=== PATIENT | female | born 1940 | race Caucasian/White ===

== ENCOUNTER 2022-07-28 17:32 | Emergency (ER) | payer MEDICARE, SELFPAY ==
--- NOTE | 2022-07-28 18:23 | PC.NURSE ---
PT ALERT AND SITTING UP IN WHEELCHAIR TALKING WITH FAMILY
[2022-07-28 19:34] LABS: POC Glucose,Bedside 273 (70-110)
[2022-07-28 19:34] LABS: POC Glucose,Bedside 209 (70-110)
--- NOTE | 2022-07-28 19:37 | XR_ITS ---
PROCEDURE INFORMATION: Exam: XR Chest Exam date and time: 07/28/2022 8:03 PM Age: 82 years old Clinical indication: Dyspnea TECHNIQUE: Imaging protocol: Radiologic exam of the chest. Views: 1 view. COMPARISON: No relevant prior studies available. FINDINGS: Lungs: Relative lucency within the upper lung zones without lobar consolidation. Pleural spaces: No pneumothorax. Heart/Mediastinum: Borderline cardiomegaly which may be projectional. Bones/joints: Degenerative changes of the shoulders. IMPRESSION: Chronic changes without definite acute process.
[2022-07-28 19:44] LABS: Coronavirus 19, PCR Not Detected (NotDetected); Influenza B, PCR Not Detected (NotDetected)
[2022-07-28 19:49] VITALS: BP 122/66; PULSE 85; RESP 16; TEMP 37.8; O2SAT 97; BMI 39.3
[2022-07-28 20:18] LABS: Basophils # 0.1 K/mm3 (0-0.2); Basophils % 0.4 % (0.1-2.0); Eosinophils % 0.1 % (0.1-12.0); Hematocrit 32.6 % (37.0-47.0); Hemoglobin 10.4 g/dL (12.2-16.2); Lymphocytes # 0.8 K/mm3 (0.7-4.5); Mean Corpuscular HGB Conc 31.9 g/dL (31.8-35.4); Mean Corpuscular Hemoglobin 30.7 pg (27.0-31.2); Mean Corpuscular Volume 96.4 fl (81-99); Mean Platelet Volume 9.5 fl (7.4-10.4); Monocytes # 1.3 K/mm3 (0.1-1.0); Monocytes % 11.2 % (1.7-9.3); Neutrophils # 9.2 K/mm3 (1.8-7.8); Neutrophils % 81.1 % (37.0-80.0); Platelet Count 267 K/mm3 (142-424); Red Blood Count 3.38 M/mm3 (4.20-5.40); White Blood Count 11.4 K/mm3 (4.8-10.8)
[2022-07-28 20:22] LABS: Influenza A, PCR Detected (NotDetected)
--- NOTE | 2022-07-28 20:23 | PC.NURSE ---
RT notified of vbg
[2022-07-28 20:24] LABS: Chloride 100 mmol/L (98-107); Sodium 131 mmol/L (136-145)
[2022-07-28 20:25] LABS: Potassium 4.4 mmoL/L (3.5-5.1)
[2022-07-28 20:27] LABS: Alanine Aminotransferase 29 U/L (12-78); Alkaline Phosphatase 101 U/L (38-126); Aspartate Amino Transferase 32 U/L (14-36); Bilirubin,Total 0.2 mg/dl (0.2-1.3); Blood Urea Nitrogen 44 mg/dl (7-17); Estimated Glomerular Filt Rate 15 ml/min (>60); GFR (African American) 18 ML/MIN (>60)
[2022-07-28 20:28] LABS: Albumin Level 3.7 g/dl (3.5-5.0); Albumin/Globulin Ratio 1.4 (1.1-1.8); Anion Gap 7.4 mEq/L (5-15); Calcium 9.2 mg/dl (8.4-10.2); Carbon Dioxide 28 mmol/L (22.0-30.0); Globulin 2.6 g/dL (1.3-3.2); Glucose 311 mg/dl (74-100); Total Protein,Serum 6.3 g/dl (6.3-8.2)
[2022-07-28 20:31] LABS: Acetone, Serum (Rapid) None Detected (None Detect)
[2022-07-28 20:38] LABS: Microscopic, Urine URINE MICROSCOPIC (MICROSCOPIC)
[2022-07-28 20:39] LABS: Appearance,Urine CLEAR (Clear); Bilirubin,Urine Negative (Negative); Blood, Urine TRACE-I (Negative); Color,Urine YELLOW (Yellow); Glucose,Urine (UA) Negative (Negative); Ketones,Urine Negative (Negative); Leukocyte Esterase,Urine Negative (Negative); Nitrate,Urine Negative (Negative); Protein,Urine 2+ (Negative); Urobilinogen,Urine 0.2 EU/dl (0.2)
[2022-07-28 20:41] LABS: VBG PH 7.36 mmol/L (7.31-7.41)
[2022-07-28 21:02] LABS: Bacteria,Urine Trace /lpf; RBC,Urine Occasional #/hpf (0-3); Squamous Epithelial Cell,Urine Occasional #/hpf (0-5); WBC,Urine Occasional #/hpf (0-3)
--- NOTE | 2022-07-28 21:12 | HMH.EDWEAK ---
Discharge Plan Disposition Patient Disposition: Home, Self-Care Prescriptions Prescriptions: New oseltamivir [Tamiflu] 30 mg capsule 30 mg PO DAILY 5 Days Qty: 5 0RF No Action fluticasone propion-salmeterol [Wixela Inhub] 250-50 mcg/dose blister with device 1 inh INHALATION BID Label Comments: INHALE 1 PUFF BY MOUTH TWICE A DAY carvedilol 12.5 mg tablet 12.5 mg PO BID Label Comments: TAKE 1 TABLET BY MOUTH TWICE A DAY WITH MORNING AND EVENING MEAL trazodone 50 mg tablet 25 mg PO HS Label Comments: TAKE 1/2 TABLET BY MOUTH EVERY DAY AT BEDTIME levothyroxine 75 mcg tablet 75 mcg PO DAILY furosemide 80 mg tablet 80 mg PO DAILY sodium bicarbonate 650 mg tablet 650 mg PO DAILY pantoprazole 40 mg tablet,delayed release (DR/EC) 40 mg PO DAILY Label Comments: TAKE 1 TABLET BY MOUTH EVERY DAY ergocalciferol (vitamin D2) 1,250 mcg (50,000 unit) capsule 1,250 mcg PO WEEKLY hydroxyzine HCl 10 mg tablet 10 mg PO DAILY duloxetine 30 mg capsule,delayed release(DR/EC) 30 mg PO DAILY ferrous gluconate 324 mg (38 mg iron) tablet 324 mg PO DAILY Label Comments: TAKE 1 TABLET BY MOUTH EVERY DAY Referrals Follow up/Referrals: Provider,Referral, MD [Primary Care Provider] - See instructions Clinical Impressions Clinical Impression: Influenza A, CRF (chronic renal failure), Complete left bundle branch block (LBBB) Instructions Patient Instructions: DI for Influenza -- Adult Discharge ED Provider: James Mitchell Weakness HPI General Chief complaint: Weakness Stated complaint: elevated blood sugar Time Seen by Provider: 07/28/22 21:12 Mode of Arrival: Wheelchair Source of Information: Patient and Medical Record Limitations: No Limitations Description of Symptoms (Recalled from ER Triage Doc. by RN): pt c/o high blood sugar and weakness, cough congestion, sneezing for 2 days History of Present Illness HPI Narrative: uri sx anbd cough and congestion over the last 2 days - has known diabetes and renal dis Complaint: generalized weakness Onset (ago): day(s) Duration: intermittent Severity: moderate Associated symptoms: denies other symptoms Related Data Home Medications Medication Instructions Recorded Confirmed carvedilol 12.5 mg tablet 12.5 mg PO BID High blood pressure 07/28/22 07/28/22 duloxetine 30 mg capsule,delayed 30 mg PO DAILY Depression 07/28/22 07/28/22 release ergocalciferol (vitamin D2) 1,250 1,250 mcg PO WEEKLY Supplement 07/28/22 07/28/22 mcg (50,000 unit) capsule ferrous gluconate 324 mg (38 mg 324 mg PO DAILY Supplement 07/28/22 07/28/22 iron) tablet fluticasone 250 mcg-salmeterol 50 1 inh inhalation BID COPD 07/28/22 07/28/22 mcg/dose blistr powdr for inhalation (Wixela Inhub) furosemide 80 mg tablet 80 mg PO DAILY fluid overload 07/28/22 07/28/22 hydroxyzine HCl 10 mg tablet 10 mg PO DAILY Anxiety 07/28/22 07/28/22 levothyroxine 75 mcg tablet 75 mcg PO DAILY thyroid 07/28/22 07/28/22 pantoprazole 40 mg tablet,delayed 40 mg PO DAILY GERD 07/28/22 07/28/22 release sodium bicarbonate 650 mg tablet 650 mg PO DAILY Kidney failure 07/28/22 07/28/22 trazodone 50 mg tablet 25 mg PO HS sleep 07/28/22 07/28/22 Previous Rx's Medication Instructions Recorded oseltamivir 30 mg capsule (Tamiflu) 30 mg PO DAILY 5 days #5 caps 07/28/22 Allergies Allergy/AdvReac Type Severity Reaction Status Date / Time Penicillins Allergy Verified 07/28/22 20:51 Sulfa (Sulfonamide Allergy Verified 07/28/22 20:51 Antibiotics) [facility] Disclaimer: The information contained in this section may have been updated after the patient was seen, as this information can be updated by other users. Social History Smoking Status: Never smoker alcohol intake: never current occupational status: retired Travel in the last 8 weeks: None ROS Obtained: Yes All systems reviewed
--- NOTE | 2022-07-28 21:24 | ECG_ITS ---
APPROVED REPORT Exam: Resting ECG HR:79 bpm ECG Measurements Heart Rate 79 AXES MI 191 P 67 QRSd 136 QRS 29 QT 399 T 78 QTc 434 Conclusion SINUS RHYTHM LEFT BUNDLE BRANCH BLOCK [120+ ms QRS DURATION, 80+ ms Q/S IN V1/V2, 85+ ms R IN I/aVL/V5/V6] ABNORMAL ECG UNCONFIRMED REPORT Electronically signed by : Boom Kebede MD 07/29/2022 20:54:26
[2022-07-28 21:48] LABS: Free T4 (Free Thyroxine) 1.33 ng/dl (0.78-2.19)
[2022-07-28 21:56] LABS: Troponin I 0.04 ng/ml (0.00-0.034)
--- NOTE | 2022-07-28 22:08 | PC.NURSE ---
pt's family Ready to leave . Dr. Mitchell would like to check with pharmacy for tamiflu dosing. Nabila @ [facility] states 30mg po daily for 5 days.
[2022-07-28 22:13] VITALS: BP 105/42; PULSE 87; RESP 20; TEMP 37.2; O2SAT 98
[2022-07-28 22:14] LABS: Thyroid Stimulating Hormone 0.69 uIU/mL (0.465-4.68)
--- NOTE | 2022-07-28 22:18 | HMH.EDGENADL ---
Discharge Plan Disposition Patient Disposition: Home, Self-Care Prescriptions Prescriptions: New oseltamivir [Tamiflu] 30 mg capsule 30 mg PO DAILY 5 Days Qty: 5 0RF No Action fluticasone propion-salmeterol [Wixela Inhub] 250-50 mcg/dose blister with device 1 inh INHALATION BID Label Comments: INHALE 1 PUFF BY MOUTH TWICE A DAY carvedilol 12.5 mg tablet 12.5 mg PO BID Label Comments: TAKE 1 TABLET BY MOUTH TWICE A DAY WITH MORNING AND EVENING MEAL trazodone 50 mg tablet 25 mg PO HS Label Comments: TAKE 1/2 TABLET BY MOUTH EVERY DAY AT BEDTIME levothyroxine 75 mcg tablet 75 mcg PO DAILY furosemide 80 mg tablet 80 mg PO DAILY sodium bicarbonate 650 mg tablet 650 mg PO DAILY pantoprazole 40 mg tablet,delayed release (DR/EC) 40 mg PO DAILY Label Comments: TAKE 1 TABLET BY MOUTH EVERY DAY ergocalciferol (vitamin D2) 1,250 mcg (50,000 unit) capsule 1,250 mcg PO WEEKLY hydroxyzine HCl 10 mg tablet 10 mg PO DAILY duloxetine 30 mg capsule,delayed release(DR/EC) 30 mg PO DAILY ferrous gluconate 324 mg (38 mg iron) tablet 324 mg PO DAILY Label Comments: TAKE 1 TABLET BY MOUTH EVERY DAY Referrals Follow up/Referrals: Provider,Referral, MD [Primary Care Provider] - See instructions Clinical Impressions Clinical Impression: Influenza A, CRF (chronic renal failure), Complete left bundle branch block (LBBB) Instructions Patient Instructions: DI for Influenza -- Adult Discharge ED Provider: James Mitchell General Adult HPI General Chief complaint: Weakness Stated complaint: elevated blood sugar Time Seen by Provider: 07/28/22 21:12 Mode of Arrival: Wheelchair Source of Information: Patient and Medical Record Limitations: No Limitations Description of Symptoms (Recalled from ER Triage Doc. by RN): pt c/o high blood sugar and weakness, cough congestion, sneezing for 2 days History of Present Illness HPI narrative: Miss Higgins is a 82 yo female w/ PMH for CKD, T2DM insulin dependent presenting to the emergency department for generalized weakness, lethargy and hyperglycemia. History provided by patients niece at bedside. Today patient became confused, sugar at that time read high on the monitor. The patients niece gave her insulin (Novalog 10) and her mentation improved. The patient also reports non productive cough, sneezing for 2d. The patient reports she was exposed to multiple individuals who were diagnosed w/ flu. She denies any chest pain, fevers, abdominal pain, bowel changes or urinary sx. MD complaint: hyperglycemia, generalized weakness and cough Onset (ago): day(s) Related Data Home Medications Medication Instructions Recorded Confirmed carvedilol 12.5 mg tablet 12.5 mg PO BID High blood pressure 07/28/22 07/28/22 duloxetine 30 mg capsule,delayed 30 mg PO DAILY Depression 07/28/22 07/28/22 release ergocalciferol (vitamin D2) 1,250 1,250 mcg PO WEEKLY Supplement 07/28/22 07/28/22 mcg (50,000 unit) capsule ferrous gluconate 324 mg (38 mg 324 mg PO DAILY Supplement 07/28/22 07/28/22 iron) tablet fluticasone 250 mcg-salmeterol 50 1 inh inhalation BID COPD 07/28/22 07/28/22 mcg/dose blistr powdr for inhalation (Wixela Inhub) furosemide 80 mg tablet 80 mg PO DAILY fluid overload 07/28/22 07/28/22 hydroxyzine HCl 10 mg tablet 10 mg PO DAILY Anxiety 07/28/22 07/28/22 levothyroxine 75 mcg tablet 75 mcg PO DAILY thyroid 07/28/22 07/28/22 pantoprazole 40 mg tablet,delayed 40 mg PO DAILY GERD 07/28/22 07/28/22 release sodium bicarbonate 650 mg tablet 650 mg PO DAILY Kidney failure 07/28/22 07/28/22 trazodone 50 mg tablet 25 mg PO HS sleep 07/28/22 07/28/22 Previous Rx's Medication Instructions Recorded oseltamivir 30 mg capsule (Tamiflu) 30 mg PO DAILY 5 days #5 caps 07/28/22 Allergies Allergy/AdvReac Type Severity Reaction Status Date / Time Penicillins Allergy Verified 07/28/22 2
== END 2022-07-28 22:25 | disposition home or self-care (01) ==
LOC: UTC 17:35 → ER 18:24
PROVIDERS: Student in an Organized Health Care Education/Training Program; Emergency Provider Emergency Medicine
DX: J10.1 Influenza due to other identified influenza virus with other respiratory manifestations (principal); N18.9 Chronic kidney disease, unspecified; I44.7 Left bundle-branch block, unspecified; Z79.899 Other long term (current) drug therapy; Z88.0 Allergy status to penicillin; Z88.2 Allergy status to sulfonamides
CPT/HCPCS: 71045; 80053; 81001; 82009; 82962; 84439; 84443; 84484; 85025; 93005; 96365; 99285; C9803; U0003; U0005

== ENCOUNTER 2023-12-22 15:30 | Emergency (ER) | payer MEDICARE, SELFPAY ==
[2023-12-22] VITALS (11 sets, daily range): BP systolic 119–161; BP diastolic 47–97; PULSE 59–75; RESP 13–18; TEMP 36.3–36.9; O2SAT 97–100; BMI 25.4
--- NOTE | 2023-12-22 15:29 | ED_ITS ---
<Statement entered by Donald Gilmore MD - 12/22/23 23:11> I was consulted by the LORRI, and we discussed the complexity of the problems being addressed. I approved the treatment and management plan for this patient's care in the emergency department, thus performing a substantive portion of the medical decision making. Donald Gilmore MD, JOHN, FACEP Discharge Plan Disposition Patient Disposition: Xfer Short-Term Hosp Condition: Serious Prescriptions Prescriptions: No Action fluticasone propion-salmeterol [Wixela Inhub] 250-50 mcg/dose blister with device 1 inh INHALATION BID Patient Comments: INHALE 1 PUFF BY MOUTH TWICE A DAY carvedilol 12.5 mg tablet 12.5 mg PO BID Patient Comments: TAKE 1 TABLET BY MOUTH TWICE A DAY WITH MORNING AND EVENING MEAL trazodone 50 mg tablet 25 mg PO HS Patient Comments: TAKE 1/2 TABLET BY MOUTH EVERY DAY AT BEDTIME levothyroxine 75 mcg tablet 75 mcg PO DAILY furosemide 80 mg tablet 80 mg PO DAILY sodium bicarbonate 650 mg tablet 650 mg PO DAILY pantoprazole 40 mg tablet,delayed release (DR/EC) 40 mg PO DAILY Patient Comments: TAKE 1 TABLET BY MOUTH EVERY DAY ergocalciferol (vitamin D2) 1,250 mcg (50,000 unit) capsule 1,250 mcg PO WEEKLY hydroxyzine HCl 10 mg tablet 10 mg PO DAILY duloxetine 30 mg capsule,delayed release(DR/EC) 30 mg PO DAILY ferrous gluconate 324 mg (38 mg iron) tablet 324 mg PO DAILY Patient Comments: TAKE 1 TABLET BY MOUTH EVERY DAY oseltamivir [Tamiflu] 30 mg capsule 30 mg PO DAILY 5 Days Qty: 5 0RF Referrals Follow up/Referrals: Provider,Referral, [Primary Care Provider] - See instructions Activity Restrictions/Add. Instructions Additional Instructions/Restrictions: Patient accepted by Dr. Vazquez at [facility] Clinical Impressions Clinical Impression: Hyperkalemia, CRF (chronic renal failure) Discharge ED Provider: Donald Gilmore General Adult HPI General Chief complaint: Recheck/Abnormal Lab/Rx Stated complaint: Abnormal Labs Time Seen by Provider: 12/22/23 15:38 History of Present Illness HPI narrative: Patient presents for evaluation of abnormal labs. To the best of my ability to determine without records, patient was admitted to [facility] several months ago and subsequently intubated and required emergent dialysis via tunneled catheter. She was subsequently transferred to the [facility] but did not require dialysis on discharge and her tunnel catheter was removed. She was then ultimately discharged to a local rehab facility 2 months ago. Patient had a potassium level drawn today that showed it to be elevated above 6. Patient herself denies chest pain fever chills hemoptysis hematochezia melena nausea vomiting diarrhea palpitations headache or any other active symptoms. Patient actually was playing [employer] today when she was notified about the abnormal lab level. Related Data Home Medications Medication Instructions Recorded Confirmed carvedilol 12.5 mg tablet 12.5 mg PO BID High blood pressure 07/28/22 07/28/22 duloxetine 30 mg capsule,delayed 30 mg PO DAILY Depression 07/28/22 07/28/22 release ergocalciferol (vitamin D2) 1,250 1,250 mcg PO WEEKLY Supplement 07/28/22 07/28/22 mcg (50,000 unit) capsule ferrous gluconate 324 mg (38 mg 324 mg PO DAILY Supplement 07/28/22 07/28/22 iron) tablet fluticasone 250 mcg-salmeterol 50 1 inh inhalation BID COPD 07/28/22 07/28/22 mcg/dose blistr powdr for inhalation (Wixela Inhub) furosemide 80 mg tablet 80 mg PO DAILY fluid overload 07/28/22 07/28/22 hydroxyzine HCl 10 mg tablet 10 mg PO DAILY Anxiety 07/28/22 07/28/22 levothyroxine 75 mcg tablet 75 mcg PO DAILY thyroid 07/28/22 07/28/22 pantoprazole 40 mg tablet,delayed 40 mg PO DAILY GERD 07/28/22 07/28/22 release sodium bicarbonate 650 mg tablet 650 mg PO DAILY Kidney failure 07/28/22 07/28/22 trazodone 50 mg tablet 25 mg PO HS sleep 07/28/22 07/28/22 Previous Rx's Medication Instructions Recorded oseltamivir 30 mg capsule (Tamiflu) 30 mg PO DAILY 5 days #5 caps 07/28/22 Allergies Allergy/AdvReac Type Severity Reaction Status Date / Time Penicillins Allergy Verified 07/28/22 20:51 Sulfa (Sulfonamide Allergy Verified 07/28/22 20:51 Antibiotics) [facility] Disclaimer: The information contained in this section may have been updated after the patient was seen, as this information can be updated by other users. Social History (Updated 07/28/22 @ 22:17 by James Mitchell MD) Smoking Status: Never smoker alcohol intake: never current occupational status: retired Travel in the last 8 weeks: None ROS Obtained: Yes Systems reviewed as appropriate & no additional complaints except as documented Physical Exam General General appearance: alert and in no apparent distress Head Head exam: atraumatic and normal inspection Eye Eye exam: Present normal appearance, PERRL and EOMI ENT ENT exam: Present normal exam, normal oropharynx and mucous membranes moist Neck Neck exam: Present normal inspection, full ROM and trachea midline; Absent lymphadenopathy Chest Chest inspection: Present normal inspection and symmetric chest wall rise Respiratory Respiratory exam: Present normal lung sounds bilaterally; Absent accessory muscle use Cardiovascular Cardiovascular exam: Present regular rate, normal rhythm, normal heart sounds, +S1 and +S2 Abdominal Exam Abdominal exam: Present soft and normal bowel sounds; Absent tenderness, guarding or rebound Extremities Exam Extremities exam: Present normal inspection and full ROM Neurological Exam Neurological exam: Present alert, oriented X3 and CN II-XII intact Psychiatric Psychiatric exam: Present normal affect and normal mood Skin Skin exam: Present warm, dry and normal color; Absent intact (Patient does have what appears to be a healing sacral decubitus ulcer that actually looks like skin shear that does not show any evidence of ulceration drainage erythema edema.) Medical Decision Making Medical Records Medical records reviewed: Yes I reviewed the patient's medical records. John Inquiry Pt receiving controlled substance: No Vital Signs: 12/22/23 15:30 Temperature 98.4 F Temperature Source Oral Pulse Rate [Right Radial] 71 Respiratory Rate 18 Blood Pressure [Right Arm] 119/75 Blood Pressure Mean [Right Arm] 89 02 Sat by Pulse Oximetry 97 Oxygen Delivery Method Room Air Lab Data Lab results reviewed: Yes I reviewed the patient's lab results. Lab Results 12/22/23 15:40: WBC 7.7, RBC 4.14 L, Hgb 12.3, Hct 38.9, MCV 93.8, MCH 29.7, M CHC 31.7 L, RDW 18.7 H, Plt Count 317, MPV 8.7, Neut % (Auto) 67.6, Lymph % (Auto) 21.5, Maries % (Auto) 7.8, Eos % (Auto) 2.4, Baso % (Auto) 0.7, Neut # (Auto) 5.2, Lymph # (Auto) 1.7, Maries # (Auto) 0.6, Eos # (Auto) 0.2, Baso # (Auto) 0.1, Sodium 138, Potassium 7.0 H*, Chloride 108 H, Carbon Dioxide 23, Anion Gap 14.0, BUN 37 H, Creatinine 3.00 H, Estimated Creat Clear 16, Estimated GFR 15 L*, Est GFR ( Amer) 18 L*, Glucose 191 H, Calcium 10.3 H, P hosphorus 5.1 H, Magnesium 1.6, Total Bilirubin 0.6, AST 54 H, ALT 47, Alkaline Phosphatase 93, Total Protein 7.7, Albumin 4.4, Globulin 3.3 H, Albumin/Globulin Ratio 1.3 12/22/23 15:40 12/22/23 15:40 Orders (Tests/Meds): ED MEDICATIONS Generic Name Dose Route Start Last Admin Trade Name Freq PRN Reason Stop Dose Admin Sodium Chloride 1,000 mls @ 999 mls/hr 12/22/23 15:58 12/22/23 16:36 Sod Chlor 0.9% 1000ml Bag IV 12/22/23 16:58 999 mls/hr .Q1H1M ONE Administration Calcium Gluconate/Sodium Chloride 1 gm in 50 mls @ 50 mls/hr 12/22/23 16:03 12/22/23 16:47 Calcium Gluconate 1,000mg/50ml Nacl Premix IV 12/22/23 17:02 50 mls/hr ONCE ONE Administration Sodium Zirconium Cyclosilicate 10 gm 12/22/23 16:00 12/22/23 16:37 Lokelma 5gm Packet PO 12/23/23 15:59 10 gm DAILY MODESTO Administration Discontinued Medications Generic Name Dose Route Start Last Admin Trade Name Freq PRN Reason Stop Dose Admin Albuterol Sulfate 20 mg 12/22/23 16:02 12/22/23 16:30 Albuterol 0.083% 2.5 Mg/3 Ml Neb IH 12/22/23 16:03 20 mg ONCE ONE Administration Dextrose 25 ml 12/22/23 16:02 12/22/23 16:46 Dextrose 50% 50ml Syringe (Crash Cart) IVP 12/22/23 16:03 25 ml ONCE ONE Administration Insulin Human Regular 10 unit 12/22/23 16:02 12/22/23 16:47 Insulin Human Regular 100 Units/Ml 10ml Vial IVP 12/22/23 16:03 10 unit ONCE ONE Administration Sodium Bicarbonate 50 meq 12/22/23 16:05 12/22/23 16:46 Sodium Bicarb 8.4% 50ml Syringe (Crash Cart) IV 12/22/23 16:06 50 meq ONCE ONE Administration ORDERS Category Date Time Status CBC w/Auto Diff [Complete Blood Count Auto Diff] Stat Lab 12/22/23 15:40 Completed CMP [Comprehensive Metabolic Panel] Stat Lab 12/22/23 15:40 Completed Magnesium Stat Lab 12/22/23 15:40 Completed PHOS [Phosphorous] Stat Lab 12/22/23 15:40 Completed Medical Decision Narrative: In summary patient is a 83-year-old female who presents to the emergency department for evaluation of hyperkalemia. Patient is dynamically stable upon arrival, afebrile. Physical exam is only remarkable for pain in her sacrum from her known sacral decubitus ulcer. EKG shows what appears to be normal sinus rhythm on the bedside monitor. Differential diagnosis includes lab error, acute on chronic renal failure, therapeutic misadventure, acute bacterial viral illness etc. Initial workup will be conducted with hematologic labs twelve-lead EKG. Initial interventions include normal saline bolus, Lokelma, albuterol treatment, D50, gram of calcium gluconate, and an amp of bicarb. Initial workup reviewed by me confirms the hyperkalemia of 7 with a creatinine of 3 and a GFR 15 which is equivalent to what it was in July 2023. Upon repeat evaluation I had an interactive discussion with hospital medicine here who declined admission due to lack of inpatient nephrology services. I then had an interactive discussion with the hospitalist service at [facility] Dr. Vazquez who has graciously accepted the patient for further evaluation and care. Critical Care Critical Care Time Critical Care Time: No
[2023-12-22 15:52] LABS: Basophils # 0.1 K/mm3 (0-0.2); Basophils % 0.7 % (0.1-2.0); Eosinophils # 0.2 K/mm3 (0.0-0.4); Eosinophils % 2.4 % (0.1-12.0); Hematocrit 38.9 % (37.0-47.0); Hemoglobin 12.3 g/dL (12.2-16.2); Lymphocytes # 1.7 K/mm3 (0.7-4.5); Lymphocytes % 21.5 % (10-50); Mean Corpuscular HGB Conc 31.7 g/dL (31.8-35.4); Mean Corpuscular Hemoglobin 29.7 pg (27.0-31.2); Mean Corpuscular Volume 93.8 fl (81-99); Mean Platelet Volume 8.7 fl (7.4-10.4); Monocytes # 0.6 K/mm3 (0.1-1.0); Monocytes % 7.8 % (1.7-9.3); Neutrophils # 5.2 K/mm3 (1.8-7.8); Neutrophils % 67.6 % (37.0-80.0); Platelet Count 317 K/mm3 (142-424); Red Blood Count 4.14 M/mm3 (4.20-5.40); Red Cell Distribution Width 18.7 % (11.5-17.5); White Blood Count 7.7 K/mm3 (4.8-10.8)
--- NOTE | 2023-12-22 15:52 | ECG_ITS ---
APPROVED REPORT Exam: Resting ECG HR:69 bpm ECG Measurements Heart Rate 69 AXES UT 204 P 74 QRSd 138 QRS 82 QT 405 T -11 QTc 425 Conclusion SINUS RHYTHM INTRAVENTRICULAR CONDUCTION DELAY [130+ ms QRS DURATION] ABNORMAL ECG UNCONFIRMED REPORT Electronically signed by : Ivan Gilmore, 12/22/2023 23:13:36
[2023-12-22 15:56] LABS: Chloride 108 mmol/L (98-107); Sodium 138 mmol/L (136-145)
[2023-12-22 15:59] LABS: Alanine Aminotransferase 47 U/L (12-78); Albumin Level 4.4 g/dl (3.5-5.0); Albumin/Globulin Ratio 1.3 (1.1-1.8); Alkaline Phosphatase 93 U/L (38-126); Aspartate Amino Transferase 54 U/L (14-36); Bilirubin,Total 0.6 mg/dl (0.2-1.3); Blood Urea Nitrogen 37 mg/dl (7-17); Carbon Dioxide 23 mmol/L (22.0-30.0); Creatinine Clearance Estimated 16 mL/min (50-200); Estimated Glomerular Filt Rate 15 ml/min (>60); GFR (African American) 18 ML/MIN (>60); Globulin 3.3 g/dL (1.3-3.2); Phosphorous 5.1 mg/dl (2.5-4.5); Total Protein,Serum 7.7 g/dl (6.3-8.2)
--- NOTE | 2023-12-22 15:59 | PC.NURSE ---
Critical potassium of 7 called from [place] in the LAB. Repeated and verified. Pako MONTES notified of critical value.
[2023-12-22 16:00] LABS: Calcium 10.3 mg/dl (8.4-10.2); Glucose 191 mg/dl (74-100); Magnesium 1.6 mg/dl (1.6-2.3)
--- NOTE | 2023-12-22 16:10 | PC.NURSE ---
[place] speaking with Dr. Hammer
--- NOTE | 2023-12-22 16:11 | PC.NURSE ---
Called RT for 1 hour continuous neb
--- NOTE | 2023-12-22 16:21 | PC.NURSE ---
called [facility] transport [place]
[2023-12-22] MEDS: ALBUTEROL 0.083% 2.5 MG/3 ML NEB 20 MG IH (16:30)
[2023-12-22] MEDS: 0.9 % SODIUM CHLORIDE 1000ML 1,000 ML 999 ML IV (16:36)
[2023-12-22] MEDS: LOKELMA 5GM PACKET 10 GM PO ×2 (16:37→21:34)
--- NOTE | 2023-12-22 16:39 | PC.NURSE ---
FARA MONTES SPEAKING WITH [place] FOR ADMISSION
[2023-12-22] MEDS: DEXTROSE 50% 50ML SYRINGE (CRASH CART) 25 ML IVP (16:46)
[2023-12-22] MEDS: SODIUM BICARB 8.4% 50ML SYRINGE (CRASH CART) 50 MEQ IV (16:46)
[2023-12-22] MEDS: INSULIN HUMAN REGULAR 100 UNITS/ML 10ML VIAL 10 UNIT IVP (16:47)
[2023-12-22] MEDS: CALCIUM GLUC IN NACL, ISO-OSM 1 GM/50 ML BAG IV (16:47)
--- NOTE | 2023-12-22 16:51 | PC.NURSE ---
Pt accepted to [facility] Dr. Vazquez
--- NOTE | 2023-12-22 17:04 | PC.NURSE ---
Faxed pt face-sheet to [facility] [phone]. Transfer center states Dr. Vazquez accepted pt, Med/Surg unit room 126. Nurse report [phone]
--- NOTE | 2023-12-22 17:32 | PC.NURSE ---
awaiting a call back from [place] to give report
--- NOTE | 2023-12-22 18:06 | PC.NURSE ---
report called to Jessica @ [place] ,
--- NOTE | 2023-12-22 19:04 | PC.NURSE ---
Pt's family is getting pt dinner from [employer], and she left her phone number [phone]
--- NOTE | 2023-12-22 20:18 | PC.NURSE ---
attempted to draw repeat potassium level from patient IV. IV will not draw so [employer] has been called
[2023-12-22 20:42] LABS: Potassium 5.8 mmoL/L (3.5-5.1)
--- NOTE | 2023-12-22 21:22 | PC.NURSE ---
EMS notified of need for transport
[2023-12-22] MEDS: ONDANSETRON 4MG/2ML VIAL 4 MG IV (21:33)
--- NOTE | 2023-12-22 22:00 | PC.NURSE ---
ems on scene in ER gave report, but then they got toned out and delayed patient transport again, pt and family made aware
== END 2023-12-22 23:46 | disposition short-term general hospital (02) ==
PROVIDERS: Physician Assistant; Emergency Provider Emergency Medicine
DX: E87.5 Hyperkalemia (principal); N18.9 Chronic kidney disease, unspecified; L89.159 Pressure ulcer of sacral region, unspecified stage
CPT/HCPCS: 36415; 80053; 83735; 84100; 84132; 85025; 93005; 96365; 96375; 99285; J2405

== ENCOUNTER 2024-05-28 08:24 | Outpatient (CLI) | payer MEDICARE, SELFPAY ==
[2024-05-28] VITALS (12 sets, daily range): BP systolic 106–133; BP diastolic 39–54; PULSE 60–64; RESP 14–18; TEMP 36.3–36.8; O2SAT 98–100; BMI 27.4
[2024-05-28] MEDS: 0.9 % SODIUM CHLORIDE 250 ML 25 ML IV (12:35)
== END 2024-05-28 16:17 | disposition home or self-care (01) ==
PROVIDERS: Visit Provider Family Medicine
DX: D64.9 Anemia, unspecified (principal)
CPT/HCPCS: 36430; 86850; P9016

== ENCOUNTER 2024-05-29 14:05 | Outpatient (CLI) | payer MEDICARE, SELFPAY ==
[2024-05-29 15:05] LABS: Basophils % 0.4 % (0.1-2.0); Eosinophils # 0.2 K/mm3 (0.0-0.4); Eosinophils % 2.8 % (0.1-12.0); Hematocrit 24.3 % (37.0-47.0); Hemoglobin 7.7 g/dL (12.2-16.2); Lymphocytes # 1.2 K/mm3 (0.7-4.5); Lymphocytes % 19.6 % (10-50); Mean Corpuscular HGB Conc 31.7 g/dL (31.8-35.4); Mean Corpuscular Hemoglobin 30.9 pg (27.0-31.2); Mean Corpuscular Volume 97.4 fl (81-99); Mean Platelet Volume 8.9 fl (7.4-10.4); Monocytes # 0.6 K/mm3 (0.1-1.0); Monocytes % 10.2 % (1.7-9.3); Neutrophils % 67.1 % (37.0-80.0); Platelet Count 319 K/mm3 (142-424); Red Blood Count 2.49 M/mm3 (4.20-5.40); Red Cell Distribution Width 15.8 % (11.5-17.5)
[2024-05-29 17:05] LABS: Chloride 105 mmol/L (98-107)
[2024-05-29 17:06] LABS: Sodium 136 mmol/L (136-145)
[2024-05-29 17:08] LABS: Blood Urea Nitrogen 53 mg/dl (7-17); Estimated Glomerular Filt Rate 16 ml/min (>60); GFR (African American) 20 ML/MIN (>60); Iron 57 ug/dL (37-170); Potassium 5.9 mmoL/L (3.5-5.1)
[2024-05-29 17:09] LABS: Calcium 8.8 mg/dl (8.4-10.2); Glucose 137 mg/dl (74-100)
[2024-05-29 18:01] LABS: Anion Gap 10.9 mEq/L (5-15); Carbon Dioxide 26 mmol/L (22.0-30.0)
[2024-05-29 19:08] LABS: Vitamin B12 270 pg/mL (239-931)
[2024-05-29 19:26] LABS: Folate 5.32 ng/mL
== END 2024-05-29 23:59 | disposition home or self-care (01) ==
LOC: LAB.DROPOF 14:09
PROVIDERS: PCP Family Medicine; Visit Provider Family Medicine
DX: N18.32 Chronic kidney disease, stage 3b (principal); N17.9 Acute kidney failure, unspecified; I13.0 Hypertensive heart and chronic kidney disease with heart failure and stage 1 through stage 4 chronic kidney disease, or unspecified chronic kidney disease; I50.33 Acute on chronic diastolic (congestive) heart failure; J44.9 Chronic obstructive pulmonary disease, unspecified; J96.01 Acute respiratory failure with hypoxia; I25.10 Atherosclerotic heart disease of native coronary artery without angina pectoris; D63.8 Anemia in other chronic diseases classified elsewhere; E44.0 Moderate protein-calorie malnutrition; E87.5 Hyperkalemia; E78.5 Hyperlipidemia, unspecified; F41.8 Other specified anxiety disorders; R53.81 Other malaise; E11.9 Type 2 diabetes mellitus without complications
CPT/HCPCS: 80048; 82607; 82746; 83540; 85025

== ENCOUNTER 2024-06-01 10:17 | Outpatient (CLI) | payer MEDICARE, SELFPAY ==
[2024-06-01 10:30] LABS: Basophils % 0.5 % (0.1-2.0); Eosinophils # 0.2 K/mm3 (0.0-0.4); Lymphocytes # 1.1 K/mm3 (0.7-4.5); Lymphocytes % 24.2 % (10-50); Mean Corpuscular Hemoglobin 31.1 pg (27.0-31.2); Mean Corpuscular Volume 97.4 fl (81-99); Mean Platelet Volume 8.8 fl (7.4-10.4); Monocytes # 0.6 K/mm3 (0.1-1.0); Monocytes % 13.8 % (1.7-9.3); Neutrophils # 2.5 K/mm3 (1.8-7.8); Neutrophils % 56.4 % (37.0-80.0); Platelet Count 295 K/mm3 (142-424); Red Blood Count 2.56 M/mm3 (4.20-5.40); Red Cell Distribution Width 15.2 % (11.5-17.5); White Blood Count 4.5 K/mm3 (4.8-10.8)
[2024-06-01 11:18] LABS: Chloride 106 mmol/L (98-107); Potassium 5.7 mmoL/L (3.5-5.1); Sodium 138 mmol/L (136-145)
[2024-06-01 11:21] LABS: Anion Gap 9.7 mEq/L (5-15); Blood Urea Nitrogen 49 mg/dl (7-17); Calcium 9.4 mg/dl (8.4-10.2); Carbon Dioxide 28 mmol/L (22.0-30.0); Estimated Glomerular Filt Rate 18 ml/min (>60); GFR (African American) 22 ML/MIN (>60); Glucose 64 mg/dl (74-100)
== END 2024-06-01 23:59 | disposition home or self-care (01) ==
LOC: LAB.DROPOF 09-26 08:07
PROVIDERS: Visit Provider Family Medicine
DX: N17.9 Acute kidney failure, unspecified (principal); I13.0 Hypertensive heart and chronic kidney disease with heart failure and stage 1 through stage 4 chronic kidney disease, or unspecified chronic kidney disease; I50.33 Acute on chronic diastolic (congestive) heart failure; N18.32 Chronic kidney disease, stage 3b; J44.9 Chronic obstructive pulmonary disease, unspecified; J96.01 Acute respiratory failure with hypoxia; I25.10 Atherosclerotic heart disease of native coronary artery without angina pectoris; D63.8 Anemia in other chronic diseases classified elsewhere; E44.0 Moderate protein-calorie malnutrition; E87.5 Hyperkalemia; E78.5 Hyperlipidemia, unspecified; F41.8 Other specified anxiety disorders; R53.81 Other malaise; E11.9 Type 2 diabetes mellitus without complications
CPT/HCPCS: 80048; 85025

== ENCOUNTER 2024-06-03 19:00 | Outpatient (CLI) | payer MEDICARE, SELFPAY ==
[2024-06-03 20:15] LABS: Chloride 108 mmol/L (98-107); Sodium 138 mmol/L (136-145)
[2024-06-03 20:18] LABS: Blood Urea Nitrogen 52 mg/dl (7-17); Estimated Glomerular Filt Rate 18 ml/min (>60); GFR (African American) 22 ML/MIN (>60)
[2024-06-03 20:19] LABS: Anion Gap 9.2 mEq/L (5-15); Carbon Dioxide 27 mmol/L (22.0-30.0); Glucose 138 mg/dl (74-100)
[2024-06-03 20:28] LABS: Potassium 6.2 mmoL/L (3.5-5.1)
== END 2024-06-03 23:59 | disposition home or self-care (01) ==
LOC: LAB.DROPOF 09-26 08:08
PROVIDERS: Visit Provider Family Medicine
DX: N18.9 Chronic kidney disease, unspecified (principal); Z79.899 Other long term (current) drug therapy
CPT/HCPCS: 80048

== ENCOUNTER 2024-06-10 06:54 | Outpatient (CLI) | payer MEDICARE, SELFPAY ==
[2024-06-10 07:27] LABS: Chloride 108 mmol/L (98-107); Sodium 141 mmol/L (136-145)
[2024-06-10 07:28] LABS: Potassium 4.1 mmoL/L (3.5-5.1)
[2024-06-10 07:30] LABS: Blood Urea Nitrogen 41 mg/dl (7-17); Estimated Glomerular Filt Rate 18 ml/min (>60); GFR (African American) 22 ML/MIN (>60)
[2024-06-10 07:31] LABS: Anion Gap 10.1 mEq/L (5-15); Calcium 8.8 mg/dl (8.4-10.2); Carbon Dioxide 27 mmol/L (22.0-30.0); Glucose 63 mg/dl (74-100)
== END 2024-06-10 23:59 | disposition home or self-care (01) ==
LOC: LAB.DROPOF 06:58
PROVIDERS: PCP Family Medicine; Visit Provider Family Medicine
DX: N18.9 Chronic kidney disease, unspecified (principal); Z79.899 Other long term (current) drug therapy
CPT/HCPCS: 80048

== ENCOUNTER 2024-06-19 06:57 | Outpatient (CLI) | payer MEDICARE, SELFPAY ==
[2024-06-19 08:10] LABS: Basophils % 0.6 % (0.1-2.0); Eosinophils # 0.1 K/mm3 (0.0-0.4); Eosinophils % 2.6 % (0.1-12.0); Lymphocytes # 1.4 K/mm3 (0.7-4.5); Mean Corpuscular HGB Conc 31.7 g/dL (31.8-35.4); Mean Corpuscular Hemoglobin 29.5 pg (27.0-31.2); Mean Corpuscular Volume 92.9 fl (81-99); Mean Platelet Volume 7.8 fl (7.4-10.4); Monocytes # 0.6 K/mm3 (0.1-1.0); Monocytes % 10.2 % (1.7-9.3); Neutrophils # 3.4 K/mm3 (1.8-7.8); Neutrophils % 61.6 % (37.0-80.0); Platelet Count 482 K/mm3 (142-424); Red Blood Count 2.23 M/mm3 (4.20-5.40); Red Cell Distribution Width 15.7 % (11.5-17.5); White Blood Count 5.5 K/mm3 (4.8-10.8)
[2024-06-19 08:24] LABS: Chloride 107 mmol/L (98-107); Sodium 137 mmol/L (136-145)
[2024-06-19 08:27] LABS: Blood Urea Nitrogen 39 mg/dl (7-17); Calcium 8.6 mg/dl (8.4-10.2); Carbon Dioxide 27 mmol/L (22.0-30.0); Estimated Glomerular Filt Rate 19 ml/min (>60); GFR (African American) 23 ML/MIN (>60); Glucose 71 mg/dl (74-100)
[2024-06-19 08:33] LABS: Hematocrit 20.7 % (37.0-47.0); Hemoglobin 6.6 g/dL (12.2-16.2)
== END 2024-06-19 23:59 | disposition home or self-care (01) ==
LOC: LAB.DROPOF 06:59
PROVIDERS: PCP Family Medicine; Visit Provider Family Medicine
DX: I13.0 Hypertensive heart and chronic kidney disease with heart failure and stage 1 through stage 4 chronic kidney disease, or unspecified chronic kidney disease (principal); I50.33 Acute on chronic diastolic (congestive) heart failure; E11.22 Type 2 diabetes mellitus with diabetic chronic kidney disease; N18.32 Chronic kidney disease, stage 3b; E87.70 Fluid overload, unspecified; J44.9 Chronic obstructive pulmonary disease, unspecified; J96.01 Acute respiratory failure with hypoxia; I25.10 Atherosclerotic heart disease of native coronary artery without angina pectoris; D63.8 Anemia in other chronic diseases classified elsewhere; E78.5 Hyperlipidemia, unspecified; E44.0 Moderate protein-calorie malnutrition; E87.5 Hyperkalemia; F41.8 Other specified anxiety disorders; E03.9 Hypothyroidism, unspecified; I44.7 Left bundle-branch block, unspecified; J18.9 Pneumonia, unspecified organism; J90 Pleural effusion, not elsewhere classified; K21.9 Gastro-esophageal reflux disease without esophagitis; G47.00 Insomnia, unspecified; L29.9 Pruritus, unspecified; R52 Pain, unspecified; R53.81 Other malaise; N17.9 Acute kidney failure, unspecified
CPT/HCPCS: 80048; 85025

== ENCOUNTER 2024-06-20 08:56 | Outpatient (CLI) | payer MEDICARE, SELFPAY ==
[2024-06-20] VITALS (11 sets, daily range): BP systolic 138–164; BP diastolic 52–88; PULSE 68–79; RESP 14–18; TEMP 36.4–36.7; O2SAT 98–100; BMI 26.7
[2024-06-20] MEDS: 0.9 % SODIUM CHLORIDE 250 ML 25 ML IV (10:22)
--- NOTE | 2024-06-20 12:43 | PC.NURSE ---
1225 Transfusion of PRBC complete at this time. VSS. Patient tolerated transfusion well with no s/s of reaction or problems noted. Patient denies complaints. Resting and watching TV.
== END 2024-06-20 13:25 | disposition home or self-care (01) ==
LOC: INF 09:02
PROVIDERS: Visit Provider Family Medicine
DX: D64.9 Anemia, unspecified (principal)
CPT/HCPCS: 36430; 86850; P9016

== ENCOUNTER 2024-06-24 16:26 | Outpatient (CLI) | payer MEDICARE, SELFPAY ==
[2024-06-24 17:07] LABS: Anion Gap 10.5 mEq/L (5-15); Blood Urea Nitrogen 33 mg/dl (7-17); Carbon Dioxide 28 mmol/L (22.0-30.0); Chloride 106 mmol/L (98-107); Estimated Glomerular Filt Rate 18 ml/min (>60); GFR (African American) 21 ML/MIN (>60); Glucose 99 mg/dl (74-100); Potassium 5.5 mmoL/L (3.5-5.1); Sodium 139 mmol/L (136-145)
== END 2024-06-24 23:59 | disposition home or self-care (01) ==
LOC: LAB.DROPOF 16:27
PROVIDERS: PCP Family Medicine; Visit Provider Family Medicine
DX: N18.9 Chronic kidney disease, unspecified (principal); Z79.899 Other long term (current) drug therapy
CPT/HCPCS: 80048

== ENCOUNTER 2024-06-25 06:50 | Outpatient (CLI) | payer MEDICARE, SELFPAY ==
[2024-06-25 07:17] LABS: Chloride 107 mmol/L (98-107); Potassium 5.1 mmoL/L (3.5-5.1); Sodium 138 mmol/L (136-145)
[2024-06-25 07:20] LABS: Anion Gap 8.1 mEq/L (5-15); Blood Urea Nitrogen 34 mg/dl (7-17); Calcium 8.8 mg/dl (8.4-10.2); Carbon Dioxide 28 mmol/L (22.0-30.0); Estimated Glomerular Filt Rate 19 ml/min (>60); GFR (African American) 23 ML/MIN (>60); Glucose 77 mg/dl (74-100)
== END 2024-06-25 23:59 | disposition home or self-care (01) ==
LOC: LAB.DROPOF 06:50
PROVIDERS: PCP Family Medicine; Visit Provider Family Medicine
DX: I13.0 Hypertensive heart and chronic kidney disease with heart failure and stage 1 through stage 4 chronic kidney disease, or unspecified chronic kidney disease (principal); I50.33 Acute on chronic diastolic (congestive) heart failure; E11.22 Type 2 diabetes mellitus with diabetic chronic kidney disease; N18.32 Chronic kidney disease, stage 3b; E87.70 Fluid overload, unspecified; J44.9 Chronic obstructive pulmonary disease, unspecified; J96.01 Acute respiratory failure with hypoxia; D63.8 Anemia in other chronic diseases classified elsewhere; E78.5 Hyperlipidemia, unspecified; E44.0 Moderate protein-calorie malnutrition; E87.5 Hyperkalemia; F41.8 Other specified anxiety disorders; E03.9 Hypothyroidism, unspecified; I44.7 Left bundle-branch block, unspecified; J18.9 Pneumonia, unspecified organism; J90 Pleural effusion, not elsewhere classified; K21.9 Gastro-esophageal reflux disease without esophagitis; G47.00 Insomnia, unspecified; L29.9 Pruritus, unspecified; R52 Pain, unspecified; R53.81 Other malaise; N17.9 Acute kidney failure, unspecified
CPT/HCPCS: 80048

== ENCOUNTER 2024-08-19 09:13 | Observation (INO) | payer MEDICARE, SELFPAY ==
[2024-08-19] VITALS (33 sets, daily range): BP systolic 132–210; BP diastolic 55–105; PULSE 68–89; RESP 13–19; TEMP 36.4–37; O2SAT 90–100; BMI 27.4; BMI 28.7
--- NOTE | 2024-08-19 09:14 | ECG_ITS ---
APPROVED REPORT Exam: Resting ECG HR:72 bpm ECG Measurements Heart Rate 72 AXES CA 182 P 28 QRSd 137 QRS 3 QT 414 T 128 QTc 439 Conclusion Sinus rhythm Left bundle branch block Left atrial enlargement Sgarbossa negative Electronically signed by : GHADA DAVIS, 08/20/2024 15:16:36
--- NOTE | 2024-08-19 09:22 | XR_ITS ---
FINAL REPORT CLINICAL HISTORY: Shortness of breath with exertion COMPARISON: 07/28/2022 FINDINGS: The heart is mildly enlarged. The mediastinum is normal. There is dense lower lobe consolidation, which is new since the previous exam. There is a moderate left pleural effusion, which is also new since the previous exam. There is diffuse coarse interstitial opacity. There is no pneumothorax. There is no osseous abnormality. IMPRESSION: New dense left lower lobe consolidation and moderate left pleural effusion. Reviewed, Interpreted and Dictated by Cl Renteria MD Transcribed by Rosa Phan Authenticated and [facility]
--- NOTE | 2024-08-19 09:28 | PC.NURSE ---
DR DAVIS AT BEDSIDE
--- NOTE | 2024-08-19 09:31 | [facility].EDCP ---
Discharge Plan Disposition Patient Disposition: Admitted Chief Complaint: Shortness of Breath/Dyspnea Prescriptions Prescriptions: No Action carvedilol 12.5 mg tablet 12.5 mg PO BID Patient Comments: TAKE 1 TABLET BY MOUTH TWICE A DAY WITH MORNING AND EVENING MEAL trazodone 50 mg tablet 25 mg PO HS PRN (Reason: sleep) Patient Comments: TAKE 1/2 TABLET BY MOUTH EVERY DAY AT BEDTIME levothyroxine 75 mcg tablet 75 mcg PO DAILY furosemide 80 mg tablet 80 mg PO DAILY sodium bicarbonate 650 mg tablet 650 mg PO DAILY pantoprazole 40 mg tablet,delayed release (DR/EC) 40 mg PO DAILY Patient Comments: TAKE 1 TABLET BY MOUTH EVERY DAY ergocalciferol (vitamin D2) 1,250 mcg (50,000 unit) capsule 1,250 mcg PO WEEKLY hydroxyzine HCl 10 mg tablet 10 mg PO DAILY duloxetine 30 mg capsule,delayed release(DR/EC) 30 mg PO DAILY atorvastatin 80 mg Tablet 80 mg PO HS ipratropium-albuterol 0.5 mg-3 mg(2.5 mg base)/3 mL Solution For Nebulization 3 ml INHALATION Q4H PRN (Reason: soa/wheezing) hydralazine 25 mg Tablet 25 mg PO TID acetaminophen 650 mg Tablet 650 mg PO Q4H PRN (Reason: pain/fever) isosorbide mononitrate 60 mg Tablet Extended Release 24 Hr 60 mg PO DAILY amlodipine 10 mg Tablet 10 mg PO DAILY diphenhydramine HCl 25 mg Tablet 25 mg PO TID PRN (Reason: Itching) diphenhydramine HCl 25 mg Tablet 25 mg PO HS nitroglycerin 0.4 mg Tablet, Sublingual 0.4 mg SUBLINGUAL Q5M PRN (Reason: cp) Rx Instructions: do not exceed 3 doses per episode bumetanide 1 mg Tablet 1 mg PO BID aspirin 81 mg Tablet 81 mg PO DAILY nystatin 100,000 unit/gram Powder 1 applic TOPICAL BID ferrous sulfate 325 mg (65 mg iron) Tablet,Delayed Release (Dr/Ec) 325 mg PO BID fluticasone propionate 50 mcg/actuation [place],Suspension 1 spray INTRANASAL DAILY Rx Instructions: administer into each nostril insulin lispro [Humalog KwikPen Insulin] 100 unit/mL Insulin Pen 5 unit SQ TID budesonide-formoterol 160-4.5 mcg/actuation Hfa Aerosol Inhaler 2 puff INHALATION BID melatonin 10 mg Tablet 10 mg PO HS PRN (Reason: Sleep) insulin glargine U-300 conc [Toujeo SoloStar U-300 Insulin] 300 unit/mL (1.5 mL) Insulin Pen 10 unit SQ HS Lokelma 5 gram Powder In Packet 5 g PO DAILY sennosides-docusate sodium 8.6-50 mg Capsule 2 tab-cap PO BID PRN (Reason: Constipation) Referrals Follow up/Referrals: Provider,Referral, MD [Primary Care Provider] - See instructions Clinical Impressions Clinical Impression: CHF exacerbation, Acute blood loss anemia, Symptomatic anemia Print Language Print Language: Irish Discharge ED Provider: Humza Christy HPI General Chief Complaint: Shortness of Breath/Dyspnea Stated Complaint: SOA Time Seen by Provider: 08/19/24 09:22 Mode of Arrival: EMS Source of Information: Patient and EMS Limitations: No Limitations Description of Symptoms (Recalled from ER Triage Doc. by RN): pt presents to ED via ems for shortness of air. pt lives at [facility]. ems report pt had long tubing reaching from pt to oxygen tank. ems shortened tubing and pt reports to feeling better. pt wears 3L NC baseline. History of Present Illness HPI narrative: Please note that above description of symptoms, in this electronic medical record under categorization of recalled from ER triage doctor by RN are reflective of an initial nursing assessment, however, is not reflective of my full history and physical exam that was personally taken and clarified. Consequentially, this preceding description of symptoms, which may include the patient's categorized chief complaint in the EMR, do not reflect my personal clinical impression, and the ultimate description of history of present illness and patient stated complaints should be deferred to this section of the note. Unless stated otherwise or congruent with this section of the note, additional signs, symptoms, or incongruence should be interpreted as inaccurate with my clinical impression. Related Data Home Medications ?Medication ?Instructions ?Recorded ?Confirmed carvedilol 12.5 mg tablet 12.5 mg PO BID High blood pressure 07/28/22 06/20/24 duloxetine 30 mg capsule,delayed 30 mg PO DAILY Depression 07/28/22 06/20/24 release ergocalciferol (vitamin D2) 1,250 1,250 mcg PO WEEKLY Supplement 07/28/22 06/20/24 mcg (50,000 unit) capsule furosemide 80 mg tablet 80 mg PO DAILY fluid overload 07/28/22 06/20/24 hydroxyzine HCl 10 mg tablet 10 mg PO DAILY Anxiety 07/28/22 06/20/24 levothyroxine 75 mcg tablet 75 mcg PO DAILY thyroid 07/28/22 06/20/24 pantoprazole 40 mg tablet,delayed 40 mg PO DAILY GERD 07/28/22 06/20/24 release sodium bicarbonate 650 mg tablet 650 mg PO DAILY Kidney failure 07/28/22 06/20/24 trazodone 50 mg tablet 25 mg PO HS PRN sleep 07/28/22 06/20/24 acetaminophen 650 mg tablet 650 mg PO Q4H PRN pain/fever 05/28/24 06/20/24 amlodipine 10 mg tablet 10 mg PO DAILY 05/28/24 06/20/24 aspirin 81 mg tablet 81 mg PO DAILY 05/28/24 06/20/24 atorvastatin 80 mg tablet 80 mg PO HS 05/28/24 06/20/24 budesonide-formoterol HFA 160 2 puff inhalation BID 05/28/24 06/20/24 mcg-4.5 mcg/actuation aerosol inhaler bumetanide 1 mg tablet 1 mg PO BID 05/28/24 06/20/24 diphenhydramine HCl 25 mg tablet 25 mg PO HS 05/28/24 06/20/24 diphenhydramine HCl 25 mg tablet 25 mg PO TID PRN Itching 05/28/24 06/20/24 ferrous sulfate 325 mg (65 mg 325 mg PO BID 05/28/24 06/20/24 iron) tablet,delayed release fluticasone propionate 50 1 spray intranasal DAILY 05/28/24 06/20/24 mcg/actuation nasal spray,suspension hydralazine 25 mg tablet 25 mg PO TID 05/28/24 06/20/24 insulin glargine U-300 conc 300 10 unit SQ HS 05/28/24 06/20/24 unit/mL (1.5 mL) subcutaneous pen (Toujeo SoloStar U-300 Insulin) insulin lispro 100 unit/mL 5 unit SQ TID 05/28/24 06/20/24 subcutaneous pen (Humalog KwikPen (U-100) Insulin) ipratropium 0.5 mg-albuterol 3 mg 3 ml inhalation Q4H PRN 05/28/24 06/20/24 (2.5 mg base)/3 mL nebulization soa/wheezing soln isosorbide mononitrate 60 mg 60 mg PO DAILY 05/28/24 06/20/24 tablet,extended release 24 hr melatonin 10 mg tablet 10 mg PO HS PRN Sleep 05/28/24 06/20/24 nitroglycerin 0.4 mg sublingual 0.4 mg sublingual Q5M PRN cp 05/28/24 06/20/24 tablet nystatin 100,000 unit/gram topical 1 applic topical BID 05/28/24 06/20/24 powder sennosides 8.6 mg-docusate sodium 2 tab-cap PO BID PRN Constipation 05/28/24 06/20/24 50 mg capsule sodium zirconium cyclosilicate 5 5 g PO DAILY 05/28/24 06/20/24 gram oral powder packet (Lokelma) Allergies Allergy/AdvReac Type Severity Reaction Status Date / Time adhesive tape Allergy Unknown Verified 06/20/24 11:26 allergy reaction ciprofloxacin Allergy Unknown Verified 06/20/24 11:26 allergy reaction codeine Allergy Unknown Verified 06/20/24 11:26 allergy reaction doxycycline Allergy Unknown Verified 06/20/24 11:26 allergy reaction erythromycin base Allergy Unknown Verified 06/20/24 11:26 allergy reaction latex Allergy Unknown Verified 06/20/24 11:26 allergy reaction Penicillins Allergy Unknown Verified 06/20/24 11:26 allergy reaction Sulfa (Sulfonamide Allergy Unknown Verified 06/20/24 11:26 Antibiotics) allergy reaction PFSH PFSH Disclaimer: The information contained in this section may have been updated after the patient was seen, as this information can be updated by other users. Medical History (Updated 08/19/24 @ 12:20 by Humza Christy MD) Diabetes mellitus Anemia COPD (chronic obstructive pulmonary disease) Anxiety HLD (hyperlipidemia) CKD (chronic kidney disease) Heart failure Surgical History H/O tubal ligation H/O cataract removal with insertion of prosthetic lens H/O hand surgery History of appendectomy Social History (Updated 06/20/24 @ 09:36 by Francoise Savage RN) Smoking Status: Former smoker alcohol intake: never current occupational status: retired Travel in the last 8 weeks: None Have you lived/traveled outside [place] in past 30 days?: No Contact w/someone who lives/traveled outside US past 30 days?: No Exposure to someone with infectious disease in past 14 days?: No Do you have a fever (greater than 100.4 F or 38 C)?: No Have you tested positive for COVID-19: No Exposed to someone with COVID-19 in past 14 days?: No Do you have a sore throat?: No Do you have a cough?: No Do you have any weakness?: No Do you have any diarrhea?: No Are you experiencing any unusual bleeding?: No Do you have any muscle aches/pain?: No Do you have any abdominal pain?: No Are you experiencing loss of taste or smell?: No ROS Obtained: Yes All systems reviewed & no additional complaints except as documented Physical Exam General General appearance: alert and in no apparent distress Neck Neck exam: Present trachea midline Chest Chest inspection: Present normal inspection and symmetric chest wall rise Respiratory Respiratory exam: Present normal lung sounds bilaterally and other (3 L nasal cannula in place with oxygen saturation in upper 90s); Absent respiratory distress, wheezes, stridor, accessory muscle use or prolonged expiratory phase Cardiovascular Cardiovascular exam: Present regular rate, normal rhythm and other (Pulses equal and symmetric in upper and lower extremities) Abdominal Exam Abdominal exam: Present soft; Absent distention, tenderness, guarding, rebound or rigidity Extremities Exam Extremities exam: Absent edema Neurological Exam Neurological exam: Present alert, oriented X3 and CN II-XII intact; Absent motor sensory deficit Skin Skin exam: Present warm, dry and pallor; Absent cyanosis or diaphoresis HEART Score HEART Score HEART Score assessment performed?: Yes HEART Score: 5 Critical Care Critical Care Time Critical Care Time: Yes (GI, hematologic) Attestation: On 08/19/24, the high probability of a clinically significant, sudden or life threatening deterioration of the following system(s) required my full and direct attention, intervention and personal management. The time I documented below is in addition to time spent performing reported procedures but includes the following listed in this critical care notation. Total Time Total Critical Care Time: 60 Medical Decision Making Medical Records Medical records reviewed: Yes I reviewed the patient's medical records. John Inquiry Pt receiving controlled substance: No John was queried for this patient: No Vital Signs Vital Signs: 08/19/24 09:13 08/19/24 09:31 08/19/24 10:01 Temperature 98.0 F Temperature Source Oral Pulse Rate 69 68 Pulse Rate [Left Radial] 74 Respiratory Rate 13 16 14 Blood Pressure 166/62 H 147/58 H Blood Pressure [Right Arm] 158/55 H Blood Pressure Mean 96 87 Blood Pressure Mean [Right Arm] 89 02 Sat by Pulse Oximetry 96 98 99 Oxygen Delivery Method Nasal Cannula Oxygen Flow Rate (LPM) 3 08/19/24 10:31 08/19/24 11:00 08/19/24 11:30 Temperature Temperature Source Pulse Rate 75 73 73 Pulse Rate [Left Radial] Respiratory Rate 16 19 18 Blood Pressure 160/63 H 144/59 H 144/58 H Blood Pressure [Right Arm] Blood Pressure Mean 95 87 86 Blood Pressure Mean [Right Arm] 02 Sat by Pulse Oximetry 100 99 100 Oxygen Delivery Method Oxygen Flow Rate (LPM) 08/19/24 12:00 Temperature Temperature Source Pulse Rate 73 Pulse Rate [Left Radial] Respiratory Rate 16 Blood Pressure 158/60 H Blood Pressure [Right Arm] Blood Pressure Mean 92 Blood Pressure Mean [Right Arm] 02 Sat by Pulse Oximetry 100 Oxygen Delivery Method Oxygen Flow Rate (LPM) Lab Data Labs: Lab Results 08/19/24 09:20: WBC 10.0, RBC 1.88 L*, Hgb 5.8 L*, Hct 18.7 L*, MCV 99.5 H, MCH 30.3, MCHC 30.5 L, RDW 18.4 H, Plt Count 290, MPV 10.8 H, Neut % (Auto) 77.3, Lymph % (Auto) 11.7, [place] % (Auto) 9.1, Eos % (Auto) 1.0, Baso % (Auto) 0.3, Neut # (Auto) 7.7, Lymph # (Auto) 1.2, [place] # (Auto) 0.9, Eos # (Auto) 0.1, Baso # (Auto) 0.0, PT 11.1, INR 0.99, APTT 22.9, Sodium 137, Potassium 5.7 H, Chloride 104, Carbon Dioxide 30, Anion Gap 8.7, BUN 70 H, Creatinine 2.60 H, Estimated Creat Clear 19, Estimated GFR 18 L*, Est GFR ( Amer) 21 L, Glucose 174 H, Calcium 9.4, Magnesium 2.0, Total Bilirubin 0.5, AST 55 H, ALT 42, Alkaline Phosphatase 83, Troponin I 0.02, NT-Pro-B Natriuret Pep 6650 H, Total Protein 6.0 L, Albumin 3.3 L, Globulin 2.7, Albumin/Globulin Ratio 1.2 08/19/24 09:30: VBG pH 7.36, VBG pCO2 51.3 H, VBG pO2 50.6 H, VBG HCO3 28.3, VBG Total CO2 29.9 H, VBG O2 Saturation 83.3 H, VBG Base Excess 2.9 H, VBG Lactic Acid 1.3 08/19/24 09:33: Blood Type O Positive, Crossmatch (AHG) See Detail 08/19/24 09:20 08/19/24 09:20 Response Orders (Tests/Meds): ED MEDICATIONS Generic Name Dose Route Start Last Admin Trade Name Freq PRN Reason Stop Dose Admin Sodium Chloride 250 mls @ 25 mls/hr 08/19/24 10:15 Sod Chlor 0.9% 250ml Bag IV 08/20/24 10:14 .Q10H [place] Discontinued Medications Generic Name Dose Route Start Last Admin Trade Name Freq PRN Reason Stop Dose Admin Furosemide 60 mg 08/19/24 12:08 08/19/24 12:13 Furosemide 40mg/4ml Vial IV 08/19/24 12:09 60 mg ONCE ONE Administration ORDERS Category Date Time Status Transfuse RBC's [Red Blood Cells] Stat [facility] 08/19/24 09:33 Results Type and Screen Stat [facility] 08/19/24 09:33 Results XR chest portable Stat Exams 08/19/24 09:22 Taken Complete Blood Count Auto Diff Stat Lab 08/19/24 09:20 Completed Comprehensive Metabolic Panel Stat Lab 08/19/24 09:20 Completed HIV Combo Stat Lab 08/19/24 09:20 Received Hep C Ab with Reflex to RNA Stat Lab 08/19/24 09:20 Received Magnesium Stat Lab 08/19/24 09:20 Completed NT Pro Brain Natriuretic Pep. Stat Lab 08/19/24 09:20 Completed PT INR [Prothrombin Time INR] Stat Lab 08/19/24 09:20 Completed PTT [Activated Partial Thrombo Time] Stat Lab 08/19/24 09:20 Completed Troponin I Q3H Lab 08/19/24 12:30 Ordered Troponin I Q3H Lab 08/19/24 15:30 Ordered Troponin I Stat Lab 08/19/24 09:20 Completed vWF Activity Stat Lab 08/19/24 09:22 Ordered Venous Blood Gas Stat RT 08/19/24 09:30 Completed MDM Narrative Medical Decision Narrative: This is an 84-year-old female with history of hypertension, hyperlipidemia, CKD, CAD, PR, diabetes, COPD on 3 L nasal cannula presenting with shortness of breath. Patient states that she has been losing blood slowly in her GI tract, but has not been able to figure out how. She received a blood transfusion a couple of weeks ago for hemoglobin less than 7. Patient states that she has been feeling short of breath with minimal exertion over the past few days. No vomiting, but stools are black. States that she is also on 50 to 60 feet of tubing at her nursing facility. No fevers, chills, chest pain, diaphoresis, syncope, or any other concerns. History was obtained via conversation with patient and EMS. On arrival, patient hemodynamically stable, alert, oriented x4, appropriate, GCS 15, moving all extremities spontaneously, pupils equal and reactive to light. Full physical exam performed and significant for 84-year-old female who is in no acute distress, but she is pale. Speaking in full sentences, lungs are clear. She does have loud right upper sternal border murmur that radiates throughout the precordium. No lower extremity edema. Normal S1-S2. Differential includes chronic GI bleed, AVM, malignancy, ACS, PR, acute versus chronic blood loss anemia, UTI, pneumonia, bronchitis, CHF, among others. Patient was given supplemental oxygen initially for symptomatic management and correction of underlying abnormalities. Patient placed on continuous cardiac monitoring and continuous pulse ox with initial blood pressure 158/55, heart rate for, saturation 96% on 3 L nasal cannula. Independent interpretation of EKG shows sinus rhythm with left bundle branch block and leftward leaning axis. OH 182, QRS 137, QTc 439. No acute ischemic change. Sgarbossa negative. Workup independently interpreted and significant for anemic with hemoglobin 5.8 hematocrit 18.7. Normal platelets and white count. Chemistry with FIDEL on CKD with BUN 70 and creatinine 2.6. Troponin negative, BNP elevated at 6600. Chest x-ray with pulmonary effusions and edema as well as cardiomegaly. See radiology read for full review of final results.On reevaluation, patient still resting comfortably. Given 60 mg IV Lasix prior to blood given CHF and chest x-ray findings consistent with fluid overload. 2 units blood ordered. Numerous hospitals were called, ultimately, patient was graciously excepted to [facility] under Dr. Sorenson. Given they have numerous discharges to do and unsure if she will even be transferred today, hospitalist here at [facility] consulted and case was discussed and interactive discussion had. Patient to be admitted here prior to transfer to [facility] given no bed availability in the emergency department and unknown wait time. Fabrication Lead disclaimer Much of this encounter note is an electronic range management specialist spoken language to printed text. Electronic range management specialist of the spoken language may permit errors. Although I have reviewed the note, some errors may still exist.
[2024-08-19 09:37] LABS: Lactate Venous 1.3 mmol/L (0.4-2.0); VBG Base Excess 2.9 mmol/L (-2.4-2.3); VBG HCO3 28.3 mmol/L (23-30); VBG Oxygen Saturation 83.3 % (50-70); VBG PH 7.36 mmol/L (7.31-7.41); VBG PO2 50.6 mmol/L (28-40); VBG Total CO2 29.9 mmol/L (23-27)
[2024-08-19 09:40] LABS: VBG PCO2 51.3 mmol/L (35-51)
[2024-08-19 09:44] LABS: Basophils % 0.3 % (0.1-2.0); Eosinophils # 0.1 K/mm3 (0.0-0.4); Lymphocytes # 1.2 K/mm3 (0.7-4.5); Lymphocytes % 11.7 % (10-50); Mean Corpuscular HGB Conc 30.5 g/dL (31.8-35.4); Mean Corpuscular Hemoglobin 30.3 pg (27.0-31.2); Mean Corpuscular Volume 99.5 fl (81-99); Mean Platelet Volume 10.8 fl (7.4-10.4); Monocytes # 0.9 K/mm3 (0.1-1.0); Monocytes % 9.1 % (1.7-9.3); Neutrophils # 7.7 K/mm3 (1.8-7.8); Neutrophils % 77.3 % (37.0-80.0); Platelet Count 290 K/mm3 (142-424); Red Blood Count 1.88 M/mm3 (4.20-5.40); Red Cell Distribution Width 18.4 % (11.5-17.5)
[2024-08-19 09:51] LABS: INR 0.99 (0.9-1.1); Prothrombin Time 11.1 seconds (10.1-12.5)
[2024-08-19 09:52] LABS: Hematocrit 18.7 % (37.0-47.0)
[2024-08-19 09:53] LABS: Albumin Level 3.3 g/dl (3.5-5.0); Chloride 104 mmol/L (98-107); Potassium 5.7 mmoL/L (3.5-5.1); Sodium 137 mmol/L (136-145)
[2024-08-19 09:54] LABS: Hemoglobin 5.8 g/dL (12.2-16.2)
[2024-08-19 09:55] LABS: Blood Urea Nitrogen 70 mg/dl (7-17); Creatinine Clearance Estimated 19 mL/min (50-200); Estimated Glomerular Filt Rate 18 ml/min (>60); GFR (African American) 21 ML/MIN (>60)
[2024-08-19 09:56] LABS: Alanine Aminotransferase 42 U/L (12-78); Albumin/Globulin Ratio 1.2 (1.1-1.8); Alkaline Phosphatase 83 U/L (38-126); Anion Gap 8.7 mEq/L (5-15); Aspartate Amino Transferase 55 U/L (14-36); Bilirubin,Total 0.5 mg/dl (0.2-1.3); Calcium 9.4 mg/dl (8.4-10.2); Carbon Dioxide 30 mmol/L (22.0-30.0); Globulin 2.7 g/dL (1.3-3.2); Glucose 174 mg/dl (74-100)
[2024-08-19 10:05] LABS: NT Pro Brain Natriuretic Pep. 6650 pg/mL (0-450)
[2024-08-19 10:08] LABS: Troponin I 0.02 ng/ml (0.00-0.034)
[2024-08-19 10:12] LABS: Activated Partial Thrombo Time 22.9 seconds (22.8-30.6)
--- NOTE | 2024-08-19 10:29 | PC.NURSE ---
dr griffith is speaking to dr alejandra at this time
--- NOTE | 2024-08-19 11:14 | PC.NURSE ---
dr griffith is speaking to at [facility] at this time
--- NOTE | 2024-08-19 12:09 | PC.NURSE ---
dr griffith is speaking to dr michele
[2024-08-19] MEDS: FUROSEMIDE 40MG/4ML VIAL 60 MG IV (12:13)
--- NOTE | 2024-08-19 12:17 | PC.NURSE ---
house aware of admission
--- NOTE | 2024-08-19 12:32 | PC.NURSE ---
REPORT CALLED TO CHARISSE SHEPPARD
[2024-08-19 12:49] LABS: HIV Combo NEGATIVE (Negative)
--- NOTE | 2024-08-19 13:36 | PC.NURSE ---
arrived by stretcher from ED
[2024-08-19 13:48] LABS: Troponin I 0.01 ng/ml (0.00-0.034)
--- NOTE | 2024-08-19 14:28 | P.HP_ITS ---
History of Present Illness *Admission Date: 08/19/24 *Reason for visit:: Short breath *History of present illness: Ms. Higgins is an 84-year-old female with significant history of hypertension, combined heart failure, CAD, CKD 4, PA, diabetes, COPD on 3 L nasal cannula, recurrent anemia. She has been residing at [facility] [place]. She been worked up extensively over the past year with stays at both [facility] and [facility] for her anemia and blood loss. Presented to the ER today due to worsening shortness of breath noted at [facility] by her nurse. Concerned that she may have worsening effusions. On arrival to the ER, patient is alert and oriented x 4. Hemodynamically stable (slight hypertension actually). Chest imaging concerning for effusions. Labs positive for significant anemia with hemoglobin of 5.8. Kidney function essentially at baseline with BUN of 70, cre atinine 2.6. Takes aspirin daily, not on any other blood thinners. Has previously had scopes and workup for anemia. ER initially plan to transfer patient to higher level of care given concern for her valvular stenoses (aortic and mitral) as a cause for her anemia along with her complex comorbidities and chronic renal failure. Was accepted to [facility]. Due to no bed, medicine consulted for admission and further management. Upon arrival to the floor, patient's son is at bedside and they both state that she does not want to transfer to [facility] under any circumstances. They request [facility] if she has to be transferred. [facility] was contacted and they do not have beds plus they have a very long wait list. Discussed patient's current condition, we will plan to transfuse and continue to monitor and reevaluate for need for transfer. Patient states she has been coming as an outpatient from [facility] for transfusions over the past few months. Most recently received 1 unit the beginning of May, and 2 units 3 weeks later the end of May. Son is unsure why the acute concern for needing to transfer. After digging through her chart and getting records from [facility], I agree with transfusing, diuresing, close monitoring and reevaluation. Of note, BNP 6600. Concerning for CHF component and volume overload. Received Lasix in the ER. Will give additional dose of Bumex between units of blood. Patient reports dark stools but takes iron supplement daily. No hematemesis. Denies any syncope. Just complains of weakness. [facility] Sats in the low to mid 90s on 3 L currently [facility] Disclaimer: The information contained in this section may have been updated after the patient was seen, as this information can be updated by other users. Medical History (Updated 08/19/24 @ 19:27 by Ivan Hammer MD) Hypothyroid Diabetes mellitus Anemia COPD (chronic obstructive pulmonary disease) Anxiety HLD (hyperlipidemia) CKD (chronic kidney disease) Heart failure Surgical History H/O tubal ligation H/O cataract removal with insertion of prosthetic lens H/O hand surgery History of appendectomy Social History Smoking Status: Former smoker alcohol intake: never current occupational status: retired Travel in the last 8 weeks: None Have you lived/traveled outside US in past 30 days?: No Contact w/someone who lives/traveled outside US past 30 days?: No Exposure to someone with infectious disease in past 14 days?: No Do you have a fever (greater than 100.4 F or 38 C)?: No Have you tested positive for COVID-19: No Exposed to someone with COVID-19 in past 14 days?: No Do you have a sore throat?: No Do you have a cough?: No Do you have any weakness?: No Are you experiencing any nausea/vomitting?: No Do you have any diarrhea?: No Are you experiencing any unusual bleeding?: No Do you have any muscle aches/pain?: No Do you have any abdominal pain?: No Are you experiencing loss of taste or smell?: No Other Medical History Have you received the Flu Vaccine for this season: Yes Have you received the Pneumonia Vaccine: Yes Review of Systems Review of Systems Review of systems (narrative): 14 point review of systems performed, pertinent positives and negatives as per HPI Meds Home Medications and Allergies Home Medications ?Medication ?Instructions ?Recorded ?Confirmed ?Type carvedilol 12.5 mg tablet 12.5 mg PO BID 07/28/22 08/19/24 History duloxetine 30 mg capsule,delayed 30 mg PO DAILY 07/28/22 08/19/24 History release levothyroxine 75 mcg tablet 75 mcg PO DAILY 07/28/22 08/19/24 History pantoprazole 40 mg tablet,delayed 40 mg PO DAILY 07/28/22 08/19/24 History release sodium bicarbonate 650 mg tablet 650 mg PO BID 07/28/22 08/19/24 History acetaminophen 650 mg tablet 650 mg PO Q4HP PRN Mild Pain 05/28/24 08/19/24 History (Scale Score 1-4) aspirin 81 mg tablet 81 mg PO DAILY 05/28/24 08/19/24 History atorvastatin 80 mg tablet 80 mg PO HS 05/28/24 08/19/24 History budesonide-formoterol HFA 160 2 puff inhalation BID 05/28/24 08/19/24 History mcg-4.5 mcg/actuation aerosol inhaler ferrous sulfate 325 mg (65 mg 325 mg PO DAILY 05/28/24 08/19/24 History iron) tablet,delayed release fluticasone propionate 50 1 spray intranasal DAILY 05/28/24 08/19/24 History mcg/actuation nasal spray,suspension hydralazine 25 mg tablet 25 mg PO TID 05/28/24 08/19/24 History insulin glargine U-300 conc 300 10 unit SQ HS 05/28/24 08/19/24 History unit/mL (1.5 mL) subcutaneous pen (Toujeo SoloStar U-300 Insulin) insulin lispro 100 unit/mL 5 unit SQ AC 05/28/24 08/19/24 History subcutaneous pen (Humalog KwikPen (U-100) Insulin) ipratropium 0.5 mg-albuterol 3 mg 3 ml inhalation Q4HP PRN Shortness 05/28/24 08/19/24 History (2.5 mg base)/3 mL nebulization Of Breath soln isosorbide mononitrate 60 mg 60 mg PO DAILY 05/28/24 08/19/24 History tablet,extended release 24 hr nitroglycerin 0.4 mg sublingual 0.4 mg sublingual Q5MINP PRN Chest 05/28/24 08/19/24 History tablet Pain sennosides 8.6 mg-docusate sodium 2 tab-cap PO BIDP PRN Constipation 05/28/24 08/19/24 History 50 mg capsule bumetanide 2 mg tablet 2 mg PO DAILY 08/19/24 08/19/24 History bumetanide 2 mg tablet 2 mg PO DAILYP PRN Edema 08/19/24 08/19/24 History loratadine 10 mg tablet 10 mg PO DAILY 08/19/24 08/19/24 History melatonin 5 mg tablet 5 mg PO HS 08/19/24 08/19/24 History New Prescriptions to Start Prescriptions: Allergies Allergy/AdvReac Type Severity Reaction Status Date / Time adhesive tape Allergy Unknown Verified 06/20/24 11:26 allergy reaction ciprofloxacin Allergy Unknown Verified 06/20/24 11:26 allergy reaction codeine Allergy Unknown Verified 06/20/24 11:26 allergy reaction doxycycline Allergy Unknown Verified 06/20/24 11:26 allergy reaction erythromycin base Allergy Unknown Verified 06/20/24 11:26 allergy reaction latex Allergy Unknown Verified 06/20/24 11:26 allergy reaction Penicillins Allergy Unknown Verified 06/20/24 11:26 allergy reaction Sulfa (Sulfonamide Allergy Unknown Verified 06/20/24 11:26 Antibiotics) allergy reaction Exam Data for Last 24 hours Vital signs and Labs for Last 24 Hours: Temp Pulse Resp BP Pulse Ox O2 Del Method O2 Flow Rate 98.0 F 78 14 174/105 H 97 Nasal Cannula 3 08/19/24 13:37 08/19/24 13:37 08/19/24 13:37 08/19/24 13:37 08/19/24 13:20 08/19/24 09:13 08/19/24 09:13 Laboratory Results - last 24 hr 08/19/24 09:20: WBC 10.0, RBC 1.88 L*, Hgb 5.8 L*, Hct 18.7 L*, MCV 99.5 H, MCH 30.3, MCHC 30.5 L, RDW 18.4 H, Plt Count 290, MPV 10.8 H, Neut % (Auto) 77.3, Lymph % (Auto) 11.7, [place] % (Auto) 9.1, Eos % (Auto) 1.0, Baso % (Auto) 0.3, Neut # (Auto) 7.7, Lymph # (Auto) 1.2, [place] # (Auto) 0.9, Eos # (Auto) 0.1, Baso # (Auto) 0.0, PT 11.1, INR 0.99, APTT 22.9, Sodium 137, Potassium 5.7 H, Chloride 104, Carbon Dioxide 30, Anion Gap 8.7, BUN 70 H, Creatinine 2.60 H, Estimated Creat Clear 19, Estimated GFR 18 L*, Est GFR ( Amer) 21 L, Glucose 174 H, Calcium 9.4, Magnesium 2.0, Total Bilirubin 0.5, AST 55 H, ALT 42, Alkaline Phosphatase 83, Troponin I 0.02, NT-Pro-B Natriuret Pep 6650 H, Total Protein 6.0 L, Albumin 3.3 L, Globulin 2.7, Albumin/Globulin Ratio 1.2, HIV Ag/Ab Combo Qual Negative 08/19/24 09:30: VBG pH 7.36, VBG pCO2 51.3 H, VBG pO2 50.6 H, VBG HCO3 28.3, VBG Total CO2 29.9 H, VBG O2 Saturation 83.3 H, VBG Base Excess 2.9 H, VBG Lactic Acid 1.3 08/19/24 09:33: Blood Type O Positive, Antibody Screen Negative, Crossmatch (AHG) See Detail 08/19/24 13:05: Troponin I 0.01 I & O for Last 24 hours: Intake & Output 08/16/24 08/17/24 08/18/24 08/19/24 23:59 23:59 23:59 23:59 Intake Total 0 / 0 Balance 0 / 0 Weight 75.892 kg Constitutional Constitutional: mild distress, average body habitus, chronically ill appearing and cooperative *Routine HEENT Exam Head: Present normocephalic Eye: Present EOMI and PERRL ENT: Present mucous membranes moist *Routine Neck Exam Neck: Present supple; Absent lymphadenopathy *Routine Respiratory Exam Respiratory: Present prolonged expiratory phase, crackles and diminished air movement; Absent rhonchi or wheezes *Routine Cardiovascular Exam Cardiovascular: Present RRR *Routine Abdominal Exam Abdominal: Present soft and normoactive bowel sounds; Absent tenderness *Routine Rectal Exam Rectal:: deferred *Routine Genitalia Exam Genitalia:: deferred *Routine Extremities Exam Extremities: Present edema (2+ to knees); Absent cyanosis or clubbing *Routine Skin Exam Skin: Present intact, pallor and warm; Absent rash *Routine Neurological Exam Neurological: Present alert, oriented X3 and moving all extremities; Absent altered mental status Assessment and Plan *Assessment and plan (1) Acute on chronic combined systolic and diastolic heart failure: Status: Acute Category: Medical Code(s): I50.43 - Acute on chronic combined systolic (congestive) and diastolic (congestive) heart failure (2) Symptomatic anemia: Status: Acute Category: Medical Code(s): D64.9 - Anemia, unspecified (3) Hyperkalemia: Status: Acute Category: Medical Code(s): E87.5 - Hyperkalemia (4) Chronic kidney disease, stage IV (severe): Status: Acute Category: Medical Code(s): N18.4 - Chronic kidney disease, stage 4 (severe) (5) Uremia: Status: Acute Category: Medical Code(s): N19 - Unspecified kidney failure (6) COPD (chronic obstructive pulmonary disease): Status: Acute Category: Medical Code(s): J44.9 - Chronic obstructive pulmonary disease, unspecified (7) Anxiety: Status: Acute Category: Medical Code(s): F41.9 - Anxiety disorder, unspecified (8) Diabetes mellitus: Status: Acute Category: Medical Code(s): E11.9 - Type 2 diabetes mellitus without complications (9) Hypothyroid: Status: Acute Category: Medical Code(s): E03.9 - Hypothyroidism, unspecified Plan 84-year-old female with complex comorbidities who presents with dyspnea. Found to be anemic and in CHF exacerbation. Discussed case with ER physician, request admission for monitoring while awaiting transfer. I agreed to admit. However after arriving to the floor, patient does not want to be transferred to selected institution. Will manage here for the time being and reevaluate need for transfer. Stable on 3 L. Prognosis guarded. Transfusion initiated. Problems addressed as follows: Acute on chronic combined heart failure Hypertension -Records obtained from [facility], per my review, patient has combined heart failure with reduced EF and diastolic dysfunction. Has valvular disorder with mild to moderate aortic stenosis and mitral valve stenosis. -BNP elevated at 6600. Will initiate Bumex 2 mg between units of blood this evening. Will give additional 2 mg IV dose tonight at midnight. Continue Bumex 2 mg IV twice daily -Monitor for negative fluid status -Continue home carvedilol 12.5 mg twice daily for hypertension and heart failure - Continue hydralazine 25 mg 3 times a day and isosorbide 60 mg daily for hypertension -We have no echo in our system, echo ordered to evaluate heart failure, EF, RVSP. Symptomatic anemia -Hemoglobin 5.8 on arrival, hematocrit 18.7. Repeat H&H ordered for after transfusion of 2 units. Repeat CBC, CMP, magnesium ordered for the morning. -Short of breath on presentation but appears compensated with hemoglobin 5.8. Goal hemoglobin greater than 7. Will transfuse 2 units and monitor for improvement. Conservative transfusion threshold due to patient's compensated state with severe anemia -No active signs of bleeding. Extensive workup in the past. Will hold on further workup at this time. Platelets normal at 290. Diabetes: Continue sliding scale insulin with basal insulin 10 units glargine tonight. Fingersticks ACHS Stable chronic conditions: Continue pantoprazole 40 mg daily for GERD Continue sodium bicarbonate 650 mg twice daily for metabolic acidosis/renal failure Continue docusate senna 2 caps twice daily as needed for constipation Continue levothyroxine 75 mcg daily for hypothyroid Continue Cymbalta 30 mg daily for mood Continue Lipitor 80 mg nightly for hyperlipidemia Holding aspirin in the setting of anemia Full code Regular diet Holding anticoagulation in the anemia
--- NOTE | 2024-08-19 14:34 | CA_ITS ---
APPROVED REPORT EXAM: Comprehensive 2D, Doppler, and color-flow Echocardiogram [employer] Operator: Linsey Watts CRT Ht: 5 ft 4 in Wt: 167lbs BSA: 1.81 BP: 147/58 mmHg Indications: anemia, murmur, pt getting 2 units of blood, COPD, SOB, HTN, DM, HLD 2D Dimensions LA Volume 72.90 mL LA Volume Index 39.20 mL/m2 (M/F) 16-34 M-Mode Dimensions RVDd 2.21 cm (0.9-2.6) LA Diam 3.99 cm (1.9-4.0) LVDd 4.24 cm (3.5-5.7) LVDs 3.55 cm (3.5-5.7) IVSd 1.38 cm (0.6-1.1) PWd 0.97 cm (0.6-1.1) EF (Teich) 34.60% FS 16.30% EDV (Teich) 80.40 mL TAPSE 2.50 (<1.7) ESV (Teich) 52.60 mL LV Diastology E Decel Time 183 (160-240 msec) E/A Ratio 0.91 MED A' 5.70 cm/s LAT A' 12.90 cm/s Aortic Valve ЮЛИЯ Index 1.26 cm2/m2 AoV Peak Armando. 209.0 (50-130 cm/s) AO Peak GR. 17.50 mmHg AO Mean GR. 11.00 (<5 mmHg) AO VTI 55.5 (18-25 cm) ЮЛИЯ (VTI) 2.34 (2.5-4.5 cm2) Mitral Valve MV E Max Armando. 165.0 (40-130 cm/s) MV A Velocity 182.0 (40-130 cm/s) E/A Ratio 0.91 MV Mean Gr. 9.70 (<2mmHg) MV PHT 54.0 ms Pulmonary Valve PV Peak Velocity 174.0 (50-150 cm/s) Tricuspid Valve TR P. Velocity 240.00 cm/s RAP Estimate 10.00 mmHg RVSP 33.10 mmHg Left Ventricle The left ventricle is normal size. The left ventricular systolic function is low normal. There is increased LV wall thickness. There is normal LV segmental wall motion. Diastolic function is indeterminate. LVEF is 50%. Right Ventricle The right ventricle is normal size. The right ventricular systolic function is normal. Atria Left atrium is moderately dilated. The right atrium is mildly dilated. There is no Doppler evidence of interatrial shunt. Aortic Valve The aortic valve is mildly thickened. Mild aortic stenosis is present. Peak velocity 2.1 m/s. Mean AV gradient 13 mmHg. Max AV gradient 25 mmHg. Trace aortic regurgitation. Mitral Valve Severe mitral annular calcification. The mitral valve leaflets are thickened. Moderate mitral stenosis. Mean MV gradient 9 mmHg (HR 68 bpm). Moderate mitral regurgitation. Tricuspid Valve Tricuspid valve is grossly normal in structure and function. Trace tricuspid regurgitation. There is insufficient TR jet to estimate RVSP. Pulmonic Valve The pulmonary valve is normal in structure. Mild pulmonic regurgitation. Great Vessels The aortic root is normal in size. IVC is normal in size and collapses >50% with inspiration. Pericardium Moderate-sized, circumferential pericardial effusion is present. The largest pocket measures 1.2 cm in diastole and is located posteriorly. There is slight invagination of the right ventricle in diastole, but no clear evidence of complete chamber collapse. No clear echo indications of tamponade. Other Information Study Quality: Fair Conclusion Low normal LV systolic function (LVEF 50%). Biatrial dilation. 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 Mild Moderate MR. Mild PI. Moderate-sized, circumferential pericardial effusion is present. The largest pocket measures 1.2 cm in diastole and is located posteriorly. There is slight invagination of the right ventricle in diastole, but no clear evidence of complete chamber collapse. No clear echo indications of tamponade. In the setting of pericardial effusion, further evaluation with serial limited TTE is recommended. Also, clinical correlation is recommended as tamponade is considered a clinical diagnosis. The above findings were relayed to the cardiology consult team at the time of image acquisition. Electronically signed by : Eladia Mar MD 08/19/2024 19:34:01
--- NOTE | 2024-08-19 15:11 | P.CONPHA_ITS ---
Pharmacy Intervention Comments: MEDICATION RECONCILIATION COMPLETED ON PATIENT USING MAR FROM ALF. -HARPAL LAZO, JOHND
--- NOTE | 2024-08-19 15:11 | HMH.PHAINT1 ---
Pharmacy Intervention Comments: MEDICATION RECONCILIATION COMPLETED ON PATIENT USING MAR FROM ASSISTED. -HARPAL LAZO, JOHND
--- NOTE | 2024-08-19 16:14 | PC.NURSE ---
tammy vieira and update on pt, bed still not available at this time
[2024-08-19 16:16] LABS: Troponin I < 0.01 ng/ml (0.00-0.034)
--- NOTE | 2024-08-19 16:26 | CARE MANAGER ---
Patient resides at [facility]. Able to return there once medically stable. Updates sent to [facility]. CHARISSE Miller
[2024-08-19] MEDS: BUMETANIDE 1MG/4ML VIAL 2 MG IV ×2 (16:36→22:57)
[2024-08-19] MEDS: 0.9 % SODIUM CHLORIDE 250 ML 25 ML IV (16:36)
[2024-08-19] MEDS: HYDRALAZINE 20MG/ML VIAL 5 MG IV (17:42)
[2024-08-19] MEDS: LORazepam 2MG/ML VIAL 1 MG IV (18:28)
--- NOTE | 2024-08-19 18:38 | PC.NURSE ---
pts b/p continues to be elevated, per son, this happens every time pt gets a blood transfusion. ryne has been called numerous times since pt has came to the floor for increased soa. pt resting since receiving iv ativan. v/s remain the same, o2 on 4l nc. some still at bs, cb within reach and when son leaves hes made aware to let staff know, bed alarm will be placed on pt since getting ativan.
[2024-08-19] MEDS: HYDRALAZINE 20MG/ML VIAL 10 MG IV (18:53)
[2024-08-19] MEDS: HYDRALAZINE HCL 25MG TABLET 25 MG PO (21:06)
[2024-08-19] MEDS: ATORVASTATIN 40MG TABLET 80 MG PO (21:06)
[2024-08-19] MEDS: MELATONIN 5MG TABLET 5 MG PO (21:07)
[2024-08-19] MEDS: CARVEDILOL 12.5MG TABLET 25 MG PO (21:07)
[2024-08-19 21:19] LABS: POC Glucose,Bedside 165 (70-110)
--- NOTE | 2024-08-19 22:46 | EXP.EVENT.NO ---
Per nursing nurse was not able to get a hold of the sodium bicarbonate, this is given for her chronic acidosis probably related to her kidney function, Also noted by nursing that the patient is not hungry not wanting to eat this was concerning a family member. Nursing reported no other problems patient is resting well with no acute pain or difficulty talking or breathing Exam: Patient is resting comfortably in bed her second unit of packed red cells are in awaiting for 2-hour follow-up. Plan added Tums tonight to help with any heartburn that might be related and since the sodium bicarb and not oral is not present., Have ordered a venous blood gas with her blood draw for 2 hours post last transfusion to recheck acidosis. Since patient is resting comfortably will address dietary needs in the daytime shift.
[2024-08-19 22:52] LABS: Hematocrit 25.5 % (37.0-47.0)
[2024-08-19 22:54] LABS: Lactate Venous 1.4 mmol/L (0.4-2.0); VBG Base Excess 2.2 mmol/L (-2.4-2.3); VBG Oxygen Saturation 99.1 % (50-70); VBG PH 7.41 mmol/L (7.31-7.41); VBG PO2 159.5 mmol/L (28-40); VBG Total CO2 28.3 mmol/L (23-27)
[2024-08-19] MEDS: CALCIUM CARBONATE 500MG CHEWTAB 500 MG PO (22:56)
[2024-08-19 23:00] LABS: Chloride 103 mmol/L (98-107); Potassium 5.1 mmoL/L (3.5-5.1); Sodium 136 mmol/L (136-145)
[2024-08-19 23:03] LABS: Anion Gap 8.1 mEq/L (5-15); Blood Urea Nitrogen 63 mg/dl (7-17); Carbon Dioxide 30 mmol/L (22.0-30.0); Creatinine Clearance Estimated 21 mL/min (50-200); Estimated Glomerular Filt Rate 18 ml/min (>60); GFR (African American) 22 ML/MIN (>60)
[2024-08-19 23:04] LABS: Calcium 9.2 mg/dl (8.4-10.2); Glucose 163 mg/dl (74-100)
[2024-08-19 23:50] LABS: Hemoglobin 8.1 g/dL (12.2-16.2)
[2024-08-20] VITALS (8 sets, daily range): BP systolic 143–210; BP diastolic 58–88; PULSE 70–80; RESP 16–18; TEMP 36.7–37.2; O2SAT 91–96; BMI 28.5
--- NOTE | 2024-08-20 04:54 | EXP.EVENT.NO ---
Problem: Nurse called to inform me that the patient's blood pressure systolic was 210. Patient was asleep calm as she had been sleeping most the night this was not an issue until she is after she has received her blood. exam: No signs of distress plan: Will give 1 dose of Tylenol and another p.o. extra dose of hydralazine which she receives 3 times daily.. She did get that at 9:00 last night we will try another dose. I note that the she has at times received small doses of IV but will try p.o. presently.. Unsure of cause of elevated blood pressure but might just be related to have to to be receiving 2 units of blood. H&H is greater than 8 and 21. Will check back with the nurse in approximately 1 hour after medication is given to see if her blood pressure has improved to a more acceptable level
[2024-08-20] MEDS: HYDRALAZINE HCL 25MG TABLET 25 MG PO (05:02)
[2024-08-20] MEDS: ACETAMINOPHEN 325MG TAB 650 MG PO (05:02)
--- NOTE | 2024-08-20 05:54 | PC.NURSE ---
Pt BP elevated 210/88, contacted [facility]. New orders for hydralazine 25 mg, tylenol 650 mg
[2024-08-20 06:06] LABS: POC Glucose,Bedside 131 (70-110)
[2024-08-20 07:08] LABS: HCV Ab Non Reactive (Non Reactive)
[2024-08-20 09:10] LABS: Albumin Level 2.9 g/dl (3.5-5.0); Basophils % 0.2 % (0.1-2.0); Chloride 104 mmol/L (98-107); Eosinophils # 0.1 K/mm3 (0.0-0.4); Eosinophils % 0.9 % (0.1-12.0); Hematocrit 25.8 % (37.0-47.0); Hemoglobin 8.1 g/dL (12.2-16.2); Lymphocytes # 0.9 K/mm3 (0.7-4.5); Lymphocytes % 9.4 % (10-50); Mean Corpuscular HGB Conc 31.4 g/dL (31.8-35.4); Mean Corpuscular Hemoglobin 29.3 pg (27.0-31.2); Mean Corpuscular Volume 93.5 fl (81-99); Mean Platelet Volume 10.8 fl (7.4-10.4); Monocytes # 1.2 K/mm3 (0.1-1.0); Neutrophils % 76.1 % (37.0-80.0); Platelet Count 262 K/mm3 (142-424); Red Blood Count 2.76 M/mm3 (4.20-5.40); Red Cell Distribution Width 19.1 % (11.5-17.5); Sodium 137 mmol/L (136-145); White Blood Count 9.2 K/mm3 (4.8-10.8)
[2024-08-20 09:11] LABS: Potassium 4.9 mmoL/L (3.5-5.1)
[2024-08-20 09:13] LABS: Alanine Aminotransferase 28 U/L (12-78); Albumin/Globulin Ratio 1.2 (1.1-1.8); Alkaline Phosphatase 81 U/L (38-126); Anion Gap 7.9 mEq/L (5-15); Aspartate Amino Transferase 25 U/L (14-36); Bilirubin,Total 0.6 mg/dl (0.2-1.3); Blood Urea Nitrogen 63 mg/dl (7-17); Carbon Dioxide 30 mmol/L (22.0-30.0); Creatinine Clearance Estimated 20 mL/min (50-200); Estimated Glomerular Filt Rate 18 ml/min (>60); GFR (African American) 21 ML/MIN (>60); Globulin 2.4 g/dL (1.3-3.2); Total Protein,Serum 5.3 g/dl (6.3-8.2)
[2024-08-20 09:14] LABS: Calcium 9.5 mg/dl (8.4-10.2); Glucose 113 mg/dl (74-100); Magnesium 1.9 mg/dl (1.6-2.3)
[2024-08-20] MEDS: DULOXETINE 30MG CAPSULE.DR 30 MG PO (09:32)
[2024-08-20] MEDS: SODIUM BICARBONATE 650MG TABLET 650 MG PO ×2 (09:32→20:47)
[2024-08-20] MEDS: ISOSORBIDE MONO 60MG TAB.ER.24H 60 MG PO (09:32)
[2024-08-20] MEDS: PANTOPRAZOLE 40MG TABLET 40 MG PO (09:32)
[2024-08-20] MEDS: NIFEdipine XL 30MG TABLET 60 MG PO (09:32)
[2024-08-20] MEDS: LEVOTHYROXINE 75MCG (0.075MG) TAB 75 MCG PO (09:33)
[2024-08-20] MEDS: CARVEDILOL 25MG TABLET 25 MG PO ×2 (09:33→20:47)
[2024-08-20] MEDS: BUMETANIDE 1MG/4ML VIAL 2 MG IV ×2 (09:33→16:00)
[2024-08-20] MEDS: humaLOG 100 UNITS/ML 10ML VIAL (SSI) SUBCUT ×2 (16:03→20:53)
[2024-08-20 17:07] LABS: POC Glucose,Bedside 193 (70-110)
[2024-08-20] MEDS: FLUTICASONE/SALMETEROL 250/50MCG DISKUS 1 PUFF IH (19:42)
--- NOTE | 2024-08-20 20:18 | P.PN_ITS ---
Subjective *Date: 08/20/24 *Time: 20:18 Interval history: Patient responded well to transfusion. Hemoglobin stable at 8.1. Stable on 3 L oxygen. Diuresing well, -1.2 L since admission. Still feels quite fatigued. Shortness of breath after eating. Blood pressure showing improved control. Denies chest pain, nausea, vomiting, diarrhea. Medical Exam Vital signs and Labs for Last 24 Hours: Vital Signs Temp Pulse Pulse Resp BP BP Pulse Ox 08/20/24 16:51 08/20/24 16:00 80 08/20/24 16:00 98.4 F 73 18 143/62 H 96 08/20/24 15:00 08/20/24 13:00 08/20/24 12:00 70 08/20/24 12:00 98.5 F 72 17 144/63 H 95 08/20/24 11:00 08/20/24 09:00 08/20/24 08:00 08/20/24 08:00 98.3 F 76 16 172/58 H 91 L 08/20/24 06:55 08/20/24 06:55 167/88 H 08/20/24 05:00 08/20/24 04:00 70 08/20/24 04:00 98.9 F 78 16 210/88 H 93 L 08/20/24 03:00 08/20/24 00:58 08/20/24 00:00 70 08/20/24 00:00 98.1 F 71 18 144/59 H 96 08/19/24 23:55 08/19/24 23:00 08/19/24 21:57 98.2 F 74 16 142/68 H 95 08/19/24 21:40 98.2 F 74 16 142/68 H 95 08/19/24 21:00 08/19/24 20:40 97.8 F 81 16 180/80 H 94 L O2 Del Method O2 Flow Rate 08/20/24 16:51 Nasal Cannula 4 08/20/24 16:00 08/20/24 16:00 Nasal Cannula 4 08/20/24 15:00 Nasal Cannula 4 08/20/24 13:00 Nasal Cannula 4 08/20/24 12:00 08/20/24 12:00 Nasal Cannula 4 08/20/24 11:00 Nasal Cannula 4 08/20/24 09:00 Nasal Cannula 4 08/20/24 08:00 Nasal Cannula 4 08/20/24 08:00 Nasal Cannula 3 08/20/24 06:55 Nasal Cannula 3 08/20/24 06:55 08/20/24 05:00 Nasal Cannula 3 08/20/24 04:00 08/20/24 04:00 Nasal Cannula 3 08/20/24 03:00 Nasal Cannula 3 08/20/24 00:58 Nasal Cannula 4 08/20/24 00:00 08/20/24 00:00 Nasal Cannula 4 08/19/24 23:55 Nasal Cannula 4 08/19/24 23:00 Nasal Cannula 4 08/19/24 21:57 Nasal Cannula 4 08/19/24 21:40 08/19/24 21:00 Nasal Cannula 4 08/19/24 20:40 Intake and Output 08/20/24 08/20/24 08/20/24 07:59 15:59 23:59 Intake Total 240 / 480 240 / 480 Output Total 1100 / 2400 1300 / 2400 Balance -1100 / -1920 -1060 / -1920 240 / -1920 Intake: Intake, Oral Amount 240 / 480 240 / 480 Output: Output, Urine Amount 1100 / 2400 1300 / 2400 Other: Number of Unmeasured Voids 0 0 Weight 75.892 kg Patient Weight 08/20/24 23:59 Weight 75.892 kg Laboratory Results - last 24 hr 08/19/24 09:20: Hepatitis C Antibody Non reactive 08/19/24 09:33: Crossmatch (AHG) See Detail 08/19/24 21:04: POC Glucose 165 H 08/19/24 22:40: VBG pH 7.41, VBG pCO2 44.0, VBG pO2 159.5 H, VBG HCO3 27.0, VBG Total CO2 28.3 H, VBG O2 Saturation 99.1 H, VBG Base Excess 2.2, VBG Lactic Acid 1.4 08/19/24 22:44: Hgb 8.1 L D, Hct 25.5 L, Sodium 136, Potassium 5.1, Chloride 103, Carbon Dioxide 30, Anion Gap 8.1, BUN 63 H, Creatinine 2.50 H, Estimated Creat Clear 21, Estimated GFR 18 L*, Est GFR ( Amer) 22 L, Glucose 163 H, Calcium 9.2 08/20/24 05:08: POC Glucose 131 H 08/20/24 07:14: WBC 9.2, RBC 2.76 L D, Hgb 8.1 L, Hct 25.8 L, MCV 93.5, MCH 29.3, MCHC 31.4 L, RDW 19.1 H, Plt Count 262, MPV 10.8 H, Neut % (Auto) 76.1, Lymph % (Auto) 9.4 L, [place] % (Auto) 13.0 H, Eos % (Auto) 0.9, Baso % (Auto) 0.2, Neut # (Auto) 7.0, Lymph # (Auto) 0.9, [place] # (Auto) 1.2 H, Eos # (Auto) 0.1, Baso # (Auto) 0.0, Sodium 137, Potassium 4.9, Chloride 104, Carbon Dioxide 30, Anion Gap 7.9, BUN 63 H, Creatinine 2.60 H, Estimated Creat Clear 20, Estimated GFR 18 L*, Est GFR ( Amer) 21 L, Glucose 113 H D, Calcium 9.5, Magnesium 1.9, Total Bilirubin 0.6, AST 25 D, ALT 28 D, Alkaline Phosphatase 81, Total Protein 5.3 L, Albumin 2.9 L D, Globulin 2.4, Albumin/Globulin Ratio 1.2, Anti- ds DNA Titer ([facility]) TNP 08/20/24 15:59: POC Glucose 193 H I & O for Labs for Last 24 Hours: Intake & Output 08/17/24 08/18/24 08/19/24 08/20/24 23:59 23:59 23:59 23:59 Intake Total 370 / 370 480 / 480 Output Total 550 / 550 2400 / 2400 Balance -180 / -180 -1920 / -1920 Weight 75.892 kg 75.892 kg Constitutional: Present no acute distress, average body habitus, chronically ill appearing and cooperative Head: Present atraumatic and normocephalic ENT: Present normal exam Respiratory: Present crackles (Dependent portions of lung) and normal respiratory effort; Absent rhonchi or wheezes Cardiac: Present Reg Rate and Rhythm and Systolic Murmur GI: Present soft and normal bowel sounds; Absent distention or tenderness Extremities: Present normal inspection and full ROM; Absent edema Skin: Present intact; Absent erythema Neuro: Present Grossly Intact, alert, awake, oriented x 3 and moves all extremities Assessment and Plan *Assessment and plan (1) Acute on chronic combined systolic and diastolic heart failure: Status: Acute Category: Medical Code(s): I50.43 - Acute on chronic combined systolic (congestive) and diastolic (congestive) heart failure (2) Symptomatic anemia: Status: Acute Category: Medical Code(s): D64.9 - Anemia, unspecified (3) Hyperkalemia: Status: Acute Category: Medical Code(s): E87.5 - Hyperkalemia (4) Chronic kidney disease, stage IV (severe): Status: Acute Category: Medical Code(s): N18.4 - Chronic kidney disease, stage 4 (severe) (5) Uremia: Status: Acute Category: Medical Code(s): N19 - Unspecified kidney failure (6) COPD (chronic obstructive pulmonary disease): Status: Acute Category: Medical Code(s): J44.9 - Chronic obstructive pulmonary disease, unspecified (7) Anxiety: Status: Acute Category: Medical Code(s): F41.9 - Anxiety disorder, unspecified (8) Diabetes mellitus: Status: Acute Category: Medical Code(s): E11.9 - Type 2 diabetes mellitus without complications (9) Hypothyroid: Status: Acute Category: Medical Code(s): E03.9 - Hypothyroidism, unspecified (10) Chronic pericardial effusion: Status: Acute Category: Medical Code(s): I31.39 - Other pericardial effusion (noninflammatory) Plan 84-year-old female with complex comorbidities who presents with dyspnea. Found to be anemic and in CHF exacerbation. Discussed case with ER physician, request admission for monitoring while awaiting transfer. I agreed to admit. However after arriving to the floor, patient does not want to be transferred to selected institution. Will manage here for the time being and reevaluate need for transfer. Stable on 3 L. Prognosis guarded. Responded well to transfusion. No active signs of bleeding. Hemoglobin stable. Will continue to diurese and address blood pressure. Continues to necessitate inpatient management. Problems addressed as follows: Acute on chronic combined heart failure Hypertension -Records obtained from [facility], per my review, patient has combined heart failure with reduced EF and diastolic dysfunction. Has valvular disorder with mild to moderate aortic stenosis and mitral valve stenosis. -BNP elevated at 6600. Continue Bumex 2 mg IV twice daily. -1.5 L so far. - Continue home carvedilol 12.5 mg twice daily for hypertension and heart failure -Discontinue hydralazine, initiate nifedipine 60 mg extended release daily. Continue isosorbide 60 mg daily for hypertension -Echocardiogram showing mild AAS and MR, pericardial effusion, preserved EF of 50%, diastolic dysfunction. Chronic pericardial effusion -Echocardiogram obtained showing circumferential effusion. 1.2 cm at largest pocket on posterior portion of heart in diastole. No clear signs of tamponade. Hemodynamically stable. Patient states she has had it drained previously while at [facility] several months ago. This is a known condition that is chronic for her. Will hold on intervention at this time given her hemodynamic stability. Concerned it may be related to her heart failure or medication induced from hydralazine. Discontinue hydralazine. Lupus panel ordered to evaluate for drug induced lupus Symptomatic anemia -Hemoglobin 5.8 on arrival, hematocrit 18.7. Responded well to transfusion. Hemoglobin 8.1 last night and this morning. Hematocrit improved to 25. Appears stable with no active bleeding. Platelets 262. Repeat CBC, CMP, magnesium ordered for the morning. -Stable shortness of breath if not slightly improved. Still on 3 L which is her baseline. - Goal hemoglobin greater than 7. Conservative transfusion threshold due to patient's compensated state with severe anemia - Extensive workup in the past. Will hold on further workup at this time. Diabetes: Continue sliding scale insulin with basal insulin 10 units glargine tonight. Fingersticks ACHS Stable chronic conditions: Continue pantoprazole 40 mg daily for GERD Continue sodium bicarbonate 650 mg twice daily for metabolic acidosis/renal failure Continue docusate senna 2 caps twice daily as needed for constipation Continue levothyroxine 75 mcg daily for hypothyroid Continue Cymbalta 30 mg daily for mood Continue Lipitor 80 mg nightly for hyperlipidemia Holding aspirin in the setting of anemia Full code Regular diet Holding anticoagulation in the anemia
[2024-08-20] MEDS: TRAZODONE 50MG TABLET 25 MG PO (20:46)
[2024-08-20] MEDS: ATORVASTATIN 40MG TABLET 80 MG PO (20:47)
[2024-08-20] MEDS: INSULIN GLARGINE 100 UNITS/ML 10ML VIAL 10 UNIT SUBCUT (20:59)
[2024-08-20] MEDS: IPRATROPIUM/ALBUTEROL 3 ML NEB IH (21:12)
[2024-08-20] MEDS: LORazepam 0.5MG TABLET 0.25 MG PO (22:35)
[2024-08-20 23:08] LABS: POC Glucose,Bedside 153 (70-110)
[2024-08-21] VITALS: BP 128/52; PULSE 66; RESP 14; TEMP 36.9; O2SAT 97
[2024-08-21 04:00] VITALS: BP 140/49; PULSE 70; RESP 16; TEMP 36.7; O2SAT 95; BMI 28.5
[2024-08-21] MEDS: FLUTICASONE/SALMETEROL 250/50MCG DISKUS 1 PUFF IH (05:54)
[2024-08-21 05:55] VITALS: O2SAT 94
[2024-08-21 06:34] LABS: POC Glucose,Bedside 89 (70-110)
--- NOTE | 2024-08-21 07:48 | EXP.DC.SUM ---
General Admission date:: 08/19/24 Discharge date: 08/21/24 HPI HPI HPI: Ms. Higgins is an 84-year-old female with significant history of hypertension, combined heart failure, CAD, CKD 4, GA, diabetes, COPD on 3 L nasal cannula, recurrent anemia. She has [place] residing [place] [facility] [place] She been worked up extensively over the past year with stays at both [facility] and [facility] for her anemia and blood loss. Presented to the ER today due to worsening shortness of breath noted at [facility] by her nurse. Concerned that she may have worsening effusions. On arrival to the ER, patient is alert and oriented x 4. Hemodynamically stable (slight hypertension actually). Chest imaging concerning for effusions. Labs positive for significant anemia with hemoglobin of 5.8. Kidney function essentially at baseline with BUN of 70, creatinine 2.6. Takes aspirin daily, not on any other blood thinners. Has previously had scopes and workup for anemia. ER initially plan to transfer patient to higher level of care given concern for her valvular stenoses (aortic and mitral) as a cause for her anemia along with her complex comorbidities and chronic renal failure. Was accepted to [facility]. Due to no bed, medicine consulted for admission and further management. Upon arrival to the floor, patient's son is at bedside and they both state that she does not want to transfer to [facility] under any circumstances. They request [facility] if she has to be transferred. [facility] was contacted and they do not have beds plus they have a very long wait list. Discussed patient's current condition, we will plan to transfuse and continue to monitor and reevaluate for need for transfer. Patient states she has been coming as an outpatient from [facility] for transfusions over the past few months. Most recently received 1 unit the beginning of May, and 2 units 3 weeks later the end of May. Son is unsure why the acute concern for needing to transfer. After digging through her chart and getting records from [facility], I agree with transfusing, diuresing, close monitoring and reevaluation. Of note, BNP 6600. Concerning for CHF component and volume overload. Received Lasix in the ER. Will give additional dose of Bumex between units of blood. Patient reports dark stools but takes iron supplement daily. No hematemesis. Denies any syncope. Just complains of weakness. Normally on 3 L oxygen at the shelter. Sats in the low to mid 90s on 3 L currently Hospital Course Hospital Course Hospital Course: 84-year-old female with complex comorbidities who presents with dyspnea. Found to be anemic and in CHF exacerbation. Discussed case with ER physician, request admission for monitoring while awaiting transfer. I agreed to admit. However after arriving to the floor, patient does not want to be transferred to selected institution. Will manage here for the time being and reevaluate need for transfer. Has been stable on baseline oxygen. Patient was transfused and responded well. No active signs of bleeding. Hemoglobin has remained stable. Adjustments were made to her heart failure regimen and diuretic regimen to improve volume status and blood pressure control. Has responded well. Stable to discharge back to [facility]. Needs repeat CMP, magnesium, CBC in 4 days to monitor kidney function, electrolytes, hemoglobin. Recommend monthly hemoglobin and hematocrit given her chronic anemia and need for transfusions to make decisions monthly for outpatient transfusion if necessary. Stable to discharge. Problems addressed as follows: Acute on chronic combined heart failure Hypertension -Records obtained from [facility], per my review, patient has combined heart failure with reduced EF and diastolic dysfunction. Has valvular disorder with mild to moderate aortic stenosis and mitral valve stenosis. BNP elevated at 6600. Initiated on Bumex 2 mg IV twice daily. -2-1/2 L during admission. Breathing somewhat better. Will continue 2 mg p.o. twice daily. Reevaluate dosing pending kidney function. Repeat labs in 4 days as above. In regard to her hypertension, continue carvedilol increased at 25 mg twice daily. Hydralazine was discontinued due to patient's pericardial effusion and concern for drug-induced side effects. Initiated nifedipine extended release 60 mg daily with good response. Continue isosorbide 60 mg nightly for hypertension. Echocardiogram obtained at our facility showing mild and MR, pericardial effusion (suspected chronic from patient's description), preserved EF of 50%, diastolic dysfunction. Patient would benefit from serial echo to monitor pericardial effusion. No tamponade at this time. Will have patient follow-up in 1 to 2 weeks with cardiology as outpatient and consider echo at that time to monitor effusion. Chronic pericardial effusion -Echocardiogram obtained showing circumferential effusion. 1.2 cm at largest pocket on posterior portion of heart in diastole. No clear signs of tamponade. Hemodynamically stable. Patient states she has had it drained previously while at [facility] several months ago. This is a known condition that is chronic for her. Will hold on intervention at this time given her hemodynamic stability. Concerned it may be related to her heart failure or medication induced from hydralazine. Discontinue hydralazine. Lupus panel ordered to evaluate for drug induced lupus Symptomatic anemia Iron deficiency -Hemoglobin 5.8 on arrival, hematocrit 18.7. Responded appropriately to transfusion. Hemoglobin stable at 8.1 today 0.3 after transfusion. No active signs of bleeding. Platelets have remained normal in the mid 260-270 range. Goal hemoglobin greater than 7. Monitor monthly for need for possible transfusions. Patient also noted to have low iron studies. Administered 200 mg IV Venofer on day of discharge. Continue oral iron at discharge. Peripheral smear pending - Iron level of 33, TIBC of 260, iron saturation of 12%. Ferritin 55. Diabetes: Stable during admission. Continue home regimen. Stable chronic conditions: Continue pantoprazole 40 mg daily for GERD Continue sodium bicarbonate 650 mg twice daily for metabolic acidosis/renal failure Continue docusate senna 2 caps twice daily as needed for constipation Continue levothyroxine 75 mcg daily for hypothyroid Continue Cymbalta 30 mg daily for mood Continue Lipitor 80 mg nightly for hyperlipidemia Holding aspirin in the setting of anemia Total time spent on discharge 36 minutes in counseling, documentation, chart review, and direct care with patient. Exam Data for Last 24 hours Vital signs and Labs for Last 24 Hours: Temp Pulse Resp BP Pulse Ox O2 Del Method O2 Flow Rate 98.1 F 70 16 140/49 L 94 L Nasal Cannula 4 08/21/24 04:00 08/21/24 04:00 08/21/24 04:00 08/21/24 04:00 08/21/24 05:55 08/21/24 06:57 08/21/24 06:57 Laboratory Results - last 24 hr 08/20/24 07:14: WBC 9.2, RBC 2.76 L D, Hgb 8.1 L, Hct 25.8 L, MCV 93.5, MCH 29.3, MCHC 31.4 L, RDW 19.1 H, Plt Count 262, MPV 10.8 H, Neut % (Auto) 76.1, Lymph % (Auto) 9.4 L, [place] % (Auto) 13.0 H, Eos % (Auto) 0.9, Baso % (Auto) 0.2, Neut # (Auto) 7.0, Lymph # (Auto) 0.9, [place] # (Auto) 1.2 H, Eos # (Auto) 0.1, Baso # (Auto) 0.0, Sodium 137, Potassium 4.9, Chloride 104, Carbon Dioxide 30, Anion Gap 7.9, BUN 63 H, Creatinine 2.60 H, Estimated Creat Clear 20, Estimated GFR 18 L*, Est GFR ( Amer) 21 L, Glucose 113 H D, Calcium 9.5, Magnesium 1.9, Total Bilirubin 0.6, AST 25 D, ALT 28 D, Alkaline Phosphatase 81, Total Protein 5.3 L, Albumin 2.9 L D, Globulin 2.4, Albumin/Globulin Ratio 1.2, Anti-ds DNA Titer (Crith) TNP 08/20/24 15:59: POC Glucose 193 H 08/20/24 20:50: POC Glucose 153 H 08/21/24 06:26: POC Glucose 89 I & O for Last 24 hours: Intake & Output 08/18/24 08/19/24 08/20/24 08/21/24 23:59 23:59 23:59 23:59 Intake Total 370 / 370 480 / 600 120 / 120 Output Total 550 / 550 3000 / 3000 Balance -180 / -180 -2520 / -2400 120 / 120 Weight 75.892 kg 75.892 kg 75.892 kg Constitutional Constitutional: no acute distress, chronically ill appearing and cooperative *Routine HEENT Exam Head: Present normocephalic Eye: Present EOMI and PERRL ENT: Present mucous membranes moist *Routine Neck Exam Neck: Present supple; Absent lymphadenopathy *Routine Respiratory Exam Respiratory: Present crackles (in posterior lung muller); Absent accessory muscle use, respiratory distress, rhonchi or wheezes *Routine Cardiovascular Exam Cardiovascular: Present RRR and murmur *Routine Abdominal Exam Abdominal: Present soft and normoactive bowel sounds; Absent tenderness *Routine Extremities Exam Extremities: Absent cyanosis, clubbing or edema *Routine Skin Exam Skin: Present warm; Absent rash *Routine Neurological Exam Neurological: Present alert, oriented X3 and moving all extremities; Absent altered mental status Results Data Completed and Pending Labs on day of discharge: Labs from last 24 hours 08/21/24 08/20/24 08/20/24 06:26 20:50 15:59 WBC RBC Hgb Hct MCV MCH MCHC RDW Plt Count MPV Neut % (Auto) Lymph % (Auto) [place] % (Auto) Eos % (Auto) Baso % (Auto) Neut # (Auto) Lymph # (Auto) [place] # (Auto) Eos # (Auto) Baso # (Auto) Sodium Potassium Chloride Carbon Dioxide Anion Gap BUN Creatinine Estimated Creat Clear Estimated GFR Est GFR ( Amer) Glucose POC Glucose 89 153 H 193 H Calcium Magnesium Total Bilirubin AST ALT Alkaline Phosphatase Total Protein Albumin Globulin Albumin/Globulin Ratio Anti-ds DNA Titer (Crith) 08/20/24 07:14 WBC 9.2 RBC 2.76 L D Hgb 8.1 L Hct 25.8 L MCV 93.5 MCH 29.3 MCHC 31.4 L RDW 19.1 H Plt Count 262 MPV 10.8 H Neut % (Auto) 76.1 Lymph % (Auto) 9.4 L Socorro % (Auto) 13.0 H Eos % (Auto) 0.9 Baso % (Auto) 0.2 Neut # (Auto) 7.0 Lymph # (Auto) 0.9 [place] # (Auto) 1.2 H Eos # (Auto) 0.1 Baso # (Auto) 0.0 Sodium 137 Potassium 4.9 Chloride 104 Carbon Dioxide 30 Anion Gap 7.9 BUN 63 H Creatinine 2.60 H Estimated Creat Clear 20 Estimated GFR 18 L* Est GFR ( Amer) 21 L Glucose 113 H D POC Glucose Calcium 9.5 Magnesium 1.9 Total Bilirubin 0.6 AST 25 D ALT 28 D Alkaline Phosphatase 81 Total Protein 5.3 L Albumin 2.9 L D Globulin 2.4 Albumin/Globulin Ratio 1.2 Anti-ds DNA Titer (Crith) TNP DS: Diagnosis Discharge Diagnosis (1) Acute on chronic combined systolic and diastolic heart failure: Status: Acute Code(s): I50.43 - Acute on chronic combined systolic (congestive) and diastolic (congestive) heart failure (2) Symptomatic anemia: Status: Acute Code(s): D64.9 - Anemia, unspecified (3) Hyperkalemia: Status: Acute Code(s): E87.5 - Hyperkalemia (4) Chronic kidney disease, stage IV (severe): Status: Acute Code(s): N18.4 - Chronic kidney disease, stage 4 (severe) (5) Uremia: Status: Acute Code(s): N19 - Unspecified kidney failure (6) COPD (chronic obstructive pulmonary disease): Status: Acute Code(s): J44.9 - Chronic obstructive pulmonary disease, unspecified (7) Anxiety: Status: Acute Code(s): F41.9 - Anxiety disorder, unspecified (8) Diabetes mellitus: Status: Acute Code(s): E11.9 - Type 2 diabetes mellitus without complications (9) Hypothyroid: Status: Acute Code(s): E03.9 - Hypothyroidism, unspecified (10) Chronic pericardial effusion: Status: Acute Code(s): I31.39 - Other pericardial effusion (noninflammatory) Meds Home Medications and Allergies Home Medications ?Medication ?Instructions ?Recorded ?Confirmed ?Type duloxetine 30 mg capsule,delayed 30 mg PO DAILY 07/28/22 08/19/24 History release levothyroxine 75 mcg tablet 75 mcg PO DAILY 07/28/22 08/19/24 History pantoprazole 40 mg tablet,delayed 40 mg PO DAILY 07/28/22 08/19/24 History release sodium bicarbonate 650 mg tablet 650 mg PO BID 07/28/22 08/19/24 History acetaminophen 650 mg tablet 650 mg PO Q4HP PRN Mild Pain 05/28/24 08/19/24 History (Scale Score 1-4) atorvastatin 80 mg tablet 80 mg PO HS 05/28/24 08/19/24 History budesonide-formoterol HFA 160 2 puff inhalation BID 05/28/24 08/19/24 History mcg-4.5 mcg/actuation aerosol inhaler ferrous sulfate 325 mg (65 mg 325 mg PO DAILY 05/28/24 08/19/24 History iron) tablet,delayed release fluticasone propionate 50 1 spray intranasal DAILY 05/28/24 08/19/24 History mcg/actuation nasal spray,suspension insulin glargine U-300 conc 300 10 unit SQ HS 05/28/24 08/19/24 History unit/mL (1.5 mL) subcutaneous pen (Toujeo SoloStar U-300 Insulin) insulin lispro 100 unit/mL 5 unit SQ AC 05/28/24 08/19/24 History subcutaneous pen (Humalog KwikPen (U-100) Insulin) ipratropium 0.5 mg-albuterol 3 mg 3 ml inhalation Q4HP PRN Shortness 05/28/24 08/19/24 History (2.5 mg base)/3 mL nebulization Of Breath soln nitroglycerin 0.4 mg sublingual 0.4 mg sublingual Q5MINP PRN Chest 05/28/24 08/19/24 History tablet Pain sennosides 8.6 mg-docusate sodium 2 tab-cap PO BIDP PRN Constipation 05/28/24 08/19/24 History 50 mg capsule loratadine 10 mg tablet 10 mg PO DAILY 08/19/24 08/19/24 History melatonin 5 mg tablet 5 mg PO HS 08/19/24 08/19/24 History bumetanide 2 mg tablet 2 mg PO BIDL 30 days #60 tabs 08/21/24 Rx carvedilol 25 mg tablet 25 mg PO BID 30 days #60 tabs 08/21/24 Rx isosorbide mononitrate 60 mg 60 mg PO HS 30 days #0 tabs 08/21/24 08/19/24 Rx tablet,extended release 24 hr nifedipine 30 mg tablet,extended 60 mg (2 x 30 mg) PO DAILY 30 days 08/21/24 Rx release 24 hr #60 tabs New Prescriptions to Start Prescriptions: jezmetanide Ivan Hammer carvedilol Harman,Ivan nifedipine Harman,Ivan Allergies Allergy/AdvReac Type Severity Reaction Status Date / Time adhesive tape Allergy Unknown Verified 06/20/24 11:26 allergy reaction ciprofloxacin Allergy Unknown Verified 06/20/24 11:26 allergy reaction codeine Allergy Unknown Verified 06/20/24 11:26 allergy reaction doxycycline Allergy Unknown Verified 06/20/24 11:26 allergy reaction erythromycin base Allergy Unknown Verified 06/20/24 11:26 allergy reaction latex Allergy Unknown Verified 06/20/24 11:26 allergy reaction Penicillins Allergy Unknown Verified 06/20/24 11:26 allergy reaction Sulfa (Sulfonamide Allergy Unknown Verified 06/20/24 11:26 Antibiotics) allergy reaction Discharge Plan Disposition Patient Disposition: er [facility] Care Fac Condition: Fair Discharge Order Discharge Orders: Discharge Order (Routine); Ordered 08/21/24 Ordered By: Ivan Hammer Follow up Plan Follow up with: Provider,Referral, MD [Primary Care Provider] - Enter time for follow up Jonas Mar MD [Staff Physician] - Enter time for follow up (pericardial effusion, monitoring) Prescriptions/Medication Reconciliation: New nifedipine 30 mg Tablet Extended Release 24hr 60 mg PO DAILY 30 Days Qty: 60 0RF carvedilol 25 mg Tablet 25 mg PO BID 30 Days Qty: 60 0RF Continued levothyroxine 75 mcg tablet 75 mcg PO DAILY sodium bicarbonate 650 mg tablet 650 mg PO BID pantoprazole 40 mg tablet,delayed release (DR/EC) 40 mg PO DAILY Patient Comments: TAKE 1 TABLET BY MOUTH EVERY DAY duloxetine 30 mg capsule,delayed release(DR/EC) 30 mg PO DAILY atorvastatin 80 mg Tablet 80 mg PO HS ipratropium-albuterol 0.5 mg-3 mg(2.5 mg base)/3 mL Solution For Nebulization 3 ml INHALATION Q4HP PRN (Reason: Shortness Of Breath) acetaminophen 650 mg Tablet 650 mg PO Q4HP PRN (Reason: Mild Pain (Scale Score 1-4)) nitroglycerin 0.4 mg Tablet, Sublingual 0.4 mg SUBLINGUAL Q5MINP PRN (Reason: Chest Pain) Rx Instructions: do not exceed 3 doses per episode ferrous sulfate 325 mg (65 mg iron) Tablet,Delayed Release (Dr/Ec) 325 mg PO DAILY fluticasone propionate 50 mcg/actuation [place],Suspension 1 spray INTRANASAL DAILY Rx Instructions: administer into each nostril insulin lispro [Humalog KwikPen Insulin] 100 unit/mL Insulin Pen 5 unit SQ AC budesonide-formoterol 160-4.5 mcg/actuation Hfa Aerosol Inhaler 2 puff INHALATION BID insulin glargine U-300 conc [Toujeo SoloStar U-300 Insulin] 300 unit/mL (1.5 mL) Insulin Pen 10 unit SQ HS sennosides-docusate sodium 8.6-50 mg Capsule 2 tab-cap PO BIDP PRN (Reason: Constipation) loratadine 10 mg Tablet 10 mg PO DAILY melatonin 5 mg Tablet 5 mg PO HS Changed bumetanide 2 mg tablet 2 mg PO BIDL 30 Days Qty: 60 0RF isosorbide mononitrate 60 mg Tablet Extended Release 24 Hr 60 mg PO HS 30 Days Qty: 0 0RF Discontinued carvedilol 12.5 mg tablet 12.5 mg PO BID Patient Comments: TAKE 1 TABLET BY MOUTH TWICE A DAY WITH MORNING AND EVENING MEAL hydralazine 25 mg Tablet 25 mg PO TID aspirin 81 mg Tablet 81 mg PO DAILY bumetanide 2 mg tablet 2 mg PO DAILYP PRN (Reason: Edema) Rx Instructions: IF 5 POUND WEIGHT GAIN OVER DRY WEIGHT Problem Reconciliation Problems Reviewed?: Yes Patient Discharge Instructions ACTIVITY: Continue current activity DIET: continue same diet Patient Instructions: Anemia, DI for Heart Failure Print Language: Lao Providers Primary Care Provider: Provider,Referral Admit Provider: Ivan Hammer Attending Provider: Ivan Hammer
[2024-08-21 07:49] LABS: Basophils % 0.3 % (0.1-2.0); Eosinophils # 0.1 K/mm3 (0.0-0.4); Eosinophils % 1.3 % (0.1-12.0); Hematocrit 26.3 % (37.0-47.0); Hemoglobin 8.3 g/dL (12.2-16.2); Lymphocytes # 1.4 K/mm3 (0.7-4.5); Lymphocytes % 17.1 % (10-50); Mean Corpuscular HGB Conc 31.6 g/dL (31.8-35.4); Mean Corpuscular Hemoglobin 30.1 pg (27.0-31.2); Mean Corpuscular Volume 95.3 fl (81-99); Mean Platelet Volume 10.2 fl (7.4-10.4); Monocytes % 12.8 % (1.7-9.3); Neutrophils # 5.4 K/mm3 (1.8-7.8); Neutrophils % 68.1 % (37.0-80.0); Platelet Count 271 K/mm3 (142-424); Red Blood Count 2.76 M/mm3 (4.20-5.40); Red Cell Distribution Width 18.6 % (11.5-17.5); White Blood Count 7.9 K/mm3 (4.8-10.8)
[2024-08-21 07:58] LABS: Albumin Level 2.9 g/dl (3.5-5.0); Chloride 105 mmol/L (98-107)
[2024-08-21 07:59] LABS: Potassium 4.7 mmoL/L (3.5-5.1); Sodium 138 mmol/L (136-145)
[2024-08-21 08:00] VITALS: BP 152/57; PULSE 74; RESP 20; TEMP 36.8; O2SAT 94
[2024-08-21 08:01] LABS: Alanine Aminotransferase 22 U/L (12-78); Anion Gap 6.7 mEq/L (5-15); Aspartate Amino Transferase 21 U/L (14-36); Blood Urea Nitrogen 62 mg/dl (7-17); Carbon Dioxide 31 mmol/L (22.0-30.0); Creatinine Clearance Estimated 21 mL/min (50-200); Estimated Glomerular Filt Rate 18 ml/min (>60); GFR (African American) 22 ML/MIN (>60)
[2024-08-21 08:02] LABS: Albumin/Globulin Ratio 1.2 (1.1-1.8); Alkaline Phosphatase 79 U/L (38-126); Bilirubin,Total 0.5 mg/dl (0.2-1.3); Calcium 9.1 mg/dl (8.4-10.2); Globulin 2.4 g/dL (1.3-3.2); Glucose 78 mg/dl (74-100); Magnesium 1.9 mg/dl (1.6-2.3); Total Protein,Serum 5.3 g/dl (6.3-8.2)
[2024-08-21] MEDS: SODIUM BICARBONATE 650MG TABLET 650 MG PO (08:07)
[2024-08-21] MEDS: NIFEdipine XL 30MG TABLET 60 MG PO (08:07)
[2024-08-21] MEDS: LEVOTHYROXINE 75MCG (0.075MG) TAB 75 MCG PO (08:08)
[2024-08-21] MEDS: DULOXETINE 30MG CAPSULE.DR 30 MG PO (08:08)
[2024-08-21] MEDS: BUMETANIDE 1MG/4ML VIAL 2 MG IV (08:09)
[2024-08-21] MEDS: CARVEDILOL 25MG TABLET 25 MG PO (08:09)
[2024-08-21] MEDS: PANTOPRAZOLE 40MG TABLET 40 MG PO (08:10)
[2024-08-21 09:56] LABS: Iron 33 ug/dL (37-170)
[2024-08-21 10:05] LABS: Total Iron Binding Capacity 260 ug/dL (265-497)
[2024-08-21 10:32] LABS: Ferritin 55.4 ng/ml (11.1-264)
[2024-08-21] MEDS: IRON SUCROSE COMPLEX 200 MG in 0.9 % SODIUM CHLORIDE 100 ML 220 MG IV (11:13)
[2024-08-21] MEDS: IPRATROPIUM/ALBUTEROL 3 ML NEB IH (12:29)
[2024-08-21 17:16] LABS: POC Glucose,Bedside 145 (70-110)
[2024-08-22 12:09] LABS: Anti-DNA (DS) Ab Qn 13 IU/mL (0-9); Antichromatin Antibodies <0.2 AI (0.0-0.9); RA Latex Turbid. <10.0 IU/mL (<14.0); RNP Antibodies <0.2 AI (0.0-0.9); Sjogren's Anti-SS-A <0.2 AI (0.0-0.9); Sjogren's Anti-SS-B <0.2 AI (0.0-0.9)
[2024-08-23 08:12] LABS: dsDNA AB Crithidia Negative (Negative)
[2024-08-23 10:55] LABS: Peripheral Smear Review Scanned Result
[2024-08-23 11:09] LABS: vWF Activity 94 % (50-200)
== END 2024-08-21 15:05 ==
LOC: ER 12:20 → 2ND 13:04
PROVIDERS: Nurse Practitioner Family; Admitting Provider Internal Medicine Adolescent Medicine; Emergency Provider Emergency Medicine; Visit Provider Internal Medicine Adolescent Medicine
DX: I50.43 Acute on chronic combined systolic (congestive) and diastolic (congestive) heart failure (principal); K21.9 Gastro-esophageal reflux disease without esophagitis; J44.9 Chronic obstructive pulmonary disease, unspecified; N18.4 Chronic kidney disease, stage 4 (severe); D50.9 Iron deficiency anemia, unspecified; I31.39 Other pericardial effusion (noninflammatory); E03.9 Hypothyroidism, unspecified; E78.5 Hyperlipidemia, unspecified; Z99.81 Dependence on supplemental oxygen; Z87.891 Personal history of nicotine dependence; Z79.51 Long term (current) use of inhaled steroids; Z79.01 Long term (current) use of anticoagulants; Z79.890 Hormone replacement therapy; Z79.4 Long term (current) use of insulin; Z79.899 Other long term (current) drug therapy
CPT/HCPCS: 36415; 71045; 80048; 80053; 82728; 82803; 82962; 83540; 83550; 83735; 83880; 84484; 85014; 85018; 85025; 85245; 85610; 85730; 86225; 86235; 86431; 86803; 86850; 87389; 93005; 93306; 94640; 94761; 99291; G0378; J0360; J1756; J1939; J1940; J2060; J7620; P9016

== ENCOUNTER 2024-11-30 07:12 | Emergency (ER) | payer MEDICARE, SELFPAY ==
[2024-11-30] VITALS (16 sets, daily range): BP systolic 130–196; BP diastolic 38–66; PULSE 61–67; RESP 12–20; TEMP 36.8; O2SAT 94–98; BMI 24.6
--- NOTE | 2024-11-30 07:15 | ECG_ITS ---
APPROVED REPORT Exam: Resting ECG HR:64 bpm ECG Measurements Heart Rate 64 AXES WY 223 P 47 QRSd 146 QRS 71 QT 439 T -40 QTc 449 Conclusion SINUS RHYTHM WITH FIRST DEGREE AV BLOCK LEFT BUNDLE BRANCH BLOCK [120+ ms QRS DURATION, 80+ ms Q/S IN V1/V2, 85+ ms R IN I/aVL/V5/V6] Electronically signed by : BETH COLE, 11/30/2024 12:53:48
--- NOTE | 2024-11-30 07:20 | XR_ITS ---
FINAL REPORT CLINICAL HISTORY: chest pain COMPARISON: 08/19/2024 FINDINGS: Small left pleural effusion has improved. There is minimal left basilar atelectasis. Pulmonary vascular congestion is noted. Mediastinum is unremarkable. Heart size is enlarged but stable. IMPRESSION: Mild CHF. Significantly improved left pleural effusion. Reviewed, Interpreted and Dictated by Sherron Harvey MD Transcribed by Mckenna Francis Authenticated and . [facility]
--- NOTE | 2024-11-30 07:27 | ED_ITS ---
Discharge Plan Disposition Patient Disposition: Home, Self-Care Condition: Good Prescriptions Prescriptions: New polyethylene glycol 3350 [Miralax] 17 gram/dose powder 17 g PO DAILY Qty: 510 0RF sennosides [Senna Lax] 8.6 mg tablet 8.6 mg PO DAILY Qty: 30 0RF No Action levothyroxine 75 mcg tablet 75 mcg PO DAILY pantoprazole 40 mg tablet,delayed release (DR/EC) 40 mg PO DAILY Patient Comments: TAKE 1 TABLET BY MOUTH EVERY DAY duloxetine 30 mg capsule,delayed release(DR/EC) 30 mg PO DAILY atorvastatin 80 mg Tablet 80 mg PO HS ipratropium-albuterol 0.5 mg-3 mg(2.5 mg base)/3 mL Solution For Nebulization 3 ml INHALATION Q4HP PRN (Reason: Shortness Of Breath) acetaminophen 650 mg Tablet 650 mg PO Q4HP PRN (Reason: Mild Pain (Scale Score 1-4)) nitroglycerin 0.4 mg Tablet, Sublingual 0.4 mg SUBLINGUAL Q5MINP PRN (Reason: Chest Pain) Rx Instructions: do not exceed 3 doses per episode ferrous sulfate 325 mg (65 mg iron) Tablet,Delayed Release (Dr/Ec) 325 mg PO DAILY fluticasone propionate 50 mcg/actuation [place],Suspension 1 spray INTRANASAL DAILY Rx Instructions: administer into each nostril insulin lispro [Humalog KwikPen Insulin] 100 unit/mL Insulin Pen 3 unit SQ AC budesonide-formoterol 160-4.5 mcg/actuation Hfa Aerosol Inhaler 2 puff INHALATION BID insulin glargine U-300 conc [Toujeo SoloStar U-300 Insulin] 300 unit/mL (1.5 mL) Insulin Pen 5 unit SQ HS sennosides-docusate sodium 8.6-50 mg Capsule 2 tab-cap PO BIDP PRN (Reason: Constipation) loratadine 10 mg Tablet 10 mg PO DAILY melatonin 5 mg Tablet 5 mg PO HS isosorbide mononitrate 60 mg Tablet Extended Release 24 Hr 60 mg PO HS 30 Days Qty: 0 0RF carvedilol 12.5 mg tablet 12.5 mg PO BID aspirin 81 mg tablet,delayed release (DR/EC) 81 mg PO DAILY bumetanide 1 mg tablet 1 mg PO DAILY trazodone 50 mg tablet 25 mg PO HS hydralazine 50 mg tablet 50 mg PO Q8HP PRN (Reason: htn) insulin lispro 100 unit/mL solution See Protocol SQ ACHS Protocol: Insulin Corrective Low-Dose Regimen Condition: Fingerstick Blood Glucose Dose/Route: Insulin Units Condition: 151-200 mg/dl Dose/Route: 2 unit/SQ Condition: 201-250 mg/dl Dose/Route: 3 units/SQ Condition: 251-300 mg/dl Dose/Route: 4 units/SQ Condition: 301-350 mg/dl Dose/Route: 5 units/SQ Condition: 351-400 mg/dl Dose/Route: 6 units/SQ Condition: 401-450 mg/dl Dose/Route: 7 units/SQ Condition: > 450 mg/dl Dose/Route: CALL MD Protocol Text: Low Intensity Sliding Scale Insulin ondansetron 4 mg tablet,disintegrating 4 mg translingual Q8HP PRN (Reason: Nausea And Vomiting) Referrals Follow up/Referrals: Provider,Referral, MD [Referring] - See instructions Activity Restrictions/Add. Instructions Additional Instructions/Restrictions: You were evaluated in the emergency department today. I recommend very close follow-up on an outpatient basis with both cardiology and nephrology. Your care in the ED was discussed with Dr. Hollingsworth with [facility]. Please recheck labs, including potassium, over the next 48 hours. Monitor blood pressure at the SNF at least twice daily. Use the prescriptions provided to you for chronic constipation. Follow-up closely with primary care as well. Return to the emergency department for new or worsening symptoms. Clinical Impressions Clinical Impression: Chest pain, HBP (high blood pressure), CKD (chronic kidney disease), Chronic hyperkalemia, Constipation, Chronic anemia Print Language Print Language: Kazakh Discharge ED Provider: Ankita Garcia General Adult HPI General Chief complaint: Chest Pain Stated complaint: Chest Pain Time Seen by Provider: 11/30/24 07:15 History of Present Illness HPI narrative: This patient is an 84-year-old female with a history of COPD, type 2 diabetes, CKD, CHF, CAD, left bundle branch block, CKD, hypertension, hyperlipidemia, and hypothyroidism presenting to the emergency department for evaluation with concern for chest pain. Patient states that midsternal chest pain radiating down her left arm woke her up from sleep. She describes it as an ache. It is constant, not nitro seem to help make it better. Nothing seems to make it worse. No fevers, but she does note chronic cough and shortness of breath related to COPD. She denies any abdominal pain, nausea, vomiting, or other concerns. Related Data Home Medications ?Medication ?Instructions ?Recorded ?Confirmed duloxetine 30 mg capsule,delayed 30 mg PO DAILY 07/28/22 11/30/24 release levothyroxine 75 mcg tablet 75 mcg PO DAILY 07/28/22 11/30/24 pantoprazole 40 mg tablet,delayed 40 mg PO DAILY 07/28/22 11/30/24 release acetaminophen 650 mg tablet 650 mg PO Q4HP PRN Mild Pain 05/28/24 11/30/24 (Scale Score 1-4) atorvastatin 80 mg tablet 80 mg PO HS 05/28/24 11/30/24 budesonide-formoterol HFA 160 2 puff inhalation BID 05/28/24 11/30/24 mcg-4.5 mcg/actuation aerosol inhaler ferrous sulfate 325 mg (65 mg 325 mg PO DAILY 05/28/24 11/30/24 iron) tablet,delayed release fluticasone propionate 50 1 spray intranasal DAILY 05/28/24 11/30/24 mcg/actuation nasal spray,suspension insulin glargine U-300 conc 300 5 unit SQ HS 05/28/24 11/30/24 unit/mL (1.5 mL) subcutaneous pen (Toujeo SoloStar U-300 Insulin) insulin lispro 100 unit/mL 3 unit SQ AC 05/28/24 11/30/24 subcutaneous pen (Humalog KwikPen (U-100) Insulin) ipratropium 0.5 mg-albuterol 3 mg 3 ml inhalation Q4HP PRN Shortness 05/28/24 11/30/24 (2.5 mg base)/3 mL nebulization Of Breath soln nitroglycerin 0.4 mg sublingual 0.4 mg sublingual Q5MINP PRN Chest 05/28/24 11/30/24 tablet Pain sennosides 8.6 mg-docusate sodium 2 tab-cap PO BIDP PRN Constipation 05/28/24 11/30/24 50 mg capsule loratadine 10 mg tablet 10 mg PO DAILY 08/19/24 11/30/24 melatonin 5 mg tablet 5 mg PO HS 08/19/24 11/30/24 aspirin 81 mg tablet,delayed 81 mg PO DAILY 11/30/24 11/30/24 release bumetanide 1 mg tablet 1 mg PO DAILY 11/30/24 11/30/24 carvedilol 12.5 mg tablet 12.5 mg PO BID 11/30/24 11/30/24 hydralazine 50 mg tablet 50 mg PO Q8HP PRN htn 11/30/24 11/30/24 insulin lispro 100 unit/mL See Protocol SQ ACHS 11/30/24 11/30/24 subcutaneous solution ondansetron 4 mg disintegrating 4 mg translingual Q8HP PRN Nausea 11/30/24 11/30/24 tablet And Vomiting trazodone 50 mg tablet 25 mg PO HS 11/30/24 11/30/24 Previous Rx's ?Medication ?Instructions ?Recorded isosorbide mononitrate 60 mg 60 mg PO HS 30 days #0 tabs 08/21/24 tablet,extended release 24 hr polyethylene glycol 3350 17 17 g PO DAILY #510 grams 11/30/24 gram/dose oral powder (Miralax) sennosides 8.6 mg tablet (Senna 8.6 mg PO DAILY #30 tabs 11/30/24 Lax) Allergies Allergy/AdvReac Type Severity Reaction Status Date / Time adhesive tape Allergy Unknown Verified 06/20/24 11:26 allergy reaction ciprofloxacin Allergy Unknown Verified 06/20/24 11:26 allergy reaction codeine Allergy Unknown Verified 06/20/24 11:26 allergy reaction doxycycline Allergy Unknown Verified 06/20/24 11:26 allergy reaction erythromycin base Allergy Unknown Verified 06/20/24 11:26 allergy reaction latex Allergy Unknown Verified 06/20/24 11:26 allergy reaction Penicillins Allergy Unknown Verified 06/20/24 11:26 allergy reaction Sulfa (Sulfonamide Allergy Unknown Verified 06/20/24 11:26 Antibiotics) allergy reaction PFSH PFSH Disclaimer: The information contained in this section may have been updated after the patient was seen, as this information can be updated by other users. Medical History Hypothyroid Diabetes mellitus Anemia COPD (chronic obstructive pulmonary disease) Anxiety HLD (hyperlipidemia) CKD (chronic kidney disease) Heart failure Surgical History H/O tubal ligation H/O cataract removal with insertion of prosthetic lens H/O hand surgery History of appendectomy Social History Smoking Status: Never smoker alcohol intake: never current occupational status: retired Travel in the last 8 weeks: None Have you lived/traveled outside [place] in past 30 days?: No Contact w/someone who lives/traveled outside US past 30 days?: No Exposure to someone with infectious disease in past 14 days?: No Do you have a fever (greater than 100.4 F or 38 C)?: No Have you tested positive for COVID-19: No Exposed to someone with COVID-19 in past 14 days?: No Do you have a sore throat?: No Do you have a cough?: No Do you have any weakness?: No Do you have any diarrhea?: No Are you experiencing any unusual bleeding?: No Do you have any muscle aches/pain?: No Do you have any abdominal pain?: No Are you experiencing loss of taste or smell?: No Other Medical History Have you received the Flu Vaccine for this season: No Have you received the Pneumonia Vaccine: No ROS Obtained: Yes All systems reviewed & no additional complaints except as documented Physical Exam General General appearance: alert and in no apparent distress Head Head exam: atraumatic and normocephalic Eye Eye exam: Present normal appearance, PERRL and EOMI ENT ENT exam: Present normal exam, normal oropharynx, mucous membranes moist and normal external ear exam Neck Neck exam: Present normal inspection, full ROM and trachea midline; Absent tenderness Chest Chest inspection: Present normal inspection and symmetric chest wall rise; Absent tenderness Respiratory Respiratory exam: Present normal lung sounds bilaterally; Absent respiratory distress, wheezes, stridor or accessory muscle use Cardiovascular Cardiovascular exam: Present regular rate and normal rhythm Abdominal Exam Abdominal exam: Present soft; Absent distention, tenderness or guarding Extremities Exam Extremities exam: Present normal inspection, full ROM and normal capillary refill; Absent tenderness or edema Back Exam Back exam: Present normal inspection and full ROM; Absent tenderness Neurological Exam Neurological exam: Present alert, oriented X3 and CN II-XII intact; Absent motor sensory deficit Psychiatric Psychiatric exam: Present normal affect and normal mood Skin Skin exam: Present warm and dry Medical Decision Making Medical Records Medical records reviewed: Yes I reviewed the patient's medical records. Screening: Per USPSTF and CDC recommendations, given the prevalence of disease in our region, it is our hospital?s policy to screen for HIV and viral Hepatitis for all patients aged 18 and over and those with ongoing risk factors. John Inquiry Pt receiving controlled substance: No Vital Signs: 11/30/24 07:18 11/30/24 07:31 11/30/24 07:32 Temperature 98.2 F Temperature Source Oral Pulse Rate 65 66 Pulse Rate [Left] 64 Respiratory Rate 13 12 12 Blood Pressure 167/60 H 130/43 L Blood Pressure [Left Arm] 130/43 L Blood Pressure Mean 111 Blood Pressure Mean [Left Arm] 72 Blood Pressure Source [Left Arm] Automatic Cuff Blood Pressure Position [Left Arm] Supine 02 Sat by Pulse Oximetry 97 98 94 L Oxygen Delivery Method Room Air 11/30/24 07:51 11/30/24 08:01 11/30/24 08:30 Temperature Temperature Source Pulse Rate 64 66 61 Pulse Rate [Left] Respiratory Rate 12 12 Blood Pressure 180/64 H 193/66 H Blood Pressure [Left Arm] Blood Pressure Mean Blood Pressure Mean [Left Arm] Blood Pressure Source [Left Arm] Blood Pressure Position [Left Arm] 02 Sat by Pulse Oximetry 95 96 Oxygen Delivery Method 11/30/24 09:00 11/30/24 09:15 11/30/24 09:31 Temperature Temperature Source Pulse Rate 62 65 66 Pulse Rate [Left] Respiratory Rate 15 12 12 Blood Pressure 168/61 H 196/61 H Blood Pressure [Left Arm] Blood Pressure Mean Blood Pressure Mean [Left Arm] Blood Pressure Source [Left Arm] Blood Pressure Position [Left Arm] 02 Sat by Pulse Oximetry 95 95 97 Oxygen Delivery Method Room Air Room Air 11/30/24 09:45 11/30/24 10:00 11/30/24 10:30 Temperature Temperature Source Pulse Rate 63 64 64 Pulse Rate [Left] Respiratory Rate 13 12 13 Blood Pressure 156/53 H 147/46 H 147/38 H Blood Pressure [Left Arm] Blood Pressure Mean Blood Pressure Mean [Left Arm] Blood Pressure Source [Left Arm] Blood Pressure Position [Left Arm] 02 Sat by Pulse Oximetry 95 96 95 Oxygen Delivery Method Room Air Room Air 11/30/24 10:45 11/30/24 11:00 11/30/24 11:15 Temperature Temperature Source Pulse Rate 67 65 67 Pulse Rate [Left] Respiratory Rate 13 13 14 Blood Pressure 150/39 H 159/57 H Blood Pressure [Left Arm] Blood Pressure Mean Blood Pressure Mean [Left Arm] Blood Pressure Source [Left Arm] Blood Pressure Position [Left Arm] 02 Sat by Pulse Oximetry 95 97 95 Oxygen Delivery Method Room Air Room Air Room Air 11/30/24 12:09 Temperature 98.2 F Temperature Source Pulse Rate 65 Pulse Rate [Left] Respiratory Rate 20 Blood Pressure 168/62 H Blood Pressure [Left Arm] Blood Pressure Mean Blood Pressure Mean [Left Arm] Blood Pressure Source [Left Arm] Blood Pressure Position [Left Arm] 02 Sat by Pulse Oximetry Oxygen Delivery Method Room Air Lab Data Lab results reviewed: Yes I reviewed the patient's lab results. Lab Results 11/30/24 07:18: WBC 6.4, RBC 2.29 L, Hgb 7.1 L, Hct 22.6 L, MCV 98.7, MCH 31.0, MCHC 31.4 L, RDW 15.1, Plt Count 271, MPV 10.0, Neut % (Auto) 64.5, Lymph % (Auto) 15.7, [place] % (Auto) 16.6 H, Eos % (Auto) 2.6, Baso % (Auto) 0.3, Neut # (Auto) 4.1, Lymph # (Auto) 1.0, [place] # (Auto) 1.1 H, Eos # (Auto) 0.2, Baso # (Auto) 0.0, D-Dimer 0.83 H, Sodium 138, Potassium 5.3 H, Chloride 113 H, Carbon Dioxide 18 L, Anion Gap 12.3, BUN 70 H, Creatinine 2.60 H, Estimated Creat Clear 18, Estimated GFR 18 L*, Est GFR ( Amer) 21 L, Glucose 79, Calcium 9.3, Total Bilirubin 0.4, AST 21, ALT 21, Alkaline Phosphatase 80, Troponin I < 0.01, NT-Pro-B Natriuret Pep 4120 H, Total Protein 5.4 L, Albumin 2.7 L, Globulin 2.7, Albumin/Globulin Ratio 1.0 L, Lipase 131, TSH 1.30, Thyroxine (T4) 8.8 11/30/24 10:38: Troponin I < 0.01 11/30/24 07:18 11/30/24 07:18 Orders (Tests/Meds): ED MEDICATIONS Discontinued Medications Generic Name Dose Route Start Last Admin Trade Name Joeq PRN Reason Stop Dose Admin Acetaminophen 1,000 mg 11/30/24 07:21 11/30/24 09:17 Acetaminophen 1,000mg/100ml Vial IV 11/30/24 07:22 1,000 mg ONCE ONE Administration Aspirin 324 mg 11/30/24 07:20 11/30/24 08:21 Aspirin 81mg Chewable Tablet PO 11/30/24 07:21 324 mg ONCE ONE Administration Bumetanide 1 mg 11/30/24 09:03 11/30/24 09:17 Bumetanide 1mg/4ml Vial IV 11/30/24 09:04 1 mg ONCE ONE Administration Hydralazine HCl 50 mg 11/30/24 09:00 11/30/24 09:17 Hydralazine Hcl 25mg Tablet PO 11/30/24 09:01 50 mg ONCE ONE Administration Isosorbide Mononitrate 60 mg 11/30/24 09:01 11/30/24 09:18 Isosorbide [place] 60mg Tab.Er.24h PO 11/30/24 09:02 60 mg ONCE ONE Administration ORDERS Category Date Time Status CXR --portable [XR chest portable] Stat Exams 11/30/24 07:20 Completed POCUS Point of Care (ER Only) Stat Exams 11/30/24 07:29 Completed BNP [NT Pro Brain Natriuretic Pep.] Stat Lab 11/30/24 07:18 Completed Complete Blood Count Auto Diff Stat Lab 11/30/24 07:18 Completed Comprehensive Metabolic Panel Stat Lab 11/30/24 07:18 Completed D-Dimer Stat Lab 11/30/24 07:18 Completed Lipase Stat Lab 11/30/24 07:18 Completed T4 (Thyroxine) Stat Lab 11/30/24 07:18 Completed TSH [Thyroid Stimulating Hormone] Stat Lab 11/30/24 07:18 Completed Trop I [Troponin I] Stat Lab 11/30/24 07:18 Completed Troponin I Q3H Lab 11/30/24 10:38 Completed Troponin I Q3H Lab 11/30/24 13:30 Ordered ECG Data Tracing #1: I reviewed this ECG and interpreted as documented below: Sinus rhythm with a Persky AV block with [place] interval of 223 ms. Left bundle branch block. No STEMI. ECG initial impression date: 11/30/24 ECG initial impression time: 07:21 HEART Score History (anamnesis): Moderately suspicious ECG: Non-specific disturbance Age: >65 years Risk factors: Atherosclerosis history Troponin: </= normal limit HEART Score: 6 Medical Decision Narrative: In summary, this patient is a 84-year-old female presenting to the Emergency Department for evaluation of chest pain. Differential diagnoses considered include but are not limited to ACS, dysrhythmia, GERD, worsening pericardial effusion, pericarditis, myocarditis, PE, costochondritis. Ruling out the most morbid conditions drove assessment. It should be noted patient's history includes hypertension, hyperlipidemia, hypothyroidism, CAD, COPD, type 2 diabetes which may or may not be at goal therapy. This complicates all aspects of care by increasing patient's risk for morbidity. I reviewed patient's past medical records and noted prior echocardiogram for July showing moderate pericardial effusion without evidence of tamponade. History obtained from patient, SNF staff, and EMS. Patient had nitroglycerine at SNF plus additional nitroglycerine from EMS with improvement in her pain from 9 to 7. On exam, the patient is lying in bed in no acute distress. Cardiopulmonary exam is reassuring with no adventitious lung or heart sounds noted. No increased work of breathing. Vitals are normal cardiac telemetry. EKG obtained demonstrates left bundle branch block, which is chronic, but no acute STEMI. Cannot use PERC arteria to exclude PE given age. Workup included CBC, CMP, D- dimer, troponin, lipase, chest x-ray, EKG. Patient was given oral aspirin and IV acetaminophen.. I performed bedside cardiac ultrasound which demonstrated moderate pericardial effusion that does not appear significantly changed from prior, no evidence of tamponade. I independently interpreted x-ray prior to the radiologist read and noted stable chronic disease with improved pleural effusions. Please see their read for final interpretation. Labs were obtained that demonstrated CBC that shows chronic anemia with a hemoglobin of 7.1. She has required transfusion in the past. D-dimer is negative per years criteria 0.83. Potassium is slightly elevated at 5.3, improved from her prior outpatient labs obtained a reviewed. Then it was 5.6. Creatinine and BUN are elevated in the setting of CKD 4, but again improved from prior labs obtained by outpatient nephrology. BNP is elevated, but improved from prior. Previously she was in the 6000 range, today she is in the 4000's.. On reassessment, patient had gradual increase of her blood pressure to now systolics 190s over 60s as of 9 AM. I reviewed her nursing facility records and noted that it was like they have just decreased her Bumex from 2 mg to 1 mg daily. It also looks like she did not get her hydralazine that supposed to be given every 8 hours. She did get her isosorbide mononitrate yesterday, but does not look like she has gotten it today either. I ordered her home doses to treat her HTN. She did have a good improvement in her symptoms after blood pressure control with her home medications. Blood pressure was improved on cardiac telemetry on multiple subsequent reassessments with a blood pressure of 147/40. Patient follows with nephrology and cardiology at [facility]. I did obtain prior nephrology records with the evaluation 11/21/2024 for her CKD. Potassium at that time was 5.6, creatinine 2.8. Labs are slightly improved from this evaluation. I had an interactive discussion with cardiology at [facility] as well where the patient follows, Dr. Hollingsworth. I explained to him the patient's results, including negative initial troponin, negative D-dimer per years criteria, echo that shows stable chronic effusion, x-ray that shows improved pleural effusions, EKG that shows chronic left bundle. He advised that he feels the patient is appropriate for discharge home with close follow-up on an outpatient basis if her second troponin is negative. Second troponin resulted and was negative, so it was felt the patient was appropriate for discharge home with close follow-up on an outpatient basis. Instructions were given for monitoring of labs outpatient as well as monitoring of blood pressure. I gave instructions for close follow-up with cardiology and nephrology as well. I prescribed MiraLAX and senna at patient's request for issues with chronic constipation, though she notes good bowel movements as of late. Patient was discharged with strict return precautions Procedures Limited Ultrasound Findings:: Limited cardiac ultrasound Indication: chest pain, history of pericardial effusion Identified cardiac views: [-Cardiac parasternal long axis] [-Cardiac parasternal short axis] [-Cardiac apical four-chamber] [-Cardiac subxiphoid] Findings: [-Cardiac activity present -Gross wall motion normal -Pericardial effusion present - no evidence of tamponade -Right heart strain absent] Impression: -[From above] - Moderate pericardial effusion without evidence of tamponade Images [were saved] to permanent archive The study was technically adequate CPT: 09517 This study was performed by me, and I personally interpreted all images/videos. Based on my clinical judgement, these images were adequate and did not necessitate further imaging. Critical Care Critical Care Time Critical Care Time: Yes Attestation: On 11/30/24, the high probability of a clinically significant, sudden or life threatening deterioration of the following system(s) required my full and direct attention, intervention and personal management. The time I documented below is in addition to time spent performing reported procedures but includes the following listed in this critical care notation. Total Time Total Critical Care Time: 35
[2024-11-30 07:30] LABS: Basophils % 0.3 % (0.1-2.0); Eosinophils # 0.2 K/mm3 (0.0-0.4); Eosinophils % 2.6 % (0.1-12.0); Hematocrit 22.6 % (37.0-47.0); Hemoglobin 7.1 g/dL (12.2-16.2); Lymphocytes % 15.7 % (10-50); Mean Corpuscular HGB Conc 31.4 g/dL (31.8-35.4); Mean Corpuscular Volume 98.7 fl (81-99); Monocytes # 1.1 K/mm3 (0.1-1.0); Monocytes % 16.6 % (1.7-9.3); Neutrophils # 4.1 K/mm3 (1.8-7.8); Neutrophils % 64.5 % (37.0-80.0); Platelet Count 271 K/mm3 (142-424); Red Blood Count 2.29 M/mm3 (4.20-5.40); Red Cell Distribution Width 15.1 % (11.5-17.5); White Blood Count 6.4 K/mm3 (4.8-10.8)
--- NOTE | 2024-11-30 07:30 | PC.NURSE ---
Dr Garcia at bedside
--- NOTE | 2024-11-30 07:55 | PC.NURSE ---
Rad in room at bedside at this time.
[2024-11-30] MEDS: ASPIRIN 81MG CHEWABLE TABLET 324 MG PO (08:21)
--- NOTE | 2024-11-30 08:50 | PC.NURSE ---
called and spoke to lab about chemistry results. reports 20mins left on results due to QC of analyzer. updated
[2024-11-30 08:55] LABS: Albumin Level 2.7 g/dl (3.5-5.0); Chloride 113 mmol/L (98-107); Sodium 138 mmol/L (136-145)
[2024-11-30 08:57] LABS: Blood Urea Nitrogen 70 mg/dl (7-17); Creatinine Clearance Estimated 18 mL/min (50-200); Estimated Glomerular Filt Rate 18 ml/min (>60); GFR (African American) 21 ML/MIN (>60)
[2024-11-30 08:58] LABS: Alanine Aminotransferase 21 U/L (12-78); Alkaline Phosphatase 80 U/L (38-126); Anion Gap 12.3 mEq/L (5-15); Aspartate Amino Transferase 21 U/L (14-36); Bilirubin,Total 0.4 mg/dl (0.2-1.3); Calcium 9.3 mg/dl (8.4-10.2); Carbon Dioxide 18 mmol/L (22.0-30.0); Globulin 2.7 g/dL (1.3-3.2); Glucose 79 mg/dl (74-100); Potassium 5.3 mmoL/L (3.5-5.1); Total Protein,Serum 5.4 g/dl (6.3-8.2)
[2024-11-30 09:01] LABS: Lipase 131 U/L (23-300)
[2024-11-30 09:05] LABS: D-Dimer 0.83 ug/mL (0.0-0.5)
[2024-11-30 09:07] LABS: NT Pro Brain Natriuretic Pep. 4120 pg/mL (0-450)
[2024-11-30 09:10] LABS: Troponin I < 0.01 ng/ml (0.00-0.034)
[2024-11-30] MEDS: HYDRALAZINE HCL 25MG TABLET 50 MG PO (09:17)
[2024-11-30] MEDS: ACETAMINOPHEN 1,000MG/100ML VIAL 1000 MG IV (09:17)
[2024-11-30] MEDS: BUMETANIDE 1MG/4ML VIAL 1 MG IV (09:17)
[2024-11-30] MEDS: ISOSORBIDE MONO 60MG TAB.ER.24H 60 MG PO (09:18)
[2024-11-30 09:24] LABS: T4 (Thyroxine) 8.8 ug/dl (5.53-11.0)
--- NOTE | 2024-11-30 09:57 | PC.NURSE ---
Called Nephrology at [facility] per Dr Garcia to speak with them about this pt. There office said they would fax over the last office note that they had from the other day when she was there.
--- NOTE | 2024-11-30 10:03 | PC.NURSE ---
Called [facility] to speak with Dr George per Dr Garcia about this pt. [facility] said they would call who is manager online for Dr George and they would call us back.
--- NOTE | 2024-11-30 10:21 | PC.NURSE ---
Paperwork received from [facility] office and delivered to Dr Garcia.
--- NOTE | 2024-11-30 10:24 | PC.NURSE ---
Dr Hollingsworth from [facility] called and is speaking with Dr Garcia at this time
--- NOTE | 2024-11-30 10:40 | PC.NURSE ---
2nd troponin collected and sent to Lab
--- NOTE | 2024-11-30 10:48 | PC.NURSE ---
Pt's family voiced concern for pt's DBP being too low. I educated her on the medications pt received in the ER and shared her concerns with Dr Garcia.
[2024-11-30 11:05] LABS: Troponin I < 0.01 ng/ml (0.00-0.034)
== END 2024-11-30 12:19 | disposition home or self-care (01) ==
PROVIDERS: Emergency Provider Emergency Medicine; PCP Family Medicine Hospice and Palliative Medicine
DX: D64.9 Anemia, unspecified (principal); E87.5 Hyperkalemia; N18.9 Chronic kidney disease, unspecified; K59.00 Constipation, unspecified; I10 Essential (primary) hypertension; R07.9 Chest pain, unspecified; M79.602 Pain in left arm; R05.9 Cough, unspecified; R06.02 Shortness of breath
CPT/HCPCS: 71045; 80053; 83690; 83880; 84436; 84443; 84484; 85025; 85378; 93005; 96374; 96375; 99291; J0131; J1939

== ENCOUNTER 2025-03-21 08:29 | Inpatient (IN) | payer MEDICARE, SELFPAY ==
[2025-03-21] VITALS (26 sets, daily range): BP systolic 103–181; BP diastolic 47–70; PULSE 60–86; RESP 12–20; TEMP 36.5–37.3; O2SAT 93–100; BMI 23.9; BMI 23.1
--- NOTE | 2025-03-21 08:36 | ECG_ITS ---
APPROVED REPORT Exam: Resting ECG HR:65 bpm ECG Measurements Heart Rate 65 AXES KS 217 P 67 QRSd 149 QRS 108 QT 425 T -35 QTc 437 Conclusion SINUS RHYTHM WITH FIRST DEGREE AV BLOCK RIGHT AXIS DEVIATION [QRS AXIS > 100] INTRAVENTRICULAR CONDUCTION DELAY [130+ ms QRS DURATION] ABNORMAL ECG UNCONFIRMED REPORT Electronically signed by : MEDARDO SNEA, 03/22/2025 05:57:40
--- NOTE | 2025-03-21 08:36 | HMH.EDGENADL ---
Discharge Plan Disposition Patient Disposition: Admitted Clinical Impressions Clinical Impression: GI bleed, Anemia, Syncope, FIDEL (acute kidney injury) Discharge ED Provider: Jesus Ivory Adult HPI General Chief complaint: Syncope Stated complaint: syncope Time Seen by Provider: 03/21/25 08:34 Mode of Arrival: EMS Source of Information: Patient and EMS Limitations: No Limitations History of Present Illness HPI narrative: Lyssa Higgins is an 84-year-old female with a history of COPD on 2 L nasal cannula at baseline, chronic constipation on laxatives, CKD, hypertension, hypothyroidism, diabetes mellitus who presents to the emergency department via EMS from [facility] for diarrhea and passing out on the toilet. Patient states that she gets lightheaded when she stands up and her stools are chronically loose/diarrhea because she is on a laxative. She states that today, she does not remember what happened and last remembered getting up to go to the toilet. Reportedly while on the toilet, she had 2 episodes of passing out. EMS states that she had low blood pressure readings by the facility but has been normotensive and alert and oriented with them during the entire encounter. Patient denies any abdominal pain, chest pain, shortness of breath, dysuria or hematuria. She reports chronic right-sided shoulder pain secondary to a stroke that affected the right side of her body. Related Data Home Medications ?Medication ?Instructions ?Recorded ?Confirmed duloxetine 30 mg capsule,delayed 30 mg PO DAILY 07/28/22 03/21/25 release levothyroxine 75 mcg tablet 75 mcg PO DAILY 07/28/22 03/21/25 pantoprazole 40 mg tablet,delayed 40 mg PO DAILY 07/28/22 03/21/25 release atorvastatin 80 mg tablet 80 mg PO HS 05/28/24 03/21/25 budesonide-formoterol HFA 160 2 puff inhalation BID 05/28/24 03/21/25 mcg-4.5 mcg/actuation aerosol inhaler ferrous sulfate 325 mg (65 mg 325 mg PO DAILY 05/28/24 03/21/25 iron) tablet,delayed release fluticasone propionate 50 1 spray intranasal DAILY 05/28/24 03/21/25 mcg/actuation nasal spray,suspension insulin glargine U-300 conc 300 5 unit SQ HS 05/28/24 03/21/25 unit/mL (1.5 mL) subcutaneous pen (Toujeo SoloStar U-300 Insulin) insulin lispro 100 unit/mL See Protocol SQ ACHS 05/28/24 03/21/25 subcutaneous pen (Humalog KwikPen (U-100) Insulin) ipratropium 0.5 mg-albuterol 3 mg 3 ml inhalation Q4HP PRN Shortness 05/28/24 03/21/25 (2.5 mg base)/3 mL nebulization Of Breath soln sennosides 8.6 mg-docusate sodium 2 tab PO BIDP PRN Constipation 05/28/24 03/21/25 50 mg capsule loratadine 10 mg tablet 10 mg PO DAILY 08/19/24 03/21/25 melatonin 5 mg tablet 5 mg PO HS 08/19/24 03/21/25 aspirin 81 mg tablet,delayed 81 mg PO DAILY 11/30/24 03/21/25 release carvedilol 12.5 mg tablet 12.5 mg PO BID 11/30/24 03/21/25 hydralazine 50 mg tablet 50 mg PO TID 11/30/24 03/21/25 insulin lispro 100 unit/mL 3 unit SQ TID 11/30/24 03/21/25 subcutaneous solution ondansetron 4 mg disintegrating 4 mg PO Q6HP PRN Nausea And 11/30/24 03/21/25 tablet Vomiting trazodone 50 mg tablet 25 mg PO HS 11/30/24 03/21/25 acetaminophen 325 mg tablet 650 mg PO DAILY 03/21/25 03/21/25 albuterol sulfate 90 mcg/actuation 2 puff inhalation Q4HP PRN 03/21/25 03/21/25 aerosol inhaler Shortness Of Breath bumetanide 2 mg tablet 2 mg PO DAILY 03/21/25 03/21/25 doxazosin 2 mg tablet 2 mg PO HS 03/21/25 03/21/25 empagliflozin 10 mg tablet 10 mg PO DAILY 03/21/25 03/21/25 (Jardiance) isosorbide mononitrate 60 mg 60 mg PO DAILY 03/21/25 03/21/25 tablet,extended release 24 hr oxycodone 5 mg tablet 5 mg PO Q8HP PRN Moderate Pain 03/21/25 03/21/25 (Scale Score 5-6) polyethylene glycol 3350 17 17 g PO SUTUTHSA 03/21/25 03/21/25 gram/dose oral powder (Miralax) propylene glycol 0.6 % eye drops 1 drp Eye-Both QID 03/21/25 03/21/25 (Systane Balance) sodium zirconium cyclosilicate 5 5 g PO DAILY 03/21/25 03/21/25 gram oral powder packet (Lokelma) Allergies Allergy/AdvReac Type Severity Reaction Status Date / Time adhesive tape Allergy Unknown Verified 06/20/24 11:26 allergy reaction ciprofloxacin Allergy Unknown Verified 06/20/24 11:26 allergy reaction codeine Allergy Unknown Verified 06/20/24 11:26 allergy reaction doxycycline Allergy Unknown Verified 06/20/24 11:26 allergy reaction erythromycin base Allergy Unknown Verified 06/20/24 11:26 allergy reaction latex Allergy Unknown Verified 06/20/24 11:26 allergy reaction Penicillins Allergy Unknown Verified 06/20/24 11:26 allergy reaction Sulfa (Sulfonamide Allergy Unknown Verified 06/20/24 11:26 Antibiotics) allergy reaction PFSH PFSH Disclaimer: The information contained in this section may have been updated after the patient was seen, as this information can be updated by other users. Medical History Hypothyroid Diabetes mellitus Anemia COPD (chronic obstructive pulmonary disease) Anxiety HLD (hyperlipidemia) CKD (chronic kidney disease) Heart failure Surgical History H/O tubal ligation H/O cataract removal with insertion of prosthetic lens H/O hand surgery History of appendectomy Social History Smoking Status: Former smoker alcohol intake: never current occupational status: retired Travel in the last 8 weeks?: None Have you lived/traveled outside US in past 30 days?: No Contact w/someone who lives/traveled outside US past 30 days?: No Exposure to someone with infectious disease in past 14 days?: No Do you have a fever (greater than 100.4 F or 38 C)?: No Have you tested positive for COVID-19?: No Exposed to someone with COVID-19 in past 14 days?: No Do you have a sore throat?: No Do you have a cough?: No Do you have any weakness?: No Do you have any diarrhea?: No Are you experiencing any unusual bleeding?: No Do you have any muscle aches/pain?: No Do you have any abdominal pain?: No Are you experiencing loss of taste or smell?: No Other Medical History Have you received the Flu Vaccine for this season: No Have you received the Pneumonia Vaccine: No ROS Obtained: Yes Systems reviewed as appropriate & no additional complaints except as documented Physical Exam General General appearance: alert and in no apparent distress Comment: On 2L NC, in no distress Head Head exam: atraumatic Eye Eye exam: Present normal appearance ENT ENT exam: Present normal external ear exam Neck Neck exam: Present full ROM Chest Chest inspection: Present symmetric chest wall rise Respiratory Respiratory exam: Present normal lung sounds bilaterally; Absent respiratory distress, wheezes or stridor Cardiovascular Cardiovascular exam: Present regular rate and normal rhythm Abdominal Exam Abdominal exam: Present soft; Absent distention, tenderness or guarding Extremities Exam Extremities exam: Present normal inspection Back Exam Back exam: Present normal inspection Neurological Exam Neurological exam: Present alert and oriented X3 Psychiatric Psychiatric exam: Present normal affect Skin Skin exam: Present warm, dry and other (pale) Medical Decision Making Medical Records Screening: Per USPSTF and CDC recommendations, given the prevalence of disease in our region, it is our hospital?s policy to screen for HIV and viral Hepatitis for all patients aged 18 and over and those with ongoing risk factors. John Inquiry Pt receiving controlled substance: No Vital Signs: 03/21/25 08:21 03/21/25 08:34 03/21/25 08:36 Temperature 99.2 F Temperature Source Oral Pulse Rate 67 66 Pulse Rate [Right Radial] 66 Respiratory Rate 18 19 19 Blood Pressure 165/51 H 159/55 H Blood Pressure [Orthostatic Lying Right Arm] Blood Pressure [Orthostatic Sitting Right Arm] Blood Pressure [Right Arm] 165/51 H Blood Pressure Mean [Right Arm] 89 Blood Pressure Source Blood Pressure Source [Right Arm] Automatic Cuff Blood Pressure Position Blood Pressure Position [Right Arm] Sitting 02 Sat by Pulse Oximetry 96 100 100 Oxygen Delivery Method Nasal Cannula Nasal Cannula Nasal Cannula Oxygen Flow Rate (LPM) 2 2 2 03/21/25 08:37 03/21/25 08:43 03/21/25 08:44 Temperature Temperature Source Pulse Rate 65 67 Pulse Rate [Right Radial] Respiratory Rate 19 18 Blood Pressure 173/65 H 173/65 H Blood Pressure [Orthostatic Lying Right Arm] 159/55 H Blood Pressure [Orthostatic Sitting Right Arm] 173/65 H Blood Pressure [Right Arm] Blood Pressure Mean [Right Arm] Blood Pressure Source Automatic Cuff Blood Pressure Source [Right Arm] Blood Pressure Position Sitting Blood Pressure Position [Right Arm] 02 Sat by Pulse Oximetry 100 99 Oxygen Delivery Method Nasal Cannula Nasal Cannula Oxygen Flow Rate (LPM) 2 2 03/21/25 09:00 03/21/25 09:30 03/21/25 10:01 Temperature Temperature Source Pulse Rate 66 67 67 Pulse Rate [Right Radial] Respiratory Rate 12 12 16 Blood Pressure 171/55 H 181/57 H 166/58 H Blood Pressure [Orthostatic Lying Right Arm] Blood Pressure [Orthostatic Sitting Right Arm] Blood Pressure [Right Arm] Blood Pressure Mean [Right Arm] Blood Pressure Source Blood Pressure Source [Right Arm] Blood Pressure Position Blood Pressure Position [Right Arm] 02 Sat by Pulse Oximetry 100 100 100 Oxygen Delivery Method Nasal Cannula Oxygen Flow Rate (LPM) 2 2 03/21/25 10:31 03/21/25 10:50 Temperature 99.0 F Temperature Source Oral Pulse Rate 72 67 Pulse Rate [Right Radial] Respiratory Rate 13 20 Blood Pressure 151/63 H 151/63 H Blood Pressure [Orthostatic Lying Right Arm] Blood Pressure [Orthostatic Sitting Right Arm] Blood Pressure [Right Arm] Blood Pressure Mean [Right Arm] Blood Pressure Source Automatic Cuff Blood Pressure Source [Right Arm] Blood Pressure Position Sitting Blood Pressure Position [Right Arm] 02 Sat by Pulse Oximetry 100 Oxygen Delivery Method Nasal Cannula Nasal Cannula Oxygen Flow Rate (LPM) 2 2 Lab Data Lab Results 03/21/25 08:34: VBG pH 7.37, VBG pCO2 51.6 H, VBG pO2 67.5 H, VBG HCO3 29.0, VBG Total CO2 30.6 H, VBG O2 Saturation 92.0 H, VBG Base Excess 3.7 H, VBG Lactic Acid 1.3 03/21/25 08:35: WBC 5.9, RBC 2.29 L, Hgb 6.6 L*, Hct 21.7 L, MCV 94.8, MCH 28.8, MCHC 30.4 L, RDW 17.3, Plt Count 302, MPV 10.9 H, Neut % (Auto) 65.1, Lymph % (Auto) 17.7, [place] % (Auto) 14.6 H, Eos % (Auto) 2.0, Baso % (Auto) 0.3, Neut # (Auto) 3.8, Lymph # (Auto) 1.0, [place] # (Auto) 0.9, Eos # (Auto) 0.1, Baso # (Auto) 0.0, PT 11.3, INR 1.02, APTT 24.0, Sodium 136, Potassium 5.1, Chloride 97 L, Carbon Dioxide 33 H, Anion Gap 11.1, BUN 81 H, Creatinine 3.50 H, Estimated Creat Clear 12, Estimated GFR 13 L*, Est GFR ( Amer) 15 L*, Glucose 123 H, Calcium 9.6, Phosphorus 5.7 H, Magnesium 1.7, Total Bilirubin 0.3, AST 30, ALT 21, Alkaline Phosphatase 73, Troponin I 0.02, NT-Pro-B Natriuret Pep 5980 H, Total Protein 6.8 D, Albumin 3.7, Globulin 3.1, Albumin/Globulin Ratio 1.2 03/21/25 09:10: Urine Color Yellow, Urine Appearance Clear, Urine pH 7.0, Ur Specific [place] 1.015, Urine Protein 2+ A, Urine Glucose (UA) 2+, Urine Ketones Negative, Urine Blood Negative, Urine Nitrate Negative, Urine Bilirubin Negative, Urine Urobilinogen 1.0, Ur Leukocyte Esterase Negative, Urine RBC None, Urine WBC Occasional, Ur Squamous Epith Cells 5-10, Urine Bacteria None 03/21/25 09:19: Stool Occult Blood Positive A 03/21/25 09:36: Blood Type O Positive, Antibody Screen Negative, Crossmatch (AHG) See Detail 03/21/25 08:35 03/21/25 08:35 Orders (Tests/Meds): ED MEDICATIONS Generic Name Dose Route Start Last Admin Trade Name Freq PRN Reason Stop Dose Admin Acetaminophen 650 mg 03/21/25 10:50 Acetaminophen 325mg Tab PO 04/20/25 10:49 Q4HP PRN Fever or Mild Pain (1-3) Sodium Chloride 250 mls @ 25 mls/hr 03/21/25 10:15 Sod Chlor 0.9% 250ml Bag IV 03/22/25 10:14 .Q10H MODESTO Pantoprazole Sodium 80 mg/ 100 mls @ 100 mls/hr 03/21/25 12:20 Sodium Chloride IV 03/21/25 13:19 ONCE ONE Insulin Human Lispro 0 unit 03/21/25 11:00 Humalog 100 Units/Ml 10ml Vial ([facility]) SUBCUT 04/20/25 10:59 ACHS [place]DE[place]O Protocol Ondansetron HCl 4 mg 03/21/25 10:50 Ondansetron 4mg/2ml Vial IV 04/20/25 10:49 Q8HP PRN Nausea Pantoprazole Sodium 40 mg 03/21/25 21:00 Pantoprazole 40mg Tablet PO 04/20/25 20:59 BID MODESTO Sodium Chloride 10 ml 03/21/25 10:50 Sodium Chloride 0.9% 10ml Flush Syringe IV 04/20/25 10:49 NEEDED PRN Maintain IV Site Discontinued Medications Generic Name Dose Route Start Last Admin Trade Name Freq PRN Reason Stop Dose Admin Lactated Ringer's 500 mls @ 999 mls/hr 03/21/25 08:35 03/21/25 08:43 Lactated Ringer's 500ml IV 03/21/25 09:05 999 mls/hr .Q31M ONE Administration ORDERS Category Date Time Status Transfuse RBC's [Red Blood Cells] Stat [facility] 03/21/25 09:36 Results Type and Screen Stat [facility] 03/21/25 09:36 Results BNP [NT Pro Brain Natriuretic Pep.] Stat Lab 03/21/25 08:35 Completed CBC w/Auto Diff [Complete Blood Count Auto Diff] Stat Lab 03/21/25 08:35 Completed CMP [Comprehensive Metabolic Panel] Stat Lab 03/21/25 08:35 Completed Magnesium Stat Lab 03/21/25 08:35 Completed Occult Blood,Stool Stat Lab 03/21/25 09:19 Completed PHOS [Phosphorous] Stat Lab 03/21/25 08:35 Completed PT INR [Prothrombin Time INR] Stat Lab 03/21/25 08:35 Completed PTT [Activated Partial Thrombo Time] Stat Lab 03/21/25 08:35 Completed Troponin I Q3H Lab 03/21/25 11:25 Completed Troponin I Q3H Lab 03/21/25 14:45 Ordered Troponin I Stat Lab 03/21/25 08:35 Completed UA [Urinalysis and Microscopic] Stat Lab 03/21/25 09:10 Completed VBG [Venous Blood Gas] Stat RT 03/21/25 08:34 Completed ECG Data Tracing #1: I reviewed this ECG and interpreted as documented below: Normal sinus rhythm. First-degree AV block with NH interval of 217. Left bundle branch block similar to previous without STEMI based on Sgarbossa criteria Medical Decision Narrative: Lyssa Higgins is an 84-year-old female with a history of COPD on 2 L nasal cannula at baseline, chronic constipation on laxatives, CKD, hypertension, hypothyroidism, diabetes mellitus who presents to the emergency department via EMS from [place] for diarrhea and passing out on the toilet. Patient states that she gets lightheaded when she stands up and her stools are chronically loose/diarrhea because she is on a laxative. She states that today, she does not remember what happened and last remembered getting up to go to the toilet. Reportedly while on the toilet, she had 2 episodes of passing out. EMS states that she had low blood pressure readings by the facility but has been normotensive and alert and oriented with them during the entire encounter. Patient denies any abdominal pain, chest pain, shortness of breath, dysuria or hematuria. She reports chronic right-sided shoulder pain secondary to a stroke that affected the right side of her body. On arrival, patient is maintaining appropriate oxygen saturation on 2 L nasal cannula (her baseline), heart rate within normal limits, afebrile, hypertensive. Physical exam, stated above, revealed an overall well-appearing female in no respiratory distress. She is speaking in full sentences. Cardiopulmonary exams unremarkable. Abdomen is soft, nontender nondistended. She does appear pale but is GCS 15 and answering questions appropriately. Differential diagnosis includes, but is not limited to: Cardiac syncope, cardiac arrhythmia, vasovagal syncope, electrolyte derangement, metabolic derangement, anemia, urinary tract infection, low concern for stroke as patient is alert and oriented with no focal neurological deficits. The most morbid conditions were considered and workup was based on these. Workup in the emergency department included: CBC, troponin, PT/INR, PTT, Hemoccult testing, urinalysis, magnesium level, BNP, phosphorus level, type and screen CMP, CBC with differential, EKG, VBG with lactic acid. Patient was given 500 mL of lactated ringer. Workup significant for no leukocytosis, significant anemia with hemoglobin of 6.6 (baseline appears to be between 7 and 8 and was 7.1 in November of this year) with chronically elevated BUN. BUN today is 81, which is higher than her previous of 70 back in November. Platelets normal at 302. VBG with chronically elevated pCO2 of 51.6 but well compensated with bicarb 29 and pH of 7.37. Lactate normal at 1.3. Electrolytes within normal limits. Creatinine is elevated above baseline at 3.5 (baseline is around 2.5-2.6). Phosphorus mildly elevated 5.7. Liver enzymes within normal limits. Initial troponin 0.02 with repeat troponin pending. EKG is nonischemic. BNP is elevated at 5980 (is chronically elevated and at baseline). Urinalysis with 2+ protein but no evidence of blood or infection. Hemoccult testing is positive. Coagulation studies unremarkable. Given patient's symptomatic anemia, is felt that she would benefit from transfusions. Family is at the bedside. I discussed with him that she is having GI bleeding from unknown source at this time. They note that previously she had a staple put in her stomach and was evaluated at [facility] for previous GI bleeding and had scopes that were negative. They are not sure exactly when this took place. They do note that she was recently seen at [facility] 3 months ago but do not believe she had scopes at that time. Patient was admitted to [facility] back in July 2024 for significant anemia with hemoglobin of 5.8. Patient will be transfused 1 unit of PRBCs given her symptomatic anemia. Will also place consult for GI evaluation. Discussed patient's case with Dr. Hammer for admission given her symptomatic anemia and further workup of her GI bleeding and FIDEL. He graciously accepted the patient for admission. I discussed admission with patient and family and they were agreeable for admission at this time. Patient abby stable throughout her ED visit and was appropriate for admission at this time Critical Care Critical Care Time Critical Care Time: Yes Attestation: On 03/21/25, the high probability of a clinically significant, sudden or life threatening deterioration of the following system(s) required my full and direct attention, intervention and personal management. The time I documented below is in addition to time spent performing reported procedures but includes the following listed in this critical care notation. Total Time Total Critical Care Time: 35
[2025-03-21] MEDS: RINGERS SOLUTION,LACTATED 500 ML 999 ML IV (08:43)
--- OUTSIDE RECORDS SUMMARY | 2025-03-21 08:43 | XMS_ITS | Encounter Summary ---
Author Organization [facility] Address [address] [place] [address] Care Team Providers Care Program Director/Traffic Director Name Role Phone Anand Noble MD Primary Care Provider Sabiha Garnett LPN Unavailable Unavailab Sabiha Carlos LPN Unavailable Unavailab Marlyn Staples [employer] Unavailable Unavailable Marlyn Saenz [employer]ER Unavailable Unavailable Encounter Details Date Type Department Care Team (Late st Contact Info) Description 05/16/2022 Outside Procedure External Location [address] [place] [id number] Provider, Izaiah Hewitt Social History Tobacco Use Types Packs/Day Years Used Date Smoking Tobacco: Former Cigarettes 0.5 39 1 198 - 1997 Smokeless Tobacco: Never Alcohol Use Standard Drinks/Week Comments Yes 0 (1 standard drink = 0.6 oz pur e alcohol) PHQ-2 Answer Date Recorded Patient Health Questionnaire-2 Score 0 05/09/2022 Comments Unknown Sex and Gender Information Value Date Recorded Sex Assigned at Not on file Legal Sex Female 8:39 PM EDT Gender Identity Not on file Sexual Orientation Not on file COVID-19 Exposure Response Date Recorded In the last 10 days, have yo u been in contact with someone who was confirmed or suspected to have Coronavirus/COVID-19? No / Unsure 05/16/2022 11:05 AM EDT documented as of this encounter Plan of Treatment Not on file documented as of this encounter Procedures Procedure Name Priority Date/Time Associated Diagnosis Comments XR CHEST 1 VIEW 05/16/2022 12:20 PM EDT documented in this encounter Results * XR Chest 1 View (05/16/2022 12:20 PM EDT) Anatomical Region Laterality Modality Chest Radiographic Leslie ging 05/16/2022 12:2 0 PM EDT Narrative 05/16/2022 12:48 [place] [address] Name: LYSSA HIGGINS Exam Date: 05/16/2022 : 1940 Age 81 Gender: F Physician: MARCO ANTONIO HORTA Facility: [facility] Facility HSV: Outpatient Exam: CHEST PORTABLE CHEST, 1 view HISTORY: Chest pain COMPARISON: None. FINDINGS: The lungs are clear. There is no evidence of effusion or other pleural disease. The mediastinum has a normal appearance. The cardiac silhouette is unremarkable. IMPRESSION: No acute cardiopulmonary process. Dictated By: Timoteo Marquez Transcribed By: Timoteo Ramos Transcribed On: 05/16/2022 12:36 PM Electronically signed by: Timoteo Marquez 05/16/2022 Thank you for referring LYSSA HIGGINS to [facility]. Legally authenticated by ABIDA RODRIGUEZ 2022-05-16 12:36:50 Procedure Note Provider, [facility] - 05/16/2022 [place] [address] Name: LYSSA HIGGINS Exam Date: 05/16/2022 : 1940 Age 81 Gender: F Physician: MARCO ANTONIO HORTA Facility: [facility] Facility HSV: Outpatient Exam: CHEST PORTABLE CHEST, 1 view HISTORY: Chest pain COMPARISON: None. FINDINGS: The lungs are clear. There is no evidence of effusion or other pleural disease. The mediastinumhas a normal appearance. The cardiac silhouette is unremarkable. IMPRESSION: No acute cardiopulmonary process. Dictated By: Timoteo Marquez Transcribed By: Timoteo Ramos Transcribed On: 05/16/2022 12:36 PM Electronically signed by: Timoteo Marquez 05/16/2022 Thank you for referring LYSSA HIGGINS to [facility]. Legally authenticated by ABIDA RODRIGUEZ 2022-05-16 12:36:50 [facility] Provider IMG XR PROCEDURES Fi nal Result documented in this encounter Visit Diagnoses Not on filedocumented in this encounter Additional Health Concerns Infection Onset Date Last Indicated Resolved Time COVID-19 Rule-Out 10/18/2023 10/18/2023 10/18/2023 5:55 AM EST COVID-19 Rule-Out 05/06/2024 05/06/2024 05/06/2024 10:52 AM EDT Assessment Noted Time A fall risk assessment has been complete d for the patient 05/16/2022 11:21 AM EDT documented as of this encounter Care Teams Program Director/Traffic Director Relationship Specialty Start Date End Date Anand Noble MD [address] [facility] [address] [place] [address] PCP - General Family Medicine 02/10/22 Sabiha Garnett LPN [employer] Registered Nurse 08/08/22 09/05/22 Sabiha Garnett LPN [employer] Licensed Practical Nurse 07/31/23 08/04/23 Marlyn Saenz LPN [place] [address] TCM Nurse 09/28/23 10/21/23 Marlyn Saenz LPN [place] [address] TCM Nurse 01/12/24 02/11/24 documented as of this encounter
--- OUTSIDE RECORDS SUMMARY | 2025-03-21 08:43 | XMS_ITS | Encounter Summary ---
Author Organization [facility] Address [address] [place] [address] Care Team Providers Care Long Distance Billing Operator Name Role Phone Anand Noble MD Primary Care Provider Marlyn Saenz LPN Unavailable Unavailable Encounter Details Date Type Department Care Team (Late st Contact Info) Description 11/03/2023 Outside Procedure External Location [address] [place] [address] Provider, [facility] Social History Tobacco Use Types Packs/Day Years Used Date Smoking Tobacco: Former Cigarettes 0.5 39 1 958 - 1997 Passive Smoke Exposure: Never Smokeless Tobacco: Never Alcohol Use Standard Drinks/Week Comments Yes 0 (1 standard drink = 0.6 oz pur e alcohol) Humiliation, Afraid, Rape, and Kick questionnair e Answer Date Recorded Within the last year, have y ou been afraid of your partner or ex-partner? No 10/22/2023 Within the last year, have y ou been humiliated or emotionally abused in other ways by your partner or ex-partner? No Within the last year, have y ou been kicked, hit, slapped, or otherwise physically hurt by your partner or ex-partner? No 10/22/2023 Within the last year, have y ou been raped or forced to have any kind of sexual activity by your partner or ex-partner? No 10/22/2023 PHQ-2 Answer Date Recorded Patient Health Questionnaire-2 Score 0 11/02/2023 Hunger Vital Sign Answer Date Recorded Within the past 12 months, y ou worried that your food would run out before you got the money to buy more. Never true 10/22/19 24 Within the past 12 months, t he food you bought just didn't last and you didn't have money to get more. Never true 10/22/2023 PRAPARE - Transportation Answer Date Re corded In the past 12 months, has l ack of transportation kept you from medical appointments or from getting medications? No 09/25 In the past 12 months, has l ack of transportation kept you from meetings, work, or from getting things needed for daily living? No 10/22/2023 Housing Stability Vital Sign Answer Taj e Recorded In the last 12 months, was t here a time when you were not able to pay the mortgage or rent on time? No 10/22/2023 In the last 12 months, how many places have you lived? 1 10/22/2023 In the last 12 months, was t here a time when you did not have a steady place to sleep or slept in a mcc (including now)? No 10/22/2023 CAGE ASSESSMENT Answer Date Recorded Cage unable to access Not on file 10/21/2023 Maximum number of drinks you had on a given occasion in the last month? 1 drink 10/21/2023 How many alcoholic Beverages do you typically drink in a week? 0 - 7 per week 10/21/2023 Have you ever felt you should CUT down on your d rinking? 0 10/21/2023 Have you been ANNOYED by peo ple criticizing your drinking? 0 10/21/2023 Have you felt GUILTY about your drinking? 0 10/21/2023 Have you had a drink first t beatrice in the morning (EYE-REHABILITATION PSYCHOLOGIST) to steady your nerves or to get rid of a hangover? 0 10/21/2023 CAGE Questionnaire Score 0 024 Utilities Answer Date Recorded In the past 12 months has th e [employer], gas, oil, or water company threatened to shut off services in your home? No 10/22/2023 PHQ-2A Answer Date Recorded Patient Health Questionnaire-2 Score 0 12/04/2022 Comments Unknown Sex and Gender Information Value Date Recorded Sex Assigned at Not on file Legal Sex Female 8:39 PM EDT Gender Identity Not on file Sexual Orientation Not on file documented as of this encounter Plan of Treatment Not on file documented as of this encounter Procedures Procedure Name Priority Date/Time Associated Diagnosis Comments XR CHEST 1 VIEW 11/03/2023 1:40 AM EDT documented in this encounter Results * XR Chest 1 View (11/03/2023 1:40 AM EDT) Anatomical Region Laterality Modality Chest Digital Radiogra phy 11/03/2023 1:40 AM EDT Narrative 11/03/2023 9:31 [place] [address] Name: LYSSA HIGGINS Exam Date: 11/03/2023 : 1940 Age 83 years Gender: F Physician: SAM MONZON Facility: [facility] Facility HSV: Outpatient Exam: CHEST PORTABLE CHEST, 1 views HISTORY: Chest pain protocol COMPARISON: None. FINDINGS: Bilateral bronchial thickening. No consolidation. No pleural effusion. No pneumothorax The cardiac silhouette is unremarkable. IMPRESSION: Bronchitis. No focal pneumonia. Dictated By: Timoteo Marquez Transcribed By: Timoteo Ramos Transcribed On: 11/03/2023 9:00 AM Electronically signed by: Timoteo Marquez 11/03/2023 Thank you for referring LYSSA HIGGINS to [facility]. Legally authenticated by ABIDA RODRIGUEZ 2023-11-03 09:00:49 Procedure Note Provider, [facility] - 11/03/2023 [place] [address] Name: LYSSA HIGGINS Exam Date: 11/03/2023 : 1940 Age 83 years Gender: F Physician: SAM MONZON Facility: [facility] Facility HSV: Outpatient Exam: CHEST PORTABLE CHEST, 1 views HISTORY: Chest pain protocol COMPARISON: None. FINDINGS: Bilateral bronchial thickening. No consolidation. No pleural effusion.No pneumothorax The cardiac silhouette is unremarkable. IMPRESSION: Bronchitis. No focal pneumonia. Dictated By: Timoteo Marquez Transcribed By: Timoteo Ramos Transcribed On: 11/03/2023 9:00 AM Electronically signed by: Timoteo Marquez 11/03/2023 Thank you for referring [facility] L[facility]SS[facility] to [facility]. Legally authenticated by ABIDA RODRIGUEZ 2023-11-03 09:00:[address] [facility] Provider IMG XR PROCEDURES Fi nal Result documented in this encounter Visit Diagnoses Not on filedocumented in this encounter Additional Health Concerns Infection Onset Date Last Indicated Resolved Time COVID-19 Rule-Out 05/06/2024 05/06/2024 05/06/2024 10:52 AM EDT Assessment Noted Time A fall risk assessment has been complete d for the patient 11/02/2023 11:27 AM EDT A Body Mass Index follow-up plan has been documented for the patient 11/02/2023 1:57 PM EDT documented as of this encounter Care Teams Long Distance Billing Operator Relationship Specialty Start Date End Date Anand Noble MD [address] [facility] [address] [place] [address] PCP - General Family Medicine 02/10/22 Marlyn Saenz LPN [employer] [place] [address] TCM Nurse 01/12/24 02/11/24 documented as of this encounter
--- OUTSIDE RECORDS SUMMARY | 2025-03-21 08:43 | XMS_ITS | Encounter Summary ---
Author Organization [facility] Address [address] [id number] Care Team Providers Care Lab Animal Technologist Name Role Phone Jey Read MD Primary Care Provider [phone] Anand Noble MD Primary Care Provider Sabiha Garnett LPN Unavailable Unavailab Sabiha Carlos NIGHT SHIFT SUPERVISOR Unavailable Unavailab Marlyn Staples NIGHT SHIFT SUPERVISOR Unavailable Unavailable Marlyn Saenz NIGHT SHIFT SUPERVISOR Unavailable Unavailable Reason for Visit * Reason Comments Med Refill Encounter Details Date Type Department Care Team (Late st Contact Info) Description 10/29/2021 Refill [facility] [address] [place] [address] Jey Read MD [address] [place] [address] Insomnia, unspecified Social History Tobacco Use Types Packs/Day Years Used Date Smoking Tobacco: Former Cigarettes 0.5 39 1 958 - 1997 Smokeless Tobacco: Never Alcohol Use Standard Drinks/Week Comments Yes 0 (1 standard drink = 0.6 oz pur e alcohol) PHQ-2 Answer Date Recorded Patient Health Questionnaire-2 Score 0 04/19/2021 Comments Unknown Sex and Gender Information Value Date Recorded Sex Assigned at Not on file Legal Sex Female 8:39 PM EDT Gender Identity Not on file Sexual Orientation Not on file COVID-19 Exposure Response Date Recorded In the last month, have you been in contact with someone who was confirmed or suspected to have Coronavirus / COVID-19? No / Unsure 11/01/2021 1:20 PM EST documented as of this encounter Plan of Treatment Not on file documented as of this encounter Visit Diagnoses Diagnosis Insomnia, unspecified documented in this encounter Additional Health Concerns Infection Onset Date Last Indicated Resolved Time COVID-19 Rule-Out 10/18/2023 10/18/2023 10/18/2023 5:55 AM EST COVID-19 Rule-Out 05/06/2024 05/06/2024 05/06/2024 10:52 AM EDT Assessment Noted Time A fall risk assessment has been complete d for the patient 09/17/2021 11:48 AM EST documented as of this encounter Care Teams Lab Animal Technologist Relationship Specialty Start Date End Date Jey Read MD [address] [place] [address] PCP - General 01/04/21 02/09/22 Anand Noble MD [address] [facility] [address] [place] [address] PCP - General Family Medicine 02/10/22 Sabiha Garnett LPN VALUE-BASED TRANSFORMATION PROGRAM Registered Nurse 08/08/22 09/05/22 Sabiha Garnett LPN VALUE-BASED TRANSFORMATION PROGRAM Licensed Practical Nurse 07/31/23 08/04/23 Marlyn Saenz LPN [employer] [place] [address] TCM Nurse 09/28/23 10/21/23 Marlyn Saenz NIGHT SHIFT SUPERVISOR VALUE-BASED [place] [address] TCM Nurse 01/12/24 02/11/24 documented as of this encounter
--- OUTSIDE RECORDS SUMMARY | 2025-03-21 08:43 | XMS_ITS | Clinical Summary ---
Author Organization [facility] Address [address] [place] [address] Care Team Providers Care Chemical Equipment Controller Name Role Phone Anand Noble MD Primary Care Provider Allergies Active Allergy Reactions Criticality Noted Date Comments Ciprofloxacin Rash,Unknown - Patie nt states they do not know rxn details Low 02/13/2019 Codeine Nausea,Other - pleas e document in the comment field Low 04/29/2013 Doxycycline Rash,Unknown - Patie nt states they do not know rxn details Low 04/29/2013 Erythromycin Rash,Unknown - Patie nt states they do not know rxn details Low 04/29/2013 Latex Unknown - Patient st ates they do not know rxn details Low 02/13/2019 Sulfacetamide Hives,Unknown - Bev ent states they do not know rxn details Medium 04/29/2013 Medications Continuous Blood Gluc Sensor misc 1 sensor 1 (one) time each day. 2 sensor 3 12/05/19 23 Active atorvastatin (Lipitor) 80 MG tabletIndications :Hyperlipidemia, unspecified,Ather osclerotic heart disease of [place] coronary artery without angina pectoris Take 1 tablet (80 mg) by mouth 1 (one) time each day. 30 tablet 10/22/19 24 Active fluticasone-salme terol (Wixela Inhub) 250-50 MCG/ACT diskus inhaler Inhale 1 puff 2 (two) times a day. Rinse mouth with water after use to reduce aftertaste and incidence of candidiasis. Do not swallow. 14 each 10/22/19 24 Active Melatonin 10 MG tablet Take by mouth. Activ e nitroglycerin (Nitrostat) 0.[address] 1 tablet (0.4 mg) under the tongue every 5 (five) minutes if needed for chest pain. May repeat every 5 minutes for up to 3 doses. 10 tablet 1 11/02/19 24 Active carvedilol (Coreg) 3.125 MG tabletIndications :Coronary artery disease with other form of angina pectoris, unspecified vessel or lesion type, unspecified whether [place] or transplanted heart (CMS/HCC) Take 1 tablet (3.125 mg) by mouth 2 (two) times a day with meals. 180 tablet 3 11/02/19 24 Active traZODone (Desyrel) 50 MG tablet Take 1 tablet (50 mg) by mouth at night if needed for sleep. 30 tablet 5 11/02/19 24 Active ipratropium (Atrovent) 0.03 % nasal spray Administer 2 sprays into each nostril 2 (two) times a day. 30 mL 11/02/19 24 Active hydrOXYzine HCl (Atarax) 10 MG tablet Take 1 tablet (10 mg) by mouth 1 (one) time. 02/07/20 24 Active ergocalciferol 1.25 MG (91546 UT) capsule Take 1 capsule (50,000 Units) by mouth 1 (one) time per week. 02/07/20 24 Active pantoprazole (Protonix) 40 MG EC tablet Take 1 tablet (40 mg) by mouth 1 (one) time each day. 02/07/20 24 Active aspirin 81 MG EC tablet Take 1 tablet (81 mg) by mouth 1 (one) time each day. Active DULoxetine (Cymbalta) [address] capsule Take 1 capsule (30 mg) by mouth 1 (one) time each day. 02/07/20 24 Active amLODIPine (Norvasc) 5 MG tablet Take 1 tablet (5 mg) by mouth 1 (one) time each day. 02/02/20 24 Active Nystatin powder Apply 60 Applications topically 2 (two) times a day. Active docusate sodium (Colace) 100 MG capsule Take 1 capsule (100 mg) by mouth 2 (two) times a day. Active levothyroxine (Synthroid, Levoxyl) 75 MCG tabletIndications :Hypothyroidism, unspecified Take 1 tablet (75 mcg) by mouth 1 (one) time each day. 90 tablet 3 03/07/20 24 Active sodium zirconium cyclosilicate (Lokelma) 10 g packetIndications :Chronic hypokalemia,Stage 3b chronic kidney disease (CMS/HCC) Take 10 g by mouth 1 (one) time each day. 300 g 2 03/08/20 24 Active bumetanide (Bumex) 1 MG tablet TAKE 1 TABLET BY MOUTH 1 TIME EACH DAY. 90 tablet 04/08/20 24 Active clotrimazole (Lotrimin) 1 % cream APPLY TO AFFECTED AREA TWICE A DAY 30 g 2 04/08/20 24 Active Insulin Glargine, 2 Unit Dial, (Toujeo Max SoloStar) 300 UNIT/ML injection pen Inject 10-20 Units under the skin every night. 6 mL 2 04/14/20 24 Active acetaminophen (Tylenol) 500 MG tablet Take 2 tablets (1,000 mg) by mouth every 6 (six) hours if needed. Active furosemide (Lasix) 40 MG tabletIndications :Localized edema TAKE 1 TABLET (40 MG) BY MOUTH 1 (ONE) TIME EACH DAY. 30 tablet 05/25/20 24 Active Active Problems Problem Noted Date Diagnosed Date Acute on chronic respiratory failure with hypoxe ese 01/21/2024 Debility 12/05/2023 Abnormal stress test 12/04/2023 Acute on chronic diastolic CHF (congestive heart failure) 12/04/2023 Overview (01/21/2024): Echo (12/05/2023): LVEF 50%. Moderate mitral stenosis due to MAC. Moderate pericardial effusion with no tamponade. Pleural effusions present. 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 She Would do better if she had a santosh so we will try to get one for her through dme I checked her feet today Allergic rhinitis 04/12/2019 CAD (coronary artery disease) 04/12/2019 Insomnia 04/12/2019 Hyperlipidemia 04/12/2019 Chronic obstructive pulmonary disease, unspecifi ed 02/28/2019 Stenosis of aorta 02/28/2019 Obstructive sleep apnea, adult 02/28/2019 Hypothyroidism 02/28/2019 GERD (gastroesophageal reflux disease) 9 Anemia, unspecified 04/29/2013 CKD (chronic kidney disease) stage 3, GFR 30-59 ml/min 04/29/2013 Depression 04/29/2013 Diabetes mellitus type 2, uncomplicated 04/29/20 13 Polymyalgia rheumatica 04/29/2013 Osteoporosis 04/29/2013 Morbid obesity 04/29/2013 Essential (primary) hypertension 04/29/2013 Vitamin D deficiency 04/29/2013 Resolved Problems Problem Noted Date Diagnosed Date Resolved Date Hyperkalemia 10/21/2023 10/22/2023 Acute upper respiratory infe ction, unspecified 09/17/2021 11/01/2021 Deformity of right wrist 10/31/2020 Immunizations Immunization Administration Dates Next Due Influenza, high-dose, quadrivalent 05/09/2022,,06/05/2020 Influenza, seasonal, injectable 07/21/2023,07/16 Moderna Covid-19 Vaccine 12y +, Uriel Protein, Preservative free 07/21/2023 FoxyTasks COVID-19 Vac cine (Purple Cap) 12+ 07/16/2021,10/20/2020,09/29/2020 Tdap 12/04/2022 Family History Medical History Relation Name Comments COPD Brother Diabetes Daughter COPD Father Conversions - Other Father Carcinom a Of The Lung COPD Mother Coronary artery disease Mother COPD Sister Relation Name Status Comments Brother Daughter Father Mother Sister Social History Tobacco Use Types Packs/Day Years Used Date Smoking Tobacco: Former Cigarettes 0.5 39 1 958 - 1997 Passive Smoke Exposure: Never Smokeless Tobacco: Never Tobacco Cessation:Counseling Given: Not Answered Alcohol Use Standard Drinks/Week Comments Yes 0 (1 standard drink = 0.6 oz pur e alcohol) Humiliation, Afraid, Rape, and Kick questionnair e Answer Date Recorded Within the last year, have y ou been afraid of your partner or ex-partner? No 05/03/2024 Within the last year, have y ou been humiliated or emotionally abused in other ways by your partner or ex-partner? No Within the last year, have y ou been kicked, hit, slapped, or otherwise physically hurt by your partner or ex-partner? No 05/03/2024 Within the last year, have y ou been raped or forced to have any kind of sexual activity by your partner or ex-partner? No 05/03/2024 PHQ-2 Answer Date Recorded Patient Health Questionnaire-2 Score 0 05/03/2024 Hunger Vital Sign Answer Date Recorded Within the past 12 months, y ou worried that your food would run out before you got the money to buy more. Never true 05/03/20 24 Within the past 12 months, t he food you bought just didn't last and you didn't have money to get more. Never true 05/03/2024 PRAPARE - Transportation Answer Date Re corded In the past 12 months, has l ack of transportation kept you from medical appointments or from getting medications? No 04/24 In the past 12 months, has l ack of transportation kept you from meetings, work, or from getting things needed for daily living? No 05/03/2024 Housing Stability Vital Sign Answer Taj e Recorded In the last 12 months, was t here a time when you were not able to pay the mortgage or rent on time? No 05/03/2024 In the last 12 months, how many places have you lived? 1 05/03/2024 In the last 12 months, was t here a time when you did not have a steady place to sleep or slept in a long-term (including now)? No 05/03/2024 CAGE ASSESSMENT Answer Date Recorded Cage unable [...] drink first t beatrice in the morning (EYE-SET DECORATOR) to steady your nerves or to get rid of a hangover? 0 10/21/2023 CAGE Questionnaire Score 0 024 Utilities Answer Date Recorded In the past 12 months has th [employer], gas, oil, or water company threatened to shut off services in your home? No 05/03/2024 PHQ-2A Answer Date Recorded Patient Health Questionnaire-2 Score 0 12/04/2022 Comments Unknown Sex and Gender Information Value Date Recorded Sex Assigned at Not on file Legal Sex Female 8:39 PM EDT Gender Identity Not on file Sexual Orientation Not on file Last Filed Vital Signs Vital Sign Reading Time Taken Comments Blood Pressure 178/72 05/06/2024 2:25 PM EDT Pulse 78 05/06/2024 2:25 PM EDT Temperature 36.8 C (98.2 F) 05/06/2024 2:25 PM EDT Respiratory Rate 15 05/06/2024 2:25 PM EDT Oxygen Saturation 94% 05/06/2024 2:25 PM EDT Inhaled Oxygen Concentration - - Weight 81 kg (178 lb 9.2 oz) 05/06/2024 8:29 AM EDT Height 162.6 cm (5' 4 ) 05/03/2024 8:46 AM EDT Body Mass Index 30.65 05/03/2024 8:46 AM EDT Plan of Treatment Health Maintenance Due Date Last Done Comments [facility]-Bone Density Scan 1940 [facility]-Medicare Annual Wellness (AWV) 1940 [facility]-Infant/Child/Adol SDOH Screenings 1940 Diabetes: Dental Exam 1952 [facility]-Pneumococcal Vaccine: 50+ Years (1 of 2 - PCV) 1961 [facility]-Zoster Vaccines (1 of 2) 1961 [facility]-RSV Vaccine: 60+ Years or (1 - 1-dose 75+ series) 2017 [id number] Vaccine ( - season) 2024 07/21/2023, 07/16/2021, 10/20/2020, Additional history exists [facility]-Diabetes: Hemoglobin A1C 06/06/2024 03/07/2024, 12/05/2023, 10/01/2023, Additional history exists [facility]- SDOH Screenings 10/31/2024 [facility]-Adult SDOH Screenings 10/31/2024 05/03/2024 [facility]-Influenza Vaccine (#1) 04/24/202507/21, 05/09/2022, 06/04/2021, Additional history exists [facility]-Depression Screening 05/03/2025 05/03/2024 [facility]-DTaP,Tdap,and Td Vaccines (2 - Td or Tdap) 12/04/2032 12/04/2022 [facility]-Obesity Intervention Completed 024, 03/07/2024, 01/21/2024, Additional history exists HPV Vaccines Aged Out No longer eligi ble based on patient's age to complete this topic [facility]-HIB Vaccines Aged Out No longer e ligible based on patient's age to complete this topic [facility]-Hepatitis A Vaccines Aged Out No longer eligible based on patient's age to complete this topic [facility]-IPV Vaccines Aged Out No longer e ligible based on patient's age to complete this topic [facility]-Rotavirus Vaccines Aged Out No lo nger eligible based on patient's age to complete this topic Procedures Procedure Name Priority Date/Time Associated Diagnosis Comments HEMOGLOBIN A1C Routine 03/07/2024 4:46 PM EDT Type 2 diabetes mellitus without complication, without long-term current use of insulin ([facility]) from Last 3 Months or Most Recently Relevant to Health Maintenance Results * (ABNORMAL) Hemoglobin A1c (03/07/2024 4:46 PM EDT) Hemoglobin A1c 7.1(H) <5.7 % 03/07/2024 7:05 PM EDT [facility] Blood Venous blood specimen / Unknown Venipuncture / Unknown 03/07/2024 4:46 PM EDT 03/07/2024 4:46 PM EDT Narrative [facility] - 03/07/2024 7:05 PM EDT HA1C Interpretive Data: Diagnosis of Diabetes: Diabetic > or = 6.5% Pre-diabetic 5.7 to 6.4% Non-diabetic < or = 5.6% Glycemic Targets for Type I and Type II Diabetics: Non- Adults <7.0% Adults <6.0% Children and Adolescents <7.5% Source: [place] [employer]. Standards of medical care in diabetes,2017. Diabetes Care.2017:40 (suppl 1):S1-S135. HbA1c assay performed by an ion-exchange chromatography method that is certified traceable to the DCCT. us [facility] PUBLIC HEALTH NUTRITIONIST LAB BLOOD ORDERABLES Final Re sult [facility] [address] [place] [address] from Last 3 Months or Most Recently Relevant to Health Maintenance Insurance [facility] MEDICARE Advance Directives * Full Code (Latest Code Status on File) Date Activated Date Inactivated Comments 10/21/2023 5:56 AM 10/22/2023 5:54 PM Significant conversation was had in regards to code status and patient came to this as final conclusion Question Answer Comments Patient has decision-making capacity? Yes Care Teams Chemical Equipment Controller Relationship Specialty Start Date End Date Anand Noble MD [address] [address] PCP - General Family Medicine 02/10/22
--- OUTSIDE RECORDS SUMMARY | 2025-03-21 08:43 | XMS_ITS | Encounter Summary ---
Author Organization [facility] Address [address] [id number] Care Team Providers Care Put In Beat Adjuster Name Role Phone Anand Noble MD Primary Care Provider Marlyn Saenz LPN Unavailable Unavailable Encounter Details Date Type Department Care Team (Late st Contact Info) Description 12/01/2023 Outside Procedure External Location [address] [place] [address] Americo Trent MD [address] [place] [address] Social History Tobacco Use Types Packs/Day Years Used Date Smoking Tobacco: Former Cigarettes 0.5 39 1 108 - 9937 Passive Smoke Exposure: Never Smokeless Tobacco: Never [...] Date Recorded Patient Health Questionnaire-2 Score 0 11/18/2023 Hunger Vital Sign Answer Date Recorded Within [...] place to sleep or slept in a care home (including now)? No 10/22/2023 CAGE ASSESSMENT Answer [...] drink first t beatrice in the morning (EYE-LIFE COACH) to steady your nerves or to get rid of a hangover? 0 10/21/2023 CAGE Questionnaire Score 0 024 Utilities Answer Date Recorded In the past 12 months has th e electric, gas, oil, or water company threatened to [...] Associated Diagnosis Comments XR CHEST 1 VIEW 12/01/2023 5:00 AM EDT documented in this encounter Results * XR Chest 1 View (12/01/2023 5:00 AM EDT) Anatomical Region Laterality Modality Chest Digital Radiogra phy 12/01/2023 5:00 AM EDT Narrative 12/01/2023 5:42 [place] [address] Name: LYSSA HIGGINS Exam Date: 12/01/2023 : 1940 Age 83 years Gender: F Physician: AMERICO TRENT Facility: [facility] Facility HSV: Inpatient Exam: CHEST PORTABLE FINAL REPORT TECHNIQUE: null CLINICAL HISTORY: pneumonia COMPARISON: null FINDINGS: Exam: 1V chest Comparison: DX/DOC - CHEST PORTABLE - 11/30/2023 12:04 PM EDT Findings: Right PICC line stable. Mediastinum: Stable hqwo-gw-kpjgbpom cardiac silhouette enlargement. Lungs: Fkdqi-sqxvbdr-foyq-left airspace disease without significant change. Pleura: No pneumothorax. Stable suspected small effusions. Bones: No acute pathology. IMPRESSION: Impression: Stable infiltrates versus edema. Authenticated and EASTERN Dictated By: Tatum Garner Transcribed By: Transcribed On: 12/01/2023 5:17 AM Electronically signed by: Tatum Garner 12/01/2023 Thank you for referring LYSSA HIGGINS to [facility]. Legally authenticated by RAHUL HUMPHREYS 2023-12-01 05:17:28 Procedure Note Provider, Generic [place] - 12/01/[address] [address] Name: LYSSA HIGGINS Exam Date: 12/01/2023 : 1940 Age 83 years Gender: F Physician: AMERICO TRENT Facility: [facility] Facility HSV: Inpatient Exam: CHEST PORTABLE FINAL REPORT TECHNIQUE: null CLINICAL HISTORY: pneumonia COMPARISON: null FINDINGS: Exam: 1V chest Comparison: DX/DOC - CHEST PORTABLE - 11/30/2023 12:04 PM EDT Findings: Right PICC line stable. Mediastinum: Stable shyd-oy-emltzhrb cardiac silhouette enlargement. Lungs: Pgnyn-opqfdfz-ubnx-left airspace disease without significant change. Pleura: No pneumothorax. Stable suspected small effusions. Bones: No acute pathology. IMPRESSION: Impression: Stable infiltrates versus edema. Authenticated and EASTERN Dictated By: Tatum Garner Transcribed By: Transcribed On: 12/01/2023 5:17 AM Electronically signed by: Tatum Garner 12/01/2023 Thank you for referring LYSSA HIGGINS to [facility]. Legally authenticated by RAHUL HUMPHREYS 2023-12-01 05:17:28 us Americo Trent MD IMG XR PROCEDURES Final Resul t documented in this encounter Visit Diagnoses Not on filedocumented in this encounter Additional Health Concerns Infection Onset Date Last Indicated Resolved Time COVID-19 Rule-Out 05/06/2024 05/06/2024 05/06/2024 10:52 AM EDT Assessment Noted Time A fall risk assessment has been complete d for the patient 11/18/2023 8:58 AM EDT A Body Mass Index follow-up plan has been documented for the patient 11/20/2023 8:28 AM EDT documented as of this encounter Care Teams Put In Beat Adjuster Relationship Specialty Start Date End Date Anand Noble MD [address] [facility] [address] [place] [address] PCP - General Family Medicine 02/10/22 Marlyn Saenz LPN VALUE[employer] [address] TCM Nurse 01/12/24 02/11/24 documented as of this encounter
--- OUTSIDE RECORDS SUMMARY | 2025-03-21 08:43 | XMS_ITS | Encounter Summary ---
Author Organization [facility] Address [address] [place] [address] Care Team Providers Care Plugging Machine Operator Name Role Phone Anand Noble MD Primary Care Provider Sabiha Garnett LPN Unavailable Unavailab Sabiha Carlos LPN Unavailable Unavailab Marlyn Staples SENIOR HYDROGEOLOGIST Unavailable Unavailable Marlyn Saenz SENIOR HYDROGEOLOGIST Unavailable Unavailable Encounter Details Date Type Department Care Team (Late st Contact Info) Description 08/12/2022 Outside Procedure External Location [address] [place] [id number] Provider, Izaiah Godwinwn Social History Tobacco Use Types Packs/Day Years Used Date Smoking Tobacco: Former Cigarettes 0.5 39 1 598 - 1997 Passive Smoke Exposure: Never Smokeless Tobacco: Never Alcohol Use Standard Drinks/Week Comments Yes 0 (1 standard drink = 0.6 oz pur e alcohol) PHQ-2 Answer Date Recorded Patient Health Questionnaire-2 Score 0 07/09/2022 Comments Unknown Sex and Gender Information Value Date Recorded Sex Assigned at Not on file Legal Sex Female 8:39 PM EDT Gender Identity Not on file Sexual Orientation Not on file documented as of this encounter Plan of Treatment Not on file documented as of this encounter Procedures Procedure Name Priority Date/Time Associated Diagnosis Comments ECHO, ADULT TRANSTHORACIC COMPLETE W/ COLOR AND DOPPLER 08/12/2022 3:01 PM EST documented in this encounter Results * Echo, Adult Transthoracic Complete w/ Color and Doppler (08/12/2022 3:01 PM EST) Anatomical Region Laterality Modality Ultrasound 08/12/2022 3:01 PM EST Narrative 08/12/2022 6:25 PM EST [address] [address] Name: JOSUE HIGGINS Exam Date: 08/12/2022 : 1940 Age 82 Gender: F Physician: JACI TORRES Facility: [facility] Facility HSV: Outpatient Exam: ECHO W SPEC COLOR FLOW Reason for Study: respiratory distress SUMMARY Normal LV size with borderline normal function. The ejection fraction is 50-55%. Stage 1 diastolic dysfunction. Mildly dilated left atrium. No pericardial effusion INTERPRETATION DETAIL Fair quality study. Left ventricle: The left ventricle is normal in size with borderline normal systolic function. The ejection fraction is 50-55%. There is mild concentric hypertrophy. The left ventricular wall motion is normal. Mitral filling indicates stage 1 diastolic dysfunction: impaired relaxation. Left atrium: The left atrium is mildly dilated. LA volume: 56.7mL, LA volume index: 29.1mL/mA . Right ventricle: The right ventricle is normal in size with normal function. Right atrium: The right atrium is normal. Mitral valve: The mitral valve is mildly thickened. There is moderate mitral annular calcification. There is no mitral stenosis. There is trace mitral regurgitation. Aortic valve: The aortic valve is mildly thickened, valve area of 1.44 marketing and development coordinator (Peak grad=15mmHg, Mean grad=8mmHg, LVOT sujit=1.90c m, LVOT TVI=22.7cm, Ao TVI=44.8cm). The dimensionless index is 0.51. AV peak solivmhm=114to/sec. There is trace aortic regurgitation. Tricuspid valve: There is no tricuspid regurgitation, so PA pressure cannot be estimated. Pulmonic valve: The pulmonic valve is normal. Pericardium: The pericardium is normal. Interatrial septum: The interatrial septum is normal. Aorta: The aortic root is normal. Aortic dimensions - Ao M-mode= 2.90cm, Ascending=2.90cm. Vena Cava: The inferior vena cava is normal. MEASUREMENTS Left Ventricle IVSd: 1.28cm (0.6-1.1cm) PWd: 1.28cm (0.6-1.1cm) Mass Marina: 159g LVMI: 82g/mA (>50-95g/m) LVIDd: 3.65cm (3.7-5.6 cm) LVIDdI: 1.87cm/m2 LVIDs: 2.90cm (1.8-4.2 cm) LVIDsI: 1.49cm/m2 RWT: 0.70 ( E to A: 0.60 (0.6-2) E-e prime med: 21.50 E-e prime lat: 21.50 Decel: 452.00ms (168-232ms) Right Ventricle Mid RV Sujit: 2.7cm (2.7-3.3cm) Legally authenticated by OWEN Chowdhury 2022-08-12 18:14:04 Max Valve Velocities AV peak paul: 193cm/sec LVOT: 100.00cm/sec Atria LA AP: 3.5cm LA vol: 56.7mL NANETTE: 29.1mL/mA (16-28ml/m2) Adalberto Tran MD Dictated By: ADALBERTO TRAN Transcribed By: Transcribed On: 08/12/2022 6:14 PM Electronically signed by: ADALBERTO TRAN 08/12/2022 Thank you for referring JOSUE HIGGINS to [facility]. Legally authenticated by OWEN Chowdhury 2022-08-12 18:14:04 Procedure Note Provider, Generic [place] - 08/12/[address] [address] Name: JOSUE HIGGINS Exam Date: 08/12/2022 : 1940 Age 82 Gender: F Physician: JACI TORRES Facility: [facility] Facility HSV: Outpatient Exam: ECHO W SPEC COLOR FLOW Reason for Study: respiratory distress SUMMARY Normal LV size with borderline normal function. The ejection fraction is 50-55%. Stage 1 diastolic dysfunction. Mildly dilated left atrium. No pericardial effusion INTERPRETATION DETAIL Fair quality study. Left ventricle: The left ventricle is normal in size with borderline normal systolic function. The ejection fraction is 50-55%. There is mild concentric hypertrophy. The left ventricular wall motion is normal. Mitral filling indicates stage 1 diastolic dysfunction: impaired relaxation. Left atrium: The left atrium is mildly dilated. LA volume: 56.7mL, LA volume index: 29.1mL/mA . Right ventricle: The right ventricle is normal in size with normal function. Right atrium: The right atrium is normal. Mitral valve: The mitral valve is mildly thickened. There is moderate mitral annular calcification. There is no mitral stenosis. There is trace mitral regurgitation. Aortic valve: The aortic valve is mildly thickened, valve area of 1.44 marketing and development coordinator (Peak grad=15mmHg, Mean grad=8mmHg, LVOT sujit=1.90c m, LVOT TVI=22.7cm, Ao TVI=44.8cm). The dimensionless index is 0.51. AV peak snglqvcg=609gr/sec. There is trace aortic regurgitation. Tricuspid valve: There is no tricuspid regurgitation, so PA pressure cannot be estimated. Pulmonic valve: The pulmonic valve is normal. Pericardium: The pericardium is normal. Interatrial septum: The interatrial septum is normal. Aorta: The aortic root is normal. Aortic dimensions - Ao M-mode= 2.90cm, Ascending=2.90cm. Vena Cava: The inferior vena cava is normal. MEASUREMENTS Left Ventricle IVSd: 1.28cm (0.6-1.1cm) PWd: 1.28cm (0.6-1.1cm) Mass Marina: 159g LVMI: 82g/mA (>50-95g/m) LVIDd: 3.65cm (3.7-5.6 cm) LVIDdI: 1.87cm/m2 LVIDs: 2.90cm (1.8-4.2 cm) LVIDsI: 1.49cm/m2 RWT: 0.70 ( E to A: 0.60 (0.6-2) E-e prime med: 21.50 E-e prime lat: 21.50 Decel: 452.00ms (168-232ms) Right Ventricle Mid RV Sujit: 2.7cm (2.7-3.3cm) Legally authenticated by OWEN Chowdhury 2022-08-12 18:14:04 Max Valve Velocities AV peak paul: 193cm/sec LVOT: 100.00cm/sec Atria LA AP: 3.5cm LA vol: 56.7mL NANETTE: 29.1mL/mA (16-28ml/m2) Adalberto Tran MD Dictated By: ADALBERTO TRAN Transcribed By: Transcribed On: 08/12/2022 6:14 PM Electronically signed by: ADALBERTO TRAN 08/12/2022 Thank you for referring JOSUE HIGGINS to [facility]. Legally authenticated by OWEN Chowdhury 2022-08-12 18:14:04 us Generic [place] Provider CV ECHO PROCEDURES F inal Result documented in this encounter Visit Diagnoses Not on filedocumented in this encounter Additional Health Concerns Infection Onset Date Last Indicated Resolved Time COVID-19 Rule-Out 10/18/2023 10/18/2023 10/18/2023 5:55 AM EST COVID-19 Rule-Out 05/06/2024 05/06/2024 05/06/2024 10:52 AM EDT Assessment Noted Time A fall risk assessment has been complete d for the patient 07/09/2022 12:38 PM EST documented as of this encounter Care Teams Plugging Machine Operator Relationship Specialty Start Date End Date Anand Noble MD [address] [facility] [address] [place] [id number] PCP - General Family Medicine 02/10/22 Sabiha Garnett LPN VALUE-BASED TRANSFORMATION PROGRAM Registered Nurse 08/08/22 09/05/22 Sabiha Garnett LPN VALUE-BASED TRANSFORMATION PROGRAM Licensed Practical Nurse 07/31/23 08/04/23 Marlyn Saenz LPN VALUE[employer] [address] TCM Nurse 09/28/23 10/21/23 Marlyn Saenz LPN VALUE-BASED [place] [address] TCM Nurse 01/12/24 02/11/24 documented as of this encounter
--- OUTSIDE RECORDS SUMMARY | 2025-03-21 08:43 | XMS_ITS | Patient Health Record ---
Author Organization [id number] [facility] Address [address] [place], [place] [id number] Support Name Relationship Address Phone Lyssa Higgins Guarantor Unknown Reason For Referral No Information Plan Of Treatment No Information Insurance Providers Payer Name Payer Address Payer Phone Subscriber Number Group Number Insured Name Patient Relationship to Insured Coverage Start Date Coverage End Date [employer] PPO MEDICARE [address] [address] [place], [place] [id number] [phone] [id number] Lyssa Higgins Self - patient is the insured 3
--- OUTSIDE RECORDS SUMMARY | 2025-03-21 08:43 | XMS_ITS | Encounter Summary ---
Author Organization [facility] Address [address] [place] [address] Care Team Providers Care Shale Miner Blasting Name Role Phone Anand Noble MD Primary Care Provider Marlyn Saenz LPN Unavailable Unavailable Encounter Details Date Type Department Care Team (Late st Contact Info) Description 11/30/2023 Outside Procedure External Location [address] [place] [address] Provider, Izaiah Mechoopda Social History Tobacco Use Types Packs/Day Years Used Date Smoking Tobacco: Former Cigarettes 0.5 39 1 448 - 1997 Passive Smoke Exposure: Never Smokeless [...] place to sleep or slept in a senior care (including now)? No 10/22/2023 CAGE ASSESSMENT Answer [...] drink first t beatrice in the morning (EYE-BAGGAGE SECURITY CHECKER) to steady your nerves or to get rid of a hangover? 0 10/21/2023 CAGE Questionnaire Score 0 024 Utilities Answer Date Recorded In the past 12 months has th e [employer], gas, oil, or water company threatened to [...] Associated Diagnosis Comments XR CHEST 1 VIEW 11/30/2023 7:42 AM EDT documented in this encounter Results * XR Chest 1 View (11/30/2023 7:42 AM EDT) Anatomical Region Laterality Modality Chest Digital Radiogra phy 11/30/2023 7:42 AM EDT Narrative 11/30/2023 9:07 [place] [address] Name: LYSSA HIGGINS Exam Date: 11/30/2023 : 1940 Age 83 years Gender: F Physician: JODEE SWANSON Facility: [facility] Facility HSV: Inpatient Exam: CHEST SPECIAL VIEW CHEST, 3 views HISTORY: Pneumonia COMPARISON: November 27, 2023. FINDINGS: Stable right arm PICC. Interval extubation and removal of enteric tube. Extensive bilateral perihilar consolidative opacities. Small right and moderate left pleural effusions. No pneumothorax. The mediastinum has a normal appearance. The cardiac silhouette is mildly enlarged. IMPRESSION: Persistent extensive bilateral or hilar consolidative opacities. Moderate left and small right pleural effusions. No pneumothorax. Dictated By: Timoteo Marquez Transcribed By: Timoteo Ramos Transcribed On: 11/30/2023 8:43 AM Electronically signed by: Timoteo Marquez 11/30/2023 Thank you for referring LYSSA HIGGINS to [facility]. Legally authenticated by ABIDA RODRIGUEZ 2023-11-30 08:43:48 Procedure Note Provider, Generic Mechoopda - 11/30/2023 [place] [address] Name: LYSSA HIGGINS Exam Date: 11/30/2023 : 1940 Age 83 years Gender: F Physician: JODEE SWANSON Facility: [facility] Facility HSV: Inpatient Exam: CHEST SPECIAL VIEW CHEST, 3 views HISTORY: Pneumonia COMPARISON: November 27, 2023. FINDINGS: Stable right arm PICC. Interval extubation and removal ofenteric tube. Extensive bilateral perihilar consolidative opacities. Small rightand moderate left pleural effusions. No pneumothorax. The mediastinum has a normal appearance. The cardiac silhouette is mildly enlarged. IMPRESSION: Persistent extensive bilateral or hilar consolidativeopacities. Moderate left and small right pleural effusions. No pneumothorax. Dictated By: Timoteo Marquez Transcribed By: Timoteo Ramos Transcribed On: 11/30/2023 8:43 AM Electronically signed by: Timoteo Marquez 11/30/2023 Thank you for referring LYSSA HIGGINS to [facility]. Legally authenticated by ABIDA RODRIGUEZ 2023-11-30 08:43:48 us Generic Mechoopda Provider IMG XR PROCEDURES Fi nal Result [...] documented as of this encounter Care Teams Shale Miner Blasting Relationship Specialty Start Date End Date Anand Noble MD [address] [place] [address] PCP - General Family Medicine 02/10/22 Marlyn Saenz LPN VALUE-BASED [place] [address] TCM Nurse 01/12/24 02/11/24 documented as of this encounter
--- OUTSIDE RECORDS SUMMARY | 2025-03-21 08:43 | XMS_ITS | Encounter Summary ---
Author Organization [facility] Address [address] [id number] Care Team Providers Care Private Branch Exchange Service Advisor Name Role Phone Jey Read MD Primary Care Provider [phone] Anand Noble MD Primary Care Provider Sabiha Garnett LPN Unavailable Unavailab Sabiha Carlos CAR REPAIRER Unavailable Unavailab Marlyn Staples CAR REPAIRER Unavailable Unavailable Marlyn Saenz CAR REPAIRER Unavailable Unavailable Reason for Visit * Reason Comments Med Refill Encounter Details Date Type Department Care Team (Late st Contact Info) Description 08/04/2021 Refill Family and Community [facility] [address] [place] [address] Jey Read MD [address] [place] [address] Hypothyroidism, unspecified; Stage 3 chronic kidney disease (CMS/HCC) Social History Tobacco Use Types Packs/Day Years [...] on file documented as of this encounter Miscellaneous Notes * Telephone Encounter - Carleen Mcdaniel - 08/07/2021 11:27 AM EST Per protocol, levothyroxine, have been approved for 90 day supply with 1 refill(s). The medication refill request(s) have been sent to [facility]. documented in this encounter Plan of Treatment Not on file documented as of this encounter Visit Diagnoses Diagnosis Hypothyroidism, unspecified Stage 3 chronic kidney disease (CMS/HCC) documented in this encounter Additional Health Concerns Infection Onset Date Last Indicated Resolved Time COVID-19 Rule-Out 09/17/2021 09/17/2021 09/17/2021 10:01 PM EST COVID 19 (Confirmed) 09/17/2021 09/17/2021 022 5:23 AM EST COVID-19 Rule-Out 10/18/2023 10/18/2023 10/18/2023 5:55 AM EST COVID-19 Rule-Out 05/06/2024 05/06/2024 05/06/2024 10:52 AM EDT Assessment Noted Time A fall risk assessment has been complete d for the patient 06/04/2021 10:59 AM EDT documented as of this encounter Care Teams Private Branch Exchange Service Advisor Relationship Specialty Start Date End Date Jey Read MD [address] [place] [phone] PCP - General 01/04/21 02/09/22 Anand Noble MD [address] [place] [address] PCP - General Family Medicine 02/10/22 Sabiha Garnett LPN VALUE-BASED TRANSFORMATION PROGRAM Registered Nurse 08/08/22 09/05/22 Sabiha Garnett LPN VALUE-BASED TRANSFORMATION PROGRAM Licensed Practical Nurse 07/31/23 08/04/23 Dany, Marlyn F, CAR REPAIRER VALUE-[place] [address] TCM Nurse 09/28/23 10/21/23 Marlyn Saenz LPN VALUE-BASED [place] [address] TCM Nurse 01/12/24 02/11/24 documented as of this encounter
--- OUTSIDE RECORDS SUMMARY | 2025-03-21 08:43 | XMS_ITS | Encounter Summary ---
Author Organization [facility] Address [address] [place] [address] Care Team Providers Care Hogshead Packer Name Role Phone Anand Noble MD Primary Care Provider Marlyn Saenz LPN Unavailable Unavailable Encounter Details Date Type Department Care Team (Late st Contact Info) Description 12/03/2023 Outside Procedure External Location [address] [place] [address] Provider, Izaiah Elim Ira Social History Tobacco Use Types Packs/Day Years Used Date Smoking Tobacco: Former Cigarettes 0.5 39 1 118 - 1997 Passive Smoke Exposure: Never Smokeless [...] drink first t beatrice in the morning (EYE-SENIOR DIRECTOR INSIGHT) to steady your nerves or to get rid of a hangover? 0 10/21/2023 CAGE Questionnaire Score 0 024 Utilities Answer Date Recorded In the past 12 months has th e [employer], gas, oil, or water company threatened to [...] Associated Diagnosis Comments XR CHEST 1 VIEW 12/03/2023 7:55 PM EDT documented in this encounter Results * XR Chest 1 View (12/03/2023 7:55 PM EDT) Anatomical Region Laterality Modality Chest Digital Radiogra phy 12/03/2023 7:55 PM EDT Narrative 12/04/2023 8:52 AM EDT [address] [address] Name: LYSSA HIGGINS Exam Date: 12/03/2023 : 1940 Age 83 years Gender: F Physician: SMA MONZON [facility] Facility HSV: Outpatient Exam: CHEST PORTABLE SINGLE VIEW CHEST HISTORY: Dyspnea COMPARISON: 12/01/2023 FINDINGS: The cardiomedistinal silhouette is normal. There is emphysema. There are bibasilar opacities with probable pleural effusion. Overall there is improved aeration. No pneumothorax. The osseous structures are unremarkable. IMPRESSION: Improved aeration with bibasilar opacities and probable pleural effusions. Images reviewed, interpreted, and dictated by Susana Farrar D.O. Transcribed by Chris Tipton PA-C Dictated By: SUSANA FARRAR Transcribed By: Susana Farrar Transcribed On: 12/04/2023 8:24 AM Electronically signed by: SUSANA FARRAR 12/04/2023 Thank you for referring LYSSA HIGGINS to [facility]. Legally authenticated by POPE SUSANA Gonzalez 2023-12-04 08:24:30 Procedure Note Provider, Izaiah Elim Ira - 12/04/[address] [address] Name: LYSSA HIGGINS Exam Date: 12/03/2023 : 1940 Age 83 years Gender: F Physician: SAM MONZON Facility: [facility] Facility HSV: Outpatient Exam: CHEST PORTABLE SINGLE VIEW CHEST HISTORY: Dyspnea COMPARISON: 12/01/2023 FINDINGS: The cardiomedistinal silhouette is normal. There is emphysema.There are bibasilar opacities with probable pleural effusion. Overall there is improved aeration. No pneumothorax. The osseous structures areunremarkable. IMPRESSION: Improved aeration with bibasilar opacities and probablepleural effusions. Images reviewed, interpreted, and dictated by Susana Farrar D.O.Transcribed by Chris Tipton PA-C Dictated By: SUSANA FARRAR Transcribed By: Susana Farrar Transcribed On: 12/04/2023 8:24 AM Electronically signed by: SUSANA FARRAR 12/04/2023 Thank you for referring LYSSA HIGGINS to [facility]. Legally authenticated by POPE SUSANA Gonzalez 2023-12-04 08:24:30 us Generic Elim Ira Provider IMG XR PROCEDURES Fi nal [...] documented as of this encounter Care Teams Hogshead Packer Relationship Specialty Start Date End Date Anand Noble MD [address] [place] [address] PCP - General Family Medicine 02/10/22 Marlyn Saenz LPN VALUE-[place] [address] TCM Nurse 01/12/24 02/11/24 documented as of this encounter
--- OUTSIDE RECORDS SUMMARY | 2025-03-21 08:43 | XMS_ITS | Encounter Summary ---
Author Organization [facility] Address [address] [place] [address] Care Team Providers Care Cloth Booker Name Role Phone Anand Noble MD Primary Care Provider Marlyn Saenz LPN Unavailable Unavailable Encounter Details Date Type Department Care Team (Late st Contact Info) Description 12/04/2023 Outside Procedure External Location [address] [place] [address] Provider, Izaiah [place] Social History Tobacco Use Types Packs/Day Years [...] to sleep or slept in a senior living (including now)? No 10/22/2023 CAGE ASSESSMENT Answer [...] drink first t beatrice in the morning (EYE-NAME PLATE STAMPER) to steady your nerves or to get rid of a hangover? 0 10/21/2023 CAGE Questionnaire Score 0 024 Utilities Answer Date Recorded In the past 12 months has th e [employer], gas, oil, or water company threatened to [...] Procedure Name Priority Date/Time Associated Diagnosis Comments VAS US VENOUS DUPLEX LOWER EXTREMITY BILATERAL 12/04/2023 3:17 PM EDT documented in this encounter Results * VAS US Venous Duplex Lower Extremity Bilateral (12/04/2023 3:17 PM EDT) Anatomical Region Laterality Modality Lower Extremities Bilateral Ultrasound 12/04/2023 3:17 PM EDT Narrative 12/04/2023 6:24 PM EDT [address] [address] Name: LYSSA HIGGINS Exam Date: 12/04/2023 : 1940 Age 83 years Gender: F Physician: SHELBY SERRANO Facility: [facility] Facility HSV: Outpatient Exam: VENOUS DUPLEX US LWR EXT BILAT FINAL REPORT TECHNIQUE: Multiple transverse and longitudinal images were performed of the femoral-popliteal deep venous system with augmentation and compression maneuvers. CLINICAL HISTORY: r/o PE FINDINGS: Bilateral lower extremity duplex ultrasound demonstrates normal flow in the deep venous system. There is no abnormal echogenicity to suggest thrombus. There is normal compression and augmentation. IMPRESSION: No evidence of DVT. Authenticated and [facility]ASTERN Dictated By: Hi Barajas Transcribed By: Transcribed On: 12/04/2023 5:54 PM Electronically signed by: Hi Barajas 12/04/2023 Thank you for referring LYSSA HIGGINS to [facility]. Legally authenticated by JACKIE BAKER 2023-12-04 17:54:02 Procedure Note Provider, Izaiah [place] - 12/04/[address] [address] Name: LYSSA HIGGINS Exam Date: 12/04/2023 : 1940 Age 83 years Gender: F Physician: SHELBY SERRANO Facility: [facility] Facility HSV: Outpatient Exam: VENOUS DUPLEX US LWR EXT BILAT FINAL REPORT TECHNIQUE: Multiple transverse and longitudinal images were performed of the femoral-popliteal deep venous system with augmentation and compression maneuvers. CLINICAL HISTORY: r/o PE FINDINGS: Bilateral lower extremity duplex ultrasound demonstrates normal flow in the deep venous system. There is no abnormal echogenicity to suggest thrombus. There is normal compression and augmentation. IMPRESSION: No evidence of DVT. Authenticated and EASTERN Dictated By: Hi Barajas Transcribed By: Transcribed On: 12/04/2023 5:54 PM Electronically signed by: Hi Barajas 12/04/2023 Thank you for referring LYSSA HIGGINS to [facility]. Legally authenticated by JACKIE BAKER 2023-12-04 17:54:02 us Generic [place] Provider CV VASCULAR PROCEDUR ES Final Result documented in this encounter Visit Diagnoses [...] documented as of this encounter Care Teams Cloth Booker Relationship Specialty Start Date End Date Anand Noble MD [address] [facility] [address] [place] [address] PCP - General Family Medicine 02/10/22 Marlyn Saenz LPN VALUE-[place]ED [place] [address] TCM Nurse 01/12/24 02/11/24 documented as of this encounter
--- OUTSIDE RECORDS SUMMARY | 2025-03-21 08:43 | XMS_ITS | Encounter Summary ---
Author Organization [facility] Address [address] [place] [address] Care Team Providers Care Tailing Machine Operator Name Role Phone Jey Read MD Primary Care Provider [phone] Anand Noble MD Primary Care Provider Sabiha Garnett LPN Unavailable Unavailab Sabiha Carlos POWERTRAIN CONTROL SYSTEMS ENGINEER Unavailable Unavailab Marlyn Staples POWERTRAIN CONTROL SYSTEMS ENGINEER Unavailable Unavailable Marlyn Saenz POWERTRAIN CONTROL SYSTEMS ENGINEER Unavailable Unavailable Reason for Visit * Reason Comments Med Refill Encounter Details Date Type Department Care Team (Late st Contact Info) Description 06/04/2021 Refill [facility] [place] 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, unspecified vessel or lesion type, unspecified whether [place] or transplanted heart (CMS/HCC)- Primary documented in this encounter Additional Health Concerns [...] documented as of this encounter Care Teams Tailing Machine Operator Relationship Specialty Start Date End Date Jey Read MD [address] [place] [phone] PCP - General 01/04/21 02/09/22 [place] [address] [place] [address] [address] [place] [address] PCP - General Family Medicine 02/10/22 Sabiha Garnett LPN VALUE-BASED TRANSFORMATION PROGRAM Registered Nurse 08/08/22 09/05/22 Sabiha Garnett LPN VALUE-BASED TRANSFORMATION PROGRAM Licensed Practical Nurse 07/31/23 08/04/23 Marlyn Saenz LPN [employer] [address] TCM Nurse 09/28/23 10/21/23 Marlyn Saenz, DANDRE VALUE-BASED [place] [address] TCM Nurse 01/12/24 02/11/24 documented as of this encounter
--- OUTSIDE RECORDS SUMMARY | 2025-03-21 08:43 | XMS_ITS | Encounter Summary ---
Author Organization [facility] Address [address] [id number] Care Team Providers Care Capability Lead Name Role Phone Jey Read MD Primary Care Provider [phone] Anand Noble MD Primary Care Provider Sabiha Garnett LPN Unavailable Unavailab Sabiha Carlos DEFENSE ATTORNEY Unavailable Unavailab Marlyn Staples DEFENSE ATTORNEY Unavailable Unavailable Marlyn Saenz DEFENSE ATTORNEY Unavailable Unavailable Reason for Visit * Reason Comments Med Refill Encounter Details Date Type Department Care Team (Late st Contact Info) Description 07/14/2021 Refill [facility] [address] [place] [address] Jey Read MD [address] [place] [address] Social History Tobacco Use Types Packs/Day Years Used Date Smoking Tobacco: Former Cigarettes 0.5 39 1 908 - 1997 Smokeless Tobacco: Never Alcohol Use [...] * Telephone Encounter - Carleen Mcdaniel - 07/16/2021 3:24 PM EST Per protocol, wixela, have been approved for 90 day supply with 1 refill(s). The medication refill request(s) have been sent to [facility] pharmacy. documented in this encounter Plan of Treatment Not on file documented as of this encounter Visit Diagnoses Not on filedocumented [...] documented as of this encounter Care Teams Capability Lead Relationship Specialty Start Date End Date Jey Read MD [address] [place] [phone] PCP - General 01/04/21 02/09/22 [place] [address] [place] [address] [address] [place] [address] PCP - General Family Medicine 02/10/22 Sabiha Garnett LPN VALUE-BASED TRANSFORMATION PROGRAM Registered Nurse 08/08/22 09/05/22 Sabiha Garnett LPN VALUE-BASED TRANSFORMATION PROGRAM Licensed Practical Nurse 07/31/23 08/04/23 Marlyn Saenz LPN VALUE-BASED [place] [address] TCM Nurse 09/28/23 10/21/23 Marlyn Saenz LPN VALUE-[place] [address] TCM Nurse 01/12/24 02/11/24 documented as of this encounter
--- OUTSIDE RECORDS SUMMARY | 2025-03-21 08:43 | XMS_ITS | Encounter Summary ---
Author Organization [facility] Address [address] [id number] Care Team Providers Care Bullet Swaging Machine Operator Name Role Phone Jey Read MD Primary Care Provider [phone] Anand Noble MD Primary Care Provider Sabiha Garnett LPN Unavailable Unavailab Sabiha Carlos SUPERVISOR WET POUR Unavailable Unavailab Marlyn Staples SUPERVISOR WET POUR Unavailable Unavailable Marlyn Saenz SUPERVISOR WET POUR Unavailable Unavailable Reason for Visit * Reason Comments Med Refill Encounter Details Date Type Department Care Team (Late st Contact Info) Description 07/04/2021 Refill [facility] [address] [place] [address] Jey Read MD [address] [place] [address] Stage 3 chronic kidney disease (CMS/HCC) Social [...] ED T documented as of this encounter Miscellaneous Notes * Telephone Encounter - Eladia Gilbert MA - 07/09/2021 10:51 AM EST Unable to reach patient to advise * Telephone Encounter - Pastora Dickens MA - 07/08/2021 9:28 AM EST Left message for patient to call office * Telephone Encounter - Kathia White - 07/04/2021 2:46 PM EST Attempted to call, no vm available documented in this encounter Plan of Treatment Not on file documented as of this encounter Visit Diagnoses Diagnosis Stage 3 chronic kidney disease (CMS/HCC) documented [...] documented as of this encounter Care Teams Bullet Swaging Machine Operator Relationship Specialty Start Date End Date Jey Read MD [address] [place] [phone] PCP - General 01/04/21 02/09/22 Anand Noble MD [address] [place] [address] [address] [place] [address] PCP - General Family Medicine 02/10/22 Sabiha Garnett LPN VALUE-BASED TRANSFORMATION PROGRAM Registered Nurse 08/08/22 09/05/22 Sabiha Garnett LPN VALUE-BASED TRANSFORMATION PROGRAM Licensed Practical Nurse 07/31/23 08/04/23 Marlyn Saenz, SUPERVISOR WET POUR VALUE-BASED [place] [address] TCM Nurse 09/28/23 10/21/23 Marlyn Saenz SUPERVISOR WET POUR VALUE-BASED [place] [address] TCM Nurse 01/12/24 02/11/24 documented as of this encounter
--- OUTSIDE RECORDS SUMMARY | 2025-03-21 08:43 | XMS_ITS | Encounter Summary ---
Author Organization [facility] Address [address] [place] [address] Care Team Providers Care Delivery Professional Name Role Phone Anand Noble MD Primary Care Provider Sabiha Garnett LPN Unavailable Unavailab Sabiha Carlos LPN Unavailable Unavailab Marlyn Staples ACID FILLER Unavailable Unavailable Marlyn Saenz ACID FILLER Unavailable Unavailable Encounter Details Date Type Department Care Team (Late st Contact Info) Description 08/12/2022 Outside Procedure External Location [address] [place] [address] Provider, Izaiah [place] Social History Tobacco Use Types Packs/Day Years Used Date Smoking Tobacco: Former Cigarettes 0.5 39 1 338 - 9230 Passive Smoke Exposure: Never Smokeless Tobacco: Never [...] Associated Diagnosis Comments XR CHEST 1 VIEW 08/12/2022 3:00 PM EST documented in this encounter Results * XR Chest 1 View (08/12/2022 3:00 PM EST) Anatomical Region Laterality Modality Chest Digital Radiogra phy 08/12/2022 3:00 PM EST Narrative 08/12/2022 3:31 [place] [address] Name: LYSSA HIGGINS Exam Date: 08/12/2022 : 1940 Age 82 Gender: F Physician: JACI TORRES Facility: [facility] Facility HSV: Outpatient Exam: CHEST PORTABLE Portable chest History: Shortness of breath Findings: Comparison date 08/02/22. There is stable borderline cardiomegaly. There are new infiltrates in the lower lobes, greatest on the left. There are no definite effusions. Impression: Findings suggest bibasilar pneumonia, greatest on the left. Dictated By: IHSAN MADRIGAL Transcribed By: IHSAN MADRIGAL Transcribed On: 08/12/2022 3:19 PM Electronically signed by: IHSAN MADRIGAL 08/12/2022 Thank you for referring LYSSA HIGGINS to [facility]. Legally authenticated by KAITLIN CHAMPAGNE 2022-08-12 15:19:55 Procedure Note Provider, [facility] - 08/12/2022 [place] [address] Name: LYSSA HIGGINS Exam Date: 08/12/2022 : 1940 Age 82 Gender: F Physician: JACI TORRES Facility: [facility] Facility HSV: Outpatient Exam: CHEST PORTABLE Portable chest History: Shortness of breath Findings: Comparison date 08/02/22. There is stable borderlinecardiomegaly. There are new infiltrates in the lower lobes, greatest on the left. Thereare no definite effusions. Impression: Findings suggest bibasilar pneumonia, greatest on the left. Dictated By: IHSAN MADRIGAL Transcribed By: IHSAN MADRIGAL Transcribed On: 08/12/2022 3:19 PM Electronically signed by: IHSAN MADRIGAL 08/12/2022 Thank you for referring LYSSA HIGGINS to [facility]. Legally authenticated by KAITLIN CHAMPAGNE 2022-08-12 15:19:55 Generic [place] Provider IMG XR PROCEDURES Fi nal Result [...] documented as of this encounter Care Teams Delivery Professional Relationship Specialty Start Date End Date Anand Noble MD [address] [facility] [address] [place] [address] PCP - General Family Medicine 02/10/22 Sabiha Garnett LPN VALUE-BASED TRANSFORMATION PROGRAM Registered Nurse 08/08/22 09/05/22 Sabiha Garnett LPN VALUE-BASED TRANSFORMATION PROGRAM Licensed Practical Nurse 07/31/23 08/04/23 Marlyn Saenz LPN VALUE-BASED [place] [address] TCM Nurse 09/28/23 10/21/23 Marlyn Saenz LPN VALUE-BASED [place] [address] TCM Nurse 01/12/24 02/11/24 documented as of this encounter
--- OUTSIDE RECORDS SUMMARY | 2025-03-21 08:43 | XMS_ITS | Encounter Summary ---
Author Organization [facility] Address [address] [place] [address] Care Team Providers Care Carpenter'S Helper Name Role Phone Anand Noble MD Primary Care Provider Marlyn Saenz LPN Unavailable Unavailable Encounter Details Date Type Department Care Team (Late st Contact Info) Description 11/30/2023 Outside Procedure External Location [address] [place] [address] Provider, Izaiah [place] Social History Tobacco Use Types Packs/Day Years Used Date Smoking Tobacco: Former Cigarettes 0.5 39 1 218 - 1997 Passive Smoke Exposure: Never Smokeless [...] place to sleep or slept in a halfway (including now)? No 10/22/2023 CAGE ASSESSMENT Answer [...] drink first t beatrice in the morning (EYE-COLOR PASTE MIXER) to steady your nerves or to get rid of a hangover? 0 10/21/2023 CAGE Questionnaire Score 0 024 Utilities Answer Date Recorded In the past 12 months has th e [employer], gas, oil, or water company threatened to [...] Procedure Name Priority Date/Time Associated Diagnosis Comments CT GUIDED THORACENTESIS LEFT 11/30/2023 10:13 AM EDT documented in this encounter Results * CT Guided Thoracentesis Left (11/30/2023 10:13 AM EDT) Anatomical Region Laterality Modality Chest Left Computed Tomogra phy 11/30/2023 10:1 3 AM EDT Narrative 11/30/2023 12:14 [place] [address] Name: LYSSA HIGGINS Exam Date: 11/30/2023 : 1940 Age 83 years Gender: F Physician: JODEE SWANSON Facility: [facility] Facility HSV: Inpatient Exam: CT THORACENTESIS CT-GUIDED THORACENTESIS HISTORY: Pleural effusion. ATTENDING PHYSICIAN: Dr. Timoteo Ramos. PHYSICIAN FORMULATOR: Clif Tucker PA-C TECHNIQUE: Informed consent was obtained from the patient. The indications and complications were discussed with the patient prior to beginning the procedure. This included, but was not limited to pain, bleeding, infection, and pneumothorax requiring chest tube placement. The left back was then prepped and draped in sterile fashion. 1% Lidocaine was used for local anesthesia. Utilizing CT guidance, a standard thoracentesis needle and sheath were inserted into the pleural space and approximately one liter of pleural fluid was successfully removed without complication. The patient tolerated the procedure well. IMPRESSION:Technically successful CT guided left-sided thoracentesis as above. Films reviewed , interpreted and dictated by Dr. Timoteo Ramos. Transcribed by Clif Tucker PA-C. Dictated By: Timoteo Marquez Transcribed By: Timoteo Ramos Transcribed On: 11/30/2023 11:44 AM Electronically signed by: Timoteo Marquez 11/30/2023 Thank you for referring LYSSA HIGGINS to [facility]. Legally authenticated by ABIDA RODRIGUEZ 2023-11-30 11:44:46 Procedure Note Provider, Izaiah [place] - 11/30/[address] [place] [address] Name: LYSSA HIGGINS Exam Date: 11/30/2023 : 1940 Age 83 years Gender: F Physician: JODEE SWANSON Facility: [facility] Facility HSV: Inpatient Exam: CT THORACENTESIS CT-GUIDED THORACENTESIS HISTORY: Pleural effusion. ATTENDING PHYSICIAN: Dr. Timoteo Ramos. PHYSICIAN FORMULATOR: Clif Tucker PA-C TECHNIQUE: Informed consent was obtained from the patient. The indicationsand complications were discussed with the patient prior to beginning the procedure. This included, but was not limited to pain, bleeding,infection, and pneumothorax requiring chest tube placement. The left back was then prepped and draped in sterile fashion. 1% Lidocaine was used for local anesthesia. Utilizing CT guidance, a standard thoracentesis needle andsheath were inserted into the pleural space and approximately one liter ofpleural fluid was successfully removed without complication. The patient toleratedthe procedure well. IMPRESSION:Technically successful CT guided left-sided thoracentesis asabove. Films reviewed , interpreted and dictated by Dr. Timoteo Ramos. Transcribed by Clif Tucker PA-C. Dictated By: Timoteo Marquez Transcribed By: Timoteo Ramos Transcribed On: 11/30/2023 11:44 AM Electronically signed by: Timoteo Marquez 11/30/2023 Thank you for referring LYSSA HIGGINS to [facility]. Legally authenticated by ABIDA RODRIGUEZ 2023-11-30 11:44:46 Generic [place] Provider IMG CT PROCEDURES Fi nal Result documented in this [...] documented as of this encounter Care Teams Carpenter'S Helper Relationship Specialty Start Date End Date Anand Noble MD [address] [place] [phone] PCP - General Family Medicine 02/10/22 Marlyn Saenz LPN VALUE-BASED [place] [address] TCM Nurse 01/12/24 02/11/24 documented as of this encounter
--- OUTSIDE RECORDS SUMMARY | 2025-03-21 08:43 | XMS_ITS | Encounter Summary ---
Author Organization [facility] Address [address] [id number] Care Team Providers Care Guest Experience Manager Name Role Phone Jey Read MD Primary Care Provider [phone] Anand Noble MD Primary Care Provider Sabiha Garnett LPN Unavailable Unavailab Sabiha Carlos IT INFRASTRUCTURE SPECIALIST Unavailable Unavailab Marlyn Staples IT INFRASTRUCTURE SPECIALIST Unavailable Unavailable Marlyn Saenz IT INFRASTRUCTURE SPECIALIST Unavailable Unavailable Reason for Visit * Reason Comments Med Refill Encounter Details Date Type Department Care Team (Late st Contact Info) Description 06/02/2021 Refill [facility] Community [facility] [address] [place] [address] Jey Read MD [address] [place] [address] Anemia in other chronic diseases classified elsewhere Social History Tobacco Use Types Packs/Day Years [...] as of this encounter Visit Diagnoses Diagnosis Anemia in other chronic diseases classified elsewhere documented in this encounter Additional Health Concerns Infection Onset Date Last Indicated Resolved Time COVID-19 Rule-Out 09/17/2021 09/17/2021 09/17/2021 10:01 PM EST COVID 19 (Confirmed) 09/17/2021 09/17/2021 022 5:23 AM EST COVID-19 Rule-Out 10/18/2023 10/18/2023 10/18/2023 5:55 AM EST COVID-19 Rule-Out 05/06/2024 05/06/2024 05/06/2024 10:52 AM EDT Assessment Noted Time A fall risk assessment has been complete d for the patient 05/02/2021 9:21 AM EDT documented as of this encounter Care Teams Guest Experience Manager Relationship Specialty Start Date End Date Jey Read MD [address] [place] [address] PCP - General 01/04/21 02/09/22 Anand Noble MD [address] [facility] [address] [place] [address] PCP - General Family Medicine 02/10/22 Sabiha Garnett LPN VALUE-BASED TRANSFORMATION PROGRAM Registered Nurse 08/08/22 09/05/22 Sabiha Garnett LPN VALUE-BASED TRANSFORMATION PROGRAM Licensed Practical Nurse 07/31/23 08/04/23 Marlyn Saenz LPN VALUE-BASED [place] [address] TCM Nurse 09/28/23 10/21/23 Marlyn Saenz IT INFRASTRUCTURE SPECIALIST VALUE-BASED [place] [address] TCM Nurse 01/12/24 02/11/24 documented as of this encounter
--- OUTSIDE RECORDS SUMMARY | 2025-03-21 08:43 | XMS_ITS | Encounter Summary ---
Author Organization [facility] Address [address] [id number] Care Team Providers Care Elastic Attacher Coverstitch Name Role Phone Jey Read MD Primary Care Provider [phone] Anand Noble MD Primary Care Provider Sabiha Garnett LPN Unavailable Unavailab Sabiha Carlos COMPENSATION CONSULTANT Unavailable Unavailab Marlyn Staples COMPENSATION CONSULTANT Unavailable Unavailable Marlyn Saenz COMPENSATION CONSULTANT Unavailable Unavailable Reason for Visit * Reason Comments Med Refill Encounter Details Date Type Department Care Team (Late st Contact Info) Description 01/14/2022 Refill Family and Community Medicine [address] [place] [address] Jey Read MD [address] [place] [address] Stage 3 chronic kidney disease (CMS/HCC) Social History Tobacco Use Types Packs/Day Years Used Date Smoking Tobacco: Former Cigarettes 0.5 39 1 598 - 1997 Smokeless Tobacco: Never Alcohol Use [...] encounter Miscellaneous Notes * Telephone Encounter - Eulalia Moscoso PharmD - 01/17/2022 8:15 AM EDT Refill request does not meet protocol. Sending to clinic for review. Additional info: Please review and refill if appropriate. Thanks * Telephone Encounter - Eulalia Moscoso PharmD - 01/17/2022 8:15 AM EDT Per protocol, 1 medication(s), Wixela, has been approved for 90 day supply with 1 refill(s). The medication refill request(s) has been sent to [facility] pharmacy. documented in this encounter Plan of [...] has been complete d for the patient 11/01/2021 1:37 PM EST documented as of this encounter Care Teams Elastic Attacher Coverstitch Relationship Specialty Start Date End Date Jey Read MD [address] [place] [phone] PCP - General 01/04/21 02/09/22 [place] [address] [place] [phone] PCP - General Family Medicine 02/10/22 Sabiha Garnett LPN VALUE-BASED TRANSFORMATION PROGRAM Registered Nurse 08/08/22 09/05/22 Sabiha Garnett, DANDRE VALUE-BASED TRANSFORMATION PROGRAM Licensed Practical Nurse 07/31/23 08/04/23 Marlyn Saenz, DANDRE VALUE-[place] [address] TCM Nurse 09/28/23 10/21/23 Marlyn Saenz LPN VALUE-[place] [address] TCM Nurse 01/12/24 02/11/24 documented as of this encounter
--- OUTSIDE RECORDS SUMMARY | 2025-03-21 08:43 | XMS_ITS | Encounter Summary ---
Author Organization [facility] Address [address] [place] [address] Care Team Providers Care Ship Yard Electrical Person Name Role Phone Anand Noble MD Primary Care Provider Marlyn Saenz LPN Unavailable Unavailable Encounter Details Date Type Department Care Team (Late st Contact Info) Description 11/30/2023 Outside Procedure External Location [address] [place] [address] Provider, Izaiah [place] Social History Tobacco Use Types Packs/Day Years [...] place to sleep or slept in a usp (including now)? No 10/22/2023 CAGE ASSESSMENT Answer [...] drink first t beatrice in the morning (EYE-COAL CHEMIST) to steady your nerves or to get rid of a hangover? 0 10/21/2023 CAGE Questionnaire Score 0 024 Utilities Answer Date Recorded In the past 12 months has th e [employer], gas, oil, or water company threatened to [...] Diagnosis Comments XR CHEST 1 VIEW 11/30/2023 8:42 AM EDT documented in this encounter Results * XR Chest 1 View (11/30/2023 8:42 AM EDT) Anatomical Region Laterality Modality Chest Digital Radiogra phy 11/30/2023 8:42 AM EDT Narrative 11/30/2023 12:45 [place] [address] Name: LYSSA HIGGINS Exam Date: 11/30/2023 : 1940 Age 83 years Gender: F Physician: JODEE SWANSON Facility: [facility] Facility HSV: Inpatient Exam: CHEST PORTABLE CHEST, 1 view HISTORY: Postthoracentesis COMPARISON: November 27, 2023. FINDINGS: Interval decrease left pleural effusion with residual small left pleural effusion. Interval increased right pleural effusion now moderate, previously small. Interval worsening right basilar opacities and improved left basilar opacities. Diffuse interstitial opacities, likely edema. Stable cardiomegaly. Pulmonary vascular congestion. No pneumothorax. Right arm PICC. IMPRESSION: 1. Interval decrease left pleural effusion, residual small left pleural effusion with left basilar opacity. 2. Increased right pleural effusion with worsening right basilar opacity. 3. Cardiomegaly, pulmonary vascular congestion and diffuse interstitial edema. Dictated By: Timoteo Marquez Transcribed By: Timoteo Ramos Transcribed On: 11/30/2023 12:19 PM Electronically signed by: Timoteo Marquez 11/30/2023 Thank you for referring LYSSA HIGGINS to [facility]. Legally authenticated by ABIDA RODRIGUEZ 2023-11-30 12:19:31 Procedure Note Provider, [facility] - 11/30/2023 [facility] [address] [place] [address] Name: LYSSA HIGGINS Exam Date: 11/30/2023 : 1940 Age 83 years Gender: F Physician: JODEE SWANSON Facility: [facility] Facility HSV: Inpatient Exam: CHEST PORTABLE CHEST, 1 view HISTORY: Postthoracentesis COMPARISON: November 27, 2023. FINDINGS: Interval decrease left pleural effusion with residual smallleft pleural effusion. Interval increased right pleural effusion nowmoderate, previously small. Interval worsening right basilar opacities and improvedleft basilar opacities. Diffuse interstitial opacities, likely edema. Stable cardiomegaly. Pulmonary vascular congestion. No pneumothorax. Right arm PICC. IMPRESSION: 1. Interval decrease left pleural effusion, residual small left pleural effusion with left basilar opacity. 2. Increased right pleural effusion with worsening right basilaropacity. 3. Cardiomegaly, pulmonary vascular congestion and diffuse interstitialedema. Dictated By: Timoteo Marquez Transcribed By: Timoteo Ramos Transcribed On: 11/30/2023 12:19 PM Electronically signed by: Timoteo Marqeuz 11/30/2023 Thank you for referring LYSSA HIGGINS to [facility]. Legally authenticated by ABIDA RODRIGUEZ 2023-11-30 12:19:31 Generic [place] Provider IMG XR PROCEDURES Fi nal Result [...] documented as of this encounter Care Teams Ship Yard Electrical Person Relationship Specialty Start Date End Date Anand Noble MD [address] [facility] [address] [place] [phone] PCP - General Family Medicine 02/10/22 Marlyn Saenz LPN VALUE-[employer]ED [place] [address] TCM Nurse 01/12/24 02/11/24 documented as of this encounter
--- OUTSIDE RECORDS SUMMARY | 2025-03-21 08:43 | XMS_ITS | Encounter Summary ---
Author Organization [facility] Address [address] [place] [address] Care Team Providers Care Paint Mixer Machine Name Role Phone Anand Martin MD Primary Care Provider Marlyn Saenz LPN Unavailable Unavailable Encounter Details Date Type Department Care Team (Late st Contact Info) Description 11/04/2023 Outside Procedure External Location [address] [place] [address] Anand Martin MD [address] [facility] [address] [place] [address] Social History Tobacco Use Types Packs/Day Years [...] place to sleep or slept in a jail (including now)? No 10/22/2023 CAGE ASSESSMENT Answer [...] drink first t beatrice in the morning (EYE-WIRE HARNESS DESIGN ENGINEER) to steady your nerves or to get [...] ADULT TRANSTHORACIC COMPLETE W/ COLOR AND DOPPLER 11/04/2023 8:04 AM EDT documented in this encounter Results * Echo, Adult Transthoracic Complete w/ Color and Doppler (11/04/2023 8:04 AM EDT) Anatomical Region Laterality Modality Ultrasound 11/04/2023 8:04 AM EDT Narrative 11/05/2023 10:29 [place] [address] Name: LYSSA HIGGINS Exam Date: 11/04/2023 : 1940 Age 83 years Gender: F Physician: ANAND MARTIN [facility] Facility HSV: Outpatient Exam: ECHO W SPEC COLOR FLOW Reason for Study: dyspnea SUMMARY Normal LV size with normal function. The ejection fraction is 55-60%. Stage 1 diastolic dysfunction. Elevated LV filling pressures. There is mild concentric LVH. Moderately dilated left atrium. There is mild mitral regurgitation. INTERPRETATION DETAIL Good quality study. Left ventricle: The left ventricle is normal in size with normal systolic function. The ejection fraction is 55-60%. There is mild concentric hypertrophy. LV geometry demonstrates concentric hypertrophy. The left ventricular wall motion is normal. The left ventricular filling pattern is consistent with elevated LV filling pressures. Mitral filling indicates stage 1 diastolic dysfunction: impaired relaxation. Left atrium: The left atrium is moderately dilated. LA volume: 85.1mL, LA volume index: 42.1mL/mA. Right ventricle: The right ventricle is normal in size with normal function. Right atrium: The right atrium is normal. Mitral valve: The leaflets are mildly calcified. There is moderate mitral annular calcification. There is no mitral stenosis. There is mild mitral regurgitation. Aortic valve: The aortic valve is mildly thickened. There is mild to moderate aortic stenosis with a valve area of 1.48 taper operator (Peak grad=16mmHg, Mean grad=9mmHg, LVOT ashley=2.00cm, LVOT TVI=22.2cm, Ao TVI=47.1cm). The dimensionless index is 0.47. AV peak xoscxzsr=056gy/sec. Tricuspid valve: The tricuspid valve is normal. There is trace to mild tricuspid regurgitation. PASP= 29 mmHg, RAP=7mmHg. Pulmonic valve: The pulmonic valve is normal. Pericardium: The pericardium is normal. Pulmonary artery: The pulmonary artery is normal. Interatrial septum: The interatrial septum is normal. Aorta: The aorta is normal. The aortic root is normal. Aortic dimensions - Ao M-mode= 2.90cm, Ascending=2.70cm. Vena Cava: The inferior vena cava is normal. MEASUREMENTS Left Ventricle IVSd: 1.20cm (0.6-1.1cm) PWd: 1.20cm (0.6-1.1cm) Mass Marina: 179g LVMI: 89g/mA (>50-95g/m) LVIDd: 4.21cm (3.7-5.6 cm) LVIDdI: 2.08cm/m2 LVIDs: 3.26cm (1.8-4.2 cm) LVIDsI: 1.61cm/m2 RWT: 0.57 (<0.42) E to A: 0.78 (0.6-2) E-e prime med: 34.50 E-e prime lat: 23.00 Decel: 230.00ms (168-232ms) Legally authenticated by OWEN Chowdhury 2023-11-05 10:08:03 Right Ventricle Mid RV Ashley: 2.6cm (2.7-3.3cm) Max Valve Velocities AV peak paul: 199cm/sec LVOT: 98.40cm/sec Pulmonary RAP: 7mmHg PASP: 29mmHg Atria LA AP: 4.0cm LA vol: 85.1mL NANETTE: 42.1mL/mA (16-28ml/m2) Adalberto Tran MD Dictated By: ADALBERTO TRAN Transcribed By: Transcribed On: 11/05/2023 10:08 AM Electronically signed by: ADALBERTO TRAN 11/05/2023 Thank you for referring LYSSA HIGGINS to [facility]. Legally authenticated by OWEN Chowdhury 2023-11-05 10:08:03 Procedure Note Provider, [facility] - 11/05/2023 [place] [address] Name: LYSSA HIGGINS Exam Date: 11/04/2023 : 1940 Age 83 years Gender: F Physician: ANAND MARTIN Facility: [facility] Facility HSV: Outpatient Exam: ECHO W SPEC COLOR FLOW Reason for Study: dyspnea SUMMARY Normal LV size with normal function. The ejection fraction is 55-60%. Stage 1 diastolic dysfunction. Elevated LV filling pressures. There is mild concentric LVH. Moderately dilated left atrium. There is mild mitral regurgitation. INTERPRETATION DETAIL Good quality study. Left ventricle: The left ventricle is normal in size with normal systolic function. The ejection fraction is 55-60%. There is mild concentric hypertrophy. LV geometry demonstrates concentric hypertrophy. The left ventricular wall motion is normal. The left ventricular filling pattern is consistent with elevated LV filling pressures. Mitral filling indicates stage 1 diastolic dysfunction: impaired relaxation. Left atrium: The left atrium is moderately dilated. LA volume: 85.1mL, LA volume index: 42.1mL/mA. Right ventricle: The right ventricle is normal in size with normal function. Right atrium: The right atrium is normal. Mitral valve: The leaflets are mildly calcified. There is moderate mitral annular calcification. There is no mitral stenosis. There is mild mitral regurgitation. Aortic valve: The aortic valve is mildly thickened. There is mild to moderate aortic stenosis with a valve area of 1.48 taper operator (Peak grad=16mmHg, Mean grad=9mmHg, LVOT ashley=2.00cm, LVOT TVI=22.2cm, Ao TVI=47.1cm). The dimensionless index is 0.47. AV peak eepbkwbc=145bw/sec. Tricuspid valve: The tricuspid valve is normal. There is trace to mild tricuspid regurgitation. PASP= 29 mmHg, RAP=7mmHg. Pulmonic valve: The pulmonic valve is normal. Pericardium: The pericardium is normal. Pulmonary artery: The pulmonary artery is normal. Interatrial septum: The interatrial septum is normal. Aorta: The aorta is normal. The aortic root is normal. Aortic dimensions - Ao M-mode= 2.90cm, Ascending=2.70cm. Vena Cava: The inferior vena cava is normal. MEASUREMENTS Left Ventricle IVSd: 1.20cm (0.6-1.1cm) PWd: 1.20cm (0.6-1.1cm) Mass Marina: 179g LVMI: 89g/mA (>50-95g/m) LVIDd: 4.21cm (3.7-5.6 cm) LVIDdI: 2.08cm/m2 LVIDs: 3.26cm (1.8-4.2 cm) LVIDsI: 1.61cm/m2 RWT: 0.57 (<0.42) E to A: 0.78 (0.6-2) E-e prime med: 34.50 E-e prime lat: 23.00 Decel: 230.00ms (168-232ms) Legally authenticated by OWEN Chowdhury 2023-11-05 10:08:03 Right Ventricle Mid RV Ashley: 2.6cm (2.7-3.3cm) Max Valve Velocities AV peak paul: 199cm/sec LVOT: 98.40cm/sec Pulmonary RAP: 7mmHg PASP: 29mmHg Atria LA AP: 4.0cm LA vol: 85.1mL NANETTE: 42.1mL/mA (16-28ml/m2) Adalberto Tran MD Dictated By: ADALBERTO TRAN Transcribed By: Transcribed On: 11/05/2023 10:08 AM Electronically signed by: ADALBERTO TRAN 11/05/2023 Thank you for referring LYSSA HIGGINS to [facility]. Legally authenticated by OWEN Chowdhury 2023-11-05 10:08:03 Anand Martin MD CV ECHO PROCEDURES Shu l Result documented in this encounter Visit Diagnoses [...] documented as of this encounter Care Teams Paint Mixer Machine Relationship Specialty Start Date End Date Anand Martin MD [address] [place] [address] PCP - General Family Medicine 02/10/22 Marlyn Saenz LPN VALUE-BASED [place] [address] TCM Nurse 01/12/24 02/11/24 documented as of this encounter
--- OUTSIDE RECORDS SUMMARY | 2025-03-21 08:43 | XMS_ITS | Encounter Summary ---
Author Organization [facility] Address [address] [place] [address] Care Team Providers Care Social Media Marketing Analyst Name Role Phone Anand Noble MD Primary Care Provider Marlyn Saenz LPN Unavailable Unavailable Encounter Details Date Type Department Care Team (Late st Contact Info) Description 12/04/2023 Outside Procedure External Location [address] [place] [address] Provider, Izaiah [place] Social History Tobacco Use Types Packs/Day Years [...] drink first t beatrice in the morning (EYE-CARBON ACCOUNTANT) to steady your nerves or to get rid of a hangover? 0 10/21/2023 CAGE Questionnaire Score 0 024 Utilities Answer Date Recorded In the past 12 months has th e [employer], gas, oil, or water company threatened to [...] Procedure Name Priority Date/Time Associated Diagnosis Comments NM LUNG VENTILATION AND PERFUSION SCAN 12/04/2023 8:56 AM EDT documented in this encounter Results * NM Lung Ventilation and Perfusion Scan (12/04/2023 8:56 AM EDT) Anatomical Region Laterality Modality Chest Nuclear Medicine 12/04/2023 8:56 AM EDT Narrative 12/04/2023 4:18 [place] [address] Name: LYSSA HIGGINS Exam Date: 12/04/2023 : 1940 Age 83 years Gender: F Physician: SHELBY SERRANO Facility: [facility] Facility HSV: Outpatient Exam: PULM VENT/PERF IMAG Ventilation/perfusion scan. HISTORY: Shortness of breath. PROCEDURE: The patient was injected with 4.8 mCi of Tc 99m MAA. Aerosolized DTPA at 30.8 mCi was utilized for ventilation. Images over the lungs were obtained in multiple projections. FINDINGS: Overall, perfusion is superior to ventilation. There are no mismatched defects to suggest PE. Chest x-ray shows bilateral pulmonary opacities and effusions. IMPRESSION: Low probability for PE. Films reviewed , interpreted and dictated by Transcribed by Clif Tucker PA-C. Dictated By: SUSANA FARRAR Transcribed By: Susana Farrar Transcribed On: 12/04/2023 3:51 PM Electronically signed by: SUSANA FARRAR 12/04/2023 Thank you for referring LYSSA HIGGINS to [facility]. Legally authenticated by POPE SUSANA Gonzalez 2023-12-04 15:51:03 Procedure Note Provider, [facility] - 12/04/2023 [place] [address] Name: LYSSA HIGGINS Exam Date: 12/04/2023 : 1940 Age 83 years Gender: F Physician: SHELBY SERRANO Facility: [facility] Facility HSV: Outpatient Exam: PULM VENT/PERF IMAG Ventilation/perfusion scan. HISTORY: Shortness of breath. PROCEDURE: The patient was injected with 4.8 mCi of Tc 99m MAA.Aerosolized DTPA at 30.8 mCi was utilized for ventilation. Images over the lungswere obtained in multiple projections. FINDINGS: Overall, perfusion is superior to ventilation. There are no mismatched defects to suggest PE. Chest x-ray shows bilateral pulmonary opacities and effusions. IMPRESSION: Low probability for PE. Films reviewed , interpreted and dictated by Transcribed by Clif Tucker PA-C. Dictated By: SUSANA FARRAR Transcribed By: Susana Farrar Transcribed On: 12/04/2023 3:51 PM Electronically signed by: SUSANA FARRAR 12/04/2023 Thank you for referring LYSSA HIGGINS to [facility]. Legally authenticated by POPE SUSANA Gonzalez 2023-12-04 15:51:03 Generic [facility] [facility] Provider IMG NM PROCEDURES Fi nal Result documented in this [...] documented as of this encounter Care Teams Social Media Marketing Analyst Relationship Specialty Start Date End Date Anand Noble MD [address] [facility] [address] [place] [address] PCP - General Family Medicine 02/10/22 Marlyn Saenz LPN VALUE-BASED TRANSFORMATION PROGRAM [place] [id number] TCM Nurse 01/12/24 02/11/24 documented as of this encounter
--- OUTSIDE RECORDS SUMMARY | 2025-03-21 08:44 | XMS_ITS | Encounter Summary ---
Author Organization [facility] Address [address] [place] [address] Care Team Providers Care Fermenter Wine Name Role Phone Anand Noble MD Primary Care Provider Marlyn Saenz LPN Unavailable Unavailable Encounter Details Date Type Department Care Team (Late st Contact Info) Description 11/25/2023 Outside Procedure External Location [address] [place] [address] Provider, Izaiah [place] Social History Tobacco Use Types Packs/Day Years Used Date Smoking Tobacco: Former Cigarettes 0.5 39 1 878 - 1997 Passive Smoke Exposure: Never Smokeless [...] place to sleep or slept in a snf (including now)? No 10/22/2023 CAGE ASSESSMENT Answer [...] drink first t beatrice in the morning (EYE-OFFSHORE WIND OPERATIONS MANAGER) to steady your nerves or to get rid of a hangover? 0 10/21/2023 CAGE Questionnaire Score 0 024 Utilities Answer Date Recorded In the past 12 months has th e [employer], gas, oil, or water company threatened to [...] Name Priority Date/Time Associated Diagnosis Comments CT CHEST LIMITED HISTORICAL 11/25/2023 7:30 AM EDT documented in this encounter Results * CT Chest Limited Historical (11/25/2023 7:30 AM EDT) Anatomical Region Laterality Modality Chest Computed Tomogra phy 11/25/2023 7:30 AM EDT Narrative 11/25/2023 9:38 [place] [address] Name: LYSSA HIGGINS Exam Date: 11/25/2023 : 1940 Age 83 years Gender: F Physician: SAM MONZON Facility: [facility] Facility HSV: Outpatient Exam: CT CHEST W/O CT CHEST without contrast HISTORY: Shortness of breath COMPARISON: 08/03/2022. TECHNIQUE: Axial CT without IV contrast administration. FINDINGS: There is cardiomegaly. There is a small pericardial effusion. There is extensive multivessel coronary artery calcifications noted. The thoracic aorta is normal caliber. There is moderate emphysematous change. There are diffuse interstitial opacities. There are small to moderate bilateral pleural effusions with small bibasilar consolidative opacities. There is no pneumothorax. There are degenerative changes of the spine noted. No adenopathy or mass lesion is present . IMPRESSION: Diffuse interstitial opacities may reflect pulmonary edema or atypical pneumonia in the appropriate clinical setting. Small to moderate bilateral pleural effusions with bibasilar small consolidative opacities may reflect pneumonia. This study was performed using automated techniques to achieve radiation exposure as low as reasonably achievable Images reviewed, interpreted, and dictated by Dr. Timoteo Ramos. Transcribed by Rahul Hairston PA-C Dictated By: Timoteo Marquez Transcribed By: Timoteo Ramos Transcribed On: 11/25/2023 9:11 AM Electronically signed by: Timoteo Marquez 11/25/2023 Thank you for referring LYSSA HIGGINS to [facility]. Legally authenticated by ABIDA RODRIGUEZ 2023-11-25 09:11:02 Procedure Note Provider, Izaiah [place] - 11/25/2023 [facility] [address] [place] [address] Name: LYSSA HIGGINS Exam Date: 11/25/2023 : 1940 Age 83 years Gender: F Physician: SAM MONZON Facility: [facility] Facility HSV: Outpatient Exam: CT CHEST W/O CT CHEST without contrast HISTORY: Shortness of breath COMPARISON: 08/03/2022. TECHNIQUE: Axial CT without IV contrast administration. FINDINGS: There is cardiomegaly. There is a small pericardial effusion.There is extensive multivessel coronary artery calcifications noted. Thethoracic aorta is normal caliber. There is moderate emphysematous change. Thereare diffuse interstitial opacities. There are small to moderate bilateralpleural effusions with small bibasilar consolidative opacities. There is no pneumothorax. There are degenerative changes of the spine noted. Noadenopathy or mass lesion is present . IMPRESSION: Diffuse interstitial opacities may reflect pulmonary edema or atypical pneumonia in the appropriate clinical setting. Small to moderate bilateral pleural effusions with bibasilar small consolidative opacities may reflect pneumonia. This study was performed using automated techniques to achieve radiation exposure as low as reasonably achievable Images reviewed, interpreted, and dictated by Dr. Timoteo Ramos. Transcribed by Rahul Hairston PA-C Dictated By: Timoteo Marquez Transcribed By: Timoteo Ramos Transcribed On: 11/25/2023 9:11 AM Electronically signed by: Timoteo Marquez 11/25/2023 Thank you for referring LYSSA HIGGINS to [facility]. Legally authenticated by ABIDA RODRIGUEZ 2023-11-25 09:11:02 Generic [place] Provider IMG CT PROCEDURES Fi nal Result [...] documented as of this encounter Care Teams Fermenter Wine Relationship Specialty Start Date End Date Anand Noble MD [address] [facility] [address] [place] [address] PCP - General Family Medicine 02/10/22 Marlyn Saenz LPN VALUE-BASED [place] [address] TCM Nurse 01/12/24 02/11/24 documented as of this encounter
--- OUTSIDE RECORDS SUMMARY | 2025-03-21 08:44 | XMS_ITS | Encounter Summary ---
Author Organization [facility] Address [address] [place] [address] Care Team Providers Care Manager Packaging Name Role Phone Anand Noble MD Primary Care Provider Marlyn Saenz LPN Unavailable Unavailable Encounter Details Date Type Department Care Team (Late st Contact Info) Description 11/25/2023 Outside Procedure External Location [address] [place] [address] Provider, Izaiah [place] Social History Tobacco Use Types Packs/Day Years Used Date Smoking Tobacco: Former Cigarettes 0.5 39 1 088 - 1997 Passive Smoke Exposure: Never Smokeless [...] place to sleep or slept in a prison (including now)? No 10/22/2023 CAGE ASSESSMENT Answer [...] drink first t beatrice in the morning (EYE-CEMENT LOADER) to steady your nerves or to get rid of a hangover? 0 10/21/2023 CAGE Questionnaire Score 0 024 Utilities Answer Date Recorded In the past 12 months has th e [employer], gas, oil, or water company threatened to [...] Associated Diagnosis Comments XR CHEST 1 VIEW 11/25/2023 6:51 AM EDT documented in this encounter Results * XR Chest 1 View (11/25/2023 6:51 AM EDT) Anatomical Region Laterality Modality Chest Digital Radiogra phy 11/25/2023 6:51 AM EDT Narrative 11/25/2023 9:17 AM EDT [address] [address] Name: LYSSA HIGGINS Exam Date: 11/25/2023 : 1940 Age 83 years Gender: F Physician: JACI TORRES Facility: [facility] Facility HSV: Outpatient Exam: CHEST PORTABLE CHEST, 1 view HISTORY: Chest pain protocol COMPARISON: November 03, 2023. FINDINGS: Emphysema. Diffuse bilateral bronchial wall thickening/interstitial opacities with left greater than right basilar infiltrates. There is no evidence of pneumothorax. Small to moderate left and trace to small right pleural effusions. The mediastinum has a normal appearance. The cardiac silhouette is normal in size. IMPRESSION: 1. Bilateral pleural effusions with bibasilar opacities may reflect atelectasis or pneumonia in the appropriate clinical setting. 2. Diffuse interstitial opacities may reflect pulmonary edema versus atypical infectious process in the appropriate clinical setting. Dictated By: Timoteo Marquez Transcribed By: Timoteo Ramos Transcribed On: 11/25/2023 8:45 AM Electronically signed by: Timoteo Marquez 11/25/2023 Thank you for referring [facility] Legally authenticated by ABIDA RODRIGUEZ 2023-11-25 08:45:16 Procedure Note Provider, [facility] - 11/25/2023 [address] [place] [address] Name: LYSSA HIGGINS Exam Date: 11/25/2023 : 1940 Age 83 years Gender: F Physician: JACI TORRES Facility: [facility] Facility HSV: Outpatient Exam: CHEST PORTABLE CHEST, 1 view HISTORY: Chest pain protocol COMPARISON: November 03, 2023. FINDINGS: Emphysema. Diffuse bilateral bronchial wallthickening/interstitial opacities with left greater than right basilar infiltrates. There is no evidence of pneumothorax. Small to moderate left and traceto small right pleural effusions. The mediastinum has a normal appearance. The cardiac silhouette is normal in size. IMPRESSION: 1. Bilateral pleural effusions with bibasilar opacities may reflect atelectasis or pneumonia in the appropriate clinical setting. 2. Diffuse interstitial opacities may reflect pulmonary edema versusatypical infectious process in the appropriate clinical setting. Dictated By: Timoteo Marquez Transcribed By: Timoteo Ramos Transcribed On: 11/25/2023 8:45 AM Electronically signed by: Timoteo Marquez 11/25/2023 Thank you for referring LYSSA HIGGINS to [facility]. Legally authenticated by ABIDA RODRIGUEZ 2023-11-25 08:45:16 Generic [place] Provider IMG XR PROCEDURES Fi nal Result [...] documented as of this encounter Care Teams Manager Packaging Relationship Specialty [place] [address] [place] [address] [address] [place] [address] PCP - General Family Medicine 02/10/22 Marlyn Saenz LPN VALUE[employer] [place] [address] TCM Nurse 01/12/24 02/11/24 documented as of this encounter
--- OUTSIDE RECORDS SUMMARY | 2025-03-21 08:44 | XMS_ITS | Encounter Summary ---
Author Organization [facility] Address [address] [place] [address] Care Team Providers Care Infantry Operations Specialist Name Role Phone Anand Noble MD Primary Care Provider Marlyn Saenz LPN Unavailable Unavailable Encounter Details Date Type Department Care Team (Late st Contact Info) Description 11/27/2023 Outside Procedure External Location [address] [place] [address] Provider, Izaiah [place] Social History Tobacco Use Types Packs/Day Years Used Date Smoking Tobacco: Former Cigarettes 0.5 39 1 538 - 1997 Passive Smoke Exposure: Never Smokeless [...] place to sleep or slept in a intermediate (including now)? No 10/22/2023 CAGE ASSESSMENT Answer [...] drink first t beatrice in the morning (EYE-PRINT OPERATOR) to steady your nerves or to get rid of a hangover? 0 10/21/2023 CAGE Questionnaire Score 0 024 Utilities Answer Date Recorded In the past 12 months has th e [employer], gas, oil, or water company threatened to [...] Associated Diagnosis Comments XR CHEST 1 VIEW 11/27/2023 7:27 AM EDT documented in this encounter Results * XR Chest 1 View (11/27/2023 7:27 AM EDT) Anatomical Region Laterality Modality Chest Digital Radiogra phy 11/27/2023 7:27 AM EDT Narrative 11/27/2023 9:13 [place] [address] Name: LYSSA HIGGINS Exam Date: 11/27/2023 : 1940 Age 83 years Gender: F Physician: JODEE SWANSON Facility: [facility] Facility HSV: Inpatient Exam: CHEST PORTABLE CHEST, 1 view HISTORY: Chest pain COMPARISON: Yesterday. FINDINGS: Interval intubation with ET tube terminating approximately 6 mm from the marah. Interval increased diffuse interstitial and extensive perihilar and bibasilar alveolar airspace opacities. There is possibly increased moderate bilateral pleural effusions. No pneumothorax. The mediastinum has a normal appearance. The cardiac silhouette is partially obscured. Pulmonary vascular congestion. IMPRESSION: 1. Interval intubation with ET tube terminating less than a centimeter from the marah. Consider retracting by approximately 2 cm. 2. Worsening diffuse bilateral interstitial and alveolar airspace disease. Likely increased bilateral pleural effusions. Dictated By: Timoteo Marquez Transcribed By: Timoteo Ramos Transcribed On: 11/27/2023 8:45 AM Electronically signed by: Timoteo Marquez 11/27/2023 Thank you for referring LYSSA HIGGINS to [facility]. Legally authenticated by ABIDA RODRIGUEZ 2023-11-27 08:45:01 Procedure Note Provider, [facility] - 11/27/2023 [facility] [address] [place] [address] Name: LYSSA HIGGINS Exam Date: 11/27/2023 : 1940 Age 83 years Gender: F Physician: JODEE SWANSON Facility: [facility] Facility HSV: Inpatient Exam: CHEST PORTABLE CHEST, 1 view HISTORY: Chest pain COMPARISON: Yesterday. FINDINGS: Interval intubation with ET tube terminating approximately 6 mmfrom the marah. Interval increased diffuse interstitial and extensiveperihilar and bibasilar alveolar airspace opacities. There is possibly increased moderate bilateral pleural effusions. No pneumothorax. The mediastinum has a normal appearance. The cardiac silhouette is partially obscured. Pulmonary vascularcongestion. IMPRESSION: 1. Interval intubation with ET tube terminating less than a centimeterfrom the marah. Consider retracting by approximately 2 cm. 2. Worsening diffuse bilateral interstitial and alveolar airspacedisease. Likely increased bilateral pleural effusions. Dictated By: Timoteo Marquez Transcribed By: Timoteo Ramos Transcribed On: 11/27/2023 8:45 AM Electronically signed by: Timoteo Marquez 11/27/2023 Thank you for referring LYSSA HIGGINS to [facility]. Legally authenticated by ABIDA RODRIGUEZ 2023-11-27 08:45:01 Generic [place] Provider IMG XR PROCEDURES Fi nal Result [...] documented as of this encounter Care Teams Infantry Operations Specialist Relationship Specialty Start Date End Date Anand Noble MD [address] [place] [address] PCP - General Family Medicine 02/10/22 Marlyn Saenz LPN VALUE-BASED [place] [address] TCM Nurse 01/12/24 02/11/24 documented as of this encounter
--- OUTSIDE RECORDS SUMMARY | 2025-03-21 08:44 | XMS_ITS | Encounter Summary ---
Author Organization [facility] Address [address] [place] [address] Care Team Providers Care Skip Locator Name Role Phone Anand Noble MD Primary Care Provider Sabiha Garnett LPN Unavailable Unavailab Sabiha [place] LPN Unavailable Unavailab Marlyn Staples SUPERINTENDENT CAR CONSTRUCTION Unavailable Unavailable Marlyn Saenz SUPERINTENDENT CAR CONSTRUCTION Unavailable Unavailable Encounter Details Date Type Department Care Team (Late st Contact Info) Description 07/11/2022 Outside Procedure External Location [address] [place] [id number] Provider, Izaiah [place] Social History Tobacco Use Types Packs/Day Years Used Date Smoking Tobacco: Former Cigarettes 0.5 39 1 558 - 1997 Passive Smoke Exposure: Never Smokeless [...] suspected to have Coronavirus/COVID-19? No / Unsure 07/09/2022 12:31 PM EST documented as of this encounter Plan of Treatment Not on file documented as of this encounter Procedures Procedure Name Priority Date/Time Associated Diagnosis Comments VAS US VENOUS DUPLEX LOWER EXTREMITY UNILATERAL 07/11/2022 12:12 PM EST documented in this encounter Results * VAS US Venous Duplex Lower Extremity Unilateral (07/11/2022 12:12 PM EST) Anatomical Region Laterality Modality Lower Extremities Ultrasound 07/11/2022 12:1 2 PM EST Narrative 07/11/2022 5:39 [place] [address] Name: LYSSA HGIGINS Exam Date: 07/11/2022 : 1940 Age 81 Gender: F Physician: AARON SIMMONS Facility: [facility] Facility HSV: Outpatient Exam: VENOUS DUPLEX US LWR LT EXT DUPLEX VENOUS SONOGRAPHY OF THE LEFT LOWER EXTREMITY HISTORY: Left leg pain and swelling FINDINGS: Multiple transverse and longitudinal scans were performed of the femoropopliteal deep venous system, with augmentation and compression maneuvers. Normal phasic flow was noted in the visualized deep venous system. No intraluminal increased echogenicity is noted to suggest thrombus. There is normal compression and augmentation of the venous structures. No abnormal venous collaterals are seen. Note is made the anterior tibial vein was not definitively identified. Edema is noted in the lower extremity. IMPRESSION: No evidence of deep venous thrombosis of the left lower extremity. Dictated By: SUSANA FARRAR Transcribed By: Susana Farrar Transcribed On: 07/11/2022 5:29 PM Electronically signed by: SUSANA FARRAR 07/11/2022 Thank you for referring LYSSA HIGGINS to [facility]. Legally authenticated by POPE SUSANA Gonzalez 2022-07-11 17:29:24 Procedure Note Provider, [facility] [place] - 07/11/2022 [place] [address] Name: LYSSA HIGGINS Exam Date: 07/11/2022 : 1940 Age 81 Gender: F Physician: AARON SIMMONS Facility: [facility] Facility HSV: Outpatient Exam: VENOUS DUPLEX US LWR LT EXT DUPLEX VENOUS SONOGRAPHY OF THE LEFT LOWER EXTREMITY HISTORY: Left leg pain and swelling FINDINGS: Multiple transverse and longitudinal scans were performed ofthe femoropopliteal deep venous system, with augmentation and compression maneuvers. Normal phasic flow was noted in the visualized deep venous system. No intraluminal increased echogenicity is noted to suggest thrombus. Thereis normal compression and augmentation of the venous structures. Noabnormal venous collaterals are seen. Note is made the anterior tibial vein was not definitively identified.Edema is noted in the lower extremity. IMPRESSION: No evidence of deep venous thrombosis of the left lowerextremity. Dictated By: SUSANA FARRAR Transcribed By: Susana Farrar Transcribed On: 07/11/2022 5:29 PM Electronically signed by: SUSANA FARRAR 07/11/2022 Thank you for referring LYSSA HIGGINS to [facility]. Legally authenticated by POPE SUSANA Gonzalez 2022-07-11 17:29:24 us Generic [place] Provider CV VASCULAR PROCEDUR ES Final Result [...] documented as of this encounter Care Teams Skip Locator Relationship Specialty Start Date End Date Anand Noble MD [address] [address] PCP - General Family Medicine 02/10/22 Sabiha Garnett LPN VALUE-BASED TRANSFORMATION PROGRAM Registered Nurse 08/08/22 09/05/22 Sabiha Garnett LPN VALUE-BASED TRANSFORMATION PROGRAM Licensed Practical Nurse 07/31/23 08/04/23 Marlyn Saenz LPN VALUE-BASED [place] [address] TCM Nurse 09/28/23 10/21/23 Marlyn Saenz LPN VALUE-BASED [place] [address] TCM Nurse 01/12/24 02/11/24 documented as of this encounter
--- OUTSIDE RECORDS SUMMARY | 2025-03-21 08:44 | XMS_ITS | Encounter Summary ---
Author Organization [facility] Address [address] [id number] Care Team Providers Care Production Service Manager Name Role Phone Jey Read MD Primary Care Provider [phone] Anand Noble MD Primary Care Provider Sabiha Garnett LPN Unavailable Unavailab Sabiha Carlos AIR INTELLIGENCE SPECIALIST Unavailable Unavailab Marlyn Staples AIR INTELLIGENCE SPECIALIST Unavailable Unavailable Marlyn Saenz AIR INTELLIGENCE SPECIALIST Unavailable Unavailable Reason for Visit * Reason Onset Date Comments Med Refill Med Refill 05/06/2021 [facility] - Patient Message 04/24/2021 Med Refill 05/07/2021 Med Refill 05/08/2021 Encounter Details Date Type Department Care Team (Late st Contact Info) Description 04/24/2021 Refill Family and Community Medicine [address] [place] [address] Jey Read MD [address] [place] [address] Stage 3 chronic kidney disease (CMS/HCC) Social History Tobacco Use Types Packs/Day Years Used Date Smoking Tobacco: Former Cigarettes 0.5 39 1 958 - 1996 Smokeless Tobacco: Never Alcohol Use Standard Drinks/Week [...] have Coronavirus / COVID-19? Unable to assess 04/19/2021 10:56 AM EDT documented as of this encounter Miscellaneous Notes * Telephone Encounter - Vanessa Cote APRN - 05/08/2021 3:47 PM EDT If not better needs appt to check on lungs * Telephone Encounter - Jey Read MD - 05/08/2021 3:24 PM EDT Would recommend sending message to provider that saw patient for recent illness. * Telephone Encounter - Dot Thomson - 05/07/2021 2:35 PM EDT Patient Phone Message Reason for Call: pt is still coughing and wheezing and wants t know f something stronger can be called in Best contact number and optimal time of day to reach caller: Note: Please do not reply to this message. Follow-up communication and further actions as a result of this message need to be communicated with the patient directly, if the patient is not active onMyChart. If the patient is active on MyChart, they will receive notification of the communication/outcome via FullStoryt. * Telephone Encounter - Dot Thomson - 05/06/2021 4:03 PM EDT Patient Phone Message Reason for Call: pt is asking for a call back from a nurse. She was told that if no better by todayto call back. She says needs more meds. Please call Best contact number and optimal time of day to reach caller:[phone] Note: Please do not reply to this message. Follow-up communication and further actions as a result of this message need to be communicated with the patient directly, if the patient is not active onMyChart. If the patient is active on MyChart, they will receive notification of the communication/outcome via MyChart. * Telephone Encounter - Nhung Lackey PharmD - 04/24/2021 7:54 AM EDT Refill request does not meet protocol. Sending to clinic triage for further review. Additional info: Medication not on approved protocol documented in this encounter Plan of Treatment Not on file documented as of this encounter Visit Diagnoses Diagnosis Stage 3 chronic kidney disease (CMS/HCC) documented in this encounter Additional Health Concerns Infection Onset Date Last Indicated Resolved Time COVID-19 Rule-Out 05/02/2021 05/02/2021 05/02/2021 6:12 PM EDT COVID-19 Rule-Out 09/17/2021 09/17/2021 09/17/2021 10:01 PM EST COVID 19 (Confirmed) 09/17/2021 09/17/2021 022 5:23 AM EST COVID-19 Rule-Out 10/18/2023 10/18/2023 10/18/2023 5:55 AM EST COVID-19 Rule-Out 05/06/2024 05/06/2024 05/06/2024 10:52 AM EDT documented as of this encounter Care Teams Production Service Manager Relationship Specialty Start Date End Date Jey Read MD [address] [place] [address] PCP - General 01/04/21 02/09/22 Aannd Noble MD [address] [place] [address] PCP - General Family Medicine 02/10/22 Sabiha Garnett LPN VALUE-BASED TRANSFORMATION PROGRAM Registered Nurse 08/08/22 09/05/22 Sabiha Garnett LPN VALUE-BASED TRANSFORMATION PROGRAM Licensed Practical Nurse 07/31/23 08/04/23 Marlyn Saenz, DANDRE VALUE-[place]ED [place] [address] TCM Nurse 09/28/23 10/21/23 Marlyn Saenz AIR INTELLIGENCE SPECIALIST VALUE-[place]ED [place] [address] TCM Nurse 01/12/24 02/11/24 documented as of this encounter
--- OUTSIDE RECORDS SUMMARY | 2025-03-21 08:44 | XMS_ITS | Encounter Summary ---
Author Organization [facility] Address [address] [place] [address] Care Team Providers Care Faro Dealer Name Role Phone Anand Noble MD Primary Care Provider Sabiha Garnett MATH AND SCIENCES DEPARTMENT CHAIR Unavailable Unavailab Marlyn Staples LPN Unavailable Unavailable Marlyn Saenz LPN Unavailable Unavailable Encounter Details Date Type Department Care Team (Late st Contact Info) Description 12/20/2022 Outside Procedure External Location [address] [place] [address] Provider, Izaiah [place] Social History Tobacco Use Types Packs/Day Years Used Date Smoking Tobacco: Former Cigarettes 0.5 39 1 958 - 1997 Passive Smoke Exposure: Never Smokeless Tobacco: Never Alcohol Use Standard Drinks/Week Comments Yes 0 (1 standard drink = 0.6 oz pur e alcohol) PHQ-2 Answer Date Recorded Patient Health Questionnaire-2 Score 0 12/04/2022 PHQ-2A Answer Date Recorded Patient Health Questionnaire-2 [...] suspected to have Coronavirus/COVID-19? No / Unsure 12/04/2022 2:16 PM EDT documented as of this encounter Plan of Treatment Not on file documented as of this encounter Procedures Procedure Name Priority Date/Time Associated Diagnosis Comments XR SHOULDER RIGHT 2+ VIEWS 12/20/2022 8:14 PM EDT documented in this encounter Results * XR Shoulder Right 2+ Views (12/20/2022 8:14 PM EDT) Anatomical Region Laterality Modality Upper Extremities, Shoulder Right Digi lori Radiography 12/20/2022 8:14 PM EDT Narrative 12/21/2022 7:44 [place] [address] Name: LYSSA HIGGINS Exam Date: 12/20/2022 : 1940 Age 82 Gender: F Physician: SOLEDAD RODRIGUEZ Facility: [facility] Facility HSV: Outpatient Exam: SHOULDER COMP MIN 2 VWS RT Right shoulder series History: Acute right shoulder pain Findings: Three views demonstrate no acute fracture or dislocation. The joint spaces demonstrate mild to moderate osteophytosis of the AC and glenohumeral joints. IMPRESSION: No acute process. Images reviewed, interpreted and dictated by Dr. Krishna Ritchie Transcribed by Paul Fuentes (R) Dictated By: BRITTANEY DAMON Transcribed By: Brittaney Damon Transcribed On: 12/21/2022 7:34 AM Electronically signed by: BRITTANEY DAMON 12/21/2022 Thank you for referring LYSSA HIGGINS to [facility]. Legally authenticated by HAILEE Gonzalez 2022-12-21 07:34:03 Procedure Note Provider, [facility] [place] - 12/21/2022 [place] [address] Name: LYSSA HIGGINS Exam Date: 12/20/2022 : 1940 Age 82 Gender: F Physician: SOLEDAD RODRIGUEZ Facility: [facility] Facility HSV: Outpatient Exam: SHOULDER COMP MIN 2 VWS RT Right shoulder series History: Acute right shoulder pain Findings: Three views demonstrate no acute fracture or dislocation. Thejoint spaces demonstrate mild to moderate osteophytosis of the AC andglenohumeral joints. IMPRESSION: No acute process. Images reviewed, interpreted and dictated by Dr. Krishna Ritchie Transcribed by Paul Fuentes (R) Dictated By: BRITTANEY DAMON Transcribed By: Brittaney Damon Transcribed On: 12/21/2022 7:34 AM Electronically signed by: BRITTANEY DAMON 12/21/2022 Thank you for referring LYSSA HIGGINS to [facility]. Legally authenticated by HAILEE Gonzalez 2022-12-21 07:34:03 Generic [place] Provider IMG XR PROCEDURES Fi nal Result documented in this encounter Visit Diagnoses Not on filedocumented in this encounter Additional Health Concerns Infection Onset Date Last Indicated Resolved Time COVID-19 Rule-Out 10/18/2023 10/18/2023 10/18/2023 5:55 AM EST COVID-19 Rule-Out 05/06/2024 05/06/2024 05/06/2024 10:52 AM EDT Assessment Noted Time A fall risk assessment has been complete d for the patient 12/04/2022 2:28 PM EDT A Body Mass Index follow-up plan has been documented for the patient 12/04/2022 3:15 PM EDT documented as of this encounter Care Teams Faro Dealer Relationship Specialty Start Date End Date Anand Noble MD [address] [facility] [address] [place] [address] PCP - General Family Medicine 02/10/22 Sabiha Garnett LPN VALUE-BASED TRANSFORMATION PROGRAM Licensed Practical Nurse 07/31/23 08/04/23 Marlyn Saenz LPN VALUE-[place] [place] [address] TCM Nurse 09/28/23 10/21/23 Marlyn Saenz LPN VALUE-[employer]ED [place] [address] TCM Nurse 01/12/24 02/11/24 documented as of this encounter
--- OUTSIDE RECORDS SUMMARY | 2025-03-21 08:44 | XMS_ITS | Encounter Summary ---
Author Organization [facility] Address [address] [place] [address] Care Team Providers Care Sound Effects Manager Name Role Phone Anand Noble MD Primary Care Provider Marlyn Saenz LPN Unavailable Unavailable Encounter Details Date Type Department Care Team (Late st Contact Info) Description 11/26/2023 Outside Procedure External Location [address] [place] [address] Provider, Izaiah [place] Social History Tobacco Use Types Packs/Day Years Used Date Smoking Tobacco: Former Cigarettes 0.5 39 1 918 - 1997 Passive Smoke Exposure: Never Smokeless [...] place to sleep or slept in a detention (including now)? No 10/22/2023 CAGE ASSESSMENT Answer [...] drink first t beatrice in the morning (EYE-TAR DISTRIBUTOR OPERATOR) to steady your nerves or to get rid of a hangover? 0 10/21/2023 CAGE Questionnaire Score 0 024 Utilities Answer Date Recorded In the past 12 months has th e [employer], gas, oil, or water company threatened [...] Associated Diagnosis Comments XR CHEST 1 VIEW 11/26/2023 6:44 PM EDT documented in this encounter Results * XR Chest 1 View (11/26/2023 6:44 PM EDT) Anatomical Region Laterality Modality Chest Digital Radiogra phy 11/26/2023 6:44 PM EDT Narrative 11/26/2023 8:42 [place] [address] Name: LYSSA HIGGINS Exam Date: 11/26/2023 : 1940 Age 83 years Gender: F Physician: DEX NUGENT Facility: [facility] Facility HSV: Inpatient Exam: CHEST PORTABLE FINAL REPORT TECHNIQUE: An AP portable view of the chest was obtained. CLINICAL HISTORY: SOB, increased O2 demand COMPARISON: 2022 FINDINGS: There are new small pleural effusions.There are bilateral somewhat perihilar airspace opacities that may represent pulmonary edema.Pneumonia is not excluded. There is no pneumothorax, adenopathy, or significant osseous abnormality. IMPRESSION: Small pleural effusions.Bilateral lung opacities that may represent pulmonary edema or pneumonia. Reviewed, Interpreted and Dictated by Hi Barajas M.D. Transcribed by María Gilmore Authenticated and EASTERN Dictated By: Hi Barajas Transcribed By: Transcribed On: 11/26/2023 8:19 PM Electronically signed by: Hi Barajas 11/26/2023 Thank you for referring LYSSA HIGGINS to [facility]. Legally authenticated by JACKIE BAKER 2023-11-26 20:19:28 Procedure Note Provider, Generic [place] - 11/26/2023 [id number] [place] [address] Name: LYSSA HIGGINS Exam Date: 11/26/2023 : 1940 Age 83 years Gender: F Physician: DEX NUGENT Facility: [facility] Facility HSV: Inpatient Exam: CHEST PORTABLE FINAL REPORT TECHNIQUE: An AP portable view of the chest was obtained. CLINICAL HISTORY: SOB, increased O2 demand COMPARISON: 2022 FINDINGS: There are new small pleural effusions.There are bilateral somewhat perihilar airspace opacities that may represent pulmonary edema.Pneumonia is not excluded. There is no pneumothorax, adenopathy, or significant osseous abnormality. IMPRESSION: Small pleural effusions.Bilateral lung opacities that may represent pulmonary edema or pneumonia. Reviewed, Interpreted and Dictated by Hi Barajas M.D. Transcribed by María Gilmore Authenticated and EASTERN Dictated By: Hi Barajas Transcribed By: Transcribed On: 11/26/2023 8:19 PM Electronically signed by: Hi Barajas 11/26/2023 Thank you for referring LYSSA HIGGINS to [facility]. Legally authenticated by JACKIE BAKER 2023-11-26 20:19:28 Generic [place] Provider IMG XR PROCEDURES Fi nal Result [...] documented as of this encounter Care Teams Sound Effects Manager Relationship Specialty Start Date End Date Anand Noble MD [address] [facility] [address] [place] [address] PCP - General Family Medicine 02/10/22 Marlyn Saenz LPN VALUE-[place]ED [place] [address] TCM Nurse 01/12/24 02/11/24 documented as of this encounter
--- OUTSIDE RECORDS SUMMARY | 2025-03-21 08:44 | XMS_ITS | Encounter Summary ---
Author Organization Healthcare Address [id number] Care Team Providers Care Senior Education Specialist Name Role Phone Jey Read MD Primary Care Provider [phone] Anand Noble MD Primary Care Provider Sabiha Garnett LPN Unavailable Unavailab Sabiha Carlos MACHINE SORTER Unavailable Unavailab Marlyn Staples MACHINE SORTER Unavailable Unavailable Marlyn Saenz MACHINE SORTER Unavailable Unavailable Reason for Visit * Reason Comments Med Refill Encounter Details Date Type Department Care Team (Late st Contact Info) Description 03/08/2021 Refill [facility] [address] [place] [address] Jey Read MD [address] [place] [address] Stage 3 chronic kidney disease (CMS/HCC) Social History Tobacco Use Types Packs/Day Years Used Date Smoking Tobacco: Former Alcohol Use Standard Drinks/Week Comments Yes 0 (1 standard drink = 0.6 oz pur e alcohol) Comments Unknown Sex and Gender Information Value [...] documented as of this encounter Care Teams Senior Education Specialist Relationship Specialty Start Date End Date Jey Read MD [address] [place] [address] PCP - General 01/04/21 02/09/22 [place] [address] [place] [address] [address] [place] [address] PCP - General Family Medicine 02/10/22 Sabiha Garnett LPN VALUE-BASED TRANSFORMATION PROGRAM Registered Nurse 08/08/22 09/05/22 Sabiha Garnett MACHINE SORTER VALUE-BASED TRANSFORMATION PROGRAM Licensed Practical Nurse 07/31/23 08/04/23 Marlyn Saenz LPN VALUE-BASED [place] [address] TCM Nurse 09/28/23 10/21/23 Marlyn Saenz MACHINE SORTER VALUE-BASED [place] [address] TCM Nurse 01/12/24 02/11/24 documented as of this encounter
--- OUTSIDE RECORDS SUMMARY | 2025-03-21 08:44 | XMS_ITS | Encounter Summary ---
Author Organization [facility] Address [address] [place] [address] Care Team Providers Care Hoop Coiling Machine Operator Name Role Phone Anand Noble MD Primary Care Provider Marlyn Saenz LPN Unavailable Unavailable Encounter Details Date Type Department Care Team (Late st Contact Info) Description 11/27/2023 Outside Procedure External Location [address] [place] [address] Provider, Izaiah [place] Social History Tobacco Use Types Packs/Day Years Used Date Smoking Tobacco: Former Cigarettes 0.5 39 1 398 - 1997 Passive Smoke Exposure: Never Smokeless [...] drink first t beatrice in the morning (EYE-POTTERY MACHINE OPERATOR) to steady your nerves or to get rid of a hangover? 0 10/21/2023 CAGE Questionnaire Score 0 024 Utilities Answer Date Recorded In the past 12 months has th e [employer], gas, oil, or water company threatened [...] Associated Diagnosis Comments CT GUIDED THORACENTESIS LEFT 11/27/2023 11:49 AM EDT documented in this encounter Results * CT Guided Thoracentesis Left (11/27/2023 11:49 AM EDT) Anatomical Region Laterality Modality Chest Left Computed Tomogra phy 11/27/2023 11:4 9 AM EDT Narrative 11/27/2023 1:35 [place] [address] Name: LYSSA HIGGINS Exam Date: 11/27/2023 : 1940 Age 83 years Gender: F Physician: JODEE SWANSON Facility: [facility] Facility HSV: Inpatient Exam: CT THORACENTESIS CT-GUIDED THORACENTESIS HISTORY: Right effusion. ATTENDING PHYSICIAN: Dr. Naa Ramos PHYSICIAN CHAMFERING MACHINE OPERATOR: Rahul Hairston PA-C TECHNIQUE: Informed consent was obtained from the patient. The indications and complications were discussed with the patient prior to beginning the procedure. This included, but was not limited to pain, bleeding, infection, and pneumothorax requiring chest tube placement. The right back was then prepped and draped in sterile fashion. 1% Lidocaine was used for local anesthesia. Utilizing CT guidance, a standard thoracentesis needle and sheath were inserted into the pleural space and approximately 1.1 L of pleural fluid was successfully removed without complication. Sample was sent to the lab for appropriate ordered studies. The patient tolerated the procedure well. IMPRESSION:Technically successful CT guided right-sidedthoracentesis as above. Films reviewed , interpreted and dictated by Dr. Naa Ramos. Transcribed by Pedro López PA-C. Dictated By: Timoteo Marquez Transcribed By: Timoteo Ramos Transcribed On: 11/27/2023 1:03 PM Electronically signed by: Timoteo Marquez 11/27/2023 Thank you for referring LYSSA HIGGINS to [facility]. Legally authenticated by ABIDA RODRIGUEZ 2023-11-27 13:03:43 Procedure Note Provider, Izaiah [place] - 11/27/2023 [facility] [address] [place] [address] Name: LYSSA HIGGINS Exam Date: 11/27/2023 : 1940 Age 83 years Gender: F Physician: JODEE SWANSON Facility: [facility] Facility HSV: Inpatient Exam: CT THORACENTESIS CT-GUIDED THORACENTESIS HISTORY: Right effusion. ATTENDING PHYSICIAN: Dr. Naa Ramos PHYSICIAN CHAMFERING MACHINE OPERATOR: Rahul Hairston PA-C TECHNIQUE: Informed consent was obtained from the patient. The indicationsand complications were discussed with the patient prior to beginning the procedure. This included, but was not limited to pain, bleeding,infection, and pneumothorax requiring chest tube placement. The right back was then prepped and draped in sterile fashion. 1% Lidocaine was used for local anesthesia. Utilizing CT guidance, a standard thoracentesis needle andsheath were inserted into the pleural space and approximately 1.1 L of pleuralfluid was successfully removed without complication. Sample was sent to the labfor appropriate ordered studies. The patient tolerated the procedure well. IMPRESSION:Technically successful CT guided right-sidedthoracentesis asabove. Films reviewed , interpreted and dictated by Dr. Naa Ramos. Transcribed by ePdro López PA-C. Dictated By: Timoteo Marquez Transcribed By: Timoteo Ramos Transcribed On: 11/27/2023 1:03 PM Electronically signed by: Timoteo Marquez 11/27/2023 Thank you for referring LYSSA HIGGINS to [facility]. Legally authenticated by ABIDA RODRIGUEZ 2023-11-27 13:03:43 Generic [place] Provider IMG CT PROCEDURES Fi nal Result [...] documented as of this encounter Care Teams Hoop Coiling Machine Operator Relationship Specialty Start Date End Date Anand Noble MD [address] [facility] [address] [place] [address] PCP - General Family Medicine 02/10/22 Marlyn Saenz LPN VALUE-BASED [place] [address] TCM Nurse 01/12/24 02/11/24 documented as of this encounter
--- OUTSIDE RECORDS SUMMARY | 2025-03-21 08:44 | XMS_ITS | Encounter Summary ---
Author Organization [facility] Address [address] [place] [address] Care Team Providers Care Company Dancer Name Role Phone Anand Noble MD Primary Care Provider Reason for Visit * Reason Comments Med Refill Encounter Details Date Type Department Care Team (Late st Contact Info) Description 02/12/2024 Refill [facility] [address] [place] [address] Anand Noble MD [address] [place] [address] [address] [place] [address] Social History Tobacco Use Types Packs/Day Years Used Date Smoking Tobacco: Former Cigarettes 0.5 39 1 189 - 4881 Passive Smoke Exposure: Never Smokeless Tobacco: Never [...] place to sleep or slept in a [place] (including now)? No 10/22/2023 CAGE ASSESSMENT Answer [...] drink first t beatrice in the morning (EYE-OUTCOMES SPECIALIST) to steady your nerves or to get rid of a hangover? 0 10/21/2023 CAGE Questionnaire Score 0 024 Utilities Answer Date Recorded In the past 12 months has th e [employer], gas, oil, or water company threatened to [...] encounter Miscellaneous Notes * Telephone Encounter - Mckenna Lainez - 02/17/2024 1:27 PM EDT I advised Anuja to check on the furosemide dosage and return call to clinic * Telephone Encounter - Eladia Gilbert - 02/17/2024 12:39 PM EDT Left message * Telephone Encounter - Margaret Nicholas MD - 02/17/2024 12:02 PM EDT I can send in a few furosemide, it is not on med list so I do not know dosage or sig * Telephone Encounter - Roopa Mueller - 02/16/2024 1:03 PM EDT Pts daughter Anuja stated she is not taking the Bumex but is taking the Furosemide. They would like the refill of that sent to [facility]. Ok to do? * Telephone Encounter - Eladia Gilbert - 02/15/2024 10:06 AM EDT Daughter will call back to let us know documented in this encounter Plan of Treatment [...] plan has been documented for the patient 01/21/2024 12:13 PM EDT documented as of this encounter Care Teams Company Dancer Relationship Specialty Start Date End Date Anand Noble MD [address] [address] PCP - General Family Medicine 02/10/22 documented as of this encounter
--- OUTSIDE RECORDS SUMMARY | 2025-03-21 08:44 | XMS_ITS | Encounter Summary ---
Author Organization Healthcare Address [address] [place] [address] Care Team Providers Care Parking Patroller Name Role Phone Jey Read MD Primary Care Provider [phone] Anand Noble MD Primary Care Provider Sabiha Garnett LPN Unavailable Unavailab Sabiha Carlos PACKAGING MACHINE SUPPLIES DISTRIBUTOR Unavailable Unavailab Marlyn Staples PACKAGING MACHINE SUPPLIES DISTRIBUTOR Unavailable Unavailable Marlyn Saenz PACKAGING MACHINE SUPPLIES DISTRIBUTOR Unavailable Unavailable Reason for Visit * Reason Comments Med Refill Encounter Details Date Type Department Care Team (Late st Contact Info) Description 02/01/2021 Refill Family and Community Medicine [address] [place] [address] Jey Read MD [address] [place] [address] Insomnia, unspecified Social History Tobacco [...] encounter Miscellaneous Notes * Telephone Encounter - Rosario Gonsalez, PharmD - 02/04/2021 6:17 PM EDT Rx sent to [facility] for trazodone 50mg take 1/2 tablet at bedtime #45 + 2 refills. documented in this encounter Plan of Treatment [...] documented as of this encounter Care Teams Parking Patroller Relationship Specialty Start Date End Date Jey Read MD [address] [place] [address] PCP - General 01/04/21 02/09/22 [place] [address] [place] [address] [address] [place] [address] PCP - General Family Medicine 02/10/22 Sabiha Garnett LPN VALUE-BASED TRANSFORMATION PROGRAM Registered Nurse 08/08/22 09/05/22 Sabiha Garnett LPN VALUE-BASED TRANSFORMATION PROGRAM Licensed Practical Nurse 07/31/23 08/04/23 Marlyn Saenz LPN VALUE[employer] [address] TCM Nurse 09/28/23 10/21/23 Marlyn Saenz PACKAGING MACHINE SUPPLIES DISTRIBUTOR VALUE-[place] [address] TCM Nurse 01/12/24 02/11/24 documented as of this encounter
--- OUTSIDE RECORDS SUMMARY | 2025-03-21 08:44 | XMS_ITS | Encounter Summary ---
Author Organization [facility] Address [address] [place] [address] Care Team Providers Care Game Preserve Manager Name Role Phone Anand Noble MD Primary Care Provider Marlyn Saenz LPN Unavailable Unavailable Encounter Details Date Type Department Care Team (Late st Contact Info) Description 11/27/2023 Outside Procedure External Location [address] [place] [address] Provider, Izaiah [place] Social History Tobacco Use Types Packs/Day Years Used Date Smoking Tobacco: Former Cigarettes 0.5 39 1 928 - 1997 Passive Smoke Exposure: Never Smokeless [...] place to sleep or slept in a longterm (including now)? No 10/22/2023 CAGE ASSESSMENT Answer [...] drink first t beatrice in the morning (EYE-PLUMBER MAINTENANCE) to steady your nerves or to get rid of a hangover? 0 10/21/2023 CAGE Questionnaire Score 0 024 Utilities Answer Date Recorded In the past 12 months has th e [employer], gas, oil, or water company threatened to [...] Diagnosis Comments XR CHEST 1 VIEW 11/27/2023 9:48 PM EDT documented in this encounter Results * XR Chest 1 View (11/27/2023 9:48 PM EDT) Anatomical Region Laterality Modality Chest Digital Radiogra phy 11/27/2023 9:48 PM EDT Narrative 11/27/2023 11:30 PM EDT [address] [place] [address] Name: LYSSA HIGGINS Exam Date: 11/27/2023 : 1940 Age 83 years Gender: F Physician: SOLITAROI CROWDER Facility: [facility] Facility HSV: Inpatient Exam: CHEST PORTABLE FINAL REPORT TECHNIQUE: An AP portable view of the chest was obtained. CLINICAL HISTORY: check picc placement COMPARISON: One-day prior. FINDINGS: A right PICC ends in the SVC.An endotracheal tube ends at the level of the aortic arch.An NG tube passes into the stomach. There are persistent bilateral central airspace opacities that may represent pulmonary edema, pneumonia cannot be excluded. There are persistent small pleural effusions.There is no pneumothorax. IMPRESSION: Support tubes appropriately positioned, otherwise no significant change Reviewed, Interpreted and Dictated by Hi Barajas M.D. Transcribed by Gregg [place] Authenticated and EASTERN Dictated By: Hi Barajas Transcribed By: Transcribed On: 11/27/2023 11:00 PM Electronically signed by: Hi Barajas 11/27/2023 Thank you for referring LYSSA HIGGINS to [facility]. Legally authenticated by JACKIE BAKER 2023-11-27 23:00:07 Procedure Note Provider, [facility] - 11/27/[address] [address] Name: LYSSA HIGGINS Exam Date: 11/27/2023 : 1940 Age 83 years Gender: F Physician: SOLITARIO CROWDER Facility: [facility] Facility HSV: Inpatient Exam: CHEST PORTABLE FINAL REPORT TECHNIQUE: An AP portable view of the chest was obtained. CLINICAL HISTORY: check picc placement COMPARISON: One-day prior. FINDINGS: A right PICC ends in the SVC.An endotracheal tube ends at the level of the aortic arch.An NG tube passes into the stomach. There are persistent bilateral central airspace opacities that may represent pulmonary edema, pneumonia cannot be excluded. There are persistent small pleural effusions.There is no pneumothorax. IMPRESSION: Support tubes appropriately positioned, otherwise no significant change Reviewed, Interpreted and Dictated by Hi Barajas M.D. Transcribed by Gregg [place] Authenticated and EASTERN Dictated By: Hi Barajas Transcribed By: Transcribed On: 11/27/2023 11:00 PM Electronically signed by: Hi Barajas 11/27/2023 Thank you for referring LYSSA HIGGINS to [facility]. Legally authenticated by JACKIE BAKER 2023-11-27 23:00:07 Generic [place] Provider IMG XR PROCEDURES Fi nal Result [...] documented as of this encounter Care Teams Game Preserve Manager Relationship Specialty Start Date End Date Anand Noble MD [address] [facility] [address] [place] [address] PCP - General Family Medicine 02/10/22 Marlyn Saenz LPN VALUE-BASED [place] [address] TCM Nurse 01/12/24 02/11/24 documented as of this encounter
--- OUTSIDE RECORDS SUMMARY | 2025-03-21 08:44 | XMS_ITS | Encounter Summary ---
Author Organization [facility] Address [address] [place] [address] Care Team Providers Care Laundry Superintendent Name Role Phone Anand Noble MD Primary Care Provider Marlyn Saenz BROWNFIELD REDEVELOPMENT SPECIALIST Unavailable Unavailable Reason for Visit * Reason Comments Med Refill Encounter Details Date Type Department Care Team (Late st Contact Info) Description 02/02/2024 Refill [facility] [address] [place] [address] Anand Noble MD [address] [place] [address] Generalized anxiety disorder Social History Tobacco Use Types Packs/Day Years Used Date Smoking Tobacco: Former Cigarettes 0.5 39 1 398 - 1996 Passive Smoke Exposure: Never Smokeless Tobacco: Never [...] drink first t beatrice in the morning (EYE-SHRIMP PACKER) to steady your nerves or to get rid of a hangover? 0 10/21/2023 CAGE Questionnaire Score 0 024 Utilities Answer Date Recorded In the past 12 months has th e [email or web address], gas, oil, or water company threatened to [...] as of this encounter Visit Diagnoses Diagnosis Generalized anxiety disorder documented in this encounter Additional Health Concerns Infection Onset Date Last Indicated Resolved Time COVID-19 Rule-Out 05/06/2024 05/06/2024 05/06/2024 10:52 AM EDT Assessment Noted Time A fall risk assessment has been complete d for the patient 11/18/2023 8:58 AM EDT A Body Mass Index follow-up plan has been documented for the patient 01/21/2024 12:13 PM EDT documented as of this encounter Care Teams Laundry Superintendent Relationship Specialty Start Date End Date Anand Noble MD [address] [facility] [address] [place] [address] PCP - General Family Medicine 02/10/22 Marlyn Saenz LPN VALUE-BASED [place] [address] TCM Nurse 01/12/24 02/11/24 documented as of this encounter
--- OUTSIDE RECORDS SUMMARY | 2025-03-21 08:44 | XMS_ITS | Encounter Summary ---
Author Organization [facility] Address [address] [place] [address] Care Team Providers Care Terrazzo Supervisor Name Role Phone Anand Noble MD Primary Care Provider Sabiha Garnett LPN Unavailable Unavailab Sabiha Carlos LPN Unavailable Unavailab Marlyn Staples PROSPECT MANAGER Unavailable Unavailable Marlyn Saenz PROSPECT MANAGER Unavailable Unavailable Encounter Details Date Type Department Care Team (Late st Contact Info) Description 08/02/2022 Outside Procedure External Location [address] [place] [id number] Provider, Izaiah [place] Social History Tobacco Use [...] Associated Diagnosis Comments XR CHEST 1 VIEW 08/02/2022 11:29 PM EST documented in this encounter Results * XR Chest 1 View (08/02/2022 11:29 PM EST) Anatomical Region Laterality Modality Chest Radiographic Leslie ging 08/02/2022 11:2 9 PM EST Narrative 08/03/2022 7:19 [place] [address] Name: LYSSA HIGGINS Exam Date: 08/02/2022 : 1940 Age 82 Gender: F Physician: MARLENI PETERSON Facility: [facility] Facility HSV: Outpatient Exam: CHEST PORTABLE SINGLE VIEW CHEST. History: Cough, difficulty breathing Comparison: April 2022 The heart is normal in size. The mediastinum is unremarkable. The lungs are clear. There is no pneumothorax. IMPRESSION: No acute process. Images were reviewed, interpreted and dictated by Anuja Purvis MD Transcribed by Rajan POPE Dictated By: ANUJA PURVIS Transcribed By: ANUJA PURVIS Transcribed On: 08/03/2022 7:08 AM Electronically signed by: ANUJA PURVIS 08/03/2022 Thank you for referring LYSSA HIGGINS to [facility]. Legally authenticated by HYUN GIRON 2022-08-03 07:08:35 Procedure Note Provider, Generic [place] - 08/03/2022 [place] [address] Name: LYSSA HIGGINS Exam Date: 08/02/2022 : 1940 Age 82 Gender: F Physician: MARLENI PETERSON Facility: [facility] Facility HSV: Outpatient Exam: CHEST PORTABLE SINGLE VIEW CHEST. History: Cough, difficulty breathing Comparison: April 2022 The heart is normal in size. The mediastinum is unremarkable. The lungsare clear. There is no pneumothorax. IMPRESSION: No acute process. Images were reviewed, interpreted and dictated by Anuja Purvis MD Transcribed by Rajan Aburto RT Dictated By: ANUJA PURVIS Transcribed By: ANUJA PURVIS Transcribed On: 08/03/2022 7:08 AM Electronically signed by: ANUJA PURVIS 08/03/2022 Thank you for referring LYSSA HIGGINS to [facility]. Legally authenticated by HYUN GIRON 2022-08-03 07:08:35 us Generic [place] Provider IMG XR PROCEDURES Fi nal Result [...] documented as of this encounter Care Teams Terrazzo Supervisor Relationship Specialty Start Date End Date Anand Noble MD [address] [facility] [address] [place] [address] PCP - General Family Medicine 02/10/22 Sabiha Garnett LPN VALUE-BASED TRANSFORMATION PROGRAM Registered Nurse 08/08/22 09/05/22 Sabiha Garnett LPN VALUE-BASED TRANSFORMATION PROGRAM Licensed Practical Nurse 07/31/23 08/04/23 Marlyn Saenz LPN VALUE-BASED [place] [address] TCM Nurse 09/28/23 10/21/23 Marlyn Saenz LPN VALUE-BASED [place] [address] TCM Nurse 01/12/24 02/11/24 documented as of this encounter
--- OUTSIDE RECORDS SUMMARY | 2025-03-21 08:44 | XMS_ITS | Encounter Summary ---
Author Organization [facility] Address [address] [place] [address] Care Team Providers Care Mountain Or Glacier Guide Name Role Phone Anand Noble MD Primary Care Provider Marlyn Saenz LPN Unavailable Unavailable Encounter Details Date Type Department Care Team (Late st Contact Info) Description 11/27/2023 Outside Procedure External Location [address] [place] [address] Provider, Izaiah [place] Social History Tobacco Use Types Packs/Day Years Used Date Smoking Tobacco: Former Cigarettes 0.5 39 1 978 - 1997 Passive Smoke Exposure: Never Smokeless [...] drink first t beatrice in the morning ([employer] COACH) to steady your nerves or to get rid of a hangover? 0 10/21/2023 CAGE Questionnaire Score 0 024 Utilities Answer Date Recorded In the past 12 months has th e [employer], gas, oil, or water company threatened to [...] Associated Diagnosis Comments CT CHEST LIMITED HISTORICAL 11/27/2023 10:14 AM EDT documented in this encounter Results * CT Chest Limited Historical (11/27/2023 10:14 AM EDT) Anatomical Region Laterality Modality Chest Computed Tomogra phy 11/27/2023 10:1 4 AM EDT Narrative 11/27/2023 1:14 [place] [address] Name: LYSSA HIGGINS Exam Date: 11/27/2023 : 1940 Age 83 years Gender: F Physician: MELE JEAN Facility: [facility] Facility HSV: Inpatient Exam: CT CHEST W/O EXAM: CT CHEST WITHOUT IV CONTRAST INDICATION: SOB TECHNIQUE: Helical CT chest without IV contrast was performed. Axial images were obtained from the lung apex to the mid abdomen by computed tomography. This study was performed with techniques to keep radiation doses as low as reasonably achievable, (ALARA). Individualized dose reduction techniques using automated exposure control or adjustment of mA and/or kV according to the patient size were employed. Coronal and sagittal reformats was performed. COMPARISON: None FINDINGS: CHEST: Thyroid: Unremarkable. Heart: Mild cardiomegaly. No pericardial effusion. Vascular: Thoracic aorta is normal caliber. Pulmonary arteries are normal caliber. Extensive multivessel coronary artery calcifications. Lymph Nodes: No mediastinal or hilar lymphadenopathy. No axillary or supraclavicular lymphadenopathy. Lungs/Airways: Mild emphysema. Diffuse bilateral interstitial and perihilar nodular consolidative groundglass opacities. Large bilateral pleural effusions with bibasilar compressive atelectasis. No pneumothorax. Airways are patent. ET tube terminates at the marah, consider retracting by 2-3 cm Esophagus: Unremarkable. Upper Abdomen: No acute upper abdomen findings.. Bones: No suspicious lesion. Degenerative changes of the spine. IMPRESSION: Large bilateral pleural effusions with diffuse bilateral interstitial and perihilar nodular consolidations may reflect pneumonia in the appropriate clinical setting. Probable pulmonary interstitial edema. ET tube terminates at the marah. Consider retracting 2-3 cm. Dictated By: Timoteo Marquez Transcribed By: Timoteo Ramos Transcribed On: 11/27/2023 12:50 PM Legally authenticated by ABIDA RODRIGUEZ 2023-11-27 12:50:20 Electronically signed by: Timoteo Marquez 11/27/2023 Thank you for referring LYSSA HIGGINS to [facility]. Legally authenticated by ABIDA RODRIGUEZ 2023-11-27 12:50:20 Procedure Note Provider, Generic [place] - 11/27/2023 [place] [address] Name: LYSSA HIGGINS Exam Date: 11/27/2023 : 1940 Age 83 years Gender: F Physician: MELE JEAN Facility: [facility] Facility HSV: Inpatient Exam: CT CHEST W/O EXAM: CT CHEST WITHOUT IV CONTRAST INDICATION: SOB TECHNIQUE: Helical CT chest without IV contrast was performed. Axialimages were obtained from the lung apex to the mid abdomen by computedtomography. This study was performed with techniques to keep radiation doses as lowas reasonably achievable, (ALARA). Individualized dose reduction techniquesusing automated exposure control or adjustment of mA and/or kV according tothe patient size were employed. Coronal and sagittal reformats wasperformed. COMPARISON: None FINDINGS: CHEST: Thyroid: Unremarkable. Heart: Mild cardiomegaly. No pericardial effusion. Vascular: Thoracic aorta is normal caliber. Pulmonary arteries arenormal caliber. Extensive multivessel coronary artery calcifications. Lymph Nodes: No mediastinal or hilar lymphadenopathy. No axillary or supraclavicular lymphadenopathy. Lungs/Airways: Mild emphysema. Diffuse bilateral interstitial andperihilar nodular consolidative groundglass opacities. Large bilateral pleuraleffusions with bibasilar compressive atelectasis. No pneumothorax. Airways arepatent. ET tube terminates at the marah, consider retracting by 2-3 cm Esophagus: Unremarkable. Upper Abdomen: No acute upper abdomen findings.. Bones: No suspicious lesion. Degenerative changes of the spine. IMPRESSION: Large bilateral pleural effusions with diffuse bilateral interstitialand perihilar nodular consolidations may reflect pneumonia in theappropriate clinical setting. Probable pulmonary interstitial edema. ET tube terminates at the marah. Consider retracting 2-3 cm. Dictated By: Timoteo Marquez Transcribed By: Timoteo Ramos Transcribed On: 11/27/2023 12:50 PM Legally authenticated by ABIDA RODRIGUEZ 2023-11-27 12:50:20 Electronically signed by: Timoteo Marquez 11/27/2023 Thank you for referring LYSSA HIGGINS to [facility]. Legally authenticated by ABIDA RODRIGUEZ 2023-11-27 12:50:20 Generic [place] Provider IMG CT PROCEDURES Fi nal Result [...] documented as of this encounter Care Teams Mountain Or Glacier Guide Relationship Specialty Start Date End Date Anand Noble MD [address] [facility] [address] [place] [address] PCP - General Family Medicine 02/10/22 Marlyn Saenz LPN [employer]UE[employer] [place] [address] TCM Nurse 01/12/24 02/11/24 documented as of this encounter
--- OUTSIDE RECORDS SUMMARY | 2025-03-21 08:44 | XMS_ITS | Encounter Summary ---
Author Organization Healthcare Address [address] [id number] Care Team Providers Care Policy Advisor Name Role Phone Jey Read MD Primary Care Provider [phone] Anand Noble MD Primary Care Provider Sabiha Garnett SPANISH INTERPRETER Unavailable Unavailab Sabiha Carlos SPANISH INTERPRETER Unavailable Unavailab Marlyn Staples SPANISH INTERPRETER Unavailable Unavailable Marlyn Saenz SPANISH INTERPRETER Unavailable Unavailable Reason for Visit * Reason Comments Med Refill Encounter Details Date Type Department Care Team (Late st Contact Info) Description 04/09/2021 Refill [facility] [address] [place] [address] Jey Read MD [address] [place] [address] Social History Tobacco Use Types [...] Last Indicated Resolved Time COVID-19 Rule-Out 05/02/2021 05/02/202105/0205/02/2021 6:12 PM EDT COVID-19 Rule-Out 09/17/2021 09/17/2021 09/17/2021 10:01 PM EST COVID 19 (Confirmed) 09/17/2021 09/17/2021 022 5:23 AM EST COVID-19 Rule-Out 10/18/2023 10/18/2023 10/18/2023 5:55 AM EST COVID-19 Rule-Out 05/06/2024 05/06/2024 05/06/2024 10:52 AM EDT documented as of this encounter Care Teams Policy Advisor Relationship Specialty Start Date End Date Jey Read MD [address] [place] [address] PCP - General 01/04/21 02/09/22 Anand Noble MD [address] [place] [address] PCP - General Family Medicine 02/10/22 Sabiha Garnett LPN VALUE-BASED TRANSFORMATION PROGRAM Registered Nurse 08/08/22 09/05/22 Sabiha Garnett LPN VALUE-BASED TRANSFORMATION PROGRAM Licensed Practical Nurse 07/31/23 08/04/23 Marlyn Saenz LPN [employer] [address] TCM Nurse 09/28/23 10/21/23 Marlyn Saenz SPANISH INTERPRETER [employer] [address] TCM Nurse 01/12/24 02/11/24 documented as of this encounter
--- OUTSIDE RECORDS SUMMARY | 2025-03-21 08:44 | XMS_ITS | Encounter Summary ---
Author Organization [facility] Address [address] [place] [address] Care Team Providers Care Band Head Saw Operator Name Role Phone Anand Noble MD Primary Care Provider Sabiha Garnett AIRPLANE CABIN ATTENDANT Unavailable Unavailab Marlyn Staples AIRPLANE CABIN ATTENDANT Unavailable Unavailable Marlyn Saenz AIRPLANE CABIN ATTENDANT Unavailable Unavailable Reason for Visit * Reason Comments Med Refill Encounter Details Date Type Department Care Team (Late st Contact Info) Description 06/12/2023 Refill Family and Community Medicine [address] [place] [address] Anand Noble MD [facility] [address] [place] [address] Stage 3 chronic kidney disease (CMS/HCC) Social [...] encounter Miscellaneous Notes * Telephone Encounter - Anand Noble MD - 06/15/2023 11:29 AM EDT No need for further refills, thank you. documented in this encounter Plan of Treatment [...] documented as of this encounter Care Teams Band Head Saw Operator Relationship Specialty Start Date End Date Anand Noble MD [address] [facility] [address] [place] [address] PCP - General Family Medicine 02/10/22 Sabiha Garnett LPN VALUE-BASED TRANSFORMATION PROGRAM Licensed Practical Nurse 07/31/23 08/04/23 Marlyn Saenz LPN [employer] [place] [address] TCM Nurse 09/28/23 10/21/23 Marlyn Saenz LPN [employer] [place] [address] TCM Nurse 01/12/24 02/11/24 documented as of this encounter
--- OUTSIDE RECORDS SUMMARY | 2025-03-21 08:44 | XMS_ITS | Encounter Summary ---
Author Organization [facility] Address [address] [place] [address] Care Team Providers Care Recreation Therapy Aides Teacher Name Role Phone Anand Noble MD Primary Care Provider Sabiha Garnett WASHING MACHINE STRIPER Unavailable Unavailab Marlyn Staples WASHING MACHINE STRIPER Unavailable Unavailable Marlyn Saenz WASHING MACHINE STRIPER Unavailable Unavailable Reason for Visit * Reason Comments Med Refill Encounter Details Date Type Department Care Team (Late st Contact Info) Description 06/29/2023 Refill Family and Community Medicine [address] [place] [address] Anand Noble MD [facility] [address] [place] [address] Stage 3 chronic kidney disease [...] documented as of this encounter Care Teams Recreation Therapy Aides Teacher Relationship Specialty Start Date End Date Anand Noble MD [address] [facility] [address] [place] [address] PCP - General Family Medicine 02/10/22 Sabiha Garnett LPN VALUE-BASED TRANSFORMATION PROGRAM Licensed Practical Nurse 07/31/23 08/04/23 Marlyn Saenz LPN [employer] [place] [address] TCM Nurse 09/28/23 10/21/23 Marlyn Saenz LPN [employer] [place] [address] TCM Nurse 01/12/24 02/11/24 documented as of this encounter
--- OUTSIDE RECORDS SUMMARY | 2025-03-21 08:44 | XMS_ITS | Encounter Summary ---
Author Organization [facility] Address [address] [place] [address] Care Team Providers Care Cable Mechanic Name Role Phone Anand Noble MD Primary Care Provider Marlyn Saenz SANITOR Unavailable Unavailable Reason for Visit * Reason Comments Med Refill Encounter Details Date Type Department Care Team (Late st Contact Info) Description 11/14/2023 Refill [facility] [address] [place] [address] Anand Noble MD [address] [place] [address] [address] [place] [address] Stage 3 chronic kidney disease (CMS/HCC) Social History Tobacco Use Types Packs/Day Years Used Date Smoking Tobacco: Former Cigarettes 0.5 39 1 938 - 0682 Passive Smoke Exposure: Never Smokeless Tobacco: Never [...] drink first t beatrice in the morning (E[employer] COOK) to steady your nerves or to get rid of a hangover? 0 10/21/2023 CAGE Questionnaire Score 0 024 Utilities Answer Date Recorded In the past 12 months has th e electric, gas, oil, or water [employer] threatened to shut off services in your home? No 10/22/2023 PHQ-2A Answer Date Recorded Patient Health Questionnaire-2 Score 0 12/04/2022 Comments Unknown Sex and Gender Information Value Date Recorded Sex Assigned at Not on file Legal Sex Female 8:39 PM EDT Gender Identity Not on file Sexual Orientation Not on file documented as of this encounter Miscellaneous Notes * Telephone Encounter - Keenan Read, PharmD - 11/16/2023 10:30 AM EDT Per protocol, 2 medication(s), flonase and atrovent nasal, has been refused due to: Refill requested too soon Sent 11-02-23 documented in this encounter Plan of Treatment [...] documented as of this encounter Care Teams Cable Mechanic Relationship Specialty Start Date End Date Anand Noble MD [address] [place] [address] PCP - General Family Medicine 02/10/22 Marlyn Saenz LPN [employer] [place] [address] TCM Nurse 01/12/24 02/11/24 documented as of this encounter
--- OUTSIDE RECORDS SUMMARY | 2025-03-21 08:44 | XMS_ITS | Encounter Summary ---
Author Organization [facility] Address [address] [place] [address] Care Team Providers Care Parts Department Manager Name Role Phone Anand Noble MD Primary Care Provider Sabiha Garnett LPN Unavailable Unavailab Sabiha Carlos LPN Unavailable Unavailab Marlyn Staples RN HEMO DIALYSIS Unavailable Unavailable Marlyn Saenz RN HEMO DIALYSIS Unavailable Unavailable Encounter Details Date Type Department Care Team (Late st Contact Info) Description 08/03/2022 Outside Procedure External Location [address] [place] [phone] Provider, Izaiah Hewitt Social History Tobacco Use Types Packs/Day Years Used Date Smoking Tobacco: Former Cigarettes 0.5 39 1 628 - 1997 Passive Smoke Exposure: Never Smokeless [...] Associated Diagnosis Comments CT CHEST LIMITED HISTORICAL 08/03/2022 2:06 AM EST documented in this encounter Results * CT Chest Limited Historical (08/03/2022 2:06 AM EST) Anatomical Region Laterality Modality Chest Computed Tomogra phy 08/03/2022 2:06 AM EST Narrative 08/03/2022 3:35 [place] [address] Name: LYSSA HIGGINS Exam Date: 08/03/2022 : 1940 Age 82 Gender: F Physician: MARLENI PETERSON Facility: [facility] Facility HSV: Outpatient Exam: CT CHEST W/O FINAL REPORT TECHNIQUE: null CLINICAL HISTORY: Cough without fever COMPARISON: null FINDINGS: CT chest without contrast Comparison: None provided. Findings: Pericardial effusion particularly inferior anterior greatest thickness 9 mm. Normal heart size. Coronary artery atherosclerosis. Thoracic aortic atherosclerosis with no aneurysm. Old calcific granulomatous disease. Left lobe of thyroid gland is larger than right. Nonemergent thyroid ultrasound recommended if not yet performed. Mild bilateral patchy groundglass densities, reticulonodular densities, and subpleural lines with mild bibasilar bronchial wall thickening probably related to atypical pneumonia superimposed upon scarring. Other underlying pathologic process including malignant cannot be excluded. Clinical correlation and follow-up to resolution recommended. No dominant pulmonary mass or airspace consolidation. No pleural effusion or pneumothorax. Dropout in density bilateral upper lungs compatible with mild centrilobular emphysema. Contracted gallbladder. Slight adrenal thickening. Bandlike hyperdensity in stomach nonspecific may be ingested such as medication. Clinical correlation. Osteoporosis. Diffuse idiopathic skeletal hyperostosis. IMPRESSION: Impression: 1. Patchy bilateral findings described above suggesting mild atypical pneumonia superimposed upon scarring. Follow-up to resolution recommended. Authenticated and EASTERN Dictated By: Cassandra Holm Transcribed By: Transcribed On: 08/03/2022 3:24 AM Electronically signed by: Cassandra Holm 08/03/2022 Thank you for referring LYSSA HIGGINS to [facility]. Legally authenticated by PAUL ATKINS 2022-08-03 03:24:17 Procedure Note Provider, Generic [place] - 08/03/2022 [facility] [address] [place] [address] Name: LYSSA HIGGINS Exam Date: 08/03/2022 : 1940 Age 82 Gender: F Physician: MARLENI PETERSON Facility: [facility] Facility HSV: Outpatient Exam: CT CHEST W/O FINAL REPORT TECHNIQUE: null CLINICAL HISTORY: Cough without fever COMPARISON: null FINDINGS: CT chest without contrast Comparison: None provided. Findings: Pericardial effusion particularly inferior anterior greatest thickness 9 mm. Normal heart size. Coronary artery atherosclerosis. Thoracic aortic atherosclerosis with no aneurysm. Old calcific granulomatous disease. Left lobe of thyroid gland is larger than right. Nonemergent thyroid ultrasound recommended if not yet performed. Mild bilateral patchy groundglass densities, reticulonodular densities, and subpleural lines with mild bibasilar bronchial wall thickening probably related to atypical pneumonia superimposed upon scarring. Other underlying pathologic process including malignant cannot be excluded. Clinical correlation and follow-up to resolution recommended. No dominant pulmonary mass or airspace consolidation. No pleural effusion or pneumothorax. Dropout in density bilateral upper lungs compatible with mild centrilobular emphysema. Contracted gallbladder. Slight adrenal thickening. Bandlike hyperdensity in stomach nonspecific may be ingested such as medication. Clinical correlation. Osteoporosis. Diffuse idiopathic skeletal hyperostosis. IMPRESSION: Impression: 1. Patchy bilateral findings described above suggesting mild atypical pneumonia superimposed upon scarring. Follow-up to resolution recommended. Authenticated and EASTERN Dictated By: Cassandra Holm Transcribed By: Transcribed On: 08/03/2022 3:24 AM Electronically signed by: Cassandra Holm 08/03/2022 Thank you for referring LYSSA HIGGINS to [facility]. Legally authenticated by PAUL ATKINS 2022-08-03 03:24:17 Generic [place] Provider IMG CT PROCEDURES Fi nal Result [...] documented as of this encounter Care Teams Parts Department Manager Relationship Specialty Start Date End Date Anand Noble MD [address] [facility] [address] [place] [address] PCP - General Family Medicine 02/10/22 Sabiha Garnett LPN VALUE-BASED TRANSFORMATION PROGRAM Registered Nurse 08/08/22 09/05/22 Sabiha Garnett LPN VALUE-BASED TRANSFORMATION PROGRAM Licensed Practical Nurse 07/31/23 08/04/23 Marlyn Saenz LPN VALUE[employer]ED [place] [address] TCM Nurse 09/28/23 10/21/23 Marlyn Saenz LPN VALUE-[employer]ED [place] [address] TCM Nurse 01/12/24 02/11/24 documented as of this encounter
--- OUTSIDE RECORDS SUMMARY | 2025-03-21 08:44 | XMS_ITS | Encounter Summary ---
Author Organization [facility] Address [address] [place] [address] Care Team Providers Care Quarry Supervisor Open Pit Name Role Phone Anand Noble MD Primary Care Provider Encounter Details Date Type Department Care Team (Late st Contact Info) Description 05/03/2024 Outside Procedure External Location [address] [place] [address] Margaret Nicholas MD [address] [place] [address] Social History Tobacco Use Types Packs/Day Years Used Date Smoking Tobacco: Former Cigarettes 0.5 39 1 598 - 6397 Passive Smoke Exposure: Never Smokeless Tobacco: Never [...] place to sleep or slept in a alf (including now)? No 05/03/2024 CAGE ASSESSMENT Answer [...] drink first t beatrice in the morning (EYE-PRECINCT POLICE CAPTAIN) to steady your nerves or to get [...] on file documented as of this encounter Functional Status * Over the past 2 weeks, how often have you been bothered by any of the following problems? Question Answer Date of Assessment Author Little interest or pleasure in doing things Not at all 05/03/2024 8:48 AM EDT Eladia Gilbert Feeling down, depressed, or hopeless Not at all 04/24 8:48 AM EDT Eladia Gilbert Patient Health Questionnaire-2 Score 0 04/24 8:48 AM EDT Eladia Gilbert * Calculated C-SSRS Risk Score (Lifetime/Recent) Answer Date of Assessment Author No Risk Indicated 05/06/2024 8:32 AM EDT Arina Ortiz RN * Question Answer Date of Assessment Author 1. Wish to be (Past 1 Month) No 024 8:32 AM EDT Arina Quiñones RN 2. Non-Specific Active Suici manoj Thoughts (Past 1 Month) No 05/06/2024 8:32 AM EDT Wes Quiñones RN 6. Suicidal Behavior (Lifetime) No 8:32 AM EDT Arina Quiñones RN documented as of this encounter Plan of Treatment Not on file documented as of this encounter Procedures Procedure Name Priority Date/Time Associated Diagnosis Comments XR CHEST 2 VIEWS 05/03/2024 9:38 AM EDT documented in this encounter Results * XR Chest 2 Views (05/03/2024 9:38 AM EDT) Anatomical Region Laterality Modality Chest Digital Radiogra phy 05/03/2024 9:38 AM EDT Narrative 05/03/2024 2:27 [place] [address] Name: LYSSA HIGGINS Exam Date: 05/03/2024 : 1940 Age 83 years Gender: F Physician: Margaret Nicholas Facility: [facility] Facility HSV: Outpatient Exam: CHEST 2 VIEWS Chest PA and lateral HISTORY: Edema COMPARISON: 12/03/2023 FINDINGS: Moderate left pleural effusion. Vascular congestion and interstitial edema. Cardiomegaly noted. Atherosclerotic aorta. IMPRESSION: Mild congestive failure. Moderate left effusion. Electronically signed by:Nba Barajas MD05/03/2024 02:24 PM EDT RP Dictated By: Nba Barajas Transcribed By: Transcribed On: 05/03/2024 10:05 AM Electronically signed by: Nba Barajas 05/03/2024 Thank you for referring LYSSA HIGGINS to [facility]. Legally authenticated by JACKIE MEZA 2024-05-03 10:05:00 Procedure Note Provider, [facility] - 05/03/2024 [place] [address] Name: LYSSA HIGGINS Exam Date: 05/03/2024 : 1940 Age 83 years Gender: F Physician: Margaret Nicholas Facility: [facility] Facility HSV: Outpatient Exam: CHEST 2 VIEWS Chest PA and lateral HISTORY: Edema COMPARISON: 12/03/2023 FINDINGS: Moderate left pleural effusion. Vascular congestion and interstitialedema. Cardiomegaly noted. Atherosclerotic aorta. IMPRESSION: Mild congestive failure. Moderate left effusion. Electronically signed by:Nba Barajas MD05/03/2024 02:24 PM EDT RP Dictated By: Nba Barajas Transcribed By: Transcribed On: 05/03/2024 10:05 AM Electronically signed by: Nba Barajas 05/03/2024 Thank you for referring LYSSA HIGGINS to [facility]. Legally authenticated by JACKIE MEZA 2024-05-03 10:05:00 us Margaret Nicholas MD IMG XR PROCEDURES Final Resul t documented in this encounter Visit Diagnoses Not on filedocumented in this encounter Additional Health Concerns Infection Onset Date Last Indicated Resolved Time COVID-19 Rule-Out 05/06/2024 05/06/2024 05/06/2024 10:52 AM EDT Assessment Noted Time A fall risk assessment has been complete d for the patient 05/03/2024 8:48 AM EDT A Body Mass Index follow-up plan has been documented for the patient 05/03/2024 9:35 AM EDT documented as of this encounter Care Teams Quarry Supervisor Open Pit Relationship Specialty Start Date End Date Anand Noble MD [address] [address] PCP - General Family Medicine 02/10/22 documented as of this encounter
[2025-03-21 08:46] LABS: VBG PH 7.37 mmol/L (7.31-7.41)
[2025-03-21 08:47] LABS: VBG HCO3 29.0 mmol/L (23-30); VBG PCO2 51.6 mmol/L (35-51); VBG PO2 67.5 mmol/L (28-40)
[2025-03-21 08:48] LABS: Lactate Venous 1.3 mmol/L (0.4-2.0)
[2025-03-21 09:01] LABS: Alanine Aminotransferase 21 U/L (12-78); Albumin Level 3.7 g/dl (3.5-5.0); Albumin/Globulin Ratio 1.2 (1.1-1.8); Alkaline Phosphatase 73 U/L (38-126); Anion Gap 11.1 mEq/L (5-15); Aspartate Amino Transferase 30 U/L (14-36); Bilirubin,Total 0.3 mg/dl (0.2-1.3); Calcium 9.6 mg/dl (8.4-10.2); Carbon Dioxide 33 mmol/L (22.0-30.0); Chloride 97 mmol/L (98-107); Creatinine Clearance Estimated 12 mL/min (50-200); Creatinine,Serum 3.50 mg/dl (0.52-1.04); Estimated Glomerular Filt Rate 13 ml/min (>60); GFR (African American) 15 ML/MIN (>60); Globulin 3.1 g/dL (1.3-3.2); Glucose 123 mg/dl (74-100); Magnesium 1.7 mg/dl (1.6-2.3); Phosphorous 5.7 mg/dl (2.5-4.5); Potassium 5.1 mmoL/L (3.5-5.1); Sodium 136 mmol/L (136-145); Total Protein,Serum 6.8 g/dl (6.3-8.2)
[2025-03-21 09:11] LABS: NT Pro Brain Natriuretic Pep. 5980 pg/mL (0-450); Troponin I 0.02 ng/ml (0.00-0.034)
[2025-03-21 09:13] LABS: Blood Urea Nitrogen 81 mg/dl (7-17); Hematocrit 21.7 % (37.0-47.0); Immature Granulocytes % 0.3 %; Mean Corpuscular HGB Conc 30.4 g/dL (31.8-35.4); Mean Corpuscular Hemoglobin 28.8 pg (27.0-31.2); Mean Corpuscular Volume 94.8 fl (81-99); Nucleated Red Blood Cells % 0 %; Platelet Count 302 K/mm3 (142-424); Red Blood Count 2.29 M/mm3 (4.20-5.40); Red Cell Distribution Width-SD 61.3 fL; White Blood Count 5.9 K/mm3 (4.8-10.8)
--- NOTE | 2025-03-21 09:13 | PC.NURSE ---
PT ATTENDS CHANGED AND JEREMY-CARE PROVIDED. CALL LIGHT WITHIN REACH, FAMILY AT BEDSIDE
[2025-03-21 09:15] LABS: Microscopic, Urine URINE MICROSCOPIC (MICROSCOPIC)
[2025-03-21 09:17] LABS: Hemoglobin 6.6 g/dL (12.2-16.2)
[2025-03-21 09:32] LABS: Occult Blood,Stool Positive (Negative)
--- NOTE | 2025-03-21 10:05 | PC.NURSE ---
Dr. Ivory at beside speaking with patient and family regarding POC, admission.
[2025-03-21 10:08] LABS: Color,Urine Yellow (Yellow)
[2025-03-21 10:09] LABS: Bilirubin,Urine Negative (Negative); Glucose,Urine (UA) 2+ (Negative); Ketones,Urine Negative (Negative); Leukocyte Esterase,Urine Negative (Negative); PH,Urine 7.0 (5.0-8.5); Protein,Urine 2+ (Negative); Specific Gravity, Urine 1.015 (1.005-1.030); Urobilinogen,Urine 1.0 EU/dl (0.2); WBC,Urine Occasional #/hpf (0-3)
--- NOTE | 2025-03-21 10:15 | PC.NURSE ---
Dr. Hammer called for admission.
--- NOTE | 2025-03-21 10:22 | PC.NURSE ---
House called for admission.
--- NOTE | 2025-03-21 10:25 | PC.NURSE ---
GI consult ordered, office called to inform patient would be admitted and needs consult.
--- NOTE | 2025-03-21 10:33 | PC.NURSE ---
Patient stated that she needed to use the bathroom. Myself and Leonor Morrell put her on a purewick. we also provided the patient with a warm blanket.
[2025-03-21 10:50] LABS: Activated Partial Thrombo Time 24.0 seconds (22.8-30.6); INR 1.02 (0.9-1.1); Prothrombin Time 11.3 seconds (10.1-12.5)
--- NOTE | 2025-03-21 10:50 | XR_ITS ---
FINAL REPORT CLINICAL HISTORY: Shortness of breath COMPARISON: 11/30/2024 FINDINGS: A single PA view of the chest was obtained. The heart is mildly enlarged but stable. The mediastinum is within normal limits. The interstitial opacities have slightly improved; however, there has been interval worsening of left basilar airspace disease and left pleural effusion. This could represent pneumonia. There is no pneumothorax. IMPRESSION: Worsening left basilar airspace disease and left pleural effusion could represent pneumonia. Recommend follow-up radiographs. Reviewed, Interpreted and Dictated by Babita Whitten MD Transcribed by Rosa Phan Authenticated and [facility]
--- NOTE | 2025-03-21 11:05 | PC.NURSE ---
arrived by stretcher from ED
--- NOTE | 2025-03-21 11:56 | P.CONPHA_ITS ---
Pharmacy Intervention Comments: MEDICATION RECONCILIATION COMPLETED ON PATIENT USING MAR FROM [facility]. -HARPAL LAZO, JOHND
--- NOTE | 2025-03-21 11:56 | HMH.PHAINT1 ---
Pharmacy Intervention Comments: MEDICATION RECONCILIATION COMPLETED ON PATIENT USING MAR FROM LONG TERM. -HARPAL LAZO, JOHND
[2025-03-21 12:11] LABS: Troponin I 0.02 ng/ml (0.00-0.034)
[2025-03-21 12:20] LABS: Iron 63 ug/dL (37-170)
--- NOTE | 2025-03-21 12:23 | P.HP_ITS ---
<Statement entered by Ivan Hammer MD - 03/21/25 16:52> Rounded on patient after nurse practitioner. Personally examined and interviewed patient. Agree with exam findings and care plan as documented. History of Present Illness *Admission Date: 03/21/25 *Reason for visit:: Anemia, HFpEF exacerbation *History of present illness: Ms. Higgins is an 84-year-old female who presented to the emergency department today after an episode of dizziness, and diarrhea. She is a resident at [facility]. She has a extensive medical history of chronic kidney disease stage V, acute on chronic HFpEF, anemia, COPD, hypertension, hypothyroidism, insulin-dependent diabetes mellitus, GERD, chronic pain, and anxiety. Extensive workup in the emergency department revealed significant anemia, hemoglobin 6.6. Baseline hemoglobin from previous visits appears to be between 7 and 8. She also complained of shortness of breath, chest CT shows pulmonary edema with small left effusion, incidentally shows moderate pericardial effusion, lingular and left lower lobe atelectasis, underlying pneumonia not excluded. Lab work was remarkable for kidney dysfunction BUN 81, creatinine 3.5. Estimated GFR 13. BNP 5980. Serial troponins negative at 0.02. No leukocytosis noted, WBC 5.9. She does take aspirin 81 mg daily, not on any other blood thinners. She has previously been worked up at [facility] and [facility] in [place] for her chronic anemia; takes daily iron supplement. Occult stool was positive?this could be from iron supplementation versus GI bleed versus hemorrhoidal bleeding. She also has a history of valvular stenosis (mitral and aortic), echo from [facility] 02/15 showed EF of 55%, 1 to 2 cm pericardial effusion. Upon arrival to the floor, patient's daughter is at bedside. Discussed with patient and daughter current condition and goals of care. Patient and daughter state that she would like everything done for her. 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 Her daughter also informed me that she was recently at [facility] from January 31 to February 13 due to a CHF exacerbation, pleural effusions, anemia. Will obtain records from [facility] for further evaluation of her stay. Her daughter does state that she had multiple thoracentesis during that time to drain the fluid off of her lungs. Patient's vital signs have been stable, O2 saturation is 100% on room air. Will consult cardiology for further evaluation of pleural effusion, LBBB, and HFpEF exacerbation. [facility] Disclaimer: The information contained in this section may have been updated after the patient was seen, as this information can be updated by other users. Medical History Hypothyroid Diabetes mellitus Anemia COPD (chronic obstructive pulmonary disease) Anxiety HLD (hyperlipidemia) CKD (chronic kidney disease) Heart failure Surgical History H/O tubal ligation H/O cataract removal with insertion of prosthetic lens H/O hand surgery History of appendectomy Social History Smoking Status: Former smoker alcohol intake: never current occupational status: retired Travel in the last 8 weeks?: None Have you lived/traveled outside US in past 30 days?: No Contact w/someone who lives/traveled outside US past 30 days?: No Exposure to someone with infectious disease in past 14 days?: No Do you have a fever (greater than 100.4 F or 38 C)?: No Have you tested positive for COVID-19?: No Exposed to someone with COVID-19 in past 14 days?: No Do you have a sore throat?: No Do you have a cough?: No Do you have any weakness?: No Do you have any diarrhea?: No Are you experiencing any unusual bleeding?: No Do you have any muscle aches/pain?: No Do you have any abdominal pain?: No Are you experiencing loss of taste or smell?: No Other Medical History Have you received the Flu Vaccine for this season: No Have you received the Pneumonia Vaccine: No Review of Systems Review of Systems Review of systems:: pertinent systems reviewed and negative unless documented below Constitutional Constitutional: Reports fatigue and Reports lethargy Eyes Eyes: Denies blurry vision ENT Ears, Nose, Mouth, and Throat: Reports dizziness *Cardiovascular Cardiovascular: Denies chest pain, Reports dyspnea and Reports lightheadedness *Respiratory Respiratory: Reports dyspnea and Denies hemoptysis *Gastrointestinal Gastrointestinal: Reports diarrhea, Denies hematochezia, Reports melena and Reports nausea *Genitourinary Genitourinary: Denies urinary incontinence *Neurologic Neurologic: Reports dizziness Endocrine Endocrine: Reports fatigue Meds Home Medications and Allergies Home Medications ?Medication ?Instructions ?Recorded ?Confirmed ?Type duloxetine 30 mg capsule,delayed 30 mg PO DAILY 03/21/25 History release levothyroxine 75 mcg tablet 75 mcg PO DAILY 07/28/22 0 03/21/25 History pantoprazole 40 mg tablet,delayed 40 mg PO DAILY 07/2803/21/25 History release atorvastatin 80 mg tablet 80 mg PO HS 05/28/24 5 History budesonide-formoterol HFA 160 2 puff inhalation BID 03/21/25 History mcg-4.5 mcg/actuation aerosol inhaler ferrous sulfate 325 mg (65 mg 325 mg PO DAILY 05/28/24 03/21/25 History iron) tablet,delayed release fluticasone propionate 50 1 spray intranasal DAILY 01/1403/21/25 History mcg/actuation nasal spray,suspension insulin glargine U-300 conc 300 5 unit SQ HS 05/28/24 03/21/25 History unit/mL (1.5 mL) subcutaneous pen (Toujeo SoloStar U-300 Insulin) insulin lispro 100 unit/mL See Protocol SQ ACHS 03/21/25 History subcutaneous pen (Humalog KwikPen (U-100) Insulin) ipratropium 0.5 mg-albuterol 3 mg 3 ml inhalation Q4HP PRN Shortness 05/28/24 03/21/25 History (2.5 mg base)/3 mL nebulization Of Breath soln sennosides 8.6 mg-docusate sodium 2 tab PO BIDP PRN Co nstipation 05/28/24 03/21/25 History 50 mg capsule loratadine 10 mg tablet 10 mg PO DAILY 08/19/2402/22 History melatonin 5 mg tablet 5 mg PO HS 08/19/24 03/21/25 History aspirin 81 mg tablet,delayed 81 mg PO DAILY 11/30/24 0 03/21/25 History release carvedilol 12.5 mg tablet 12.5 mg PO BID 11/30/2402/22 History hydralazine 50 mg tablet 50 mg PO TID 11/30/24 History insulin lispro 100 unit/mL 3 unit SQ TID 11/30/24/05/18 History subcutaneous solution ondansetron 4 mg disintegrating 4 mg PO Q6HP PRN Nause a And 11/30/24 03/21/25 History tablet Vomiting trazodone 50 mg tablet 25 mg PO HS 11/30/24 5 History acetaminophen 325 mg tablet 650 mg PO DAILY 03/21/25 0 03/21/25 History albuterol sulfate 90 mcg/actuation 2 puff inhalation Q 4HP PRN 03/21/25 03/21/25 History aerosol inhaler Shortness Of Breath bumetanide 2 mg tablet 2 mg PO DAILY 03/21/2503/21 History doxazosin 2 mg tablet 2 mg PO HS 03/21/25 03/21/25 History empagliflozin 10 mg tablet 10 mg PO DAILY 03/21/25 History (Jardiance) isosorbide mononitrate 60 mg 60 mg PO DAILY 03/21/25 0 03/21/25 History tablet,extended release 24 hr oxycodone 5 mg tablet 5 mg PO Q8HP PRN Moderate Pa in 03/21/25 03/21/25 History (Scale Score 5-6) polyethylene glycol 3350 17 17 g PO SUTUTHSA 03/21/25 03/21/25 History gram/dose oral powder (Miralax) propylene glycol 0.6 % eye drops 1 drp Eye-Both QID 03/21/25 History (Systane Balance) sodium zirconium cyclosilicate 5 5 g PO DAILY 03/21/25 03/21/25 History gram oral powder packet (Lokelma) New Prescriptions to Start Prescriptions: Allergies Allergy/AdvReac Type Severity Reaction Status Date / Time adhesive tape Allergy Unknown Verified 06/20/24 11:26 allergy reaction ciprofloxacin Allergy Unknown Verified 06/20/24 11:26 allergy reaction codeine Allergy Unknown Verified 06/20/24 11:26 allergy reaction doxycycline Allergy Unknown Verified 06/20/24 11:26 allergy reaction erythromycin base Allergy Unknown Verified 06/20/24 11:26 allergy reaction latex Allergy Unknown Verified 06/20/24 11:26 allergy reaction Penicillins Allergy Unknown Verified 06/20/24 11:26 allergy reaction Sulfa (Sulfonamide Allergy Unknown Verified 06/20/24 11:26 Antibiotics) allergy reaction Exam Data for Last 24 hours Vital signs and Labs for Last 24 Hours: Temp Pulse Resp BP Pulse Ox O2 Del Method O2 Flow Rate 97.9 F 70 16 158/55 H 100 Nasal Cannula 2 03/21/25 12:15 03/21/25 12:15 03/21/25 12:15 03/21/25 12:15 03/21/25 12:15 03/21/25 11:05 03/21/25 11:05 Laboratory Results - last 24 hr 03/21/25 08:34: VBG pH 7.37, VBG pCO2 51.6 H, VBG pO2 67.5 H, VBG HCO3 29.0, VBG Total CO2 30.6 H, VBG O2 Saturation 92.0 H, VBG Base Excess 3.7 H, VBG Lactic Acid 1.3 03/21/25 08:35: WBC 5.9, RBC 2.29 L, Hgb 6.6 L*, Hct 21.7 L, MCV 94.8, MCH 28.8, MCHC 30.4 L, RDW 17.3, Plt Count 302, MPV 10.9 H, Neut % (Auto) 65.1, Lymph % (Auto) 17.7, Peach % (Auto) 14.6 H, Eos % (Auto) 2.0, Baso % (Auto) 0.3, Neut # (Auto) 3.8, Lymph # (Auto) 1.0, Peach # (Auto) 0.9, Eos # (Auto) 0.1, Baso # (Auto) 0.0, PT 11.3, INR 1.02, APTT 24.0, Sodium 136, Potassium 5.1, Chloride 97 L, Carbon Dioxide 33 H, Anion Gap 11.1, BUN 81 H, Creatinine 3.50 H, Estimated Creat Clear 12, Estimated GFR 13 L*, Est GFR ( Amer) 15 L*, Glucose 123 H , Calcium 9.6, Phosphorus 5.7 H, Magnesium 1.7, Total Bilirubin 0.3, AST 30, ALT 21, Alkaline Phosphatase 73, Troponin I 0.02, NT-Pro-B Natriuret Pep 5980 H, Total Protein 6.8 D, Albumin 3.7, Globulin 3.1, Albumin/Globulin Ratio 1.2 03/21/25 09:10: Urine Color Yellow, Urine Appearance Clear, Urine pH 7.0, Ur Specific [place] 1.015, Urine Protein 2+ A, Urine Glucose (UA) 2+, Urine Ketones Negative, Urine Blood Negative, Urine Nitrate Negative, Urine Bilirubin Negative, Urine Urobilinogen 1.0, Ur Leukocyte Esterase Negative, Urine RBC None, Urine WBC Occasional, Ur Squamous Epith Cells 5-10, Urine Bacteria None 03/21/25 09:19: Stool Occult Blood Positive A 03/21/25 09:36: Blood Type O Positive, Antibody Screen Negative, Crossmatch (AHG) See Detail 03/21/25 11:25: Troponin I 0.02 I & O for Last 24 hours: Intake & Output 03/18/25 03/19/25 03/20/25 03/21/25 23:59 23:59 23:59 23:59 Intake Total 0 / 0 Balance 0 / 0 Weight 61.054 kg Constitutional Constitutional: mild distress, average body habitus, chronically ill appearing and cooperative *Routine HEENT Exam Head: Present normocephalic Eye: Present EOMI and PERRL ENT: Present mucous membranes moist *Routine Neck Exam Neck: Present supple; Absent lymphadenopathy *Routine Respiratory Exam Respiratory: Present prolonged expiratory phase, crackles and diminished air movement; Absent rhonchi or wheezes *Routine Cardiovascular Exam Cardiovascular: Present RRR *Routine Abdominal Exam Abdominal: Present soft and normoactive bowel sounds; Absent tenderness *Routine Rectal Exam Rectal:: deferred *Routine Genitalia Exam Genitalia:: deferred *Routine Extremities Exam Extremities: Present edema (2+ to knees); Absent cyanosis or clubbing *Routine Skin Exam Skin: Present intact, pallor and warm; Absent rash *Routine Neurological Exam Neurological: Present alert, oriented X3 and moving all extremities; Absent altered mental status Assessment and Plan *Assessment and plan (1) Chronic kidney disease, stage IV (severe): Status: Acute Category: Medical Code(s): N18.4 - Chronic kidney disease, stage 4 (severe) (2) Acute on chronic combined systolic and diastolic heart failure: Status: Acute Category: Medical Code(s): I50.43 - Acute on chronic combined systolic (congestive) and diastolic (congestive) heart failure (3) Anemia: Status: Acute Category: Medical Code(s): D64.9 - Anemia, unspecified (4) Chronic pericardial effusion: Status: Acute Category: Medical Code(s): I31.39 - Other pericardial effusion (noninflammatory) (5) COPD (chronic obstructive pulmonary disease): Status: Acute Category: Medical Code(s): J44.9 - Chronic obstructive pulmonary disease, unspecified (6) Anxiety: Status: Acute Category: Medical Code(s): F41.9 - Anxiety disorder, unspecified (7) Diabetes mellitus: Status: Acute Category: Medical Code(s): E11.9 - Type 2 diabetes mellitus without complications (8) Hypothyroid: Status: Acute Category: Medical Code(s): E03.9 - Hypothyroidism, unspecified (9) Complete left bundle branch block (LBBB): Status: Acute Category: Medical Code(s): I44.7 - Left bundle-branch block, unspecified Plan Ms. Higgins is an 84-year-old female that presented to the emergency department today after an episode of dizziness and diarrhea. She has a history of chronic anemia and HFpEF. Patient became increasingly short of breath after being admitted to the floor, chest x-ray was obtained and I independently interpreted it showed left pleural effusion possible pneumonia. Chest CT was then ordered. Due to patient's shortness of breath, symptomatic anemia, HFpEF the ER physician requested admission, I agreed to admit the patient for further management. Problems addressed as follows: #Chronic kidney disease stage IV-V #Hypertension #Acute on chronic systolic and diastolic heart function ?After discussing with the family patient is meeting with the physician for a fistula placement in the coming weeks. 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 ?Records obtained from [facility] per my review, patient has combined heart failure with preserved EF and diastolic dysfunction. Moderate to severe aortic stenosis and mitral valve stenosis. She has a chronic history of congestive heart failure, BNP elevated to 5980. Initiated Bumex 2 mg IV. Will continue Bumex 2 mg IV daily. ?Plans to monitor strict I's and O's. ?Will hold isosorbide 60 mg, doxazosin 2 mg daily at this time, patient's blood pressure is normotensive. Will continue carvedilol 12.5 mg twice daily, continue Jardiance 10 mg daily. ?Recheck CMP in the AM. ?Cardiology consulted, ordered repeat echo?pending. ?Continue sodium bicarb 650 mg twice daily for metabolic acidosis. Patient does have a history of hyperkalemia, potassium stable at 4.9. #Symptomatic anemia ? Patient hemoglobin on admission 6.6. Initiated 1 unit PRBCs, after approximately 30 minutes of infusion patient began to have 10/10 chest pain, stating that it felt like there was an elephant on her chest. She also complained of dizziness, headache, nausea. Blood products were immediately stopped at 12:55 PM, Benadryl 50 mg IV given. EKG obtained which showed sinus rhythm with a left bundle branch block, reviewing previous records this seems to be baseline for her. Stat troponin obtained, 0.02. Chest x-ray obtained which showed patient to have pulmonary edema, Bumex 2 mg IV given at that time. Patient remained normo/hypertensive and O2 saturation remained 100%. Patient seem to be very anxious at this time, hydroxyzine 25 mg given p.o. This is a home medication for her. Zofran given for nausea at this time as well. ?Will repeat CBC, CMP this afternoon and possible transfusion later today. ?Pathology appears that the patient did not have a transfusion reaction, suspect patient was having increased anxiety due to feelings of shortness of breath. ?Plans to transfuse for hemoglobin greater than 8. Will continue iron supplement. ?Plans to stop aspirin 81 mg daily at this time, start Protonix one-time dose 80 mg IV, scheduled Protonix 40 mg twice daily. Patient does take Protonix p.o. currently at home. Patient does deny coffee-ground emesis, bright red bleeding per rectum, does endorse dark stools (patient takes iron supplement, this is likely her baseline). No active signs of bleeding. #Diabetes mellitus ?Continue insulin glargine 5 units SQ at bedtime ?ACHS fingersticks, sliding scale insulin per protocol ?A1c pending #Anxiety: Continue Cymbalta 30 mg daily, continue hydroxyzine 25 mg 3 times daily as needed for anxiety. #Hyperlipidemia: Continue Lipitor 80 mg at bedtime. #Chronic pain: Continue oxycodone 5 mg every 8 hours as needed for moderate pain. #Constipation: Continue senna?docusate 2 tabs twice daily as needed for constipation, MiraLAX daily. #Hypothyroidism: Continue levothyroxine 75 mcg daily. Full code Diabetic diet PT OT consult, cards consult VTE?IPC's
[2025-03-21 12:29] LABS: Total Iron Binding Capacity 258 ug/dL (265-497)
--- NOTE | 2025-03-21 12:35 | ECG_ITS ---
APPROVED REPORT Exam: Resting ECG HR:69 bpm ECG Measurements Heart Rate 69 AXES DC 194 P 52 QRSd 154 QRS 20 QT 448 T 85 QTc 466 Conclusion SINUS RHYTHM POSSIBLE LEFT ATRIAL ENLARGEMENT [-0.1mV P-WAVE IN V1/V2] LEFT BUNDLE BRANCH BLOCK [120+ ms QRS DURATION, 80+ ms Q/S IN V1/V2, 85+ ms R IN I/aVL/V5/V6] ABNORMAL ECG UNCONFIRMED REPORT Electronically signed by : Boom Kebede MD 03/22/2025 07:55:31
[2025-03-21] MEDS: BUMETANIDE 1MG/4ML VIAL 2 MG IV (12:55)
--- NOTE | 2025-03-21 13:07 | EXP.GE.CONS ---
History of Present Illness *Admission Date: 03/21/25 *Reason for visit:: Syncopal episode/anemia *History of present illness: Lyssa Higgins is an 84-year-old female with a history of COPD on 2 L nasal cannula at baseline, chronic constipation on laxatives, CKD, hypertension, hypothyroidism, diabetes mellitus who presents to the emergency department via EMS from [place] for diarrhea and passing out on the toilet. Patient states that she gets lightheaded when she stands up and her stools are chronically loose/diarrhea because she is on a laxative. She states that today, she does not remember what happened and last remembered getting up to go to the toilet. Reportedly while on the toilet, she had 2 episodes of passing out. EMS states that she had low blood pressure readings by the facility but has been normotensive and alert and oriented with them during the entire encounter. Patient denies any abdominal pain, chest pain, shortness of breath, dysuria or hematuria. She reports chronic right-sided shoulder pain secondary to a stroke that affected the right side of her body. Per ER H&P This is an 84-year-old female resident of [place] with a history of chronic anemia. Her hemoglobin usually runs between 7 and 8. Upon admission here in the ER her hemoglobin was down to 6.6 with a positive Hemoccult. GI was consulted. Patient is sitting up in the bed alert and oriented receiving a unit of packed red blood cells. Her daughter is at bedside. Daughter reports that the patient's chronic anemia has been investigated with both EGD and colonoscopy. She reports that this is chronic for her. It has been several years since she has had investigation. She reports that the patient has such severe COPD that she was never a good candidate for sedation for another procedure. She reports that the patient was really sent here to receive transfusion for her chronic anemia. Patient on no anticoagulation but for aspirin. Denies any NSAID use or alcohol use. No new abdominal pain. [facility] Disclaimer: The information contained in this section may have been updated after the patient was seen, as this information can be updated by other users. Medical History Hypothyroid Diabetes mellitus Anemia COPD (chronic obstructive pulmonary disease) Anxiety HLD (hyperlipidemia) CKD (chronic kidney disease) Heart failure Surgical History H/O tubal ligation H/O cataract removal with insertion of prosthetic lens H/O hand surgery History of appendectomy Social History Smoking Status: Former smoker alcohol intake: never current occupational status: retired Travel in the last 8 weeks?: None Have you lived/traveled outside US in past 30 days?: No Contact w/someone who lives/traveled outside US past 30 days?: No Exposure to someone with infectious disease in past 14 days?: No Do you have a fever (greater than 100.4 F or 38 C)?: No Have you tested positive for COVID-19?: No Exposed to someone with COVID-19 in past 14 days?: No Do you have a sore throat?: No Do you have a cough?: No Do you have any weakness?: No Do you have any diarrhea?: No Are you experiencing any unusual bleeding?: No Do you have any muscle aches/pain?: No Do you have any abdominal pain?: No Are you experiencing loss of taste or smell?: No Meds Home Medications and Allergies Home Medications ?Medication ?Instructions ?Recorded ?Confirmed ?Type duloxetine 30 mg capsule,delayed 30 mg PO DAILY 12/05/22 07/29/25 History release levothyroxine 75 mcg tablet 75 mcg PO DAILY 07/28/22 03/21/25 History pantoprazole 40 mg tablet,delayed 40 mg PO DAILY 07/28/22 03/21/25 History release atorvastatin 80 mg tablet 80 mg PO HS 05/28/24 03/21/25 History budesonide-formoterol HFA 160 2 puff inhalation BID 05/28/24 03/21/25 History mcg-4.5 mcg/actuation aerosol inhaler ferrous sulfate 325 mg (65 mg 325 mg PO DAILY 05/28/24 03/21/25 History iron) tablet,delayed release fluticasone propionate 50 1 spray intranasal DAILY 05/28/24 03/21/25 History mcg/actuation nasal spray,suspension insulin glargine U-300 conc 300 5 unit SQ HS 05/28/24 03/21/25 History unit/mL (1.5 mL) subcutaneous pen (Toujeo SoloStar U-300 Insulin) insulin lispro 100 unit/mL See Protocol SQ ACHS 05/28/24 03/21/25 History subcutaneous pen (Humalog KwikPen (U-100) Insulin) ipratropium 0.5 mg-albuterol 3 mg 3 ml inhalation Q4HP PRN Shortness 05/28/24 03/21/25 History (2.5 mg base)/3 mL nebulization Of Breath soln sennosides 8.6 mg-docusate sodium 2 tab PO BIDP PRN Constipation 05/28/24 03/21/25 History 50 mg capsule loratadine 10 mg tablet 10 mg PO DAILY 08/19/24 03/21/25 History melatonin 5 mg tablet 5 mg PO HS 08/19/24 03/21/25 History aspirin 81 mg tablet,delayed 81 mg PO DAILY 11/30/24 03/21/25 History release carvedilol 12.5 mg tablet 12.5 mg PO BID 11/30/24 03/21/25 History hydralazine 50 mg tablet 50 mg PO TID 11/30/24 03/21/25 History insulin lispro 100 unit/mL 3 unit SQ TID 11/30/24 03/21/25 History subcutaneous solution ondansetron 4 mg disintegrating 4 mg PO Q6HP PRN Nausea And 11/30/24 03/21/25 History tablet Vomiting trazodone 50 mg tablet 25 mg PO HS 11/30/24 03/21/25 History acetaminophen 325 mg tablet 650 mg PO DAILY 03/21/25 03/21/25 History albuterol sulfate 90 mcg/actuation 2 puff inhalation Q4HP PRN 03/21/25 03/21/25 History aerosol inhaler Shortness Of Breath bumetanide 2 mg tablet 2 mg PO DAILY 03/21/25 03/21/25 History doxazosin 2 mg tablet 2 mg PO HS 03/21/25 03/21/25 History empagliflozin 10 mg tablet 10 mg PO DAILY 03/21/25 03/21/25 History (Jardiance) isosorbide mononitrate 60 mg 60 mg PO DAILY 03/21/25 03/21/25 History tablet,extended release 24 hr oxycodone 5 mg tablet 5 mg PO Q8HP PRN Moderate Pain 03/21/25 03/21/25 History (Scale Score 5-6) polyethylene glycol 3350 17 17 g PO SUTUTHSA 03/21/25 03/21/25 History gram/dose oral powder (Miralax) propylene glycol 0.6 % eye drops 1 drp Eye-Both QID 03/21/25 03/21/25 History (Systane Balance) sodium zirconium cyclosilicate 5 5 g PO DAILY 03/21/25 03/21/25 History gram oral powder packet (Lokelma) New Prescriptions to Start Prescriptions: Allergies Allergy/AdvReac Type Severity Reaction Status Date / Time adhesive tape Allergy Unknown Verified 06/20/24 11:26 allergy reaction ciprofloxacin Allergy Unknown Verified 06/20/24 11:26 allergy reaction codeine Allergy Unknown Verified 06/20/24 11:26 allergy reaction doxycycline Allergy Unknown Verified 06/20/24 11:26 allergy reaction erythromycin base Allergy Unknown Verified 06/20/24 11:26 allergy reaction latex Allergy Unknown Verified 06/20/24 11:26 allergy reaction Penicillins Allergy Unknown Verified 06/20/24 11:26 allergy reaction Sulfa (Sulfonamide Allergy Unknown Verified 06/20/24 11:26 Antibiotics) allergy reaction Exam (Inpt) Vital signs and Labs for Last 24 Hours: Temp Pulse Resp BP Pulse Ox O2 Del Method O2 Flow Rate 97.9 F 70 16 158/55 H 100 Nasal Cannula 2 07/29/25 12:15 03/21/25 12:15 03/21/25 12:15 03/21/25 12:15 03/21/25 12:15 03/21/25 11:05 03/21/25 11:05 Laboratory Results - last 24 hr 03/21/25 08:34: VBG pH 7.37, VBG pCO2 51.6 H, VBG pO2 67.5 H, VBG HCO3 29.0, VBG Total CO2 30.6 H, VBG O2 Saturation 92.0 H, VBG Base Excess 3.7 H, VBG Lactic Acid 1.3 03/21/25 08:35: WBC 5.9, RBC 2.29 L, Hgb 6.6 L*, Hct 21.7 L, MCV 94.8, MCH 28.8, MCHC 30.4 L, RDW 17.3, Plt Count 302, MPV 10.9 H, Neut % (Auto) 65.1, Lymph % (Auto) 17.7, Call[place] % (Auto) 14.6 H, Eos % (Auto) 2.0, Baso % (Auto) 0.3, Neut # (Auto) 3.8, Lymph # (Auto) 1.0, Call[place] # (Auto) 0.9, Eos # (Auto) 0.1, Baso # (Auto) 0.0, PT 11.3, INR 1.02, APTT 24.0, Sodium 136, Potassium 5.1, Chloride 97 L, Carbon Dioxide 33 H, Anion Gap 11.1, BUN 81 H, Creatinine 3.50 H, Estimated Creat Clear 12, Estimated GFR 13 L*, Est GFR ( Amer) 15 L*, Glucose 123 H, Calcium 9.6, Phosphorus 5.7 H, Magnesium 1.7, Total Bilirubin 0.3, AST 30, ALT 21, Alkaline Phosphatase 73, Troponin I 0.02, NT-Pro-B Natriuret Pep 5980 H, Total Protein 6.8 D, Albumin 3.7, Globulin 3.1, Albumin/Globulin Ratio 1.2 03/21/25 09:10: Urine Color Yellow, Urine Appearance Clear, Urine pH 7.0, Ur Specific [place] 1.015, Urine Protein 2+ A, Urine Glucose (UA) 2+, Urine Ketones Negative, Urine Blood Negative, Urine Nitrate Negative, Urine Bilirubin Negative, Urine Urobilinogen 1.0, Ur Leukocyte Esterase Negative, Urine RBC None, Urine WBC Occasional, Ur Squamous Epith Cells 5-10, Urine Bacteria None 03/21/25 09:19: Stool Occult Blood Positive A 03/21/25 09:36: Blood Type O Positive, Antibody Screen Negative, Crossmatch (AHG) See Detail 03/21/25 11:25: Iron 63, TIBC 258 L, Iron Saturation 24.48825, Troponin I 0.02 I & O for Labs for Last 24 Hours: Intake & Output 03/19/25 03/20/25 03/21/25 03/22/25 11:59 11:59 11:59 11:59 Intake Total 0 Balance 0 Weight 61.054 kg Results Labs 03/21/25 08:35 03/21/25 08:35 Labs: Laboratory Results - last 24 hr 03/21/25 08:34: VBG pH 7.37, VBG pCO2 51.6 H, VBG pO2 67.5 H, VBG HCO3 29.0, VBG Total CO2 30.6 H, VBG O2 Saturation 92.0 H, VBG Base Excess 3.7 H, VBG Lactic Acid 1.3 03/21/25 08:35: WBC 5.9, RBC 2.29 L, Hgb 6.6 L*, Hct 21.7 L, MCV 94.8, MCH 28.8, MCHC 30.4 L, RDW 17.3, Plt Count 302, MPV 10.9 H, Neut % (Auto) 65.1, Lymph % (Auto) 17.7, Call[place] % (Auto) 14.6 H, Eos % (Auto) 2.0, Baso % (Auto) 0.3, Neut # (Auto) 3.8, Lymph # (Auto) 1.0, [place] # (Auto) 0.9, Eos # (Auto) 0.1, Baso # (Auto) 0.0, PT 11.3, INR 1.02, APTT 24.0, Sodium 136, Potassium 5.1, Chloride 97 L, Carbon Dioxide 33 H, Anion Gap 11.1, BUN 81 H, Creatinine 3.50 H, Estimated Creat Clear 12, Estimated GFR 13 L*, Est GFR ( Amer) 15 L*, Glucose 123 H, Calcium 9.6, Phosphorus 5.7 H, Magnesium 1.7, Total Bilirubin 0.3, AST 30, ALT 21, Alkaline Phosphatase 73, Troponin I 0.02, NT-Pro-B Natriuret Pep 5980 H, Total Protein 6.8 D, Albumin 3.7, Globulin 3.1, Albumin/Globulin Ratio 1.2 03/21/25 09:10: Urine Color Yellow, Urine Appearance Clear, Urine pH 7.0, Ur Specific [place] 1.015, Urine Protein 2+ A, Urine Glucose (UA) 2+, Urine Ketones Negative, Urine Blood Negative, Urine Nitrate Negative, Urine Bilirubin Negative, Urine Urobilinogen 1.0, Ur Leukocyte Esterase Negative, Urine RBC None, Urine WBC Occasional, Ur Squamous Epith Cells 5-10, Urine Bacteria None 03/21/25 09:19: Stool Occult Blood Positive A 03/21/25 09:36: Blood Type O Positive, Antibody Screen Negative, Crossmatch (AHG) See Detail 03/21/25 11:25: Iron 63, TIBC 258 L, Iron Saturation 24.81700, Troponin I 0.02 Assessment and Plan *Assessment and plan (1) Chronic anemia: Status: Acute Category: Medical Code(s): D64.9 - Anemia, unspecified (2) Syncope: Status: Acute Category: Medical Code(s): R55 - Syncope and collapse (3) GI bleed: Status: Acute Category: Medical Code(s): K92.2 - Gastrointestinal hemorrhage, unspecified (4) Symptomatic anemia: Status: Acute Category: Medical Code(s): D64.9 - Anemia, unspecified Plan 1. Acute on chronic but symptomatic anemia/syncope/GI bleed Patient is chronic anemia usually hemoglobin runs between 7 and 8. Slightly lower at 6.6 this time with a positive Hemoccult. After discussion with her daughter, this is baseline for this patient. She has had investigations EGD and colonoscopy but it has been many years. She has such severe COPD that she was not a good candidate for sedation for procedure. She really just needed packed red cells replaced during this admission. She is on oral iron and a PPI. After discussion with Dr. Pop, I am happy to see her after discharge as an outpatient and we may consider virtual colonoscopy or other imaging.
[2025-03-21 13:08] LABS: Troponin I 0.02 ng/ml (0.00-0.034)
[2025-03-21] MEDS: ONDANSETRON 4MG/2ML VIAL 4 MG IV (13:20)
--- NOTE | 2025-03-21 13:26 | CT_ITS ---
FINAL REPORT TECHNIQUE: Thin section axial images were obtained from the lung apices through the upper abdomen without contrast. This study was performed with techniques to keep radiation doses as low as reasonably achievable (ALARA). Individualized dose reduction techniques using automated exposure control or adjustment of mA and/or kV according to the patient's size were employed. CLINICAL HISTORY: shortness of breath, pleural effusion FINDINGS: The left lobe of the thyroid is enlarged and extends substernally. There is no axillary lymphadenopathy. There is an enlarged right paratracheal lymph node measuring 23 mm. Subcarinal lymphadenopathy measures 27 mm. There is no hilar lymphadenopathy. Small left pleural effusion is identified. There is mild pericardial effusion. There is bilateral interlobular septal thickening concerning for pulmonary edema. There is lingular and left lower lobe atelectasis or pneumonia. Limited, unenhanced evaluation of the upper abdomen is without acute abnormality. There is no acute osseous abnormality. IMPRESSION: Findings concerning for pulmonary edema with small left effusion. Moderate pericardial effusion. Lingular and left lower lobe atelectasis, underlying pneumonia is not excluded. Reviewed, Interpreted and Dictated by Babita Whitten MD Transcribed by Yvonne Pulido Authenticated and [facility]
--- NOTE | 2025-03-21 14:03 | CA_ITS ---
APPROVED REPORT EXAM: Comprehensive 2D, Doppler, and color-flow Echocardiogram Med Care Manager: JOSE DANIEL Ely, RVS Ht: 5 ft 4 in Wt: 34lbs BSA: 0.92 BP: 120/70 mmHg Indications: HFrEF, Anemia, COPD, SOA, Murmur-MAC, HTN, HLD, DM 2D Dimensions Aortic Root 2.57 cm LA Volume 127.30 mL Left Atrium 3.26 cm LA Volume Index 138.154611 mL/m2 (M/F) 16-34 RVID Base (AP4) 3.72 cm (M/F) 2.5-4.1 EF AP4 46.00 % LVOT 1.83 cm (M/F) 1.5-2.5 GL Strain -16.2 % M-Mode Dimensions RVDd 3.53 cm (0.9-2.6) LVDd 4.06 cm (3.5-5.7) Ao Diam 2.36 cm (2.0-3.7) LVDs 2.71 cm (3.5-5.7) IVSd 1.33 cm (0.6-1.1) PWd 1.10 cm (0.6-1.1) EF (Teich) 60.50% EPSs 1.30 cm FS 31.90% EDV (Teich) 69.20 mL TAPSE 2.09 (<1.7) ESV (Teich) 27.30 mL LV Diastology E Decel Time 294 (160-240 msec) E/A Ratio 0.61 MED E' 4.0 (>= 7 cm/sec) MED A' 10.20 cm/s E'/MED E' Ratio 27.97 (<= 14) LAT E' 5.0 (>= 10 cm/sec) LAT A' 10.40 cm/s E/LAT E' Ratio 22.38 (<= 14) Aortic Valve LVOT Max 91.0 (70-110 cm/s) ЮЛИЯ Index 1.05 cm2/m2 LVOT VTI 24.91 cm AoV Peak Armando. 244.0 (50-130 cm/s) AO Peak GR. 22.30 mmHg AO Mean GR. 13.40 (<5 mmHg) AO VTI 67.3 (18-25 cm) ЮЛИЯ (VTI) 0.97 (2.5-4.5 cm2) Mitral Valve MV E Max Armando. 112.0 (40-130 cm/s) MVA VTI 2.45 (4.0-6.0 cm2) MV A Velocity 185.0 (40-130 cm/s) E/A Ratio 0.61 MV Decel. Time 294 (160-240 ms) MV Mean Gr. 6.50 (<2mmHg) MV PHT 74.0 ms Tricuspid Valve TR P. Velocity 267.00 cm/s RAP Estimate 10.00 mmHg RVSP 38.50 mmHg Left Ventricle The left ventricle is normal size. The left ventricular systolic function is low-normal. There is increased LV wall thickness. The septum is asynchronous. Diastolic function is indeterminate due to significant MAC. LVEF is 50%. Right Ventricle The right ventricle is normal size. The right ventricular systolic function is normal. Atria Left atrium is severely dilated. The right atrium size is normal. There is no Doppler evidence of interatrial shunt. Aortic Valve The aortic valve is moderately thickened. Moderate aortic stenosis is present. ЮЛИЯ by continuity equation is 1.2 cm2. Peak velocity 2.6 m/s. Mean AV gradient 12 mmHg. Max AV gradient 20 mmHg. Mild aortic regurgitation. Mitral Valve Severe mitral annular calcification (MAC). The mitral valve leaflets are moderately thickened. Mild mitral stenosis is present. Mean MV gradient is 6 mmHG at HR 65 bpm. MVA by PHT method is 2.2 cm2. Tricuspid Valve Tricuspid valve is grossly normal in structure and function. Mild tricuspid regurgitation. RVSP is 25 mmHg + RA pressure. Pulmonic Valve The pulmonary valve is normal in structure. Mild pulmonic regurgitation. Great Vessels The aortic root is normal in size. The IVC is not well visualized. Pericardium There is a small-sized, circumferential pericardial effusion present. The largest pockets measures 0.3 cm in diastole. No echo indications of tamponade. Pleural effusion is present. Other Information Study Quality: Fair Conclusion Low-normal LV systolic function (LVEF 50%). Asynchronous septum. Severe LA dilation. Severe MAC. Mild MR, mild MS (mean MV gradient 6 mmHg at HR 65 bpm - MVA by PHT method is 2.2 cm2). Moderate (ЮЛИЯ by continuity equation is 1.2 cm2. Peak velocity 2.6 m/s. Mean AV gradient 12 mmHg. Max AV gradient 20 mmHg). Mild TR, mild PI. Small-sized, circumferential pericardial effusion present. The largest pockets measures 0.3 cm in diastole. No echo indications of tamponade. Pleural effusion. Electronically signed by : Eladia Mar MD 03/21/2025 17:38:24
[2025-03-21 14:14] LABS: Folate 9.27 ng/mL; Vitamin B12 631 pg/mL (239-931)
[2025-03-21] MEDS: 0.9 % SODIUM CHLORIDE 250 ML 25 ML IV (14:15)
[2025-03-21] MEDS: PANTOPRAZOLE SODIUM 80 MG in 0.9 % SODIUM CHLORIDE 100 ML 100 MG IV (15:18)
[2025-03-21 15:43] LABS: Immature Granulocytes % 0.3 %; Mean Corpuscular HGB Conc 29.8 g/dL (31.8-35.4); Mean Corpuscular Hemoglobin 28.1 pg (27.0-31.2); Mean Corpuscular Volume 94.3 fl (81-99); Nucleated Red Blood Cells % 0 %; Platelet Count 237 K/mm3 (142-424); Red Blood Count 2.10 M/mm3 (4.20-5.40); Red Cell Distribution Width-SD 59.5 fL; White Blood Count 6.4 K/mm3 (4.8-10.8)
[2025-03-21 15:46] LABS: Hematocrit 19.8 % (37.0-47.0)
[2025-03-21 15:56] LABS: Albumin Level 2.6 g/dl (3.5-5.0); Chloride 97 mmol/L (98-107); Potassium 4.9 mmoL/L (3.5-5.1); Sodium 134 mmol/L (136-145)
[2025-03-21 15:59] LABS: Alanine Aminotransferase 15 U/L (12-78); Albumin/Globulin Ratio 0.7 (1.1-1.8); Alkaline Phosphatase 68 U/L (38-126); Anion Gap 8.9 mEq/L (5-15); Aspartate Amino Transferase 25 U/L (14-36); Bilirubin,Total 0.2 mg/dl (0.2-1.3); Blood Urea Nitrogen 79 mg/dl (7-17); Calcium 9.0 mg/dl (8.4-10.2); Carbon Dioxide 33 mmol/L (22.0-30.0); Creatinine Clearance Estimated 13 mL/min (50-200); Creatinine,Serum 3.20 mg/dl (0.52-1.04); Estimated Glomerular Filt Rate 14 ml/min (>60); GFR (African American) 17 ML/MIN (>60); Globulin 3.5 g/dL (1.3-3.2); Glucose 106 mg/dl (74-100); Total Protein,Serum 6.1 g/dl (6.3-8.2)
[2025-03-21 16:36] LABS: POC Glucose,Bedside 106 (70-110)
[2025-03-21 18:35] LABS: Hemoglobin 6.0 g/dL (12.2-16.2)
--- NOTE | 2025-03-21 18:43 | PC.NURSE ---
late entry: started administering first unit of blood at 1200. vss the first 15 mins and no complaints. 1228: pt complaining of cp, stating it feels like an elephant is sitting on my chest . stop infusion and notified mackenzie. obtained ekg and trops. v/s remained stable. no other symptoms at this time 1248:pt began having a headache and flank pain along with the chest pain, which pt complained of it getting worse over time. notified mackenzie again. at this time benadryl, bumex, hydroxyzine and zofran was administered. no fluids were administered due to pts chf. notified lab and blood was sent back to the blood bank. v/s remained stable throughout.
--- NOTE | 2025-03-21 18:55 | PC.NURSE ---
Addendum entered by Louann Morfin RN 03/21/25 21:40: blood infusion completed at 2018 Addendum entered by Louann Morfin RN 03/21/25 21:02: remaining patient vitals in TAR Original Note: pts H&H dropped to 5.9, 19.8, md notified and ordered another unit of blood. received blood but was unable to verify on the TAR with it saying locked out . spoke with kenia in blood bank about the situation with no success, blood verified with basil. 1714 preblood vs- 142/66 18 99(2l) 72 98.5o 1730 START-132/71 18 100(2l) 68 98.6o 1735 5min- 113/35 18 100(2l) 66 98.6o 1740 10min- 102/46 18 100(2l) 65 98.1o 1745 15 min- 125/68 18 99(2l) 64 98.5o 1800 30 min- 123/53 19 99(2l) 75 99.1ax 1815 45 min- 134/55 18 91ra 72 98.7ax 1830 taking a bath 1900 149/44 18 100(2l) 69 98.3o blood at 100ml/hr. report given to louann Naqvi
[2025-03-21] MEDS: TRAZODONE 50MG TABLET 25 MG PO (20:38)
[2025-03-21] MEDS: ATORVASTATIN 40MG TABLET 80 MG PO (20:38)
[2025-03-21] MEDS: CARVEDILOL 12.5MG TABLET 12.5 MG PO (20:38)
[2025-03-21] MEDS: MELATONIN 5MG TABLET 5 MG PO (20:39)
[2025-03-21] MEDS: humaLOG 100 UNITS/ML 10ML VIAL (SSI) SUBCUT (20:42)
[2025-03-21] MEDS: PANTOPRAZOLE 40MG VIAL 40 MG IV (20:42)
[2025-03-21 21:03] LABS: POC Glucose,Bedside 261 (70-110)
[2025-03-21 21:26] LABS: Hematocrit 23.5 % (37.0-47.0)
[2025-03-21 21:28] LABS: Hemoglobin 7.2 g/dL (12.2-16.2)
[2025-03-22] VITALS (19 sets, daily range): BP systolic 122–174; BP diastolic 39–71; PULSE 58–80; RESP 14–18; TEMP 36.6–37.6; O2SAT 96–100; BMI 24.6
[2025-03-22 06:11] LABS: Hematocrit 22.3 % (37.0-47.0); Immature Granulocytes % 0.2 %; Mean Corpuscular HGB Conc 30.9 g/dL (31.8-35.4); Mean Corpuscular Hemoglobin 28.0 pg (27.0-31.2); Mean Corpuscular Volume 90.7 fl (81-99); Nucleated Red Blood Cells % 0 %; Platelet Count 240 K/mm3 (142-424); Red Blood Count 2.46 M/mm3 (4.20-5.40); Red Cell Distribution Width-SD 64.1 fL; White Blood Count 9.4 K/mm3 (4.8-10.8)
[2025-03-22 06:18] LABS: Hemoglobin 6.9 g/dL (12.2-16.2)
--- NOTE | 2025-03-22 06:20 | PC.NURSE ---
notified hospitalist of hgb 6.9
[2025-03-22 06:31] LABS: Alanine Aminotransferase 15 U/L (12-78); Albumin Level 3.1 g/dl (3.5-5.0); Albumin/Globulin Ratio 1.2 (1.1-1.8); Alkaline Phosphatase 82 U/L (38-126); Anion Gap 11.1 mEq/L (5-15); Aspartate Amino Transferase 25 U/L (14-36); Bilirubin,Total 0.2 mg/dl (0.2-1.3); Blood Urea Nitrogen 77 mg/dl (7-17); Calcium 9.1 mg/dl (8.4-10.2); Carbon Dioxide 30 mmol/L (22.0-30.0); Chloride 102 mmol/L (98-107); Cholesterol 121 mg/dl (140-200); Creatinine Clearance Estimated 12 mL/min (50-200); Creatinine,Serum 3.80 mg/dl (0.52-1.04); Estimated Glomerular Filt Rate 11 ml/min (>60); GFR (African American) 14 ML/MIN (>60); Globulin 2.6 g/dL (1.3-3.2); Glucose 99 mg/dl (74-100); HDL Cholesterol 29 mg/dl (40-60); Magnesium 1.7 mg/dl (1.6-2.3); Phosphorous 5.8 mg/dl (2.5-4.5); Potassium 5.1 mmoL/L (3.5-5.1); Sodium 138 mmol/L (136-145); Total Protein,Serum 5.7 g/dl (6.3-8.2); Triglycerides 81 mg/dl (30-150)
[2025-03-22] MEDS: 0.9 % SODIUM CHLORIDE 250 ML 25 ML IV (06:58)
--- NOTE | 2025-03-22 08:29 | SW/DCPLANNER ---
Addendum entered by Mili Gardiner 03/24/25 15:26: I have arranged [facility] for this patient. Addendum entered by Mili Gardiner 03/24/25 09:58: Patient has been approved for SNF level of care per Anders. Patient will discharge back to [facility] today. Addendum entered by Mili Gardiner 03/24/25 09:01: Per Yu[facility] precert is still pending at this time. Addendum entered by Mili Gardiner 03/23/25 10:50: I have updated Anders / [facility] that patient may be ready for discharge tomorrow pending no setbacks. Anders simms/ [facility] stated that precert will be started today for patient to return SNF level of care once approved. Original Note: Patient currently resides at [facility] level of care. PT/OT has been ordered to evaluate patient today. I will continue to follow up w/ Anders at [facility] until medically stable for discharge. Discharge date is unknown at this time.
--- NOTE | 2025-03-22 09:19 | P.PN_ITS ---
<Statement entered by Que Sorenson MD - 03/25/25 17:29> Agree with [employer]ER note as documented Subjective *Date: 03/22/25 *Time: 12:01 Interval history: Patient doing well today, states that she rested last night without issues. She is receiving PRBCs and iron today. Vital signs remained stable. She denies chest pain, shortness of breath, abdominal pain, nausea, vomiting. Creatinine has bumped to 3.9, close monitoring of BMP, will place a Rosas for strict I's a nd O's. Medical Exam Vital signs and Labs for Last 24 Hours: Vital Signs Temp Pulse Pulse Resp BP BP Pulse Ox 03/22/25 07:05 98.9 F 67 16 137/56 L 100 03/22/25 07:00 99.2 F 68 16 145/56 H 99 03/22/25 06:57 03/22/25 06:55 99.3 F 67 16 139/49 L 99 03/22/25 06:50 98.8 F 69 16 148/48 H 99 03/22/25 06:48 99.7 F H 71 16 149/59 H 99 03/22/25 05:00 03/22/25 04:00 80 03/22/25 04:00 97.8 F 73 17 122/39 L 98 03/22/25 03:00 03/22/25 01:00 03/22/25 00:00 98.3 F 62 16 140/62 100 03/22/25 00:00 60 03/21/25 23:00 03/21/25 21:18 98.1 F 67 18 103/47 L 100 03/21/25 21:00 03/21/25 20:18 86 16 141/52 H 98 03/21/25 20:00 70 03/21/25 20:00 03/21/25 19:30 98.3 F 69 18 133/69 96 03/21/25 18:42 03/21/25 17:14 98.5 F 72 18 142/66 H 99 03/21/25 17:14 98.5 F 72 18 142/66 H 99 03/21/25 17:14 98.5 F 72 18 142/66 H 99 03/21/25 17:00 03/21/25 16:00 60 03/21/25 15:10 03/21/25 13:25 70 03/21/25 13:15 03/21/25 12:30 97.8 F 73 18 124/63 99 03/21/25 12:15 97.9 F 70 16 158/55 H 100 03/21/25 12:10 97.8 F 69 16 155/70 H 99 03/21/25 12:05 98.1 F 72 16 161/64 H 99 03/21/25 11:41 98.1 F 75 16 144/55 H 94 L 03/21/25 11:20 03/21/25 11:05 97.7 F 67 12 151/63 H 99 03/21/25 10:55 99 03/21/25 10:50 99.0 F 67 20 151/63 H 03/21/25 10:31 72 13 151/63 H 100 03/21/25 10:01 67 16 166/58 H 100 03/21/25 09:30 67 12 181/57 H 100 O2 Del Method O2 Flow Rate 03/22/25 07:05 03/22/25 07:00 03/22/25 06:57 Nasal Cannula 2 03/22/25 06:55 03/22/25 06:50 03/22/25 06:48 03/22/25 05:00 Room Air 03/22/25 04:00 03/22/25 04:00 Nasal Cannula 2 03/22/25 03:00 Nasal Cannula 2 03/22/25 01:00 Nasal Cannula 2 03/22/25 00:00 Nasal Cannula 2 03/22/25 00:00 03/21/25 23:00 Nasal Cannula 2 03/21/25 21:18 03/21/25 21:00 Nasal Cannula 2 03/21/25 20:18 03/21/25 20:00 03/21/25 20:00 Nasal Cannula 2 03/21/25 19:30 03/21/25 18:42 Nasal Cannula 2 03/21/25 17:14 03/21/25 17:14 03/21/25 17:14 03/21/25 17:00 Nasal Cannula 2 03/21/25 16:00 03/21/25 15:10 Room Air 03/21/25 13:25 03/21/25 13:15 Room Air 03/21/25 12:30 03/21/25 12:15 03/21/25 12:10 03/21/25 12:05 03/21/25 11:41 03/21/25 11:20 Room Air 03/21/25 11:05 Nasal Cannula 2 03/21/25 10:55 Room Air 03/21/25 10:50 Nasal Cannula 2 03/21/25 10:31 Nasal Cannula 2 03/21/25 10:01 Nasal Cannula 2 03/21/25 09:30 Intake and Output 03/21/25 03/22/25 03/22/25 23:59 07:59 15:59 Intake Total 600 / 600 0 / 0 Output Total 500 / 500 0 / 0 Balance 100 / 100 0 / 0 Intake: Intake, Oral Amount 600 / 600 Intake (Blood Product) Amt 0 / 0 Red Blood Cells Unit 0 / 0 [id number] Output: Output, Urine Amount 500 / 500 0 / 0 Other: Number of Unmeasured Voids 2 1 Number of Bowel Movements 2 Weight 65.453 kg Patient Weight 03/22/25 23:59 Weight 65.453 kg Laboratory Results - last 24 hr 03/21/25 08:35: PT 11.3, INR 1.02, APTT 24.0 03/21/25 09:10: Urine Color Yellow, Urine Appearance Clear, Urine pH 7.0, Ur Specific [place] 1.015, Urine Protein 2+ A, Urine Glucose (UA) 2+, Urine Ketones Negative, Urine Blood Negative, Urine Nitrate Negative, Urine Bilirubin Negative, Urine Urobilinogen 1.0, Ur Leukocyte Esterase Negative, Urine RBC None, Urine WBC Occasional, Ur Squamous Epith Cells 5-10, Urine Bacteria None 03/21/25 09:19: Stool Occult Blood Positive A 03/21/25 09:36: Blood Type O Positive, Antibody Screen Negative, Crossmatch (AHG) See Detail 03/21/25 11:25: Iron 63, TIBC 258 L, Iron Saturation [id number], Troponin I 0.02, Vitamin B12 631, Folate 9.27 03/21/25 12:39: Troponin I 0.02 03/21/25 13:10: Direct Antiglob Test Negative, Hemolysis Bld Bag Check No, Pre- Trans Blood Type O positive, Pre-Trans Vis Hemolysis No, Pre-Trans Antibody Scrn Negative, Post-Trans Blood Type O positive, Post-Tx Visible Hemolys No, Post- Trans Antibody Scrn Negative, Reaction Path Interpret Other 03/21/25 15:38: WBC 6.4, RBC 2.10 L, Hgb 6.0 L*, Hct 19.8 L*, MCV 94.3, MCH 28.1, MCHC 29.8 L, RDW 17.1, Plt Count 237, MPV 9.8, Neut % (Auto) 73.0, Lymph % (Auto) 14.6, [place] % (Auto) 10.8 H, Eos % (Auto) 1.1, Baso % (Auto) 0.2, Neut # (Auto) 4.7, Lymph # (Auto) 0.9, [place] # (Auto) 0.7, Eos # (Auto) 0.1, Baso # (Auto) 0.0, Sodium 134 L, Potassium 4.9, Chloride 97 L, Carbon Dioxide 33 H, Anion Gap 8.9, BUN 79 H, Creatinine 3.20 H, Estimated Creat Clear 13, Estimated GFR 14 L*, Est GFR ( Amer) 17 L*, Glucose 106 H, Calcium 9.0, Total Bilirubin 0.2, AST 25, ALT 15 D, Alkaline Phosphatase 68, Total Protein 6.1 L, Albumin 2.6 L D, Globulin 3.5 H, Albumin/Globulin Ratio 0.7 L 03/21/25 16:26: POC Glucose 106 03/21/25 20:36: POC Glucose 261 H 03/21/25 21:19: Hgb 7.2 L D, Hct 23.5 L 03/22/25 05:56: WBC 9.4 D, RBC 2.46 L, Hgb 6.9 L, Hct 22.3 L, MCV 90.7, MCH 28.0, MCHC 30.9 L, RDW 19.3 H, Plt Count 240, MPV 10.6 H, Neut % (Auto) 77.0, Lymph % (Auto) 9.7 L, [place] % (Auto) 11.8 H, Eos % (Auto) 1.1, Baso % (Auto) 0.2, Neut # (Auto) 7.2, Lymph # (Auto) 0.9, [place] # (Auto) 1.1 H, Eos # (Auto) 0.1, Baso # (Auto) 0.0, Sodium 138, Potassium 5.1, Chloride 102, Carbon Dioxide 30, Anion Gap 11.1, BUN 77 H, Creatinine 3.80 H, Estimated Creat Clear 12, Estimated GFR 11 L*, Est GFR ( Amer) 14 L*, Glucose 99, Calcium 9.1, Phosphorus 5.8 H, Magnesium 1.7, Total Bilirubin 0.2, AST 25, ALT 15, Alkaline Phosphatase 82, Total Protein 5.7 L, Albumin 3.1 L D, Globulin 2.6, Albumin/Globulin Ratio 1.2, Triglycerides 81, Cholesterol 121 L, LDL Cholesterol Direct 51.68 L, VLDL Cholesterol 16, HDL Cholesterol 29 L, Cholesterol/HDL Ratio 4.2 H I & O for Labs for Last 24 Hours: Intake & Output 03/19/25 03/20/25 03/21/25 03/22/25 23:59 23:59 23:59 23:59 Intake Total 600 / 600 0 / 0 Output Total 500 / 500 0 / 0 Balance 100 / 100 0 / 0 Weight 61.054 kg 65.453 kg Constitutional: Present no acute distress, chronically ill appearing and combative Head: Present atraumatic Eyes: Present as per HPI ENT: Present normal exam Neck: Present normal inspection Respiratory: Present CTA bilaterally, able to speak in complete sentences and symmetric chest movement; Absent wheezes or crackles Cardiac: Present Reg Rate and Rhythm, Regular Rate and Audible Murmur GI: Present soft, distention and hyperactive bowel sounds; Absent tenderness or guarding Rectal (female): Present deferred (female): Present deferred Extremities: Present normal inspection; Absent edema Skin: Present intact and pallor Neuro: Present Weakness, alert, awake and oriented x 3 Assessment and Plan *Assessment and plan (1) Chronic kidney disease, stage IV (severe): Status: Acute Category: Medical Code(s): N18.4 - Chronic kidney disease, stage 4 (severe) (2) Acute on chronic combined systolic and diastolic heart failure: Status: Acute Category: Medical Code(s): I50.43 - Acute on chronic combined systolic (congestive) and diastolic (congestive) heart failure (3) Anemia: Status: Acute Category: Medical Code(s): D64.9 - Anemia, unspecified (4) Chronic pericardial effusion: Status: Acute Category: Medical Code(s): I31.39 - Other pericardial effusion (noninflammatory) (5) COPD (chronic obstructive pulmonary disease): Status: Acute Category: Medical Code(s): J44.9 - Chronic obstructive pulmonary disease, unspecified (6) Anxiety: Status: Acute Category: Medical Code(s): F41.9 - Anxiety disorder, unspecified (7) Diabetes mellitus: Status: Acute Category: Medical Code(s): E11.9 - Type 2 diabetes mellitus without complications (8) Hypothyroid: Status: Acute Category: Medical Code(s): E03.9 - Hypothyroidism, unspecified (9) Complete left bundle branch block (LBBB): Status: Acute Category: Medical Code(s): I44.7 - Left bundle-branch block, unspecified Plan Ms. Higgins is an 84-year-old female that presented to the emergency department after an episode of dizziness and diarrhea. She has a history of chronic anemia and HFpEF. Patient became increasingly short of breath after being admitted to the floor, chest x-ray was obtained and I independently interpreted it showed left pleural effusion possible pneumonia. Chest CT was then ordered. Due to patient's shortness of breath, symptomatic anemia, HFpEF the ER physician requested admission, I agreed to admit the patient for further management. Problems addressed as follows: #Chronic kidney disease stage IV-V #Hypertension #Acute on chronic systolic and diastolic heart function ?After discussing with the family patient is meeting with the physician for a fistula placement in the coming weeks. 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 ?Records obtained from [facility] per my review, patient has combined heart failure with preserved EF and diastolic dysfunction. Moderate to severe aortic stenosis and mitral valve stenosis. She has a chronic history of congestive heart failure, BNP elevated to 5980. Initiated Bumex 2 mg IV. Will continue Bumex 2 mg IV twice a day. ?Plans to monitor strict I's and O's. Patient having unmeasured voids unable to determine urine output, will place Rosas for strict intake and output to ensure patient is making urine. ?Will hold isosorbide 60 mg, doxazosin 2 mg daily at this time, patient's blood pressure is normotensive. Will continue carvedilol 12.5 mg twice daily, continue Jardiance 10 mg daily. ?Cardiology consulted, echo showing severe MAC, severe LA dilation, small size pleural pericardial effusion 0.3 cm. No tamponade. LVEF 50%. ?Continue sodium bicarb 650 mg twice daily for metabolic acidosis. Patient does have a history of hyperkalemia, potassium stable at 5.1. ?Initial kidney function elevated at 3.5, baseline 2.6. Repeat creatinine 3.8 today. Will continue to monitor with serial BMPs. #Symptomatic anemia ? Patient hemoglobin on admission 6.6. Initiated 1 unit PRBCs, after approximately 30 minutes of infusion patient began to have 10/10 chest pain, stating that it felt like there was an elephant on her chest. She also complained of dizziness, headache, nausea. Blood products were immediately stopped at 12:55 PM, Benadryl 50 mg IV given. EKG obtained which showed sinus rhythm with a left bundle branch block, reviewing previous records this seems to be baseline for her. Stat troponin obtained, 0.02. Chest x-ray obtained which showed patient to have pulmonary edema, Bumex 2 mg IV given at that time. Patient remained normo/hypertensive and O2 saturation remained 100%. Patient seem to be very anxious at this time, hydroxyzine 25 mg given p.o. This is a home medication for her. Zofran given for nausea at this time as well. ?Patient received 1 unit PRBCs overnight and another 1 unit PRBCs this morning. H&H pending. Patient also received IV Venofer. ?Pathology appears that the patient did not have a transfusion reaction, suspect patient was having increased anxiety due to feelings of shortness of breath. ?Plans to transfuse for hemoglobin greater than 8. Will continue iron supplement. ?Plans to stop aspirin 81 mg daily at this time, start Protonix one-time dose 80 mg IV, scheduled Protonix 40 mg twice daily. Patient does take Protonix p.o. currently at home. Patient does deny coffee-ground emesis, bright red bleeding per rectum, does endorse dark stools (patient takes iron supplement, this is likely her baseline). No active signs of bleeding. ?Will continue to check CBC to monitor for anemia. #Diabetes mellitus ?Continue insulin glargine 5 units SQ at bedtime ?ACHS fingersticks, sliding scale insulin per protocol ?A1c pending #Anxiety: Continue Cymbalta 30 mg daily, continue hydroxyzine 25 mg 3 times daily as needed for anxiety. #Hyperlipidemia: Continue Lipitor 80 mg at bedtime. #Chronic pain: Continue oxycodone 5 mg every 8 hours as needed for moderate pain. #Constipation: Continue senna?docusate 2 tabs twice daily as needed for constipation, MiraLAX daily. #Hypothyroidism: Continue levothyroxine 75 mcg daily. Full code Diabetic diet PT OT consult, cards consult VTE?IPC's
[2025-03-22] MEDS: EMPAGLIFLOZIN 10MG TABLET 10 MG PO (09:29)
[2025-03-22] MEDS: BUMETANIDE 1MG/4ML VIAL 2 MG IV ×2 (09:29→16:01)
[2025-03-22] MEDS: CARVEDILOL 12.5MG TABLET 12.5 MG PO ×2 (09:29→20:57)
[2025-03-22] MEDS: LEVOTHYROXINE 75MCG (0.075MG) TAB 75 MCG PO (09:30)
[2025-03-22] MEDS: FERROUS SULFATE 325MG TABLET 325 MG PO (09:30)
[2025-03-22] MEDS: PANTOPRAZOLE 40MG VIAL 40 MG IV ×2 (09:30→20:57)
[2025-03-22] MEDS: LORATADINE 10MG TABLET 10 MG PO (10:10)
--- NOTE | 2025-03-22 11:08 | P.CONCA_ITS ---
History of Present Illness History of Present Illness Consult date: 03/22/25 Requesting physician: Atif Chung Chief complaint: Diarrhea and dizziness History of present illness: Hospitalist Note:Ms. Higgins is an 84-year-old female who presented to the emergency department today after an episode of dizziness, and diarrhea. She is a resident at [facility]. She has a extensive medical history of chronic kidney disease stage V, acute on chronic HFpEF, anemia, COPD, hypertension, hypothyroidism, insulin-dependent diabetes mellitus, GERD, chronic pain, and anxiety. Extensive workup in the emergency department revealed significant anemia, hemoglobin 6.6. Baseline hemoglobin from previous visits appears to be between 7 and 8. She also complained of shortness of breath, chest CT shows pulmonary edema with small left effusion, incidentally shows moderate pericardial effusion, lingular and left lower lobe atelectasis, underlying pneumonia not excluded. Lab work was remarkable for kidney dysfunction BUN 81, creatinine 3.5. Estimated GFR 13. BNP 5980. Serial troponins negative at 0.02. No leukocytosis noted, WBC 5.9. She does take aspirin 81 mg daily, not on any other blood thinners. She has previously been worked up at [place] and [facility] in [place] for her chronic anemia; takes daily iron supplement. Occult stool was positive?this could be from iron supplementation versus GI bleed versus hemorrhoidal bleeding. She also has a history of valvular stenosis (mitral and aortic), echo from [facility] 02/15 showed EF of 55%, 1 to 2 cm pericardial effusion. Upon arrival to the floor, patient's daughter is at bedside. Discussed with patient and daughter current condition and goals of care. Patient and daughter state that she would like everything done for her. She currently has an appointment with her transitional studies instructor in the next weeks for a fistula placement and dialysis. Her daughter also informed me that she was recently at [facility] from January 31 to February 13 due to a CHF exacerbation, pleural effusions, anemia. Will obtain records from [facility] for further evaluation of her stay. Her daughter does state that she had multiple thoracentesis during that time to drain the fluid off of her lungs. Patient's vital signs have been stable, O2 saturation is 100% on room air. Will consult cardiology for further evaluation of pleural effusion, LBBB, and HFpEF exacerbation. Cardiology note: Lyssa Higgins is an 84-year-old white female with a past medical history of COPD on 2 L nasal cannula at baseline, chronic constipation on laxatives with frequent bouts of diarrhea in between, chronic kidney disease, hypertension, diabetes mellitus, HFpEF, chronic anemia and chronic kidney disease who presented to emergency department yesterday with complaints of generalized weakness and syncope while having a bowel movement. EKG on admission showed normal sinus rhythm with a left bundle branch block at a rate of 69. Of note patient has a chronic left bundle branch block noted on previous EKGs. Serial troponins were negative. Hemoglobin was 6.6 (baseline 7-8). Creatinine was elevated at 3.2. BNP was elevated at 5980. Chest CT showed concern for pulmonary edema with a small left-sided pleural effusion and a moderate pericardial effusion. Daughter reports the patient was recently in [facility] and treated for both anemia and chronic left sided pleural effusion. She reports this is not new and she recently had the pleural effusion drained at [facility] during her recent admission. Patient was admitted for acute HFpEF exacerbation and anemia. Patient was diuresed over the evening and this morning reports soa has improved. LE edema is better. Repeat echo shows a stable pericaridal effusion without evendience of tamponade as seen previously on echo. Patient is recieving 2 units of PRBCs today and hgb is up to 6.9 this morning. [facility] Disclaimer: The information contained in this section may have been updated after the patient was seen, as this information can be updated by other users. Medical History Hypothyroid Diabetes mellitus Anemia COPD (chronic obstructive pulmonary disease) Anxiety HLD (hyperlipidemia) CKD (chronic kidney disease) Heart failure Surgical History H/O tubal ligation H/O cataract removal with insertion of prosthetic lens H/O hand surgery History of appendectomy Social History Smoking Status: Former smoker alcohol intake: never current occupational status: retired Travel in the last 8 weeks?: None Have you lived/traveled outside US in past 30 days?: No Contact w/someone who lives/traveled outside US past 30 days?: No Exposure to someone with infectious disease in past 14 days?: No Do you have a fever (greater than 100.4 F or 38 C)?: No Have you tested positive for COVID-19?: No Exposed to someone with COVID-19 in past 14 days?: No Do you have a sore throat?: No Do you have a cough?: No Do you have any weakness?: No Do you have any diarrhea?: No Are you experiencing any unusual bleeding?: No Do you have any muscle aches/pain?: No Do you have any abdominal pain?: No Are you experiencing loss of taste or smell?: No Review of Systems Review of Systems Review of systems:: pertinent systems reviewed and negative unless documented below ENT Ears, Nose, Mouth, and Throat: Reports dizziness *Cardiovascular Cardiovascular: Reports dyspnea *Respiratory Respiratory: Reports dyspnea *Genitourinary Comments: diarrhea *Neurologic Neurologic: Reports dizziness Exam Data for Last 24 hours Vital signs and Labs for Last 24 Hours: Temp Pulse Resp BP Pulse Ox O2 Del Method O2 Flow Rate 98.4 F 73 16 136/45 L 99 Nasal Cannula 2 03/22/25 10:03 03/22/25 10:03 03/22/25 10:03 03/22/25 10:03 03/22/25 10:03 03/22/25 08:00 03/22/25 08:00 Laboratory Results - last 24 hr 03/21/25 09:36: Blood Type O Positive, Antibody Screen Negative, Crossmatch ([facility]) See Detail 03/21/25 11:25: Iron 63, TIBC 258 L, Iron Saturation 24.52150, Troponin I 0.02, Vitamin B12 631, Folate 9.27 03/21/25 12:39: Troponin I 0.02 03/21/25 13:10: Direct Antiglob Test Negative, Crossmatch ([facility]) See Detail, Hemolysis Bld Bag Check No, Pre-Trans Blood Type O positive, Pre-Trans Vis Hemolysis No, Pre-Trans Antibody Scrn Negative, Post-Trans Blood Type O positive, Post-Tx Visible Hemolys No, Post-Trans Antibody Scrn Negative, Reaction Path Interpret Other 03/21/25 15:38: WBC 6.4, RBC 2.10 L, Hgb 6.0 L*, Hct 19.8 L*, MCV 94.3, MCH 28.1, MCHC 29.8 L, RDW 17.1, Plt Count 237, MPV 9.8, Neut % (Auto) 73.0, Lymph % (Auto) 14.6, Mcpherson % (Auto) 10.8 H, Eos % (Auto) 1.1, Baso % (Auto) 0.2, Neut # (Auto) 4.7, Lymph # (Auto) 0.9, Mcpherson # (Auto) 0.7, Eos # (Auto) 0.1, Baso # (Auto) 0.0, Sodium 134 L, Potassium 4.9, Chloride 97 L, Carbon Dioxide 33 H, Anion Gap 8.9, BUN 79 H, Creatinine 3.20 H, Estimated Creat Clear 13, Estimated GFR 14 L*, Est GFR ( Amer) 17 L*, Glucose 106 H, Calcium 9.0, Total Bilirubin 0.2, AST 25, ALT 15 D, Alkaline Phosphatase 68, Total Protein 6.1 L, Albumin 2.6 L D, Globulin 3.5 H, Albumin/Globulin Ratio 0.7 L 03/21/25 16:26: POC Glucose 106 03/21/25 20:36: POC Glucose 261 H 03/21/25 21:19: Hgb 7.2 L D, Hct 23.5 L 03/22/25 05:56: WBC 9.4 D, RBC 2.46 L, Hgb 6.9 L, Hct 22.3 L, MCV 90.7, MCH 28.0, MCHC 30.9 L, RDW 19.3 H, Plt Count 240, MPV 10.6 H, Neut % (Auto) 77.0, Lymph % (Auto) 9.7 L, Mcpherson % (Auto) 11.8 H, Eos % (Auto) 1.1, Baso % (Auto) 0.2, Neut # (Auto) 7.2, Lymph # (Auto) 0.9, Mcpherson # (Auto) 1.1 H, Eos # (Auto) 0.1, Baso # (Auto) 0.0, Sodium 138, Potassium 5.1, Chloride 102, Carbon Dioxide 30, Anion Gap 11.1, BUN 77 H, Creatinine 3.80 H, Estimated Creat Clear 12, Estimated GFR 11 L*, Est GFR ( Amer) 14 L*, Glucose 99, Calcium 9.1, Phosphorus 5.8 H, Magnesium 1.7, Total Bilirubin 0.2, AST 25, ALT 15, Alkaline Phosphatase 82, Total Protein 5.7 L, Albumin 3.1 L D, Globulin 2.6, Albumin/Globulin Ratio 1.2, Triglycerides 81, Cholesterol 121 L, LDL Cholesterol Direct 51.68 L, VLDL Cholesterol 16, HDL Cholesterol 29 L, Cholesterol/HDL Ratio 4.2 H I & O for Last 24 hours: Intake & Output 03/19/25 03/20/25 03/21/25 03/22/25 23:59 23:59 23:59 23:59 Intake Total 600 / 600 560 / 560 Output Total 500 / 500 0 / 0 Balance 100 / 100 560 / 560 Weight 134 lb 9.6 oz 144 lb 4.8 oz Constitutional Constitutional: no acute distress *Routine Respiratory Exam Respiratory: Present rhonchi and symmetric chest movement *Routine Cardiovascular Exam Cardiovascular: Present RRR, Normal S1 and Normal S2 *Routine Abdominal Exam Abdominal: Present soft and normoactive bowel sounds; Absent tenderness *Routine Extremities Exam Extremities: Present full ROM and normal capillary refill; Absent edema *Routine Skin Exam Skin: Present intact, dry and warm Detailed Neck Exam: Thyroids Thyroid: Absent bruit Meds Home Medications and Allergies Home Medications ?Medication ?Instructions ?Recorded ?Confirmed ?Type duloxetine 30 mg capsule,delayed 30 mg PO DAILY 03/21/25 History release levothyroxine 75 mcg tablet 75 mcg PO DAILY 07/28/22 0 03/21/25 History pantoprazole 40 mg tablet,delayed 40 mg PO DAILY 07/2803/21/25 History release atorvastatin 80 mg tablet 80 mg PO HS 05/28/24 5 History budesonide-formoterol HFA 160 2 puff inhalation BID 03/21/25 History mcg-4.5 mcg/actuation aerosol inhaler ferrous sulfate 325 mg (65 mg 325 mg PO DAILY 05/28/24 03/21/25 History iron) tablet,delayed release fluticasone propionate 50 1 spray intranasal DAILY 01/1403/21/25 History mcg/actuation nasal spray,suspension insulin glargine U-300 conc 300 5 unit SQ HS 05/28/24 03/21/25 History unit/mL (1.5 mL) subcutaneous pen (Toujeo SoloStar U-300 Insulin) insulin lispro 100 unit/mL See Protocol SQ ACHS 03/21/25 History subcutaneous pen (Humalog KwikPen (U-100) Insulin) ipratropium 0.5 mg-albuterol 3 mg 3 ml inhalation Q4HP PRN Shortness 05/28/24 03/21/25 History (2.5 mg base)/3 mL nebulization Of Breath soln sennosides 8.6 mg-docusate sodium 2 tab PO BIDP PRN Co nstipation 05/28/24 03/21/25 History 50 mg capsule loratadine 10 mg tablet 10 mg PO DAILY 08/19/2402/22 History melatonin 5 mg tablet 5 mg PO HS 08/19/24 03/21/25 History aspirin 81 mg tablet,delayed 81 mg PO DAILY 11/30/24 0 03/21/25 History release carvedilol 12.5 mg tablet 12.5 mg PO BID 11/30/2402/22 History hydralazine 50 mg tablet 50 mg PO TID 11/30/24 History insulin lispro 100 unit/mL 3 unit SQ TID 11/30/2402/22 History subcutaneous solution ondansetron 4 mg disintegrating 4 mg PO Q6HP PRN Nause a And 11/30/24 03/21/25 History tablet Vomiting trazodone 50 mg tablet 25 mg PO HS 11/30/24 5 History acetaminophen 325 mg tablet 650 mg PO DAILY 03/21/25 0 03/21/25 History albuterol sulfate 90 mcg/actuation 2 puff inhalation Q 4HP PRN 03/21/25 03/21/25 History aerosol inhaler Shortness Of Breath bumetanide 2 mg tablet 2 mg PO DAILY 03/21/2503/21 History doxazosin 2 mg tablet 2 mg PO HS 03/21/25 03/21/25 History empagliflozin 10 mg tablet 10 mg PO DAILY 03/21/25 History (Jardiance) isosorbide mononitrate 60 mg 60 mg PO DAILY 03/21/25 0 03/21/25 History tablet,extended release 24 hr oxycodone 5 mg tablet 5 mg PO Q8HP PRN Moderate Pa in 03/21/25 03/21/25 History (Scale Score 5-6) polyethylene glycol 3350 17 17 g PO SUTUTHSA 03/21/25 03/21/25 History gram/dose oral powder (Miralax) propylene glycol 0.6 % eye drops 1 drp Eye-Both QID 03/21/25 History (Systane Balance) sodium zirconium cyclosilicate 5 5 g PO DAILY 03/21/25 03/21/25 History gram oral powder packet (Lokelma) New Prescriptions to Start Prescriptions: Allergies Allergy/AdvReac Type Severity Reaction Status Date / Time adhesive tape Allergy Unknown Verified 06/20/24 11:26 allergy reaction ciprofloxacin Allergy Unknown Verified 06/20/24 11:26 allergy reaction codeine Allergy Unknown Verified 06/20/24 11:26 allergy reaction doxycycline Allergy Unknown Verified 06/20/24 11:26 allergy reaction erythromycin base Allergy Unknown Verified 06/20/24 11:26 allergy reaction latex Allergy Unknown Verified 06/20/24 11:26 allergy reaction Penicillins Allergy Unknown Verified 06/20/24 11:26 allergy reaction Sulfa (Sulfonamide Allergy Unknown Verified 06/20/24 11:26 Antibiotics) allergy reaction Assessment and Plan *Assessment and plan (1) CKD (chronic kidney disease): Status: Acute Category: Medical Code(s): N18.9 - Chronic kidney disease, unspecified (2) FIDEL (acute kidney injury): Status: Acute Category: Medical Code(s): N17.9 - Acute kidney failure, unspecified (3) Anemia: Status: Acute Category: Medical Code(s): D64.9 - Anemia, unspecified (4) Chronic anemia: Status: Acute Category: Medical Code(s): D64.9 - Anemia, unspecified (5) Heart failure with preserved ejection fraction: Status: Acute Category: Medical Code(s): I50.30 - Unspecified diastolic (congestive) heart failure Plan Acute on Chronic HFpEF Severe MAC Moderate / Mild MR/MS Stable pericaridal Effusion, no clear indication of Tamponade Chronic left sided pleural effusion Patient c/o soa, bilateral edema present yesterday, improved today after diuretics Chest CT concerning for pulmonary edema and small left pleural effusion. Pericardial effusion noted. Echo shows EF of 50 BNP 5980 on admission Serial Trops negative Strict I&Os Continue Bumex 2mg IV BID. No aldactone, hx of hyperkalemia. No Jardiance, CKD stage 5 Acute on chronic kidney disease Stage 5 Awaiting fistula placement Creatinine on admission 3.2, today 3.8. continue to trend Acute on Chronic anemia Hemoglobin on admission 6.6 (baseline 7-8). Recieving 2 units today Hgb this am up 6.9 Defer to pcp CV summary: EF remains stable at 50. Continue meds as outlined. Cards will continue to follow. Cardiac meds Bumex 2mg IV BID Carvedilol 12.5mg BID
[2025-03-22 11:42] LABS: POC Glucose,Bedside 141 (70-110)
[2025-03-22 11:42] LABS: POC Glucose,Bedside 136 (70-110)
[2025-03-22 12:08] LABS: Hematocrit 27.7 % (37.0-47.0)
[2025-03-22 12:09] LABS: Hemoglobin 8.8 g/dL (12.2-16.2)
[2025-03-22 12:29] LABS: Hemoglobin A1C 5.1 % (4.0-6.0)
[2025-03-22] MEDS: IRON SUCROSE COMPLEX 200 MG in 0.9 % SODIUM CHLORIDE 100 ML 220 MG IV (12:55)
--- NOTE | 2025-03-22 13:27 | HMH.OTEV ---
OT Inpatient Evaluation Rehab OT IP Evaluation Start: 03/21/25 15:27 Freq: ONCE Status: Active Protocol: Document 03/22/25 13:22 [facility] (Rec: 03/22/25 13:27 [facility] [id number]) Rehab OT IP Assessment Subjective History Pt oriented x 2 on arrival. Pt agreeable to engage in therapy evaluation. Pt was admitted on 03/21/25 due to Anemia, FIDEL, and GI bleed. History and physical: Ms. Higgins is an 84-year-old female who presented to the emergency department today after an episode of dizziness, and diarrhea. She is a resident at [facility] She has a extensive medical history of chronic kidney disease stage V, acute on chronic HFpEF, anemia, COPD, hypertension, hypothyroidism, insulin-dependent diabetes mellitus, GERD, chronic pain, and anxiety. Extensive workup in the emergency department revealed significant anemia, hemoglobin 6.6. Baseline hemoglobin from previous visits appears to be between 7 and 8. She also complained of shortness of breath, chest CT shows pulmonary edema with small left effusion, incidentally shows moderate pericardial effusion, lingular and left lower lobe atelectasis, underlying pneumonia not excluded. Lab work was remarkable for kidney dysfunction BUN 81, creatinine 3.5. Estimated GFR 13. BNP 5980. Serial troponins negative at 0.02. No leukocytosis noted, WBC 5.9. She does take aspirin 81 mg daily, not on any other blood thinners. She has previously been worked up at [place] and [facility] in [place] for her chronic anemia; takes daily iron supplement. Occult stool was positive?this could be from iron supplementation versus GI bleed versus hemorrhoidal bleeding. She also has a history of valvular stenosis (mitral and aortic), echo from [facility] 02/15 showed EF of 55%, 1 to 2 cm pericardial effusion. Subjective Prior to being in the hospital, pt was a resident at [place]. Pt was also being seen for skilled therapy at [facility]. Pt claims normally she is independent with feeding, but does require assistance with dressing and bathing. She is dependent upon staff for completion of all IADLs. She is able to transfer short distances with rolling walker; longer distances she uses a wheelchair. Objective Patient Orientation Person,Birthday Right Upper WFL Extremity Gross ROM Left Upper Extremity WFL Gross ROM Transfer Training Sit/Stand/Pivot Transfer Assist Level Minimal x 1 (25% assist) Chair Transfer Minimal x 1 (25% assist) Ability Chair Transfer Stand Pivot Technique Rehab OT IP prob,goals,plan Problems Date of Evaluation: 03/22/25 OT IP Problems Bed Mobility,Transfers,Balance,Self care,Safety Rehab Potential Rehab Potential Good Equipment Needs Assistive Devices Rolling / Wheeled Walker Plan OT intervention Plan Bed Mobility,Transfers,Balance,Self care,Safety, Therapeutic Exercise OT Plan Frequency Daily Duration LOS Discharge Goals Bed Mobility Ability Assistance x1 Sit to Stand Chair Contact Guard/Hand Hold Transfer Ability Chair Transfer Contact Guard/Hand Hold Ability Chair Transfer Stand Step Pivot Technique Chair Transfer Rolling Walker Assistive Devices Lower Body Dressing Minimal Assistance Ability Upper Body Dressing Standby Assistance Ability Performing Toilet Minimal Assistance Hygiene Ability Overall Commode/ Contact Guard Toilet Transfer Ability Commode/Toilet Sit to/from Ambulatory Transfer Technique Discharge Plan OT Discharge Plan Pt will continue to be seen for OT services while at [facility]. Pt would benefit from returning back to [facility] and continuing with skilled therapy services. Skilled therapy services are important in order to improve strength, safety, endurance, ADL independence, and functional transfers to reach OF. Eval Complexity Eval Charge Codes 69384 - Moderate Complexity PHYSICIAN CERTIFICATION: I certify the specified therapy services for Lyssa Higgins are required, authorized, and reviewed every 30 days.
[2025-03-22 14:17] LABS: Chloride 99 mmol/L (98-107)
[2025-03-22 14:18] LABS: Potassium 5.1 mmoL/L (3.5-5.1); Sodium 135 mmol/L (136-145)
[2025-03-22 14:21] LABS: Anion Gap 8.1 mEq/L (5-15); Blood Urea Nitrogen 77 mg/dl (7-17); Calcium 9.1 mg/dl (8.4-10.2); Carbon Dioxide 33 mmol/L (22.0-30.0); Creatinine Clearance Estimated 13 mL/min (50-200); Creatinine,Serum 3.50 mg/dl (0.52-1.04); Estimated Glomerular Filt Rate 13 ml/min (>60); GFR (African American) 15 ML/MIN (>60); Glucose 128 mg/dl (74-100)
--- OUTSIDE RECORDS SUMMARY | 2025-03-22 14:28 | XMS_ITS | Patient Health Record ---
Author Organization [id number] [facility] Address [address] [place], [place] [id number] Support Name Relationship Address Phone Lyssa Higgins Guarantor Unknown [phone] Reason For Referral No Information Plan Of Treatment No Information Insurance Providers Payer Name Payer Address Payer Phone Subscriber Number Group Number Insured Name Patient Relationship to Insured Coverage Start Date Coverage End Date [employer] PPO MEDICARE [address] [address] [place], [place] [id number] Lyssa Higgins Self - patient is the insured 3
[2025-03-22] MEDS: ISOSORBIDE MONO 60MG TAB.ER.24H 60 MG PO (16:00)
[2025-03-22 16:19] LABS: POC Glucose,Bedside 119 (70-110)
--- NOTE | 2025-03-22 17:47 | PC.NURSE ---
AOX4, 1 UNIT PRBCS AND IRON INFUSION TODAY. PT TOLERATED WELL WITH NO TRANSFUSION REACTION. 2LNC FOR O2 SUPPORT. SAT UP TO CHAIR FOR A FEW HOURS. PUREWICK IN PLACE. STRICT I/O.
[2025-03-22] MEDS: MELATONIN 5MG TABLET 5 MG PO (20:57)
[2025-03-22] MEDS: TRAZODONE 50MG TABLET 25 MG PO (20:57)
[2025-03-22] MEDS: ATORVASTATIN 40MG TABLET 80 MG PO (20:57)
[2025-03-22] MEDS: SODIUM CHLORIDE 0.9% 10ML VIAL 10 ML IV (20:57)
[2025-03-22] MEDS: INSULIN GLARGINE 100 UNITS/ML 3ML FLEXPEN 5 UNIT SUBCUT (21:01)
[2025-03-22] MEDS: humaLOG 100 UNITS/ML 10ML VIAL (SSI) SUBCUT (21:02)
[2025-03-22 21:04] LABS: POC Glucose,Bedside 201 (70-110)
[2025-03-23] VITALS (7 sets, daily range): BP systolic 117–162; BP diastolic 46–69; PULSE 60–75; RESP 16–18; TEMP 36.4–37.1; O2SAT 97–100; BMI 24.7
--- NOTE | 2025-03-23 04:09 | PC.NURSE ---
0410 Blue bags have been emptied, table wiped and ice filled. Patient does not need anything at this time.
--- NOTE | 2025-03-23 04:54 | PC.NURSE ---
PT is on 2l NC, A&OX4, has a pure wic in place. Pt is on a DM Diet. Pt has her call light with in reach will continue to follow the care plan. SMOOTH DOYLE RN
--- NOTE | 2025-03-23 05:12 | PC.NURSE ---
Pt is on 1 liter of 02 nc. Pt is very pleasant to talk with. Pt is on telemetry with NSR. Pt has a pure wic. SMOOTH DOYLE RN
[2025-03-23 06:20] LABS: Hematocrit 26.9 % (37.0-47.0); Hemoglobin 8.6 g/dL (12.2-16.2); Immature Granulocytes % 0.2 %; Mean Corpuscular HGB Conc 32.0 g/dL (31.8-35.4); Mean Corpuscular Hemoglobin 29.4 pg (27.0-31.2); Mean Corpuscular Volume 91.8 fl (81-99); Nucleated Red Blood Cells % 0 %; Platelet Count 210 K/mm3 (142-424); Red Blood Count 2.93 M/mm3 (4.20-5.40); Red Cell Distribution Width-SD 61.0 fL; White Blood Count 5.7 K/mm3 (4.8-10.8)
[2025-03-23] MEDS: LEVOTHYROXINE 75MCG (0.075MG) TAB 75 MCG PO (06:26)
[2025-03-23 06:27] LABS: POC Glucose,Bedside 84 (70-110)
[2025-03-23 06:38] LABS: Alanine Aminotransferase 13 U/L (12-78); Albumin Level 3.1 g/dl (3.5-5.0); Albumin/Globulin Ratio 1.1 (1.1-1.8); Alkaline Phosphatase 96 U/L (38-126); Anion Gap 8.7 mEq/L (5-15); Aspartate Amino Transferase 25 U/L (14-36); Bilirubin,Total 0.2 mg/dl (0.2-1.3); Blood Urea Nitrogen 74 mg/dl (7-17); Calcium 9.3 mg/dl (8.4-10.2); Carbon Dioxide 31 mmol/L (22.0-30.0); Chloride 102 mmol/L (98-107); Creatinine Clearance Estimated 12 mL/min (50-200); Creatinine,Serum 3.80 mg/dl (0.52-1.04); Estimated Glomerular Filt Rate 11 ml/min (>60); GFR (African American) 14 ML/MIN (>60); Globulin 2.7 g/dL (1.3-3.2); Glucose 86 mg/dl (74-100); Potassium 4.7 mmoL/L (3.5-5.1); Sodium 137 mmol/L (136-145); Total Protein,Serum 5.8 g/dl (6.3-8.2)
[2025-03-23] MEDS: BUMETANIDE 1MG/4ML VIAL 2 MG IV (09:28)
[2025-03-23] MEDS: CARVEDILOL 12.5MG TABLET 12.5 MG PO ×2 (09:29→21:14)
[2025-03-23] MEDS: LORATADINE 10MG TABLET 10 MG PO (09:29)
[2025-03-23] MEDS: ISOSORBIDE MONO 60MG TAB.ER.24H 60 MG PO (09:29)
[2025-03-23] MEDS: PANTOPRAZOLE 40MG VIAL 40 MG IV ×2 (09:30→21:16)
[2025-03-23] MEDS: FERROUS SULFATE 325MG TABLET 325 MG PO (09:30)
--- NOTE | 2025-03-23 09:54 | HMH.PTEV ---
Physical Therapy Evaluation Rehab PT IP Evaluation Start: 03/21/25 15:27 Freq: .once Status: Active Protocol: Document 03/23/25 09:49 SIVAN (Rec: 03/23/25 09:53 PHOANGUS [id number]) Subjective/History History History 84-year-old female who presented to the emergency department today after an episode of dizziness, and diarrhea. She is a resident at [facility]. She has a extensive medical history of chronic kidney disease stage V, acute on chronic HFpEF, anemia, COPD, hypertension, hypothyroidism, insulin-dependent diabetes mellitus, GERD, chronic pain, and anxiety. Extensive workup in the emergency department revealed significant anemia, hemoglobin 6.6. Baseline hemoglobin from previous visits appears to be between 7 and 8. She also complained of shortness of breath, chest CT shows pulmonary edema with small left effusion , incidentally shows moderate pericardial effusion, lingular and left lower lobe atelectasis, underlying pneumonia not excluded. Pt is resident of [facility] and reports she uses a RW for ambulating short distance only at baseline. Subjective Subjective Pt reports feeling much better this am and agrees to OOB mobility assessment. [facility] How much help from another person do you currently need... Turning from your None back to your side while in a flat bed without using bedrails? Moving from lying on None back to sitting on the side of a flat bed without using bedrails? Moving to and from a A little bed to a chair ( including a wheelchair)? Standing up from a A little chair using your arms? (e.g., wheelchair, bedside chair) Walking in hospital A little room? Climbing 3-5 steps A lot with a railing? Mobility Score 19 Mobility Level [facility] Mobility 6 Walk 10 steps or more Mobility Calculator Rehab PT IP Eval Objective Appearance Patient Behavior Appropriate Patient Orientation Person,Place,Time Difficulty following none instructions Speech Pattern Clear Ambulation Patient Able to Yes Ambulate Ambulation Observation IP General Gait Wide Based Gait,Shuffling Step Pattern Observation Ambulation Distance 3 (feet) Ambulation Assistive Rolling Walker Device Ambulation Ability Contact Guard/Hand Hold Balance Ability to Arise Able, uses arms to help Sitting Balance Steady, safe Standing Balance Steady, wide stance Dynamic Sitting Good Balance Ability Dynamic Standing Fair Balance Ability Transfers Bed Transfer Ability Supervision/Stand by Chair Transfer Contact Guard/Hand Hold Ability Sit to Stand Bed Contact Guard/Hand Hold Transfer Ability Sit to Stand Chair Contact Guard/Hand Hold Transfer Ability Rehab PT IP prob,goals,plan Problems Date of Evaluation: 03/23/25 PT IP Problems Bed Mobility,Transfers,Gait Rehab Potential Rehab Potential Good Plan PT Intervention Plan Bed Mobility,Transfers,Gait,Therapeutic Exercise PT Plan Frequency Daily Duration LOS Discharge Goals Bed Transfer Ability Independent Sit to Stand Chair Supervision/Stand by Transfer Ability Ambulation Assistive Rolling Walker Device Ambulation Distance 10 (feet) Discharge Plan PT Discharge Plan Pt is currently most appropriate to return to subacute rehab once medically stable for d/c. Skilled acute therapy services remain indicated in order to aid pt return to PLOF via transfer training, strengthening, and gait training. Eval Complexity Eval Charge Codes 10661 - High Complexity PHYSICIAN CERTIFICATION: I certify the specified therapy services for Lyssa Higgins are required, authorized, and reviewed every 30 days.
--- NOTE | 2025-03-23 10:54 | P.PN_ITS ---
Subjective Subjective Date: 03/23/25 Time: 08:00 Principal diagnosis: Diarrhea, dizziness, anemia, HFpEF, ckd Interval history: Patient doing well this morning. She denies chest pain or shortness of breath. Morning labs reviewed. Exam Data for Last 24 hours Vital signs and Labs for Last 24 Hours: Temp Pulse Resp BP Pulse Ox O2 Del Method O2 Flow Rate 98.0 F 63 16 150/69 H 100 Nasal Cannula 2 03/23/25 08:00 03/23/25 08:00 03/23/25 08:00 03/23/25 08:00 03/23/25 08:00 03/23/25 08:00 03/23/25 08:00 Laboratory Results - last 24 hr 03/21/25 09:36: Crossmatch (AHG) See Detail 03/21/25 14:21: POC Glucose 136 H 03/22/25 05:56: Hemoglobin A1c 5.1 03/22/25 11:21: POC Glucose 141 H 03/22/25 11:53: Hgb 8.8 L D, Hct 27.7 L 03/22/25 14:05: Sodium 135 L, Potassium 5.1, Chloride 99, Carbon Dioxide 33 H, Anion Gap 8.1, BUN 77 H, Creatinine 3.50 H, Estimated Creat Clear 13, Estimated GFR 13 L*, Est GFR ( Amer) 15 L*, Glucose 128 H D, Calcium 9.1 03/22/25 16:01: POC Glucose 119 H 03/22/25 20:56: POC Glucose 201 H 03/23/25 05:36: WBC 5.7 D, RBC 2.93 L, Hgb 8.6 L, Hct 26.9 L, MCV 91.8, MCH 29.4, MCHC 32.0, RDW 17.9 H, Plt Count 210, MPV 10.8 H, Neut % (Auto) 56.9, Lymph % (Auto) 24.0, [place] % (Auto) 15.9 H, Eos % (Auto) 2.6, Baso % (Auto) 0.4, Neut # (Auto) 3.3, Lymph # (Auto) 1.4, [place] # (Auto) 0.9, Eos # (Auto) 0.2, Baso # (Auto) 0.0, Sodium 137, Potassium 4.7, Chloride 102, Carbon Dioxide 31 H, Anion Gap 8.7, BUN 74 H, Creatinine 3.80 H, Estimated Creat Clear 12, Estimated GFR 11 L*, Est GFR ( Amer) 14 L*, Glucose 86 D, Calcium 9.3, Total Bilirubin 0.2, AST 25, ALT 13, Alkaline Phosphatase 96, Total Protein 5.8 L, Alb umin 3.1 L, Globulin 2.7, Albumin/Globulin Ratio 1.1 03/23/25 06:19: POC Glucose 84 I & O for Last 24 hours: Intake & Output 03/20/25 03/21/25 03/22/25 03/23/25 23:59 23:59 23:59 23:59 Intake Total 637 / 637 1040 / 1040 360 / 360 Output Total 500 / 500 1275 / 1275 150 / 150 Balance 137 / 137 -235 / -235 210 / 210 Weight 134 lb 9.6 oz 144 lb 4.8 oz 144 lb 11.2 oz Constitutional Constitutional: no acute distress *Routine Respiratory Exam Respiratory: Present CTA bilaterally and symmetric chest movement *Routine Cardiovascular Exam Cardiovascular: Present RRR, Normal S1 and Normal S2 *Routine Abdominal Exam Abdominal: Present soft and normoactive bowel sounds; Absent tenderness *Routine Extremities Exam Extremities: Present full ROM and normal capillary refill; Absent edema *Routine Skin Exam Skin: Present intact, dry and warm Detailed Neck Exam: Thyroids Thyroid: Absent bruit Progress Note: A&P Assessment and plan (1) CKD (chronic kidney disease): Status: Acute (2) FIDEL (acute kidney injury): Status: Acute (3) Anemia: Status: Acute (4) Chronic anemia: Status: Acute (5) Heart failure with preserved ejection fraction: Status: Acute Assessment and Plan Assessment and Plan for All Diagnoses:: Acute on Chronic HFpEF Severe MAC Moderate / Mild MR/MS Stable pericaridal Effusion, no clear indication of Tamponade Chronic left sided pleural effusion Shortness of breath and bilateral lower extremity edema has resolved with diuretics Chest CT on admission was concerning for pulmonary edema and small left pleural effusion. Pericardial effusion noted. Echo shows EF of 50 BNP 5980 on admission Serial Trops negative Change Bumex to 2 mg p.o. daily Acute on chronic kidney disease Stage 5 Awaiting fistula placement Creatinine on admission 3.2, today 3.8. continue to trend Acute on Chronic anemia Hemoglobin on admission 6.6 (baseline 7-8). s/p 2 units Hgb this am up 8.6 Defer to pcp CV summary: EF remains stable at 50. Patient has diuresed well, creatinine remains 3.8. At this time can change diuretics to Bumex 2 mg p.o. daily. Cardiology will sign off. Please contact service for any additional concerns. Cardiac meds Bumex 2mg p.o. daily Carvedilol 12.5mg BID
[2025-03-23] MEDS: BUMETANIDE 1 MG TABLET 2 MG PO (11:11)
[2025-03-23] MEDS: humaLOG 100 UNITS/ML 10ML VIAL (SSI) SUBCUT ×2 (11:15→21:13)
[2025-03-23 12:12] LABS: POC Glucose,Bedside 235 (70-110)
--- NOTE | 2025-03-23 12:27 | P.PN_ITS ---
<Statement entered by Que Sorenson MD - 03/25/25 17:21> Agree with VENDING MANAGER note as documented Subjective *Date: 03/23/25 *Time: 12:27 Interval history: Patient seems to be feeling much better this morning, states she rested well and is up in chair. Color looks much better, hemoglobin is stable at 8.8. Kidney function is worse, creatinine 3.8. Will continue to monitor. Medical Exam Vital signs and Labs for Last 24 Hours: Vital Signs Temp Pulse Pulse Resp BP Pulse Ox O2 Del Method 03/23/25 11:00 Nasal Cannula 03/23/25 09:00 Nasal Cannula 03/23/25 08:00 Nasal Cannula 03/23/25 08:00 98.0 F 63 16 150/69 H 100 Nasal Cannula 03/23/25 08:00 60 03/23/25 07:00 Nasal Cannula 03/23/25 05:00 Nasal Cannula 03/23/25 04:00 60 03/23/25 04:00 98.2 F 64 16 152/46 H 100 Nasal Cannula 03/23/25 03:00 Nasal Cannula 03/23/25 01:00 Nasal Cannula 03/23/25 00:00 60 03/22/25 23:38 98.4 F 58 L 18 163/59 H 99 Nasal Cannula 03/22/25 23:00 Nasal Cannula 03/22/25 21:00 Nasal Cannula 03/22/25 20:00 70 03/22/25 20:00 Nasal Cannula 03/22/25 20:00 98.3 F 72 16 154/41 H 100 Nasal Cannula 03/22/25 18:45 Nasal Cannula 03/22/25 17:00 Nasal Cannula 03/22/25 16:00 70 03/22/25 16:00 97.8 F 65 14 174/60 H 99 Nasal Cannula 03/22/25 15:00 Nasal Cannula 03/22/25 13:00 Nasal Cannula O2 Flow Rate 03/23/25 11:00 2 03/23/25 09:00 2 03/23/25 08:00 2 03/23/25 08:00 2 03/23/25 08:00 03/23/25 07:00 2 03/23/25 05:00 1 03/23/25 04:00 03/23/25 04:00 03/23/25 03:00 2 03/23/25 01:00 2 03/23/25 00:00 03/22/25 23:38 03/22/25 23:00 1 03/22/25 21:00 2 03/22/25 20:00 03/22/25 20:00 2 03/22/25 20:00 2 03/22/25 18:45 2 03/22/25 17:00 2 03/22/25 16:00 03/22/25 16:00 2 03/22/25 15:00 2 03/22/25 13:00 2 Intake and Output 03/22/25 03/23/25 03/23/25 23:59 07:59 15:59 Intake Total 240 / 1040 360 / 360 Output Total 875 / 1275 150 / 350 200 / 350 Balance -635 / -235 -150 / 10 160 / 10 Intake: Intake, Oral Amount 240 / 1040 360 / 360 Output: Output, Urine Amount 875 / 1275 150 / 350 200 / 350 Other: Number of Unmeasured Voids 0 0 0 Number of Bowel Movements 1 1 Weight 65.635 kg Patient Weight 03/23/25 23:59 Weight 65.635 kg Laboratory Results - last 24 hr 03/21/25 09:36: Crossmatch (AHG) See Detail 03/22/25 05:56: Hemoglobin A1c 5.1 03/22/25 14:05: Sodium 135 L, Potassium 5.1, Chloride 99, Carbon Dioxide 33 H, Anion Gap 8.1, BUN 77 H, Creatinine 3.50 H, Estimated Creat Clear 13, Estimated GFR 13 L*, Est GFR ( Amer) 15 L*, Glucose 128 H D, Calcium 9.1 03/22/25 16:01: POC Glucose 119 H 03/22/25 20:56: POC Glucose 201 H 03/23/25 05:36: WBC 5.7 D, RBC 2.93 L, Hgb 8.6 L, Hct 26.9 L, MCV 91.8, MCH 29.4, MCHC 32.0, RDW 17.9 H, Plt Count 210, MPV 10.8 H, Neut % (Auto) 56.9, Lymph % (Auto) 24.0, [place] % (Auto) 15.9 H, Eos % (Auto) 2.6, Baso % (Auto) 0.4, Neut # (Auto) 3.3, Lymph # (Auto) 1.4, [place] # (Auto) 0.9, Eos # (Auto) 0.2, Baso # (Auto) 0.0, Sodium 137, Potassium 4.7, Chloride 102, Carbon Dioxide 31 H, Anion Gap 8.7, BUN 74 H, Creatinine 3.80 H, Estimated Creat Clear 12, Estimated GFR 11 L*, Est GFR ( Amer) 14 L*, Glucose 86 D, Calcium 9.3, Total Bilirubin 0.2, AST 25, ALT 13, Alkaline Phosphatase 96, Total Protein 5.8 L, Albumin 3.1 L, Globulin 2.7, Albumin/Globulin Ratio 1.1 03/23/25 06:19: POC Glucose 84 03/23/25 11:12: POC Glucose 235 H I & O for Labs for Last 24 Hours: Intake & Output 03/20/25 03/21/25 03/22/25 03/23/25 23:59 23:59 23:59 23:59 Intake Total 637 / 637 1040 / 1040 360 / 360 Output Total 500 / 500 1275 / 1275 350 / 350 Balance 137 / 137 -235 / -235 Weight 61.054 kg 65.453 kg 65.635 kg Constitutional: Present no acute distress, chronically ill appearing and combative Head: Present atraumatic Eyes: Present as per HPI ENT: Present normal exam Neck: Present normal inspection Respiratory: Present CTA bilaterally, able to speak in complete sentences and symmetric chest movement; Absent wheezes or crackles Cardiac: Present Reg Rate and Rhythm, Regular Rate and Audible Murmur GI: Present soft, distention and hyperactive bowel sounds; Absent tenderness or guarding Rectal (female): Present deferred (female): Present deferred Extremities: Present normal inspection; Absent edema Skin: Present intact and dry Neuro: Present Weakness, alert, awake and oriented x 3 Assessment and Plan *Assessment and plan (1) Chronic kidney disease, stage IV (severe): Status: Acute Category: Medical Code(s): N18.4 - Chronic kidney disease, stage 4 (severe) (2) Acute on chronic combined systolic and diastolic heart failure: Status: Acute Category: Medical Code(s): I50.43 - Acute on chronic combined systolic (congestive) and diastolic (congestive) heart failure (3) Anemia: Status: Acute Category: Medical Code(s): D64.9 - Anemia, unspecified (4) Chronic pericardial effusion: Status: Acute Category: Medical Code(s): I31.39 - Other pericardial effusion (noninflammatory) (5) COPD (chronic obstructive pulmonary disease): Status: Acute Category: Medical Code(s): J44.9 - Chronic obstructive pulmonary disease, unspecified (6) Anxiety: Status: Acute Category: Medical Code(s): F41.9 - Anxiety disorder, unspecified (7) Diabetes mellitus: Status: Acute Category: Medical Code(s): E11.9 - Type 2 diabetes mellitus without complications (8) Hypothyroid: Status: Acute Category: Medical Code(s): E03.9 - Hypothyroidism, unspecified (9) Complete left bundle branch block (LBBB): Status: Acute Category: Medical Code(s): I44.7 - Left bundle-branch block, unspecified Plan Ms. Higgins is an 84-year-old female that presented to the emergency department after an episode of dizziness and diarrhea. She has a history of chronic anemia and HFpEF. Patient became increasingly short of breath after being admitted to the floor, chest x-ray was obtained and I independently interpreted it showed left pleural effusion possible pneumonia. Chest CT was then ordered. Due to patient's shortness of breath, symptomatic anemia, HFpEF the ER physician requested admission, I agreed to admit the patient for further management. Problems addressed as follows: #Chronic kidney disease stage IV-V #Hypertension #Acute on chronic systolic and diastolic heart function ?After discussing with the family patient is meeting with the physician for a fistula placement in the coming weeks. 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 ?Records obtained from [facility] per my review, patient has combined heart failure with preserved EF and diastolic dysfunction. Moderate to severe aortic stenosis and mitral valve stenosis. She has a chronic history of congestive heart failure, BNP elevated to 5980. Initiated Bumex 2 mg IV twice daily, transition today to oral Bumex 2 mg daily per cardiology. ?Plans to monitor strict I's and O's. Patient having unmeasured voids unable to determine urine output. Patient is making urine, 1275 mL out yesterday, 350 mL out today so far. Continuing to monitor strict I's and O's. ?Originally held isosorbide due to intermittent hypotension, restarted at home dose 60 mg daily. ?Cardiology consulted, echo showing severe MAC, severe LA dilation, small size pleural pericardial effusion 0.3 cm. No tamponade. LVEF 50%. ?Continue sodium bicarb 650 mg twice daily for metabolic acidosis. Patient does have a history of hyperkalemia, potassium stable at 4.7. ? Patient has known stage IV-V chronic kidney disease. Initial kidney function elevated at 3.5, baseline 2.6. Repeat creatinine 3.8 today. Will continue to monitor with serial BMPs. #Symptomatic anemia ?Patient received 2 units PRBCs yesterday along with IV Venofer 200 mg. H&H stable today at 8.6 and 26.9. Continue to monitor during admission. ?Plans to transfuse for hemoglobin greater than 8. Will continue iron supplement. ?Plans to stop aspirin 81 mg daily at this time, start Protonix one-time dose 80 mg IV, scheduled Protonix 40 mg twice daily. Patient does take Protonix p.o. currently at home. Patient does deny coffee-ground emesis, bright red bleeding per rectum, does endorse dark stools (patient takes iron supplement, this is likely her baseline). No active signs of bleeding. ?Will continue to check CBC to monitor for anemia. #Diabetes mellitus ?Continue insulin glargine 5 units SQ at bedtime ?ACHS fingersticks, sliding scale insulin per protocol ?A1c 5.1%. #Anxiety: Continue Cymbalta 30 mg daily, continue hydroxyzine 25 mg 3 times daily as needed for anxiety. #Hyperlipidemia: Continue Lipitor 80 mg at bedtime. #Chronic pain: Continue oxycodone 5 mg every 8 hours as needed for moderate pain. #Constipation: Continue senna?docusate 2 tabs twice daily as needed for constipation, MiraLAX daily. #Hypothyroidism: Continue levothyroxine 75 mcg daily. Full code Diabetic diet PT OT consult, cards consult VTE?IPC's
[2025-03-23 14:27] LABS: Anion Gap 11.6 mEq/L (5-15); Blood Urea Nitrogen 75 mg/dl (7-17); Calcium 9.4 mg/dl (8.4-10.2); Carbon Dioxide 31 mmol/L (22.0-30.0); Chloride 99 mmol/L (98-107); Creatinine Clearance Estimated 12 mL/min (50-200); Creatinine,Serum 3.70 mg/dl (0.52-1.04); Estimated Glomerular Filt Rate 12 ml/min (>60); GFR (African American) 14 ML/MIN (>60); Glucose 148 mg/dl (74-100); Potassium 4.6 mmoL/L (3.5-5.1); Sodium 137 mmol/L (136-145)
[2025-03-23 17:17] LABS: POC Glucose,Bedside 137 (70-110)
[2025-03-23] MEDS: ATORVASTATIN 40MG TABLET 80 MG PO (21:14)
[2025-03-23] MEDS: INSULIN GLARGINE 100 UNITS/ML 3ML FLEXPEN 5 UNIT SUBCUT (21:14)
[2025-03-23] MEDS: MELATONIN 5MG TABLET 5 MG PO (21:14)
[2025-03-23] MEDS: TRAZODONE 50MG TABLET 25 MG PO (21:15)
[2025-03-23] MEDS: SODIUM CHLORIDE 0.9% 10ML VIAL 10 ML IV (21:16)
[2025-03-23 21:30] LABS: POC Glucose,Bedside 181 (70-110)
[2025-03-24] VITALS: PULSE 60
[2025-03-24 04:00] VITALS: BP 125/57; PULSE 60; PULSE 61; RESP 18; TEMP 36.8; O2SAT 100; BMI 25.2
[2025-03-24 06:24] LABS: Hematocrit 27.7 % (37.0-47.0); Hemoglobin 8.6 g/dL (12.2-16.2); Immature Granulocytes % 0.2 %; Mean Corpuscular HGB Conc 31.0 g/dL (31.8-35.4); Mean Corpuscular Hemoglobin 28.6 pg (27.0-31.2); Mean Corpuscular Volume 92.0 fl (81-99); Nucleated Red Blood Cells % 0 %; Platelet Count 202 K/mm3 (142-424); Red Blood Count 3.01 M/mm3 (4.20-5.40); Red Cell Distribution Width-SD 59.1 fL; White Blood Count 6.5 K/mm3 (4.8-10.8)
[2025-03-24 06:26] LABS: Albumin Level 2.6 g/dl (3.5-5.0); Chloride 97 mmol/L (98-107); Potassium 4.8 mmoL/L (3.5-5.1); Sodium 133 mmol/L (136-145)
[2025-03-24 06:28] LABS: Creatinine Clearance Estimated 13 mL/min (50-200); Creatinine,Serum 3.40 mg/dl (0.52-1.04); Estimated Glomerular Filt Rate 13 ml/min (>60); GFR (African American) 16 ML/MIN (>60)
[2025-03-24 06:29] LABS: Alanine Aminotransferase 14 U/L (12-78); Albumin/Globulin Ratio 0.7 (1.1-1.8); Alkaline Phosphatase 83 U/L (38-126); Anion Gap 8.8 mEq/L (5-15); Aspartate Amino Transferase 24 U/L (14-36); Bilirubin,Total 0.3 mg/dl (0.2-1.3); Calcium 9.1 mg/dl (8.4-10.2); Carbon Dioxide 32 mmol/L (22.0-30.0); Globulin 3.6 g/dL (1.3-3.2); Glucose 72 mg/dl (74-100); Total Protein,Serum 6.2 g/dl (6.3-8.2)
[2025-03-24 06:40] LABS: POC Glucose,Bedside 79 (70-110)
[2025-03-24] MEDS: LEVOTHYROXINE 75MCG (0.075MG) TAB 75 MCG PO (06:43)
--- NOTE | 2025-03-24 07:00 | PC.NURSE ---
Pt is alert and Oriented X4, 2L NC O2. Pt only C/O Itching on her legs. SMOOTH DOYLE RN
[2025-03-24 07:22] LABS: Blood Urea Nitrogen 81 mg/dl (7-17)
[2025-03-24 08:00] VITALS: BP 143/50; PULSE 75; RESP 14; TEMP 36.8; O2SAT 99
[2025-03-24 08:04] LABS: Magnesium 1.4 mg/dl (1.6-2.3)
--- NOTE | 2025-03-24 08:27 | EXP.DC.SUM ---
General Admission date:: 03/21/25 Discharge date: 03/24/25 HPI HPI HPI: Ms. Higgins is an 84-year-old female who presented to the emergency department today after an episode of dizziness, and diarrhea. [place] [facility] [place] has a extensive medical history of chronic kidney disease stage V, acute on chronic HFpEF, anemia, COPD, hypertension, hypothyroidism, insulin-dependent diabetes mellitus, GERD, chronic pain, and anxiety. Extensive workup in the emergency department revealed significant anemia, hemoglobin 6.6. Baseline hemoglobin from previous visits appears to be between 7 and 8. She also complained of shortness of breath, chest CT shows pulmonary edema with small left effusion, incidentally shows moderate pericardial effusion, lingular and left lower lobe atelectasis, underlying pneumonia not excluded. Lab work was remarkable for kidney dysfunction BUN 81, creatinine 3.5. Estimated GFR 13. BNP 5980. Serial troponins negative at 0.02. No leukocytosis noted, WBC 5.9. She does take aspirin 81 mg daily, not on any other blood thinners. She has previously been worked up at [place] and [facility] in [place] for her chronic anemia; takes daily iron supplement. Occult stool was positive?this could be from iron supplementation versus GI bleed versus hemorrhoidal bleeding. She also has a history of valvular stenosis (mitral and aortic), echo from [facility] 02/15 showed EF of 55%, 1 to 2 cm pericardial effusion. Upon arrival to the floor, patient's daughter is at bedside. Discussed with patient and daughter current condition and goals of care. Patient and daughter state that she would like everything done for her. She currently has an appointment with her poultry inseminator in the next weeks for a fistula placement and dialysis. Her daughter also informed me that she was recently at [facility] from January 31 to February 13 due to a CHF exacerbation, pleural effusions, anemia. Will obtain records from [facility] for further evaluation of her stay. Her daughter does state that she had multiple thoracentesis during that time to drain the fluid off of her lungs. Patient's vital signs have been stable, O2 saturation is 100% on room air. Will consult cardiology for further evaluation of pleural effusion, LBBB, and HFpEF exacerbation. Hospital Course Hospital Course Hospital Course: Ms. Higgins is an 84-year-old female that presented to the emergency department after an episode of dizziness and diarrhea. She has a history of chronic anemia and HFpEF. Patient became increasingly short of breath after being admitted to the floor, chest x-ray was obtained and I independently interpreted it showed left pleural effusion possible pneumonia. Chest CT was then ordered. Due to patient's shortness of breath, symptomatic anemia, HFpEF the ER physician requested admission, I agreed to admit the patient for further management. Patient stable for [place] back [place] [facility] [place]. Anemia stable at discharge post 2 unit PRBC transfusion and iron transfusion. Hemoglobin stable at 8.6. Patient asymptomatic, and states she feels well today. Spoke with [facility] at [place] patient has appointment coming up 04/03/2025 at 2 PM. CKD should be monitored closely. Creatinine at discharge 3.4. Patient making appropriate amounts of urine during admission. Patient should continue Bumex 2 mg daily for HFpEF exacerbation and fluid overload. If patient requires inpatient management in the future, patient should be transferred to a facility that has nephrology. #Chronic kidney disease stage IV-V #Hypertension #Acute on chronic systolic and diastolic heart function ? Patient sees [facility] at [place], the [place] office. Spoke with the office, patient has a follow-up appointment on 04/12, moved to the patient's appointment up to 04/03/2025 at 2 PM. Discussed with nurse at the office the need for the patient to have repeat labs, they have already ordered them. Per patient plans for a fistula in the near future. ?Records obtained from [facility] per my review, patient has combined heart failure with preserved EF and diastolic dysfunction. Moderate to severe aortic stenosis and mitral valve stenosis. She has a chronic history of congestive heart failure, BNP elevated to 5980. ? Patient has had appropriate urine output during admission. ? Cardiology consulted, echo showing severe MAC, severe LA dilation, small size pleural pericardial effusion 0.3 cm. No tamponade. LVEF 50%. Cardiology recommends continuing Bumex 2 mg daily. ? Patient's potassium has been stable during admission, 4.8 at discharge. ? Patient has known CKD stage IV-V, creatinine peaked at 3.8, 3.4 day of discharge #Symptomatic anemia ?Patient received 2 units PRBCs yesterday along with IV Venofer 200 mg. H&H has remained stable since transfusion, hemoglobin 8.6, hematocrit 27.7. ? Patient should continue iron supplement 325 mg daily. ? Patient should hold aspirin 81 mg until cardiology/GI follow-up. Continue Protonix 40 mg daily. #Diabetes mellitus ?Continue insulin glargine 5 units SQ at bedtime ?Continue insulin lispro ACHS per fdc regimen. ?A1c 5.1%. #Anxiety: Continue Cymbalta 30 mg daily, continue hydroxyzine 25 mg 3 times daily as needed for anxiety. #Hyperlipidemia: Continue Lipitor 80 mg at bedtime. #Chronic pain: Continue oxycodone 5 mg every 8 hours as needed for moderate pain. #Constipation: Continue senna?docusate 2 tabs twice daily as needed for constipation, MiraLAX daily. #Hypothyroidism: Continue levothyroxine 75 mcg daily. Total time spent on discharge 37 minutes in counseling, documentation, chart review, and direct care with patient. Exam Data for Last 24 hours Vital signs and Labs for Last 24 Hours: Temp Pulse Resp BP Pulse Ox O2 Del Method O2 Flow Rate 98.2 F 61 18 125/57 L 100 Nasal Cannula 2 03/24/25 04:00 03/24/25 04:00 03/24/25 04:00 03/24/25 04:00 03/24/25 04:00 03/24/25 06:22 03/24/25 06:22 Laboratory Results - last 24 hr 03/22/25 05:56: Erythropoietin 10.3 03/23/25 11:12: POC Glucose 235 H 03/23/25 14:08: Sodium 137, Potassium 4.6, Chloride 99, Carbon Dioxide 31 H, Anion Gap 11.6, BUN 75 H, Creatinine 3.70 H, Estimated Creat Clear 12, Estimated GFR 12 L*, Est GFR ( Amer) 14 L*, Glucose 148 H D, Calcium 9.4 03/23/25 17:10: POC Glucose 137 H 03/23/25 21:01: POC Glucose 181 H 03/24/25 05:29: WBC 6.5, RBC 3.01 L, Hgb 8.6 L, Hct 27.7 L, MCV 92.0, MCH 28.6, MCHC 31.0 L, RDW 17.4, Plt Count 202, MPV 10.6 H, Neut % (Auto) 60.8, Lymph % (Auto) 19.6, [place] % (Auto) 15.5 H, Eos % (Auto) 3.7, Baso % (Auto) 0.2, Neut # (Auto) 3.9, Lymph # (Auto) 1.3, [place] # (Auto) 1.0, Eos # (Auto) 0.2, Baso # (Auto) 0.0, Sodium 133 L, Potassium 4.8, Chloride 97 L, Carbon Dioxide 32 H, Anion Gap 8.8, BUN 81 H, Creatinine 3.40 H, Estimated Creat Clear 13, Estimated GFR 13 L*, Est GFR ( Amer) 16 L*, Glucose 72 L D, Calcium 9.1, Magnesium 1.4 L D, Total Bilirubin 0.3, AST 24, ALT 14, Alkaline Phosphatase 83, Total Protein 6.2 L, Albumin 2.6 L D, Globulin 3.6 H, Albumin/Globulin Ratio 0.7 L 03/24/25 06:33: POC Glucose 79 I & O for Last 24 hours: Intake & Output 03/21/25 03/22/25 03/23/25 03/24/25 23:59 23:59 23:59 23:59 Intake Total 637 / 637 1040 / 1040 840 / 840 Output Total 500 / 500 1275 / 1275 1950 / 1950 300 / 300 Balance 137 / 137 -235 / -235 -1110 / -1110 -300 / -300 Weight 61.054 kg 65.453 kg 65.635 kg 66.95 kg Constitutional Constitutional: no acute distress, chronically ill appearing and cooperative *Routine HEENT Exam Head: Present normocephalic Eye: Present EOMI and PERRL ENT: Present mucous membranes moist *Routine Neck Exam Neck: Present supple; Absent JVD *Routine Respiratory Exam Respiratory: Present rhonchi, normal respiratory effort, able to speak in complete sentences and symmetric chest movement *Routine Cardiovascular Exam Cardiovascular: Present RRR and murmur *Routine Abdominal Exam Abdominal: Present soft and normoactive bowel sounds; Absent tenderness or distended *Routine Extremities Exam Extremities: Present normal capillary refill; Absent edema *Routine Skin Exam Skin: Present intact and dry; Absent rash *Routine Neurological Exam Neurological: Present alert, oriented X3, vision grossly intact and hearing grossly intact Results Data Completed and Pending Labs on day of discharge: Labs from last 24 hours 03/24/25 03/24/25 03/23/25 06:33 05:29 21:01 WBC 6.5 RBC 3.01 L Hgb 8.6 L Hct 27.7 L MCV 92.0 MCH 28.6 MCHC 31.0 L RDW 17.4 Plt Count 202 MPV 10.6 H Neut % (Auto) 60.8 Lymph % (Auto) 19.6 [place] % (Auto) 15.5 H Eos % (Auto) 3.7 Baso % (Auto) 0.2 Neut # (Auto) 3.9 Lymph # (Auto) 1.3 [place] # (Auto) 1.0 Eos # (Auto) 0.2 Baso # (Auto) 0.0 Sodium 133 L Potassium 4.8 Chloride 97 L Carbon Dioxide 32 H Anion Gap 8.8 BUN 81 H Creatinine 3.40 H Estimated Creat Clear 13 Estimated GFR 13 L* Est GFR ( Amer) 16 L* Glucose 72 L D POC Glucose 79 181 H Calcium 9.1 Magnesium 1.4 L D Erythropoietin Total Bilirubin 0.3 AST 24 ALT 14 Alkaline Phosphatase 83 Total Protein 6.2 L Albumin 2.6 L D Globulin 3.6 H Albumin/Globulin Ratio 0.7 L 03/23/25 03/23/25 03/23/25 17:10 14:08 11:12 WBC RBC Hgb Hct MCV MCH MCHC RDW Plt Count MPV Neut % (Auto) Lymph % (Auto) [place] % (Auto) Eos % (Auto) Baso % (Auto) Neut # (Auto) Lymph # (Auto) [place] # (Auto) Eos # (Auto) Baso # (Auto) Sodium 137 Potassium 4.6 Chloride 99 Carbon Dioxide 31 H Anion Gap 11.6 BUN 75 H Creatinine 3.70 H Estimated Creat Clear 12 Estimated GFR 12 L* Est GFR ( Amer) 14 L* Glucose 148 H D POC Glucose 137 H 235 H Calcium 9.4 Magnesium Erythropoietin Total Bilirubin AST ALT Alkaline Phosphatase Total Protein Albumin Globulin Albumin/Globulin Ratio 03/22/25 05:56 WBC RBC Hgb Hct MCV MCH MCHC RDW Plt Count MPV Neut % (Auto) Lymph % (Auto) [place] % (Auto) Eos % (Auto) Baso % (Auto) Neut # (Auto) Lymph # (Auto) [place] # (Auto) Eos # (Auto) Baso # (Auto) Sodium Potassium Chloride Carbon Dioxide Anion Gap BUN Creatinine Estimated Creat Clear Estimated GFR Est GFR ( Amer) Glucose POC Glucose Calcium Magnesium Erythropoietin 10.3 Total Bilirubin AST ALT Alkaline Phosphatase Total Protein Albumin Globulin Albumin/Globulin Ratio DS: Diagnosis Discharge Diagnosis (1) Chronic kidney disease, stage IV (severe): Status: Acute Code(s): N18.4 - Chronic kidney disease, stage 4 (severe) (2) Acute on chronic combined systolic and diastolic heart failure: Status: Acute Code(s): I50.43 - Acute on chronic combined systolic (congestive) and diastolic (congestive) heart failure (3) Anemia: Status: Acute Code(s): D64.9 - Anemia, unspecified (4) Chronic pericardial effusion: Status: Acute Code(s): I31.39 - Other pericardial effusion (noninflammatory) (5) COPD (chronic obstructive pulmonary disease): Status: Acute Code(s): J44.9 - Chronic obstructive pulmonary disease, unspecified (6) Anxiety: Status: Acute Code(s): F41.9 - Anxiety disorder, unspecified (7) Diabetes mellitus: Status: Acute Code(s): E11.9 - Type 2 diabetes mellitus without complications (8) Hypothyroid: Status: Acute Code(s): E03.9 - Hypothyroidism, unspecified (9) Complete left bundle branch block (LBBB): Status: Acute Code(s): I44.7 - Left bundle-branch block, unspecified Meds Home Medications and Allergies Home Medications ?Medication ?Instructions ?Recorded ?Confirmed ?Type duloxetine 30 mg capsule,delayed 30 mg PO DAILY 07/28/22 03/21/25 History release levothyroxine 75 mcg tablet 75 mcg PO DAILY 07/28/22 03/21/25 History pantoprazole 40 mg tablet,delayed 40 mg PO DAILY 07/28/22 03/21/25 History release atorvastatin 80 mg tablet 80 mg PO HS 05/28/24 03/21/25 History budesonide-formoterol HFA 160 2 puff inhalation BID 05/28/24 03/21/25 History mcg-4.5 mcg/actuation aerosol inhaler ferrous sulfate 325 mg (65 mg 325 mg PO DAILY 05/28/24 03/21/25 History iron) tablet,delayed release fluticasone propionate 50 1 spray intranasal DAILY 05/28/24 03/21/25 History mcg/actuation nasal spray,suspension insulin glargine U-300 conc 300 5 unit SQ HS 05/28/24 03/21/25 History unit/mL (1.5 mL) subcutaneous pen (Toujeo SoloStar U-300 Insulin) insulin lispro 100 unit/mL See Protocol SQ ACHS 05/28/24 03/21/25 History subcutaneous pen (Humalog KwikPen (U-100) Insulin) ipratropium 0.5 mg-albuterol 3 mg 3 ml inhalation Q4HP PRN Shortness 05/28/24 03/21/25 History (2.5 mg base)/3 mL nebulization Of Breath soln sennosides 8.6 mg-docusate sodium 2 tab PO BIDP PRN Constipation 05/28/24 03/21/25 History 50 mg capsule loratadine 10 mg tablet 10 mg PO DAILY 08/19/24 03/21/25 History melatonin 5 mg tablet 5 mg PO HS 08/19/24 03/21/25 History aspirin 81 mg tablet,delayed 81 mg PO DAILY 11/30/24 03/21/25 History release Held on 03/24/25. Instructions: Follow-up with GI/cardiology carvedilol 12.5 mg tablet 12.5 mg PO BID 11/30/24 03/21/25 History hydralazine 50 mg tablet 50 mg PO TID 11/30/24 03/21/25 History insulin lispro 100 unit/mL 3 unit SQ TID 11/30/24 03/21/25 History subcutaneous solution ondansetron 4 mg disintegrating 4 mg PO Q6HP PRN Nausea And 11/30/24 03/21/25 History tablet Vomiting trazodone 50 mg tablet 25 mg PO HS 11/30/24 03/21/25 History acetaminophen 325 mg tablet 650 mg PO DAILY 03/21/25 03/21/25 History albuterol sulfate 90 mcg/actuation 2 puff inhalation Q4HP PRN 03/21/25 03/21/25 History aerosol inhaler Shortness Of Breath bumetanide 2 mg tablet 2 mg PO DAILY 03/21/25 03/21/25 History doxazosin 2 mg tablet 2 mg PO HS 03/21/25 03/21/25 History empagliflozin 10 mg tablet 10 mg PO DAILY 03/21/25 03/21/25 History (Jardiance) isosorbide mononitrate 60 mg 60 mg PO DAILY 03/21/25 03/21/25 History tablet,extended release 24 hr oxycodone 5 mg tablet 5 mg PO Q8HP PRN Moderate Pain 03/21/25 03/21/25 History (Scale Score 5-6) polyethylene glycol 3350 17 17 g PO SUTUTHSA 03/21/25 03/21/25 History gram/dose oral powder (Miralax) propylene glycol 0.6 % eye drops 1 drp Eye-Both QID 03/21/25 03/21/25 History (Systane Balance) sodium zirconium cyclosilicate 5 5 g PO DAILY 03/21/25 03/21/25 History gram oral powder packet (Lokelma) New Prescriptions to Start Prescriptions: Allergies Allergy/AdvReac Type Severity Reaction Status Date / Time adhesive tape Allergy Unknown Verified 06/20/24 11:26 allergy reaction ciprofloxacin Allergy Unknown Verified 06/20/24 11:26 allergy reaction codeine Allergy Unknown Verified 06/20/24 11:26 allergy reaction doxycycline Allergy Unknown Verified 06/20/24 11:26 allergy reaction erythromycin base Allergy Unknown Verified 06/20/24 11:26 allergy reaction latex Allergy Unknown Verified 06/20/24 11:26 allergy reaction Penicillins Allergy Unknown Verified 06/20/24 11:26 allergy reaction Sulfa (Sulfonamide Allergy Unknown Verified 06/20/24 11:26 Antibiotics) allergy reaction Discharge Plan Disposition Patient Disposition: [facility] Condition: Fair Discharge Order Discharge Orders: Discharge Order (Routine); Ordered 03/24/25 Ordered By: Judy Morales Follow up Plan Follow up with: Erica Grullon APRN [Nurse Practitioner, Cardiology] - Enter time for follow up Bashir Dick MD [Referring, Nephrology] - 04/03/25 2:00 pm Rea Spencer APRN [Nurse Practitioner, Gastroenterology] - 1 month Prescriptions/Medication Reconciliation: Continued levothyroxine 75 mcg tablet 75 mcg PO DAILY pantoprazole 40 mg tablet,delayed release (DR/EC) 40 mg PO DAILY Patient Comments: TAKE 1 TABLET BY MOUTH EVERY DAY duloxetine 30 mg capsule,delayed release(DR/EC) 30 mg PO DAILY atorvastatin 80 mg Tablet 80 mg PO HS ipratropium-albuterol 0.5 mg-3 mg(2.5 mg base)/3 mL Solution For Nebulization 3 ml INHALATION Q4HP PRN (Reason: Shortness Of Breath) ferrous sulfate 325 mg (65 mg iron) Tablet,Delayed Release (Dr/Ec) 325 mg PO DAILY fluticasone propionate 50 mcg/actuation [place],Suspension 1 spray INTRANASAL DAILY Rx Instructions: administer into each nostril insulin lispro [Humalog KwikPen Insulin] 100 unit/mL Insulin Pen See Protocol SQ ACHS Protocol: Insulin Corrective Low-Dose Regimen Condition: Fingerstick Blood Glucose Dose/Route: Insulin Units Condition: 151-200 mg/dl Dose/Route: 2 unit/SQ Condition: 201-250 mg/dl Dose/Route: 4 units/SQ Condition: 251-300 mg/dl Dose/Route: 6 units/SQ Condition: 301-350 mg/dl Dose/Route: 8 units/SQ Condition: 351-400 mg/dl Dose/Route: 10 units/SQ Condition: 401-450 mg/dl Dose/Route: 12 units/SQ Condition: > 450 mg/dl Dose/Route: CALL MD Protocol Text: Low Intensity Sliding Scale Insulin budesonide-formoterol 160-4.5 mcg/actuation Hfa Aerosol Inhaler 2 puff INHALATION BID insulin glargine U-300 conc [Toujeo SoloStar U-300 Insulin] 300 unit/mL (1.5 mL) Insulin Pen 5 unit SQ HS sennosides-docusate sodium 8.6-50 mg Capsule 2 tab PO BIDP PRN (Reason: Constipation) loratadine 10 mg Tablet 10 mg PO DAILY melatonin 5 mg Tablet 5 mg PO HS carvedilol 12.5 mg tablet 12.5 mg PO BID trazodone 50 mg tablet 25 mg PO HS hydralazine 50 mg tablet 50 mg PO TID insulin lispro 100 unit/mL solution 3 unit SQ TID ondansetron 4 mg tablet,disintegrating 4 mg PO Q6HP PRN (Reason: Nausea And Vomiting) Systane Balance 0.6 % Drops 1 drp Eye-Both QID Jardiance 10 mg tablet 10 mg PO DAILY Lokelma 5 gram powder in packet 5 g PO DAILY acetaminophen 325 mg tablet 650 mg PO DAILY bumetanide 2 mg tablet 2 mg PO DAILY albuterol sulfate 90 mcg/actuation HFA aerosol inhaler 2 puff INHALATION Q4HP PRN (Reason: Shortness Of Breath) doxazosin 2 mg tablet 2 mg PO HS oxycodone 5 mg Tablet 5 mg PO Q8HP PRN (Reason: Moderate Pain (Scale Score 5-6)) isosorbide mononitrate 60 mg tablet extended release 24 hr 60 mg PO DAILY polyethylene glycol 3350 [Miralax] 17 gram/dose powder 17 g PO SUTUTHSA Held aspirin 81 mg tablet,delayed release (DR/EC) 81 mg PO DAILY Hold Instructions: Follow-up with GI/cardiology Problem Reconciliation Problems Reviewed?: Yes Patient Discharge Instructions ACTIVITY: Continue current activity DIET: continue same diet Patient Instructions: Anemia: How Food and Vitamins Can Help, Anemia, DI for Kidney Failure, DI for Gastrointestinal Bleeding, Stop Light Heart Failure Print Language: Tristanian Providers Primary Care Provider: Provider,Referral Admit Provider: Ivan Hammer Attending Provider: Ivan Hammer
[2025-03-24] MEDS: CARVEDILOL 12.5MG TABLET 12.5 MG PO (09:06)
[2025-03-24] MEDS: PANTOPRAZOLE 40MG TABLET 40 MG PO (09:06)
[2025-03-24] MEDS: FERROUS SULFATE 325MG TABLET 325 MG PO (09:06)
[2025-03-24] MEDS: LORATADINE 10MG TABLET 10 MG PO (09:06)
[2025-03-24] MEDS: BUMETANIDE 1 MG TABLET 2 MG PO (09:06)
[2025-03-24] MEDS: ISOSORBIDE MONO 60MG TAB.ER.24H 60 MG PO (09:06)
[2025-03-24] MEDS: ONDANSETRON 4MG/2ML VIAL 4 MG IV (09:12)
--- NOTE | 2025-03-24 13:42 | PC.NURSE ---
called report to ilia at [facility]
== END 2025-03-24 15:40 | DRG 291 ==
LOC: ER 10:32 → 2ND 10:48
PROVIDERS: Internal Medicine; Student in an Organized Health Care Education/Training Program; Admitting Provider Internal Medicine Adolescent Medicine; Emergency Provider Student in an Organized Health Care Education/Training Program; Visit Provider Internal Medicine Adolescent Medicine
DX: I13.2 Hypertensive heart and chronic kidney disease with heart failure and with stage 5 chronic kidney disease, or end stage renal disease (principal); I50.33 Acute on chronic diastolic (congestive) heart failure; D62 Acute posthemorrhagic anemia; K92.2 Gastrointestinal hemorrhage, unspecified; I31.39 Other pericardial effusion (noninflammatory); N18.5 Chronic kidney disease, stage 5; N17.9 Acute kidney failure, unspecified; J44.9 Chronic obstructive pulmonary disease, unspecified; F41.9 Anxiety disorder, unspecified; E03.9 Hypothyroidism, unspecified; I44.7 Left bundle-branch block, unspecified; E11.22 Type 2 diabetes mellitus with diabetic chronic kidney disease; G89.29 Other chronic pain; K21.9 Gastro-esophageal reflux disease without esophagitis; I08.0 Rheumatic disorders of both mitral and aortic valves; D63.1 Anemia in chronic kidney disease; E78.5 Hyperlipidemia, unspecified; K59.09 Other constipation; R55 Syncope and collapse; Z79.890 Hormone replacement therapy; Z79.4 Long term (current) use of insulin; Z79.51 Long term (current) use of inhaled steroids; Z79.82 Long term (current) use of aspirin; Z79.84 Long term (current) use of oral hypoglycemic drugs; Z79.899 Other long term (current) drug therapy; Z88.1 Allergy status to other antibiotic agents; Z91.040 Latex allergy status; Z88.0 Allergy status to penicillin; Z88.2 Allergy status to sulfonamides; Z91.048 Other nonmedicinal substance allergy status; Z87.891 Personal history of nicotine dependence
CPT/HCPCS: 36415; 36430; 71045; 71250; 80048; 80053; 80061; 81001; 82272; 82607; 82668; 82746; 82803; 82962; 83036; 83540; 83550; 83735; 83880; 84100; 84484; 85014; 85018; 85025; 85610; 85730; 86078; 86850; 93005; 93306; 97116; 97163; 97166; 97530; 97535; G0328; J1200; J1756; J1939; J2405; J2470; J7050; J7120; P9016

== ENCOUNTER 2025-05-03 12:00 | Emergency (ER) | payer MEDICARE, SELFPAY ==
--- OUTSIDE RECORDS SUMMARY | 2025-03-25 05:00 | XMS_ITS ---
Author Organization [facility] Address [address] [place] [address] Phone [phone] Care Team Providers Care Promotion Manager Name Role Phone Lyssa Trejo Unavailable [phone] Migration, Provider Unavailable Unavailable REASON FOR VISIT EMR-Steven Encounters Encounter Location Date Provider Diagnosis [facility] [address] [place] [address] 03/25/2025 Provider Migration Plan Of Treatment No Information Progress Notes * LYSSA SAABDOB:[birth year] (84 yo F)Acc No.[id number]:03/25/2025 Patient: Lisa GREENELYSSA JACOBS :1940 A ge:84 Y S ex:Female [facility] [address] Subjective: * Chief Complaints: * E MR-Steven * * Date:
--- OUTSIDE RECORDS SUMMARY | 2025-03-26 05:00 | XMS_ITS ---
Author Organization [employer] [facility] bertha [facility] Address [address] [place] [address] Phone [phone] Care Team Providers Care Union Laborer Name Role Phone Lyssa Trejo Unavailable [phone] Migration, Provider Unavailable Unavailable REASON FOR VISIT EMR-Steven Medications Medication SIG (Take, Route, Frequency, Duration) Notes Start Date End Date Status Ferrous Sulfate 325 (65 Fe) MG Tablet Oral Active Ventolin HFA 108 (90 Base) MCG/ACT Aerosol Solution Inhalation Active FLUZONE HIGH-DOSE 2019-20 (PF) 180 MCG/0.5 ML INTRAMUSCULAR SYRINGE *Reorder from [employer] for eRx and Interaction Alerts* Active Nystatin 080017 UNIT/GM Powder External Active Nitroglycerin 0.4 MG Tablet Sublingual Sublingual Active ULTRA-FINE SHORT PEN NEEDLE 31 gauge x 5/16 NEEDLE, DISPOSABLE MISCELLANEOUS *Reorder from [employer] for eRx and Interaction Alerts* Active Cephalexin 500 MG Capsule Oral Active Atorvastatin Calcium 80 MG Tablet Oral Active Levothyroxine Sodium 75 MCG Tablet Oral Active NOVOLOG FLEXPEN U-100 INSULIN ASPART 100 UNIT/ML (3 ML) SUBCUTANEOUS *Reorder from [employer] for eRx and Interaction Alerts* Active Sodium Bicarbonate 650 MG Tablet Oral Active Lantus 100 UNIT/ML Solution Subcutaneous Active VITAMIN D2 1,250 MCG (50,000 UNIT) CAPSULE *Reorder from [employer] for eRx and Interaction Alerts* Active GaviLyte-G 236-22.74-6.74 -5.86 gram Solution Reconstituted Oral *Pick strength-form from [employer] for eRX* Active traZODone HCl 50 MG Tablet Oral Active DULoxetine HCl 30 MG Capsule Delayed Release Particles Oral Active Furosemide 80 MG Tablet Oral Active Fluconazole 100 MG Tablet Oral Active FLUTICASONE PROPIONATE 50 MCG/ACTUATION NASAL SPRAY,SUSPENSION *Reorder from [employer] for eRx and Interaction Alerts* Active Pantoprazole Sodium 40 MG Tablet Delayed Release Oral Active Amoxicillin-Pot Clavulanate 500-125 MG Tablet Oral Active Toujeo SoloStar 300 UNIT/ML Solution Pen-injector Subcutaneous Active Clopidogrel Bisulfate 75 MG Tablet Oral Active Anoro Ellipta 62.5-25 MCG/INH Aerosol Powder Breath Activated Inhalation *Pick strength-form from [employer] for eRX* Active Bystolic 5 MG Tablet Oral Active Social History Social History Additional Details Category Social Info Options Details Migrated Social History Migrated Social History Tobacco Years: Never smoker 06/26/2020 Encounters Encounter Location Date Provider Diagnosis [facility], [facility] [address] [place] [address] 03/26/2025 Provider Migration Plan Of Treatment No Information Progress Notes * KAISER JUDYMARIANELADOB:[birth year] (84 yo F)Acc No.[id number]:03/26/2025 Patient: LYSSA POLANCO :1940 A ge:84 Y S ex:Female Address:[address] [place] [address] Subjective: * Chief Complaints: * E MR-Steven * Social History: M igrated Social History: M igrated Social History: Tobacco Years: Never smoker 06/26/2020. * Medications: T akingBystolic 5 MG Tablet Oral Clopidogrel Bisulfate 75 MG Tablet Oral Pantoprazole Sodium 40 MG Tablet Delayed Release Oral FLUTICASONE PROPIONATE 50 MCG/ACTUATION NASAL SPRAY,SUSPENSION , Notes to Pharmacist: *Reorder from [employer] for eRx and Interaction Alerts*Cephalexin 500 MG Capsule Oral Levothyroxine Sodium 75 MCG Tablet Oral ULTRA-FINE SHORT PEN NEEDLE 31 gauge x 5/16 NEEDLE, DISPOSABLE MISCELLANEOUS , Notes to Pharmacist: *Reorder from [employer] for eRx and Interaction Alerts*Ferrous Sulfate 325 (65 Fe) MG Tablet Oral Atorvastatin Calcium 80 MG Tablet Oral Nitroglycerin 0.4 MG Tablet Sublingual Sublingual Nystatin 971629 UNIT/GM Powder External Ventolin HFA 108 (90 Base) MCG/ACT Aerosol Solution Inhalation Anoro Ellipta 62.5-25 MCG/INH Aerosol Powder Breath Activated Inhalation , Notes to Pharmacist: *Pick strength-form from [employer] for eRX*Lantus 100 UNIT/ML Solution Subcutaneous Sodium Bicarbonate 650 MG Tablet Oral traZODone HCl 50 MG Tablet Oral GaviLyte-G 236-22.74-6.74 -5.86 gram Solution Reconstituted Oral , Notes to Pharmacist: *Pick strength-form from [facility] for eRX*NOVOLOG FLEXPEN U-100 INSULIN ASPART 100 UNIT/ML (3 ML) SUBCUTANEOUS , Notes to Pharmacist: *Reorder from [facility] for eRx and Interaction Alerts*DULoxetine HCl 30 MG Capsule Delayed Release Particles Oral Fluconazole 100 MG Tablet Oral Furosemide 80 MG Tablet Oral VITAMIN D2 1,250 MCG (50,000 UNIT) CAPSULE , Notes to Pharmacist: *Reorder from [facility] for eRx and Interaction Alerts*Amoxicillin-Pot Clavulanate 500-125 MG Tablet Oral Toujeo SoloStar 300 UNIT/ML Solution Pen-injector Subcutaneous FLUZONE HIGH-DOSE 2019-20 (PF) 180 MCG/0.5 ML INTRAMUSCULAR SYRINGE , Notes to Pharmacist: *Reorder from [facility] for eRx and Interaction Alerts*Taking Bystolic 5 MG Tablet Oral Taking Clopidogrel Bisulfate 75 MG Tablet Oral Taking Pantoprazole Sodium 40 MG Tablet Delayed Release Oral Taking FLUTICASONE PROPIONATE 50 MCG/ACTUATION NASAL SPRAY,SUSPENSION , Notes to Pharmacist: *Reorder from [facility] for eRx and Interaction Alerts*Taking Cephalexin 500 MG Capsule Oral Taking Levothyroxine Sodium 75 MCG Tablet Oral Taking ULTRA- FINE SHORT PEN NEEDLE 31 gauge x 5/16 NEEDLE, DISPOSABLE MISCELLANEOUS , Notes to Pharmacist: *Reorder from [facility] for eRx and Interaction Alerts*Taking Ferrous Sulfate 325 (65 Fe) MG Tablet Oral Taking Atorvastatin Calcium 80 MG Tablet Oral Taking Nitroglycerin 0.4 MG Tablet Sublingual Sublingual Taking Nystatin 497559 UNIT/GM Powder External Taking Ventolin HFA 108 (90 Base) MCG/ACT Aerosol Solution Inhalation Taking Anoro Ellipta 62.5-25 MCG/INH Aerosol Powder Breath Activated Inhalation , Notes to Pharmacist: *Pick strength-form from [facility] for eRX*Taking Lantus 100 UNIT/ML Solution Subcutaneous Taking Sodium Bicarbonate 650 MG Tablet Oral Taking traZODone HCl 50 MG Tablet Oral Taking GaviLyte-G 236-22.74-6.74 -5.86 gram Solution Reconstituted Oral , Notes to Pharmacist: *Pick strength-form from [facility] for eRX*Taking NOVOLOG FLEXPEN U-100 INSULIN ASPART 100 UNIT/ML (3 ML) SUBCUTANEOUS , Notes to Pharmacist: *Reorder from [facility] for eRx and Interaction Alerts*Taking DULoxetine HCl 30 MG Capsule Delayed Release Particles Oral Taking Fluconazole 100 MG Tablet Oral Taking Furosemide 80 MG Tablet Oral Taking VITAMIN D2 1,250 MCG (50,000 UNIT) CAPSULE , Notes to Pharmacist: *Reorder from [facility] for eRx and Interaction Alerts*Taking Amoxicillin-Pot Clavulanate 500-125 MG Tablet Oral Taking Toujeo SoloStar 300 UNIT/ML Solution Pen-injector Subcutaneous Taking FLUZONE HIGH-DOSE 2018- (PF) 180 MCG/0.5 ML INTRAMUSCULAR SYRINGE , Notes to Pharmacist: *Reorder from [facility] for eRx and Interaction Alerts* * * Date:
--- OUTSIDE RECORDS SUMMARY | 2025-05-03 12:04 | XMS_ITS | Patient Health Record ---
Author Organization [id number] [facility] Address [address] [place], [place] [id number] Support Name Relationship Address Phone Lyssa Higgins Guarantor Unknown Reason For Referral No Information Plan Of Treatment No Information Insurance Providers Payer Name Payer Address Payer Phone Subscriber Number Group Number Insured Name Patient Relationship to Insured Coverage Start Date Coverage End Date [employer] PPO MEDICARE [address] [address] [place], [place] [id number] Lyssa Higgins Self - patient is the insured 3
[2025-05-03 12:05] VITALS: BP 122/49; PULSE 68; RESP 16; TEMP 36.9; O2SAT 95; BMI 24.7
--- OUTSIDE RECORDS SUMMARY | 2025-05-03 12:05 | XMS_ITS | Patient Health Record ---
Author Organization [employer] [facility] Address [address] [place] [address] Phone [phone] Care Team Providers Care Traveling Electrician Name Role Phone Josue Trejo Unavailable [phone] Migration, Provider Unavailable Unavailable Reason For Referral No Information Medications Medication SIG (Take, Route, Frequency, Duration) Notes Start Date End Date Status DULoxetine HCl 30 MG Capsule Delayed Release Particles Oral Active Amoxicillin-Pot Clavulanate 500-125 MG Tablet Oral Active Toujeo SoloStar 300 UNIT/ML Solution Pen-injector Subcutaneous Active FLUZONE HIGH-DOSE 2019-20 (PF) 180 MCG/0.5 ML INTRAMUSCULAR SYRINGE *Reorder from [facility] for eRx and Interaction Alerts* Active Anoro Ellipta 62.5-25 MCG/INH Aerosol Powder Breath Activated Inhalation *Pick strength-form from [facility] for eRX* Active Ventolin HFA 108 (90 Base) MCG/ACT Aerosol Solution Inhalation Active ULTRA-FINE SHORT PEN NEEDLE 31 gauge x 5/16 NEEDLE, DISPOSABLE MISCELLANEOUS *Reorder from [facility] for eRx and Interaction Alerts* Active Nystatin 387188 UNIT/GM Powder External Active Nitroglycerin 0.4 MG Tablet Sublingual Sublingual Active Cephalexin 500 MG Capsule Oral Active Atorvastatin Calcium 80 MG Tablet Oral Active Levothyroxine Sodium 75 MCG Tablet Oral Active NOVOLOG FLEXPEN U-100 INSULIN ASPART 100 UNIT/ML (3 ML) SUBCUTANEOUS *Reorder from [facility] for eRx and Interaction Alerts* Active GaviLyte-G 236-22.74-6.74 -5.86 gram Solution Reconstituted Oral *Pick strength-form from [facility] for eRX* Active traZODone HCl 50 MG Tablet Oral Active Sodium Bicarbonate 650 MG Tablet Oral Active Lantus 100 UNIT/ML Solution Subcutaneous Active Clopidogrel Bisulfate 75 MG Tablet Oral Active Furosemide 80 MG Tablet Oral Active Bystolic 5 MG Tablet Oral Active Ferrous Sulfate 325 (65 Fe) MG Tablet Oral Active Fluconazole 100 MG Tablet Oral Active FLUTICASONE PROPIONATE 50 MCG/ACTUATION NASAL SPRAY,SUSPENSION *Reorder from [facility] for eRx and Interaction Alerts* Active Pantoprazole Sodium 40 MG Tablet Delayed Release Oral Active VITAMIN D2 1,250 MCG (50,000 UNIT) CAPSULE *Reorder from [employer] for eRx and Interaction Alerts* Active Social History Social History Additional Details Category Social Info Options Details Migrated Social History Migrated Social History Tobacco Years: Never smoker 06/26/2020 Problems Problem Type SNOMED Code ICD Code Onset Dates Problem Status W/U Status Risk Notes Problem History of suspected exposure to biological agent (21063349103383 ) Encounter for observation for suspected exposure to other biological agents ruled out (Z03.818) 0 Active confirmed Encounters Encounter Location Date Provider Diagnosis [facility] [address] [place] [address] 03/25/2025 Provider Migration [facility] [address] [place] [address] 03/26/2025 Provider Migration Plan Of Treatment No Information
--- NOTE | 2025-05-03 12:07 | ED_ITS ---
<Statement entered by Jesus Ivory MD - 05/03/25 19:03> I was consulted by the LORRI, and we discussed the complexity of the problems being addressed. I approve the treatment and management plan for this patient's care in the emergency department, thus performing a substantive portion of the medical decision making. Jesus Ivory MD Discharge Plan Disposition Patient Disposition: Home, Self-Care Condition: Good Prescriptions Prescriptions: New Lokelma 10 gram powder in packet 10 g PO ONCE Qty: 11 0RF No Action levothyroxine 75 mcg tablet 75 mcg PO DAILY pantoprazole 40 mg tablet,delayed release (DR/EC) 40 mg PO DAILY Patient Comments: TAKE 1 TABLET BY MOUTH EVERY DAY duloxetine 30 mg capsule,delayed release(DR/EC) 30 mg PO DAILY atorvastatin 80 mg Tablet 80 mg PO HS ipratropium-albuterol 0.5 mg-3 mg(2.5 mg base)/3 mL Solution For Nebulization 3 ml INHALATION Q4HP PRN (Reason: Shortness Of Breath) ferrous sulfate 325 mg (65 mg iron) Tablet,Delayed Release (Dr/Ec) 325 mg PO DAILY fluticasone propionate 50 mcg/actuation [place],Suspension 1 spray INTRANASAL DAILY Rx Instructions: administer into each nostril insulin lispro [Humalog KwikPen Insulin] 100 unit/mL Insulin Pen See Protocol SQ ACHS Protocol: Insulin Corrective Low-Dose Regimen Condition: Fingerstick Blood Glucose Dose/Route: Insulin Units Condition: 151-200 mg/dl Dose/Route: 2 unit/SQ Condition: 201-250 mg/dl Dose/Route: 4 units/SQ Condition: 251-300 mg/dl Dose/Route: 6 units/SQ Condition: 301-350 mg/dl Dose/Route: 8 units/SQ Condition: 351-400 mg/dl Dose/Route: 10 units/SQ Condition: 401-450 mg/dl Dose/Route: 12 units/SQ Condition: > 450 mg/dl Dose/Route: CALL MD Protocol Text: Low Intensity Sliding Scale Insulin budesonide-formoterol 160-4.5 mcg/actuation Hfa Aerosol Inhaler 2 puff INHALATION BID insulin glargine U-300 conc [Toujeo SoloStar U-300 Insulin] 300 unit/mL (1.5 mL) Insulin Pen 5 unit SQ HS sennosides-docusate sodium 8.6-50 mg Capsule 2 tab PO BIDP PRN (Reason: Constipation) loratadine 10 mg Tablet 10 mg PO DAILY melatonin 5 mg Tablet 5 mg PO HS carvedilol 12.5 mg tablet 12.5 mg PO BID aspirin 81 mg tablet,delayed release (DR/EC) 81 mg PO DAILY trazodone 50 mg tablet 25 mg PO HS hydralazine 50 mg tablet 50 mg PO TID insulin lispro 100 unit/mL solution 3 unit SQ TID ondansetron 4 mg tablet,disintegrating 4 mg PO Q6HP PRN (Reason: Nausea And Vomiting) Systane Balance 0.6 % Drops 1 drp Eye-Both QID Jardiance 10 mg tablet 10 mg PO DAILY Lokelma 5 gram powder in packet 5 g PO DAILY acetaminophen 325 mg tablet 650 mg PO DAILY bumetanide 2 mg tablet 2 mg PO DAILY albuterol sulfate 90 mcg/actuation HFA aerosol inhaler 2 puff INHALATION Q4HP PRN (Reason: Shortness Of Breath) doxazosin 2 mg tablet 2 mg PO HS oxycodone 5 mg Tablet 5 mg PO Q8HP PRN (Reason: Moderate Pain (Scale Score 5-6)) isosorbide mononitrate 60 mg tablet extended release 24 hr 60 mg PO DAILY polyethylene glycol 3350 [Miralax] 17 gram/dose powder 17 g PO SUTUTHSA Referrals Follow up/Referrals: Provider,Referral, MD [Primary Care Provider, Medical] - See instructions Activity Restrictions/Add. Instructions Additional Instructions/Restrictions: Please return to the emergency department with any worsening signs or symptoms. Please recheck your hemoglobin hematocrit, your creatinine and BUN levels as well as your potassium levels in the upcoming days. Please take additional dose of Lokelma once tomorrow. Clinical Impressions Clinical Impression: Anemia, Chronic kidney disease, stage IV (severe), Hyperkalemia Instructions Patient Instructions: Anemia, Chronic Kidney Disease, DI for Hyperkalemia Print Language Print Language: Pashto Discharge ED Provider: Jesus Ivory Adult HPI General Chief complaint: GI Bleed Stated complaint: Abnormal Labs Time Seen by Provider: 05/03/25 12:00 Mode of Arrival: EMS Source of Information: Patient Limitations: No Limitations History of Present Illness HPI narrative: 84-year-old female presents to the emergency department via EMS, from halfway facility for low hemoglobin , blood draw this morning showed a low hemoglobin hematocrit, patient does have past medical history consistent with symptomatic anemia thought to be iron deficiency in nature as patient takes iron supplementation, patient is GCS of 15, has no acute complaints at the bedside, denies any fever chills chest pain shortness of breath, no abdominal pain nausea vomiting constipation diarrhea no hematemesis, no hemoptysis, no hematochezia, no hematuria, no melena, although she does endorse dark stools , due to iron supplementation. Initial triage vitals are unremarkable, other past medical history is consistent with HFpEF, anemia, CKD, hypertension, COPD, type 2 diabetes, hypothyroidism, ANGEL, GERD, patient is a former smoker, denies any alcohol or drug use. Please note that above description of symptoms, in this electronic medical record under categorization of recalled from ER triage doctor by RN are reflective of an initial nursing assessment, however, is not reflective of my full history and physical exam that was personally taken and clarified. Consequentially, this preceding description of symptoms, which may include the patient's categorized chief complaint in the EMR, do not reflect my personal clinical impression, and the ultimate description of history of present illness and patient stated complaints should be deferred to this section of the note. Unless stated otherwise or congruent with this section of the note, additional signs, symptoms, or incongruence should be interpreted as inaccurate with my clinical impression. Onset (ago): unknown Related Data Home Medications ?Medication ?Instructions ?Recorded ?Confirmed duloxetine 30 mg capsule,delayed 30 mg PO DAILY 03/21/25 release levothyroxine 75 mcg tablet 75 mcg PO DAILY 07/28/22 0 03/21/25 pantoprazole 40 mg tablet,delayed 40 mg PO DAILY 07/2803/21/25 release atorvastatin 80 mg tablet 80 mg PO HS 05/28/242 5 budesonide-formoterol HFA 160 2 puff inhalation BID 03/21/25 mcg-4.5 mcg/actuation aerosol inhaler ferrous sulfate 325 mg (65 mg 325 mg PO DAILY 05/28/24 03/21/25 iron) tablet,delayed release fluticasone propionate 50 1 spray intranasal DAILY 01/1403/21/25 mcg/actuation nasal spray,suspension insulin glargine U-300 conc 300 5 unit SQ HS 05/28/24 03/21/25 unit/mL (1.5 mL) subcutaneous pen (Toujeo SoloStar U-300 Insulin) insulin lispro 100 unit/mL See Protocol SQ ACHS 03/21/25 subcutaneous pen (Humalog KwikPen (U-100) Insulin) ipratropium 0.5 mg-albuterol 3 mg 3 ml inhalation Q4HP PRN Shortness 05/28/24 03/21/25 (2.5 mg base)/3 mL nebulization Of Breath soln sennosides 8.6 mg-docusate sodium 2 tab PO BIDP PRN Co nstipation 05/28/24 03/21/25 50 mg capsule loratadine 10 mg tablet 10 mg PO DAILY 08/19/2402/22 melatonin 5 mg tablet 5 mg PO HS 08/19/24 03/21/25 aspirin 81 mg tablet,delayed 81 mg PO DAILY 11/30/24 0 03/21/25 release Held on 03/24/25. Instructions: Follow-up with GI/cardiology carvedilol 12.5 mg tablet 12.5 mg PO BID 11/30/2402/22 hydralazine 50 mg tablet 50 mg PO TID 11/30/24 insulin lispro 100 unit/mL 3 unit SQ TID 11/30/2402/22 subcutaneous solution ondansetron 4 mg disintegrating 4 mg PO Q6HP PRN Nause a And 11/30/24 03/21/25 tablet Vomiting trazodone 50 mg tablet 25 mg PO HS 11/30/24 5 acetaminophen 325 mg tablet 650 mg PO DAILY 03/21/25 0 03/21/25 albuterol sulfate 90 mcg/actuation 2 puff inhalation Q 4HP PRN 03/21/25 03/21/25 aerosol inhaler Shortness Of Breath bumetanide 2 mg tablet 2 mg PO DAILY 03/21/2503/21 doxazosin 2 mg tablet 2 mg PO HS 03/21/25 03/21/25 empagliflozin 10 mg tablet 10 mg PO DAILY 03/21/25 (Jardiance) isosorbide mononitrate 60 mg 60 mg PO DAILY 03/21/25 0 03/21/25 tablet,extended release 24 hr oxycodone 5 mg tablet 5 mg PO Q8HP PRN Moderate Pa in 03/21/25 03/21/25 (Scale Score 5-6) polyethylene glycol 3350 17 17 g PO SUTUTHSA 03/21/25 03/21/25 gram/dose oral powder (Miralax) propylene glycol 0.6 % eye drops 1 drp Eye-Both QID 03/21/25 (Systane Balance) sodium zirconium cyclosilicate 5 5 g PO DAILY 03/21/25 03/21/25 gram oral powder packet (Lokelma) Previous Rx's ?Medication ?Instructions ?Recorded sodium zirconium cyclosilicate 10 10 g PO ONCE #11 ea 05/03/25 gram oral powder packet (Lokelma) Allergies Allergy/AdvReac Type Severity Reaction Status Date / Time adhesive tape Allergy Unknown Verified 06/20/24 11:26 allergy reaction ciprofloxacin Allergy Unknown Verified 06/20/24 11:26 allergy reaction codeine Allergy Unknown Verified 06/20/24 11:26 allergy reaction doxycycline Allergy Unknown Verified 06/20/24 11:26 allergy reaction erythromycin base Allergy Unknown Verified 06/20/24 11:26 allergy reaction latex Allergy Unknown Verified 06/20/24 11:26 allergy reaction Penicillins Allergy Unknown Verified 06/20/24 11:26 allergy reaction Sulfa (Sulfonamide Allergy Unknown Verified 06/20/24 11:26 Antibiotics) allergy reaction PFSH PFSH Disclaimer: The information contained in this section may have been updated after the patient was seen, as this information can be updated by other users. Medical History Hypothyroid Diabetes mellitus Anemia COPD (chronic obstructive pulmonary disease) Anxiety HLD (hyperlipidemia) CKD (chronic kidney disease) Heart failure Surgical History H/O tubal ligation H/O cataract removal with insertion of prosthetic lens H/O hand surgery History of appendectomy Family History (Updated 05/03/25 @ 12:06 by Kenzie Lindo RN) Other No significant family history Social History Smoking Status: Former smoker alcohol intake: never current occupational status: retired Travel in the last 8 weeks?: None Have you lived/traveled outside [place] in past 30 days?: No Contact w/someone who lives/traveled outside US past 30 days?: No Exposure to someone with infectious disease in past 14 days?: No Do you have a fever (greater than 100.4 F or 38 C)?: No Have you tested positive for COVID-19?: No Exposed to someone with COVID-19 in past 14 days?: No Do you have a sore throat?: No Do you have a cough?: No Do you have any weakness?: No Do you have any diarrhea?: No Are you experiencing any unusual bleeding?: No Do you have any muscle aches/pain?: No Do you have any abdominal pain?: No Are you experiencing loss of taste or smell?: No Other Medical History Have you received the Flu Vaccine for this season: No Have you received the Pneumonia Vaccine: No ROS Obtained: Yes All systems reviewed & no additional complaints except as documented Physical Exam General General appearance: alert and in no apparent distress Comment: Somewhat pale appearing female Head Head exam: atraumatic and normocephalic Eye Eye exam: Present PERRL and EOMI ENT ENT exam: Present mucous membranes moist Neck Neck exam: Present normal inspection Chest Chest inspection: Present normal inspection and symmetric chest wall rise Respiratory Respiratory exam: Present normal lung sounds bilaterally; Absent respiratory distress Cardiovascular Cardiovascular exam: Present regular rate and normal rhythm Abdominal Exam Abdominal exam: Present soft; Absent tenderness Extremities Exam Extremities exam: Present normal inspection Neurological Exam Neurological exam: Present alert and oriented X3 Psychiatric Psychiatric exam: Present normal affect Skin Skin exam: Present warm and dry Medical Decision Making Medical Records Medical records reviewed: Yes I reviewed the patient's medical records. Screening: Per USPSTF and CDC recommendations, given the prevalence of disease in our region, it is our hospital?s policy to screen for HIV and viral Hepatitis for all patients aged 18 and over and those with ongoing risk factors. John Inquiry Pt receiving controlled substance: No John was queried for this patient: No Vital Signs: 05/03/25 12:05 05/03/25 12:05 05/03/25 12:13 Temperature 98.4 F 98.4 F Temperature Source Oral Pulse Rate 68 Pulse Rate [Right] 68 Respiratory Rate 16 16 Blood Pressure 122/49 L Blood Pressure [Right Arm] 122/49 L Blood Pressure Mean [Right Arm] 73 02 Sat by Pulse Oximetry 95 95 95 Oxygen Delivery Method Room Air 05/03/25 12:13 05/03/25 12:21 05/03/25 12:40 Temperature Temperature Source Pulse Rate 64 62 62 Pulse Rate [Right] Respiratory Rate Blood Pressure 122/49 L 170/54 H 142/46 H Blood Pressure [Right Arm] Blood Pressure Mean [Right Arm] 02 Sat by Pulse Oximetry 98 96 99 Oxygen Delivery Method Room Air Room Air Room Air Lab Data Lab results reviewed: Yes I reviewed the patient's lab results. Lab Results 05/03/25 11:55: WBC 6.3, RBC 2.46 L, Hgb 7.6 L, Hct 24.5 L, MCV 99.6 H, MCH 30.9, MCHC 31.0 L, RDW 19.3 H, Plt Count 253, MPV 10.5 H, Neut % (Auto) 72.9, Lymph % (Auto) 14.2, [place] % (Auto) 11.4 H, Eos % (Auto) 1.1, Baso % (Auto) 0.2, Neut # (Auto) 4.6, Lymph # (Auto) 0.9, [place] # (Auto) 0.7, Eos # (Auto) 0.1, Baso # (Auto) 0.0, Sodium 138, Potassium 5.8 H, Chloride 108 H, Carbon Dioxide 23, Anion Gap 12.8, BUN 60 H, Creatinine 3.60 H, Estimated Creat Clear 12, Estimated GFR 12 L*, Est GFR ( Amer) 15 L*, Glucose 148 H, Calcium 9.7, Total Bilirubin 0.3, AST 42 H, ALT 40, Alkaline Phosphatase 77, Total Protein 6.6, Albumin 3.6, Globulin 3.0, Albumin/Globulin Ratio 1.2, Lipase 132 05/03/25 12:15: Blood Type O Positive, Antibody Screen Negative 05/03/25 13:22: Urine Color Yellow, Urine Appearance Clear, Urine pH 5.5, Ur Specific [place] 1.020, Urine Protein 2+ A, Urine Glucose (UA) 2+, Urine Ketones Negative, Urine Blood Negative, Urine Nitrate Negative, Urine Bilirubin Negative, Urine Urobilinogen 0.2, Ur Leukocyte Esterase Negative, Urine RBC None, Urine WBC 3-5, Ur Squamous Epith Cells 3-5, Urine Bacteria Trace 05/03/25 11:55 05/03/25 11:55 Orders (Tests/Meds): ED MEDICATIONS Discontinued Medications Generic Name Dose Route Start Last Admin Trade Name Lyn PRN Reason Stop Dose Admin Sodium Chloride 1,000 mls @ 999 mls/hr 05/03/25 12:47 05/03/25 13:00 Sod Chlor 0.9% 1000ml Bag IV 05/03/25 13:47 999 mls/hr .Q1H1M ONE Administration Sodium Zirconium Cyclosilicate 10 gm 05/03/25 12:49 05/03/25 13:00 Lokelma 5gm Packet PO 05/03/25 12:50 10 gm ONCE ONE Administration ORDERS Category Date Time Status Type and Screen Stat BBK 05/03/25 12:15 Completed Complete Blood Count Auto Diff Stat Lab 05/03/25 11:55 Completed Comprehensive Metabolic Panel Stat Lab 05/03/25 11:55 Completed Lactic Acid Stat Lab 05/03/25 12:20 Ordered Lipase Stat Lab 05/03/25 11:55 Completed Urinalysis and Microscopic Stat Lab 05/03/25 13:22 Completed Medical Decision Narrative: 84-year-old female presents the emergency department with concerns of low hemoglobin hematocrit via EMS from halfway facility, differential diagnose clued but not limited to, electrolyte disturbance, hypovolemia, acute kidney injury, anemia of chronic disease. I discussed this patient's case with the attending physician Dr. Rocha Will obtain basic laboratory studies , lactic acid, lipase level, UA, fecal occult, type and screen. Of note patient was recently seen by GI, slated to have outpatient scope, for positive Hemoccult inpatient in February of this year. CBC is notable for there is cytopenia 2.46, hemoglobin 7.6, hematocrit 24.5, MCV is elevated 99.6, this appears to be the patient's baseline anemia. CMP is notable for BUN at 60, creatinine is 3.6, appears to be the patient's baseline renal function, hyperkalemia 5.8, AST is minimally elevated at 42, lipase is normal limits. Because of stable H&H, with the patient's history of anemia, will cancel fecal occult stool test at this time. Will give 1 L IV NS Will also obtain EKG Will give 10 g p.o. Lokelma for hyperkalemia. Blood type is O+, antibody screen negative. EKG reviewed by myself and attending physician, at 1319, negative for any acute ischemic changes, negative for any T wave changes that be consistent with electrolyte abnormality, NSR at 65 bpm, AV block of the first-degree with IL interval at 228, QT interval within normal limits there is no STEMI. UA notable for 2+ proteinuria, negative leukocyte esterase, negative nitrites, 3-5 WBCs, trace bacteria 35 squamous cells. Hemoglobin hematocrit are stable not requiring transfusion at this time. I discussed the results with the patient the bedside, patient is in agreement with the current treatment plan/discharge plan, will send patient home with additional dose of 10 g p.o. Lokelma, for hyperkalemia, patient will need follow-up on his hemoglobin, creatinine, as well as her potassium levels. Patient has follow-up at the facility with primary care doctor there. Patient voiced understanding and agreement with the current treatment plan/discharge plan. Patient appears to be at her neurological/behavioral baseline, has remained hemodynamically stable throughout her time in the emergency department. Strict return precautions given. Critical Care Critical Care Time Critical Care Time: No
[2025-05-03 12:13] VITALS: BP 122/49; PULSE 64; O2SAT 95; O2SAT 98
[2025-05-03 12:21] VITALS: BP 170/54; PULSE 62; O2SAT 96
[2025-05-03 12:30] LABS: Hematocrit 24.5 % (37.0-47.0); Hemoglobin 7.6 g/dL (12.2-16.2); Immature Granulocytes % 0.2 %; Mean Corpuscular HGB Conc 31.0 g/dL (31.8-35.4); Mean Corpuscular Hemoglobin 30.9 pg (27.0-31.2); Mean Corpuscular Volume 99.6 fl (81-99); Nucleated Red Blood Cells % 0 %; Platelet Count 253 K/mm3 (142-424); Red Blood Count 2.46 M/mm3 (4.20-5.40); Red Cell Distribution Width-SD 71.3 fL; White Blood Count 6.3 K/mm3 (4.8-10.8)
[2025-05-03 12:35] LABS: Alanine Aminotransferase 40 U/L (12-78); Albumin Level 3.6 g/dl (3.5-5.0); Albumin/Globulin Ratio 1.2 (1.1-1.8); Alkaline Phosphatase 77 U/L (38-126); Anion Gap 12.8 mEq/L (5-15); Aspartate Amino Transferase 42 U/L (14-36); Bilirubin,Total 0.3 mg/dl (0.2-1.3); Blood Urea Nitrogen 60 mg/dl (7-17); Calcium 9.7 mg/dl (8.4-10.2); Carbon Dioxide 23 mmol/L (22.0-30.0); Chloride 108 mmol/L (98-107); Creatinine Clearance Estimated 12 mL/min (50-200); Creatinine,Serum 3.60 mg/dl (0.52-1.04); Estimated Glomerular Filt Rate 12 ml/min (>60); GFR (African American) 15 ML/MIN (>60); Globulin 3.0 g/dL (1.3-3.2); Glucose 148 mg/dl (74-100); Lipase 132 U/L (23-300); Potassium 5.8 mmoL/L (3.5-5.1); Sodium 138 mmol/L (136-145); Total Protein,Serum 6.6 g/dl (6.3-8.2)
--- NOTE | 2025-05-03 12:39 | PC.NURSE ---
pt given warm blankets; no other needs at this time
[2025-05-03 12:40] VITALS: BP 142/46; PULSE 62; O2SAT 99
[2025-05-03] MEDS: 0.9 % SODIUM CHLORIDE 1000ML 1,000 ML 999 ML IV (13:00)
[2025-05-03] MEDS: LOKELMA 5GM PACKET 10 GM PO (13:00)
[2025-05-03 13:01] VITALS: BP 156/45; PULSE 57; O2SAT 96
[2025-05-03 13:26] LABS: Microscopic, Urine URINE MICROSCOPIC (MICROSCOPIC)
[2025-05-03 13:28] LABS: Bilirubin,Urine Negative (Negative); Color,Urine YELLOW (Yellow); Glucose,Urine (UA) 2+ (Negative); Ketones,Urine Negative (Negative); Leukocyte Esterase,Urine Negative (Negative); PH,Urine 5.5 (5.0-8.5); Protein,Urine 2+ (Negative); Specific Gravity, Urine 1.020 (1.005-1.030); Urobilinogen,Urine 0.2 EU/dl (0.2)
[2025-05-03 13:33] LABS: Bacteria,Urine Trace /lpf
[2025-05-03 14:07] VITALS: BP 156/45; PULSE 56; RESP 16; TEMP 36.9; O2SAT 95
== END 2025-05-03 14:30 | disposition home or self-care (01) ==
PROVIDERS: Physician Assistant; Emergency Provider Student in an Organized Health Care Education/Training Program
DX: I12.0 Hypertensive chronic kidney disease with stage 5 chronic kidney disease or end stage renal disease (principal); E87.5 Hyperkalemia; N18.5 Chronic kidney disease, stage 5; D63.1 Anemia in chronic kidney disease; Z87.891 Personal history of nicotine dependence
CPT/HCPCS: 80053; 81001; 83690; 85025; 86850; 93005; 96360; 99284; 99285; J7030

== ENCOUNTER 2025-05-27 10:33 | Emergency (ER) | payer MEDICARE, SELFPAY ==
--- OUTSIDE RECORDS SUMMARY | 2025-03-25 05:00 | XMS_ITS ---
Author Organization [facility] Address [address] [place] [address] Phone [phone] Care Team Providers Care Side Stapler Name Role Phone Lyssa Trejo Unavailable [phone] Migration, Provider Unavailable Unavailable REASON FOR VISIT EMR-Steven Encounters Encounter Location Date Provider Diagnosis [facility] [address] [place] [address] 03/25/2025 Provider Migration Plan Of Treatment No Information Progress Notes * LYSSA SAABDOB:[birth year] (84 yo F)Acc No.[id number]:03/25/2025 Patient: Lisa GREENELYSSA JACOBS :1940 A ge:84 Y S ex:Female [facility] [address] Subjective: * Chief Complaints: * E MR-Steven * * Date:
--- OUTSIDE RECORDS SUMMARY | 2025-03-26 05:00 | XMS_ITS ---
Author Organization [employer] [facility] bertha [facility] Address [address] [place] [address] Phone [phone] Care Team Providers Care Practice Specialist Name Role Phone Lyssa Trejo Unavailable [phone] Migration, Provider Unavailable Unavailable REASON FOR VISIT EMR-Steven Medications Medication SIG (Take, Route, Frequency, Duration) Notes Start Date End Date Status Ferrous Sulfate 325 (65 Fe) MG Tablet Oral Active Ventolin HFA 108 (90 Base) MCG/ACT Aerosol Solution Inhalation Active FLUZONE HIGH-DOSE 2019-20 (PF) 180 MCG/0.5 ML INTRAMUSCULAR SYRINGE *Reorder from [employer] for eRx and Interaction Alerts* Active Nystatin 774511 UNIT/GM Powder External Active Nitroglycerin 0.4 MG Tablet Sublingual Sublingual Active ULTRA-FINE SHORT PEN NEEDLE 31 gauge x 5/16 NEEDLE, DISPOSABLE MISCELLANEOUS *Reorder from [employer] for eRx and Interaction Alerts* Active Cephalexin 500 MG Capsule Oral Active Atorvastatin Calcium 80 MG Tablet Oral Active Levothyroxine Sodium 75 MCG Tablet Oral Active NOVOLOG FLEXPEN U-100 INSULIN ASPART 100 UNIT/ML (3 ML) SUBCUTANEOUS *Reorder from [employer] for eRx and Interaction Alerts* Active Sodium Bicarbonate 650 MG Tablet Oral Active Lantus 100 UNIT/ML Solution Subcutaneous Active VITAMIN D2 1,250 MCG (50,000 UNIT) CAPSULE *Reorder from [employer] for eRx and Interaction Alerts* Active GaviLyte-G 236-22.74-6.74 -5.86 gram Solution Reconstituted Oral *Pick strength-form from [employer] for eRX* Active traZODone HCl 50 MG Tablet Oral Active DULoxetine HCl 30 MG Capsule Delayed Release Particles Oral Active Furosemide 80 MG Tablet Oral Active Fluconazole 100 MG Tablet Oral Active FLUTICASONE PROPIONATE 50 MCG/ACTUATION NASAL SPRAY,SUSPENSION *Reorder from [employer] for eRx and Interaction Alerts* Active Pantoprazole Sodium 40 MG Tablet Delayed Release Oral Active Amoxicillin-Pot Clavulanate 500-125 MG Tablet Oral Active Toujeo SoloStar 300 UNIT/ML Solution Pen-injector Subcutaneous Active Clopidogrel Bisulfate 75 MG Tablet Oral Active Anoro Ellipta 62.5-25 MCG/INH Aerosol Powder Breath Activated Inhalation *Pick strength-form from [employer] for eRX* Active Bystolic 5 MG Tablet Oral Active Social History Social History Additional Details Category Social Info Options Details Migrated Social History Migrated Social History Tobacco Years: Never smoker 06/26/2020 Encounters Encounter Location Date Provider Diagnosis [facility], [facility] [address] [place] [address] 03/26/2025 Provider Migration Plan Of Treatment No Information Progress Notes * KAISER JUDYMARIANELADOB:[birth year] (84 yo F)Acc No.[id number]:03/26/2025 Patient: LYSSA POLANCO :1940 A ge:84 Y S ex:Female Address:[address] [place] [address] Subjective: * Chief Complaints: * E MR-Steven * Social History: M igrated Social History: M igrated Social History: Tobacco Years: Never smoker 06/26/2020. * Medications: T akingBystolic 5 MG Tablet Oral Clopidogrel Bisulfate 75 MG Tablet Oral Pantoprazole Sodium 40 MG Tablet Delayed Release Oral FLUTICASONE PROPIONATE 50 MCG/ACTUATION NASAL SPRAY,SUSPENSION , Notes to Pharmacist: *Reorder from [employer] for eRx and Interaction Alerts*Cephalexin 500 MG Capsule Oral Levothyroxine Sodium 75 MCG Tablet Oral ULTRA-FINE SHORT PEN NEEDLE 31 gauge x 5/16 NEEDLE, DISPOSABLE MISCELLANEOUS , Notes to Pharmacist: *Reorder from [employer] for eRx and Interaction Alerts*Ferrous Sulfate 325 (65 Fe) MG Tablet Oral Atorvastatin Calcium 80 MG Tablet Oral Nitroglycerin 0.4 MG Tablet Sublingual Sublingual Nystatin 719908 UNIT/GM Powder External Ventolin HFA 108 (90 Base) MCG/ACT Aerosol Solution Inhalation Anoro Ellipta 62.5-25 MCG/INH Aerosol Powder Breath Activated Inhalation , Notes to Pharmacist: *Pick strength-form from [employer] for eRX*Lantus 100 UNIT/ML Solution Subcutaneous Sodium Bicarbonate 650 MG Tablet Oral traZODone HCl 50 MG Tablet Oral GaviLyte-G 236-22.74-6.74 -5.86 gram Solution Reconstituted Oral , Notes to Pharmacist: *Pick strength-form from [facility] for eRX*NOVOLOG FLEXPEN U-100 INSULIN ASPART 100 UNIT/ML (3 ML) SUBCUTANEOUS , Notes to Pharmacist: *Reorder from [facility] for eRx and Interaction Alerts*DULoxetine HCl 30 MG Capsule Delayed Release Particles Oral Fluconazole 100 MG Tablet Oral Furosemide 80 MG Tablet Oral VITAMIN D2 1,250 MCG (50,000 UNIT) CAPSULE , Notes to Pharmacist: *Reorder from [facility] for eRx and Interaction Alerts*Amoxicillin-Pot Clavulanate 500-125 MG Tablet Oral Toujeo SoloStar 300 UNIT/ML Solution Pen-injector Subcutaneous FLUZONE HIGH-DOSE 2019-20 (PF) 180 MCG/0.5 ML INTRAMUSCULAR SYRINGE , Notes to Pharmacist: *Reorder from [facility] for eRx and Interaction Alerts*Taking Bystolic 5 MG Tablet Oral Taking Clopidogrel Bisulfate 75 MG Tablet Oral Taking Pantoprazole Sodium 40 MG Tablet Delayed Release Oral Taking FLUTICASONE PROPIONATE 50 MCG/ACTUATION NASAL SPRAY,SUSPENSION , Notes to Pharmacist: *Reorder from [facility] for eRx and Interaction Alerts*Taking Cephalexin 500 MG Capsule Oral Taking Levothyroxine Sodium 75 MCG Tablet Oral Taking ULTRA- FINE SHORT PEN NEEDLE 31 gauge x 5/16 NEEDLE, DISPOSABLE MISCELLANEOUS , Notes to Pharmacist: *Reorder from [facility] for eRx and Interaction Alerts*Taking Ferrous Sulfate 325 (65 Fe) MG Tablet Oral Taking Atorvastatin Calcium 80 MG Tablet Oral Taking Nitroglycerin 0.4 MG Tablet Sublingual Sublingual Taking Nystatin 251423 UNIT/GM Powder External Taking Ventolin HFA 108 (90 Base) MCG/ACT Aerosol Solution Inhalation Taking Anoro Ellipta 62.5-25 MCG/INH Aerosol Powder Breath Activated Inhalation , Notes to Pharmacist: *Pick strength-form from [facility] for eRX*Taking Lantus 100 UNIT/ML Solution Subcutaneous Taking Sodium Bicarbonate 650 MG Tablet Oral Taking traZODone HCl 50 MG Tablet Oral Taking G[employer]Lyte-G 236-22.74-6.74 -5.86 gram Solution Reconstituted Oral , Notes to Pharmacist: *Pick strength-form from [facility] for eRX*Taking NOVOLOG FLEXPEN U-100 INSULIN ASPART 100 UNIT/ML (3 ML) SUBCUTANEOUS , Notes to Pharmacist: *Reorder from [facility] for eRx and Interaction Alerts*Taking DULoxetine HCl 30 MG Capsule Delayed Release Particles Oral Taking Fluconazole 100 MG Tablet Oral Taking Furosemide 80 MG Tablet Oral Taking VITAMIN D2 1,250 MCG (50,000 UNIT) CAPSULE , Notes to Pharmacist: *Reorder from [facility] for eRx and Interaction Alerts*Taking Amoxicillin-Pot Clavulanate 500-125 MG Tablet Oral Taking Toujeo SoloStar 300 UNIT/ML Solution Pen-injector Subcutaneous Taking FLUZONE HIGH-DOSE 2018- (PF) 180 MCG/0.5 ML INTRAMUSCULAR SYRINGE , Notes to Pharmacist: *Reorder from [facility] for eRx and Interaction Alerts* * * Date:
[2025-05-27] VITALS (9 sets, daily range): BP systolic 123–152; BP diastolic 31–50; PULSE 67–85; RESP 11–20; TEMP 36.8; O2SAT 93–100; BMI 29.2
--- OUTSIDE RECORDS SUMMARY | 2025-05-27 10:38 | XMS_ITS | Patient Health Record ---
Author Organization [facility] [address] [address] Address [address] [place] [address] Phone [phone] Care Team Providers Care Collateral Analyst Name Role Phone Josue Trejo Unavailable [phone] Migration, Provider Unavailable Unavailable Reason For Referral No Information Medications Medication SIG (Take, Route, Frequency, Duration) Notes Start Date End Date Status DULoxetine HCl 30 MG Capsule Delayed Release Particles Oral Active Amoxicillin-Pot Clavulanate 500-125 MG Tablet Oral Active Toujeo SoloStar 300 UNIT/ML Solution Pen-injector Subcutaneous Active FLUZONE HIGH-DOSE 2019-20 (PF) 180 MCG/0.5 ML INTRAMUSCULAR SYRINGE *Reorder from [employer] for eRx and Interaction Alerts* Active Anoro Ellipta 62.5-25 MCG/INH Aerosol Powder Breath Activated Inhalation *Pick strength-form from [employer] for eRX* Active Ventolin HFA 108 (90 Base) MCG/ACT Aerosol Solution Inhalation Active ULTRA-FINE SHORT PEN NEEDLE 31 gauge x 5/16 NEEDLE, DISPOSABLE MISCELLANEOUS *Reorder from [employer] for eRx and Interaction Alerts* Active Nystatin 984927 UNIT/GM Powder External Active Nitroglycerin 0.4 MG Tablet Sublingual Sublingual Active Cephalexin 500 MG Capsule Oral Active Atorvastatin Calcium 80 MG Tablet Oral Active Levothyroxine Sodium 75 MCG Tablet Oral Active NOVOLOG FLEXPEN U-100 INSULIN ASPART 100 UNIT/ML (3 ML) SUBCUTANEOUS *Reorder from [employer] for eRx and Interaction Alerts* Active GaviLyte-G 236-22.74-6.74 -5.86 gram Solution Reconstituted Oral *Pick strength-form from [employer] for eRX* Active traZODone HCl 50 MG [...] PROPIONATE 50 MCG/ACTUATION NASAL SPRAY,SUSPENSION *Reorder from [employer] for eRx and Interaction Alerts* Active Pantoprazole Sodium 40 MG Tablet Delayed Release Oral Active VITAMIN D2 1,250 MCG (50,000 UNIT) CAPSULE *Reorder from [employer] for eRx and Interaction Alerts* Active Social History Social History Additional Details Category Social Info Options Details Migrated Social History Migrated Social History Tobacco Years: Never smoker 06/26/2020 Problems Problem Type SNOMED Code ICD Code Onset Dates Problem Status W/U Status Risk Notes Problem History of suspected exposure to biological agent (30821728732900 ) Encounter for observation for suspected exposure to other biological agents ruled out (Z03.818) 0 Active confirmed Encounters Encounter Location Date Provider Diagnosis [facility] [address] [place] [address] 03/25/2025 Provider Migration [facility] [address] [place] [address] 03/26/2025 Provider Migration Plan Of Treatment No Information
--- OUTSIDE RECORDS SUMMARY | 2025-05-27 10:38 | XMS_ITS | Patient Health Record ---
Author Organization [id number] [facility] Address [address] [facility] [address] [place], [place] [phone] Support Name Relationship Address Phone Lyssa Higgins Guarantor Unknown [phone] Reason For Referral No Information Plan Of Treatment No Information Insurance Providers Payer Name Payer Address Payer Phone Subscriber Number Group Number Insured Name Patient Relationship to Insured Coverage Start Date Coverage End Date [employer] PPO MEDICARE [address] [address] [place], [place] [id number] Lyssa Higgins Self - patient is the insured 3
--- OUTSIDE RECORDS SUMMARY | 2025-05-27 10:39 | XMS_ITS | Data Portability ---
Author Organization [place] - [facility], [facility], [facility], [facility] Address [address] [place] [address] Assessment No assessment recorded. Plan of Treatment Reminders Order Date Submit Date Provider Last Modified By Organization Details Last Modified Time Details Appointments None recorded. 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 Procedures None recorded. Surgeries None recorded. Imaging None recorded. Medication Orders None recorded. Patient TargetsNo targets recorded. Patient InstructionsNo instructions recorded. Reason for Referral None Reported. Medical Equipment None Reported. Medications Name Sig Start Date Stop Date Status Note LastModified by Organization Details LastModified Time fluconazole 100 mg tablet active Not Available Not Available No t Available atorvastatin 80 mg tablet active Not Available Not Available No t Available trazodone 50 mg tablet active Not Available Not Available Not Available Lantus U-100 Insulin 100 unit/mL subcutaneous solution active Not Available Not Available Not Available clopidogrel 75 mg tablet active Not Available Not Available No t Available levothyroxine 75 mcg tablet active Not Available Not Available N ot Available furosemide 80 mg tablet active Not Available Not Available Not Available sodium bicarbonate 650 mg tablet active Not Available Not Available No t Available cephalexin 500 mg capsule active Not Available Not Available N ot Available pantoprazole 40 mg tablet,delayed release active Not Available Not Available Not Available ferrous sulfate 325 mg (65 mg iron) tablet active Not Available Not Available Not Available nitroglycerin 0.4 mg sublingual tablet active Not Available Not Available Not Available ergocalciferol (vitamin D2) 1,250 mcg (50,000 unit) capsule active Not Available Not Available Not Available nystatin 100,000 unit/gram topical powder active Not Available Not Availab le Not Available fluticasone propionate 50 mcg/actuation nasal spray,suspension active Not Available Not Avail able Not Available amoxicillin 500 mg-potassium clavulanate 125 mg tablet active Not Available Not Available No t Available Ventolin HFA 90 mcg/actuation aerosol inhaler active Not Available Not Availa ble Not Available Novolog FlexPen U-100 Insulin aspart 100 unit/mL (3 mL) subcutaneous active Not Available Not Available Not Available duloxetine 30 mg capsule,delayed release active Not Available Not Available Not Available BD Ultra-Fine Short Pen Needle 31 gauge x 5/16 active Not Available Not Avail able Not Available Bystolic 5 mg tablet active Not Available Not Available Not Available GaviLyte-G 236 gram-22.74 gram-6.74 gram-5.86 gram oral solution active Not Available Not Availabl e Not Available Anoro Ellipta 62.5 mcg-25 mcg/actuation powder for inhalation active Not Available Not Available N ot Available Toujeo SoloStar U-300 Insulin 300 unit/mL (1.5 mL) subcutaneous pen active Not Available Not Available Not Available Fluzone High-Dose 2019-20 (PF) 180 mcg/0.5 mL intramuscular syringe active Not Available Not Available Not Available Vitals None Recorded Social History None recorded. Functional Status None recorded. Mental Status None recorded. Family History Nothing Reported. Medical History Condition Response Diabetes Y Heart Problems Y Arthritis Y Lung Disease Y Kidney Disease Y Gynecological HistoryNo gynecological history recorded. Obstetrics History GPAL:G 0 P 0 0 0 0 Past Encounters Encounter ID Performer Location Encounter Start Date Encounter Closed Date Diagnosis/Indication Diagnosis SNOMED-CT Code Diagnosis ICD10 Code Diagnosis IMO Codes Diagnosis Note [id number] Lyssa Trejo NP, A [facility], [facility] [address] [place] [address] 03/07/2020 12:30:29 04/25/2020 22:56:46 Suspected COVID-19 [id number] Z03.818 Health Concerns Section Related Observation LastModified by Organization Detai ls LastModified Time None Recorded Concern Status LastModified by Organization Details LastModified Time None Recorded Advance Directives Directive None Recorded Payers Insurance Date Sequence Insurance Name Policy Number Policy Garcia Covered Member ID Garcia Member ID Guarantor Name 03/07/2020 1 *SELF PAY* Ayush Higgins Notes Date Note Type Note Provider Name and Address Organization Details Recorded Time 03/07/2020 text/html 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 Client has the potential of being exposed to coronavirus (COVID-19) due to her work environment. Client complained of cough which is consistent with her respiratory illness, rhinitis which she attributes to being in air conditioning. Client denies fever, chills, rigors, muscle aches, sore throat, new olfactory and taste disorders, headache, fatigue, new onset or worsening of chronic cough, wheezing, dyspnea, difficulty breathing, chest pain, nausea or vomiting, abdominal pain, or diarrhea. Lyssa Trejo, ANGELA, A [address] [place] [address], [id number], [facility] - [facility], [facility] 03/10/2020 16:30:59 OBGyn Episode No OBEpisode recorded.
[2025-05-27] MEDS: ONDANSETRON 4MG/2ML VIAL 4 MG IV (10:45)
[2025-05-27 10:56] LABS: Immature Granulocytes % 0.3 %; Mean Corpuscular HGB Conc 31.5 g/dL (31.8-35.4); Mean Corpuscular Hemoglobin 32.1 pg (27.0-31.2); Mean Corpuscular Volume 101.9 fl (81-99); Nucleated Red Blood Cells % 0.2 %; Platelet Count 228 K/mm3 (142-424); Red Blood Count 1.59 M/mm3 (4.20-5.40); Red Cell Distribution Width-SD 64.6 fL; White Blood Count 9.0 K/mm3 (4.8-10.8)
[2025-05-27 11:02] LABS: INR 1.08 (0.9-1.1); Prothrombin Time 11.9 seconds (10.1-12.5)
[2025-05-27 11:04] LABS: Alanine Aminotransferase 26 U/L (12-78); Albumin Level 2.9 g/dl (3.5-5.0); Albumin/Globulin Ratio 1.2 (1.1-1.8); Alkaline Phosphatase 85 U/L (38-126); Anion Gap 15.5 mEq/L (5-15); Aspartate Amino Transferase 20 U/L (14-36); Bilirubin,Total 0.6 mg/dl (0.2-1.3); Calcium 8.9 mg/dl (8.4-10.2); Carbon Dioxide 20 mmol/L (22.0-30.0); Chloride 108 mmol/L (98-107); Creatinine Clearance Estimated 13 mL/min (50-200); Creatinine,Serum 3.50 mg/dl (0.52-1.04); Estimated Glomerular Filt Rate 13 ml/min (>60); GFR (African American) 15 ML/MIN (>60); Globulin 2.5 g/dL (1.3-3.2); Glucose 122 mg/dl (74-100); Hematocrit 16.2 % (37.0-47.0); Sodium 137 mmol/L (136-145); Total Protein,Serum 5.4 g/dl (6.3-8.2)
[2025-05-27 11:08] LABS: Blood Urea Nitrogen 105 mg/dl (7-17); Potassium 6.5 mmoL/L (3.5-5.1)
[2025-05-27 11:13] LABS: Hemoglobin 5.1 g/dL (12.2-16.2); NT Pro Brain Natriuretic Pep. 4810 pg/mL (0-450)
--- NOTE | 2025-05-27 11:15 | ECG_ITS ---
APPROVED REPORT Exam: Resting ECG HR:69 bpm ECG Measurements Heart Rate 69 AXES TN 215 P 78 QRSd 145 QRS 95 QT 421 T -34 QTc 440 Conclusion Sinus rhythm Right axis Downsloping ST segments in leads II, 3, aVF Left bundle branch block No STEMI Electronically signed by : Avelino Jordan, 05/28/2025 07:33:59
[2025-05-27 11:24] LABS: Activated Partial Thrombo Time 24.7 seconds (22.8-30.6)
--- NOTE | 2025-05-27 11:29 | PC.NURSE ---
called [facility] per Dr Jordan for transfer for upper GI bleed. [facility] advised they do not have IR coverage this weekend
[2025-05-27 11:37] LABS: Troponin I < 0.01 ng/ml (0.00-0.034)
[2025-05-27 11:40] LABS: Alanine Aminotransferase 25 U/L (12-78); Albumin Level 2.9 g/dl (3.5-5.0); Albumin/Globulin Ratio 1.2 (1.1-1.8); Alkaline Phosphatase 81 U/L (38-126); Anion Gap 16.3 mEq/L (5-15); Aspartate Amino Transferase 22 U/L (14-36); Bilirubin,Total 0.6 mg/dl (0.2-1.3); Calcium 8.9 mg/dl (8.4-10.2); Carbon Dioxide 19 mmol/L (22.0-30.0); Chloride 108 mmol/L (98-107); Creatinine Clearance Estimated 13 mL/min (50-200); Creatinine,Serum 3.50 mg/dl (0.52-1.04); Estimated Glomerular Filt Rate 13 ml/min (>60); GFR (African American) 15 ML/MIN (>60); Globulin 2.5 g/dL (1.3-3.2); Glucose 118 mg/dl (74-100); Sodium 137 mmol/L (136-145); Total Protein,Serum 5.4 g/dl (6.3-8.2)
[2025-05-27 11:40] LABS: Lipase 94 U/L (23-300)
[2025-05-27 11:42] LABS: Blood Urea Nitrogen 104 mg/dl (7-17); Potassium 6.3 mmoL/L (3.5-5.1)
[2025-05-27] MEDS: DEXTROSE 50% 50ML SYRINGE (CRASH CART) 50 ML IVP (11:51)
[2025-05-27] MEDS: CALCIUM GLUC IN NACL, ISO-OSM 2 GM/100 ML BAG IV (11:51)
[2025-05-27] MEDS: IPRATROPIUM/ALBUTEROL 3 ML NEB IH (11:51)
[2025-05-27] MEDS: INSULIN HUMAN REGULAR 100 UNITS/ML 10ML VIAL 5 UNIT IV (11:51)
--- NOTE | 2025-05-27 12:09 | PC.NURSE ---
currently on phone with [facility] for a transfer for upper GI bleed.
--- NOTE | 2025-05-27 12:11 | PC.NURSE ---
[facility] advised they will contact hospitalist and call back
--- NOTE | 2025-05-27 12:13 | PC.NURSE ---
facesheet has been faxed to [phone]
--- NOTE | 2025-05-27 12:13 | HMH.EDGENADL ---
Discharge Plan Disposition Patient Disposition: Xfer Other Condition: Fair Prescriptions Prescriptions: No Action levothyroxine 75 mcg tablet 75 mcg PO DAILY pantoprazole 40 mg tablet,delayed release (DR/EC) 40 mg PO DAILY Patient Comments: TAKE 1 TABLET BY MOUTH EVERY DAY duloxetine 30 mg capsule,delayed release(DR/EC) 30 mg PO DAILY atorvastatin 80 mg Tablet 80 mg PO HS ipratropium-albuterol 0.5 mg-3 mg(2.5 mg base)/3 mL Solution For Nebulization 3 ml INHALATION Q4HP PRN (Reason: Shortness Of Breath) ferrous sulfate 325 mg (65 mg iron) Tablet,Delayed Release (Dr/Ec) 325 mg PO DAILY fluticasone propionate 50 mcg/actuation [place],Suspension 1 spray INTRANASAL DAILY Rx Instructions: administer into each nostril insulin lispro [Humalog KwikPen Insulin] 100 unit/mL Insulin Pen See Protocol SQ ACHS Protocol: Insulin Corrective Low-Dose Regimen Condition: Fingerstick Blood Glucose Dose/Route: Insulin Units Condition: 151-200 mg/dl Dose/Route: 2 unit/SQ Condition: 201-250 mg/dl Dose/Route: 4 units/SQ Condition: 251-300 mg/dl Dose/Route: 6 units/SQ Condition: 301-350 mg/dl Dose/Route: 8 units/SQ Condition: 351-400 mg/dl Dose/Route: 10 units/SQ Condition: 401-450 mg/dl Dose/Route: 12 units/SQ Condition: > 450 mg/dl Dose/Route: CALL MD Protocol Text: Low Intensity Sliding Scale Insulin budesonide-formoterol 160-4.5 mcg/actuation Hfa Aerosol Inhaler 2 puff INHALATION BID insulin glargine U-300 conc [Toujeo SoloStar U-300 Insulin] 300 unit/mL (1.5 mL) Insulin Pen 5 unit SQ HS sennosides-docusate sodium 8.6-50 mg Capsule 2 tab PO BIDP PRN (Reason: Constipation) loratadine 10 mg Tablet 10 mg PO DAILY melatonin 5 mg Tablet 5 mg PO HS carvedilol 12.5 mg tablet 12.5 mg PO BID aspirin 81 mg tablet,delayed release (DR/EC) 81 mg PO DAILY trazodone 50 mg tablet 25 mg PO HS hydralazine 50 mg tablet 50 mg PO TID insulin lispro 100 unit/mL solution 3 unit SQ TID ondansetron 4 mg tablet,disintegrating 4 mg PO Q6HP PRN (Reason: Nausea And Vomiting) Systane Balance 0.6 % Drops 1 drp Eye-Both QID Jardiance 10 mg tablet 10 mg PO DAILY Lokelma 5 gram powder in packet 5 g PO DAILY acetaminophen 325 mg tablet 650 mg PO DAILY bumetanide 2 mg tablet 2 mg PO DAILY albuterol sulfate 90 mcg/actuation HFA aerosol inhaler 2 puff INHALATION Q4HP PRN (Reason: Shortness Of Breath) doxazosin 2 mg tablet 2 mg PO HS oxycodone 5 mg Tablet 5 mg PO Q8HP PRN (Reason: Moderate Pain (Scale Score 5-6)) isosorbide mononitrate 60 mg tablet extended release 24 hr 60 mg PO DAILY polyethylene glycol 3350 [Miralax] 17 gram/dose powder 17 g PO SUTUTHSA Lokelma 10 gram powder in packet 10 g PO ONCE Qty: 11 0RF Referrals Follow up/Referrals: Provider,Referral, MD [Primary Care Provider, Medical] - See instructions Clinical Impressions Clinical Impression: Acute upper gastrointestinal bleeding, Elevated BUN, CKD (chronic kidney disease) stage 5, GFR less than 15 ml/min, Acute hyperkalemia Stand Alone Forms Stand Alone Forms: Transfer Record - ED Print Language Print Language: Greek Discharge ED Provider: Avelino Jordan Adult HPI General Chief complaint: Nausea/Vomiting/Diarrhea Stated complaint: GI Bleed Time Seen by Provider: 05/27/25 11:00 Mode of Arrival: EMS Source of Information: Patient Description of Symptoms (Recalled from ER Triage Doc. by RN): pt came here today from [facility] with cc of nausea and vomiting per longterm staff it appeared to be coffee ground emesis, per triage pt is alox4 and appropriate only complains of nausea and no active vomting. vitals and fbs wnl History of Present Illness HPI narrative: This is an 84-year-old female patient who currently resides [place] [facility] [place] and has a past medical history of CKD stage V, acute on chronic HFpEF, chronic anemia, COPD, hypertension, diabetes, hyperlipidemia, and chronic melena, who is presenting to the emergency department today for evaluation of weakness and pallor. The patient was asked admitted to our facility back in February of this year for upper GI bleeding. She did not undergo any intervention for GI bleeding at that time but was transfused with 2 units of packed red blood cells and given IV iron. She was discharged home with proton pump inhibitors as well as continued iron therapy. She tells me today she has had worsening melena as well as worsening weakness, fatigue, and pallor. She specifically states that she feels as if her blood counts have dropped. She is not having any abdominal pain, hematemesis, chest pain, or shortness of breath Related Data Home Medications ?Medication ?Instructions ?Recorded ?Confirmed duloxetine 30 mg capsule,delayed 30 mg PO DAILY 07/28/22 05/27/25 release levothyroxine 75 mcg tablet 75 mcg PO DAILY 07/28/22 05/27/25 pantoprazole 40 mg tablet,delayed 40 mg PO DAILY 07/28/22 05/27/25 release atorvastatin 80 mg tablet 80 mg PO HS 05/28/24 05/27/25 budesonide-formoterol HFA 160 2 puff inhalation BID 05/28/24 05/27/25 mcg-4.5 mcg/actuation aerosol inhaler ferrous sulfate 325 mg (65 mg 325 mg PO DAILY 05/28/24 05/27/25 iron) tablet,delayed release fluticasone propionate 50 1 spray intranasal DAILY 05/28/24 05/27/25 mcg/actuation nasal spray,suspension insulin glargine U-300 conc 300 5 unit SQ HS 05/28/24 05/27/25 unit/mL (1.5 mL) subcutaneous pen (Toujeo SoloStar U-300 Insulin) insulin lispro 100 unit/mL See Protocol SQ ACHS 05/28/24 05/27/25 subcutaneous pen (Humalog KwikPen (U-100) Insulin) ipratropium 0.5 mg-albuterol 3 mg 3 ml inhalation Q4HP PRN Shortness 05/28/24 05/27/25 (2.5 mg base)/3 mL nebulization Of Breath soln sennosides 8.6 mg-docusate sodium 2 tab PO BIDP PRN Constipation 05/28/24 05/27/25 50 mg capsule loratadine 10 mg tablet 10 mg PO DAILY 08/19/24 05/27/25 melatonin 5 mg tablet 5 mg PO HS 08/19/24 05/27/25 aspirin 81 mg tablet,delayed 81 mg PO DAILY 11/30/24 05/27/25 release Held on 03/24/25. Instructions: Follow-up with GI/cardiology carvedilol 12.5 mg tablet 12.5 mg PO BID 11/30/24 05/27/25 hydralazine 50 mg tablet 50 mg PO TID 11/30/24 05/27/25 insulin lispro 100 unit/mL 3 unit SQ TID 11/30/24 05/27/25 subcutaneous solution ondansetron 4 mg disintegrating 4 mg PO Q6HP PRN Nausea And 11/30/24 05/27/25 tablet Vomiting trazodone 50 mg tablet 25 mg PO HS 11/30/24 05/27/25 acetaminophen 325 mg tablet 650 mg PO DAILY 03/21/25 05/27/25 albuterol sulfate 90 mcg/actuation 2 puff inhalation Q4HP PRN 03/21/25 05/27/25 aerosol inhaler Shortness Of Breath bumetanide 2 mg tablet 2 mg PO DAILY 03/21/25 05/27/25 doxazosin 2 mg tablet 2 mg PO HS 03/21/25 05/27/25 empagliflozin 10 mg tablet 10 mg PO DAILY 03/21/25 05/27/25 (Jardiance) isosorbide mononitrate 60 mg 60 mg PO DAILY 03/21/25 05/27/25 tablet,extended release 24 hr oxycodone 5 mg tablet 5 mg PO Q8HP PRN Moderate Pain 03/21/25 05/27/25 (Scale Score 5-6) polyethylene glycol 3350 17 17 g PO SUTUTHSA 03/21/25 05/27/25 gram/dose oral powder (Miralax) propylene glycol 0.6 % eye drops 1 drp Eye-Both QID 03/21/25 05/27/25 (Systane Balance) sodium zirconium cyclosilicate 5 5 g PO DAILY 03/21/25 05/27/25 gram oral powder packet (Lokelma) Previous Rx's ?Medication ?Instructions ?Recorded sodium zirconium cyclosilicate 10 10 g PO ONCE #11 ea 05/03/25 gram oral powder packet (Lokelma) Allergies Allergy/AdvReac Type Severity Reaction Status Date / Time adhesive tape Allergy Unknown Verified 06/20/24 11:26 allergy reaction ciprofloxacin Allergy Unknown Verified 06/20/24 11:26 allergy reaction codeine Allergy Unknown Verified 06/20/24 11:26 allergy reaction doxycycline Allergy Unknown Verified 06/20/24 11:26 allergy reaction erythromycin base Allergy Unknown Verified 06/20/24 11:26 allergy reaction latex Allergy Unknown Verified 06/20/24 11:26 allergy reaction Penicillins Allergy Unknown Verified 06/20/24 11:26 allergy reaction Sulfa (Sulfonamide Allergy Unknown Verified 06/20/24 11:26 Antibiotics) allergy reaction PFSH PFSH Disclaimer: The information contained in this section may have been updated after the patient was seen, as this information can be updated by other users. Medical History Hypothyroid Diabetes mellitus Anemia COPD (chronic obstructive pulmonary disease) Anxiety HLD (hyperlipidemia) CKD (chronic kidney disease) Heart failure Surgical History H/O tubal ligation H/O cataract removal with insertion of prosthetic lens H/O hand surgery History of appendectomy Family History Other No significant family history Social History Smoking Status: Former smoker alcohol intake: never current occupational status: retired Travel in the last 8 weeks?: None Have you lived/traveled outside [place] in past 30 days?: No Contact w/someone who lives/traveled outside US past 30 days?: No Exposure to someone with infectious disease in past 14 days?: No Do you have a fever (greater than 100.4 F or 38 C)?: No Have you tested positive for COVID-19?: No Exposed to someone with COVID-19 in past 14 days?: No Do you have a sore throat?: No Do you have a cough?: No Do you have any weakness?: No Do you have any diarrhea?: No Are you experiencing any unusual bleeding?: No Do you have any muscle aches/pain?: No Do you have any abdominal pain?: No Are you experiencing loss of taste or smell?: No Other Medical History Have you received the Flu Vaccine for this season: No Have you received the Pneumonia Vaccine: No ROS Obtained: Yes Systems reviewed as appropriate & no additional complaints except as documented Physical Exam General General appearance: other (See MDM) Respiratory Respiratory exam: Present other (See MDM) Cardiovascular Cardiovascular exam: Present other (See MDM) Neurological Exam Neurological exam: Present other (See MDM) Medical Decision Making Medical Records Medical records reviewed: Yes I reviewed the patient's medical records. Screening: Per USPSTF and CDC recommendations, given the prevalence of disease in our region, it is our hospital?s policy to screen for HIV and viral Hepatitis for all patients aged 18 and over and those with ongoing risk factors. John Inquiry Pt receiving controlled substance: No John was queried for this patient: No Vital Signs: 05/27/25 10:37 05/27/25 10:48 05/27/25 11:00 Temperature 98.2 F Temperature Source Oral Pulse Rate 67 70 Pulse Rate [Left Radial] 67 Respiratory Rate 11 L 20 12 Blood Pressure 123/39 L 125/47 L Blood Pressure [Right Arm] 123/39 L Blood Pressure Mean Blood Pressure Mean [Right Arm] 67 02 Sat by Pulse Oximetry 98 98 93 L Oxygen Delivery Method Room Air Room Air 05/27/25 11:30 05/27/25 12:00 05/27/25 12:30 Temperature Temperature Source Pulse Rate 72 78 78 Pulse Rate [Left Radial] Respiratory Rate 16 16 13 Blood Pressure 132/43 L 138/46 L 126/31 L Blood Pressure [Right Arm] Blood Pressure Mean 87 79 Blood Pressure Mean [Right Arm] 02 Sat by Pulse Oximetry 100 100 97 Oxygen Delivery Method Room Air 05/27/25 13:00 Temperature Temperature Source Pulse Rate 79 Pulse Rate [Left Radial] Respiratory Rate 13 Blood Pressure 149/50 H Blood Pressure [Right Arm] Blood Pressure Mean Blood Pressure Mean [Right Arm] 02 Sat by Pulse Oximetry 97 Oxygen Delivery Method Room Air Lab Data Lab Results 05/27/25 10:30: WBC 9.0, RBC 1.59 L*, Hgb 5.1 L*, Hct 16.2 L*, MCV 101.9 H, MCH 32.1 H, MCHC 31.5 L, RDW 17.4, Plt Count 228, MPV 11.2 H, Neut % (Auto) 75.4, Lymph % (Auto) 13.9, Woodson % (Auto) 9.7 H, Eos % (Auto) 0.6, Baso % (Auto) 0.1, Neut # (Auto) 6.8, Lymph # (Auto) 1.3, Woodson # (Auto) 0.9, Eos # (Auto) 0.1, Baso # (Auto) 0.0, PT 11.9, INR 1.08, APTT 24.7, Sodium 137, Potassium 6.5 H*, Chloride 108 H, Carbon Dioxide 20 L, Anion Gap 15.5 H, BUN 105 H*, Creatinine 3.50 H, Estimated Creat Clear 13, Estimated GFR 13 L*, Est GFR ( Amer) 15 L*, Glucose 122 H, Calcium 8.9, Total Bilirubin 0.6, AST 20, ALT 26, Alkaline Phosphatase 85, Troponin I < 0.01, NT-Pro-B Natriuret Pep 4810 H, Total Protein 5.4 L, Albumin 2.9 L, Globulin 2.5, Albumin/Globulin Ratio 1.2, Lipase 94 05/27/25 11:19: Sodium 137, Potassium 6.3 H*, Chloride 108 H, Carbon Dioxide 19 L, Anion Gap 16.3 H, BUN 104 H*, Creatinine 3.50 H, Estimated Creat Clear 13, Estimated GFR 13 L*, Est GFR ( Amer) 15 L*, Glucose 118 H, Calcium 8.9, Total Bilirubin 0.6, AST 22, ALT 25, Alkaline Phosphatase 81, Total Protein 5.4 L, Albumin 2.9 L, Globulin 2.5, Albumin/Globulin Ratio 1.2, Blood Type O Positive, Antibody Screen Negative, Crossmatch (AHG) See Detail 05/27/25 10:30 05/27/25 11:19 Orders (Tests/Meds): ED MEDICATIONS Generic Name Dose Route Start Last Admin Trade Name Freq PRN Reason Stop Dose Admin Sodium Chloride 250 mls @ 25 mls/hr 05/27/25 11:15 Sod Chlor 0.9% 250ml Bag IV 05/28/25 11:14 .Q10H MODESTO Discontinued Medications Generic Name Dose Route Start Last Admin Trade Name Freq PRN Reason Stop Dose Admin Albuterol/Ipratropium 3 ml 05/27/25 11:38 05/27/25 11:51 Ipratropium/Albuterol 3 Ml Neb IH 05/27/25 11:39 3 ml ONCE ONE Administration Dextrose 50 ml 05/27/25 11:36 05/27/25 11:51 Dextrose 50% 50ml Syringe (Crash Cart) IVP 05/27/25 11:37 50 ml ONCE ONE Administration Calcium Gluconate/Sodium Chloride 2 gm in 100 mls @ 50 mls/hr 05/27/25 11:15 05/27/25 11:51 Calcium Gluconate 2,000mg/100ml Nacl Premix IV 05/27/25 13:14 50 mls/hr ONCE ONE Administration Pantoprazole Sodium 80 mg/ 100 mls @ 100 mls/hr 05/27/25 11:41 Sodium Chloride IV 05/27/25 12:40 ONCE ONE Insulin Human Regular 5 unit 05/27/25 11:36 05/27/25 11:51 Insulin Human Regular 100 Units/Ml 10ml Vial IV 05/27/25 11:37 5 unit ONCE ONE Administration Ondansetron HCl 4 mg 05/27/25 10:42 05/27/25 10:45 Ondansetron 4mg/2ml Vial IV 05/27/25 10:43 4 mg ONCE ONE Administration Sodium Zirconium Cyclosilicate 10 gm 05/27/25 13:21 Lokelma 5gm Packet PO 05/27/25 13:22 ONCE ONE ORDERS Category Date Time Status Transfuse RBC's [Red Blood Cells] Stat BBK 05/27/25 11:19 Results Type and Screen Stat K 05/27/25 11:19 Results BNP [NT Pro Brain Natriuretic Pep.] Stat Lab 05/27/25 10:30 Completed CMP [Comprehensive Metabolic Panel] Stat Lab 05/27/25 11:19 Completed Complete Blood Count Auto Diff Stat Lab 05/27/25 10:30 Completed Comprehensive Metabolic Panel Stat Lab 05/27/25 10:30 Completed Lipase Stat Lab 05/27/25 10:30 Completed PT INR [Prothrombin Time INR] Stat Lab 05/27/25 10:30 Completed PTT [Activated Partial Thrombo Time] Stat Lab 05/27/25 10:30 Completed Troponin I Stat Lab 05/27/25 10:30 Completed ECG Data Tracing #1: I reviewed this ECG and interpreted as documented below: EKG personally interpreted by me demonstrates normal sinus rhythm with a rate of 69 bpm, right axis, LA prolongation consistent with first-degree AV block, wide QRS with left bundle branch block morphology, no QTc prolongation. There is ST downsloping in the inferior leads as well as the lateral leads. Medical Decision Narrative: In summary, this is a 84-year-old female patient who is presented to the emergency department today for evaluation of weakness and pallor as well as fatigue in the setting of worsening melena. The patient's comorbidities include a history of hypertension, hyperlipidemia, diabetes, chronic HFpEF with moderate aortic stenosis, CKD, and COPD. She is not currently on any anticoagulant therapy. She is on a daily aspirin. I would also like to note that the patient does have chronic melena and has been taking iron supplementation as well as proton pump inhibitors in the outpatient setting for treatment of this. Her hemoglobin chronically runs between 7 and 8. On initial evaluation of the patient she appeared very pale but was overall nontoxic in appearance. She is hemodynamically stable and neurologically intact. She is saturating well on room air. Her lungs are clear to auscultation bilaterally. Her abdomen is soft and nontender to palpation. She does have pitting edema in her bilateral lower extremities which she states is chronic and not new. Differential diagnosis includes peptic ulcer disease, Deuilafoy lesion, among other sources of upper GI bleeding. This is less likely to be a lower GI bleeding given that she is having melena. Workup was initiated with hematologic labs as well as an EKG. Labs were personally interpreted by me demonstrate marked anemia with a hemoglobin of 5.1. Renal function appears relatively stable with a creatinine of 3.6 and a GFR of 13. She is hyperkalemic with a potassium of 6.5. I have obtained an EKG which shows no evidence of hyperacute T waves. EKG looks largely unchanged from prior with deviation of the ST segment in leads II, 3, aVF, as well as V3 through V6. There is no STEMI on this EKG. I do not feel that this patient would benefit from any formal imaging as she is hemodynamically stable. I did have an interactive discussion with our global program manager and the general surgeons who are on-call and they have agreed that this patient needs a scope and are willing to perform that this weekend. Anesthesia is also on board to provide anesthesia with her comorbidities. I did have an interactive discussion with the on-call internal medicine physician who did not feel comfortable admitting her to our hospital with hyperkalemia as we do not have dialysis capabilities here. He has recommended transfer to another hospital for higher level of care. While in the emergency department we have treated the patient for hyperkalemia with 2 g of calcium gluconate, 50 g of dextrose, 5 units of insulin, and DuoNebs containing albuterol. We have also treated her hyperkalemia with 10 g of Lokelma and treated her for upper GI bleeding with 80 mg of Protonix. Patient does not have a history of variceal bleeding so we have not treated with octreotide or ceftriaxone. Patient was monitored closely on telemetry for evidence of arrhythmia associated with hyperkalemia. I have had an interactive discussion with the transfer center at [facility] in [place]. I have discussed this case directly with Dr. Campbell on the phone who has agreed to accept the patient for transfer to [facility]. Patient was transferred in stable condition. I would like to note that at the time of the patient's arrival we ordered a type and screen and immediately sent this to the lab. The patient remained in our emergency department for a total of 3-1/2 hours. By the time the type and screen returned and the patient's blood was sent to the ER EMS was already in the emergency department and ready to take the patient to [facility]. EMS is not allowed to administer blood while in route on the ambulance. Given that she has remained hemodynamically stable, transfusion was deferred in order to obtain earlier transport for definitive care. Critical Care Critical Care Time Critical Care Time: Yes Attestation: On 05/27/25, the high probability of a clinically significant, sudden or life threatening deterioration of the following system(s) required my full and direct attention, intervention and personal management. The time I documented below is in addition to time spent performing reported procedures but includes the following listed in this critical care notation. Total Time Total Critical Care Time: 78
--- NOTE | 2025-05-27 13:41 | PC.NURSE ---
lab called and said blood is ready, ems states that starting blood administration will delay transport and require a nurse to ride for transport, PER ER MD is ok to send patient before starting blood as she is hemodynamic stable for now. Spoke with ER charge nurse and ems medic geller as all are on the same page
== END 2025-05-27 14:01 | disposition other institution (70) ==
PROVIDERS: Emergency Provider Student in an Organized Health Care Education/Training Program
DX: K92.2 Gastrointestinal hemorrhage, unspecified (principal); E87.5 Hyperkalemia; N18.5 Chronic kidney disease, stage 5; I44.0 Atrioventricular block, first degree; I44.7 Left bundle-branch block, unspecified; I12.0 Hypertensive chronic kidney disease with stage 5 chronic kidney disease or end stage renal disease; E11.22 Type 2 diabetes mellitus with diabetic chronic kidney disease; Z87.891 Personal history of nicotine dependence; Z79.4 Long term (current) use of insulin
CPT/HCPCS: 80053; 83690; 83880; 84484; 85025; 85610; 85730; 86850; 93005; 96365; 96366; 96375; 99285; 99291; J0612; J2405

== ENCOUNTER 2025-05-30 12:50 | Outpatient (CLI) | payer MEDICARE, SELFPAY ==
--- OUTSIDE RECORDS SUMMARY | 2025-03-25 05:00 | XMS_ITS ---
Author Organization [facility] Address [address] [place] [address] Phone [phone] Care Team Providers Care Stunt Performer Name Role Phone Lyssa Trejo Unavailable [phone] Migration, Provider Unavailable Unavailable REASON FOR VISIT EMR-Steven Encounters Encounter Location Date Provider Diagnosis [facility] [address] [place] [address] 03/25/2025 Provider Migration Plan Of Treatment No Information Progress Notes * LYSSA SAABDOB:[birth year] (84 yo F)Acc No.[id number]:03/25/2025 Patient: Lisa GREENELYSSA JACOBS :1940 A ge:84 Y S ex:Female [facility] [address] Subjective: * Chief Complaints: * E MR-Steven * * Date:
--- OUTSIDE RECORDS SUMMARY | 2025-03-26 05:00 | XMS_ITS ---
Author Organization [facility] bertha [facility] Address [address] [place] [address] Phone [phone] Care Team Providers Care Software Support Specialist Name Role Phone Lyssa Trejo Unavailable [phone] Migration, Provider Unavailable Unavailable REASON FOR VISIT EMR-Steven Medications Medication SIG (Take, Route, Frequency, Duration) Notes Start Date End Date Status Ferrous Sulfate 325 (65 Fe) MG Tablet Oral Active Ventolin HFA 108 (90 Base) MCG/ACT Aerosol Solution Inhalation Active FLUZONE HIGH-DOSE 2019-20 (PF) 180 MCG/0.5 ML INTRAMUSCULAR SYRINGE *Reorder from [employer] for eRx and Interaction Alerts* Active Nystatin 476965 UNIT/GM Powder External Active Nitroglycerin 0.4 MG Tablet Sublingual Sublingual Active ULTRA-FINE SHORT PEN NEEDLE 31 gauge x 5/16 NEEDLE, DISPOSABLE MISCELLANEOUS *Reorder from [employer] for eRx and Interaction Alerts* Active Cephalexin 500 MG Capsule Oral Active Atorvastatin Calcium 80 MG Tablet Oral Active Levothyroxine Sodium 75 MCG Tablet Oral Active NOVOLOG FLEXPEN U-100 INSULIN ASPART 100 UNIT/ML (3 ML) SUBCUTANEOUS *Reorder from [employer] for eRx and Interaction Alerts* Active Sodium Bicarbonate 650 MG Tablet Oral Active Lantus 100 UNIT/ML Solution Subcutaneous Active VITAMIN D2 1,250 MCG (50,000 UNIT) CAPSULE *Reorder from [employer] for eRx and Interaction Alerts* Active GaviLyte-G 236-22.74-6.74 -5.86 gram Solution Reconstituted Oral *Pick strength-form from [employer] for eRX* Active traZODone HCl 50 MG Tablet Oral Active DULoxetine HCl 30 MG Capsule Delayed Release Particles Oral Active Furosemide 80 MG Tablet Oral Active Fluconazole 100 MG Tablet Oral Active FLUTICASONE PROPIONATE 50 MCG/ACTUATION NASAL SPRAY,SUSPENSION *Reorder from [employer] for eRx and Interaction Alerts* Active Pantoprazole Sodium 40 MG Tablet Delayed Release Oral Active Amoxicillin-Pot Clavulanate 500-125 MG Tablet Oral Active Toujeo SoloStar 300 UNIT/ML Solution Pen-injector Subcutaneous Active Clopidogrel Bisulfate 75 MG Tablet Oral Active Anoro Ellipta 62.5-25 MCG/INH Aerosol Powder Breath Activated Inhalation *Pick strength-form from [employer] for eRX* Active Bystolic 5 MG Tablet Oral Active Social History Social History Additional Details Category Social Info Options Details Migrated Social History Migrated Social History Tobacco Years: Never smoker 06/26/2020 Encounters Encounter Location Date Provider Diagnosis [facility], [facility] [address] [place] [address] 03/26/2025 Provider Migration Plan Of Treatment No Information Progress Notes * KAISER JUDYMARIANELADOB:[birth year] (84 yo F)Acc No.[id number]:03/26/2025 Patient: LYSSA POLANCO :1940 A ge:84 Y S ex:Female Address:[address] [place] [address] Subjective: * Chief Complaints: * E MR-Steven * Social History: M igrated Social History: M igrated Social History: Tobacco Years: Never smoker 06/26/2020. * Medications: T akingBystolic 5 MG Tablet Oral Clopidogrel Bisulfate 75 MG Tablet Oral Pantoprazole Sodium 40 MG Tablet Delayed Release Oral FLUTICASONE PROPIONATE 50 MCG/ACTUATION NASAL SPRAY,SUSPENSION , Notes to Pharmacist: *Reorder from [employer] for eRx and Interaction Alerts*Cephalexin 500 MG Capsule Oral Levothyroxine Sodium 75 MCG Tablet Oral ULTRA-FINE SHORT PEN NEEDLE 31 gauge x 5/16 NEEDLE, DISPOSABLE MISCELLANEOUS , Notes to Pharmacist: *Reorder from [employer] for eRx and Interaction Alerts*Ferrous Sulfate 325 (65 Fe) MG Tablet Oral Atorvastatin Calcium 80 MG Tablet Oral Nitroglycerin 0.4 MG Tablet Sublingual Sublingual Nystatin 551399 UNIT/GM Powder External Ventolin HFA 108 (90 Base) MCG/ACT Aerosol Solution Inhalation Anoro Ellipta 62.5-25 MCG/INH Aerosol Powder Breath Activated Inhalation , Notes to Pharmacist: *Pick strength-form from [employer] for eRX*Lantus 100 UNIT/ML Solution Subcutaneous Sodium Bicarbonate 650 MG Tablet Oral traZODone HCl 50 MG Tablet Oral [employer]Lyte-G 236-22.74-6.74 -5.86 gram Solution Reconstituted Oral , Notes to Pharmacist: *Pick strength-form from [facility] for eRX*NOVOLOG FLEXPEN U-100 INSULIN ASPART 100 UNIT/ML (3 ML) SUBCUTANEOUS , Notes to Pharmacist: *Reorder from [facility] for eRx and Interaction Alerts*DULoxetine HCl 30 MG Capsule Delayed Release Particles Oral Fluconazole 100 MG Tablet Oral Furosemide 80 MG Tablet Oral VITAMIN D2 1,250 MCG (50,000 UNIT) CAPSULE , Notes to Pharmacist: *Reorder from [facility] for eRx and Interaction Alerts*Amoxicillin-Pot Clavulanate 500-125 MG Tablet Oral Toujeo SoloStar 300 UNIT/ML Solution Pen-injector Subcutaneous FLUZONE HIGH-DOSE 2019-20 (PF) 180 MCG/0.5 ML INTRAMUSCULAR SYRINGE , Notes to Pharmacist: *Reorder from [facility] for eRx and Interaction Alerts*Taking Bystolic 5 MG Tablet Oral Taking Clopidogrel Bisulfate 75 MG Tablet Oral Taking Pantoprazole Sodium 40 MG Tablet Delayed Release Oral Taking FLUTICASONE PROPIONATE 50 MCG/ACTUATION NASAL SPRAY,SUSPENSION , Notes to Pharmacist: *Reorder from [facility] for eRx and Interaction Alerts*Taking Cephalexin 500 MG Capsule Oral Taking Levothyroxine Sodium 75 MCG Tablet Oral Taking ULTRA- FINE SHORT PEN NEEDLE 31 gauge x 5/16 NEEDLE, DISPOSABLE MISCELLANEOUS , Notes to Pharmacist: *Reorder from [facility] for eRx and Interaction Alerts*Taking Ferrous Sulfate 325 (65 Fe) MG Tablet Oral Taking Atorvastatin Calcium 80 MG Tablet Oral Taking Nitroglycerin 0.4 MG Tablet Sublingual Sublingual Taking Nystatin 567381 UNIT/GM Powder External Taking Ventolin HFA 108 (90 Base) MCG/ACT Aerosol Solution Inhalation Taking Anoro Ellipta 62.5-25 MCG/INH Aerosol Powder Breath Activated Inhalation , Notes to Pharmacist: *Pick strength-form from [facility] for eRX*Taking Lantus 100 UNIT/ML Solution Subcutaneous Taking Sodium Bicarbonate 650 MG Tablet Oral Taking traZODone HCl 50 MG Tablet Oral Taking [employer]te-G 236-22.74-6.74 -5.86 gram Solution Reconstituted Oral , Notes to Pharmacist: *Pick strength-form from [facility] for eRX*Taking [employer] FLEXPEN U-100 INSULIN ASPART 100 UNIT/ML (3 ML) SUBCUTANEOUS , Notes to Pharmacist: *Reorder from [facility] for eRx and Interaction Alerts*Taking DULoxetine HCl 30 MG Capsule Delayed Release Particles Oral Taking Fluconazole 100 MG Tablet Oral Taking Furosemide 80 MG Tablet Oral Taking VITAMIN D2 1,250 MCG (50,000 UNIT) CAPSULE , Notes to Pharmacist: *Reorder from [facility] for eRx and Interaction Alerts*Taking Amoxicillin-Pot Clavulanate 500-125 MG Tablet Oral Taking Toujeo SoloStar 300 UNIT/ML Solution Pen-injector Subcutaneous Taking FLUZONE HIGH-DOSE 2018- (PF) 180 MCG/0.5 ML INTRAMUSCULAR SYRINGE , Notes to Pharmacist: *Reorder from [facility] for eRx and Interaction Alerts* * * Date:
--- OUTSIDE RECORDS SUMMARY | 2025-05-27 15:02 | XMS_ITS | Encounter Summary ---
Author Organization [facility] ([place], [place], [place], [place]) Address [address] [place] [address] Care Team Providers Care Associate Professor Plant Pathology Name Role Phone Anand Noble MD Primary Care Provider Reason for Visit * Auth/Cert (Routine) Specialty Diagnoses / Procedures Referred By Cooper nelson Referred To Contact Diagnoses GI bleeding GIB (GastroIntestinal Bleed) [address] Medical Telemetry [address] [place] [address] Phone: tel: fax: [address] Medical Telemetry [address] [place] [address] Phone: tel: fax: Referral ID Status Reason Start Date Expiration Date Visits Re quested Visits Authorized [id number] 1 1 Encounter Details Date Type Department Care Team (Late st Contact Info) Description 05/27/2025 3:02 PM EDT - 05/29/2025 4:43 PM EDT Hospital Encounter [address] Medical Telemetry [address] [place] [address] Alan Vargas DO [address] [place] [address] Vane Corley MD [address] [place] [address] Discharge Disposition: Alf Facility Social History Tobacco Use Types Packs/Day [...] Date Juan rded Speak language other than Maltese at home Not on file 09/01/2023 Want [...] 05/29/2025 10:40 AM EDT Patient Name: Lyssa Higgnis : 1940 Date of Admission: 05/27/2025 Date of Discharge: 05/29/2025 Primary Care Physician: Anand Noble MD, MD Consultations: Treatment Team: Consulting Physician: Ebony Gipson MD Consulting Physician: Pa Santos MD Discharge Diagnoses: Anemia Reason for Admission: Lyssa Higgnis is a 84 y.o. female with PMH [...] Your Medications These medications were sent to [facility] at [address] [facility] [address] [address] oxyCODONE 5 MG immediate release tablet pantoprazole [...] Medicine, Sports Medicine Relationship: PCP - [place] [address] [address] K[address] [facility] [address] Next Steps: Follow up in 1 week(s) Ebony Gipson MD Specialty: Gastroenterology [address] [facility] [address] [facility] [address] Next Steps: Follow up in 1 month(s) [facility] Specialty: Alf Facility [address] [facility] [address] [place] [id number] Next Steps: Follow up Time Spent: 33 min Electronically signed by Vane Corley MD, 05/29/25, 3:35 PM EDT documented in this encounter Discharge Instructions * Attachments The following attachments cannot be sent through Care Everywhere. * Blood Transfusion Adult (Maltese) documented in this encounter Medications at Time [...] hours as needed for nausea or vomiting. oxyCODONE (ROXICODONE) 5 MG immediate release tablet Take 1 tablet (5 mg total) by mouth every 8 (eight) hours as needed for pain for up to 3 days. Max Daily Amount: 15 mg 9 tablet 5 06/01/20 25 pantoprazole (PROTONIX) 40 MG tablet Take 1 tablet (40 mg total) by mouth Daily (0600) for 30 days. 30 tablet 5 06/28/20 25 polyethylene glycol (MIRALAX) 17 gram/dose powder Take [...] tablet (50 mg total) by mouth nightly. documented as of this encounter Progress Notes * Reece Thompson RN - 05/29/2025 3:36 PM EDT Report called to Diann at [place]. * Ravi Trent MD - 05/29/2025 1:30 [...] Lab(s) Units 05/29/25 0250 05/28/25 0626 05/27/25 2234 05/27/25 1547 WBC K/??L 8.1 7.8 -- [...] renal function - No emergent need of TAPE DECK INSTALLER - Monitor H/H and transfuse for Hgb less than 7.0 - Low sodium diet and fluid restriction 1.5 lit/day Dispo: Patient to follow-up with [facility] in [facility] outpatient after discharge in 1 month. Ravi [...] PM Result Value Ref Range Issue Date/Time [id number] Product Identification Red Blood Cells Product Code [id number] Status Information TRANSFUSED Unit Number [id number] Blood Type 5100 Cross Match Results Compatible [...] Range POC-GLUCOSE 110 70 - 110 mg/dL Escalator Constructor [id number] Glucose, Nova Meter Status: Abnormal Collection Time: 05/27/25 5:42 PM Result Value Ref Range POC-GLUCOSE 161 (H) 70 - 110 mg/dL Escalator Constructor [id number] Hemoglobin and hematocrit Status: Abnormal Collection Time: 05/27/25 10:34 PM Result Value Ref Range Hemoglobin 6.4 (LL) 11.2 - 15.7 GM/DL Hematocrit 19.7 (L) 34.1 - 44.9 % Prepare RBC: 1 Units Status: None Collection Time: 05/27/25 10:54 PM Result Value Ref Range Issue Date/Time [id number] Product Identification Red Blood Cells Product Code [id number] Status Information TRANSFUSED Unit Number [id number] Blood Type 5100 Cross Match Results Compatible Glucose, Nova Meter Status: None Collection Time: 05/28/25 12:09 AM Result Value Ref Range POC-GLUCOSE 92 70 - 110 mg/dL Escalator Constructor [id number] Glucose, Nova Meter Status: None Collection Time: 05/28/25 6:03 AM Result Value Ref Range POC-GLUCOSE 105 70 - 110 mg/dL Escalator Constructor [id number] CBC - Hemogram (SJ-BKR) Status: Abnormal Collection [...] POC-GLUCOSE 191 (H) 70 - 110 mg/dL Escalator Constructor [id number] IR REQUEST - MISCELLANEOUS Narrative: TUNNELED CATHETER REMOVAL PHYSICIAN TAKE OUT WAITER/WAITRESS: Chris Tipton PA-C. RADIOLOGIST: Hussein Mast M.D. [...] Potassium 5.3 this morning , will order 4C Insights monitor #chronic Kidney disease Gentle IV hydration [...] to feel better and return to her care home. Pain No - Patient not reporting pain at this time Cognition Patient is alert and oriented x 4. Home Living Patient is a resident of the care home, receives assist with her functional activities and [...] patient's discharge summary. Electronically signed by Tab Doyle PT - 05/28/25 - 1:42 PM EDT PT Evaluation Completed * ANZANIN Menezes - 05/28/2025 10:32 AM EDT Images from the original note were not included. [address] MEDICAL TELEMETRY UNIT Inpatient Occupational Therapy Initial Evaluation [...] body dressing:Maximal Assistance Toileting:Minimal Assistance Outcome Measures [facility] Daily Living Functional Assessment How much help [...] (Minimal/Contact guard/Supervision/Setup) 4=None (Modified independent/Independent) The patient's [facility] raw score is 19. The patient currently has 42.80% functional impairment. Clinicians are most likely to recommend inpatient/SNF/correction care for patients with scores between 6-17, [...] will likely be appropriate for inpatient rehab/SNF/ correction care post hospitalization. Plan Recommendations Discharge recommendations: [...] - MISCELLANEOUS Narrative: TUNNELED CATHETER REMOVAL PHYSICIAN TAKE OUT WAITER/WAITRESS: Chris Tipton PA-C. RADIOLOGIST: Hussein Mast M.D. [...] Ext: No Pedal edema , no cyanosis,PPP MARBLE COPER: Alert,Oriented. Cranial nerves intact, No focal deficit noted grossly. Psy: Cooperative,appropriate mood and affect Skin: Warm dry and pink Relevant Results: Results for orders placed or performed during the hospital encounter of 05/27/25 (from the past 24 hours) Prepare RBC: 1 Units Status: None Collection Time: 05/27/25 3:23 PM Result Value Ref Range Issue Date/Time [id number] Product Identification Red Blood Cells Product Code [id number] Status Information TRANSFUSED Unit Number [id number] Blood Type 5100 Cross Match Results Compatible [...] Range POC-GLUCOSE 110 70 - 110 mg/dL Escalator Constructor [id number] Glucose, Nova Meter Status: Abnormal Collection Time: 05/27/25 5:42 PM Result Value Ref Range POC-GLUCOSE 161 (H) 70 - 110 mg/dL Escalator Constructor [id number] Hemoglobin and hematocrit Status: Abnormal Collection Time: 05/27/25 10:34 PM Result Value Ref Range Hemoglobin 6.4 (LL) 11.2 - 15.7 GM/DL Hematocrit 19.7 (L) 34.1 - 44.9 % Prepare RBC: 1 Units Status: None Collection Time: 05/27/25 10:54 PM Result Value Ref Range Issue Date/Time [id number] Product Identification Red Blood Cells Product Code Y6237T45 Status Information TRANSFUSED Unit Number [id number] Blood Type 5100 Cross Match Results Compatible Glucose, Nova Meter Status: None Collection Time: 05/28/25 12:09 AM Result Value Ref Range POC-GLUCOSE 92 70 - 110 mg/dL Escalator Constructor [id number] Glucose, Nova Meter Status: None Collection Time: 05/28/25 6:03 AM Result Value Ref Range POC-GLUCOSE 105 70 - 110 mg/dL Escalator Constructor [id number] CBC - Hemogram (SJ-BKR) Status: Abnormal Collection [...] Units 05/28/25 0626 05/28/25 0603 05/28/25 0009 05/27/25 2234 05/27/25 1742 05/27/25 1701 05/27/25 1547 NA [...] renal function - No emergent need of TAPE DECK INSTALLER - Monitor H/H and transfuse for Hgb [...] or rectal bleeding. She was hospitalized at [facility] 3 months ago with similar issue. Endoscopies [...] nursing note reviewed. Exam conducted with a decorating equipment setter present. Constitutional: General: She is not in [...] PM Result Value Ref Range Issue Date/Time [id number] Product Identification Red Blood Cells Product Code T4212N91 Status Information TRANSFUSED Unit Number [id number] Blood Type 5100 Cross Match Results Compatible [...] Range POC-GLUCOSE 110 70 - 110 mg/dL Escalator Constructor [id number] Glucose, Nova Meter Status: Abnormal Collection Time: 05/27/25 5:42 PM Result Value Ref Range POC-GLUCOSE 161 (H) 70 - 110 mg/dL Escalator Constructor [id number] Assessment & Plan Principal Problem: GI bleeding [...] Patient will maintain good skin integrity 05/28/2025 07 by Viri Shin RN Outcome: [...] Mendez RN Outcome: Progressing 05/27/2025 1539 by yCndi Mendez RN Outcome: Progressing Goal: LTG - [...] signs of wound healing. 05/27/2025 1646 by Cynid Mendez RN Outcome: Progressing 05/27/2025 1539 by [...] PM EDT NOVA GLUCOSE POC Routine 05/28/2025 7:41 PM EDT NOVA GLUCOSE POC Routine 05/28/2025 [...] - 110 mg/dL 05/29/2025 10:47 AM EDT [facility] Comment: In the event of poor peripheral blood flow, venous or arterial blood should be used due to the potential of erroneous results. Notified Nurse RBV Escalator Constructor [id number] 05/29/2025 10:47 AM EDT [facility] Blood WHOLE BLOOD / Unknown 05/29/2025 10:46 AM EDT 05/29/2025 10:47 AM EDT [facility] - 05/29/2025 10:47 AM EDT Escalator Constructor ID is - [id number] Vane Corley MD POINT OF CARE TEST ORDERABLES Final Result [facility] [address] [phone] * (ABNORMAL) Glucose, Nova Meter (05/29/2025 4:53 AM EDT) POC-GLUCOSE 141(H) 70 - 110 mg/dL 05/29/2025 4:54 AM EDT [facility] Comment: In the event of poor peripheral blood flow, venous or arterial blood should be used due to the potential of erroneous results. Protocols Followed Notified Nurse RBV Escalator Constructor [id number] 05/29/2025 4:54 AM EDT [facility] Blood WHOLE BLOOD / Unknown 05/29/2025 4:53 AM EDT 05/29/2025 4:54 AM EDT [facility] - 05/29/2025 4:54 AM EDT Escalator Constructor ID is - [id number] Vane Corley MD POINT OF CARE TEST ORDERABLES Final Result [facility] [address] [place] [id number] [phone] * (ABNORMAL) Basic Metabolic Panel (05/29/2025 2:50 AM EDT) Sodium 143 136 - 145 meq/L 05/29/2025 3:48 AM EDT [facility] Potassium 4.6 3.4 - 5.1 meq/L 05/29/2025 3:48 AM EDT [facility] CO2 20(L) 22 - 29 meq/L 05/29/2025 3:48 AM EDT [facility] Chloride 113(H) 98 - 112 meq/L 05/29/2025 3:48 AM EDT [facility] Glucose 134(H) 82 - 115 mg/dL 05/29/2025 3:48 AM EDT [facility] BUN 83.4(H) 9.8 - 20.1 mg/dL 05/29/2025 3:48 AM EDT [facility] Creatinine 3.13(H) 0.57 - 1.11 mg/dL 05/29/2025 3:48 AM EDT [facility] BUN/Creatinine 27(H) 8 - 20 05/29/2025 3:48 AM EDT [facility] Calcium 8.7 8.4 - 10.2 mg/dL 05/29/2025 3:48 AM EDT [facility] Anion Gap 15(H) 4 - 12 05/29/2025 3:48 AM EDT [facility] eGFR (mL/min/1.73m2) 14(L) >=60 mL/min/1.7 3m2 05/29/2025 3:48 AM EDT [facility] Comment:ESTIMATED GFR IS NOT ACCURATE CREATININE CLEARANCE IN PREDICTING GLOMERULAR FILTRATION RATE. ESTIMATED GFR IS NOT APPLICABLE FOR DIALYSIS PATIENTS. Osmolality Calc 312.2 mOsm/kg 3:48 AM EDT [facility] Blood Venipuncture / Unknown 05/29/2025 2:50 AM EDT 05/29/2025 3:18 AM EDT us Vane Corley MD LAB BLOOD ORDERABLES Final Re sult [facility] [address] [phone] * (ABNORMAL) CBC with Automated Diff (05/29/2025 2:50 AM EDT) WBC 8.1 4.0 - 10.0 K/ L 05/29/2025 3:24 AM EDT [facility] RBC 2.66(L) 3.93 - 5.22 M/ L 05/29/2025 3:24 AM EDT [facility] Hemoglobin 8.0(L) 11.2 - 15.7 GM/DL 05/29/2025 3:24 AM EDT [facility] Hematocrit 25.6(L) 34.1 - 44.9 % 05/29/2025 3:24 AM EDT [facility] MCV 96(H) 79 - 95 fL 05/29/2025 3:24 AM EDT [facility] MCH 30.1 25.6 - 32.2 pg 05/29/2025 3:24 AM EDT [facility] MCHC 31.3(L) 32.2 - 35.5 GM/DL 05/29/2025 3:24 AM EDT [facility] RDW 18.7(H) 11.7 - 14.4 % 05/29/2025 3:24 AM EDT [facility] Platelets 215 140 - 375 K/CU MM 05/29/2025 3:24 AM EDT [facility] MPV 10.5 9.4 - 12.3 fL 05/29/2025 3:24 AM EDT [facility] % Neutros 71 34 - 71 % 05/29/2025 3:24 AM EDT [facility] % Lymphs 15(L) 19 - 52 % 05/29/2025 3:24 AM EDT [facility] % Monos 12 5 - 13 % 05/29/2025 3:24 AM EDT [facility] % Eos 2 1 - 6 % 05/29/2025 3:24 AM EDT [facility] % Baso 0 0 - 1 % 05/29/2025 3:24 AM EDT [facility] NRBC Absolute <0.01 0 - 0.012 K/ul 05/29/2025 3:24 AM EDT [facility] # Neutros 5.67 1.56 - 6.13 K/ L 05/29/2025 3:24 AM EDT [facility] # Lymphs 1.20 1.18 - 3.74 K/ L 05/29/2025 3:24 AM EDT [facility] # Monos 0.99(H) 0.24 - 0.86 K/ L 05/29/2025 3:24 AM EDT [facility] # Eos 0.13 0.04 - 0.36 K/ L 05/29/2025 3:24 AM EDT [facility] # Baso <0.03 0.01 - 0.08 K/ L 05/29/2025 3:24 AM EDT [facility] Immature Granulocytes-Re lative 0.50(H) 0.01 - 0.43 % 05/29/2025 3:24 AM EDT [facility] # IG 0.04(H) 0.00 - 0.03 K/uL 05/29/2025 3:24 AM EDT [facility] Blood Venipuncture / Unknown 05/29/2025 2:50 AM EDT 05/29/2025 3:17 AM EDT Narrative [facility] - 05/29/2025 3:24 AM EDT When [...] MD LAB BLOOD ORDERABLES Final Re sult [facility] [address] [phone] * (ABNORMAL) Glucose, Nova Meter (05/28/2025 11:29 PM EDT) POC-GLUCOSE 156(H) 70 - 110 mg/dL 05/28/2025 11:30 PM EDT [facility] Comment: In the event of poor peripheral blood flow, venous or arterial blood should be used due to the potential of erroneous results. Protocols Followed Escalator Constructor [id number] 05/28/2025 11:30 PM EDT [facility] Blood WHOLE BLOOD / Unknown 05/28/2025 11:29 PM EDT 05/28/2025 11:30 PM EDT Narrative [facility] - 05/28/2025 11:30 PM EDT Escalator Constructor ID is - [id number] us Vane Corley MD POINT OF CARE TEST ORDERABLES Final Result Performing Organization Address [facility] Co de Phone Number [facility] [address] [phone] * (ABNORMAL) Glucose, Nova Meter (05/28/2025 7:41 PM EDT) POC-GLUCOSE 194(H) 70 - 110 mg/dL 05/28/2025 7:43 PM EDT [facility] Comment: In the event of poor peripheral blood flow, venous or arterial blood should be used due to the potential of erroneous results. Protocols Followed Notified Nurse RBV Escalator Constructor [id number] 05/28/2025 7:43 PM EDT [facility] Blood WHOLE BLOOD / Unknown 05/28/2025 7:41 PM EDT 05/28/2025 7:43 PM EDT Narrative [facility] - 05/28/2025 7:43 PM EDT Escalator Constructor ID is - [id number] us Vane Corley MD POINT OF CARE TEST ORDERABLES Final Result Performing Organization Address [facility]/State/ZIP Co de Phone Number [facility] [address] [phone] * Glucose, Nova Meter (05/28/2025 3:37 PM EDT) POC-GLUCOSE 99 70 - 110 mg/dL 05/28/2025 3:39 PM EDT [facility] Comment: In the event of poor peripheral blood flow, venous or arterial blood should be used due to the potential of erroneous results. Protocols Followed Escalator Constructor [id number] 05/28/2025 3:39 PM EDT [facility] Blood WHOLE BLOOD / Unknown 05/28/2025 3:37 PM EDT 05/28/2025 3:39 PM EDT Narrative [facility] - 05/28/2025 3:39 PM EDT Escalator Constructor ID is - [id number] Vane Corley MD POINT OF CARE TEST ORDERABLES Final Result Performing Organization Address [facility] Co de Phone Number [facility] [address] [phone] * Urea Nitrogen, random urine (05/28/2025 1:19 PM EDT) [facility] Urea Nitrogen, Ur 562 mg/dL 05/28/2025 1:45 PM EDT [facility] Comment: Reference Range not established Reference range not established Urine 05/28/2025 1:19 PM EDT 05/28/2025 1:21 PM EDT us Pa Santos MD URINE ORDERABLES Final Result Performing Organization Address [facility]/ZIP Co de Phone Number [facility] [address] [phone] * (ABNORMAL) Protein / creatinine ratio, urine (05/28/2025 1:19 PM EDT) [facility] Signature Creatinine, Ur 39.00(L) 47.00 - 110.00 mg/dL 05/28/2025 1:45 PM EDT [facility] Protein Creatinine Ratio 1.95(H) <=0.20 05/28/2025 1:45 PM EDT [facility] Protein, Urine 76(H) 1 - 14 mg/dL 05/28/2025 1:45 PM EDT [facility] Urine 05/28/2025 1:19 PM EDT 05/28/2025 1:21 PM EDT Pa Santos MD URINE ORDERABLES Final Result Performing Organization Address [facility]/ZIP Co de Phone Number [facility] [address] [phone] * Sodium, random urine (05/28/2025 1:19 PM EDT) Sodium Urine 56 See Comment meq/L 05/28/2025 1:45 PM EDT [facility] Comment:Reference Range not established Urine 05/28/2025 1:19 PM EDT 05/28/2025 1:21 PM EDT Pa Santos MD URINE ORDERABLES Final Result Performing Organization Address [facility] Co de Phone Number [facility] [address] [phone] * (ABNORMAL) Urinalysis w/Microscopic (05/28/2025 1:19 PM EDT) Color, UA Light Yellow 05/28/2025 1:29 PM EDT [facility] Clarity, UA Clear Clear 05/28/2025 1:29 PM EDT [facility] Specific [place], UA 1.012 1.005 - 1.030 05/28/2025 1:29 PM EDT [facility] pH, UA 5.5(L) 6.0 - 8.0 05/28/2025 1:29 PM EDT [facility] Leukocytes, UA Negative Negative 05/28/2025 1:29 PM EDT [facility] Nitrite, UA Negative Negative 05/28/2025 1:29 PM EDT [facility] Protein, UA 1+(A) Negative 05/28/2025 1:29 PM EDT [facility] Glucose, UA 4+(A) Normal 05/28/2025 1:29 PM EDT [facility] Ketones, UA Negative Negative 05/28/2025 1:29 PM EDT [facility] Urobilinogen, UA Normal Normal 05/28/2025 1:29 PM EDT [facility] Bilirubin, UA Negative Negative 05/28/2025 1:29 PM EDT [facility] Blood, UA Negative Negative 05/28/2025 1:29 PM EDT [facility] RBC, UA 0-2(A) None Seen /HPF 05/28/2025 1:29 PM EDT [facility] WBC, UA 0-2(A) None Seen /HPF 05/28/2025 1:29 PM EDT [facility] Bacteria, UA None Seen None Seen, Trace 05/28/2025 1:29 PM EDT [facility] SQUAMOUS EPITHELIAL 0-2(A) None Seen /HPF 05/28/2025 1:29 PM EDT [facility] Specimen Source Urine, Sterile Collection 05/28/2025 1:29 PM EDT [facility] Urine STERILE URINE SPECIMEN CONTAINER / Unknown 05/28/2025 1:19 PM EDT 05/28/2025 1:24 PM EDT Pa Santos MD URINE ORDERABLES Final Result Performing Organization Address City/State/[facility] Co de Phone Number [facility] [address] [phone] * (ABNORMAL) Glucose, Nova Meter (05/28/2025 10:43 AM EDT) POC-GLUCOSE 191(H) 70 - 110 mg/dL 05/28/2025 10:47 AM EDT [facility] Comment: In the event of poor peripheral blood flow, venous or arterial blood should be used due to the potential of erroneous results. Notified Nurse RBV Escalator Constructor [id number] 05/28/2025 10:47 AM EDT [facility] Blood WHOLE BLOOD / Unknown 05/28/2025 10:43 AM EDT 05/28/2025 10:47 AM EDT Narrative [facility] - 05/28/2025 10:47 AM EDT Escalator Constructor ID is - [id number] us Vane Corley MD POINT OF CARE TEST ORDERABLES Final Result Performing Organization Address City/[facility]/ZIP Co de Phone Number [facility] [address] [phone] * Magnesium (05/28/2025 6:26 AM EDT) Pathologist [facility] Magnesium 1.8 1.6 - 2.6 mg/dL 05/28/2025 6:38 PM EDT [facility] Blood Venipuncture / Unknown 05/28/2025 6:26 AM EDT 05/28/2025 6:33 AM EDT us Vane Corley MD LAB BLOOD ORDERABLES Final Re sult Performing Organization Address City/[facility]/ZIP Co de Phone Number [facility] [address] [phone] * Lactate dehydrogenase (LDH) (05/28/2025 6:26 AM EDT) Pathologist [facility] LDH 165 125 - 220 U/L 05/28/2025 12:09 PM EDT [facility] Blood Venipuncture / Unknown 05/28/2025 6:26 AM EDT 05/28/2025 6:33 AM EDT us Pa Santos MD LAB BLOOD ORDERABLES Final Resu lt Performing Organization Address City/[facility]/ZIP Co de Phone Number [facility] [address] [phone] * Creatine Kinase (CK) (05/28/2025 6:26 AM EDT) Pathologist [facility] Total CK 41 29 - 168 U/L 05/28/2025 12:09 PM EDT [facility] Blood Venipuncture / Unknown 05/28/2025 6:26 AM EDT 05/28/2025 6:33 AM EDT us Pa Santos MD LAB BLOOD ORDERABLES Final Resu lt Performing Organization Address [facility] Co de Phone Number [facility] [address] [phone] * (ABNORMAL) Uric acid (05/28/2025 6:26 AM EDT) [facility] Uric Acid 6.7(H) 2.5 - 6.2 mg/dL 05/28/2025 12:09 PM EDT [facility] Blood Venipuncture / Unknown 05/28/2025 6:26 AM EDT 05/28/2025 6:33 AM EDT us Pa Santos MD LAB BLOOD ORDERABLES Final Resu lt Performing Organization Address [facility] Phone Number [facility] [address] [phone] * (ABNORMAL) Basic Metabolic Panel (05/28/2025 6:26 AM EDT) [facility] Sodium 142 136 - 145 meq/L 05/28/2025 6:59 AM EDT [facility] Potassium 5.3(H) 3.4 - 5.1 meq/L 05/28/2025 6:59 AM EDT [facility] CO2 18(L) 22 - 29 meq/L 05/28/2025 6:59 AM EDT [facility] Chloride 113(H) 98 - 112 meq/L 05/28/2025 6:59 AM EDT [facility] Glucose 106 82 - 115 mg/dL 05/28/2025 6:59 AM EDT [facility] BUN 94.0(H) 9.8 - 20.1 mg/dL 05/28/2025 6:59 AM EDT [facility] Creatinine 3.48(H) 0.57 - 1.11 mg/dL 05/28/2025 6:59 AM EDT [facility] BUN/Creatinine 27(H) 8 - 20 05/28/2025 6:59 AM EDT [facility] Calcium 9.2 8.4 - 10.2 mg/dL 05/28/2025 6:59 AM EDT [facility] Anion Gap 16(H) 4 - 12 05/28/2025 6:59 AM EDT [facility] eGFR (mL/min/1.73m2) 13(L) >=60 mL/min/1.7 3m2 05/28/2025 6:59 AM EDT [facility] Comment:ESTIMATED GFR IS NOT ACCURATE CREATININE CLEARANCE IN PREDICTING GLOMERULAR FILTRATION RATE. ESTIMATED GFR IS NOT APPLICABLE FOR DIALYSIS PATIENTS. Osmolality Calc 312.6 mOsm/kg 6:59 AM EDT [facility] Blood Venipuncture / Unknown 05/28/2025 6:26 AM EDT 05/28/2025 6:33 AM EDT us Vane Corley MD LAB BLOOD ORDERABLES Final Re sult [facility] [address] [phone] * (ABNORMAL) CBC - Hemogram (SJ-BKR) (05/28/2025 6:26 AM EDT) WBC 7.8 4.0 - 10.0 K/ L 05/28/2025 6:43 AM EDT [facility] RBC 2.59(L) 3.93 - 5.22 M/ L 05/28/2025 6:43 AM EDT [facility] Hemoglobin 7.9(L) 11.2 - 15.7 GM/DL 05/28/2025 6:43 AM EDT [facility] Hematocrit 24.7(L) 34.1 - 44.9 % 05/28/2025 6:43 AM EDT [facility] MCV 95 79 - 95 fL 05/28/2025 6:43 AM EDT [facility] MCH 30.5 25.6 - 32.2 pg 05/28/2025 6:43 AM EDT [facility] MCHC 32.0(L) 32.2 - 35.5 GM/DL 05/28/2025 6:43 AM EDT [facility] RDW 18.3(H) 11.7 - 14.4 % 05/28/2025 6:43 AM EDT [facility] Platelets 193 140 - 375 K/CU MM 05/28/2025 6:43 AM EDT [facility] MPV 10.7 9.4 - 12.3 fL 05/28/2025 6:43 AM EDT [facility] Blood Venipuncture / Unknown 05/28/2025 6:26 AM EDT 05/28/2025 6:33 AM EDT us Vane Corley MD LAB BLOOD ORDERABLES Final Re sult [facility] [address] [phone] * Glucose, Nova Meter (05/28/2025 6:03 AM EDT) [facility] POC-GLUCOSE 105 70 - 110 mg/dL 05/28/2025 6:04 AM EDT [facility] Comment: In the event of poor peripheral blood flow, venous or arterial blood should be used due to the potential of erroneous results. Notified Nurse RBV Escalator Constructor [id number] 05/28/2025 6:04 AM EDT [facility] Blood WHOLE BLOOD / Unknown 05/28/2025 6:03 AM EDT 05/28/2025 6:04 AM EDT Narrative [facility] - 05/28/2025 6:04 AM EDT Escalator Constructor ID is - [id number] us Vane Corley MD POINT OF CARE TEST ORDERABLES Final Result [facility] [address] [phone] * Transfuse RBC (05/28/2025 5:09 AM EDT) us Karlo Hercules PA-C FS_MODEL_IP_BLOOD TRANSFUSION ORDERABLES Final Result * Transfuse RBC: 1 Units (05/28/2025 5:09 AM EDT) us Karlo Hercules PA-C FS_MODEL_IP_BLOOD TRANSFUSION ORDERABLES Final Result * Glucose, Nova Meter (05/28/2025 12:09 AM EDT) POC-GLUCOSE 92 70 - 110 mg/dL 05/28/2025 12:10 AM EDT [facility] Comment: In the event of poor peripheral blood flow, venous or arterial blood should be used due to the potential of erroneous results. Notified Nurse RBV Escalator Constructor [phone] 05/28/2025 12:10 AM EDT [facility] Blood WHOLE BLOOD / Unknown 05/28/2025 12:09 AM EDT 05/28/2025 12:10 AM EDT Narrative [facility] - 05/28/2025 12:10 AM EDT Escalator Constructor ID is - [id number] us Vane Corley MD POINT OF CARE TEST ORDERABLES Final Result [facility] [address] [phone] * Prepare RBC: 1 Units (05/27/2025 10:54 PM EDT) Issue Date/Time [id number] [facility] ([place]) Product Identification Red Blood Cells [facility] ([place]) Product Code [id number] [facility] ([place]) Status Information TRANSFUSED [facility] ([place]) Unit Number [id number] [facility] ([place]) Blood Type 5100 [facility] ([place]) Cross Match Results Compatible [facility] ([place]) Karlo Hercules PA-C FS_MODEL_IP_BLOOD BANK PRODUCT ORDERABLES Final Result Performing Organization Address [facility]/ZIP Co de Phone Number [facility] ([place]) [address] [place] [address], [facility] [phone] * (ABNORMAL) Hemoglobin and hematocrit (05/27/2025 10:34 PM EDT) Hemoglobin 6.4(LL) 11.2 - 15.7 GM/DL 05/27/2025 10:42 PM EDT [facility] Hematocrit 19.7(L) 34.1 - 44.9 % 05/27/2025 10:42 PM EDT [facility] Blood Venipuncture / Unknown 05/27/2025 10:34 PM EDT 05/27/2025 10:38 PM EDT Vane Corley MD LAB BLOOD ORDERABLES Final Re sult Performing Organization Address City/[facility]/ZIP Co de Phone Number [facility] [address] [place] [address], [facility] [phone] * Transfuse RBC (05/27/2025 8:55 PM EDT) Vane Corley MD FS_MODEL_IP_BLOOD TRANSFUSION ORDERABLES Final Result * Transfuse RBC: 1 Units (05/27/2025 8:55 PM EDT) Vane Corley MD FS_MODEL_IP_BLOOD TRANSFUSION ORDERABLES Final Result * (ABNORMAL) Glucose, Nova Meter (05/27/2025 5:42 PM EDT) POC-GLUCOSE 161(H) 70 - 110 mg/dL 05/27/2025 5:43 PM EDT [facility] Comment: In the event of poor peripheral blood flow, venous or arterial blood should be used due to the potential of erroneous results. Notified Nurse RBV Escalator Constructor [phone] 05/27/2025 5:43 PM EDT [facility] Blood WHOLE BLOOD / Unknown 05/27/2025 5:42 PM EDT 05/27/2025 5:43 PM EDT Narrative [facility] - 05/27/2025 5:43 PM EDT Escalator Constructor ID is - [id number] Vane Corley MD POINT OF CARE TEST ORDERABLES Final Result Performing Organization Address [facility] Co de Phone Number [facility] [address] [phone] * Glucose, Nova Meter (05/27/2025 5:01 PM EDT) POC-GLUCOSE 110 70 - 110 mg/dL 05/27/2025 5:02 PM EDT [facility] Comment: In the event of poor peripheral blood flow, venous or arterial blood should be used due to the potential of erroneous results. Protocols Followed Escalator Constructor [phone] 05/27/2025 5:02 PM EDT [facility] Blood WHOLE BLOOD / Unknown 05/27/2025 5:01 PM EDT 05/27/2025 5:02 PM EDT Narrative [facility] - 05/27/2025 5:02 PM EDT Escalator Constructor ID is - [id number] us Vane Corley MD POINT OF CARE TEST ORDERABLES Final Result Performing Organization Address [facility] Co de Phone Number [facility] [address] [phone] * Type and Screen (05/27/2025 3:48 PM EDT) ABO/Rh O Positive 05/27/2025 3:54 PM EDT [facility] ([place]) Antibody Screen Negative 05/27/2025 3:54 PM EDT [facility] ([place]) HISTCHK HIST CHECK PERFORMED 05/27/2025 3:54 PM EDT [facility] ([place]) Blood Venipuncture / Unknown 05/27/2025 3:48 PM EDT 05/27/2025 3:54 PM EDT us Vane Corley MD [facility] TEST ORDERABLE S Final Result Performing Organization Address City/[facility]/ZIP Co de Phone Number [facility] (ID) [address] [place] [address], [facility] [phone] * Ferritin (05/27/2025 3:47 PM EDT) Ferritin 115.24 4.63 - 204.00 ng/mL 05/27/2025 4:30 PM EDT [facility] Blood Venipuncture / Unknown 05/27/2025 3:47 PM EDT 05/27/2025 3:53 PM EDT us Vane Corley MD LAB BLOOD ORDERABLES Final Re sult Performing Organization Address [facility]/ZIP Co de Phone Number [facility] [address] [phone] * (ABNORMAL) Iron and TIBC (05/27/2025 3:47 PM EDT) Iron 74 50 - 170 ug/dL 05/27/2025 4:30 PM EDT [facility] TIBC 203(L) 250 - 435 ug/dL 05/27/2025 4:30 PM EDT [facility] % Saturation 36 % 05/27/2025 4:30 PM EDT [facility] UIBC 129 05/27/2025 4:30 PM EDT [facility] Blood Venipuncture / Unknown 05/27/2025 3:47 PM EDT 05/27/2025 3:53 PM EDT us Vane Corley MD LAB BLOOD ORDERABLES Final Re sult Performing Organization Address City/[facility]/ZIP Co de Phone Number [facility] [address] [place] [address], [facility] [phone] * (ABNORMAL) Basic Metabolic Panel (05/27/2025 3:47 PM EDT) Sodium 141 136 - 145 meq/L 05/27/2025 4:30 PM EDT [facility] Potassium 5.9(H) 3.4 - 5.1 meq/L 05/27/2025 4:30 PM EDT [facility] CO2 17(L) 22 - 29 meq/L 05/27/2025 4:30 PM EDT [facility] Chloride 112 98 - 112 meq/L 05/27/2025 4:30 PM EDT [facility] Glucose 123(H) 82 - 115 mg/dL 05/27/2025 4:30 PM EDT [facility] BUN 103.5(H) 9.8 - 20.1 mg/dL 05/27/2025 4:30 PM EDT [facility] Creatinine 3.44(H) 0.57 - 1.11 mg/dL 05/27/2025 4:30 PM EDT [facility] BUN/Creatinine 30(H) 8 - 20 05/27/2025 4:30 PM EDT [facility] Calcium 9.7 8.4 - 10.2 mg/dL 05/27/2025 4:30 PM EDT [facility] Anion Gap 18(H) 4 - 12 05/27/2025 4:30 PM EDT [facility] eGFR (mL/min/1.73m2) 13(L) >=60 mL/min/1.7 3m2 05/27/2025 4:30 PM EDT [facility] Comment:ESTIMATED GFR IS NOT ACCURATE CREATININE CLEARANCE IN PREDICTING GLOMERULAR FILTRATION RATE. ESTIMATED GFR IS NOT APPLICABLE FOR DIALYSIS PATIENTS. Osmolality Calc 315.1 mOsm/kg 4:30 PM EDT [facility] Blood Venipuncture / Unknown 05/27/2025 3:47 PM EDT 05/27/2025 3:53 PM EDT us Vane Corley MD LAB BLOOD ORDERABLES Final Re sult [facility] [address] [phone] * (ABNORMAL) CBC with automated diff (05/27/2025 3:47 PM EDT) WBC 10.4(H) 4.0 - 10.0 K/ L 05/27/2025 3:57 PM EDT [facility] RBC 1.65(L) 3.93 - 5.22 M/ L 05/27/2025 3:57 PM EDT [facility] Hemoglobin 5.3(LL) 11.2 - 15.7 GM/DL 05/27/2025 3:57 PM EDT [facility] Hematocrit 16.9(L) 34.1 - 44.9 % 05/27/2025 3:57 PM EDT [facility] MCV 102(H) 79 - 95 fL 05/27/2025 3:57 PM EDT [facility] MCH 32.1 25.6 - 32.2 pg 05/27/2025 3:57 PM EDT [facility] MCHC 31.4(L) 32.2 - 35.5 GM/DL 05/27/2025 3:57 PM EDT [facility] RDW 17.2(H) 11.7 - 14.4 % 05/27/2025 3:57 PM EDT [facility] Platelets 219 140 - 375 K/CU MM 05/27/2025 3:57 PM EDT [facility] MPV 10.6 9.4 - 12.3 fL 05/27/2025 3:57 PM EDT [facility] % Neutros 72(H) 34 - 71 % 05/27/2025 3:57 PM EDT [facility] % Lymphs 15(L) 19 - 52 % 05/27/2025 3:57 PM EDT [facility] % Monos 12 5 - 13 % 05/27/2025 3:57 PM EDT [facility] % Eos 0(L) 1 - 6 % 05/27/2025 3:57 PM EDT [facility] % Baso 0 0 - 1 % 05/27/2025 3:57 PM EDT [facility] NRBC Absolute <0.01 0 - 0.012 K/ul 05/27/2025 3:57 PM EDT [facility] # Neutros 7.49(H) 1.56 - 6.13 K/ L 05/27/2025 3:57 PM EDT [facility] # Lymphs 1.55 1.18 - 3.74 K/ L 05/27/2025 3:57 PM EDT [facility] # Monos 1.19(H) 0.24 - 0.86 K/ L 05/27/2025 3:57 PM EDT [facility] # Eos 0.04 0.04 - 0.36 K/ L 05/27/2025 3:57 PM EDT [facility] # Baso <0.03 0.01 - 0.08 K/ L 05/27/2025 3:57 PM EDT [facility] Immature Granulocytes-Re lative 0.80(H) 0.01 - 0.43 % 05/27/2025 3:57 PM EDT [facility] # IG 0.08(H) 0.00 - 0.03 K/uL 05/27/2025 3:57 PM EDT [facility] Blood Venipuncture / Unknown 05/27/2025 3:47 PM EDT 05/27/2025 3:53 PM EDT Narrative [facility] - 05/27/2025 3:57 PM EDT When [...] MD LAB BLOOD ORDERABLES Final Re sult [facility] [address] [phone] * Prepare RBC: 1 Units (05/27/2025 3:23 PM EDT) Pathologist [facility] Issue Date/Time [id number] [facility] ([place] Product Identification Red Blood Cells [facility] [place]) Product Code [id number] [facility] [place] Status Information TRANSFUSED [facility] [place] Unit Number [id number] [facility] ([place] Blood Type 5100 [facility] [place] Cross Match Results Compatible [facility] ([place]) us Vane Corley MD FS_MODEL_IP_BLOOD BANK PRODUC T ORDERABLES Final Result [facility] ([place]) [address] [place] [id number], [facility] [phone] documented in this encounter Visit Diagnoses Diagnosis [...] blood sugar is less than 180 between 4323-2065, DO NOT give corrective insulin unless otherwise [...] 2000, Therapeutic Interchange for Formoterol component in [facility] RESPIRATORY THERAPY TREATMENT , What is the respiratory therapy Modality? Small volume Nebulization 2050 (Given - Provider: Geno Pablo) 0749 (Given - Provider: Izaiah Blandon, TAPE DECK INSTALLER)2038 (Given - Provider: Vijaya Velasco RRT) 0821 (Not Given - Provider: Roxanne Ashley CRT - Reason: Patient/family refused) atorvastatin (LIPITOR) tablet 80 mg 80 mg Every Night, oral, First dose on 05/27/25 at 2100 2051 (Given - Provider: Viri Shin, CHARISSE) 2010 (Given - Provider: Charley Ibanez RN) budesonide (PULMICORT) nebulizer suspension 0.5 mg 0.5 mg 2 times daily (RT), nebulization, First dose on 05/27/25 at 2000, Therapeutic Interchange for Mometasone component in [facility] *RESPIRATORY THERAPY TREATMENT*, What is the respiratory therapy Modality? Small volume Nebulization 2049 (Given - Provider: Geno Pablo) 0749 (Given - Provider: Izaiah Blandon, ECHO)2039 (Given - Provider: Vijaya Velasco RRT) 0821 (Not Given - Provider: Roxanne Ashley CRT - Reason: Patient/family refused) cholecalciferol (VITAMIN D3) [...] Charley Ibanez RN)1156 (Given - Provider: Bonita White RN) insulin regular (HUMULIN R,NOVOLIN R) injection (COMPLETED) 10 Units Once, intravenous, On 05/27/25 at 1730, For 1 dose, If blood sugar is less than 180 between 1165-7999, DO NOT give corrective insulin unless otherwise [...] Ibanez RN) 0842 (Given - Provider: Reece Thompson RN) sodium bicarbonate tablet 650 mg 650 mg 2 times daily, oral, First dose on 05/27/25 at 2100 2051 (Given - Provider: Viri Shin RN) 0950 (Given - Provider: Nicki Morrison)2010 (Given - Provider: Charley Ibanez RN) 0842 (Given - Provider: Reece Thompson RN) sodium chloride 0.9 % infusion (COMPLETED)(Linked [...] at 2100 2051 (Given - Provider: Viri Shin, RN) 2151 (Given - Provider: Charley Ibanez, CHARISSE) Continuous Medication Order 05/27/2025 05/28/2025 05/29/2025 dextrose [...] flush documented in this encounter Care Teams Associate Professor Plant Pathology Relationship Specialty Start Date End Date Anand Noble [id number] PCP - General Family Medicine 07/29/23 documented as of this encounter
--- OUTSIDE RECORDS SUMMARY | 2025-05-30 12:54 | XMS_ITS | Encounter Summary ---
Author Organization [email or web address] ([place], [place], [place], [place]) Address [address] [place] [address] Care Team Providers Care Leasing Property Manager Name Role Phone Anand Noble MD Primary Care Provider Encounter Details Date Type Department Care Team (Latest Contact Info) Description 05/27/2025 Travel Social History Tobacco Use Types Packs/Day Years [...] Date Juan rded Speak language other than [place] at home Not on file 09/01/2023 Want [...] Diagnoses Not on filedocumented in this encounter Care Teams Leasing Property Manager Relationship Specialty Start Date End Date Anand Noble MD [address] [place] [phone] PCP - General Family Medicine 07/29/23 documented as of this encounter
--- OUTSIDE RECORDS SUMMARY | 2025-05-30 12:55 | XMS_ITS | Referral Summary ---
Author Organization [email or web address] ([place], [place], [place], [place]) Address [address] [place] [address] Care Team Providers Care Paper Reclaiming Machine Operator Name Role Phone Anand Noble MD Primary Care Provider Encounters Date Type Department Care Team Description 05/27/2025 3:02 PM EDT - 05/29/2025 4:43 PM EDT Hospital Encounter [address] Medical Telemetry Unit 1 [place] [address] Alan Vargas DO Elsallabi, Osama, MD Discharge Disposition: Longterm Facility 05/27/2025 Travel from Last 3 Months Allergies Active Allergy Reactions Criticality Noted Date Comments Ciprofloxacin 07/25/2023 Codeine 07/25/2023 Doxycycline 07/25/2023 Erythromycin 07/25/2023 Sulfa (Sulfonamide Antibiotics) 09/2022 Medications atorvastatin (LIPITOR) 80 MG tablet Take 1 tablet (80 mg total) by mouth nightly. Active levothyroxine (SYNTHROID, LEVOTHROID) 75 MCG tablet Take 1 tablet (75 mcg total) by mouth Every morning on an empty stomach. Active traZODone (DESYREL) 50 MG tablet Take 1 tablet (50 mg total) by mouth nightly. Active insulin aspart U-100 (NovoLOG) 100 unit/mL (3 mL) InPn Inject subcutaneously 3 (three) times daily before meals Sliding Scale. Use as directed. Active pantoprazole (PROTONIX) 40 MG tablet Take 1 tablet (40 mg total) by mouth Daily (0600) for 30 days. 30 tablet 025 2024 Active acetaminophen (TYLENOL) 325 MG tablet Take 2 tablets (650 mg total) by mouth daily. Active albuterol 90 mcg/actuation inhaler Inhale 2 puffs by mouth every 4 (four) hours as needed for wheezing. Active aspirin 81 MG chewable tablet Take 1 tablet (81 mg total) by mouth daily. Active budesonide-formo teroL (SYMBICORT) 160-4.5 mcg/actuation inhaler Inhale 2 puffs by mouth 2 (two) times daily. Active bumetanide (BUMEX) 2 MG tablet Take 1 tablet (2 mg total) by mouth daily. Active carvediloL (COREG) 12.5 MG tablet Take 1 tablet (12.5 mg total) by mouth 2 (two) times daily with breakfast and dinner. Active doxazosin (CARDURA) 2 MG tablet Take 1 tablet (2 mg total) by mouth nightly. Active DULoxetine (CYMBALTA) 30 MG capsule Take 1 capsule (30 mg total) by mouth daily. Active ferrous sulfate 325 (65 FE) MG EC tablet Take 1 tablet (325 mg total) by mouth daily with breakfast. Active fluticasone propionate (FLONASE) 50 mcg/actuation nasal spray Administer 1 spray into each nostril daily. Active hydrALAZINE (APRESOLINE) 50 MG tablet Take 1 tablet (50 mg total) by mouth 3 (three) times daily. Active ipratropium-albu teroL (DUO-NEB) 0.5 mg-3 mg(2.5 mg base)/3 mL nebulizer solution Inhale 3 mLs by nebulization every 4 (four) hours as needed for wheezing. Active isosorbide mononitrate (IMDUR) 60 MG 24 hr tablet Take 1 tablet (60 mg total) by mouth every morning before breakfast. Active sodium zirconium cyclosilicate (Lokelma) 5 gram pwpk packet Take 1 packet (5 g total) by mouth daily. Active loratadine (CLARITIN) 10 mg tablet Take 1 tablet (10 mg total) by mouth daily. Active melatonin 5 mg tablet Take 1 tablet (5 mg total) by mouth nightly. Active guaiFENesin (mucINEX) 600 mg 12 hr tablet Take 1 tablet (600 mg total) by mouth 2 (two) times daily. Active ondansetron (ZOFRAN-ODT) 4 MG disintegrating tablet Take 1 tablet (4 mg total) by mouth every 6 (six) hours as needed for nausea or vomiting. Active polyethylene glycol (MIRALAX) 17 gram/dose powder Take 17 g by mouth daily as needed (Constipation). Active sennosides-docus ate sodium 8.6-50 mg per tablet Take 1 tablet by mouth 2 (two) times daily as needed for constipation. Active propylene glycoL (Systane Balance) 0.6 % drop Administer 1 drop into both eyes 4 (four) times daily. Active oxyCODONE (ROXICODONE) 5 MG immediate release tablet Take 1 tablet (5 mg total) by mouth every 8 (eight) hours as needed for pain for up to 3 days. Max Daily Amount: 15 mg 9 tablet 025 2024 Active ferrous gluconate (FERGON) 324 MG tablet Take 1 tablet (324 mg total) by mouth daily with breakfast. 2024 Discontinued cholecalciferol, vitamin D3, 1,250 mcg (50,000 unit) Tab Take 1 tablet (50,000 Units total) by mouth once a week. 2024 Discontinued sodium bicarbonate 650 MG tablet Take 1 tablet (650 mg total) by mouth 2 (two) times daily. 2024 Discontinued hydrOXYzine (ATARAX) 10 MG tablet Take 1 tablet (10 mg total) by mouth 3 (three) times daily. 2024 Discontinued fluticasone propion-salmeter oL (ADVAIR) 250-50 mcg/dose diskus inhaler Inhale 1 puff by mouth via inhaler 2 (two) times daily. 2024 Discontinued ipratropium (ATROVENT) 21 mcg (0.03 %) 0.03% nasal spray Administer 2 sprays into affected nostril(s) 2 (two) times daily One spray each nare. 2024 Discontinued empagliflozin (Jardiance) 10 mg tablet Take 1 tablet (10 mg total) by mouth daily. 2024 Discontinued(S top Taking at Discharge) oxyCODONE (ROXICODONE) 5 MG immediate release tablet Take 1 tablet (5 mg total) by mouth every 8 (eight) hours as needed for pain. Max Daily Amount: 15 mg 2024 Discontinued pantoprazole (PROTONIX) 40 MG tablet Take 1 tablet (40 mg total) by mouth daily. 2024 Discontinued(S top Taking at Discharge) Active Problems Problem Noted Date Diagnosed Date GI bleeding 05/27/2025 Acute renal failure (ARF) 07/25/2023 CAD (coronary artery disease) 04/12/2019 Hyperlipidemia 04/12/2019 08/08/2023 COPD (chronic obstructive pulmonary disease) 03/201908/08/2023 GERD (gastroesophageal reflux disease) 9 08/08/2023 Obstructive sleep apnea, adult 02/28/2019 1 10/09/2022 Stenosis of aorta 02/28/2019 08/08/2023 Chronic kidney disease, stage III (moderate) 01/201308/08/2023 Diabetes mellitus type 2, uncomplicated 04/29/20 13 08/08/2023 Morbid obesity 04/29/2013 08/08/2023 Primary hypertension 04/29/2013 08/08/2023 Social History Tobacco Use Types Packs/Day Years Used Date Smoking Tobacco: Never Smokeless Tobacco: Never Tobacco Cessation:Counseling Given: No Alcohol Use Standard Drinks/Week Comments Never 0 [...] Date Juan rded Speak language other than [place] at home Not on file 09/01/2023 Want [...] 05/29/2025 1:25 PM EDT Inhaled Oxygen Concentration 40% 4:23 AM EST Weight 70.7 kg (155 lb 14.4 oz) 05/27/2025 3:45 PM EDT Height 162.5 cm (5' 3.98 ) 05/27/2025 3:45 PM ED T Body Mass Index 26.78 05/27/2025 3:45 PM EDT Plan of Treatment Not on file Procedures Procedure Name Priority Date/Time Associated Diagnosis Comments NOVA GLUCOSE POC Routine 05/29/2025 10:4 6 AM EDT NOVA GLUCOSE POC Routine 05/29/2025 4:53 AM EDT BASIC METABOLIC PANEL Routine 05/29/2025 2:50 AM EDT CBC W/ AUTO DIFF Routine 05/29/2025 2:50 AM EDT NOVA GLUCOSE [...] POC Routine 05/28/2025 10:4 3 AM EDT MAGNESIUM Add-On 05/28/2025 6:26 AM EDT LACTATE DEHYDROGENASE (LDH) Add-On 05/28/2025 6:26 AM EDT CREATINE KINASE (CK) Add-On 05/28/2025 6:26 AM EDT URIC ACID Add-On 05/28/2025 6:26 AM EDT BASIC METABOLIC PANEL Routine 05/28/2025 6:26 AM EDT CBC HEMOGRAM (SJ-BKR) Routine 05/28/2025 6:26 AM EDT NOVA GLUCOSE [...] ([place] BKR) Routine 05/27/2025 3:48 PM EDT FERRITIN Routine 05/27/2025 3:47 PM EDT IRON AND TIBC Routine 05/27/2025 3:47 PM EDT BASIC METABOLIC PANEL Routine 05/27/2025 3:47 PM EDT CBC W/ AUTO DIFF Routine 05/27/2025 3:47 PM EDT FS_MODEL_IP_PREPARE RBC Routine 05/27/2025 3:23 PM EDT from Last 3 Months Results * (ABNORMAL) Glucose, Nova Meter (05/29/2025 10:46 AM EDT) Only the most recent of10 resultswithin the time period is included. [facility] Signature POC-GLUCOSE 183(H) 70 - 110 mg/dL 05/29/2025 10:47 AM EDT [facility] Comment: In the event of poor peripheral blood flow, venous or arterial blood should be used due to the potential of erroneous results. Notified Nurse RBV Linting Machine Operator [id number] 05/29/2025 10:47 AM EDT [facility] Blood WHOLE BLOOD / Unknown 05/29/2025 10:46 AM EDT 05/29/2025 10:47 AM EDT Narrative [facility] - 05/29/2025 10:47 AM EDT Linting Machine Operator ID is - [id number] us Vane Corley MD POINT OF CARE TEST ORDERABLES Final Result [facility] 1 [place], [place] [address] [phone] * (ABNORMAL) CBC with Automated Diff (05/29/2025 2:50 AM EDT) Only the most recent of2 resultswithin the time period is included. WBC 8.1 4.0 - 10.0 K/ L 05/29/2025 3:24 AM EDT [facility] RBC 2.66(L) 3.93 - 5.22 M/ L 05/29/2025 3:24 AM EDT [facility] Hemoglobin 8.0(L) 11.2 - 15.7 GM/DL 05/29/2025 3:24 AM EDT [facility] Hematocrit 25.6(L) 34.1 - 44.9 % 05/29/2025 3:24 AM EDT [facility] MCV 96(H) 79 - 95 fL 05/29/2025 3:24 AM EDT [facility] MCH 30.1 25.6 - 32.2 pg 05/29/2025 3:24 AM EDT [facility] MCHC 31.3(L) 32.2 - 35.5 GM/DL 05/29/2025 3:24 AM EDT [facility] RDW 18.7(H) 11.7 - 14.4 % 05/29/2025 3:24 AM EDT [facility] Platelets 215 140 - 375 K/CU MM 05/29/2025 3:24 AM EDT [facility] MPV 10.5 9.4 - 12.3 fL 05/29/2025 3:24 AM EDT [facility] % Neutros 71 34 - 71 % 05/29/2025 3:24 AM EDT [facility] % Lymphs 15(L) 19 - 52 % 05/29/2025 3:24 AM EDT [facility] % Monos 12 5 - 13 % 05/29/2025 3:24 AM EDT [facility] % Eos 2 1 - 6 % 05/29/2025 3:24 AM EDT [facility] % Baso 0 0 - 1 % 05/29/2025 3:24 AM EDT [facility] NRBC Absolute <0.01 0 - 0.012 K/ul 05/29/2025 3:24 AM EDT [facility] # Neutros 5.67 1.56 - 6.13 K/ L 05/29/2025 3:24 AM EDT [facility] # Lymphs 1.20 1.18 - 3.74 K/ L 05/29/2025 3:24 AM EDT [facility] # Monos 0.99(H) 0.24 - 0.86 K/ L 05/29/2025 3:24 AM EDT [facility] # Eos 0.13 0.04 - 0.36 K/ L 05/29/2025 3:24 AM EDT [facility] # Baso <0.03 0.01 - 0.08 K/ L 05/29/2025 3:24 AM EDT [facility] Immature Granulocytes-Re lative 0.50(H) 0.01 - 0.43 % 05/29/2025 3:24 AM EDT [facility] # IG 0.04(H) 0.00 - 0.03 K/uL 05/29/2025 3:24 AM EDT [facility] Blood Venipuncture / Unknown 05/29/2025 2:50 AM EDT 05/29/2025 3:17 AM EDT Narrative [facility] - 05/29/2025 3:24 AM EDT When [...] MD LAB BLOOD ORDERABLES Final Re sult [facility] [address] [phone] * (ABNORMAL) Basic Metabolic Panel (05/29/2025 2:50 AM EDT) Only the most recent of3 resultswithin the time period is included. Sodium 143 136 - 145 meq/L 05/29/2025 3:48 AM EDT [facility] Potassium 4.6 3.4 - 5.1 meq/L 05/29/2025 3:48 AM EDT [facility] CO2 20(L) 22 - 29 meq/L 05/29/2025 3:48 AM EDT [facility] Chloride 113(H) 98 - 112 meq/L 05/29/2025 3:48 AM EDT [facility] Glucose 134(H) 82 - 115 mg/dL 05/29/2025 3:48 AM EDT [facility] BUN 83.4(H) 9.8 - 20.1 mg/dL 05/29/2025 3:48 AM EDT [facility] Creatinine 3.13(H) 0.57 - 1.11 mg/dL 05/29/2025 3:48 AM EDT [facility] BUN/Creatinine 27(H) 8 - 20 05/29/2025 3:48 AM EDT [facility] Calcium 8.7 8.4 - 10.2 mg/dL 05/29/2025 3:48 AM EDT [facility] Anion Gap 15(H) 4 - 12 05/29/2025 3:48 AM EDT [facility] eGFR (mL/min/1.73m2) 14(L) >=60 mL/min/1.7 3m2 05/29/2025 3:48 AM EDT [facility] Comment:ESTIMATED GFR IS NOT ACCURATE CREATININE CLEARANCE IN PREDICTING GLOMERULAR FILTRATION RATE. ESTIMATED GFR IS NOT APPLICABLE FOR DIALYSIS PATIENTS. Osmolality Calc 312.2 mOsm/kg 3:48 AM EDT [facility] Blood Venipuncture / Unknown 05/29/2025 2:50 AM EDT 05/29/2025 3:18 AM EDT us Vane Corley MD LAB BLOOD ORDERABLES Final Re sult [facility] [address] [place] [id number], [facility] [phone] * Urea Nitrogen, random urine (05/28/2025 1:19 PM EDT) Urea Nitrogen, Ur 562 mg/dL 05/28/2025 1:45 PM EDT [facility] Comment: Reference Range not established Reference range not established Urine 05/28/2025 1:19 PM EDT 05/28/2025 1:21 PM EDT us Pa Santos MD URINE ORDERABLES Final Result Performing Organization Address [facility]/ZIP Co de Phone Number [facility] [address] [phone] * (ABNORMAL) Protein / creatinine ratio, urine (05/28/2025 1:19 PM EDT) Creatinine, Ur 39.00(L) 47.00 - 110.00 mg/dL 05/28/2025 1:45 PM EDT [facility] Protein Creatinine Ratio 1.95(H) <=0.20 05/28/2025 1:45 PM EDT [facility] Protein, Urine 76(H) 1 - 14 mg/dL 05/28/2025 1:45 PM EDT [facility] Urine 05/28/2025 1:19 PM EDT 05/28/2025 1:21 PM EDT us aP Santos MD URINE ORDERABLES Final Result Performing Organization Address [facility] Co de Phone Number [facility] [address] [phone] * Sodium, random urine (05/28/2025 1:19 PM EDT) Sodium Urine 56 See Comment meq/L 05/28/2025 1:45 PM EDT [facility] Comment:Reference Range not established Urine 05/28/2025 1:19 PM EDT 05/28/2025 1:21 PM EDT us Pa Santos MD URINE ORDERABLES Final Result Performing Organization Address City/[facility]/ZIP Co de Phone Number [facility] [address] [phone] * (ABNORMAL) Urinalysis w/Microscopic (05/28/2025 1:19 PM EDT) Color, UA Light Yellow 05/28/2025 1:29 PM EDT [facility] Clarity, UA Clear Clear 05/28/2025 1:29 PM EDT [facility] Specific [place], UA 1.012 1.005 - 1.030 05/28/2025 1:29 PM EDT [facility] pH, UA 5.5(L) 6.0 - 8.0 05/28/2025 1:29 PM EDT [facility] Leukocytes, UA Negative Negative 05/28/2025 1:29 PM EDT [facility] Nitrite, UA Negative Negative 05/28/2025 1:29 [facility] Protein, UA 1+(A) Negative 05/28/2025 1:29 PM EDT [facility] Glucose, UA 4+(A) Normal 05/28/2025 1:29 PM EDT [facility] Ketones, UA Negative Negative 05/28/2025 1:29 PM EDT [facility] Urobilinogen, UA Normal Normal 05/28/2025 1:29 PM EDT [facility] Bilirubin, UA Negative Negative 05/28/2025 1:29 PM EDT [facility] Blood, UA Negative Negative 05/28/2025 1:29 PM EDT [facility] RBC, UA 0-2(A) None Seen /HPF 05/28/2025 1:29 PM EDT [facility] WBC, UA 0-2(A) None Seen /HPF 05/28/2025 1:29 PM [facility] Bacteria, UA None Seen None Seen, Trace 05/28/2025 1:29 PM [facility] SQUAMOUS EPITHELIAL 0-2(A) None Seen /HPF 05/28/2025 1:29 PM [facility] Specimen Source Urine, Sterile Collection 05/28/2025 1:29 PM [facility] Urine STERILE URINE SPECIMEN CONTAINER / Unknown 05/28/2025 1:19 PM EDT 05/28/2025 1:24 PM EDT us Pa Santos MD URINE ORDERABLES Final Result [facility] [address] [phone] * (ABNORMAL) CBC - Hemogram (SJ-BKR) (05/28/2025 6:26 AM EDT) WBC 7.8 4.0 - 10.0 K/ L 05/28/2025 6:43 AM EDT [facility] RBC 2.59(L) 3.93 - 5.22 M/ L 05/28/2025 6:43 AM EDT [facility] Hemoglobin 7.9(L) 11.2 - 15.7 GM/DL 05/28/2025 6:43 AM EDT [facility] Hematocrit 24.7(L) 34.1 - 44.9 % 05/28/2025 6:43 AM EDT [facility] MCV 95 79 - 95 fL 05/28/2025 6:43 AM EDT [facility] MCH 30.5 25.6 - 32.2 pg 05/28/2025 6:43 AM EDT [facility] MCHC 32.0(L) 32.2 - 35.5 GM/DL 05/28/2025 6:43 AM EDT [facility] RDW 18.3(H) 11.7 - 14.4 % 05/28/2025 6:43 AM EDT [facility] Platelets 193 140 - 375 K/CU MM 05/28/2025 6:43 AM EDT [facility] MPV 10.7 9.4 - 12.3 fL 05/28/2025 6:43 AM EDT [facility] Blood Venipuncture / Unknown 05/28/2025 6:26 AM EDT 05/28/2025 6:33 AM EDT us Vane Corley MD LAB BLOOD ORDERABLES Final Re sult [facility] [address] [phone] * (ABNORMAL) Uric acid (05/28/2025 6:26 AM EDT) Uric Acid 6.7(H) 2.5 - 6.2 mg/dL 05/28/2025 12:09 PM EDT [facility] Blood Venipuncture / Unknown 05/28/2025 6:26 AM EDT 05/28/2025 6:33 AM EDT us Pa Santos MD LAB BLOOD ORDERABLES Final Resu lt Performing Organization Address [facility] Co de Phone Number [facility] [address] [phone] * Magnesium (05/28/2025 6:26 AM EDT) Magnesium 1.8 1.6 - 2.6 mg/dL 05/28/2025 6:38 PM EDT [facility] Blood Venipuncture / Unknown 05/28/2025 6:26 AM EDT 05/28/2025 6:33 AM EDT us Vnae Corley MD LAB BLOOD ORDERABLES Final Re sult Performing Organization Address [facility] Co de Phone Number [facility] [address] [phone] * Lactate dehydrogenase (LDH) (05/28/2025 6:26 AM EDT) LDH 165 125 - 220 U/L 05/28/2025 12:09 PM EDT [facility] Blood Venipuncture / Unknown 05/28/2025 6:26 AM EDT 05/28/2025 6:33 AM EDT us Pa Santos MD LAB BLOOD ORDERABLES Final Resu lt Performing Organization Address [facility]/ZIP Co de Phone Number [facility] [address] [phone] * Creatine Kinase (CK) (05/28/2025 6:26 AM EDT) Total CK 41 29 - 168 U/L 05/28/2025 12:09 PM EDT [facility] Blood Venipuncture / Unknown 05/28/2025 6:26 AM EDT 05/28/2025 6:33 AM EDT Pa Santos MD LAB BLOOD ORDERABLES Final Resu lt Performing Organization Address [facility] Co de Phone Number [facility] [address] [phone] * Transfuse RBC (05/28/2025 5:09 AM EDT) Only the most recent of2 resultswithin the time period is included. Karlo Hercules PA-C FS_MODEL_IP_BLOOD TRANSFUSION ORDERABLES Final Result * Prepare RBC: 1 Units (05/27/2025 10:54 PM EDT) Only the most recent of2 resultswithin the time period is included. Issue Date/Time [id number] [facility] (MD) Product Identification Red Blood Cells [facility] (MD) Product Code [id number] [facility] (MD) Status Information TRANSFUSED [facility]) Unit Number [id number] [facility] (MD) Blood Type 5100 [facility] (MD) Cross Match Results Compatible [facility] (MD) us Karlo Hercules PA-C FS_MODEL_IP_BLOOD BANK PRODUCT ORDERABLES Final Result Performing Organization Address City/[facility]/ZIP Co de Phone Number [facility] (MD) [address] [place] [address], [facility] [phone] * (ABNORMAL) Hemoglobin and hematocrit (05/27/2025 10:34 PM EDT) Hemoglobin 6.4(LL) 11.2 - 15.7 GM/DL 05/27/2025 10:42 PM EDT [facility] Hematocrit 19.7(L) 34.1 - 44.9 % 05/27/2025 10:42 PM EDT [facility] Blood Venipuncture / Unknown 05/27/2025 10:34 PM EDT 05/27/2025 10:38 PM EDT Vane Corley MD LAB BLOOD ORDERABLES Final Re sult [facility] [address] [phone] * Type and Screen (05/27/2025 3:48 PM EDT) ABO/Rh O Positive 05/27/2025 3:54 PM EDT [facility] (MD) Antibody Screen Negative 05/27/2025 3:54 PM EDT [facility] (MD) HISTCHK HIST CHECK PERFORMED 05/27/2025 3:54 PM EDT [facility] (MD) Blood Venipuncture / Unknown 05/27/2025 3:48 PM EDT 05/27/2025 3:54 PM EDT us Vane Corley MD [facility] TEST ORDERABLE S Final Result [facility] (MD) [address] [place] [address], [facility] [phone] * (ABNORMAL) Iron and TIBC (05/27/2025 3:47 PM EDT) Iron 74 50 - 170 ug/dL 05/27/2025 4:30 PM EDT [facility] TIBC 203(L) 250 - 435 ug/dL 05/27/2025 4:30 PM EDT [facility] % Saturation 36 % 05/27/2025 4:30 PM EDT [facility] UIBC 129 05/27/2025 4:30 PM EDT [facility] Blood Venipuncture / Unknown 05/27/2025 3:47 PM EDT 05/27/2025 3:53 PM EDT Vane Corley MD LAB BLOOD ORDERABLES Final Re sult Performing Organization Address City/[facility]/ZIP Co de Phone Number [facility] [address] [phone] * Ferritin (05/27/2025 3:47 PM EDT) Ferritin 115.24 4.63 - 204.00 ng/mL 05/27/2025 4:30 PM EDT [facility] Blood Venipuncture / Unknown 05/27/2025 3:47 PM EDT 05/27/2025 3:53 PM EDT us Vane Corley MD LAB BLOOD ORDERABLES Final Re sult Performing Organization Address [facility] Co de Phone Number [facility] [address] [phone] from Last 3 Months Insurance MEDICARE PPO Advance Directives For more information, please contact: [phone] * Full Code (Latest Code Status on File) Date Activated Date Inactivated Comments 05/27/2025 2:15 PM 05/29/2025 5:45 PM * Full Code Date Activated Date Inactivated Comments 07/25/2023 6:51 AM 08/24/2023 6:19 PM Care Teams Paper Reclaiming Machine Operator Relationship Specialty Start Date End Date Anand Noble MD [address] [place] [phone] PCP - General Family Medicine 07/29/23
--- OUTSIDE RECORDS SUMMARY | 2025-05-30 12:56 | XMS_ITS | Patient Health Record ---
Author Organization [id number] [facility] Address [address] [facility] [address] [place], [place] [id number] Support Name Relationship Address Phone Lyssa Higgins Guarantor Unknown [phone] Reason For Referral No Information Plan Of Treatment No Information Insurance Providers Payer Name Payer Address Payer Phone Subscriber Number Group Number Insured Name Patient Relationship to Insured Coverage Start Date Coverage End Date [employer] PPO MEDICARE [address] [address] [place], [place] [id number] Lyssa Higgins Self - patient is the insured 3
--- OUTSIDE RECORDS SUMMARY | 2025-05-30 12:56 | XMS_ITS | Patient Health Record ---
Author Organization [employer] Family Pr Sonia stone Address [address] [place] [address] Phone [phone] Care Team Providers Care Junior Systems Analyst Name Role Phone Josue Trejo Unavailable [phone] Migration, Provider Unavailable Unavailable Reason For Referral No Information Medications Medication SIG (Take, Route, Frequency, Duration) Notes Start Date End Date Status DULoxetine HCl 30 MG Capsule Delayed Release Particles Oral Active Amoxicillin-Pot Clavulanate 500-125 MG Tablet Oral Active Toujeo SoloStar 300 UNIT/ML Solution Pen-injector Subcutaneous Active FLUZONE HIGH-DOSE 2019-20 (PF) 180 MCG/0.5 ML INTRAMUSCULAR SYRINGE *Reorder from [employer] for eRx and Interaction Alerts* Active Anoro Ellipta 62.5-25 MCG/INH Aerosol Powder Breath Activated Inhalation *Pick strength-form from [employer] for eRX* Active Ventolin HFA 108 (90 Base) MCG/ACT Aerosol Solution Inhalation Active ULTRA-FINE SHORT PEN NEEDLE 31 gauge x 5/16 NEEDLE, DISPOSABLE MISCELLANEOUS *Reorder from [employer] for eRx and Interaction Alerts* Active Nystatin 913563 UNIT/GM Powder External Active Nitroglycerin 0.4 MG Tablet Sublingual Sublingual Active Cephalexin 500 MG Capsule Oral Active Atorvastatin Calcium 80 MG Tablet Oral Active Levothyroxine Sodium 75 MCG Tablet Oral Active NOVOLOG FLEXPEN U-100 INSULIN ASPART 100 UNIT/ML (3 ML) SUBCUTANEOUS *Reorder from [employer] for eRx and Interaction Alerts* Active GaviLyte-G 236-22.74-6.74 -5.86 gram Solution Reconstituted Oral *Pick strength-form from [employer] for eRX* Active traZODone HCl 50 MG [...] PROPIONATE 50 MCG/ACTUATION NASAL SPRAY,SUSPENSION *Reorder from [employer] for eRx and Interaction Alerts* Active Pantoprazole Sodium 40 MG Tablet Delayed Release Oral Active VITAMIN D2 1,250 MCG (50,000 UNIT) CAPSULE *Reorder from [employer] for eRx and Interaction Alerts* Active Social History Social History Additional Details Category Social Info Options Details Migrated Social History Migrated Social History Tobacco Years: Never smoker 06/26/2020 Problems Problem Type SNOMED Code ICD Code Onset Dates Problem Status W/U Status Risk Notes Problem History of suspected exposure to biological agent (57504490714188 ) Encounter for observation for suspected exposure to other biological agents ruled out (Z03.818) 0 Active confirmed Encounters Encounter Location Date Provider Diagnosis [facility] [address] [place] [address] 03/25/2025 Provider Migration [facility] [address] [place] [address] 03/26/2025 Provider Migration Plan Of Treatment No Information
--- OUTSIDE RECORDS SUMMARY | 2025-05-30 12:56 | XMS_ITS | Clinical Summary ---
Author Organization [employer] ([place], [place], [place], [place]) Address [address] [place] [address] Care Team Providers Care Saddle Lining Stitcher Name Role Phone Anand Noble MD Primary [...] obesity 04/29/2013 08/08/2023 Primary hypertension 04/29/2013 08/08/2023 Encounters Date Type Department Care Team Description 05/27/2025 3:02 PM EDT - 05/29/2025 4:43 PM EDT Hospital Encounter [address] Medical Telemetry Unit [address] [place] [address] Alan Vargas DO Elsallabi, Osama, MD Discharge Disposition: Snf Facility 05/27/2025 Travel from Last 3 Months Social History Tobacco Use Types Packs/Day Years [...] Date Juan rded Speak language other than Grenadian at home Not on file 09/01/2023 Want [...] 1:25 PM EDT Inhaled Oxygen Concentration 40% 08/08/2023 4 :23 AM EST Weight 70.7 kg (155 lb 14.4 oz) 05/27/2025 3:45 PM EDT Height 162.5 cm (5' 3.98 ) 05/27/2025 3:45 PM ED T Body Mass Index 26.78 05/27/2025 3:45 PM EDT Plan of Treatment Health Maintenance Due Date Last Done Comments DXA SCAN 1942 Diabetic Eye Exam 1952 Depression Screening (12+) 1954 Pneumococcal 50+ years (1 of 2 - PCV) 1961 Shingles Vaccine (Zoster) (1 of 2) 1992 Respiratory Syncytial Virus (RSV) Adult or (1 - 1-dose 75+ series) 2017 Medicare Initial AWV G0438 06/25/2022 Hemoglobin A1C 08/08/2023 Tobacco Cessation Counseling and Screening (12+) 07/25/2024 07/25/2023 Falls Risk Screening 08/24/2024 COVID-19 VACCINE (5 - 2024-2 6 season) 2025 07/21/2023, 07/16/2021, 10/20/2020, Additional history exists Influenza Vaccine (#1) 2025 , 05/09/2022, 06/04/2021, Additional history exists Diabetic Kidney Health Evalu ation (KED) 05/28/2026 05/28/2025 DTAP/TDAP/TD VACCINES (2 - T d or Tdap) 12/04/2032 12/04/2022 Procedures Procedure Name Priority Date/Time Associated Diagnosis [...] of10 resultswithin the time period is included. Pathologist [facility] POC-GLUCOSE 183(H) 70 - 110 mg/dL 05/29/2025 10:47 AM EDT [facility] Comment: In the event of poor peripheral blood flow, venous or arterial blood should be used due to the potential of erroneous results. Notified Nurse RBV Pin Drafter Operator [phone] 05/29/2025 10:47 AM EDT [facility] Blood WHOLE BLOOD / Unknown 05/29/2025 10:46 AM EDT 05/29/2025 10:47 AM EDT Narrative [facility] - 05/29/2025 10:47 AM EDT Pin Drafter Operator ID is - [id number] Vane Corley MD POINT OF CARE TEST ORDERABLES Final Result [facility] [address] [phone] * (ABNORMAL) CBC with Automated Diff (05/29/2025 2:50 AM EDT) Only the most recent of2 resultswithin the time period is included. [facility] WBC 8.1 4.0 - 10.0 K/ L 05/29/2025 3:24 AM EDT [facility] RBC 2.66(L) 3.93 - 5.22 M/ L 05/29/2025 3:24 AM EDT [facility] Hemoglobin 8.0(L) 11.2 - 15.7 GM/DL 05/29/2025 3:24 AM EDT [facility] Hematocrit 25.6(L) 34.1 - 44.9 % 05/29/2025 3:24 AM EDT [facility] MCV 96(H) 79 - 95 fL 05/29/2025 3:24 AM EDT [facility] MCH 30.1 25.6 - 32.2 pg 05/29/2025 3:24 AM EDT [facility] MCHC 31.3(L) 32.2 - 35.5 GM/DL 05/29/2025 3:24 AM EDT [facility] RDW 18.7(H) 11.7 - 14.4 % 05/29/2025 3:24 AM EDT [facility] Platelets 215 140 - 375 K/CU MM 05/29/2025 3:24 AM EDT [facility] MPV 10.5 9.4 - 12.3 fL 05/29/2025 3:24 AM EDT [facility] % Neutros 71 34 - 71 % 05/29/2025 3:24 AM EDT [facility] % Lymphs 15(L) 19 - 52 % 05/29/2025 3:24 AM EDT [facility] % Monos 12 5 - 13 % 05/29/2025 3:24 AM EDT [facility] % Eos 2 1 - 6 % 05/29/2025 3:24 AM EDT [facility] % Baso 0 0 - 1 % 05/29/2025 3:24 AM EDT [facility] NRBC Absolute <0.01 0 - 0.012 K/ul 05/29/2025 3:24 AM EDT [facility] # Neutros 5.67 1.56 - 6.13 K/ L 05/29/2025 3:24 AM EDT [facility] # Lymphs 1.20 1.18 - 3.74 K/ L 05/29/2025 3:24 AM EDT [facility] # Monos 0.99(H) 0.24 - 0.86 K/ L 05/29/2025 3:24 AM EDT [facility] # Eos 0.13 0.04 - 0.36 K/ L 05/29/2025 3:24 AM EDT [facility] # Baso <0.03 0.01 - 0.08 K/ L 05/29/2025 3:24 AM EDT [facility] Immature Granulocytes-Re lative 0.50(H) 0.01 - 0.43 % 05/29/2025 3:24 AM EDT [facility] # IG 0.04(H) 0.00 - 0.03 K/uL 05/29/2025 3:24 AM EDT [facility] Blood Venipuncture / Unknown 05/29/2025 2:50 AM EDT 05/29/2025 3:17 AM EDT Narrative [facility] - 05/29/2025 3:24 AM EDT [...] MD LAB BLOOD ORDERABLES Final Re sult [facility] [address] [phone] * (ABNORMAL) Basic Metabolic Panel (05/29/2025 2:50 AM EDT) Only the most recent of3 resultswithin the time period is included. Sodium 143 136 - 145 meq/L 05/29/2025 3:48 AM EDT [facility] Potassium 4.6 3.4 - 5.1 meq/L 05/29/2025 3:48 AM EDT [facility] CO2 20(L) 22 - 29 meq/L 05/29/2025 3:48 AM EDT [facility] Chloride 113(H) 98 - 112 meq/L 05/29/2025 3:48 AM EDT [facility] Glucose 134(H) 82 - 115 mg/dL 05/29/2025 3:48 AM EDT [facility] BUN 83.4(H) 9.8 - 20.1 mg/dL 05/29/2025 3:48 AM EDT [facility] Creatinine 3.13(H) 0.57 - 1.11 mg/dL 05/29/2025 3:48 AM EDT [facility] BUN/Creatinine 27(H) 8 - 20 05/29/2025 3:48 AM EDT [facility] Calcium 8.7 8.4 - 10.2 mg/dL 05/29/2025 3:48 AM EDT [facility] Anion Gap 15(H) 4 - 12 05/29/2025 3:48 AM EDT [facility] eGFR (mL/min/1.73m2) 14(L) >=60 mL/min/1.7 3m2 05/29/2025 3:48 AM EDT [facility] Comment:ESTIMATED GFR IS NOT ACCURATE CREATININE CLEARANCE IN PREDICTING GLOMERULAR FILTRATION RATE. ESTIMATED GFR IS NOT APPLICABLE FOR DIALYSIS PATIENTS. Osmolality Calc 312.2 mOsm/kg 3:48 AM EDT [facility] Blood Venipuncture / Unknown 05/29/2025 2:50 AM EDT 05/29/2025 3:18 AM EDT us Vaen Corley MD LAB BLOOD ORDERABLES Final Re sult Performing Organization Address [facility]/ZIP Co de Phone Number [facility] [address] [phone] * Urea Nitrogen, random urine (05/28/2025 1:19 PM EDT) Urea Nitrogen, Ur 562 mg/dL 05/28/2025 1:45 PM EDT [facility] Comment: Reference Range not established Reference range not established Urine 05/28/2025 1:19 PM EDT 05/28/2025 1:21 PM EDT us Pa Santos MD URINE ORDERABLES Final Result Performing Organization Address [facility]/ZIP Co de Phone Number [facility] [address] [phone] * (ABNORMAL) Protein / creatinine ratio, urine (05/28/2025 1:19 PM EDT) Creatinine, Ur 39.00(L) 47.00 - 110.00 mg/dL 05/28/2025 1:45 PM EDT [facility] Protein Creatinine Ratio 1.95(H) <=0.20 05/28/2025 1:45 PM EDT [facility] Protein, Urine 76(H) 1 - 14 mg/dL 05/28/2025 1:45 PM EDT [facility] Urine 05/28/2025 1:19 PM EDT 05/28/2025 1:21 PM EDT Pa Santos MD URINE ORDERABLES Final Result Performing Organization Address [facility]/ZIP Co de Phone Number [facility] [address] [phone] * Sodium, random urine (05/28/2025 1:19 PM EDT) Sodium Urine 56 See Comment meq/L 05/28/2025 1:45 PM EDT [facility] Comment:Reference Range not established Urine 05/28/2025 1:19 PM EDT 05/28/2025 1:21 PM EDT Pa Santos MD URINE ORDERABLES Final Result Performing Organization Address [facility] Co de Phone Number [facility] [address] [phone] * (ABNORMAL) Urinalysis w/Microscopic (05/28/2025 1:19 PM EDT) Color, UA Light Yellow 05/28/2025 1:29 PM EDT [facility] Clarity, UA Clear Clear 05/28/2025 1:29 PM EDT [facility] Specific [place], UA 1.012 1.005 - 1.030 05/28/2025 1:29 PM EDT [facility] pH, UA 5.5(L) 6.0 - 8.0 05/28/2025 1:29 PM EDT [facility] Leukocytes, UA Negative Negative 05/28/2025 1:29 PM EDT [facility] Nitrite, UA Negative Negative 05/28/2025 1:29 PM EDT [facility] Protein, UA 1+(A) Negative 05/28/2025 1:29 PM EDT [facility] Glucose, UA 4+(A) Normal 05/28/2025 1:29 PM EDT [facility] Ketones, UA Negative Negative 05/28/2025 1:29 PM EDT [facility] Urobilinogen, UA Normal Normal 05/28/2025 1:29 PM EDT [facility] Bilirubin, UA Negative Negative 05/28/2025 1:29 PM EDT [facility] Blood, UA Negative Negative 05/28/2025 1:29 PM EDT [facility] RBC, UA 0-2(A) None Seen /HPF 05/28/2025 1:29 PM EDT [facility] WBC, UA 0-2(A) None Seen /HPF 05/28/2025 1:29 PM EDT [facility] Bacteria, UA None Seen None Seen, Trace 05/28/2025 1:29 PM EDT [facility] SQUAMOUS EPITHELIAL 0-2(A) None Seen /HPF 05/28/2025 1:29 PM EDT [facility] Specimen Source Urine, Sterile Collection 05/28/2025 1:29 PM EDT [facility] Urine STERILE URINE SPECIMEN CONTAINER / Unknown 05/28/2025 1:19 PM EDT 05/28/2025 1:24 PM EDT Pa Santos MD URINE ORDERABLES Final Result Performing Organization Address [facility]/State/[facility] Co de Phone Number [facility] [address] [phone] * (ABNORMAL) CBC - Hemogram (SJ-BKR) (05/28/2025 6:26 AM EDT) WBC 7.8 4.0 - 10.0 K/ L 05/28/2025 6:43 AM EDT [facility] RBC 2.59(L) 3.93 - 5.22 M/ L 05/28/2025 6:43 AM EDT [facility] Hemoglobin 7.9(L) 11.2 - 15.7 GM/DL 05/28/2025 6:43 AM EDT [facility] Hematocrit 24.7(L) 34.1 - 44.9 % 05/28/2025 6:43 AM EDT [facility] MCV 95 79 - 95 fL 05/28/2025 6:43 AM EDT [facility] MCH 30.5 25.6 - 32.2 pg 05/28/2025 6:43 AM EDT [facility] MCHC 32.0(L) 32.2 - 35.5 GM/DL 05/28/2025 6:43 AM EDT [facility] RDW 18.3(H) 11.7 - 14.4 % 05/28/2025 6:43 AM EDT [facility] Platelets 193 140 - 375 K/CU MM 05/28/2025 6:43 AM EDT [facility] MPV 10.7 9.4 - 12.3 fL 05/28/2025 6:43 AM EDT [facility] Blood Venipuncture / Unknown 05/28/2025 6:26 AM EDT 05/28/2025 6:33 AM EDT us Vane Corley MD LAB BLOOD ORDERABLES Final Re sult Performing Organization Address City/[facility]/ZIP Co de Phone Number [facility] [address] [phone] * (ABNORMAL) Uric acid (05/28/2025 6:26 AM EDT) Uric Acid 6.7(H) 2.5 - 6.2 mg/dL 05/28/2025 12:09 PM EDT [facility] Blood Venipuncture / Unknown 05/28/2025 6:26 AM EDT 05/28/2025 6:33 AM EDT us Pa Santos MD LAB BLOOD ORDERABLES Final Resu lt [facility] [address] [phone] * Magnesium (05/28/2025 6:26 AM EDT) Magnesium 1.8 1.6 - 2.6 mg/dL 05/28/2025 6:38 PM EDT [facility] Blood Venipuncture / Unknown 05/28/2025 6:26 AM EDT 05/28/2025 6:33 AM EDT us Vane Corley MD LAB BLOOD ORDERABLES Final Re sult [facility] [address] [phone] * Lactate dehydrogenase (LDH) (05/28/2025 6:26 AM EDT) LDH 165 125 - 220 U/L 05/28/2025 12:09 PM EDT [facility] Blood Venipuncture / Unknown 05/28/2025 6:26 AM EDT 05/28/2025 6:33 AM EDT us Pa Santos MD LAB BLOOD ORDERABLES Final Resu lt Performing Organization Address [facility]/ZIP Co de Phone Number [facility] [address] [phone] * Creatine Kinase (CK) (05/28/2025 6:26 AM EDT) Total CK 41 29 - 168 U/L 05/28/2025 12:09 PM EDT [facility] Blood Venipuncture / Unknown 05/28/2025 6:26 AM EDT 05/28/2025 6:33 AM EDT us Pa Santos MD LAB BLOOD ORDERABLES Final Resu lt Performing Organization Address [facility]/ZIP Co de Phone Number [facility] [address] [phone] * Transfuse RBC (05/28/2025 5:09 AM EDT) Only the most recent of2 resultswithin the time period is included. Karlo Hercules PA-C FS_MODEL_IP_BLOOD TRANSFUSION ORDERABLES Final Result * Prepare RBC: 1 Units (05/27/2025 10:54 PM EDT) Only the most recent of2 resultswithin the time period is included. Pathologist [facility] Issue Date/Time [id number] [facility] BLOOD [facility] ([place] Product Identification Red Blood Cells [facility] [place]) Product Code [id number] [facility] [place] Status Information TRANSFUSED [facility] [place] Unit Number [id number] [facility] [place] Blood Type 5100 [facility] [place] Cross Match Results Compatible [facility] [place] Karlo Hercules PA-C FS_MODEL_IP_BLOOD BANK PRODUCT ORDERABLES Final Result Performing Organization Address [facility]/ZIP Co de Phone Number [facility] [place] [address] [phone] * (ABNORMAL) Hemoglobin and hematocrit (05/27/2025 10:34 PM EDT) [facility] Hemoglobin 6.4(LL) 11.2 - 15.7 GM/DL 05/27/2025 10:42 PM EDT [facility] Hematocrit 19.7(L) 34.1 - 44.9 % 05/27/2025 10:42 PM EDT [facility] Blood Venipuncture / Unknown 05/27/2025 10:34 PM EDT 05/27/2025 10:38 PM EDT Vane Corley MD LAB BLOOD ORDERABLES Final Re sult [facility] [address] [phone] * Type and Screen (05/27/2025 3:48 PM EDT) [facility] ABO/Rh O Positive 05/27/2025 3:54 PM EDT [facility] BLOOD BANK ([place]) Antibody Screen Negative 05/27/2025 3:54 PM EDT [facility] ([place] HISTCHK HIST CHECK PERFORMED 05/27/2025 3:54 PM EDT [facility] [place] Blood Venipuncture / Unknown 05/27/2025 3:48 PM EDT 05/27/2025 3:54 PM EDT us Vane Corley MD [facility] BLOOD BANK TEST ORDERABLE S Final Result [facility] ([place]) [address] [place] [address], [facility] [phone] * (ABNORMAL) Iron and TIBC (05/27/2025 3:47 PM EDT) Iron 74 50 - 170 ug/dL 05/27/2025 4:30 PM EDT [facility] TIBC 203(L) 250 - 435 ug/dL 05/27/2025 4:30 PM EDT [facility] % Saturation 36 % 05/27/2025 4:30 PM EDT [facility] UIBC 129 05/27/2025 4:30 PM EDT [facility] Blood Venipuncture / Unknown 05/27/2025 3:47 PM EDT 05/27/2025 3:53 PM EDT us Vane Corley MD LAB BLOOD ORDERABLES Final Re sult [facility] [address] [place] [address], [facility] [phone] * Ferritin (05/27/2025 3:47 PM EDT) Ferritin 115.24 4.63 - 204.00 ng/mL 05/27/2025 4:30 PM EDT [facility] Blood Venipuncture / Unknown 05/27/2025 3:47 PM EDT 05/27/2025 3:53 PM EDT us Vane Corley MD LAB BLOOD ORDERABLES Final Re sult [facility] [address] [place] [address], [facility] [phone] from Last 3 Months Insurance [employer] MED[employer] PPO Advance Directives For more information, please contact: [phone] * Full Code (Latest Code Status on File) Date Activated Date Inactivated Comments 05/27/2025 2:15 PM 05/29/2025 5:45 PM * Full Code Date Activated Date Inactivated Comments 07/25/2023 6:51 AM 08/24/2023 6:19 PM Care Teams Saddle Lining Stitcher Relationship Specialty Start Date [place] [address] PCP - General Family Medicine 07/29/23
[2025-05-30 13:04] LABS: Hematocrit 24.4 % (37.0-47.0); Hemoglobin 7.7 g/dL (12.2-16.2)
== END 2025-05-30 23:59 | disposition home or self-care (01) ==
LOC: LAB.DROPOF 12:51
PROVIDERS: PCP Family Medicine Hospice and Palliative Medicine; Visit Provider Family Medicine Hospice and Palliative Medicine
DX: I13.0 Hypertensive heart and chronic kidney disease with heart failure and stage 1 through stage 4 chronic kidney disease, or unspecified chronic kidney disease; I50.32 Chronic diastolic (congestive) heart failure; N18.4 Chronic kidney disease, stage 4 (severe); E11.22 Type 2 diabetes mellitus with diabetic chronic kidney disease; D62 Acute posthemorrhagic anemia
CPT/HCPCS: 85014; 85018

== ENCOUNTER 2025-06-08 08:53 | Outpatient (CLI) | payer MEDICARE, SELFPAY ==
--- OUTSIDE RECORDS SUMMARY | 2025-03-25 05:00 | XMS_ITS ---
Author Organization [facility] Address [address] [place] [address] Phone [phone] Care Team Providers Care Final Inspection Supervisor Name Role Phone Lyssa Trejo Unavailable [phone] Migration, Provider Unavailable Unavailable REASON FOR VISIT EMR-Steven Encounters Encounter Location Date Provider Diagnosis [facility] [address] [place] [address] 03/25/2025 Provider Migration Plan Of Treatment No Information Progress Notes * LYSSA SAABDOB:[birth year] (84 yo F)Acc No.[id number]:03/25/2025 Patient: Lisa GREENELYSSA JACOBS :1940 A ge:84 Y S ex:Female [facility] [address] Subjective: * Chief Complaints: * E MR-Steven * * Date:
--- OUTSIDE RECORDS SUMMARY | 2025-03-26 05:00 | XMS_ITS ---
Author Organization [employer] [facility] bertha [facility] Address [address] [place] [address] Phone [phone] Care Team Providers Care Convention Planner Name Role Phone Lyssa Trejo Unavailable [phone] Migration, Provider Unavailable Unavailable REASON FOR VISIT EMR-Steven Medications Medication SIG (Take, Route, Frequency, Duration) Notes Start Date End Date Status Ferrous Sulfate 325 (65 Fe) MG Tablet Oral Active Ventolin HFA 108 (90 Base) MCG/ACT Aerosol Solution Inhalation Active FLUZONE HIGH-DOSE 2019-20 (PF) 180 MCG/0.5 ML INTRAMUSCULAR SYRINGE *Reorder from [employer] for eRx and Interaction Alerts* Active Nystatin 950210 UNIT/GM Powder External Active Nitroglycerin 0.4 MG Tablet Sublingual Sublingual Active ULTRA-FINE SHORT PEN NEEDLE 31 gauge x 5/16 NEEDLE, DISPOSABLE MISCELLANEOUS *Reorder from [employer] for eRx and Interaction Alerts* Active Cephalexin 500 MG Capsule Oral Active Atorvastatin Calcium 80 MG Tablet Oral Active Levothyroxine Sodium 75 MCG Tablet Oral Active NOVOLOG FLEXPEN U-100 INSULIN ASPART 100 UNIT/ML (3 ML) SUBCUTANEOUS *Reorder from [employer] for eRx and Interaction Alerts* Active Sodium Bicarbonate 650 MG Tablet Oral Active Lantus 100 UNIT/ML Solution Subcutaneous Active VITAMIN D2 1,250 MCG (50,000 UNIT) CAPSULE *Reorder from [employer] for eRx and Interaction Alerts* Active GaviLyte-G 236-22.74-6.74 -5.86 gram Solution Reconstituted Oral *Pick strength-form from [employer] for eRX* Active traZODone HCl 50 MG Tablet Oral Active DULoxetine HCl 30 MG Capsule Delayed Release Particles Oral Active Furosemide 80 MG Tablet Oral Active Fluconazole 100 MG Tablet Oral Active FLUTICASONE PROPIONATE 50 MCG/ACTUATION NASAL SPRAY,SUSPENSION *Reorder from [employer] for eRx and Interaction Alerts* Active Pantoprazole Sodium 40 MG Tablet Delayed Release Oral Active Amoxicillin-Pot Clavulanate 500-125 MG Tablet Oral Active Toujeo SoloStar 300 UNIT/ML Solution Pen-injector Subcutaneous Active Clopidogrel Bisulfate 75 MG Tablet Oral Active Anoro Ellipta 62.5-25 MCG/INH Aerosol Powder Breath Activated Inhalation *Pick strength-form from [employer] for eRX* Active Bystolic 5 MG Tablet Oral Active Social History Social History Additional Details Category Social Info Options Details Migrated Social History Migrated Social History Tobacco Years: Never smoker 06/26/2020 Encounters Encounter Location Date Provider Diagnosis [facility], [facility] [address] [place] [address] 03/26/2025 Provider Migration Plan Of Treatment No Information Progress Notes * KAISER JUDYMARIANELADOB:[birth year] (84 yo F)Acc No.[id number]:03/26/2025 Patient: LYSSA POLANCO :1940 A ge:84 Y S ex:Female Address:[address] [place] [address] Subjective: * Chief Complaints: * E MR-Steven * Social History: M igrated Social History: M igrated Social History: Tobacco Years: Never smoker 06/26/2020. * Medications: T akingBystolic 5 MG Tablet Oral Clopidogrel Bisulfate 75 MG Tablet Oral Pantoprazole Sodium 40 MG Tablet Delayed Release Oral FLUTICASONE PROPIONATE 50 MCG/ACTUATION NASAL SPRAY,SUSPENSION , Notes to Pharmacist: *Reorder from [employer] for eRx and Interaction Alerts*Cephalexin 500 MG Capsule Oral Levothyroxine Sodium 75 MCG Tablet Oral ULTRA-FINE SHORT PEN NEEDLE 31 gauge x 5/16 NEEDLE, DISPOSABLE MISCELLANEOUS , Notes to Pharmacist: *Reorder from [employer] for eRx and Interaction Alerts*Ferrous Sulfate 325 (65 Fe) MG Tablet Oral Atorvastatin Calcium 80 MG Tablet Oral Nitroglycerin 0.4 MG Tablet Sublingual Sublingual Nystatin 160749 UNIT/GM Powder External Ventolin HFA 108 (90 Base) MCG/ACT Aerosol Solution Inhalation Anoro Ellipta 62.5-25 MCG/INH Aerosol Powder Breath Activated Inhalation , Notes to Pharmacist: *Pick strength-form from [employer] for eRX*Lantus 100 UNIT/ML Solution Subcutaneous Sodium Bicarbonate 650 MG Tablet Oral traZODone HCl 50 MG Tablet Oral GaviLyte-G 236-22.74-6.74 -5.86 gram Solution Reconstituted Oral , Notes to Pharmacist: *Pick strength-form from [facility] for eRX*NOVOLOG FLEXPEN U-100 INSULIN ASPART 100 UNIT/ML (3 ML) SUBCUTANEOUS , Notes to Pharmacist: *Reorder from [facility] for eRx and Interaction Alerts*DULoxetine HCl 30 MG Capsule Delayed Release Particles Oral Fluconazole 100 MG Tablet Oral Furosemide 80 MG Tablet Oral VITAMIN D2 1,250 MCG (50,000 UNIT) CAPSULE , Notes to Pharmacist: *Reorder from [facility] for eRx and Interaction Alerts*Amoxicillin-Pot Clavulanate 500-125 MG Tablet Oral Toujeo SoloStar 300 UNIT/ML Solution Pen-injector Subcutaneous FLUZONE HIGH-DOSE 2019-20 (PF) 180 MCG/0.5 ML INTRAMUSCULAR SYRINGE , Notes to Pharmacist: *Reorder from [facility] for eRx and Interaction Alerts*Taking Bystolic 5 MG Tablet Oral Taking Clopidogrel Bisulfate 75 MG Tablet Oral Taking Pantoprazole Sodium 40 MG Tablet Delayed Release Oral Taking FLUTICASONE PROPIONATE 50 MCG/ACTUATION NASAL SPRAY,SUSPENSION , Notes to Pharmacist: *Reorder from [facility] for eRx and Interaction Alerts*Taking Cephalexin 500 MG Capsule Oral Taking Levothyroxine Sodium 75 MCG Tablet Oral Taking ULTRA- FINE SHORT PEN NEEDLE 31 gauge x 5/16 NEEDLE, DISPOSABLE MISCELLANEOUS , Notes to Pharmacist: *Reorder from [facility] for eRx and Interaction Alerts*Taking Ferrous Sulfate 325 (65 Fe) MG Tablet Oral Taking Atorvastatin Calcium 80 MG Tablet Oral Taking Nitroglycerin 0.4 MG Tablet Sublingual Sublingual Taking Nystatin 053280 UNIT/GM Powder External Taking Ventolin HFA 108 (90 Base) MCG/ACT Aerosol Solution Inhalation Taking Anoro Ellipta 62.5-25 MCG/INH Aerosol Powder Breath Activated Inhalation , Notes to Pharmacist: *Pick strength-form from [facility] for eRX*Taking Lantus 100 UNIT/ML Solution Subcutaneous Taking Sodium Bicarbonate 650 MG Tablet Oral Taking traZODone HCl 50 MG Tablet Oral Taking GaviLyte-G 236-22.74-6.74 -5.86 gram Solution Reconstituted Oral , Notes to Pharmacist: *Pick strength-form from [facility] for eRX*Taking NOVOLOG FLEXPEN U-100 INSULIN ASPART 100 UNIT/ML (3 ML) SUBCUTANEOUS , Notes to Pharmacist: *Reorder from [facility] for eRx and Interaction Alerts*Taking DULoxetine HCl 30 MG Capsule Delayed Release Particles Oral Taking Fluconazole 100 MG Tablet Oral Taking Furosemide 80 MG Tablet Oral Taking VITAMIN D2 1,250 MCG (50,000 UNIT) CAPSULE , Notes to Pharmacist: *Reorder from [facility] for eRx and Interaction Alerts*Taking Amoxicillin-Pot Clavulanate 500-125 MG Tablet Oral Taking Toujeo SoloStar 300 UNIT/ML Solution Pen-injector Subcutaneous Taking FLUZONE HIGH-DOSE 2018- (PF) 180 MCG/0.5 ML INTRAMUSCULAR SYRINGE , Notes to Pharmacist: *Reorder from [facility] for eRx and Interaction Alerts* * * Date:
--- OUTSIDE RECORDS SUMMARY | 2025-05-27 15:02 | XMS_ITS | Encounter Summary ---
Author Organization [employer] ([place], [place], [place], [place]) Address [address] [place] [address] Care Team Providers Care Tax Collection Coordinator Name Role Phone Anand Noble MD Primary Care Provider Reason for Visit * Auth/Cert (Routine) Specialty Diagnoses / Procedures Referred By Cooper nelson Referred To Contact Diagnoses GI bleeding GIB (GastroIntestinal Bleed) [address] [place] [address] Phone: tel: fax: [address] [place] [address] Phone: tel: fax: Referral ID Status Reason Start Date Expiration Date Visits Re quested Visits Authorized [id number] 1 1 Encounter Details Date Type Department Care Team (Late st Contact Info) Description 05/27/2025 3:02 PM EDT - 05/29/2025 4:43 PM EDT Hospital Encounter [address] Tele[address] [place] [address] Alan Vargas DO [address] [place] [address] Vane Corley MD [address] [place] [address] Discharge Disposition: Fpc Facility Social History Tobacco Use Types Packs/Day [...] Date Juan rded Speak language other than [place]i at home Not on file 09/01/2023 Want [...] Your Medications These medications were sent to [facility] at [address] [facility] [id number] [address] oxyCODONE 5 MG immediate release tablet pantoprazole [...] Medicine, Sports Medicine Relationship: PCP - [address] [facility] [place] [address] Next Steps: Follow up in 1 week(s) Ebony Gipson MD Specialty: Gastroenterology [address] [facility] [address] Next Steps: Follow up in 1 month(s) [facility] Specialty: Fpc Facility [address] [facility] [address] [place] [address] Next Steps: Follow up Time Spent: 33 min Electronically signed by Vane Corley MD, 05/29/25, 3:35 PM EDT documented in this encounter Discharge Instructions * Attachments The following attachments cannot be sent through Care Everywhere. * Blood Transfusion Adult ([place]i) documented in this encounter Medications at Time [...] PM EDT Report called to Diann at [facility]. * Ravi Trent MD - 05/29/2025 1:30 [...] renal function - No emergent need of SENIOR SALES OPERATIONS MANAGER - Monitor H/H and transfuse for Hgb less than 7.0 - Low sodium diet and fluid restriction 1.5 lit/day Dispo: Patient to follow[facility]up with [facility] in [facility] outpatient after discharge in 1 month. Ravi [...] PM Result Value Ref Range Issue Date/Time [id number] Product Identification Red Blood Cells Product Code I5891L02 Status Information TRANSFUSED Unit Number [id number] Blood Type 5100 Cross Match Results Compatible [...] Range POC-GLUCOSE 110 70 - 110 mg/dL [employer] [id number] Glucose, Nova Meter Status: Abnormal Collection Time: 05/27/25 5:42 PM Result Value Ref Range POC-GLUCOSE 161 (H) 70 - 110 mg/dL [employer] [id number] Hemoglobin and hematocrit Status: Abnormal Collection Time: 05/27/25 10:34 PM Result Value Ref Range Hemoglobin 6.4 (LL) 11.2 - 15.7 GM/DL Hematocrit 19.7 (L) 34.1 - 44.9 % Prepare RBC: 1 Units Status: None Collection Time: 05/27/25 10:54 PM Result Value Ref Range Issue Date/Time [id number] Product Identification Red Blood Cells Product Code Y7831Y53 Status Information TRANSFUSED Unit Number [id number] Blood Type 5100 Cross Match Results Compatible Glucose, Nova Meter Status: None Collection Time: 05/28/25 12:09 AM Result Value Ref Range POC-GLUCOSE 92 70 - 110 mg/dL [employer]ker [id number] Glucose, Nova Meter Status: None Collection Time: 05/28/25 6:03 AM Result Value Ref Range POC-GLUCOSE 105 70 - 110 mg/dL C[employer]ker [id number] CBC - Hemogram (SJ-BKR) Status: Abnormal Collection [...] POC-GLUCOSE 191 (H) 70 - 110 mg/dL C[employer]ker [id number] IR REQUEST - MISCELLANEOUS Narrative: TUNNELED CATHETER REMOVAL PHYSICIAN HEALTH PLAN MANAGER: Chris Tipton PA-C. RADIOLOGIST: Hussein Mast M.D. [...] Potassium 5.3 this morning , will order Fast Asset monitor #chronic Kidney disease Gentle IV hydration [...] to feel better and return to her [facility]. Pain No - Patient not reporting pain at this time Cognition Patient is alert and oriented x 4. Home Living Patient is a resident of the prison, receives assist with her functional activities and [...] applicable Wheelchair Mobility Not applicable. Outcome Measures [facility] Basic Mobility Inpatient Short Form How [...] the original note were not included. [address] MEDICAL TELEMETRY UNIT Inpatient Occupational Therapy [...] body dressing:Maximal Assistance Toileting:Minimal Assistance Outcome Measures [facility] Daily Living Functional Assessment How [...] (Minimal/Contact guard/Supervision/Setup) 4=None (Modified independent/Independent) The patient's [facility] raw score is 19. The patient currently has 42.80% functional impairment. Clinicians are most likely to recommend inpatient/SNF/supervisor intermediates care for patients with scores between 6-17, [...] will likely be appropriate for inpatient rehab/SNF/ [facility] care post hospitalization. Plan Recommendations Discharge recommendations: [...] - MISCELLANEOUS Narrative: TUNNELED CATHETER REMOVAL PHYSICIAN HEALTH PLAN MANAGER: Chris Tipton PA-C. RADIOLOGIST: Hussein Mast M.D. [...] Ext: No Pedal edema , no cyanosis,PPP BALL POINT SPLITTER: Alert,Oriented. Cranial nerves intact, No focal deficit noted grossly. Psy: Cooperative,appropriate mood and affect Skin: Warm dry and pink Relevant Results: Results for orders placed or performed during the hospital encounter of 05/27/25 (from the past 24 hours) Prepare RBC: 1 Units Status: None Collection Time: 05/27/25 3:23 PM Result Value Ref Range Issue Date/Time [id number] Product Identification Red Blood Cells Product Code [id number] Status Information TRANSFUSED Unit Number [id number] Blood Type 5100 Cross Match Results Compatible [...] Range POC-GLUCOSE 110 70 - 110 mg/dL Cargo Broker [id number] Glucose, Nova Meter Status: Abnormal Collection Time: 05/27/25 5:42 PM Result Value Ref Range POC-GLUCOSE 161 (H) 70 - 110 mg/dL C[employer]ker [id number] Hemoglobin and hematocrit Status: Abnormal Collection Time: 05/27/25 10:34 PM Result Value Ref Range Hemoglobin 6.4 (LL) 11.2 - 15.7 GM/DL Hematocrit 19.7 (L) 34.1 - 44.9 % Prepare RBC: 1 Units Status: None Collection Time: 05/27/25 10:54 PM Result Value Ref Range Issue Date/Time [id number] Product Identification Red Blood Cells Product Code [id number] Status Information TRANSFUSED Unit Number [id number] Blood Type 5100 Cross Match Results Compatible Glucose, Nova Meter Status: None Collection Time: 05/28/25 12:09 AM Result Value Ref Range POC-GLUCOSE 92 70 - 110 mg/dL C[employer]ker [id number] Glucose, Nova Meter Status: None Collection Time: 05/28/25 6:03 AM Result Value Ref Range POC-GLUCOSE 105 70 - 110 mg/dL Cargo [employer]ker [id number] CBC - Hemogram (-BKR) Status: Abnormal Collection [...] renal function - No emergent need of SENIOR SALES OPERATIONS MANAGER - Monitor H/H and transfuse for Hgb [...] or rectal bleeding. She was hospitalized at [facility] 3 months ago with similar [...] nursing note reviewed. Exam conducted with a lead systems engineer present. Constitutional: General: She is not in [...] PM Result Value Ref Range Issue Date/Time [id number] Product Identification Red Blood Cells Product Code [id number] Status Information TRANSFUSED Unit Number [id number] Blood Type 5100 Cross Match Results Compatible [...] Range POC-GLUCOSE 110 70 - 110 mg/dL Cargo Broker [id number] Glucose, Nova Meter Status: Abnormal Collection Time: 05/27/25 5:42 PM Result Value Ref Range POC-GLUCOSE 161 (H) 70 - 110 mg/dL [employer]ker [id number] Assessment & Plan Principal Problem: GI bleeding [...] - 110 mg/dL 05/29/2025 10:[address] [facility] Comment: In the event of poor peripheral blood flow, venous or arterial blood should be used due to the potential of erroneous results. Notified Nurse RBV Cargo Broker [id number] 05/29/2025 10:[address] [facility] Blood WHOLE BLOOD / Unknown 05/29/2025 10:46 AM EDT 05/29/2025 10:[address] [facility] - 05/29/2025 10:47 AM EDT Cargo Broker ID is - [id number] Vane Corley MD POINT OF CARE TEST ORDERABLES Final Result [facility] [address] [phone] * (ABNORMAL) Glucose, Nova Meter (05/29/2025 4:53 AM EDT) POC-GLUCOSE 141(H) 70 - 110 mg/dL 05/29/2025 4:[address] [facility] Comment: In the event of poor peripheral blood flow, venous or arterial blood should be used due to the potential of erroneous results. Protocols Followed Notified Nurse RBV Cargo Broker [id number] 05/29/2025 4:[address] [facility] Blood WHOLE BLOOD / Unknown 05/29/2025 4:53 AM EDT 05/29/2025 4:[address] [facility] - 05/29/2025 4:54 AM EDT Cargo Broker ID is - [id number] us Vane Corley MD POINT OF CARE TEST ORDERABLES Final Result [facility] [address] [phone] * (ABNORMAL) Basic Metabolic Panel (05/29/2025 2:50 AM EDT) Sodium 143 136 - 145 meq/L 05/29/2025 3:[address] [facility] Potassium 4.6 3.4 - 5.1 meq/L 05/29/2025 3:[address] [facility] CO2 20(L) 22 - 29 meq/L 05/29/2025 3:[address] [facility] Chloride 113(H) 98 - 112 meq/L 05/29/2025 3:[address] [facility] Glucose 134(H) 82 - 115 mg/dL 05/29/2025 3:[address] [facility] BUN 83.4(H) 9.8 - 20.1 mg/dL 05/29/2025 3:[address] [facility] Creatinine 3.13(H) 0.57 - 1.11 mg/dL 05/29/2025 3:[address] [facility] BUN/Creatinine 27(H) 8 - 20 05/29/2025 3:[address] [facility] Calcium 8.7 8.4 - 10.2 mg/dL 05/29/2025 3:[address] [facility] Anion Gap 15(H) 4 - 12 05/29/2025 3:[address] [facility] eGFR (mL/min/1.73m2) 14(L) >=60 mL/min/1.7 3m2 05/29/2025 3:[address] [facility] Comment:ESTIMATED GFR IS NOT ACCURATE CREATININE CLEARANCE IN PREDICTING GLOMERULAR FILTRATION RATE. ESTIMATED GFR IS NOT APPLICABLE FOR DIALYSIS PATIENTS. Osmolality Calc 312.2 mOsm/kg 3:[address] [facility] Blood Venipuncture / Unknown 05/29/2025 2:50 AM EDT 05/29/2025 3:18 AM EDT us Vane Corley MD LAB BLOOD ORDERABLES Final Re sult [facility] [address] [phone] * (ABNORMAL) CBC with Automated Diff (05/29/2025 2:50 AM EDT) WBC 8.1 4.0 - 10.0 K/ L 05/29/2025 3:[address] [facility] RBC 2.66(L) 3.93 - 5.22 M/ L 05/29/2025 3:[address] [facility] Hemoglobin 8.0(L) 11.2 - 15.7 GM/DL 05/29/2025 3:[address] [facility] Hematocrit 25.6(L) 34.1 - 44.9 % 05/29/2025 3:[address] [facility] MCV 96(H) 79 - 95 fL 05/29/2025 3:[address] [facility] MCH 30.1 25.6 - 32.2 pg 05/29/2025 3:[address] [facility] MCHC 31.3(L) 32.2 - 35.5 GM/DL 05/29/2025 3:[address] [facility] RDW 18.7(H) 11.7 - 14.4 % 05/29/2025 3:[address] [facility] Platelets 215 140 - 375 K/CU MM 05/29/2025 3:[address] [facility] MPV 10.5 9.4 - 12.3 fL 05/29/2025 3:[address] [facility] % Neutros 71 34 - 71 % 05/29/2025 3:[address] [facility] % Lymphs 15(L) 19 - 52 % 05/29/2025 3:[address] [facility] % Monos 12 5 - 13 % 05/29/2025 3:[address] [facility] % Eos 2 1 - 6 % 05/29/2025 3:[address] [facility] % Baso 0 0 - 1 % 05/29/2025 3:[address] [facility] NRBC Absolute <0.01 0 - 0.012 K/ul 05/29/2025 3:[address] [facility] # Neutros 5.67 1.56 - 6.13 K/ L 05/29/2025 3:[address] [facility] # Lymphs 1.20 1.18 - 3.74 K/ L 05/29/2025 3:[address] [facility] # Monos 0.99(H) 0.24 - 0.86 K/ L 05/29/2025 3:[address] [facility] # Eos 0.13 0.04 - 0.36 K/ L 05/29/2025 3:[address] [facility] # Baso <0.03 0.01 - 0.08 K/ L 05/29/2025 3:[address] [facility] % Imm Grans 0.50(H) 0.01 - 0.43 % 05/29/2025 3:[address] [facility] # IG 0.04(H) 0.00 - 0.03 K/uL 05/29/2025 3:[address] [facility] Blood Venipuncture / Unknown 05/29/2025 2:50 AM EDT 05/29/2025 3:[address] [facility] - 05/29/2025 3:24 AM EDT [...] MD LAB BLOOD ORDERABLES Final Re sult [facility] 1 [place] [address], [facility] [phone] * (ABNORMAL) Glucose, Nova Meter (05/28/2025 11:29 PM EDT) POC-GLUCOSE 156(H) 70 - 110 mg/dL 05/28/2025 11:[address] [facility] Comment: In the event of poor peripheral blood flow, venous or arterial blood should be used due to the potential of erroneous results. Protocols Followed [employer]ker [id number] 05/28/2025 11:[address] [facility] Blood WHOLE BLOOD / Unknown 05/28/2025 11:29 PM EDT 05/28/2025 11:30 PM EDT [facility] - 05/28/2025 11:30 PM EDT Cargo Broker ID is - [id number] us Vane Corley MD POINT OF CARE TEST ORDERABLES Final Result [facility] [address] [place] [address], [facility] [phone] * (ABNORMAL) Glucose, Nova Meter (05/28/2025 7:41 PM EDT) POC-GLUCOSE 194(H) 70 - 110 mg/dL 05/28/2025 7:[address] [facility] Comment: In the event of poor peripheral blood flow, venous or arterial blood should be used due to the potential of erroneous results. Protocols Followed Notified Nurse RBV Cargo Broker [id number] 05/28/2025 7:[address] [facility] Blood WHOLE BLOOD / Unknown 05/28/2025 7:41 PM EDT 05/28/2025 7:43 PM EDT [facility] - 05/28/2025 7:43 PM EDT Cargo Broker ID is - [id number] us Osama Elsallabi MD POINT OF CARE TEST ORDERABLES Final Result [facility] [address] [phone] * Glucose, Nova Meter (05/28/2025 3:37 PM EDT) POC-GLUCOSE 99 70 - 110 mg/dL 05/28/2025 3:[address] [facility] Comment: In the event of poor peripheral blood flow, venous or arterial blood should be used due to the potential of erroneous results. Protocols Followed [employer] Broker [id number] 05/28/2025 3:[address] [facility] Blood WHOLE BLOOD / Unknown 05/28/2025 3:37 PM EDT 05/28/2025 3:[address] [facility] - 05/28/2025 3:39 PM EDT Cargo Broker ID is - [id number] us Vane Corley MD POINT OF CARE TEST ORDERABLES Final Result Performing Organization Address [facility]/ZIP Co de Phone Number [facility] [address] [phone] * Urea Nitrogen, random urine (05/28/2025 1:19 PM EDT) Urea Nitrogen, Ur 562 mg/dL 05/28/2025 1:[address] [facility] Comment: Reference Range not established Reference range not established Urine 05/28/2025 1:19 PM EDT 05/28/2025 1:21 PM EDT Pa Santos MD URINE ORDERABLES Final Result Performing Organization Address [facility]/ZIP Co de Phone Number [facility] [address] [phone] * (ABNORMAL) Protein / creatinine ratio, urine (05/28/2025 1:19 PM EDT) Creatinine, Ur 39.00(L) 47.00 - 110.00 mg/dL 05/28/2025 1:[address] [facility] Protein Creatinine Ratio 1.95(H) <=0.20 05/28/2025 1:[address] [facility] Protein, Urine 76(H) 1 - 14 mg/dL 05/28/2025 1:[address] [facility] Urine 05/28/2025 1:19 PM EDT 05/28/2025 1:21 PM EDT us Pa Santos MD URINE ORDERABLES Final Result Performing Organization Address [facility]/ZIP Co nm Phone Number [facility] [address] [phone] * Sodium, random urine (05/28/2025 1:19 PM EDT) Sodium Urine 56 See Comment meq/L 05/28/2025 1:[address] [facility] Comment:Reference Range not established Urine 05/28/2025 1:19 PM EDT 05/28/2025 1:21 PM EDT us Pa Santos MD URINE ORDERABLES Final Result Performing Organization Address [facility] Co nm Phone Number [facility] [address] [phone] * (ABNORMAL) Urinalysis w/Microscopic (05/28/2025 1:19 PM EDT) Color, UA Light Yellow 05/28/2025 1:[address] [facility] Clarity, UA Clear Clear 05/28/2025 1:[address] [facility] Specific [place], UA 1.012 1.005 - 1.030 05/28/2025 1:[address] [facility] pH, UA 5.5(L) 6.0 - 8.0 05/28/2025 1:[address] [facility] Leukocytes, UA Negative Negative 05/28/2025 1:[address] [facility] Nitrite, UA Negative Negative 05/28/2025 1:[address] [facility] Protein, UA 1+(A) Negative 05/28/2025 1:[address] [facility] Glucose, UA 4+(A) Normal 05/28/2025 1:[address] [facility] Ketones, UA Negative Negative 05/28/2025 1:[address] [facility] Urobilinogen, UA Normal Normal 05/28/2025 1:[address] [facility] Bilirubin, UA Negative Negative 05/28/2025 1:[address] [facility] Blood, UA Negative Negative 05/28/2025 1:[address] [facility] RBC, UA 0-2(A) None Seen /HPF 05/28/2025 1:[address] [facility] WBC, UA 0-2(A) None Seen /HPF 05/28/2025 1:[address] [facility] Bacteria, UA None Seen None Seen, Trace 05/28/2025 1:[address] [facility] SQUAMOUS EPITHELIAL 0-2(A) None Seen /HPF 05/28/2025 1:[address] [facility] Specimen Source Urine, Sterile Collection 05/28/2025 1:[address] [facility] Urine STERILE URINE SPECIMEN CONTAINER / Unknown 05/28/2025 1:19 PM EDT 05/28/2025 1:24 PM EDT Pa Santos MD URINE ORDERABLES Final Result [facility] [address] [phone] * (ABNORMAL) Glucose, Nova Meter (05/28/2025 10:43 AM EDT) POC-GLUCOSE 191(H) 70 - 110 mg/dL 05/28/2025 10:[address] [facility] Comment: In the event of poor peripheral blood flow, venous or arterial blood should be used due to the potential of erroneous results. Notified Nurse RBV Cargo Broker [id number] 05/28/2025 10:[address] [facility] Blood WHOLE BLOOD / Unknown 05/28/2025 10:43 AM EDT 05/28/2025 10:[address] [facility] - 05/28/2025 10:47 AM EDT Cargo Broker ID is - [id number] us Vane Corley MD POINT OF CARE TEST ORDERABLES Final Result Performing Organization Address [facility]/ZIP Co de Phone Number [facility] [address] [phone] * Magnesium (05/28/2025 6:26 AM EDT) Magnesium 1.8 1.6 - 2.6 mg/dL 05/28/2025 6:[address] [facility] Blood Venipuncture / Unknown 05/28/2025 6:26 AM EDT 05/28/2025 6:33 AM EDT Vane Corley MD LAB BLOOD ORDERABLES Final Re sult Performing Organization Address [facility]/ZIP Co de Phone Number [facility] [address] [phone] * Lactate dehydrogenase (LDH) (05/28/2025 6:26 AM EDT) LDH 165 125 - 220 U/L 05/28/2025 12:[address] [facility] Blood Venipuncture / Unknown 05/28/2025 6:26 AM EDT 05/28/2025 6:33 AM EDT us Pa Santos MD LAB BLOOD ORDERABLES Final Resu lt Performing Organization Address City/[facility]/ZIP Co de Phone Number [facility] [address] [phone] * Creatine Kinase (CK) (05/28/2025 6:26 AM EDT) Total CK 41 29 - 168 U/L 05/28/2025 12:[address] [facility] Blood Venipuncture / Unknown 05/28/2025 6:26 AM EDT 05/28/2025 6:33 AM EDT Pa Santos MD LAB BLOOD ORDERABLES Final Resu lt Performing Organization Address [facility]/ZIP Co de Phone Number [facility] [address] [phone] * (ABNORMAL) Uric acid (05/28/2025 6:26 AM EDT) [facility] Uric Acid 6.7(H) 2.5 - 6.2 mg/dL 05/28/2025 12:[address] [facility] Blood Venipuncture / Unknown 05/28/2025 6:26 AM EDT 05/28/2025 6:33 AM EDT Pa Santos MD LAB BLOOD ORDERABLES Final Resu lt Performing Organization Address [facility] Co de Phone Number [facility] [address] [phone] * (ABNORMAL) Basic Metabolic Panel (05/28/2025 6:26 AM EDT) Pathologist [facility] Sodium 142 136 - 145 meq/L 05/28/2025 6:[address] [facility] Potassium 5.3(H) 3.4 - 5.1 meq/L 05/28/2025 6:[address] [facility] CO2 18(L) 22 - 29 meq/L 05/28/2025 6:[address] [facility] Chloride 113(H) 98 - 112 meq/L 05/28/2025 6:[address] [facility] Glucose 106 82 - 115 mg/dL 05/28/2025 6:[address] [facility] BUN 94.0(H) 9.8 - 20.1 mg/dL 05/28/2025 6:[address] [facility] Creatinine 3.48(H) 0.57 - 1.11 mg/dL 05/28/2025 6:[address] [facility] BUN/Creatinine 27(H) 8 - 20 05/28/2025 6:[address] [facility] Calcium 9.2 8.4 - 10.2 mg/dL 05/28/2025 6:[address] [facility] Anion Gap 16(H) 4 - 12 05/28/2025 6:[address] [facility] eGFR (mL/min/1.73m2) 13(L) >=60 mL/min/1.7 3m2 05/28/2025 6:[address] [facility] Comment:ESTIMATED GFR IS NOT ACCURATE CREATININE CLEARANCE IN PREDICTING GLOMERULAR FILTRATION RATE. ESTIMATED GFR IS NOT APPLICABLE FOR DIALYSIS PATIENTS. Osmolality Calc 312.6 mOsm/kg 6:[address] [facility] Blood Venipuncture / Unknown 05/28/2025 6:26 AM EDT 05/28/2025 6:33 AM EDT us Vane Corley MD LAB BLOOD ORDERABLES Final Re sult [facility] [address] [phone] * (ABNORMAL) CBC - Hemogram (SJ-BKR) (05/28/2025 6:26 AM EDT) WBC 7.8 4.0 - 10.0 K/ L 05/28/2025 6:[address] [facility] RBC 2.59(L) 3.93 - 5.22 M/ L 05/28/2025 6:[address] [facility] Hemoglobin 7.9(L) 11.2 - 15.7 GM/DL 05/28/2025 6:[address] [facility] Hematocrit 24.7(L) 34.1 - 44.9 % 05/28/2025 6:[address] [facility] MCV 95 79 - 95 fL 05/28/2025 6:[address] [facility] MCH 30.5 25.6 - 32.2 pg 05/28/2025 6:[address] [facility] MCHC 32.0(L) 32.2 - 35.5 GM/DL 05/28/2025 6:[address] [facility] RDW 18.3(H) 11.7 - 14.4 % 05/28/2025 6:[address] [facility] Platelets 193 140 - 375 K/CU MM 05/28/2025 6:[address] [facility] MPV 10.7 9.4 - 12.3 fL 05/28/2025 6:[address] [facility] Blood Venipuncture / Unknown 05/28/2025 6:26 AM EDT 05/28/2025 6:33 AM EDT us Vane Corley MD LAB BLOOD ORDERABLES Final Re sult [facility] [address] [place] [address] * Glucose, Nova Meter (05/28/2025 6:03 AM EDT) [facility] Signature POC-GLUCOSE 105 70 - 110 mg/dL 05/28/2025 6:[address] [facility] Comment: In the event of poor peripheral blood flow, venous or arterial blood should be used due to the potential of erroneous results. Notified Nurse [employer] [phone] 05/28/2025 6:[address] [facility] Blood WHOLE BLOOD / Unknown 05/28/2025 6:03 AM EDT 05/28/2025 6:[address] [facility] - 05/28/2025 6:04 AM EDT Cargo Broker ID is - [id number] us Vane Corley MD POINT OF CARE TEST ORDERABLES Final Result [facility] [address] [phone] * Transfuse RBC (05/28/2025 5:09 AM EDT) Karlo Hercules PA-C FS_MODEL_IP_BLOOD TRANSFUSION ORDERABLES Final Result * Transfuse RBC: 1 Units (05/28/2025 5:09 AM EDT) Karlo Hercules PA-C FS_MODEL_IP_BLOOD TRANSFUSION ORDERABLES Final Result * Glucose, Nova Meter (05/28/2025 12:09 AM EDT) Pathologist [facility] POC-GLUCOSE 92 70 - 110 mg/dL 05/28/2025 12:[address] [facility] Comment: In the event of poor peripheral blood flow, venous or arterial blood should be used due to the potential of erroneous results. Notified Nurse RBV Cargo Broker [id number] 05/28/2025 12:[address] [facility] Blood WHOLE BLOOD / Unknown 05/28/2025 12:09 AM EDT 05/28/2025 12:[address] [facility] - 05/28/2025 12:10 AM EDT Cargo Broker ID is - [id number] us Vane Corley MD POINT OF CARE TEST ORDERABLES Final Result Performing Organization Address City/[facility]/ZIP Co de Phone Number [facility] [address] [phone] * Prepare RBC: 1 Units (05/27/2025 10:54 PM EDT) Pathologist [facility] Issue Date/Time [id number] [facility] [place] Product Identification Red Blood Cells [facility] [place]) Product Code [id number] [facility] [place] Status Information TRANSFUSED [facility] [place] Unit Number [id number] [facility] [place]) Blood Type 5100 [facility] [place]) Cross Match Results Compatible [facility] ([place]) us Karlo Hercules PA-C FS_MODEL_IP_BLOOD BANK PRODUCT ORDERABLES Final Result Performing Organization Address [facility]/ZIP Co de Phone Number [facility] ([place]) [address] [place] [address], [facility] [phone] * (ABNORMAL) Hemoglobin and hematocrit (05/27/2025 10:34 PM EDT) Hemoglobin 6.4(LL) 11.2 - 15.7 GM/DL 05/27/2025 10:[address] [facility] Hematocrit 19.7(L) 34.1 - 44.9 % 05/27/2025 10:[address] [facility] Blood Venipuncture / Unknown 05/27/2025 10:34 PM EDT 05/27/2025 10:38 PM EDT Vane Corley MD LAB BLOOD ORDERABLES Final Re sult [facility] [address] [place] [address], [facility] [phone] * Transfuse RBC (05/27/2025 8:55 PM EDT) Vane Corley MD FS_MODEL_IP_BLOOD TRANSFUSION ORDERABLES Final Result * Transfuse RBC: 1 Units (05/27/2025 8:55 PM EDT) us Vane Corley MD FS_MODEL_IP_BLOOD TRANSFUSION ORDERABLES Final Result * (ABNORMAL) Glucose, Nova Meter (05/27/2025 5:42 PM EDT) POC-GLUCOSE 161(H) 70 - 110 mg/dL 05/27/2025 5:[address] [facility] Comment: In the event of poor peripheral blood flow, venous or arterial blood should be used due to the potential of erroneous results. Notified Nurse RBV Cargo Broker [id number] 05/27/2025 5:[address] [facility] Blood WHOLE BLOOD / Unknown 05/27/2025 5:42 PM EDT 05/27/2025 5:[address] [facility] - 05/27/2025 5:43 PM EDT Cargo Broker ID is - [id number] Vane Corley MD POINT OF CARE TEST ORDERABLES Final Result Performing Organization Address [facility] Co de Phone Number [facility] [address] [phone] * Glucose, Nova Meter (05/27/2025 5:01 PM EDT) POC-GLUCOSE 110 70 - 110 mg/dL 05/27/2025 5:[address] [facility] Comment: In the event of poor peripheral blood flow, venous or arterial blood should be used due to the potential of erroneous results. Protocols Followed Cargo Broker [id number] 05/27/2025 5:[address] [facility] Blood WHOLE BLOOD / Unknown 05/27/2025 5:01 PM EDT 05/27/2025 5:[address] [facility] - 05/27/2025 5:02 PM EDT Cargo Broker ID is - [id number] us Vane Corley MD POINT OF CARE TEST ORDERABLES Final Result Performing Organization Address [facility]/ZIP Co de Phone Number [facility] [address] [place] [address], [facility] [phone] * Type and Screen (05/27/2025 3:48 PM EDT) ABO/Rh O Positive 05/27/2025 3:54 PM EDT [facility] [place]) Antibody Screen Negative 05/27/2025 3:54 PM EDT [facility] ([place]) HISTCHK HIST CHECK PERFORMED 05/27/2025 3:54 PM EDT [facility] ([place]) Blood Venipuncture / Unknown 05/27/2025 3:48 PM EDT 05/27/2025 3:54 PM EDT us Vane Corley MD [facility] TEST ORDERABLE S Final Result Performing Organization Address [facility]/ZIP Co de Phone Number [facility] ([place]) [address] [place] [address] * Ferritin (05/27/2025 3:47 PM EDT) Ferritin 115.24 4.63 - 204.00 ng/mL 05/27/2025 4:[address] [facility] Blood Venipuncture / Unknown 05/27/2025 3:47 PM EDT 05/27/2025 3:53 PM EDT us Vane Corley MD LAB BLOOD ORDERABLES Final Re sult Performing Organization Address City/[facility]/ZIP Co de Phone Number [facility] [address] [phone] * (ABNORMAL) Iron and TIBC (05/27/2025 3:47 PM EDT) Iron 74 50 - 170 ug/dL 05/27/2025 4:[address] [facility] TIBC 203(L) 250 - 435 ug/dL 05/27/2025 4:[address] [facility] % Saturation 36 % 05/27/2025 4:[address] [facility] UIBC 129 05/27/2025 4:[address] [facility] Blood Venipuncture / Unknown 05/27/2025 3:47 PM EDT 05/27/2025 3:53 PM EDT us Vane Corley MD LAB BLOOD ORDERABLES Final Re sult Performing Organization Address City/[facility]/ZIP Co de Phone Number [facility] [address] [phone] * (ABNORMAL) Basic Metabolic Panel (05/27/2025 3:47 PM EDT) Sodium 141 136 - 145 meq/L 05/27/2025 4:[address] [facility] Potassium 5.9(H) 3.4 - 5.1 meq/L 05/27/2025 4:[address] [facility] CO2 17(L) 22 - 29 meq/L 05/27/2025 4:[address] [facility] Chloride 112 98 - 112 meq/L 05/27/2025 4:[address] [facility] Glucose 123(H) 82 - 115 mg/dL 05/27/2025 4:[address] [facility] BUN 103.5(H) 9.8 - 20.1 mg/dL 05/27/2025 4:[address] [facility] Creatinine 3.44(H) 0.57 - 1.11 mg/dL 05/27/2025 4:[address] [facility] BUN/Creatinine 30(H) 8 - 20 05/27/2025 4:[address] [facility] Calcium 9.7 8.4 - 10.2 mg/dL 05/27/2025 4:[address] [facility] Anion Gap 18(H) 4 - 12 05/27/2025 4:[address] [facility] eGFR (mL/min/1.73m2) 13(L) >=60 mL/min/1.7 3m2 05/27/2025 4:[address] [facility] Comment:ESTIMATED GFR IS NOT ACCURATE CREATININE CLEARANCE IN PREDICTING GLOMERULAR FILTRATION RATE. ESTIMATED GFR IS NOT APPLICABLE FOR DIALYSIS PATIENTS. Osmolality Calc 315.1 mOsm/kg 4:[address] [facility] Blood Venipuncture / Unknown 05/27/2025 3:47 PM EDT 05/27/2025 3:53 PM EDT Vane Corley MD LAB BLOOD ORDERABLES Final Re sult [facility] [address] [phone] * (ABNORMAL) CBC with automated diff (05/27/2025 3:47 PM EDT) WBC 10.4(H) 4.0 - 10.0 K/ L 05/27/2025 3:[address] [facility] RBC 1.65(L) 3.93 - 5.22 M/ L 05/27/2025 3:[address] [facility] Hemoglobin 5.3(LL) 11.2 - 15.7 GM/DL 05/27/2025 3:[address] [facility] Hematocrit 16.9(L) 34.1 - 44.9 % 05/27/2025 3:[address] [facility] MCV 102(H) 79 - 95 fL 05/27/2025 3:[address] [facility] MCH 32.1 25.6 - 32.2 pg 05/27/2025 3:[address] [facility] MCHC 31.4(L) 32.2 - 35.5 GM/DL 05/27/2025 3:[address] [facility] RDW 17.2(H) 11.7 - 14.4 % 05/27/2025 3:[address] [facility] Platelets 219 140 - 375 K/CU MM 05/27/2025 3:[address] [facility] MPV 10.6 9.4 - 12.3 fL 05/27/2025 3:[address] [facility] % Neutros 72(H) 34 - 71 % 05/27/2025 3:[address] [facility] % Lymphs 15(L) 19 - 52 % 05/27/2025 3:[address] [facility] % Monos 12 5 - 13 % 05/27/2025 3:[address] [facility] % Eos 0(L) 1 - 6 % 05/27/2025 3:[address] [facility] % Baso 0 0 - 1 % 05/27/2025 3:[address] [facility] NRBC Absolute <0.01 0 - 0.012 K/ul 05/27/2025 3:[address] [facility] # Neutros 7.49(H) 1.56 - 6.13 K/ L 05/27/2025 3:[address] [facility] # Lymphs 1.55 1.18 - 3.74 K/ L 05/27/2025 3:[address] [facility] # Monos 1.19(H) 0.24 - 0.86 K/ L 05/27/2025 3:[address] [facility] # Eos 0.04 0.04 - 0.36 K/ L 05/27/2025 3:[address] [facility] # Baso <0.03 0.01 - 0.08 K/ L 05/27/2025 3:[address] [facility] % Imm Grans 0.80(H) 0.01 - 0.43 % 05/27/2025 3:[address] [facility] # IG 0.08(H) 0.00 - 0.03 K/uL 05/27/2025 3:[address] [facility] Blood Venipuncture / Unknown 05/27/2025 3:47 PM EDT 05/27/2025 3:[address] [facility] - 05/27/2025 3:57 PM EDT [...] MD LAB BLOOD ORDERABLES Final Re sult [facility] [address] [phone] * Prepare RBC: 1 Units (05/27/2025 3:23 PM EDT) Issue Date/Time [id number] [facility] ([place]) Product Identification Red Blood Cells [facility] [place]) Product Code [id number] [facility] [place]) Status Information TRANSFUSED [facility] [place]) Unit Number [id number] [facility] ([place]) Blood Type 5100 [facility] ([place]) Cross Match Results Compatible [facility] ([place]) us Vane Corley MD FS_MODEL_IP_BLOOD BANK PRODUC T ORDERABLES Final Result [facility] ([place]) 1 [facility] [place] [id number], [facility] [phone] documented in this encounter Visit Diagnoses Diagnosis [...] blood sugar is less than 180 between 8279-6902, DO NOT give corrective insulin unless otherwise [...] blood sugar is less than 180 between 6965-0760, DO NOT give corrective insulin unless otherwise [...] flush documented in this encounter Care Teams Tax Collection Coordinator Relationship Specialty Start Date End Date Anand Noble MD [address] [facility] [place] [phone] PCP - General Family Medicine 07/29/23 documented as of this encounter
--- OUTSIDE RECORDS SUMMARY | 2025-06-08 09:02 | XMS_ITS | Encounter Summary ---
Author Organization [employer] ([place], [place], [place], [place]) Address [address] [place] [address] Care Team Providers Care Non Destructive Testing Supervisor Name Role Phone Anand Noble MD [...] Date Juan rded Speak language other than [place] at home Not on file 09/01/2023 Want [...] on filedocumented in this encounter Care Teams Non Destructive Testing Supervisor Relationship Specialty Start Date End Date Anand Noble MD [address] [place] [phone] PCP - General Family Medicine 07/29/23 documented as of this encounter
--- OUTSIDE RECORDS SUMMARY | 2025-06-08 09:03 | XMS_ITS | Referral Summary ---
Author Organization [facility] ([place], [place], [place], [place]) Address [address] [place] [address] Care Team Providers Care Lockstitch Topstitcher Name Role Phone Anand Noble MD Primary Care Provider Encounters Date Type Department Care Team Description 05/27/2025 3:02 PM EDT - 05/29/2025 4:43 PM EDT Hospital Encounter [address] Medical Telemetry Unit 1 [place] [address] Alan Vargas DO Elsallabi, Osama, [...] both eyes 4 (four) times daily. Active ferrous gluconate (FERGON) 324 MG tablet [...] 15 mg 9 tablet 025 2024 Active Problems Problem Noted Date Diagnosed Date [...] Date Juan rded Speak language other than Mosotho at home Not on file 09/01/2023 Want [...] of10 resultswithin the time period is included. POC-GLUCOSE 183(H) 70 - 110 mg/dL 05/29/2025 10:47 AM EDT [facility] Comment: In the event of poor peripheral blood flow, venous or arterial blood should be used due to the potential of erroneous results. Notified Nurse RBV Blow Pit Operator [phone] 05/29/2025 10:47 AM EDT [facility] Blood WHOLE BLOOD / Unknown 05/29/2025 10:46 AM EDT 05/29/2025 10:47 AM EDT Narrative [facility] - 05/29/2025 10:47 AM EDT Blow Pit Operator ID is - [id number] Vane Corley MD POINT OF CARE TEST ORDERABLES Final Result [facility] 1 [place], [place] [address] [phone] * (ABNORMAL) CBC with Automated Diff (05/29/2025 2:50 AM EDT) Only the most recent of2 resultswithin the time period is included. WBC 8.1 4.0 - 10.0 K/ L 05/29/2025 3:24 AM EDT [facility] RBC 2.66(L) 3.93 - 5.22 M/ L 05/29/2025 3:24 AM EDT [facility] Hemoglobin 8.0(L) 11.2 - 15.7 GM/DL 05/29/2025 3:24 AM EDT [facility] Hematocrit 25.6(L) 34.1 - 44.9 % 05/29/2025 3:24 AM EDT [facility] MCV 96(H) 79 - 95 fL 05/29/2025 3:24 AM EDT [facility] MCH 30.1 25.6 - 32.2 pg 05/29/2025 3:24 AM EDT [facility] MCHC 31.3(L) 32.2 - 35.5 GM/DL 05/29/2025 3:24 AM EDT [facility] RDW 18.7(H) 11.7 - 14.4 % 05/29/2025 3:24 AM EDT [facility] Platelets 215 140 - 375 K/CU MM 05/29/2025 3:24 AM EDT [facility] MPV 10.5 9.4 - 12.3 fL 05/29/2025 3:24 AM EDT [facility] % Neutros 71 34 - 71 % 05/29/2025 3:24 AM EDT [facility] % Lymphs 15(L) 19 - 52 % 05/29/2025 3:24 AM EDT [facility] % Monos 12 5 - 13 % 05/29/2025 3:24 AM EDT [facility] % Eos 2 1 - 6 % 05/29/2025 3:24 AM EDT [facility] % Baso 0 0 - 1 % 05/29/2025 3:24 AM EDT [facility] NRBC Absolute <0.01 0 - 0.012 K/ul 05/29/2025 3:24 AM EDT [facility] # Neutros 5.67 1.56 - 6.13 K/ L 05/29/2025 3:24 AM EDT [facility] # Lymphs 1.20 1.18 - 3.74 K/ L 05/29/2025 3:24 AM EDT [facility] # Monos 0.99(H) 0.24 - 0.86 K/ L 05/29/2025 3:24 AM EDT [facility] # Eos 0.13 0.04 - 0.36 K/ L 05/29/2025 3:24 AM EDT [facility] # Baso <0.03 0.01 - 0.08 K/ L 05/29/2025 3:24 AM EDT [facility] % Imm Grans 0.50(H) 0.01 - 0.43 % 05/29/2025 3:24 AM EDT [facility] # IG 0.04(H) 0.00 - 0.03 K/uL 05/29/2025 3:24 AM EDT [facility] Blood Venipuncture / Unknown 05/29/2025 2:50 AM EDT 05/29/2025 3:17 AM EDT Narrative [facility] - 05/29/2025 3:24 AM EDT When [...] LAB BLOOD ORDERABLES Final Re sult [facility] [address] [phone] * (ABNORMAL) Basic Metabolic Panel (05/29/2025 2:50 AM EDT) Only the most recent of3 resultswithin the time period is included. Sodium 143 136 - 145 meq/L 05/29/2025 3:48 AM EDT [facility] Potassium 4.6 3.4 - 5.1 meq/L 05/29/2025 3:48 AM EDT [facility] CO2 20(L) 22 - 29 meq/L 05/29/2025 3:48 AM EDT [facility] Chloride 113(H) 98 - 112 meq/L 05/29/2025 3:48 AM EDT [facility] Glucose 134(H) 82 - 115 mg/dL 05/29/2025 3:48 AM EDT [facility] BUN 83.4(H) 9.8 - 20.1 mg/dL 05/29/2025 3:48 AM EDT [facility] Creatinine 3.13(H) 0.57 - 1.11 mg/dL 05/29/2025 3:48 AM EDT [facility] BUN/Creatinine 27(H) 8 - 20 05/29/2025 3:48 AM EDT [facility] Calcium 8.7 8.4 - 10.2 mg/dL 05/29/2025 3:48 AM EDT [facility] Anion Gap 15(H) 4 - 12 05/29/2025 3:48 AM EDT [facility] eGFR (mL/min/1.73m2) 14(L) >=60 mL/min/1.7 3m2 05/29/2025 3:48 AM EDT [facility] Comment:ESTIMATED GFR IS NOT ACCURATE CREATININE CLEARANCE IN PREDICTING GLOMERULAR FILTRATION RATE. ESTIMATED GFR IS NOT APPLICABLE FOR DIALYSIS PATIENTS. Osmolality Calc 312.2 mOsm/kg 3:48 AM EDT [facility] Blood Venipuncture / Unknown 05/29/2025 2:50 AM EDT 05/29/2025 3:18 AM EDT us Vane Corley MD LAB BLOOD ORDERABLES Final Re sult [facility] 1 [place] [id number], [facility] [phone] * Urea Nitrogen, random urine (05/28/2025 1:19 PM EDT) Urea Nitrogen, Ur 562 mg/dL 05/28/2025 1:45 PM EDT [facility] Comment: Reference Range not established Reference range not established Urine 05/28/2025 1:19 PM EDT 05/28/2025 1:21 PM EDT us Pa Santos MD URINE ORDERABLES Final Result Performing Organization Address [facility]/ZIP Co de Phone Number [facility] [address] [phone] * (ABNORMAL) Protein / creatinine ratio, urine (05/28/2025 1:19 PM EDT) Creatinine, Ur 39.00(L) 47.00 - 110.00 mg/dL 05/28/2025 1:45 PM EDT [facility] Protein Creatinine Ratio 1.95(H) <=0.20 05/28/2025 1:45 PM EDT [facility] Protein, Urine 76(H) 1 - 14 mg/dL 05/28/2025 1:45 PM EDT [facility] Urine 05/28/2025 1:19 PM EDT 05/28/2025 1:21 PM EDT us Pa Santos MD URINE ORDERABLES Final Result Performing Organization Address [facility] Co de Phone Number [facility] [address] [phone] * Sodium, random urine (05/28/2025 1:19 PM EDT) Sodium Urine 56 See Comment meq/L 05/28/2025 1:45 PM EDT [facility] Comment:Reference Range not established Urine 05/28/2025 1:19 PM EDT 05/28/2025 1:21 PM EDT us Pa Santos MD URINE ORDERABLES Final Result Performing Organization Address City/[facility]/ZIP Co de Phone Number [facility] [address] [phone] * (ABNORMAL) Urinalysis w/Microscopic (05/28/2025 1:19 PM EDT) Color, UA Light Yellow 05/28/2025 1:29 PM EDT [facility] Clarity, UA Clear Clear 05/28/2025 1:29 PM EDT [facility] Specific [place], UA 1.012 1.005 - 1.030 05/28/2025 1:29 PM EDT [facility] pH, UA 5.5(L) 6.0 - 8.0 05/28/2025 1:29 PM EDT [facility] Leukocytes, UA Negative Negative 05/28/2025 1:29 PM EDT [facility] Nitrite, UA Negative Negative 05/28/2025 [facility] Protein, UA 1+(A) Negative 05/28/2025 1:29 PM EDT [facility] Glucose, UA 4+(A) Normal 05/28/2025 1:29 PM EDT [facility] Ketones, UA Negative Negative 05/28/2025 1:29 PM EDT [facility] Urobilinogen, UA Normal Normal 05/28/2025 1:29 PM EDT [facility] Bilirubin, UA Negative Negative 05/28/2025 1:29 PM EDT [facility] Blood, UA Negative Negative 05/28/2025 1:29 PM EDT [facility] RBC, UA 0-2(A) None Seen /HPF 05/28/2025 1:29 PM EDT [facility] WBC, UA 0-2(A) None Seen /HPF 05/28/2025 1:29 PM [facility] Bacteria, UA None Seen None Seen, Trace 05/28/2025 1:29 PM [facility] SQUAMOUS EPITHELIAL 0-2(A) None Seen /HPF 05/28/2025 1:29 PM [facility] Specimen Source Urine, Sterile Collection 05/28/2025 1:29 PM [facility] Urine STERILE URINE SPECIMEN CONTAINER / Unknown 05/28/2025 1:19 PM EDT 05/28/2025 1:24 PM EDT us Pa Santos MD URINE ORDERABLES Final Result [facility] [address] [phone] * (ABNORMAL) CBC - Hemogram (SJ-BKR) (05/28/2025 6:26 AM EDT) WBC 7.8 4.0 - 10.0 K/ L 05/28/2025 6:43 AM EDT [facility] RBC 2.59(L) 3.93 - 5.22 M/ L 05/28/2025 6:43 AM EDT [facility] Hemoglobin 7.9(L) 11.2 - 15.7 GM/DL 05/28/2025 6:43 AM EDT [facility] Hematocrit 24.7(L) 34.1 - 44.9 % 05/28/2025 6:43 AM EDT [facility] MCV 95 79 - 95 fL 05/28/2025 6:43 AM EDT [facility] MCH 30.5 25.6 - 32.2 pg 05/28/2025 6:43 AM EDT [facility] MCHC 32.0(L) 32.2 - 35.5 GM/DL 05/28/2025 6:43 AM EDT [facility] RDW 18.3(H) 11.7 - 14.4 % 05/28/2025 6:43 AM EDT [facility] Platelets 193 140 - 375 K/CU MM 05/28/2025 6:43 AM EDT [facility] MPV 10.7 9.4 - 12.3 fL 05/28/2025 6:43 AM EDT [facility] Blood Venipuncture / Unknown 05/28/2025 6:26 AM EDT 05/28/2025 6:33 AM EDT us Vane Corley MD LAB BLOOD ORDERABLES Final Re sult [facility] [address] [phone] * (ABNORMAL) Uric acid (05/28/2025 6:26 AM EDT) Uric Acid 6.7(H) 2.5 - 6.2 mg/dL 05/28/2025 12:09 PM EDT [facility] Blood Venipuncture / Unknown 05/28/2025 6:26 AM EDT 05/28/2025 6:33 AM EDT us Pa Santos MD LAB BLOOD ORDERABLES Final Resu lt Performing Organization Address [facility] Co de Phone Number [facility] [address] [phone] * Magnesium (05/28/2025 6:26 AM EDT) Magnesium 1.8 1.6 - 2.6 mg/dL 05/28/2025 6:38 PM EDT [facility] Blood Venipuncture / Unknown 05/28/2025 6:26 AM EDT 05/28/2025 6:33 AM EDT us Vane Corley MD LAB BLOOD ORDERABLES Final Re sult Performing Organization Address [facility]/ZIP Co de Phone Number [facility] [address] [phone] * Lactate dehydrogenase (LDH) (05/28/2025 6:26 AM EDT) LDH 165 125 - 220 U/L 05/28/2025 12:09 PM EDT [facility] Blood Venipuncture / Unknown 05/28/2025 6:26 AM EDT 05/28/2025 6:33 AM EDT us Pa Santos MD LAB BLOOD ORDERABLES Final Resu lt Performing Organization Address City/[facility]/ZIP Co de Phone Number [facility] [address] [phone] * Creatine Kinase (CK) (05/28/2025 6:26 AM EDT) Total CK 41 29 - 168 U/L 05/28/2025 12:09 PM EDT [facility] Blood Venipuncture / Unknown 05/28/2025 6:26 AM EDT 05/28/2025 6:33 AM EDT Pa Santos MD LAB BLOOD ORDERABLES Final Resu lt Performing Organization Address [facility] Co de Phone Number [facility] [address] [phone] * Transfuse RBC (05/28/2025 5:09 AM EDT) Only the most recent of2 resultswithin the time period is included. Karlo Hercules PA-C FS_MODEL_IP_BLOOD TRANSFUSION ORDERABLES Final Result * Prepare RBC: 1 Units (05/27/2025 10:54 PM EDT) Only the most recent of2 resultswithin the time period is included. Issue Date/Time [id number] [facility] [place] Product Identification Red Blood Cells [facility] [place]) Product Code [id number] [facility] [place] Status Information TRANSFUSED [facility] [place] Unit Number [id number] [facility] [place]) Blood Type 5100 [facility] [place] Cross Match Results Compatible [facility] ([place] us Karlo Hercules PA-C FS_MODEL_IP_BLOOD BANK PRODUCT ORDERABLES Final Result Performing Organization Address [facility] Co de Phone Number [facility] [place] [address] [place] [address], [facility] [phone] * (ABNORMAL) Hemoglobin and hematocrit (05/27/2025 10:34 PM EDT) Hemoglobin 6.4(LL) 11.2 - 15.7 GM/DL 05/27/2025 10:42 PM EDT [facility] Hematocrit 19.7(L) 34.1 - 44.9 % 05/27/2025 10:42 PM EDT [facility] Blood Venipuncture / Unknown 05/27/2025 10:34 PM EDT 05/27/2025 10:38 PM EDT us Vane Corley MD LAB BLOOD ORDERABLES Final Re sult Performing Organization Address City/[facility]/ZIP Co de Phone Number [facility] [address] [phone] * Type and Screen (05/27/2025 3:48 PM EDT) ABO/Rh O Positive 05/27/2025 3:54 PM EDT [facility] [place] Antibody Screen Negative 05/27/2025 3:54 PM EDT [facility] BLOOD [facility] ([place] HISTCHK HIST CHECK PERFORMED 05/27/2025 3:54 PM EDT [facility] [place] Blood Venipuncture / Unknown 05/27/2025 3:48 PM EDT 05/27/2025 3:54 PM EDT us Vane Corley MD [facility] TEST ORDERABLE S Final Result [facility] [place]) [address] [place] [address], [facility] [phone] * (ABNORMAL) Iron and TIBC (05/27/2025 3:47 PM EDT) Iron 74 50 - 170 ug/dL 05/27/2025 4:30 PM EDT [facility] TIBC 203(L) 250 - 435 ug/dL 05/27/2025 4:30 PM EDT [facility] % Saturation 36 % 05/27/2025 4:30 PM EDT [facility] UIBC 129 05/27/2025 4:30 PM EDT [facility] Blood Venipuncture / Unknown 05/27/2025 3:47 PM EDT 05/27/2025 3:53 PM EDT us Vane Corley MD LAB BLOOD ORDERABLES Final Re sult Performing Organization Address City/[facility]/ZIP Co de Phone Number [facility] [address] [phone] * Ferritin (05/27/2025 3:47 PM EDT) Ferritin 115.24 4.63 - 204.00 ng/mL 05/27/2025 4:30 PM EDT [facility] Blood Venipuncture / Unknown 05/27/2025 3:47 PM EDT 05/27/2025 3:53 PM EDT us Vane Corley MD LAB BLOOD ORDERABLES Final Re sult Performing Organization Address City/[facility] Co de Phone Number [facility] [address] [phone] from Last 3 Months Insurance MEDICARE PPO Advance Directives For more information, please contact: [phone] * Full Code (Latest Code Status on File) Date Activated Date Inactivated Comments 05/27/2025 2:15 PM 05/29/2025 5:45 PM * Full Code Date Activated Date Inactivated Comments 07/25/2023 6:51 AM 08/24/2023 6:19 PM Care Teams Lockstitch Topstitcher Relationship Specialty Start Date End Date Anand Noble MD [address] [place] [phone] PCP - General Family Medicine 07/29/23
--- OUTSIDE RECORDS SUMMARY | 2025-06-08 09:04 | XMS_ITS | Patient Health Record ---
Author Organization [id number] [facility] Address [address] [place], [place] [id number] Support Name Relationship Address Phone Lyssa Higgins Guarantor Unknown [phone] Reason For Referral No Information Plan Of Treatment No Information Insurance Providers Payer Name Payer Address Payer Phone Subscriber Number Group Number Insured Name Patient Relationship to Insured Coverage Start Date Coverage End Date [employer] PPO MEDICARE [address] [address] [place], [place] [id number] [phone] [id number] Lyssa Higgins Self - patient is the insured 3
--- OUTSIDE RECORDS SUMMARY | 2025-06-08 09:04 | XMS_ITS | Clinical Summary ---
Author Organization [email or web address] ([place], [place], [place], [place]) Address [address] [place] [address] Care Team Providers Care [employer] Name Role Phone Anand Noble MD Primary [...] - 05/29/2025 4:43 PM EDT Hospital Encounter [address] Medical Telemetry Unit [address] [place] [address] Alan Vargas DO Elsallabi, Osama, MD Discharge Disposition: Prison Facility 05/27/2025 Travel from Last 3 Months [...] Date Juan rded Speak language other than Chinese at home Not on file 09/01/2023 Want [...] resultswithin the time period is included. Pathologist [facility] POC-GLUCOSE 183(H) 70 - 110 mg/dL 05/29/2025 10:47 AM EDT [facility] Comment: In the event of poor peripheral blood flow, venous or arterial blood should be used due to the potential of erroneous results. Notified Nurse [facility]BV Flight Attendant/Inflight Manager [id number] 05/29/2025 10:47 AM EDT [facility] Blood WHOLE BLOOD / Unknown 05/29/2025 10:46 AM EDT 05/29/2025 10:47 AM EDT Narrative [facility] - 05/29/2025 10:47 AM EDT Flight Attendant/Inflight Manager ID is - [id number] Vane Corley MD POINT OF CARE TEST ORDERABLES Final Result [facility] [address] [phone] * (ABNORMAL) CBC with Automated Diff (05/29/2025 2:50 AM EDT) Only the most recent of2 resultswithin the time period is included. [facility] WBC 8.1 4.0 - 10.0 K/ L [...] 3:24 AM EDT [facility] % Imm Grans 0.50(H) 0.01 [...] Final Re sult [facility] [address] [phone] * (ABNORMAL) Basic Metabolic Panel (05/29/2025 2:50 [...] ORDERABLES Final Re sult Performing Organization Address [facility]/ZIP Co de Phone Number [facility] [address] [phone] * Urea Nitrogen, random urine (05/28/2025 1:19 PM EDT) Urea Nitrogen, Ur 562 mg/dL 05/28/2025 1:45 PM EDT [facility] Comment: Reference Range not established Reference range not established Urine 05/28/2025 1:19 PM EDT 05/28/2025 1:21 PM EDT us Pa Santos MD URINE ORDERABLES Final Result Performing Organization Address [facility]/ZIP Co de Phone Number [facility] [address] [phone] * (ABNORMAL) Protein / creatinine ratio, urine [...] URINE ORDERABLES Final Result Performing Organization Address [facility]/ZIP Co de Phone Number [facility] [address] [phone] * Sodium, random urine (05/28/2025 1:19 PM EDT) Sodium Urine 56 See Comment meq/L 05/28/2025 1:45 PM EDT [facility] Comment:Reference Range not established Urine 05/28/2025 1:19 PM EDT 05/28/2025 1:21 PM EDT Pa Santos MD URINE ORDERABLES Final Result Performing Organization Address [facility] Co de Phone Number [facility] [address] [phone] * (ABNORMAL) Urinalysis w/Microscopic (05/28/2025 1:19 PM EDT) Color, UA Light Yellow 05/28/2025 1:29 PM EDT [facility] Clarity, UA Clear Clear 05/28/2025 1:29 PM EDT [facility] Specific [place], UA 1.012 1.005 - 1.030 05/28/2025 1:29 [...] URINE ORDERABLES Final Result Performing Organization Address City/State/[facility] Co de Phone Number [facility] [address] [phone] * (ABNORMAL) CBC - Hemogram (SJ-BKR) (05/28/2025 [...] ORDERABLES Final Re sult Performing Organization Address City/[facility]/ZIP Co de Phone Number [facility] [address] [phone] * (ABNORMAL) Uric acid (05/28/2025 6:26 AM EDT) Uric Acid 6.7(H) 2.5 - 6.2 mg/dL 05/28/2025 12:09 PM EDT [facility] Blood Venipuncture / Unknown 05/28/2025 6:26 AM EDT 05/28/2025 6:33 AM EDT us Pa Santos MD LAB BLOOD ORDERABLES Final Resu lt [facility] [address] [phone] * Magnesium (05/28/2025 6:26 AM EDT) Magnesium 1.8 1.6 - 2.6 mg/dL 05/28/2025 6:38 PM EDT [facility] Blood Venipuncture / Unknown 05/28/2025 6:26 AM EDT 05/28/2025 6:33 AM EDT us Vane Corley MD LAB BLOOD ORDERABLES Final Re sult [facility] [address] [phone] * Lactate dehydrogenase (LDH) (05/28/2025 6:26 AM EDT) LDH 165 125 - 220 U/L 05/28/2025 12:09 PM EDT [facility] Blood Venipuncture / Unknown 05/28/2025 6:26 AM EDT 05/28/2025 6:33 AM EDT us Pa Santos MD LAB BLOOD ORDERABLES Final Resu lt Performing Organization Address [facility]/ZIP Co de Phone Number [facility] [address] [phone] * Creatine Kinase (CK) (05/28/2025 6:26 AM EDT) Total CK 41 29 - 168 U/L 05/28/2025 12:09 PM EDT [facility] Blood Venipuncture / Unknown 05/28/2025 6:26 AM EDT 05/28/2025 6:33 AM EDT us Pa Santos MD LAB BLOOD ORDERABLES Final Resu lt Performing Organization Address [facility] Co de Phone Number [facility] [address] [phone] * Transfuse RBC (05/28/2025 5:09 AM EDT) Only the most recent of2 resultswithin the time period is included. Karlo Hercules PA-C FS_MODEL_IP_BLOOD TRANSFUSION ORDERABLES Final Result * Prepare RBC: 1 Units (05/27/2025 10:54 PM EDT) Only the most recent of2 resultswithin the time period is included. Pathologist [facility] Issue Date/Time [id number] [facility] [place] ([place]) Product Identification Red Blood Cells [facility] ([place] Product Code [id number] [facility] [place] Status Information TRANSFUSED [facility] [place] Unit Number [id number] [facility] [place] ([place]) Blood Type 5100 [facility] [place] Cross Match Results Compatible [facility] [place] Karlo Hercules PA-C FS_MODEL_IP_BLOOD BANK PRODUCT ORDERABLES Final Result Performing Organization Address City/[facility]/ZIP Co de Phone Number [facility] ([place]) [address] [phone] * (ABNORMAL) Hemoglobin and hematocrit (05/27/2025 10:34 PM EDT) [facility] Hemoglobin 6.4(LL) 11.2 - 15.7 GM/DL 05/27/2025 10:42 PM EDT [facility] Hematocrit 19.7(L) 34.1 - 44.9 % 05/27/2025 10:42 PM EDT [facility] Blood Venipuncture / Unknown 05/27/2025 10:34 PM EDT 05/27/2025 10:38 PM EDT Vane Corley MD LAB BLOOD ORDERABLES Final Re sult [facility] [address] [phone] * Type and Screen (05/27/2025 3:48 PM EDT) [facility] ABO/Rh O Positive 05/27/2025 3:54 PM EDT [facility] ([place]) Antibody Screen Negative 05/27/2025 3:54 PM EDT [facility] ([place]) HISTCHK HIST CHECK PERFORMED 05/27/2025 3:54 PM EDT [facility] ([place]) Blood Venipuncture / Unknown 05/27/2025 3:48 PM EDT 05/27/2025 3:54 PM EDT us Vane Corley MD [facility] BLOOD BANK TEST ORDERABLE S Final Result [facility] ([place]) 1 [place] [address], [facility] [phone] * (ABNORMAL) Iron and TIBC (05/27/2025 3:47 [...] Final Re sult [facility] 1 [place] [address], [facility] [phone] * Ferritin (05/27/2025 3:47 PM EDT) Ferritin 115.24 4.63 - 204.00 ng/mL 05/27/2025 4:30 PM EDT [facility] Blood Venipuncture / Unknown 05/27/2025 3:47 PM EDT 05/27/2025 3:53 PM EDT us Vane Corley MD LAB BLOOD ORDERABLES Final Re sult [facility] 1 [place] [address], [facility] [phone] from Last 3 Months Insurance [employer] MEDICARE PPO Advance Directives For more information, please contact: [phone] * Full Code (Latest Code Status on File) Date Activated Date Inactivated Comments 05/27/2025 2:15 PM 05/29/2025 5:45 PM * Full Code Date Activated Date Inactivated Comments 07/25/2023 6:51 AM 08/24/2023 6:19 PM Care Teams [employer] Relationship Specialty Start Date End Date Anand Noble MD [address] [place] [address] PCP - General Family Medicine 07/29/23
--- OUTSIDE RECORDS SUMMARY | 2025-06-08 09:04 | XMS_ITS | Patient Health Record ---
Author Organization [facility] Address [address] [place] [address] Phone [phone] Care Team Providers Care Licensed Massage Therapist Name Role Phone Josue Trejo Unavailable [phone] Migration, Provider Unavailable Unavailable Reason For Referral No Information Medications Medication SIG (Take, Route, Frequency, Duration) Notes Start Date End Date Status DULoxetine HCl 30 MG Capsule Delayed Release Particles Oral Active Amoxicillin-Pot Clavulanate 500-125 MG Tablet Oral Active Toujeo SoloStar 300 UNIT/ML Solution Pen-injector Subcutaneous Active FLUZONE HIGH-DOSE 2019-20 (PF) 180 MCG/0.5 ML INTRAMUSCULAR SYRINGE *Reorder from [facility] for eRx and Interaction Alerts* Active Anoro Ellipta 62.5-25 MCG/INH Aerosol Powder Breath Activated Inhalation *Pick strength-form from [facility] for eRX* Active Ventolin HFA 108 (90 Base) MCG/ACT Aerosol Solution Inhalation Active ULTRA-FINE SHORT PEN NEEDLE 31 gauge x 5/16 NEEDLE, DISPOSABLE MISCELLANEOUS *Reorder from [facility] for eRx and Interaction Alerts* Active Nystatin 228296 UNIT/GM Powder External Active Nitroglycerin 0.4 MG Tablet Sublingual Sublingual Active Cephalexin 500 MG Capsule Oral Active Atorvastatin Calcium 80 MG Tablet Oral Active Levothyroxine Sodium 75 MCG Tablet Oral Active NOVOLOG FLEXPEN U-100 INSULIN ASPART 100 UNIT/ML (3 ML) SUBCUTANEOUS *Reorder from [facility] for eRx and Interaction Alerts* Active GaviLyte-G 236-22.74-6.74 -5.86 gram Solution Reconstituted Oral *Pick strength-form from [facility] for eRX* Active traZODone HCl 50 MG [...] PROPIONATE 50 MCG/ACTUATION NASAL SPRAY,SUSPENSION *Reorder from [facility] for eRx and Interaction Alerts* Active Pantoprazole Sodium 40 MG Tablet Delayed Release Oral Active VITAMIN D2 1,250 MCG (50,000 UNIT) CAPSULE *Reorder from [facility] for eRx and Interaction Alerts* Active Social History Social History Additional Details Category Social Info Options Details Migrated Social History Migrated Social History Tobacco Years: Never smoker 06/26/2020 Problems Problem Type SNOMED Code ICD Code Onset Dates Problem Status W/U Status Risk Notes Problem History of suspected exposure to biological agent (66687149521653 ) Encounter for observation for suspected exposure to other biological agents ruled out (Z03.818) 0 Active confirmed Encounters Encounter Location Date Provider Diagnosis [facility] [address] [place] [address] 03/25/2025 Provider Migration [facility] [address] [place] [address] 03/26/2025 Provider Migration Plan Of Treatment No Information
[2025-06-08 09:24] VITALS: BMI 25.2
--- NOTE | 2025-06-08 09:31 | PC.NURSE ---
0910 Labs obtained as ordered via venipuncture to R AC x1 stick with butterfly needle. Patient tolerated well. Patient here for Procrit based on pending lab results.
[2025-06-08 09:37] LABS: Hematocrit 26.2 % (37.0-47.0); Hemoglobin 8.1 g/dL (12.2-16.2)
[2025-06-08 09:47] LABS: Potassium 5.2 mmoL/L (3.5-5.1)
[2025-06-08 09:50] LABS: Creatinine Clearance Estimated 12 mL/min (50-200); Creatinine,Serum 3.90 mg/dl (0.52-1.04); Estimated Glomerular Filt Rate 11 ml/min (>60); GFR (African American) 13 ML/MIN (>60)
[2025-06-08 10:09] VITALS: BP 149/48; PULSE 68; RESP 14; TEMP 36.7; O2SAT 98
[2025-06-08] MEDS: EPOETIN 20,000 UNITS/ML MDV 20000 UNIT SUBCUT (10:09)
[2025-06-08 10:15] LABS: Iron 48 ug/dL (37-170)
[2025-06-08 10:25] LABS: Total Iron Binding Capacity 232 ug/dL (265-497)
[2025-06-08 10:50] LABS: Ferritin 62.5 ng/ml (11.1-264)
== END 2025-06-08 23:59 | disposition home or self-care (01) ==
LOC: INF 08:56
PROVIDERS: PCP Nurse Practitioner Family; Visit Provider Hospitalist
DX: N18.4 Chronic kidney disease, stage 4 (severe) (principal); D63.1 Anemia in chronic kidney disease
CPT/HCPCS: 36415; 82565; 82728; 83540; 83550; 84132; 85014; 85018; 96372; J0885

== ENCOUNTER 2025-06-22 12:55 | Outpatient (CLI) | payer MEDICARE, SELFPAY ==
--- OUTSIDE RECORDS SUMMARY | 2025-03-25 05:00 | XMS_ITS ---
Author Organization [facility] Address [address] [place] [address] Phone [phone] Care Team Providers Care Siding Mechanic Name Role Phone Lyssa Trejo Unavailable [phone] Migration, Provider Unavailable Unavailable REASON FOR VISIT EMR-Steven Encounters Encounter Location Date Provider Diagnosis [facility] [address] [place] [address] 03/25/2025 Provider Migration Plan Of Treatment No Information Progress Notes * LYSSA SAABDOB:[birth year] (84 yo F)Acc No.[id number]:03/25/2025 Patient: Lisa GREENELYSSA JACOBS :1940 A ge:84 Y S ex:Female [facility] [address] Subjective: * Chief Complaints: * E MR-Steven * * Date:
--- OUTSIDE RECORDS SUMMARY | 2025-03-26 05:00 | XMS_ITS ---
Author Organization [facility] bertha [facility] Address [address] [place] [address] Phone [phone] Care Team Providers Care Child Health Associate Name Role Phone Lyssa Trejo Unavailable [phone] Migration, Provider Unavailable Unavailable REASON FOR VISIT EMR-Steven Medications Medication SIG (Take, Route, Frequency, Duration) Notes Start Date End Date Status Ferrous Sulfate 325 (65 Fe) MG Tablet Oral Active Ventolin HFA 108 (90 Base) MCG/ACT Aerosol Solution Inhalation Active FLUZONE HIGH-DOSE 2019-20 (PF) 180 MCG/0.5 ML INTRAMUSCULAR SYRINGE *Reorder from [email or web address] for eRx and Interaction Alerts* Active Nystatin 091203 UNIT/GM Powder External Active Nitroglycerin 0.4 MG Tablet Sublingual Sublingual Active ULTRA-FINE SHORT PEN NEEDLE 31 gauge x 5/16 NEEDLE, DISPOSABLE MISCELLANEOUS *Reorder from [email or web address] for eRx and Interaction Alerts* Active Cephalexin 500 MG Capsule Oral Active Atorvastatin Calcium 80 MG Tablet Oral Active Levothyroxine Sodium 75 MCG Tablet Oral Active NOVOLOG FLEXPEN U-100 INSULIN ASPART 100 UNIT/ML (3 ML) SUBCUTANEOUS *Reorder from [email or web address] for eRx and Interaction Alerts* Active Sodium Bicarbonate 650 MG Tablet Oral Active Lantus 100 UNIT/ML Solution Subcutaneous Active VITAMIN D2 1,250 MCG (50,000 UNIT) CAPSULE *Reorder from [email or web address] for eRx and Interaction Alerts* Active GaviLyte-G 236-22.74-6.74 -5.86 gram Solution Reconstituted Oral *Pick strength-form from [email or web address] for eRX* Active traZODone HCl 50 MG Tablet Oral Active DULoxetine HCl 30 MG Capsule Delayed Release Particles Oral Active Furosemide 80 MG Tablet Oral Active Fluconazole 100 MG Tablet Oral Active FLUTICASONE PROPIONATE 50 MCG/ACTUATION NASAL SPRAY,SUSPENSION *Reorder from [email or web address] for eRx and Interaction Alerts* Active Pantoprazole Sodium 40 MG Tablet Delayed Release Oral Active Amoxicillin-Pot Clavulanate 500-125 MG Tablet Oral Active Toujeo SoloStar 300 UNIT/ML Solution Pen-injector Subcutaneous Active Clopidogrel Bisulfate 75 MG Tablet Oral Active Anoro Ellipta 62.5-25 MCG/INH Aerosol Powder Breath Activated Inhalation *Pick strength-form from [email or web address] for eRX* Active Bystolic 5 MG Tablet Oral Active Social History Social History Additional Details Category Social Info Options Details Migrated Social History Migrated Social History Tobacco Years: Never smoker 06/26/2020 Encounters Encounter Location Date Provider Diagnosis [facility], [facility] [address] [place] [address] 03/26/2025 Provider Migration Plan Of Treatment No Information Progress Notes * KAISER JUDYMARIANELADOB:[birth year] (84 yo F)Acc No.[id number]:03/26/2025 Patient: LYSSA POLANCO :1940 A ge:84 Y S ex:Female Address:[address] [place] [address] Subjective: * Chief Complaints: * E MR-Steven * Social History: M igrated Social History: M igrated Social History: Tobacco Years: Never smoker 06/26/2020. * Medications: T akingBystolic 5 MG Tablet Oral Clopidogrel Bisulfate 75 MG Tablet Oral Pantoprazole Sodium 40 MG Tablet Delayed Release Oral FLUTICASONE PROPIONATE 50 MCG/ACTUATION NASAL SPRAY,SUSPENSION , Notes to Pharmacist: *Reorder from [email or web address] for eRx and Interaction Alerts*Cephalexin 500 MG Capsule Oral Levothyroxine Sodium 75 MCG Tablet Oral ULTRA-FINE SHORT PEN NEEDLE 31 gauge x 5/16 NEEDLE, DISPOSABLE MISCELLANEOUS , Notes to Pharmacist: *Reorder from [email or web address] for eRx and Interaction Alerts*Ferrous Sulfate 325 (65 Fe) MG Tablet Oral Atorvastatin Calcium 80 MG Tablet Oral Nitroglycerin 0.4 MG Tablet Sublingual Sublingual Nystatin 479614 UNIT/GM Powder External Ventolin HFA 108 (90 Base) MCG/ACT Aerosol Solution Inhalation Anoro Ellipta 62.5-25 MCG/INH Aerosol Powder Breath Activated Inhalation , Notes to Pharmacist: *Pick strength-form from [email or web address] for eRX*Lantus 100 UNIT/ML Solution Subcutaneous Sodium [...] 0.4 MG Tablet Sublingual Sublingual Taking Nystatin 840230 UNIT/GM Powder External Taking Ventolin HFA 108 [...]
--- OUTSIDE RECORDS SUMMARY | 2025-05-27 15:02 | XMS_ITS | Encounter Summary ---
Author Organization [employer] ([place], [place], [place], [place]) Address [address] [place] [address] Care Team Providers Care Carbon Setter Name Role Phone Anand Noble MD Primary Care Provider Reason for Visit * Auth/Cert (Routine) Specialty Diagnoses / Procedures Referred By Cooper nelson Referred To Contact Diagnoses GI bleeding GIB (GastroIntestinal Bleed) [address] Telemetry [address] [place] [address] Phone: tel: fax: [address] Medical Telemetry [address] [place] [address] Phone: tel: fax: Referral ID Status Reason Start Date Expiration Date Visits Re quested Visits Authorized [id number] 1 1 Encounter Details Date Type Department Care Team (Late st Contact Info) Description 05/27/2025 3:02 PM EDT - 05/29/2025 4:43 PM EDT Hospital Encounter [address] Medical Telemetry [address] [place] [address] Alan Vargas DO [address] [place] [address] Vane Corley MD [address] [place] [address] Discharge Disposition: [facility] Social History Tobacco Use Types Packs/Day [...] Date Juan rded Speak language other than Indian at home Not on file 09/01/2023 Want [...] Your Medications These medications were sent to [facility] at [address] [facility] [address] [address] oxyCODONE 5 MG immediate release tablet pantoprazole [...] Medicine, Sports Medicine Relationship: PCP - General [address] [place] [address] Next Steps: Follow up in 1 week(s) Ebony Gipson MD Specialty: Gastroenterology [address] [facility] [address] Next Steps: Follow up in 1 month(s) [facility] Specialty: [facility] Facility [address] [facility] [address] [place] [id number] Next Steps: Follow up Time Spent: 33 min Electronically signed by Vane Corley MD, 05/29/25, 3:35 PM EDT documented in this encounter Discharge Instructions * Attachments The following attachments cannot be sent through Care Everywhere. * Blood Transfusion Adult (Indian) documented in this encounter Medications at Time [...] hours as needed for nausea or vomiting. pantoprazole (PROTONIX) 40 MG tablet Take 1 [...] Max Daily Amount: 15 mg 9 tablet 06/01/20 25 documented as of this encounter Progress Notes * Reece Thompson RN - 05/29/2025 3:36 PM EDT Report called to Diann at [place]. * Ravi Trent MD - 05/29/2025 1:30 [...] Labs Lab(s) Units 05/29/25 0250 05/28/25 0626 10/04/223305/27/25 1547 WBC K/??L 8.1 7.8 -- 10.4* [...] renal function - No emergent need of TILE SETTER APPRENTICE - Monitor H/H and transfuse for Hgb less than 7.0 - Low sodium diet and fluid restriction 1.5 lit/day Dispo: Patient to follow[facility]up with [facility] outpatient after discharge in 1 month. Ravi [...] PM Result Value Ref Range Issue Date/Time [id number] Product Identification Red Blood Cells Product Code [id number] Status Information TRANSFUSED Unit Number [id number] Blood Type 5100 Cross Match Results Compatible [...] Range POC-GLUCOSE 110 70 - 110 mg/dL Automatic Screwmaker [id number] Glucose, Nova Meter Status: Abnormal Collection Time: 05/27/25 5:42 PM Result Value Ref Range POC-GLUCOSE 161 (H) 70 - 110 mg/dL Automatic Screwmaker [id number] Hemoglobin and hematocrit Status: Abnormal Collection Time: 05/27/25 10:34 PM Result Value Ref Range Hemoglobin 6.4 (LL) 11.2 - 15.7 GM/DL Hematocrit 19.7 (L) 34.1 - 44.9 % Prepare RBC: 1 Units Status: None Collection Time: 05/27/25 10:54 PM Result Value Ref Range Issue Date/Time [id number] Product Identification Red Blood Cells Product Code [id number] Status Information TRANSFUSED Unit Number [id number] Blood Type 5100 Cross Match Results Compatible Glucose, Nova Meter Status: None Collection Time: 05/28/25 12:09 AM Result Value Ref Range POC-GLUCOSE 92 70 - 110 mg/dL Automatic Screwmaker [id number] Glucose, Nova Meter Status: None Collection Time: 05/28/25 6:03 AM Result Value Ref Range POC-GLUCOSE 105 70 - 110 mg/dL Automatic Screwmaker [id number] CBC - Hemogram (SJ-BKR) Status: Abnormal Collection [...] POC-GLUCOSE 191 (H) 70 - 110 mg/dL Automatic Screwmaker [id number] IR REQUEST - MISCELLANEOUS Narrative: TUNNELED CATHETER REMOVAL PHYSICIAN CORRUGATED FASTENER DRIVER: Chris Tipton PA-C. RADIOLOGIST: Hussein Mast M.D. [...] Potassium 5.3 this morning , will order [employer] monitor #chronic Kidney disease Gentle IV hydration [...] to feel better and return to [facility]. Pain No - Patient not reporting pain at this time Cognition Patient is alert and oriented x 4. Home Living Patient is a resident of the jail, receives assist with her functional activities and [...] applicable Wheelchair Mobility Not applicable. Outcome Measures [facility] Basic Mobility Inpatient Short Form How much [...] from the original note were not included. [address] MEDICAL TELEMETRY UNIT Inpatient Occupational Therapy [...] body dressing:Maximal Assistance Toileting:Minimal Assistance Outcome Measures [facility] Daily Living Functional Assessment How much help [...] (Minimal/Contact guard/Supervision/Setup) 4=None (Modified independent/Independent) The patient's [facility] raw score is 19. The patient currently has 42.80% functional impairment. Clinicians are most likely to recommend inpatient/SNF/terminologist care for patients with scores between 6-17, [...] will likely be appropriate for inpatient rehab/SNF/ skilled nursing care post hospitalization. Plan Recommendations Discharge recommendations: [...] - MISCELLANEOUS Narrative: TUNNELED CATHETER REMOVAL PHYSICIAN CORRUGATED FASTENER DRIVER: Chris Tipton PA-C. RADIOLOGIST: Hussein Mast M.D. [...] Ext: No Pedal edema , no cyanosis,PPP ENVIRONMENTAL SERVICES ASSOCIATE: Alert,Oriented. Cranial nerves intact, No focal deficit noted grossly. Psy: Cooperative,appropriate mood and affect Skin: Warm dry and pink Relevant Results: Results for orders placed or performed during the hospital encounter of 05/27/25 (from the past 24 hours) Prepare RBC: 1 Units Status: None Collection Time: 05/27/25 3:23 PM Result Value Ref Range Issue Date/Time [id number] Product Identification Red Blood Cells Product Code [id number] Status Information TRANSFUSED Unit Number [id number] Blood Type 5100 Cross Match Results Compatible [...] Range POC-GLUCOSE 110 70 - 110 mg/dL Automatic Screwmaker [id number] Glucose, Nova Meter Status: Abnormal Collection Time: 05/27/25 5:42 PM Result Value Ref Range POC-GLUCOSE 161 (H) 70 - 110 mg/dL Automatic Screwmaker [id number] Hemoglobin and hematocrit Status: Abnormal Collection Time: 05/27/25 10:34 PM Result Value Ref Range Hemoglobin 6.4 (LL) 11.2 - 15.7 GM/DL Hematocrit 19.7 (L) 34.1 - 44.9 % Prepare RBC: 1 Units Status: None Collection Time: 05/27/25 10:54 PM Result Value Ref Range Issue Date/Time [id number] Product Identification Red Blood Cells Product Code [id number] Status Information TRANSFUSED Unit Number [id number] Blood Type 5100 Cross Match Results Compatible Glucose, Nova Meter Status: None Collection Time: 05/28/25 12:09 AM Result Value Ref Range POC-GLUCOSE 92 70 - 110 mg/dL Automatic Screwmaker [id number] Glucose, Nova Meter Status: None Collection Time: 05/28/25 6:03 AM Result Value Ref Range POC-GLUCOSE 105 70 - 110 mg/dL Automatic Screwmaker [id number] CBC - Hemogram (-BKR) Status: Abnormal Collection [...] Units 05/28/25 0626 05/28/25 0603 05/28/25 0009 05/27/254 05/27/25 1742 05/27/25 1701 05/27/25 1547 NA [...] renal function - No emergent need of TILE SETTER APPRENTICE - Monitor H/H and transfuse for Hgb [...] or rectal bleeding. She was hospitalized at [facility] 3 months ago with similar [...] nursing note reviewed. Exam conducted with a reverse logistics analyst present. Constitutional: General: She is not in [...] PM Result Value Ref Range Issue Date/Time [id number] Product Identification Red Blood Cells Product Code H1434C85 Status Information TRANSFUSED Unit Number [id number] Blood Type 5100 Cross Match Results Compatible [...] Range POC-GLUCOSE 110 70 - 110 mg/dL Automatic Screwmaker [id number] Glucose, Nova Meter Status: Abnormal Collection Time: 05/27/25 5:42 PM Result Value Ref Range POC-GLUCOSE 161 (H) 70 - 110 mg/dL Automatic Screwmaker [id number] Assessment & Plan Principal Problem: GI bleeding [...] will demonstrate appropriate pressure relief techniques 05/28/2025 0704 by Viri Shin RN Outcome: [...] - Patient demonstrates pressure reduction techniques 05/28/2025 0704 by Viri Shin RN Outcome: [...] - 110 mg/dL 05/29/2025 10:47 AM EDT [facility] Comment: In the event of poor peripheral blood flow, venous or arterial blood should be used due to the potential of erroneous results. Notified Nurse RBV Automatic Screwmaker [id number] 05/29/2025 10:47 AM EDT [facility] Blood WHOLE BLOOD / Unknown 05/29/2025 10:46 AM EDT 05/29/2025 10:47 AM EDT Narrative [facility] - 05/29/2025 10:47 AM EDT Automatic Screwmaker ID is - [id number] Vane Corley MD POINT OF CARE TEST ORDERABLES Final Result [facility] [address] [phone] * (ABNORMAL) Glucose, Nova Meter (05/29/2025 4:53 AM EDT) POC-GLUCOSE 141(H) 70 - 110 mg/dL 05/29/2025 4:54 AM EDT [facility] Comment: In the event of poor peripheral blood flow, venous or arterial blood should be used due to the potential of erroneous results. Protocols Followed Notified Nurse RBV Automatic Screwmaker [id number] 05/29/2025 4:54 AM EDT [facility] Blood WHOLE BLOOD / Unknown 05/29/2025 4:53 AM EDT 05/29/2025 4:54 AM EDT Narrative [facility] - 05/29/2025 4:54 AM EDT Automatic Screwmaker ID is - [id number] us Vane Corley MD POINT OF CARE TEST ORDERABLES Final Result [facility] [address] [phone] * (ABNORMAL) Basic Metabolic Panel (05/29/2025 2:50 AM EDT) Sodium 143 136 - 145 meq/L 05/29/2025 3:48 AM EDT [facility] Potassium 4.6 3.4 - 5.1 meq/L 05/29/2025 3:48 AM EDT [facility] CO2 20(L) 22 - 29 meq/L 05/29/2025 3:48 AM EDT [facility] Chloride 113(H) 98 - 112 meq/L 05/29/2025 3:48 AM EDT [facility] Glucose 134(H) 82 - 115 mg/dL 05/29/2025 3:48 AM EDT [facility] BUN 83.4(H) 9.8 - 20.1 mg/dL 05/29/2025 3:48 AM EDT [facility] Creatinine 3.13(H) 0.57 - 1.11 mg/dL 05/29/2025 3:48 AM EDT [facility] BUN/Creatinine 27(H) 8 - 20 05/29/2025 3:48 AM EDT [facility] Calcium 8.7 8.4 - 10.2 mg/dL 05/29/2025 3:48 AM EDT [facility] Anion Gap 15(H) 4 - 12 05/29/2025 3:48 AM EDT [facility] eGFR (mL/min/1.73m2) 14(L) >=60 mL/min/1.7 3m2 05/29/2025 3:48 AM EDT [facility] Comment:ESTIMATED GFR IS NOT ACCURATE CREATININE CLEARANCE IN PREDICTING GLOMERULAR FILTRATION RATE. ESTIMATED GFR IS NOT APPLICABLE FOR DIALYSIS PATIENTS. Osmolality Calc 312.2 mOsm/kg 3:48 AM EDT [facility] Blood Venipuncture / Unknown 05/29/2025 2:50 AM EDT 05/29/2025 3:18 AM EDT us Vane Corley MD LAB BLOOD ORDERABLES Final Re sult [facility] [address] [phone] * (ABNORMAL) CBC with Automated Diff (05/29/2025 2:50 AM EDT) WBC 8.1 4.0 - 10.0 K/ L 05/29/2025 3:24 AM EDT [facility] RBC 2.66(L) 3.93 - 5.22 M/ L 05/29/2025 3:24 AM EDT [facility] Hemoglobin 8.0(L) 11.2 - 15.7 GM/DL 05/29/2025 3:24 AM EDT [facility] Hematocrit 25.6(L) 34.1 - 44.9 % 05/29/2025 3:24 AM EDT [facility] MCV 96(H) 79 - 95 fL 05/29/2025 3:24 AM EDT [facility] MCH 30.1 25.6 - 32.2 pg 05/29/2025 3:24 AM EDT [facility] MCHC 31.3(L) 32.2 - 35.5 GM/DL 05/29/2025 3:24 AM EDT [facility] RDW 18.7(H) 11.7 - 14.4 % 05/29/2025 3:24 AM EDT [facility] Platelets 215 140 - 375 K/CU MM 05/29/2025 3:24 AM EDT [facility] MPV 10.5 9.4 - 12.3 fL 05/29/2025 3:24 AM EDT [facility] % Neutros 71 34 - 71 % 05/29/2025 3:24 AM EDT [facility] % Lymphs 15(L) 19 - 52 % 05/29/2025 3:24 AM EDT [facility] % Monos 12 5 - 13 % 05/29/2025 3:24 AM EDT [facility] % Eos 2 1 - 6 % 05/29/2025 3:24 AM EDT [facility] % Baso 0 0 - 1 % 05/29/2025 3:24 AM EDT [facility] NRBC Absolute <0.01 0 - 0.012 K/ul 05/29/2025 3:24 AM EDT [facility] # Neutros 5.67 1.56 - 6.13 K/ L 05/29/2025 3:24 AM EDT [facility] # Lymphs 1.20 1.18 - 3.74 K/ L 05/29/2025 3:24 AM EDT [facility] # Monos 0.99(H) 0.24 - 0.86 K/ L 05/29/2025 3:24 AM EDT [facility] # Eos 0.13 0.04 - 0.36 K/ L 05/29/2025 3:24 AM EDT [facility] # Baso <0.03 0.01 - 0.08 K/ L 05/29/2025 3:24 AM EDT [facility] % Imm Grans 0.50(H) 0.01 - 0.43 % 05/29/2025 3:24 AM EDT [facility] # IG 0.04(H) 0.00 - 0.03 K/uL 05/29/2025 3:24 AM EDT [facility] Blood Venipuncture / Unknown 05/29/2025 2:50 AM EDT 05/29/2025 3:17 AM EDT Narrative [facility] - 05/29/2025 3:24 AM EDT [...] MD LAB BLOOD ORDERABLES Final Re sult [facility] [address] [place] [address], [facility] [phone] * (ABNORMAL) Glucose, Nova Meter (05/28/2025 11:29 PM EDT) POC-GLUCOSE 156(H) 70 - 110 mg/dL 05/28/2025 11:30 PM EDT [facility] Comment: In the event of poor peripheral blood flow, venous or arterial blood should be used due to the potential of erroneous results. Protocols Followed Automatic Screwmaker [id number] 05/28/2025 11:30 PM EDT [facility] Blood WHOLE BLOOD / Unknown 05/28/2025 11:29 PM EDT 05/28/2025 11:30 PM EDT [facility] - 05/28/2025 11:30 PM EDT Automatic Screwmaker ID is - [id number] us Vane Corley MD POINT OF CARE TEST ORDERABLES Final Result [facility] [address] [place] [address], [facility] [phone] * (ABNORMAL) Glucose, Nova Meter (05/28/2025 7:41 PM EDT) POC-GLUCOSE 194(H) 70 - 110 mg/dL 05/28/2025 7:43 PM EDT [facility] Comment: In the event of poor peripheral blood flow, venous or arterial blood should be used due to the potential of erroneous results. Protocols Followed Notified Nurse RBV Automatic Screwmaker [id number] 05/28/2025 7:43 PM EDT [facility] Blood WHOLE BLOOD / Unknown 05/28/2025 7:41 PM EDT 05/28/2025 7:43 PM EDT [facility] - 05/28/2025 7:43 PM EDT Automatic Screwmaker ID is - [id number] us Osama Elsallabi MD POINT OF CARE TEST ORDERABLES Final Result [facility] [address] [phone] * Glucose, Nova Meter (05/28/2025 3:37 PM EDT) POC-GLUCOSE 99 70 - 110 mg/dL 05/28/2025 3:39 PM EDT [facility] Comment: In the event of poor peripheral blood flow, venous or arterial blood should be used due to the potential of erroneous results. Protocols Followed Automatic Screwmaker [id number] 05/28/2025 3:39 PM EDT [facility] Blood WHOLE BLOOD / Unknown 05/28/2025 3:37 PM EDT 05/28/2025 3:39 PM EDT Narrative [facility] - 05/28/2025 3:39 PM EDT Automatic Screwmaker ID is - [id number] us Vane Corley MD POINT OF CARE TEST ORDERABLES Final Result Performing Organization Address [facility]/ZIP Co de Phone Number [facility] [address] [phone] * Urea Nitrogen, random urine (05/28/2025 1:19 PM EDT) Urea Nitrogen, Ur 562 mg/dL 05/28/2025 1:45 PM EDT [facility] Comment: Reference Range not established Reference range not established Urine 05/28/2025 1:19 PM EDT 05/28/2025 1:21 PM EDT Pa Santos MD URINE ORDERABLES Final Result Performing Organization Address [facility]/ZIP Co de Phone Number [facility] [address] [phone] * (ABNORMAL) Protein / creatinine ratio, urine (05/28/2025 1:19 PM EDT) Creatinine, Ur 39.00(L) 47.00 - 110.00 mg/dL 05/28/2025 1:45 PM EDT [facility] Protein Creatinine Ratio 1.95(H) <=0.20 05/28/2025 1:45 PM EDT [facility] Protein, Urine 76(H) 1 - 14 mg/dL 05/28/2025 1:45 PM EDT [facility] Urine 05/28/2025 1:19 PM EDT 05/28/2025 1:21 PM EDT us Pa Santos MD URINE ORDERABLES Final Result Performing Organization Address [facility]/ZIP Co wa Phone Number [facility] [address] [phone] * Sodium, random urine (05/28/2025 1:19 PM EDT) Sodium Urine 56 See Comment meq/L 05/28/2025 1:45 PM EDT [facility] Comment:Reference Range not established Urine 05/28/2025 1:19 PM EDT 05/28/2025 1:21 PM EDT us Pa Santos MD URINE ORDERABLES Final Result Performing Organization Address [facility] Co wa Phone Number [facility] [address] [phone] * (ABNORMAL) Urinalysis w/Microscopic (05/28/2025 1:19 PM EDT) Color, UA Light Yellow 05/28/2025 1:29 PM EDT [facility] Clarity, UA Clear Clear 05/28/2025 1:29 PM EDT [facility] Specific [place], UA 1.012 1.005 - 1.030 05/28/2025 1:29 PM EDT [facility] pH, UA 5.5(L) 6.0 - 8.0 05/28/2025 1:29 PM EDT [facility] Leukocytes, UA Negative Negative 05/28/2025 1:29 PM EDT [facility] Nitrite, UA Negative Negative 05/28/2025 1:29 PM EDT [facility] Protein, UA 1+(A) Negative 05/28/2025 1:29 PM EDT [facility] Glucose, UA 4+(A) Normal 05/28/2025 1:29 PM EDT [facility] Ketones, UA Negative Negative 05/28/2025 1:29 PM EDT [facility] Urobilinogen, UA Normal Normal 05/28/2025 1:29 PM EDT [facility] Bilirubin, UA Negative Negative 05/28/2025 1:29 PM EDT [facility] Blood, UA Negative Negative 05/28/2025 1:29 PM EDT [facility] RBC, UA 0-2(A) None Seen /HPF 05/28/2025 1:29 PM EDT [facility] WBC, UA 0-2(A) None Seen /HPF 05/28/2025 1:29 PM EDT [facility] Bacteria, UA None Seen None Seen, Trace 05/28/2025 1:29 PM EDT [facility] SQUAMOUS EPITHELIAL 0-2(A) None Seen /HPF 05/28/2025 1:29 PM EDT [facility] Specimen Source Urine, Sterile Collection 05/28/2025 1:29 PM EDT [facility] Urine STERILE URINE SPECIMEN CONTAINER / Unknown 05/28/2025 1:19 PM EDT 05/28/2025 1:24 PM EDT Pa Santos MD URINE ORDERABLES Final Result [facility] [address] [phone] * (ABNORMAL) Glucose, Nova Meter (05/28/2025 10:43 AM EDT) POC-GLUCOSE 191(H) 70 - 110 mg/dL 05/28/2025 10:47 AM EDT [facility] Comment: In the event of poor peripheral blood flow, venous or arterial blood should be used due to the potential of erroneous results. Notified Nurse RBV Automatic Screwmaker [id number] 05/28/2025 10:47 AM EDT [facility] Blood WHOLE BLOOD / Unknown 05/28/2025 10:43 AM EDT 05/28/2025 10:47 AM EDT Narrative [facility] - 05/28/2025 10:47 AM EDT Automatic Screwmaker ID is - [id number] us Vane Corley MD POINT OF CARE TEST ORDERABLES Final Result Performing Organization Address [facility]/ZIP Co de Phone Number [facility] [address] [phone] * Magnesium (05/28/2025 6:26 AM EDT) Magnesium 1.8 1.6 - 2.6 mg/dL 05/28/2025 6:38 PM EDT [facility] Blood Venipuncture / Unknown 05/28/2025 6:26 AM EDT 05/28/2025 6:33 AM EDT Vane Corley MD LAB BLOOD ORDERABLES Final Re sult Performing Organization Address [facility]/ZIP Co de Phone Number [facility] [address] [phone] * Lactate dehydrogenase (LDH) (05/28/2025 6:26 AM EDT) LDH 165 125 - 220 U/L 05/28/2025 12:09 PM EDT [facility] Blood Venipuncture / Unknown 05/28/2025 6:26 AM EDT 05/28/2025 6:33 AM EDT us Pa Santos MD LAB BLOOD ORDERABLES Final Resu lt Performing Organization Address City/[facility]/ZIP Co de Phone Number [facility] [address] [phone] * Creatine Kinase (CK) (05/28/2025 6:26 AM EDT) Total CK 41 29 - 168 U/L 05/28/2025 12:09 PM EDT [facility] Blood Venipuncture / Unknown 05/28/2025 6:26 AM EDT 05/28/2025 6:33 AM EDT Pa Santos MD LAB BLOOD ORDERABLES Final Resu lt Performing Organization Address [facility]/ZIP Co de Phone Number [facility] [address] [phone] * (ABNORMAL) Uric acid (05/28/2025 6:26 AM EDT) [facility] Uric Acid 6.7(H) 2.5 - 6.2 mg/dL 05/28/2025 12:09 PM EDT [facility] Blood Venipuncture / Unknown 05/28/2025 6:26 AM EDT 05/28/2025 6:33 AM EDT Pa Santos MD LAB BLOOD ORDERABLES Final Resu lt Performing Organization Address [facility] Co de Phone Number [facility] [address] [phone] * (ABNORMAL) Basic Metabolic Panel (05/28/2025 6:26 AM EDT) Pathologist [facility] [place] Sodium 142 136 - 145 meq/L 05/28/2025 6:59 AM EDT [facility] Potassium 5.3(H) 3.4 - 5.1 meq/L 05/28/2025 6:59 AM EDT [facility] CO2 18(L) 22 - 29 meq/L 05/28/2025 6:59 AM EDT [facility] Chloride 113(H) 98 - 112 meq/L 05/28/2025 6:59 AM EDT [facility] Glucose 106 82 - 115 mg/dL 05/28/2025 6:59 AM EDT [facility] BUN 94.0(H) 9.8 - 20.1 mg/dL 05/28/2025 6:59 AM EDT [facility] Creatinine 3.48(H) 0.57 - 1.11 mg/dL 05/28/2025 6:59 AM EDT [facility] BUN/Creatinine 27(H) 8 - 20 05/28/2025 6:59 AM EDT [facility] Calcium 9.2 8.4 - 10.2 mg/dL 05/28/2025 6:59 AM EDT [facility] Anion Gap 16(H) 4 - 12 05/28/2025 6:59 AM EDT [facility] eGFR (mL/min/1.73m2) 13(L) >=60 mL/min/1.7 3m2 05/28/2025 6:59 AM EDT [facility] Comment:ESTIMATED GFR IS NOT ACCURATE CREATININE CLEARANCE IN PREDICTING GLOMERULAR FILTRATION RATE. ESTIMATED GFR IS NOT APPLICABLE FOR DIALYSIS PATIENTS. Osmolality Calc 312.6 mOsm/kg 6:59 AM EDT [facility] Blood Venipuncture / Unknown 05/28/2025 6:26 AM EDT 05/28/2025 6:33 AM EDT us Vane Corley MD LAB BLOOD ORDERABLES Final Re sult [facility] [address] [phone] * (ABNORMAL) CBC - Hemogram (SJ-BKR) (05/28/2025 6:26 AM EDT) WBC 7.8 4.0 - 10.0 K/ L 05/28/2025 6:43 AM EDT [facility] RBC 2.59(L) 3.93 - 5.22 M/ L 05/28/2025 6:43 AM EDT [facility] Hemoglobin 7.9(L) 11.2 - 15.7 GM/DL 05/28/2025 6:43 AM EDT [facility] Hematocrit 24.7(L) 34.1 - 44.9 % 05/28/2025 6:43 AM EDT [facility] MCV 95 79 - 95 fL 05/28/2025 6:43 AM EDT [facility] MCH 30.5 25.6 - 32.2 pg 05/28/2025 6:43 AM EDT [facility] MCHC 32.0(L) 32.2 - 35.5 GM/DL 05/28/2025 6:43 AM EDT [facility] RDW 18.3(H) 11.7 - 14.4 % 05/28/2025 6:43 AM EDT [facility] Platelets 193 140 - 375 K/CU MM 05/28/2025 6:43 AM EDT [facility] MPV 10.7 9.4 - 12.3 fL 05/28/2025 6:43 AM EDT [facility] Blood Venipuncture / Unknown 05/28/2025 6:26 AM EDT 05/28/2025 6:33 AM EDT us Vane Corley MD LAB BLOOD ORDERABLES Final Re sult [facility] [address] [place] [address] * Glucose, Nova Meter (05/28/2025 6:03 AM EDT) [facility] Signature POC-GLUCOSE 105 70 - 110 mg/dL 05/28/2025 6:04 AM EDT [facility] Comment: In the event of poor peripheral blood flow, venous or arterial blood should be used due to the potential of erroneous results. Notified Nurse RBV Automatic Screwmaker [id number] 05/28/2025 6:04 AM EDT [facility] Blood WHOLE BLOOD / Unknown 05/28/2025 6:03 AM EDT 05/28/2025 6:04 AM EDT Narrative [facility] - 05/28/2025 6:04 AM EDT Automatic Screwmaker ID is - [id number] us Vane Corley MD POINT OF CARE TEST ORDERABLES Final Result [facility] [address] [phone] * Transfuse RBC (05/28/2025 5:09 AM EDT) Karlo Hercules PA-C FS_MODEL_IP_BLOOD TRANSFUSION ORDERABLES Final Result * Transfuse RBC: 1 Units (05/28/2025 5:09 AM EDT) Karlo Hercules PA-C FS_MODEL_IP_BLOOD TRANSFUSION ORDERABLES Final Result * Glucose, Nova Meter (05/28/2025 12:09 AM EDT) Pathologist [facility] [place] POC-GLUCOSE 92 70 - 110 mg/dL 05/28/2025 12:10 AM EDT [facility] Comment: In the event of poor peripheral blood flow, venous or arterial blood should be used due to the potential of erroneous results. Notified Nurse RBV Automatic Screwmaker [id number] 05/28/2025 12:10 AM EDT [facility] Blood WHOLE BLOOD / Unknown 05/28/2025 12:09 AM EDT 05/28/2025 12:10 AM EDT Narrative [facility] - 05/28/2025 12:10 AM EDT Automatic Screwmaker ID is - [id number] us Vane Corley MD POINT OF CARE TEST ORDERABLES Final Result Performing Organization Address City/[facility]/ZIP Co de Phone Number [facility] [address] [phone] * Prepare RBC: 1 Units (05/27/2025 10:54 PM EDT) Pathologist [facility] [place] Issue Date/Time [id number] [facility] [place] [place]) Product Identification Red Blood Cells [facility] [place]) Product Code [id number] [facility] ([place]) Status Information TRANSFUSED [facility] ([place]) Unit Number [id number] [facility] [place] ([place]) Blood Type 5100 [facility] ([place]) Cross Match Results Compatible [facility] ([place]) us Karlo Hercules PA-C FS_MODEL_IP_BLOOD BANK PRODUCT ORDERABLES Final Result Performing Organization Address [facility]/ZIP Co de Phone Number [facility] ([place]) [address] [place] [address], [facility] [phone] * (ABNORMAL) Hemoglobin and hematocrit (05/27/2025 10:34 PM EDT) Hemoglobin 6.4(LL) 11.2 - 15.7 GM/DL 05/27/2025 10:42 PM EDT [facility] Hematocrit 19.7(L) 34.1 - 44.9 % 05/27/2025 10:42 PM EDT [facility] Blood Venipuncture / Unknown 05/27/2025 10:34 PM EDT 05/27/2025 10:38 PM EDT Vaen Corley MD LAB BLOOD ORDERABLES Final Re sult [facility] [address] [place] [address], [facility] [phone] * Transfuse RBC (05/27/2025 8:55 PM EDT) Vane Corley MD FS_MODEL_IP_BLOOD TRANSFUSION ORDERABLES Final Result * Transfuse RBC: 1 Units (05/27/2025 8:55 PM EDT) us Vane Corley MD FS_MODEL_IP_BLOOD TRANSFUSION ORDERABLES Final Result * (ABNORMAL) Glucose, Nova Meter (05/27/2025 5:42 PM EDT) POC-GLUCOSE 161(H) 70 - 110 mg/dL 05/27/2025 5:43 PM EDT [facility] Comment: In the event of poor peripheral blood flow, venous or arterial blood should be used due to the potential of erroneous results. Notified Nurse RBV Automatic Screwmaker [id number] 05/27/2025 5:43 PM EDT [facility] Blood WHOLE BLOOD / Unknown 05/27/2025 5:42 PM EDT 05/27/2025 5:43 PM EDT Narrative [facility] - 05/27/2025 5:43 PM EDT Automatic Screwmaker ID is - [id number] Vane Corley MD POINT OF CARE TEST ORDERABLES Final Result Performing Organization Address [facility] Co de Phone Number [facility] [address] [phone] * Glucose, Nova Meter (05/27/2025 5:01 PM EDT) POC-GLUCOSE 110 70 - 110 mg/dL 05/27/2025 5:02 PM EDT [facility] Comment: In the event of poor peripheral blood flow, venous or arterial blood should be used due to the potential of erroneous results. Protocols Followed Automatic Screwmaker [id number] 05/27/2025 5:02 PM EDT [facility] Blood WHOLE BLOOD / Unknown 05/27/2025 5:01 PM EDT 05/27/2025 5:02 PM EDT Narrative [facility] - 05/27/2025 5:02 PM EDT Automatic Screwmaker ID is - [id number] us Vane Corley MD POINT OF CARE TEST ORDERABLES Final Result Performing Organization Address [facility]/ZIP Co de Phone Number [facility] [address] [place] [address], [facility] [phone] * Type and Screen (05/27/2025 3:48 PM EDT) ABO/Rh O Positive 05/27/2025 3:54 PM EDT [facility] ([place]) Antibody Screen Negative 05/27/2025 3:54 PM EDT [facility] ([place]) HISTCHK HIST CHECK PERFORMED 05/27/2025 3:54 PM EDT [facility] ([place]) Blood Venipuncture / Unknown 05/27/2025 3:48 PM EDT 05/27/2025 3:54 PM EDT us Vane Corley MD [facility] BLOOD BANK TEST ORDERABLE S Final Result Performing Organization Address [facility]/ZIP Co de Phone Number [facility] BLOOD [facility] ([place]) [address] [place] [address] * Ferritin (05/27/2025 3:47 PM EDT) Ferritin 115.24 4.63 - 204.00 ng/mL 05/27/2025 4:30 PM EDT [facility] Blood Venipuncture / Unknown 05/27/2025 3:47 PM EDT 05/27/2025 3:53 PM EDT us Vane Corley MD LAB BLOOD ORDERABLES Final Re sult Performing Organization Address City/[facility]/ZIP Co de Phone Number [facility] [address] [phone] * (ABNORMAL) Iron and TIBC (05/27/2025 3:47 PM EDT) Iron 74 50 - 170 ug/dL 05/27/2025 4:30 PM EDT [facility] TIBC 203(L) 250 - 435 ug/dL 05/27/2025 4:30 PM EDT [facility] % Saturation 36 % 05/27/2025 4:30 PM EDT [facility] UIBC 129 05/27/2025 4:30 PM EDT [facility] Blood Venipuncture / Unknown 05/27/2025 3:47 PM EDT 05/27/2025 3:53 PM EDT us Vane Corley MD LAB BLOOD ORDERABLES Final Re sult Performing Organization Address City/[facility]/ZIP Co de Phone Number [facility] [address] [phone] * (ABNORMAL) Basic Metabolic Panel (05/27/2025 3:47 PM EDT) Sodium 141 136 - 145 meq/L 05/27/2025 4:30 PM EDT [facility] Potassium 5.9(H) 3.4 - 5.1 meq/L 05/27/2025 4:30 PM EDT [facility] CO2 17(L) 22 - 29 meq/L 05/27/2025 4:30 PM EDT [facility] Chloride 112 98 - 112 meq/L 05/27/2025 4:30 PM EDT [facility] Glucose 123(H) 82 - 115 mg/dL 05/27/2025 4:30 PM EDT [facility] BUN 103.5(H) 9.8 - 20.1 mg/dL 05/27/2025 4:30 PM EDT [facility] Creatinine 3.44(H) 0.57 - 1.11 mg/dL 05/27/2025 4:30 PM EDT [facility] BUN/Creatinine 30(H) 8 - 20 05/27/2025 4:30 PM EDT [facility] Calcium 9.7 8.4 - 10.2 mg/dL 05/27/2025 4:30 PM T [facility] Anion Gap 18(H) 4 - 12 05/27/2025 4:30 PM T [facility] eGFR (mL/min/1.73m2) 13(L) >=60 mL/min/1.7 3m2 05/27/2025 4:30 PM EDT [facility] Comment:ESTIMATED GFR IS NOT ACCURATE CREATININE CLEARANCE IN PREDICTING GLOMERULAR FILTRATION RATE. ESTIMATED GFR IS NOT APPLICABLE FOR DIALYSIS PATIENTS. Osmolality Calc 315.1 mOsm/kg 4:30 PM T [facility] Blood Venipuncture / Unknown 05/27/2025 3:47 PM EDT 05/27/2025 3:53 PM EDT Vane Corley MD LAB BLOOD ORDERABLES Final Re sult [facility] [address] [phone] * (ABNORMAL) CBC with automated diff (05/27/2025 3:47 PM EDT) WBC 10.4(H) 4.0 - 10.0 K/ L 05/27/2025 3:57 PM EDT [facility] RBC 1.65(L) 3.93 - 5.22 M/ L 05/27/2025 3:57 PM EDT [facility] Hemoglobin 5.3(LL) 11.2 - 15.7 GM/DL 05/27/2025 3:57 PM EDT [facility] Hematocrit 16.9(L) 34.1 - 44.9 % 05/27/2025 3:57 PM EDT [facility] MCV 102(H) 79 - 95 fL 05/27/2025 3:57 PM EDT [facility] MCH 32.1 25.6 - 32.2 pg 05/27/2025 3:57 PM EDT [facility] MCHC 31.4(L) 32.2 - 35.5 GM/DL 05/27/2025 3:57 PM EDT [facility] RDW 17.2(H) 11.7 - 14.4 % 05/27/2025 3:57 PM EDT [facility] Platelets 219 140 - 375 K/CU MM 05/27/2025 3:57 PM EDT [facility] MPV 10.6 9.4 - 12.3 fL 05/27/2025 3:57 PM EDT [facility] % Neutros 72(H) 34 - 71 % 05/27/2025 3:57 PM EDT [facility] % Lymphs 15(L) 19 - 52 % 05/27/2025 3:57 PM EDT [facility] % Monos 12 5 - 13 % 05/27/2025 3:57 PM EDT [facility] % Eos 0(L) 1 - 6 % 05/27/2025 3:57 PM EDT [facility] % Baso 0 0 - 1 % 05/27/2025 3:57 PM EDT [facility] NRBC Absolute <0.01 0 - 0.012 K/ul 05/27/2025 3:57 PM EDT [facility] # Neutros 7.49(H) 1.56 - 6.13 K/ L 05/27/2025 3:57 PM EDT [facility] # Lymphs 1.55 1.18 - 3.74 K/ L 05/27/2025 3:57 PM EDT [facility] # Monos 1.19(H) 0.24 - 0.86 K/ L 05/27/2025 3:57 PM EDT [facility] # Eos 0.04 0.04 - 0.36 K/ L 05/27/2025 3:57 PM EDT [facility] # Baso <0.03 0.01 - 0.08 K/ L 05/27/2025 3:57 PM EDT [facility] % Imm Grans 0.80(H) 0.01 - 0.43 % 05/27/2025 3:57 PM EDT [facility] # IG 0.08(H) 0.00 - 0.03 K/uL 05/27/2025 3:57 PM EDT [facility] Blood Venipuncture / Unknown 05/27/2025 3:47 PM EDT 05/27/2025 3:53 PM EDT Narrative [facility] - 05/27/2025 3:57 PM EDT [...] MD LAB BLOOD ORDERABLES Final Re sult [facility] [address] [phone] * Prepare RBC: 1 Units (05/27/2025 3:23 PM EDT) Issue Date/Time [id number] [facility] BLOOD [facility] ([place]) Product Identification Red Blood Cells [facility] [place]) Product Code [id number] [facility] [place]) Status Information TRANSFUSED [facility] [place]) Unit Number [id number] [facility] ([place]) Blood Type 5100 [facility] ([place]) Cross Match Results Compatible [facility] ([place]) us Vane Corley MD FS_MODEL_IP_BLOOD BANK PRODUC T ORDERABLES Final Result [facility] ([place]) 1 [facility] [place] [id number], [facility] [phone] documented in this encounter Visit Diagnoses Diagnosis [...] blood sugar is less than 180 between 0779-2355, DO NOT give corrective insulin unless otherwise [...] 2000, Therapeutic Interchange for Formoterol component in [facility] RESPIRATORY THERAPY TREATMENT , What is the respiratory therapy Modality? Small volume Nebulization 2050 (Given - Provider: Geno Pablo) 0749 (Given - Provider: Izaiah Blandon, ECHO)2038 (Given - Provider: Vijaya Velasco RRT) 0821 [...] 2000, Therapeutic Interchange for Mometasone component in [facility] *RESPIRATORY THERAPY TREATMENT*, What is the [...] blood sugar is less than 180 between 9586-1574, DO NOT give corrective insulin unless otherwise [...] Mendez RN) 0506 (Given - Provider: Viri Aleida, RN) 0707 (Not Given - Provider: Charley Ibanez RN - Reason: Other (with Comment) - Comment: potassium 4.6) traZODone (DESYREL) tablet 50 mg 50 mg Every Night, oral, First dose on 05/27/25 at 2100 2051 (Given - Provider: Viri Shin RN) 215 [...] in prn comments), 41-69 mg/dL, Starting on Sat 10 at 1520, For Patients who can take [...] hypertension (sbp greater than 160), Starting on Sat 10 at 1515, Hold if SBP < 100 mmHg, DBP < 50 mmHg, or patient is on pressor. Look-alike/Sound-alike medication ondansetron (ZOFRAN) injection 4 mg(Linked Group 3) 4 mg Every 8 hours PRN, intravenous, nausea, vomiting, Starting on Sat 10 at 1514, Give IV if patient is [...] hours PRN, oral, nausea, vomiting, Starting on Sat 10 at 1514, 1st line. If inadequate response [...] flush documented in this encounter Care Teams Carbon Setter Relationship Specialty Start Date End Date Anand Noble MD [address] [facility] [phone] PCP - General Family Medicine 07/29/23 documented as of this encounter
[2025-06-22 12:59] VITALS: BMI 25.2
--- OUTSIDE RECORDS SUMMARY | 2025-06-22 13:01 | XMS_ITS | Data Portability ---
Author Organization [place] - [facility] & [place] [facility] ADMIN Address [address] [place] [id number] Care Team Providers Care Propeller Inspector Name Role Phone REGAN MARTIN Primary Care Provider [phone] Assessment Encounter Date Assessment Date Assessment LastModified by Organization Details LastModified Time 06/14/2025 06/14/2025 84-year-old female with CKD preparing to being dialysis, DM2, heart failure, chronic anemia, hypothyroidis m, COPD and gastric AVM who presents to the office today with worsening iron deficiency anemia requiring blood transfusion, most recent Hgb 7, and melena. Not available 06/14/2025 19:24:40 Plan of Treatment Reminders Order Date Submit Date Provider Last Modified By Organization Details Last Modified Time Details Appointments SURGERY 15 2024 11:00A M Alka Davis MD Not available Not available Not available Lab None recorded. Referral None recorded. Procedures None recorded. Surgeries None recorded. Imaging US, renal 2021 022 [email or web address] [facility] (Centralized Scheduling), [address] [facility], [place], [address], 06/09/2022 12:04:13 Medication Orders amlodipin e 5 mg tablet 2023 024 [facility] #[id number], [address] [facility], [place], [address], 11/05/2023 09:59:26 Patient TargetsNo targets recorded. Patient InstructionsNo instructions recorded. Reason for Referral None Reported. Results Created Date Observation Date Name Description Value Unit Range Abnormal Flag Note LastModifiedBy Organization Detail LastModifiedTime 11/05/19 24 11/05/2023 elect rocar diogr am No observ ation record ed. [facility] [address], [place], [address], 11/18/2023 12:49:56 11/05/19 24 11/05/2023 elect rocar diogr am No observ ation record ed. [facility] [address], [place], [address], 11/05/2023 14:14:05 Result Notes None recorded. Problems Name Problem SNOMED Code Status Onset Date Resolution Date Notes Provider Name and Address Organization Details Recorded Time Acute on chronic hypoxemic respirator y failure 8127923916245 9100 Active Gladis Sanjuana null, [place] - [facility] [place] & [place] 4 07:38:13 Hypomagnes emia 951527622 Active Gladis Sanjuana null, [place] [facility] [place] [facility] [place] 4 07:38:13 Acute exacerbati on of chronic obstructiv e pulmonary disease 416642773 Active Gladis Sanjuana null, [place] [facility] [place] [facility] [place] 4 07:38:13 Viral respirator y infection 636718237 Active Gladis Sanjuana null, [place] [facility] [place] & [place] 4 07:38:13 Type 1 diabetes mellitus 60087865 Active Gladis Sanjuana [place], [place] [facility] [place] [facility] [place] 4 07:38:14 Organism isolated in blood by culture 8600161908216 107 Active Gladis Sanjuana [place], [place] [facility] [place] & [place] 4 07:38:14 Bacterial pneumonia 25984089 Active Gladis Sanjuana [place] [facility] [place] [facility] [place] 4 07:38:49 Influenza 7918180 Active Gladis Sanjuana [place] [facility] [place] & [place] 4 07:38:49 Chronic renal failure 32768407 Active Gladis Bautistawell null, [place] [facility] [place] & [place] 4 07:38:49 Kidney disease 88753967 Active 2021 Jiachantell Lease null, [place] [facility] [place] [facility] [place] 2 11:04:33 Total urinary incontinen ce 354803736 Active 2021 Jia Leonorase null, [place] [facility] [place] & [place] 2 11:04:45 Malignant neoplasm of urinary bladder 969369082 Active 2022 Roopa Michele null, [place] - [facility] & [place] 3 10:26:54 Nocturia 338882829 Active 2022 Roopadeann Bautista null, [place] - [facility] [place] & [place] 3 10:26:58 Urinary incontinen ce 937848134 Active 2022 Roopadeann up, [place] - [facility] [place] [facility] [place] 3 10:27:02 Slowing of urinary stream 34568573 Active 2022 Roopa Michele null[place] [facility] [place] & [place] 3 10:27:08 Iron deficiency anemia 43425669 Active 2024 Stas Taylor PA-C [address], [place], [address] , [place] - [facility] [place] & [place] 5 19:24:49 Melena 3395777 Active 2024 Stas Taylor PA-C [address], [place], [address] , [place] - [facility] & [place] 5 19:25:14 Acquired arterioven ous malformati on 6427474966293 Active 2024 Stas Taylor PA-C [address] , [place], [address] , [place] - [facility] & [place] 5 19:25:30 Problem Notes Documentation Provider Name and Address Organization Details Recorded Time [employer] Consult Note : Cardiology Consult [facility] Name Lyssa Higgins S Date of Service 0812 [id number] (F) Attending KIKI ELLSWORTH Admitted [id number] Discharged Primary [facility] - Chief Complaint Shortness of breath History of Present Illness 83-year-old female with past medical history significant for coronary artery disease with history of 3 coronary stents in 2001 at the [facility] records not available to us yet, hypertension dyslipidemia diabetes ex-smoker COPD chronic kidney disease with history of temporary dialysis 2 months ago at [facility] as per the patient. It was not true temporary dialysis catheter. Patient admitted for worsening shortness of breath and swelling. She has orthopnea no PND. She has productive cough no hemoptysis no fever no chills no bleeding anywhere. No chest pain. Found to have mildly elevated cardiac biomarkers and treated as non-STEMI with CHF symptoms. Her EKG chronically has left bundle-branch block. On telemetry she is in sinus rhythm. EKG 11/25/23 sinus rhythm first degree AV block with premature atrial complex, left bundle branch block. Abnormal EKG. Echocardiogram done 11/04/2023 normal LV systolic function. No hemodynamically significant valvular heart disease. Reason for Consultation CHF symptoms with mildly elevated cardiac biomarkers. Past Medical History Obstructive sleep apnea syndrome, not using cpap-on oxygen Anemia Chronic obstructive lung disease Diabetic renal disease Reduced mobility Anxiety Acid reflux Hypothyroidism Diabetes mellitus Staphylococcal infectious disease @ 5-6 YEARS AGO, GROIN AREA Hypercholesterolemia Hypertensive disorder Coronary arteriosclerosis Past Surgical History Hemorrhoidectomy Cardiac catheterization Arthroscopy of knee Procedure on patella Appendectomy Hand repair Repair of artery, After Childbirth Cystoscopy and transurethral resection of bladder tumor in 2017 Colonoscopy in 2019 Esophagogastroduodenoscopy in 2019 Social History alcohol use No Known Use 1 of 5 Cardiology Consult [facility] Name Lyssa Higgins S Date of Service 0812 [id number] (F) Attending KIKI ELLSWORTH Admitted [id number] Discharged Primary [facility] - drug use No Known Use marital status Family History Parents Father @ 59 Malignant tumor of lung Mother Myocardial infarction @ 79 Heart disease Allergies SULFA ANTIBIOTICS - Rash, Nausea ERYTHROMYCIN - Rash, Nausea DOXYCYCLINE - Rash, HIVES CODEINE - Nausea LATEX - SKIN IRRITATION ADHESIVES - SKIN IRRITATION CIPROFLOXACIN - red all over Review of Systems Constitutional Weight change, Cough Negative For: Syncope, Fever, Malaise and fatigue Head Negative For: Head injury, Dizziness, Headache, Vertigo Heart Chest tightness, Dyspnea on exertion Negative For: Chest pain, Palpitations, Orthopnea, Paroxysmal nocturnal dyspnea Respiratory Cough, SOB - Shortness of breath, Wheezing, Sputum GI Negative For: Pain, Nausea, Vomiting, Diarrhea, Blood in stool Peripheral Vascular Swelling Negative For: Cyanosis, Leg pain, Leg Ulcer Vital Signs 0801 T 97.5 (L) HR 87 RR 19 BP 148 / 64 O2Sat 93 0759 HR 86 RR 20 0755 O2Sat 92 0445 T 97.2 (L) BP 127 / 61 Intake and Output 2 of 5 Cardiology Consult [facility] Name Lyssa Higgins Date of Service 08 [id number] (F) Attending KIKI ELLSWORTH Admitted [id number] Discharged Primary [facility] - previous current encounter day day cumulative Intake 500 - 500 Output 900 - 900 Balance (-400) - (-400) Physical Exam Narrative Patient seen and examined at the bedside on the telemetry floor. Awake alert oriented x3 not dyspneic not in pain. No events overnight maintaining sinus rhythm on the hall monitor. Diuresed well. General Oriented to person, Oriented to place, Oriented to time Negative For: Respiratory Distress, Orthopnea, Lethargy Neck Negative For: JVD, Bruit, Swelling, Lymphadenopathy Heart Sounds S1-S2 normal systolic murmur present. No gallop or rub. Respiratory Bilateral reduced air entry at the bases. Few scattered rhonchi and crepitations. Abdomen Soft lax nontender bowel sounds are positive. Peripheral Vascular / Extremities 1+ edema bilaterally pulses are positive and equal bilaterally. Lab Results 0602 Bedside Testing GLUMETER 233 (H) 0553 Troponins TROP FU 440 (H) 234 Chemistry NA 137 K 3.5 (L) CHLORIDE 99 CO2 32.2 (H) AGAP 9.3 GLUC 225 (H) BUN 35 (H) CREAT 2.3 (H) GFR Tnp CALCIUM 8.5 MG 1.9 234 Troponins TROP FU 585 (H) 234 Hematology WBC 5.8 RBCS 2.5 (L) HGB 7.4 (L) HCT 23.2 (L) MCV 91.7 MCH 29.2 MCHC 31.9 (L) RDW 15.2 (H) PLT S 315 MPV 9.8 (H) NEUT% 81.6 (H) LYMPH% 9.0 (L) MONO% 9.1 EOS% 0.0 (L) BASO% 0.0 (L) IG% 0.3 NRBC% 0.0 NEUT# 4.7 LYMPH# 0.5 (L) MONO# 0.5 EOS# 0.0 BASO# 0.0 IG# 0.02 NRBC# 0.00 MANDIFF No 3 Troponins TROP FU 521 (H) 3 of 5 Cardiology Consult [facility] Name Lyssa Higgins Date of Service 08 [id number] (F) Attending KIKI ELLSWORTH Admitted [id number] Discharged Primary [facility] - 2230 Bedside Testing GLUMETER 307 (H) 2114 Troponins TROP 582 (H) 1909 Troponins TROP FU 648 (H) [address] Scanning [id number] 0917 Rad Diagnostic X-Ray [id number] 0915 Urinalysis COLOR Yellow APPEAR Clear GLUCOSE Norm BILIRUB Negative KETONE Negative SP GRAV 1.020 BLOOD 10 PH 5 PROTEIN 500 UROBIL Norm NITRITE Negative ULEU Negative CULTURE No RBC Rare WBC Rare EPITH Rare BACTERIA None Seen 0855 Troponins TROP FU 262 (H) Procedures and Surgeries None Assessment/Plan 1. 83-year-old female fluid overloaded with normal systolic function likely diastolic heart failure and renal failure. Mostly her symptoms secondary to her renal failure she had a history of dialysis in the past. We will continue diuresis we will consider IV Lasix. Recommend Nephrology consultation and evaluation for the patient. She responded to Bumex IV. Swelling has improved and breathing has improved. We will continue follow up. We will repeat echocardiogram. 2. History of coronary artery disease with history of coronary stents in 2001. Mild elevation in cardiac biomarkers likely secondary to heart failure and renal impairment. Trending down. We will treat medically we will consider a stress test with the patient is stabilized. 3. Hypertension controlled continue medication. 4. Dyslipidemia on statin. 5 .COPD ex-smoker.. 6. Diabetes follow up hemoglobin A1c. 7. History of chronic kidney disease stage 3 4 of 5 Cardiology Consult [facility] Name Lyssa Higgins Date of Service 0812 [id number] (F) Attending KIKI ELLSWORTH Admitted [id number] Discharged Primary [facility] - with history of dialysis temporarily 2 months ago. Active Medications melatonin 5 MG PO BEDTIME cefTRIAXone (ROCEPHIN) 1 GM IV Q24H 100 ML/HR sodium chloride 0.9% MB+ 50 ML levothyroxine (SYNTHROID) 75 MCG PO ACB dextrose 50% SYRINGE (25 GM) 25 ML IV PUSH PRN for HYPOGLYCEMIA IF BLOOD SUGAR < 70 insulin lispro (HumaLOG) PEN 100 UNIT/ML Sliding Scale Dose SUBCUT SSPRN for HYPERGLYCEMIA atorvastatin (LIPITOR) 80 MG PO DAILY bumetanide (BUMEX) 1 MG PO DAILY amLODIPine (NORVASC) 5 MG PO DAILY amlodipine bsylate acetaminophen (TYLENOL) 1000 MG PO BID docusate sodium (COLACE) 100 MG PO DAILYPRN carvedilol (COREG) 12.5 MG PO BID pantoprazole (PROTONIX) 40 MG PO DAILY insulin glargine-yfgn 100 UNIT/ML 20 UNT SUBCUT BEDTIME check glucose every am. If morning (Fasting) glucose is >150 traZODone (DESYREL) 25 MG PO BEDTIME morphine sulfate (PF) 2 MG/ML 2 MG IV PUSH Q6HPRN for CHEST PAIN aspirin (ARTURO) 325 MG PO DAILY nitroglycerin (NITROSTAT) 0.4 MG SUBLING [id number] for CHEST PAIN MIRALAX PACKET 17 GM PO DAILYPRN for CONSTIPATION DUONEB 0.5-2.5 MG/3 ML 3 ML INHALED [id number] for SHORTNESS OF BREATH DUONEB 0.5-2.5 MG/3 ML 3 ML INHALED RTQ6H sodium chloride 0.9% FLUSH 10 ML IV PUSH PRN for FLUSH IV LINE NOZIN [employer] POPSWAB 1 EA NASAL BID APPLY TO EACH NOSTRIL ondansetron (ZOFRAN) INJ 4 MG/2 ML 4 MG IV PUSH Q4HPRN for NAUSEA VOMITING furosemide (LASIX) 40 MG/4 ML 40 MG IV PUSH DAILY sodium chloride 0.9% FLUSH 10 ML IV PUSH PRN for FLUSH IV LINE sodium chloride 0.9% FLUSH 10 ML IV PUSH Q8HWA heparin sodium (PORCINE) 5000 UNIT/ML 5000 UNT SUBCUT Q12H Electronically signed by SRAVANI WILKINSON on 0939 5 of 5 CC'ed Logic: Ordering Provider: SRAVANI DESAI Consulting Provider: SRAVANI Wei [facility] [place] 11/27/2023 11:20:03 [employer] Consult Note : Cardiology Consult [facility] Name Lyssa Higgins Date of Service 2347 [id number] (F) Attending KIKI ELLSWORTH Admitted [id number] Discharged Primary [facility] - Chief Complaint Shortness of breath History of Present Illness 83-year-old female with past medical history significant for coronary artery disease with history of 3 coronary stents in 2002 at the [facility] records not available to us yet, hypertension dyslipidemia diabetes ex-smoker COPD chronic kidney disease with history of temporary dialysis 2 months ago at [facility] as per the patient. It was not true temporary dialysis catheter. Patient admitted for worsening shortness of breath and swelling. She has orthopnea no PND. She has productive cough no hemoptysis no fever no chills no bleeding anywhere. No chest pain. Found to have mildly elevated cardiac biomarkers and treated as non-STEMI with CHF symptoms. Her EKG chronically has left bundle-branch block. On telemetry she is in sinus rhythm. Patient had worsening respiratory distress this morning and she was transferred to the ICU and intubated. Patient seen and examined this morning in the CT scan suit. she is intubated. I had a lengthy discussion with her daughter who was in her room today. I discussed with them and the hospitalist client professional the results of her echocardiogram that was done yesterday and the finding of large left side pleural effusion. EKG 11/25/23 sinus rhythm first degree AV block with premature atrial complex, left bundle branch block. Abnormal EKG. Echocardiogram done 11/04/2023 normal LV systolic function. No hemodynamically significant valvular heart disease. Reason for Consultation CHF symptoms with mildly elevated cardiac biomarkers. Past Medical History Obstructive sleep apnea syndrome, not using cpap-on oxygen Anemia Chronic obstructive lung disease Diabetic renal disease Reduced mobility Anxiety Acid reflux Hypothyroidism Diabetes mellitus Staphylococcal infectious disease @ 5-6 YEARS AGO, GROIN AREA Hypercholesterolemia Hypertensive disorder Coronary arteriosclerosis Past Surgical History Hemorrhoidectomy Cardiac catheterization Arthroscopy of knee Procedure on patella Appendectomy Hand repair Repair of artery, After Childbirth Cystoscopy and transurethral resection of bladder tumor in 2017 Colonoscopy in 2019 Esophagogastroduodenoscopy in 2019 1 of 6 Cardiology Consult [facility] Name Lyssa Higgins Date of Service 6908 [id number] (F) Attending KIKI ELLSWORTH Admitted [id number] Discharged Primary [facility] - Social History alcohol use No Known Use drug use No Known Use marital status Family History Parents Father @ 59 Malignant tumor of lung Mother Myocardial infarction @ 79 Heart disease Allergies SULFA ANTIBIOTICS - Rash, Nausea ERYTHROMYCIN - Rash, Nausea DOXYCYCLINE - Rash, HIVES CODEINE - Nausea LATEX - SKIN IRRITATION ADHESIVES - SKIN IRRITATION CIPROFLOXACIN - red all over Review of Systems Narrative unable to obtain. patient intubated sedated. Vital Signs 2333 HR 71 RR 16 O2Sat 99 2215 HR 65 RR 16 BP 119 / 58 (L) O2Sat 99 2200 BP 126 / 58 (L) 1905 T 100.0 1825 T 100.6 (H) Intake and Output previous current encounter day day cumulative Intake 300 1061 1861 Output - 675 1575 Balance 300 386 286 2 of 6 Cardiology Consult [facility] Name Lyssa Higgins Date of Service 2347 [id number] (F) Attending KIKI ELLSWORTH Admitted [id number] Discharged Primary [facility] - Physical Exam Narrative Patient seen and examined at the CT suit. intubated sedated. General sedated Neck Negative For: JVD, Bruit, Swelling, Lymphadenopathy Heart Sounds S1, S2 S1, S2 normal. systolic murmur present. no gallop or rub. Respiratory bilaterally reduced air entry. Abdomen soft bowel sounds positive. Peripheral Vascular / Extremities Positive For: Lower extremity edema. Lab Results 2330 Rad Diagnostic X-Ray [id number] 1655 Bedside Testing GLUMETER 73 1354 Blood Bank STATUS Transfused COMPAT Compatible UNIT TYP O Pos UNIT # [id number] DT/TM [id number] PRD CODE [id number] PROD ID Red Blood Cells VOLUME 350 SPEC EXP [id number] 1344 Hematology HGB 6.3 (L) HCT 20.0 (L) 133[address] THORA 1314 Body Fluid SOURCE Pleural COLOR Yellow APPEAR Clear RBC 2940 WBC 193 (H) COMMENT Hemocytometer [address] Scanning [id number] 1312 Bedside Testing GLUMETER 71 1252 3 of 6 Cardiology Consult [facility] Name Lyssa Higgins Date of Service 2347 [id number] (F) Attending KIKI ELLSWORTH Admitted [id number] Discharged Primary [facility] - Special Chemistry LACTATE 1.0 125 Chemistry NA 141 K 3.4 (L) CHLORIDE 100 CO2 35.3 (H) AGAP 9.1 GLUC 76 BUN 36 (H) CREAT 2.2 (H) GFR Tnp CALCIUM 8.5 MG 1.9 1251 Hematology WBC 9.7 RBCS 2.4 (L) HGB 6.6 (L) HCT 22.2 (L) MCV 94.5 MCH 28.1 MCHC 29.7 (L) RDW 15.7 (H) PLT S 320 MPV 9.4 NEUT% 75.5 (H) LYMPH% 10.7 (L) MONO% 12.9 (H) EOS% 0.4 (L) BASO% 0.1 (L) IG% 0.4 NRBC% 0.0 NEUT# 7.3 (H) LYMPH# 1.0 (L) MONO# 1.3 (H) EOS# 0.0 BASO# 0.0 IG# 0.04 NRBC# 0.00 MANDIFF No 1014 Blood Gas LIZBETH Yes LIZBETH Positive A-PH 7.38 PCO2 55.5 (H) PO2 77.9 (L) HCO3 32.3 (H) BE 6.5 (H) O2 SAT 95.1 FIO2 100 SITE Right Radial TEMP 98.6 O2 MODE Ventilator VMODE Volume Ac TV 500 PEEP 5 A-SETRAT 16 A-TOTRAT 16 1000 Chemistry GLUC 148 (H) TP 5.6 (L) LDH 221 (H) 913 Chemistry NA 140 K 3.6 CHLORIDE 100 CO2 31.4 AGAP 12.2 GLUC 147 (H) BUN 36 (H) CREAT 2.2 (H) GFR Tnp TP 5.1 (L) ALB 2.5 (L) GLOB 2.6 ALB/GLOB 1.0 CALCIUM 8.3 (L) BILI TOT 0.50 AST 15 ALT 17 ALP 67 NTPROBNP 52524.00 (H) PCT 1.90 (H) 913 Troponins TROP FU 207 (H) 913 Hematology WBC 13.0 (H) RBCS 2.5 (L) HGB 7.0 (L) HCT 23.5 (L) MCV 95.9 MCH 28.6 MCHC 29.8 (L) RDW 15.6 (H) PLT S 354 MPV 9.8 (H) NEUT% 82.8 (H) LYMPH% 5.1 (L) MONO% 10.5 EOS% 0.7 (L) BASO% 0.2 IG% 0.7 NRBC% 0.0 NEUT# 10.7 (H) LYMPH# 0.7 (L) MONO# 1.4 (H) EOS# 0.1 BASO# 0.0 IG# 0.09 NRBC# 0.00 MANDIFF No 912 Special Chemistry LACTATE 1.2 0913 Rad Diagnostic X-Ray [id number] 0838 Blood Gas LIZBETH Yes LIZBETH Positive A-PH 7.28 (L) PCO2 68 (H) PO2 <58 (L) HCO3 31.5 (H) BE 3.8 (H) O2 SAT 83.5 (L) FIO2 100 SITE Left Radial O2 MODE CPAP/Bipap BIPAP IN 18 BIPAP EX 10 0618 Bedside Testing GLUMETER 115 (H) 4 of 6 Cardiology Consult [facility] Name Lyssa Higgins Date of Service 7168 [id number] (F) Attending KIKI ELLSWORTH Admitted [id number] Discharged Primary [facility] - Procedures and Surgeries None Assessment/Plan 1. 83-year-old female fluid overloaded with normal systolic function likely diastolic heart failure and renal failure. Mostly her symptoms secondary to her renal failure she had a history of dialysis in the past. We will continue diuresis we will consider IV Lasix. Nephrology following. Repeat echo showed normal systolic function. 2. bilateral large pleural effusion causing respiratory distress. recommended thoracentesis. 3. Intubated sedated. due to respiratory distress. 4. History of coronary artery disease with history of coronary stents in 2001. Mild elevation in cardiac biomarkers likely secondary to heart failure and renal impairment. Trending down. We will treat medically we will consider a stress test with the patient is stabilized. 3. Hypertension controlled continue medication. 4. Dyslipidemia on statin. 5 .COPD ex-smoker.. 6. Diabetes. 7. History of chronic kidney disease stage 3 with history of dialysis temporarily 2 months ago. Active Medications acetaminophen (TYLENOL) 650 MG RECTAL Q6HPRN for TEMP > 100.4 ALBUMIN HUMAN 25% 100 ML IV Q12H 100 ML/HR PLEASE SPECIFY THE NUMBER OF BOTTLES TO INFUSE. linezolid (ZYVOX) 600 MG/300 ML 600 MG IV Q12H 150 ML/HR sodium phosphate 15 MMOL/250ML Dose Range IV SS SSPRN for PER PROTOCOL PHOS-NAK PACKET 280-160-250 MG Dose Range PO SSPRN for OTHER (SEE COMMENT) GIVE 1 PACKET EVERY 6 HOURS X2 DOSES magnesium sulfate PREMIX 2 GM/50 ML Dose Range IV SS SSPRN for OTHER (SEE COMMENT) magnesium oxide (MAG-OX) Dose Range PO SSPRN for PER PROTOCOL potassium chloride PREMIX 10 MEQ/100 ML Dose Range IV SS SSPRN for OTHER (SEE COMMENT) *FOR PATIENTS WITH CVC/PICC LINES ONLY* PRN FOR HYPOKALEMIA potassium chloride (K-DUR) Dose Range PO SSPRN for OTHER (SEE COMMENT) potassium bicarb (EFFER-K) Dose Range PO SSPRN for OTHER (SEE COMMENT) insulin glargine-yfgn 100 UNIT/ML 15 UNT SUBCUT BEDTIME check glucose every am. If morning (Fasting) glucose is >150 dextrose 50% SYRINGE (25 GM) 25 ML IV PUSH PRN for HYPOGLYCEMIA IF BLOOD SUGAR < 70 insulin lispro (HumaLOG) PEN 100 UNIT/ML Sliding Scale Dose SUBCUT SSPRN for HYPERGLYCEMIA sodium chloride 0.9% 250 ML IV Continuous 15 ML/HR FOR IV ACCESS IF NEEDED. chlorhexidine (PERIDEX) 0.12% 15 ML PO BID 5 of 6 Cardiology Consult [facility] Name Lyssa Higgins Date of Service 2347 [id number] (F) Attending KIKI ELLSWORTH Admitted [id number] Discharged Primary [facility] - artificial tear (REFRESH)OPHTH 1 LORRI EACH EYE BID sodium chloride FOR INH 0.9% 3 ML PER TUBE PRN for OTHER (SEE COMMENT) ENDOTRACHIAL TUBE LAVAGE & SUCTION cefepime (MAXIPIME) 1 GM IV Q12H 100 ML/HR RX RENAL DOSING 0.9% 50 ML midazolam (VERSED) DRIP 100 MG/100ML 100 MG IV TITRATEPRN for SEDATION TOTAL VOLUME = 100 ML CONCENTRATION = 1 MG/ML *RN MAY ALTER THE TITRATION SCHEDULE, RATE, OR STOP MEDICATION IF PATIENT BECOMES HEMODYNAMICALLY UNSTABLE.* [place] Agitation-Sedation Scale: +4=Combative or violent, immediate danger to staff. +3=Very agitated; Pulls on or removes tubes or catheters, agressive to staff. +2=Agitated; Frequent nonpurposeful movement or patient-ventilator dyssynchrony. +1=Restless; Anxious or apprehensive but movements not aggressive or vigorous. 0=Alert and calm -1=Drowsy; Not fully alert, sustained (>10 seconds) awakening, eye contact to voice. -2=Light Sedation; Briefly (<10 seconds) awakens with eye contact to voice. -3=Moderate Sedation; Any movement (but no eye contact) to voice. -4=Deep Sedation; No response to voice, any fentaNYL (SUBLIMAZE) 1000 MCG/100ML 100 ML IV TITRATEPRN for PAIN TOTAL VOLUME = 100ML CONCENTRATION = 10 MCG/ML *RN MAY ALTER THE TITRATION SCHEDULE, RATE, OR STOP MEDICATION IF PATIENT BECOMES HEMODYNAMICALLY UNSTABLE* MIRALAX PACKET 17 GM PO DAILYPRN for CONSTIPATION bumetanide (BUMEX) 1 MG/4 ML 2 MG IV PUSH Q8H spironolactone (ALDACTONE) 12.5 MG PO DAILY PHARMACY WILL SUPPLY SPLIT TABLET docusate sodium (COLACE) 100 MG PO DAILY MIRALAX PACKET 17 GM PO DAILY melatonin 5 MG PO BEDTIME levothyroxine (SYNTHROID) 75 MCG PO ACB dextrose 50% SYRINGE (25 GM) 25 ML IV PUSH PRN for HYPOGLYCEMIA IF BLOOD SUGAR < 70 atorvastatin (LIPITOR) 80 MG PO DAILY acetaminophen (TYLENOL) 1000 MG PO BID carvedilol (COREG) 12.5 MG PO BID pantoprazole (PROTONIX) 40 MG PO DAILY morphine sulfate (PF) 2 MG/ML 2 MG IV PUSH Q6HPRN for CHEST PAIN aspirin (ARTURO) 325 MG PO DAILY nitroglycerin (NITROSTAT) 0.4 MG SUBLING [id number] for CHEST PAIN DUONEB 0.5-2.5 MG/3 ML 3 ML INHALED [id number] for SHORTNESS OF BREATH sodium chloride 0.9% FLUSH 10 ML IV PUSH PRN for FLUSH IV LINE NOZIN [employer] POPSWAB 1 EA NASAL BID APPLY TO EACH NOSTRIL ondansetron (ZOFRAN) INJ 4 MG/2 ML 4 MG IV PUSH Q4HPRN for NAUSEA VOMITING sodium chloride 0.9% FLUSH 10 ML IV PUSH Q8HWA heparin sodium (PORCINE) 5000 UNIT/ML 5000 UNT SUBCUT Q12H Electronically signed by SRAVANI WILKINSON on 2358 6 of 6 CC'ed Logic: Ordering Provider: SRAVANI DESAI Consulting Provider: ASTRID Carlton [facility] [place] 11/30/2023 09:22:47 Infectious Disease Specialis t Consult Note : Infectious Disease Consult [facility] Name Lyssa Higgins Date of Service 0854 [id number] (F) Attending KIKI ELLSWORTH Admitted [id number] Discharged Primary [facility]ICA [facility] - Chief Complaint Reason for consult: Pneumonia Requesting physician: Corey Vazquez MD HPI / Subjective This is an 83-year-old white female past medical history of diabetes mellitus, hypertension, reported COPD, hypothyroidism, CKD, and congestive heart failure. She presented to the hospital with several days of shortness of breath. I am consulted for pneumonia. Apparently, the patient originally presented to the hospital on November 24 for shortness of breath. Her condition precipitously worsened on November 26. She required intubation and mechanical ventilation; she also underwent a diagnostic thoracentesis that. She is currently in the ICU on the ventilator 28% FiO2 with a PEEP of 5. She has not on pressors. She recently had an outside hospital admission requiring a brief course of dialysis for renal failure. Past Medical History Obstructive sleep apnea syndrome, not using cpap-on oxygen Anemia Chronic obstructive lung disease Diabetic renal disease Reduced mobility Anxiety Acid reflux Hypothyroidism Diabetes mellitus Staphylococcal infectious disease @ 5-6 YEARS AGO, GROIN AREA Hypercholesterolemia Hypertensive disorder Coronary arteriosclerosis Past Surgical History Hemorrhoidectomy Cardiac catheterization Arthroscopy of knee Procedure on patella Appendectomy Hand repair Repair of artery, After Childbirth Cystoscopy and transurethral resection of bladder tumor in 2017 Colonoscopy in 2019 Esophagogastroduodenoscopy in 2019 Allergies SULFA ANTIBIOTICS - Rash, Nausea ERYTHROMYCIN - Rash, Nausea DOXYCYCLINE - Rash, HIVES CODEINE - Nausea LATEX - SKIN IRRITATION ADHESIVES - SKIN IRRITATION CIPROFLOXACIN - red all over Social History alcohol use No Known Use drug use No Known Use 1 of 6 Infectious Disease Consult [facility] Name Lyssa Higgins Date of Service 0854 [id number] (F) Attending KIKI ELLSWORTH Admitted [id number] Discharged Primary VERONICA SPEARS - marital status Family History Parents Father @ 59 Malignant tumor of lung Mother Myocardial infarction @ 79 Heart disease Review of Systems Narrative Unable to obtain Physical Exam Vital Signs 0800 HR 59 RR 14 BP 155 / 68 O2Sat 98 MBP 98 0530 O2PCT 28 0317 T 97.5 (L) 0009 T 97.9 (L) 1926 T 97.4 (L) 1616 T 97.8 (L) All vital signs above reviewed General Awake, Alert, Well nourished, Appearance consistent with age Negative For: Acute respiratory distress, Lethargic, Coma She is on the ventilator 28% FiO2 with a PEEP of 5 HEENT Head Normocephalic Negative For: Head Injury Eyes Eye movements normal, Pupils equal, react to light and accommodation Negative For: Conjunctival Erythema Mouth and Throat She is orotracheally intubated Neck Supple Negative For: Nuchal rigidity Respiratory 2 of 6 Infectious Disease Consult [facility] Name Lyssa Higgins Date of Service 0854 [id number] (F) Attending KIKI ELLSWORTH Admitted [id number] Discharged Primary VERONICA SPEARS - Symmetry of chest movement Negative For: Respiratory distress, Accessory Muscle Use Cardiovascular Normal first heart sound, S>1<, Normal second heart sound, S>2<, Heart Rhythm Regular, Regular Rate Negative For: Systolic murmur, Diastolic Murmur, Gallop Right arm PICC line present Abdomen Abdomen soft, Flat Negative For: Abdominal tenderness, Guarding, Distention -DISPERSION MIXER/Female Normal external female genitalia; Rosas catheter present Musculoskelatal Normal Tone, Normal strength Negative For: Traumatic injury, Joint swelling Peripheral Vascular/Extremities Negative For: Gangrene, Discoloration of skin, Traumatic injury Neurological Cranial nerves 2-12 are grossly intact Psychiatric Unable to assess Skin/Integumentary General Skin Appearance Negative For: Nonpitting edema, Pitting edema, Dehydrated, Diaphoresis, Telangiectasis Home Medications acetaminophen (TYLENOL) Dose: 1000 MG BY MOUTH TWICE A DAY amlodipine 5 mg tablet Dose: 1 TAB BY MOUTH ONCE DAILY aspirin 81 mg tablet, delayed release (enteric coated) Dose: 1 TAB BY MOUTH ONCE DAILY atorvastatin 80 mg tablet Dose: 80 MCG BY MOUTH ONCE DAILY bumetanide 1 mg tablet Dose: 1 TAB BY MOUTH ONCE DAILY carvedilol 12.5 mg tablet Dose: 12.5 MG BY MOUTH TWICE A DAY carvedilol 3.125 mg tablet Dose: 1 TAB BY MOUTH TWICE A DAY WITH MEALS docusate sodium (COLACE) Dose: 100 MG BY MOUTH ONCE DAILY NEEDED duloxetine 30 mg Capsule Dose: 30 MG BY MOUTH ONCE DAILY ergocalciferol (vitamin D2) (bulk) 1.25 mg capsule Dose: 1.25 MG BY MOUTH ONCE A WEEK ON EMPTY STOMACH ferrous gluconate 324 mg (37.5 mg iron) tablet Dose: 324 MG BY MOUTH ONCE DAILY fluticasone propionate 50 mcg/actuation spray, suspension Dose: 1 SPR ONCE DAILY furosemide 80 mg tablet Dose: 40 MG BY MOUTH ONCE DAILY hydrOXYzine (ATARAX) Dose: 10 MG BY MOUTH ONCE DAILY 3 of 6 Infectious Disease Consult [facility] Name Lyssa Higgins Date of Service 0854 [id number] (F) Attending KIKI ELLSWORTH Admitted [id number] Discharged Primary VERONICA SPEARS - insulin glargine U-300 conc 300 unit/mL (1.5 mL) Insulin Pen Dose: SUBCUTANEOUS insulin glargine-yfgn 100 UNIT/ML Dose: 20 UNT SUBCUTANEOUS AT BEDTIME ipratropium bromide 21 mcg (0.03 %) spray, non-aerosol Dose: 2 SPR TWICE A DAY levothyroxine 75 mcg capsule Dose: 75 MCG BY MOUTH BEFORE BREAKFAST magic mouthwash Dose: 10 ML BY MOUTH FOUR TIMES A DAY NEEDED Novolog U-100 Insulin aspart 100 unit/mL solution Dose: SUBCUTANEOUS nystatin (MYCOSTATIN) 407841 UNIT/ML Dose: 5 ML BY MOUTH THREE TIMES A DAY pantoprazole 40 mg tablet Dose: 40 MG BY MOUTH ONCE DAILY sodium bicarbonate 650 mg tablet Dose: 650 MG BY MOUTH TWICE A DAY trazodone 50 mg tablet Dose: 25 MG BY MOUTH AT BEDTIME Wixela Inhub Inhalation Aerosol Powder Breath Activated 100-50 MCG/ACT Dose: 1 PUF INHALED TWICE A DAY Lab Results 0237 Chemistry NA 142 K 3.0 (L) CHLORIDE 110 (H) CO2 29.0 AGAP 6.0 GLUC 98 BUN 31 (H) CREAT 2.0 (H) GFR Tnp TP 5.2 (L) ALB 2.2 (L) GLOB 3.0 ALB/GLOB 0.7 CALCIUM 7.6 (L) BILI TOT 0.50 AST 17 ALT 7 ALP 46 PHOS 2.6 MG 1.5 (L) NTPROBNP 6825.00 (H) FERR 192 0237 Hematology WBC 4.0 RBCS 3.1 (L) HGB 8.7 (L) HGB 8.7 (L) HGB 8.6 (L) HCT 26.8 (L) HCT 26.8 (L) HCT 27.0 (L) MCV 86.5 MCH 28.1 MCHC 32.5 RDW 17.2 (H) PLT S 251 MPV 10.2 (H) MANDIFF No 0910 Serology OCC BLD Positive LOT# [id number] EXP DATE 09/2025 INT POS Ok INT NEG Ok OCDEVEXP 04/2026 OCDEVLOT [id number] 1313 Microbiology SOURCE Pleural GRMSTN 1 N/A MORPH 1 N/A QUANT 1 None Seen WBC Occasional EPITH Few YEAST No Yst Seen CULFLUID No growth 48 hours (Preliminary) 1313 Body Fluid SOURCE Pleural COLOR Yellow APPEAR Clear RBC 2940 WBC 193 (H) COMMENT Hemocytometer 0917 Microbiology CULSPTM Light growth yeast observed (Preliminary) 2240 Biofire ADENOVIR Not Detected RP BPP Not Detected COR 229E Not Detected COR HKU1 Not Detected COR NL63 Not Detected COR OC43 Not Detected METAPNEU Not Detected RHIN/ENT Not Detected 4 of 6 Infectious Disease Consult [facility] Name Lyssa Higgins Date of Service 0854 [id number] (F) Attending KIKI THENDREX Admitted [id number] Discharged Primary VERONICA SPEARS - FLU A Not Detected FLUA/H1 N/A H1-2009 N/A FLU A/H3 N/A FLU B Not Detected PARA 1 Not Detected PARA 2 Not Detected PARA 3 Not Detected PARA 4 Not Detected RSV Not Detected BPERTUSS Not Detected C PNEUMO Not Detected M PNEUMO Not Detected RP COV2 Not Detected 0915 Microbiology CULCCUR Scant growth - mixed urogenital miguel a 0731 Microbiology CULBLD No growth at 72 hours (Preliminary) 0725 Microbiology CULBLDER No growth at 72 hours (Preliminary) 07 Biofire ADENOVIR Not Detected RP BPP Not Detected COR 229E Not Detected COR HKU1 Not Detected COR NL63 Not Detected COR OC43 Not Detected METAPNEU Not Detected RHIN/ENT Not Detected FLU A Not Detected FLUA/H1 N/A H1-2009 N/A FLU A/H3 N/A FLU B Not Detected PARA 1 Not Detected PARA 2 Not Detected PARA 3 Not Detected PARA 4 Not Detected RSV Not Detected BPERTUSS Not Detected C PNEUMO Not Detected M PNEUMO Not Detected RP COV2 Not Detected Lab Review Labratory values reviewed Imaging Results 11/27/2023 CT scan of the lungs personally reviewed and interpreted-extensive bilateral infiltrates with bilateral moderate pleural effusions Impression High troponin I level Acute hypoxemic respiratory failure Pneumonia Congestive heart failure Recommendations Assessment: Acute extensive bilateral community-acquired pneumonia complicated by a congestive heart failure exacerbation and hypoxemic respiratory failure requiring mechanical ventilation. It is unclear if the bilateral pleural effusions are related to congestive heart failure or are parapneumonic related to the pneumonia. I favor these are related to the congestive heart failure. The exact pathogen causing the pneumonia is not known. The RVP panel is negative x2, the sputum culture reveals only normal miguel a, and her blood cultures are negative. Plan: Since no resistant organism has been isolated, I am going to deescalate her antibiotics to ceftriaxone 2 g intravenously per day plus azithromycin 500 mg intravenously Q 24 hours. I confirmed she does not have a severe allergy to macrolides. I will check a Legionella urinary antigen. The length of antibiotic therapy is to be determined. Obviously, I would like for her to improve further and be off the ventilator with minimal oxygen supplementation. In addition, depending on the pleural fluid studies, she may need a more extended course of antibiotic therapy. I will follow her basic laboratory work and inflammatory markers closely. Discussed in detail with ICU staff. Discussed in detail with Dr. Vazquez. 5 of 6 Infectious Disease Consult [facility] Name Lyssa Higgins Date of Service 0854 [id number] (F) Attending KIKI ELLSWORTH Admitted [id number] Discharged Primary VERONICA SPEARS - Time spent with Patient 30 minutes spent in critical care Electronically signed by CARROLL WILKINSON on 0916 6 of 6 CC'ed Logic: Ordering Provider: CARROLL Chun [facility] 11/30/2023 10:12:51 Encounter Note : GI Consult History and Physical [facility] Name Lyssa Higgins Date of Service 0837 [id number] (F) Attending KIKI ELLSWORTH Admitted [id number] Discharged Primary VERONICA SPEARS - Addendum I have personally performed a face to face evaluation on this patient. I agree with Mr. Sellers history, physical examination, assessment and plan as documented above. My findings are as follows: Ms. Higgins is an 84 yo female admitted with respiratory failure. She has significant anemia without overt bleeding. At this point she is high risk for endsocopy. Will continue PPI. Observe. Consider outpatient endoscopy when recovered. Electronically signed by TRACIE WILKINSON on 1823 Chief Complaint Nausea History of Present Illness Ms. Higgins is a pleasant 83-year-old female with past medical history of gastric AVM, adenomatous colon polyps, CHF, myocardial infarction, CABG x3, cardiac stenting, COPD, and chronic kidney disease who was admitted on November 25, 2023 with dyspnea on exertion and fluid overload. Hemoglobin on presentation was decreased at 7.7 with normal MCV. Over the course of her hospitalization this decreased to 6.3, requiring transfusion of 3 units PRBCs. Ultimately, the patient has required intubation due to acute respiratory failure with pleural effusions and bilateral pneumonia. She has undergone right-sided thoracentesis with 1 L fluid removed. She was successfully extubated yesterday. GI Services has been consulted regarding anemia with positive occult stool earlier in her hospital course. Currently, the patient is sitting up in bed. She complains of nausea and generalized discomfort. She denies hematemesis, melena, or hematochezia. H & H is stable today at 11.3. Left-sided thoracentesis planned for later today. Reason for Consultation Anemia Past Medical History Obstructive sleep apnea syndrome, not using cpap-on oxygen Anemia Chronic obstructive lung disease Diabetic renal disease Reduced mobility Anxiety Acid reflux Hypothyroidism Diabetes mellitus Staphylococcal infectious disease @ 5-6 YEARS AGO, GROIN AREA Hypercholesterolemia Hypertensive disorder Coronary arteriosclerosis Past Surgical History Hemorrhoidectomy Cardiac catheterization Arthroscopy of knee Procedure on patella Appendectomy 1 of 7 GI Consult History and Physical [facility] Name Lyssa Higgins Date of Service 0837 [id number] (F) Attending KIKI ELLSWORTH Admitted [id number] Discharged Primary VERONICA SPEARS - Hand repair Repair of artery, After Childbirth Cystoscopy and transurethral resection of bladder tumor in 2017 Colonoscopy in 2019 Esophagogastroduodenoscopy in 2019 Social History alcohol use No Known Use drug use No Known Use marital status Family History Parents Father @ 59 Malignant tumor of lung Mother Myocardial infarction @ 79 Heart disease Allergies SULFA ANTIBIOTICS - Rash, Nausea ERYTHROMYCIN - Rash, Nausea DOXYCYCLINE - Rash, HIVES CODEINE - Nausea LATEX - SKIN IRRITATION ADHESIVES - SKIN IRRITATION CIPROFLOXACIN - red all over Home Medications acetaminophen (TYLENOL) Dose: 1000 MG BY MOUTH TWICE A DAY amlodipine 5 mg tablet Dose: 1 TAB BY MOUTH ONCE DAILY aspirin 81 mg tablet, delayed release (enteric coated) Dose: 1 TAB BY MOUTH ONCE DAILY atorvastatin 80 mg tablet Dose: 80 MCG BY MOUTH ONCE DAILY bumetanide 1 mg tablet Dose: 1 TAB BY MOUTH ONCE DAILY carvedilol 12.5 mg tablet Dose: 12.5 MG BY MOUTH TWICE A DAY carvedilol 3.125 mg tablet Dose: 1 TAB BY MOUTH TWICE A DAY WITH MEALS docusate sodium (COLACE) Dose: 100 MG BY MOUTH ONCE DAILY NEEDED duloxetine 30 mg Capsule Dose: 30 MG BY MOUTH ONCE DAILY ergocalciferol (vitamin D2) (bulk) 1.25 mg capsule Dose: 1.25 MG BY MOUTH ONCE A WEEK ON EMPTY STOMACH ferrous gluconate 324 mg (37.5 mg iron) tablet Dose: 324 MG BY MOUTH ONCE DAILY fluticasone propionate 50 mcg/actuation spray, suspension Dose: 1 SPR ONCE DAILY 2 of 7 GI Consult History and Physical [facility] Name Lyssa Higgins Date of Service 0837 [id number] (F) Attending KIKI ELLSWORTH Admitted [id number] Discharged Primary VERONICA [facility] - furosemide 80 mg tablet Dose: 40 MG BY MOUTH ONCE DAILY hydrOXYzine (ATARAX) Dose: 10 MG BY MOUTH ONCE DAILY insulin glargine U-300 conc 300 unit/mL (1.5 mL) Insulin Pen Dose: SUBCUTANEOUS insulin glargine-yfgn 100 UNIT/ML Dose: 20 UNT SUBCUTANEOUS AT BEDTIME ipratropium bromide 21 mcg (0.03 %) spray, non-aerosol Dose: 2 SPR TWICE A DAY levothyroxine 75 mcg capsule Dose: 75 MCG BY MOUTH BEFORE BREAKFAST magic mouthwash Dose: 10 ML BY MOUTH FOUR TIMES A DAY NEEDED Novolog U-100 Insulin aspart 100 unit/mL solution Dose: SUBCUTANEOUS nystatin (MYCOSTATIN) 915717 UNIT/ML Dose: 5 ML BY MOUTH THREE TIMES A DAY pantoprazole 40 mg tablet Dose: 40 MG BY MOUTH ONCE DAILY sodium bicarbonate 650 mg tablet Dose: 650 MG BY MOUTH TWICE A DAY trazodone 50 mg tablet Dose: 25 MG BY MOUTH AT BEDTIME Wixela Inhub Inhalation Aerosol Powder Breath Activated 100-50 MCG/ACT Dose: 1 PUF INHALED TWICE A DAY Active Medications morphine sulfate (PF) 2 MG/ML 2 MG IV PUSH Q6HPRN for CHEST PAIN, SEVERE PAIN 7-10 PAIN SCALE hydrALAZINE (APRESOLINE) 20 MG/ML 10 MG IV PUSH Q6HPRN for SYSTOLIC BLOOD PRESSURE > 165 bumetanide (BUMEX) 1 MG/4 ML 2 MG IV Q8H note dosemust waste azithromycin (ZITHROMAX) 500 MG IV Q24H 250 ML/HR sodium chloride 0.9% 250 ML cefTRIAXone (ROCEPHIN) 2 GM IV Q24H 100 ML/HR sodium chloride 0.9% MB+ 50 ML pantoprazole (PROTONIX) 40 MG IV PUSH Q12H folic acid (FOLATE) 1 MG PO DAILY iron sucrose (VENOFER) 100 MG/5 ML 100 MG IV DAILY 400 ML/HR PLEASE INDICATE THE NUMBER OF INFUSIONS THE PATIENT IS TO RECEIVE. ALBUMIN HUMAN 25% 100 ML IV Q12H 100 ML/HR PLEASE SPECIFY THE NUMBER OF BOTTLES TO INFUSE. acetaminophen (TYLENOL) 650 MG RECTAL Q6HPRN for TEMP > 100.4 sodium phosphate 15 MMOL/250ML Dose Range IV SS SSPRN for PER PROTOCOL PHOS-NAK PACKET 280-160-250 MG Dose Range PO SSPRN for OTHER (SEE COMMENT) GIVE 1 PACKET EVERY 6 HOURS X2 DOSES magnesium sulfate PREMIX 2 GM/50 ML Dose Range IV SS SSPRN for OTHER (SEE COMMENT) magnesium oxide (MAG-OX) Dose Range PO SSPRN for PER PROTOCOL potassium chloride PREMIX 10 MEQ/100 ML Dose Range IV SS SSPRN for OTHER (SEE COMMENT) 3 of 7 GI Consult History and Physical [facility] Name Lyssa Higgins Date of Service 0837 [id number] (F) Attending KIKI ELLSWORTH Admitted [id number] Discharged Primary VERONICA OWENSNTH - *FOR PATIENTS WITH CVC/PICC LINES ONLY* PRN FOR HYPOKALEMIA potassium chloride (K-DUR) Dose Range PO SSPRN for OTHER (SEE COMMENT) potassium bicarb (EFFER-K) Dose Range PO SSPRN for OTHER (SEE COMMENT) insulin glargine-yfgn 100 UNIT/ML 15 UNT SUBCUT BEDTIME check glucose every am. If morning (Fasting) glucose is >150 dextrose 50% SYRINGE (25 GM) 25 ML IV PUSH PRN for HYPOGLYCEMIA IF BLOOD SUGAR < 70 insulin lispro (HumaLOG) PEN 100 UNIT/ML Sliding Scale Dose SUBCUT SSPRN for HYPERGLYCEMIA artificial tear (REFRESH)OPHTH 1 LORRI EACH EYE BID sodium chloride FOR INH 0.9% 3 ML PER TUBE PRN for OTHER (SEE COMMENT) ENDOTRACHIAL TUBE LAVAGE & SUCTION MIRALAX PACKET 17 GM PO DAILYPRN for CONSTIPATION spironolactone (ALDACTONE) 12.5 MG PO DAILY PHARMACY WILL SUPPLY SPLIT TABLET docusate sodium (COLACE) 100 MG PO DAILY MIRALAX PACKET 17 GM PO DAILY melatonin 5 MG PO BEDTIME levothyroxine (SYNTHROID) 75 MCG PO ACB atorvastatin (LIPITOR) 80 MG PO DAILY acetaminophen (TYLENOL) 1000 MG PO BID carvedilol (COREG) 12.5 MG PO BID nitroglycerin (NITROSTAT) 0.4 MG SUBLING [id number] for CHEST PAIN DUONEB 0.5-2.5 MG/3 ML 3 ML INHALED [id number] for SHORTNESS OF BREATH sodium chloride 0.9% FLUSH 10 ML IV PUSH PRN for FLUSH IV LINE NOZIN [employer] POPSWAB 1 EA NASAL BID APPLY TO EACH NOSTRIL ondansetron (ZOFRAN) INJ 4 MG/2 ML 4 MG IV PUSH Q4HPRN for NAUSEA VOMITING sodium chloride 0.9% FLUSH 10 ML IV PUSH Q8HWA Review of Systems Narrative 14-point review of systems performed and negative except for that mentioned in the HPI Vital Signs 0730 HR 81 RR 23 BP 163 / 73 O2Sat 96 0700 HR 82 RR 24 BP 159 / 73 O2Sat 95 0440 T 98.3 2325 T 98.5 Intake and Output 4 of 7 GI Consult History and Physical [facility] Name Lyssa Higgins Date of Service 0837 [id number] (F) Attending KIKI ELLSWORTH Admitted [id number] Discharged Primary VERONICA SPEARS - previous current encounter day day cumulative Intake 500 - 5593 Output 5000 - 9440 Balance (-4500) - (-3845) Physical Exam Narrative General: Patient is an elderly appearing female lying in bed. Appears uncomfortable. Eyes: There is no scleral icterus. No conjunctival erythema. ENT: There is no pharyngeal erythema or exudate. External ears appear normal. No nasal drainage noted. Neck: Neck is supple, trachea is midline, no masses noted Respiratory: No evidence of increased work of breathing or accessory muscle use. Cardiovascular: Regular rate and rhythm. Abdomen: Abdomen is soft, non-distended, and non-tender. There is no rebound tenderness or guarding noted. No hepatosplenomegaly. Musculoskeletal: No apparent injury noted. No joint swelling. Peripheral Vascular/Extremities: No lower extremity edema noted. Skin is warm, no peripheral cyanosis. Skin: No jaundice. No rashes or lesions noted. Neurological: Appears normal in conversation. No asterixis. Psychiatric: Speech is of regular rate, rhythm, volume, and amount. Mood appears stable. Affect is full range. No evidence of acute agitation. Lab Results 0620 Chemistry NA 144 K 4.1 CHLORIDE 104 CO2 33.4 (H) AGAP 10.7 GLUC 85 BUN 28 (H) CREAT 2.0 (H) GFR Tnp TP 6.0 (L) ALB 3.4 GLOB 2.6 ALB/GLOB 1.3 CALCIUM 9.3 BILI TOT 0.50 AST 17 ALT 10 ALP 64 PHOS 2.7 MG 1.9 IRON 23 (L) TIBC 117 (L) SAT% 20 PCT 1.81 (H) 0620 Hematology WBC 8.4 RBCS 4.1 (L) HGB 11.3 (L) HCT 36.5 (L) MCV 90.1 MCH 27.9 MCHC 31.0 (L) RDW 17.0 (H) PLT S 403 MPV 9.7 (H) MANDIFF No 0619 Chemistry CRP 8.3 (H) 2325 Bedside Testing GLUMETER 77 2100 Chemistry K 4.3 2100 Hematology HGB 10.0 (L) HCT 31.3 (L) 1153 Bedside Testing GLUMETER 93 5 of 7 GI Consult History and Physical [facility] Name Lyssa Higgins Date of Service 0837 [id number] (F) Attending KIKI ELLSWORTH Admitted [id number] [facility]charged [facility]2 Hematology HGB 9.8 (L) HCT 30.6 (L) 1030 Blood Gas LIZBETH Yes (Preliminary) LIZBETH Positive (Preliminary) A-PH 7.46 (H) (Preliminary) PCO2 46.6 (H) (Preliminary) PO2 81.1 (Preliminary) HCO3 32.4 (H) (Preliminary) BE 7.6 (H) (Preliminary) O2 SAT 96.4 (Preliminary) FIO2 28 (Preliminary) SITE Right Radial (Preliminary) TEMP 98.6 (Preliminary) O2 MODE (Pending) 0923 Chemistry CRP 11.7 (H) 0841 Chemistry PCT 1.82 (H) Procedures and Surgeries None Problem List Anemia Acute hypoxemic respiratory failure Pneumonia Congestive heart failure High troponin I level Assessment/Plan 83-year-old female with: 1. Anemia, normocytic: No evidence of active GI bleeding at this time. She does have a history of gastric AVM in 2019 requiring hemostasis clip placement. Last BM reported without evidence of melena. She also has CKD likely contributing to her anemia. -Continue PPI. -Please notify with any signs of overt GI bleeding. -Plan for EGD/colonoscopy as an outpatient, or as an inpatient with worsening anemia/active GI bleeding. -Continue to monitor H & H and transfuse PRN 2) Pneumonia: Continued treatment per ID, primary team 3) Respiratory failure: Now extubated. s/p right sided thoracentesis. Left sided thoracentesis planned for today. 4) CKD: Nephrology following. 5) History of colon polyps: Patient was due for surveillance colonoscopy 08/2023. Plan for outpatient colonoscopy once she is more stable. Thank you for this consultation. Please call with any questions. Electronically signed by LUZMA HARTMANN on 1113 6 of 7 GI Consult History and Physical [facility] Name Lyssa Higgins Date of Service 0837 [id number] (F) Attending KKII ELLSWORTH Admitted [id number] Discharged Primary VERONICA SPEARS - I hereby attest the note that was written on this patient accurately reflects the notations made when patient was examined. Electronically signed by CASE ALKA Morrell JAJA on 1823 7 of 7 CC'ed Logic: Ordering Provider: LUZMA Santamaria jeovanny [facility] & [place] 12/30/2023 16:31:04 Procedures Surgical History Date Name Laterality Status Provider Name and Address Organization Details Recorded Time 5 aortoplasty completed Lindsay Oquendo [facility] [place] 06/14/2025 13:58:53 3 Cystoscopy-Fema le cancelled Roopa Bautista [facility] [place] 10/02/2022 10:27:51 Imaging Results None recorded. Procedure Notes None recorded. Medical Equipment None Reported. Allergies Allergen ID Allergen Name Allergen Category Reaction Reaction Severity Criticality Documentation Date Start Date Code Code System Note Provider Name and Address Organization Details Recorded Time [id number] Substance with sulfonami de structure and antibacte rial mechanism of action (substanc e) medicatio n rash Not available Not available 11/05/2023 21813 8003 SNOMED Other react ions and sever ities : 'Drug -gómez jermaine nause a and vomit ing'. Gladis up ASTRID [facility] & [place] 4 07:38:10 [id number] doxycycli ne Not available hives rash severe severe Not available 11/05/2023 3640 RxNorm Gladis Bautistawell jeovanny ASTRID [facility] & [place] 4 07:38:10 [id number] erythromy trent medicatio n rash Not available Not available 11/05/2023 4053 RxNorm Other react ions and sever ities : 'Drug -gómez jermaine nause a and vomit ing'. Gladis Bautistawell jeovanny ASTRID [facility] & [place] 4 07:38:10 [id number] ciproflox acin medicatio n Not available Not available Not available 11/05/2023 2551 RxNorm Other react ions and sever ities : 'Adve rse react ion to subst ance' . Gladis ASTRID Carlin [facility] & [place] 4 07:38:10 04951 Product containin g penicilli n (product) medicatio n Not available Not available Not available 06/09/2022 25329 8001 SNOMED ASTRID Vega [facility] & [place] 2 11:03:56 11189 codeine medicatio n Not available Not available Not available 06/09/2022 2670 RxNorm Other react ions and sever ities : 'Drug -gómez jermaine nause a and vomit ing - Moder ate'. ASTRID Moseley [facility] & [place] 4 07:38:10 46575 E-Mycin medicatio n Not available Not available Not available 06/09/202216163 8 RxNorm ASTRID Vega [facility] & [place] 2 11:04:22 Medications Name Sig Start Date Stop Date Status Note LastModified by Organization Details LastModified Time furosemide 40 mg tablet TAKE 1 TABLET BY MOUTH EVERY DAY active Not Available Not Available No t Available atorvastati n 80 mg tablet 80 microgram s by oral route. active Not Available Not Available No t Available nystatin 100,000 unit/mL oral suspension 11/03 completed Not Available Not Available Not Available carvedilol 6.25 mg tablet Take 1 tablet twice a day by oral route. active Not Available Not Available No t Available atorvastati n 20 mg tablet 80 mg by oral route. 08/14 completed Not Available Not Available Not Available carvedilol 12.5 mg tablet TAKE 1 TABLET TWICE DAILY active Not Available Not Available No t Available ipratropium 0.5 mg-albutero l 3 mg (2.5 mg base)/3 mL nebulizatio n soln 3 mL by inhalatio n route. 08/14 completed Not Available Not Available Not Available albuterol sulfate 2.5 mg/3 mL (0.083 %) solution for nebulizatio n 2.5 mg by inhalatio n route. 08/14 completed Not Available Not Available Not Available Venofer 100 mg iron/5 mL intravenous solution 200 mg by intraven. route. 08/13 completed Not Available Not Available Not Available trazodone 50 mg tablet TAKE 1 TABLET (50 MG) BY MOUTH AT NIGHT IF NEEDED FOR SLEEP. active Not Available Not Available No t Available azithromyci n 250 mg tablet 1 tablet by oral route. 11/03 completed Not Available Not Available Not Available Lidocaine Viscous 2 % mucosal solution 20 mL by mucous mem route. 08/12 completed Not Available Not Available Not Available fluconazole 150 mg tablet 11/04 completed Not Available Not Available Not Available prednisone 20 mg tablet 11/03 completed Not Available Not Available Not Available sodium chloride 0.45 % intravenous solution 1000 mL by intraven. route. 08/14 completed Not Available Not Available Not Available amlodipine 5 mg tablet TAKE 1 TABLET BY MOUTH EVERY DAY 2023 active Not Available Not Available Not Avai lable Tamiflu 75 mg capsule 75 mg by oral route. 08/03 completed Not Available Not Available Not Available hydrocodone 10 mg-acetamin ophen 325 mg tablet TAKE 1/2 TABLET BY MOUTH EVERY 6 HOURS NEEDED FOR PAIN 11/03 completed Not Available Not Available Not Available aspirin 81 mg tablet,zackery yed release TAKE 1 TABLET BY MOUTH EVERY DAY active Not Available Not Available No t Available tramadol 50 mg tablet TAKE 1 TABLET (50 MG TOTAL) BY MOUTH 2 (TWO) TIMES A DAY IF NEEDED FOR SEVERE PAIN FOR UP TO 7 DAYS. 06/09 completed Not Available Not Available Not Available acetaminoph en 500 mg tablet 1000 mg by oral route. 08/14 completed Not Available Not Available Not Available hydralazine 20 mg/mL injection solution 20 mg by injection route. 08/03 completed Not Available Not Available Not Available carvedilol 3.125 mg tablet 11/04 completed Not Available Not Available Not Available levothyroxi ne 75 mcg tablet TAKE 1 TABLET DAILY active Not Available Not Available No t Available ceftriaxone 1 gram solution for injection 1 g by injection route. 08/04 completed Not Available Not Available Not Available diphenhydra mine 50 mg/mL injection solution 25 mg by injection route. 08/04 completed Not Available Not Available Not Available furosemide 80 mg tablet 40 mg by oral route. active Not Available Not Available No t Available piperacilli n-tazobacta m 3.375 gram intravenous solution 3.375 g by intraven. route. 08/12 completed Not Available Not Available Not Available sodium bicarbonate 650 mg tablet TAKE 1 TABLET DAILY active Not Available Not Available No t Available cephalexin 500 mg capsule TAKE 1 CAPSULE BY MOUTH TWICE A DAY FOR 7 DAYS 11/03 completed Not Available Not Available Not Available pantoprazol e 40 mg tablet,zackery yed release TAKE 1 TABLET DAILY active Not Available Not Available No t Available promethazin e 25 mg/mL injection solution 12.5 mg by injection route. 08/14 completed Not Available Not Available Not Available azithromyci n 500 mg intravenous solution 500 mg by intraven. route. 08/04 completed Not Available Not Available Not Available nitroglycer in 0.4 mg sublingual tablet active Not Available Not Available Not Available docusate sodium 100 mg capsule TAKE 1 CAPSULE DAILY active Not Available Not Available No t Available omeprazole 20 mg capsule,del ayed release 40 mg by oral route. 08/14 completed Not Available Not Available Not Available doxazosin 4 mg tablet active Not Available Not Available No t Available bumetanide 1 mg tablet TAKE 1 TABLET BY MOUTH 1 TIME EACH DAY. active Not Available Not Available No t Available sodium chloride 0.9 % intravenous solution 1000 mL by intraven. route. 08/13 completed Not Available Not Available Not Available ergocalcife rol (vitamin D2) 1,250 mcg (50,000 unit) capsule TAKE 1 CAPSULE BY MOUTH EVERY WEKK active Not Available Not Available No t Available nystatin 100,000 unit/gram topical powder APPLY TO AFFECTED AREA 3 TIMES A DAY NEEDED 11/03 completed Not Available Not Available Not Available methylpredn isolone 4 mg tablets in a dose pack TAKE 6 TABLETS ON DAY 1 DIRECTED ON PACKAGE AND DECREASE BY 1 TAB EACH DAY FOR A TOTAL OF 6 DAYS 11/03 completed Not Available Not Available Not Available hydroxyzine HCl 10 mg tablet TAKE 1 TABLET DAILY active Not Available Not Available No t Available ondansetron 4 mg disintegrat ing tablet 4 mg by oral route. 08/14 completed Not Available Not Available Not Available cefdinir 300 mg capsule 1 tablet by oral route. 11/03 completed Not Available Not Available Not Available fluticasone propionate 50 mcg/actuati on nasal spray,suspe nsion active Not Available Not Available Not Available clotrimazol e 1 % topical cream APPLY TO AFFECTED AREA TWICE A DAY 11/04 completed Not Available Not Available Not Available ipratropium bromide 21 mcg (0.03 %) nasal spray SPRAY 1 TO 2 SPRAYS INTO EACH NOSTRIL TWICE A DAY NEEDED active Not Available Not Available No t Available ceftriaxone 2 gram solution for injection 2 g by injection route. 08/04 completed Not Available Not Available Not Available metoprolol tartrate 5 mg/5 mL intravenous solution 5 mg by intraven. route. 08/14 completed Not Available Not Available Not Available enoxaparin 30 mg/0.3 mL subcutaneou s syringe 30 mg by sub-q route. 08/14 completed Not Available Not Available Not Available enoxaparin 40 mg/0.4 mL subcutaneou s syringe 40 mg by sub-q route. 08/13 completed Not Available Not Available Not Available dextrose 10 % in water (D10W) intravenous solution 250 mL by intraven. route. 08/12 completed Not Available Not Available Not Available Mucinex 600 mg tablet, extended release 600 mg by oral route. 08/04 completed Not Available Not Available Not Available sodium chloride 0.9 % (flush) injection syringe 10 mL by injection route. 08/14 completed Not Available Not Available Not Available Phos-NaK 280 mg-160 mg-250 mg oral powder packet 1 pkt by oral route. 08/03 completed Not Available Not Available Not Available Vitamin D3 25 mcg (1,000 unit) tablet 5000 unts by oral route. 08/14 completed Not Available Not Available Not Available insulin aspart (U-100) 100 unit/mL (3 mL) subcutaneou s pen 30 unts by sub-q route. active Not Available Not Available No t Available duloxetine 30 mg capsule,del ayed release TAKE 1 CAPSULE DAILY active Not Available Not Available No t Available sodium chloride 0.9 % intravenous piggyback 100 mL by intraven. route. 08/13 completed Not Available Not Available Not Available BD Ultra-Fine Short Pen Needle 31 gauge x 5/16 USE WITH INJECTION 4 TIMES DAILY active Not Available Not Available No t Available ferrous gluconate 324 mg (38 mg iron) tablet TAKE 1 TABLET (324 MG) BY MOUTH 1 (ONE) TIME EACH DAY. active Not Available Not Available No t Available ferrous sulfate 324 mg (65 mg iron) tablet,zackery yed release 324 mg by oral route. 08/14 completed Not Available Not Available Not Available Tamiflu 30 mg capsule 30 mg by oral route. 08/04 completed Not Available Not Available Not Available magnesium sulfate 2 gram/50 mL (4 %) in water intravenous piggyback 2 g by intraven. route. 08/13 completed Not Available Not Available Not Available Humalog KwikPen (U-100) Insulin 100 unit/mL subcutaneou s 1 unt by sub-q route. 08/14 completed Not Available Not Available Not Available Vitamin D 2,000 unit capsule Take by oral route. active Not Available Not Available No t Available Solu-Medrol (PF) 125 mg/2 mL solution for injection 60 mg by injection route. 08/04 completed Not Available Not Available Not Available levothyroxi ne 75 mcg capsule 75 microgram s by oral route. active Not Available Not Available No t Available Purelax 17 gram/dose oral powder TAKE 17 GRAMS ONCE DAILY DIRECTED active Not Available Not Available No t Available Vitamin D3 125 mcg (5,000 unit) tablet 5000 unts by oral route. 08/04 completed Not Available Not Available Not Available HealthyLax 17 gram oral powder packet 17 g by oral route. 08/14 completed Not Available Not Available Not Available sodium,pota ssium,mag sulfates 17.5 gram-3.13 gram-1.6 gram oral soln Take 6 ounces twice a day by oral route as directed for 1 day, for colonosco py. 2024 active Not Available Not Available Not Avai lable ferrous gluconate 324 mg (37.5 mg iron) tablet 324 mg by oral route. active Not Available Not Available No t Available Breo Ellipta 100 mcg-25 mcg/dose powder for inhalation 1 inhalatio n by inhalatio n route. 08/14 completed Not Available Not Available Not Available potassium chloride ER 20 mEq tablet,exte nded release TAKE 1 TABLET BY MOUTH ONCE EACH DAY DO NOT CRUSH, CHEW, OR SPLIT active Not Available Not Available No t Available Toujeo SoloStar U-300 Insulin 300 unit/mL (1.5 mL) subcutaneou s pen INJECT 60 UNITS UNDER THE SKIN INTO THE APPROPRIA TE AREA DIRECTED EVERY NIGHT active Not Available Not Available No t Available Accu-Chek Guide test strips USE TO TEST WITH MEALS AND AT BEDTIME (RECORD AND GIVE TO PCP) active Not Available Not Available No t Available Toujeo Max U-300 SoloStar 300 unit/mL (3 mL) subcutaneou s insulin pen INJECT 10-20 UNITS UNDER THE SKIN EVERY NIGHT. active Not Available Not Available No t Available vancomycin 1.25 gram intravenous solution 1250 mg by intraven. route. 08/13 completed Not Available Not Available Not Available Lokelma 10 gram oral powder packet active Not Available Not Available Not Available Wixela Inhub 250 mcg-50 mcg/dose powder for inhalation INHALE 1 PUFF TWICE DAILY active Not Available Not Available No t Available Wixela Inhub 100 mcg-50 mcg/dose powder for inhalation 1 puf by inhalatio n route. active Not Available Not Available No t Available Accu-Chek Guide Me Glucose Meter USE DIRECTED active Not Available Not Available No t Available Drizalma Sprinkle 30 mg capsule,del ayed release Take 30 mg by oral route. 11/04 completed Not Available Not Available Not Available AirDuo Digihaler 113 mcg-14 mcg/actuati on breath act,powder sensor 1 inhalatio n by inhalatio n route. active Not Available Not Available No t Available insulin glargine-yf gn (U-100) 100 unit/mL (3 mL) subcutaneou s pen 20 unts by sub-q route. 2021 active Not Available Not Available Not Avai lable Vitals Date Recorded Body weight Body mass index (BMI) Body height Oxygen saturation Oxygen saturation in Arterial blood by Pulse oximetry Heart rate Systolic And Diastolic Provider Name and Address Organization Details Last Updated DateTime 4 64279.5 6 g 27.5 kg/m2 163.83 cm 98 % 98 % 72 /min 158/67 mm[Hg] Gladis Wei [facility] & [place] 4 09:24:46 Date Recorded Body temperature Systolic And Diastolic Provider Name and Address Organization Details Last Updated DateTime 06/09/2022 97.3 [degF] 130/66 mm[Hg] Jia Aburto ASTRID - EMD [employer]UC[employer] [facility] & [place] 06/09/2022 11:22:03 Date Recorded Body height Body weight Oxygen saturation Oxygen saturation in Arterial blood by Pulse oximetry Heart rate Systolic And Diastolic Provider Name and Address Organization Details Last Updated DateTime 5 163.83 cm 09586.5 9 g 96 % 96 % 73 /min 158/75 mm[Hg] Lindsay Oquendo [place] - [facility] & [place] 5 13:59:11 Social History Question Answer Notes LastModified by Organizat ion Details LastModified Time Tobacco Smoking Status Former Smoker Jia [facility]urto [facility] [place] [facility] [place] 06/09/2022 11:06:03 When Did You Quit Smoking? 6-10[facility] Information not available 06/09/2022 Sex: Unknown Functional Status Question Answer Note LastModified by Organizat ion Details LastModified Time Do you use any illicit or recreational drugs? No Information not available 06/09/2022 What is your level of alcohol consumption? None Information not available 06/09/2022 Mental Status None recorded. Family History Nothing Reported Notes:Father- diabetes (Dece ased) Mother- lung cancer() sister- kidney cancer Medical History Condition Response Diabetes Y Bleeding Disorder Vision or Eye Problems Y Arthritis Y Kidney Stones Y Ear or Hearing Problems Y Congestive Heart Failure (CHF) Y Back Problems Y Kidney or Bladder Problems Y Thyroid Problems Y COPD Y GI Problems Y Depression Y Clotting Disorder Y Anemia Y Reflux/GERD Y High Cholesterol Y Heart Attack (SC) Y Spine Problems Y Heart Disease Y Rheumatoid Arthritis Y Headaches Y Hypertension Y Gynecological HistoryNo gynecological history recorded. Obstetrics History GPAL:G 0 P 0 0 0 0 Immunizations Vaccine Type Date Status Note Provider Nam e and Address Organization Details Recorded Time Influenza, split virus, trivalent, preservative 0 completed Not Available [facility] 06/14/2025 13:50:39 Influenza, high-dose, trivalent, PF 0 completed Not Available [facility] 06/14/2025 13:50:39 COVID-19, mRNA, LNP-S, PF, 30 mcg/0.3 mL dose 1 completed Not Available [facility] 06/14/2025 13:50:39 COVID-19, mRNA, LNP-S, PF, 30 mcg/0.3 mL dose 1 completed Not Available [facility] 06/14/2025 13:50:39 Influenza, high-dose, quadrivalent, PF 1 completed Not Available [facility] 06/14/2025 13:50:39 COVID-19, mRNA, LNP-S, PF, 30 mcg/0.3 mL dose 1 completed Not Available [facility] 06/14/2025 13:50:39 Influenza, high-dose, quadrivalent, PF 2 completed Not Available [facility] 06/14/2025 13:50:39 Tdap 3 completed Not Available [facility] 06/14/2025 13:50:39 COVID-19, mRNA, LNP-S, PF, 50 mcg/0.5 mL 3 completed Not Available [facility] 06/14/2025 13:50:39 Influenza, adjuvanted, quadrivalent, PF 3 completed Not Available [facility] 06/14/2025 13:50:39 Influenza, high-dose, quadrivalent, PF 5 completed Not Available [facility] 06/14/2025 13:50:39 Past Encounters Encounter ID Performer Location Encounter Start Date Encounter Closed Date Diagnosis/Indication Diagnosis SNOMED-CT Code Diagnosis ICD10 Code Diagnosis IMO Codes Diagnosis Note [id number] Paty Correia NP, S [facility] [address] [place] [address] 06/09/2022 11:00:32 06/09/2022 11:54:28 Malignant neoplasm of urinary bladder 140263712 C67.9 Pt unable to provide urine sampleSche dule Renal USRTC for office flexible cysto and to go over Renal US results Nocturia 106682992 R35.1 Urinary incontinence 165 413636 R32 Slowing of urinary stream 78210380 R39.12 [id number] Syeda Mendoza MD [facility] [address] [place] [address] 11/05/2023 09:11:23 11/05/2023 10:15:02 Essential hypertension 15671543 I10 Not well controlled on coreg 6.5 mg bid add amlodipine 2.5 and follow up . History of placement of stent for coronary artery disease 088380442 Z95.5 3 coronary stents placed in 2001 at [facility] as per the patient. On medical treatment no chest pain. Continue beta anjali add amlodipine continue aspirin and statin. Dyspnea on exertion 6084 5006 R06.09 likely noncardiac . Her EF is normal. No valvular heart disease. Likely secondary to her history of smoking and COPD. Recommend pulmonary evaluation . Type 2 sujit betes mellitus without complication 498536405 E11.9 follow up hemoglobin A1c. Dyslipidemia 666742552 E 78.5 on statin follow up fasting lipid profile. Anxiety 52591744 F41.9 on medication s. Chronic ki dney disease stage 3 485584476 N18.30 with history of dialysis temporaril y a month and half ago. Recommend Nephrology evaluation . Chronic ob structive pulmonary disease 63537547 J44.9 ex-smoker with COPD. Recommend pulmonary evaluation . Stas Taylor PA-C [facility] [address] [facility] [address] [place] [address] 06/14/2025 13:46:38 06/14/2025 14:29:34 Iron deficiency anemia 22024493 D50.9 [id number] -We will schedule EGD and colonoscop y for further evaluation . We will request cardiac clearance prior to the procedures . She will continue oral and IV iron as well as close monitoring of H & H at her nursing facility. Shira 7551915 K92.1 7672 Acquired arteriovenous malformation 8255586940 108 K31.819 25166990 Noted on remote EGD. Hemostasis clip was placed at that time. Health Concerns Section Related Observation LastModified by Organization Detai ls LastModified Time None Recorded Concern Status LastModified by Organization Details LastModified Time None Recorded Advance Directives Directive None Recorded Payers Insurance Date Sequence Insurance Name Policy Number Policy Garcia Covered Member ID Garcia Member ID Guarantor Name 12/03/2023 1 [employer] (MEDICARE REPLACEMENT/ ADVANTAGE - PPO) [id number] Lyssa Higgins [id number] Lyssa Higgins 10/02/2023 1 [employer] - COFINITY (PPO) Lyssa Higgins [id number] Lyssa Higgins 10/02/2023 [employer] (MEDICARE REPLACEMENT/ ADVANTAGE - PPO) Lyssa Higgins [id number] Lyssa Higgins 06/14/2025 [employer] (MEDICARE REPLACEMENT/ ADVANTAGE - PPO) Lyssa Higgins [id number] Lyssa Higgins Notes Date Note Type Note Provider Name and Address Organization Details Recorded Time 06/09/2022 text/html 81 yowm presents to clinic r/t h/o bladder cancer. Pt was last seen in our office on 11/09/2017. Pt has a h/o papillary TCCA, multifocal, S/P TURBT in 07/2017. Pt states she has not seen any other urologist since last visit here. Reports she has been experiencing slow urination for the past year. Nocturia x1. Denies any dysuria. States urine has been dark orange. Denies any UTIs since last visit. States she was experiencing some urinary incontinence; however, for the past 4 weeks she has not experience any.Pt is a DM. Pt had SC in 1996, currently is managed/treated by Cardiology. Paty Correia NP, S [address], [place], [address], [place] - [facility] & [place] 06/09/2022 11:42:19 11/05/2023 text/html 83-year-old female with past medical history significant for coronary artery disease with history of 3 coronary stents placed in 2001 as per the patient at [facility], hypertension dyslipidemia diabetes ex-smoker COPD, chronic kidney disease, history of temporary dialysis month and a half ago as per the patient.Patient came today to establish follow up with the Cardiovascular Clinic. She has been doing well she denied chest pain. No shortness of breath at rest or mild exertion. No palpitation dizziness falling down or passing out. No orthopnea or PND but she has mild leg swelling bilaterally. She denied bleeding anywhere. No cough wheeze sputum or hemoptysis no fever no chills no bleeding anywhere.I reviewed and discussed with the patient the results of the echocardiogram that was done yesterday and showed normal systolic function no hemodynamically significant valvular heart disease.She was admitted to the hospital and discharged yesterday.Today her blood pressure is not well controlled. we could not change the medications because she has not sure what she is taking at home. The patient will bring the medication to us and we will review them and make the necessary changes to control her blood pressure. EKG 11/05/23 Normal Sinus rhythm, LBBB. Abnormal EKG.I reviewed and discussed with the patient the results of the blood work that was done during hospital admission this week.Echocardiogram done 11/04/2023 normal LV systolic function. No hemodynamically significant valvular heart disease. Syeda Mendoza MD [address], [place], [address], [place] - [facility] & [place] 11/05/2023 12:22:28 06/14/2025 text/html Ms. Higgins is a very pleasant 84-year-old female resident of [facility] in [place] who is referred for evaluation of melena and iron deficiency anemia. 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 She has chronic kidney disease and will be starting dialysis once her shunt is healed. She reports that she is receiving blood transfusions every 3 weeks due to persistent drop in H & H. She also states she is receiving oral and infusional iron therapy. She has recently noted dark and tarry appearing stools. She takes a baby aspirin. She has a history of heart failure and follows with cardiology. She denies hematemesis or hematochezia. Stas Taylor PA-C [address], [place], [address], [facility] - [facility] - [place] & [place] 06/14/2025 19:26:48 OBGyn Episode No OBEpisode recorded.
--- OUTSIDE RECORDS SUMMARY | 2025-06-22 13:01 | XMS_ITS | Data Portability ---
Author Organization [place] - [facility], [facility], [facility], [facility] Address [address] [place] [address] Assessment No assessment recorded. Plan of Treatment Reminders Order Date Submit Date Provider Last Modified By Organization Details Last Modified Time Details Appointments None recorded. Lab SARS CoV 2 RNA (COVID-19), QL, journal clerk-PCR, respiratory specimen 2019 [address] [facility], [address] [place] [address], [address], 1 05:02:24 Referral None recorded. 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 Client has the potential of being exposed [...] or diarrhea. Lyssa Trejo, ANGELA, A [address] [place] [address], [phone], [facility] - [facility], [facility] 03/10/2020 16:30:59 OBGyn Episode No OBEpisode recorded.
--- OUTSIDE RECORDS SUMMARY | 2025-06-22 13:01 | XMS_ITS | Patient Health Record ---
Author Organization [email or web address] [facility] Sonia stone Address [address] [place] [address] Phone [phone] Care Team Providers Care Consumer Services Advisor Name Role Phone Josue Trejo Unavailable [phone] Migration, Provider Unavailable Unavailable Reason For Referral No Information Medications Medication SIG (Take, Route, Frequency, Duration) Notes Start Date End Date Status DULoxetine HCl 30 MG Capsule Delayed Release Particles Oral Active Amoxicillin-Pot Clavulanate 500-125 MG Tablet Oral Active Toujeo SoloStar 300 UNIT/ML Solution Pen-injector Subcutaneous Active FLUZONE HIGH-DOSE 2019-20 (PF) 180 MCG/0.5 ML INTRAMUSCULAR SYRINGE *Reorder from Number [employer] for eRx and Interaction Alerts* Active Anoro Ellipta 62.5-25 MCG/INH Aerosol Powder Breath Activated Inhalation *Pick strength-form from Number 1 [employer] for eRX* Active Ventolin HFA 108 (90 Base) MCG/ACT Aerosol Solution Inhalation Active ULTRA-FINE SHORT PEN NEEDLE 31 gauge x 5/16 NEEDLE, DISPOSABLE MISCELLANEOUS *Reorder from Number 1 [employer] for eRx and Interaction Alerts* Active Nystatin 831349 UNIT/GM Powder External Active Nitroglycerin 0.4 MG Tablet Sublingual Sublingual Active Cephalexin 500 MG Capsule Oral Active Atorvastatin Calcium 80 MG Tablet Oral Active Levothyroxine Sodium 75 MCG Tablet Oral Active NOVOLOG FLEXPEN U-100 INSULIN ASPART 100 UNIT/ML (3 ML) SUBCUTANEOUS *Reorder from Number [employer] for eRx and Interaction Alerts* Active GaviLyte-G 236-22.74-6.74 -5.86 gram Solution Reconstituted Oral *Pick strength-form from Number 1 [employer] for eRX* Active traZODone HCl 50 MG [...] PROPIONATE 50 MCG/ACTUATION NASAL SPRAY,SUSPENSION *Reorder from Number 1 [employer] for eRx and Interaction Alerts* Active Pantoprazole Sodium 40 MG Tablet Delayed Release Oral Active VITAMIN D2 1,250 MCG (50,000 UNIT) CAPSULE *Reorder from [employer] for eRx and Interaction Alerts* Active Social History Social History Additional Details Category Social Info Options Details Migrated Social History Migrated Social History Tobacco Years: Never smoker 06/26/2020 Problems Problem Type SNOMED Code ICD Code Onset Dates Problem Status W/U Status Risk Notes Problem History of suspected exposure to biological agent (45571978076976 ) Encounter for observation for suspected exposure to other biological agents ruled out (Z03.818) 0 Active confirmed Encounters Encounter Location Date Provider Diagnosis [facility] [address] [place] [address] 03/25/2025 Provider Migration [facility] [address] [place] [address] 03/26/2025 Provider Migration Plan Of Treatment No Information
--- OUTSIDE RECORDS SUMMARY | 2025-06-22 13:02 | XMS_ITS | Encounter Summary ---
Author Organization [employer] ([place], [place], [place], [place]) Address [address] [place] [address] Care Team Providers Care Pickling Grader Name Role Phone Anand Noble MD Primary [...] Date Juan rded Speak language other than Bruneian at home Not on file 09/01/2023 Want [...] on filedocumented in this encounter Care Teams Pickling Grader Relationship Specialty Start Date End Date Anand Noble MD [address] [place] [address] PCP - General Family Medicine 07/29/23 documented as of this encounter
--- OUTSIDE RECORDS SUMMARY | 2025-06-22 13:02 | XMS_ITS | Continuity of Care Document ---
Author Organization [facility] [place], [facility] Address [address] [address] Care Team Providers Care Aircraft Machinist Helper Name Role Phone REGAN MARTIN Primary Care Provider Assessment Encounter Date Assessment Date Assessment LastModified by Organization Details LastModified Time 06/14/2025 06/14/2025 84-year-old female with CKD preparing to being dialysis, DM2, heart failure, chronic anemia, hypothyroidis m, COPD and gastric AVM who presents to the office today with worsening iron deficiency anemia requiring blood transfusion, most recent Hgb 7, and melena. [email or web address] Not available 06/14/2025 19:24:40 Plan of Treatment Reminders Order Date Submit Date Provider Last Modified By Organization Details Last Modified Time Details Appointments SURGERY 15 2024 11:00A M Nithin Davis MD Not available Not available Not available Lab None recorded . Referral None recorded . Procedures None recorded . Surgeries None recorded . Imaging None recorded . Medication Orders None recorded . Patient TargetsNo targets recorded. Patient InstructionsNo instructions recorded. Reason for Referral None Reported. Problems Name Problem SNOMED Code Status Onset Date Resolution Date Notes Provider Name and Address Organization Details Recorded Time Acute on chronic hypoxemic respirator y failure 5824807918805 9100 Active ASTRID Moseley [facility] [place] 4 07:38:13 Hypomagnes emia 464754955 Active ASTRID Moseley [facility] [place] 4 07:38:13 Acute exacerbati on of chronic obstructiv e pulmonary disease 862571862 Active Gladis Sanjuana null, [place] - [facility] [place] [facility] [place] 4 07:38:13 Viral respirator y infection 857530573 Active Gladis Sanjuana [place], [place] - [facility] [place] [facility] [place] 4 07:38:13 Type 1 diabetes mellitus 31567636 Active Gladis Sanjuana null, [place] - [facility] [place] [facility] [place] 4 07:38:14 Organism isolated in blood by culture 7005441925697 107 Active Gladis Sanjuana [place], [place] - [facility] [place] [facility] [place] 4 07:38:14 Bacterial pneumonia 82016697 Active Gladis Sanju[place] [facility] [place] [facility] [place] 4 07:38:49 Influenza 6271107 Active Gladis Sanju[place] [facility] [place] 4 07:38:49 Chronic renal failure 60426675 Active Gladis Sanjuana [place] - [facility] [place] [facility] [place] 4 07:38:49 Kidney disease 71734900 Active 2021 Jia Crase [place], [place] [facility] [place] 2 11:04:33 Total urinary incontinen ce 043769775 Active 2021 Jia Crase [place] - [facility] [place] [facility] [place] 2 11:04:45 Malignant neoplasm of urinary bladder 469858886 Active 2022 Roopa Bautista null, [place] - [facility] [place] [facility] [place] 3 10:26:54 Nocturia 900437213 Active 2022 Roopa Bautista [place] - [facility] [place] [facility] [place] 3 10:26:58 Urinary incontinen ce 035009934 Active 2022 Roopa up, [place] - [facility] [place] [facility] [place] 3 10:27:02 Slowing of urinary stream 33338645 Active 2022 Roopa up, [place] - [facility] [place] [facility] [place] 3 10:27:08 Iron deficiency anemia 20329899 Active 2024 Stas Taylor PA-C [address], [place], [address] , [facility] [place] 5 19:24:49 Melena 7400182 Active 2024 Stas Taylor PA-C [address], [place], [address] , [facility] & [place] 5 19:25:14 Acquired arterioven ous malformati on 8160297872395 Active 2024 Stas Taylor PA-C [address] , [place], [address] , [facility] [place] 5 19:25:30 Problem Notes None recorded. Procedures Surgical History Date Name Laterality Status Provider Name and Address Organization Details Recorded Time 5 aortoplasty completed Lindsay Oquendo [facility] [place] 06/14/2025 13:58:53 3 Cystoscopy-Fema le cancelled Roopa Michele [facility] [place] 10/02/2022 10:27:51 Imaging Results None recorded. Procedure Notes None recorded. Medical Equipment None Reported. Allergies Allergen ID Allergen Name Allergen Category Reaction Reaction Severity Criticality Documentation Date Start Date Code Code System Note Provider Name and Address Organization Details Recorded Time 027888 Substance with sulfonami de structure and antibacte rial mechanism of action (substanc e) medicatio n rash Not available Not available 11/05/2023 78541 8003 SNOMED Other react ions and sever ities : 'Drug -gómez jermaine nause a and vomit ing'. Gladis up [facility] [place] 4 07:38:10 185651 doxycycli ne Not available hives rash severe severe Not available 11/05/2023 3640 RxNorm [facility] [place] 4 07:38:10 344336 erythromy trent medicatio n rash Not available Not available 11/05/2023 4053 RxNorm Other react ions and sever ities : 'Drug -gómez jermaine nause a and vomit ing'. ASTRID Moseley [facility] 4 07:38:10 547867 ciproflox acin medicatio n Not available Not available Not available 11/05/2023 2551 RxNorm Other react ions and sever ities : 'Adve rse react ion to subst ance' . ASTRID Moseley [facility] & [place] 4 07:38:10 47590 Product containin g penicilli n (product) medicatio n Not available Not available Not available 06/09/2022 35495 8001 SNOMED Jia up [facility] [place] 2 11:03:56 13910 codeine medicatio n Not available Not available Not available 06/09/2022 2670 RxNorm Other react ions and sever ities : 'Drug -gómez jermaine nause a and vomit ing - Moder ate'. ASTRID Moseley [facility] 4 07:38:10 55746 E-Mycin medicatio n Not available Not available Not available 06/09/2022 81061 8 RxNorm Jia up [facility] [place] 2 11:04:22 Medications Name Sig Start Date [...] intravenous solution 250 mL by intraven. route. 08/122 completed Not Available Not Available Not Available [...] Not Avai lable Vitals Date Recorded Body height Body weight Oxygen saturation Oxygen saturation in Arterial blood by Pulse oximetry Heart rate Systolic And Diastolic Provider Name and Address Organization Details Last Updated DateTime 5 163.83 cm 71265.5 9 g 96 % 96 % 73 /min 158/75 mm[Hg] Lindsay Oquendo [facility] [place] 5 13:59:11 Social History Question Answer Notes LastModified by [employer] Details LastModified Time Tobacco Smoking Status Former Smoker Jia Criselda up, [facility] [place] 06/09/2022 11:06:03 When Did You Quit Smoking? 6-10yearssin celastcigare tte Information not available 06/09/2022 Sex: Unknown Functional Status Question Answer Note LastModified by [employer] Details LastModified Time Do you use any illicit or recreational drugs? No Information not available 06/09/2022 What is your level of alcohol consumption? None Information not available 06/09/2022 Mental Status None recorded. Family History Nothing Reported Notes:Father- diabetes (Dece ased) Mother- lung cancer() sister- kidney cancer Medical History Condition Response Kidney Stones Y COPD Y Depression Y Clotting Disorder Y Spine Problems Y Vision or Eye Problems Y Arthritis Y High Cholesterol Y Rheumatoid Arthritis Y Headaches Y Ear or Hearing Problems Y Thyroid Problems Y Kidney or Bladder Problems Y GI Problems Y Anemia Y Heart Attack (MA) Y Diabetes Y Bleeding Disorder Congestive Heart Failure (CHF) Y Back Problems Y Reflux/GERD Y Heart Disease Y Hypertension Y Gynecological HistoryNo gynecological history recorded. Obstetrics History GPAL:G 0 P 0 0 0 0 Immunizations Vaccine Type Date Status Note Provider Nam e and Address Organization Details Recorded Time Influenza, split virus, trivalent, preservative 0 completed Not Available [facility] 06/14/2025 13:50:39 Influenza, high-dose, trivalent, PF 0 completed Not Available [facility] 06/14/2025 13:50:39 COVID-19, mRNA, LNP-S, PF, 30 mcg/0.3 mL dose 1 completed Not Available [facility] 06/14/2025 13:50:39 COVID-19, mRNA, LNP-S, PF, 30 mcg/0.3 mL dose 1 completed Not Available [facility] 06/14/2025 13:50:39 Influenza, high-dose, quadrivalent, PF 1 completed Not Available [facility] 06/14/2025 13:50:39 COVID-19, mRNA, LNP-S, PF, 30 mcg/0.3 mL dose 1 completed Not Available [facility] 06/14/2025 13:50:39 Influenza, high-dose, quadrivalent, PF 2 completed Not Available [facility] 06/14/2025 13:50:39 Tdap 3 completed Not Available [facility] 06/14/2025 13:50:39 COVID-19, mRNA, LNP-S, PF, 50 mcg/0.5 mL 3 completed Not Available [facility] 06/14/2025 13:50:39 Influenza, adjuvanted, quadrivalent, PF 3 completed Not Available [facility] 06/14/2025 13:50:39 Influenza, high-dose, quadrivalent, PF 5 completed Not Available [facility] 06/14/2025 13:50:39 Past Encounters Encounter ID Performer Location Encounter Start Date Encounter Closed Date Diagnosis/Indication Diagnosis SNOMED-CT Code Diagnosis ICD10 Code Diagnosis IMO Codes Diagnosis Note [id number] Stas Taylor PA-C [facility] [address] [facility] [address] [place] [address] 06/14/2025 13:46:38 06/14/2025 14:29:34 Iron deficiency anemia 07070898 D50.9 [id number] -We will schedule EGD and colonoscop y for further evaluation . We will request cardiac clearance prior to the procedures . She will continue oral and IV iron as well as close monitoring of H & H at her nursing facility. Melena 6982271 K92.1 7672 Acquired arteriovenous malformation 8562495704 108 K31.819 [id number] Noted on remote EGD. Hemostasis clip was placed at that time. Health Concerns Section Related Observation LastModified by Organization Detai ls LastModified Time None Recorded Concern Status LastModified by Organization Details LastModified Time None Recorded Payers Encounter Date Sequence Insurance Name Policy Number Policy Garcia Covered Member ID Garcia Member ID Guarantor Name 06/14/2025 1 [employer] (MEDICARE REPLACEMENT/ ADVANTAGE - PPO) [id number] Lyssa Jacksonley [id number] Lyssa Kirk Gisela Notes Date Note Type Note Provider Name and Address Organization Details Recorded Time 06/14/2025 text/html Ms. Higgins is a very pleasant 84-year-old female resident of [facility] in [place] who is referred for evaluation of melena [...] denies hematemesis or hematochezia. Stas Taylor PA-C [address] [facility], [place], [address], [facility] - [facility] [place] & [place] 06/14/2025 19:26:48 OBGyn Episode No OBEpisode recorded.
--- OUTSIDE RECORDS SUMMARY | 2025-06-22 13:02 | XMS_ITS | Patient Health Record ---
Author Organization [id number] [facility] Address [address] [place], [place] [id number] Support Name Relationship Address Phone Lyssa Higgins Guarantor Unknown Reason For Referral No Information Plan Of Treatment No Information Insurance Providers Payer Name Payer Address Payer Phone Subscriber Number Group Number Insured Name Patient Relationship to Insured Coverage Start Date Coverage End Date [employer] PPO MEDICARE [address] [address] [place], [place] [id number] [phone] [id number] Lyssa Higgins Self - patient is the insured 3
--- OUTSIDE RECORDS SUMMARY | 2025-06-22 13:03 | XMS_ITS | Clinical Summary ---
Author Organization [employer] ([place], [place], [place], [place]) Address [address] [place] [address] Care Team Providers Care Clerk Carrier Name Role Phone Anand Noble MD Primary [...] - 05/29/2025 4:43 PM EDT Hospital Encounter [address] Medical Telemetry Unit 1 [place] [address] Alan Vargas DO Elsallabi, Osama, MD Discharge Disposition: Assisted Facility 05/27/2025 Travel from Last 3 Months [...] Date Juan rded Speak language other than Haitian at home Not on file 09/01/2023 Want [...] resultswithin the time period is included. Pathologist [facility] POC-GLUCOSE 183(H) 70 - 110 mg/dL 05/29/2025 10:47 AM EDT [facility] Comment: In the event of poor peripheral blood flow, venous or arterial blood should be used due to the potential of erroneous results. Notified Nurse RBV Dinkey Brakeman [phone] 05/29/2025 10:47 AM EDT [facility] Blood WHOLE BLOOD / Unknown 05/29/2025 10:46 AM EDT 05/29/2025 10:47 AM EDT Narrative [facility] - 05/29/2025 10:47 AM EDT Dinkey Brakeman ID is - [id number] Vane Corley MD POINT OF CARE TEST ORDERABLES Final Result [facility] [address] [phone] * (ABNORMAL) CBC with Automated Diff (05/29/2025 2:50 AM EDT) Only the most recent of2 resultswithin the time period is included. [facility] WBC 8.1 4.0 - 10.0 K/ L 05/29/2025 3:24 AM EDT [facility] RBC 2.66(L) 3.93 - 5.22 M/ L 05/29/2025 3:24 AM EDT [facility] Hemoglobin 8.0(L) 11.2 - 15.7 GM/DL 05/29/2025 3:24 AM EDT [facility] Hematocrit 25.6(L) 34.1 - 44.9 % 05/29/2025 3:24 AM EDT [facility] MCV 96(H) 79 - 95 fL 05/29/2025 3:24 AM EDT [facility] MCH 30.1 25.6 - 32.2 pg 05/29/2025 3:24 AM EDT [facility] MCHC 31.3(L) 32.2 - 35.5 GM/DL 05/29/2025 3:24 AM EDT [facility] RDW 18.7(H) 11.7 - 14.4 % 05/29/2025 3:24 AM EDT [facility] Platelets 215 140 - 375 K/CU MM 05/29/2025 3:24 AM EDT [facility] MPV 10.5 9.4 - 12.3 fL 05/29/2025 3:24 AM EDT [facility] % Neutros 71 34 - 71 % 05/29/2025 3:24 AM EDT [facility] % Lymphs 15(L) 19 - 52 % 05/29/2025 3:24 AM EDT [facility] % Monos 12 5 - 13 % 05/29/2025 3:24 AM EDT [facility] % Eos 2 1 - 6 % 05/29/2025 3:24 AM EDT [facility] % Baso 0 0 - 1 % 05/29/2025 3:24 AM EDT [facility] NRBC Absolute <0.01 0 - 0.012 K/ul 05/29/2025 3:24 AM EDT [facility] # Neutros 5.67 1.56 - 6.13 K/ L 05/29/2025 3:24 AM EDT [facility] # Lymphs 1.20 1.18 - 3.74 K/ L 05/29/2025 3:24 AM EDT [facility] # Monos 0.99(H) 0.24 - 0.86 K/ L 05/29/2025 3:24 AM EDT [facility] # Eos 0.13 0.04 - 0.36 K/ L 05/29/2025 3:24 AM EDT [facility] # Baso <0.03 0.01 - 0.08 K/ L 05/29/2025 3:24 AM EDT [facility] % Imm Grans 0.50(H) 0.01 - 0.43 % 05/29/2025 3:24 AM EDT [facility] # IG 0.04(H) 0.00 - 0.03 K/uL 05/29/2025 3:24 AM EDT [facility] Blood Venipuncture / Unknown 05/29/2025 2:50 AM EDT 05/29/2025 3:17 AM EDT Narrative [facility] - 05/29/2025 3:24 AM [...] MD LAB BLOOD ORDERABLES Final Re sult [facility] [address] [phone] * (ABNORMAL) Basic Metabolic Panel (05/29/2025 2:50 AM EDT) Only the most recent of3 resultswithin the time period is included. Sodium 143 136 - 145 meq/L 05/29/2025 3:48 AM EDT [facility] Potassium 4.6 3.4 - 5.1 meq/L 05/29/2025 3:48 AM EDT [facility] CO2 20(L) 22 - 29 meq/L 05/29/2025 3:48 AM EDT [facility] Chloride 113(H) 98 - 112 meq/L 05/29/2025 3:48 AM EDT [facility] Glucose 134(H) 82 - 115 mg/dL 05/29/2025 3:48 AM EDT [facility] BUN 83.4(H) 9.8 - 20.1 mg/dL 05/29/2025 3:48 AM EDT [facility] Creatinine 3.13(H) 0.57 - 1.11 mg/dL 05/29/2025 3:48 AM EDT [facility] BUN/Creatinine 27(H) 8 - 20 05/29/2025 3:48 AM EDT [facility] Calcium 8.7 8.4 - 10.2 mg/dL 05/29/2025 3:48 AM EDT [facility] Anion Gap 15(H) 4 - 12 05/29/2025 3:48 AM EDT [facility] eGFR (mL/min/1.73m2) 14(L) >=60 mL/min/1.7 3m2 05/29/2025 3:48 AM EDT [facility] Comment:ESTIMATED GFR IS NOT ACCURATE CREATININE CLEARANCE IN PREDICTING GLOMERULAR FILTRATION RATE. ESTIMATED GFR IS NOT APPLICABLE FOR DIALYSIS PATIENTS. Osmolality Calc 312.2 mOsm/kg 3:48 AM EDT [facility] Blood Venipuncture / Unknown 05/29/2025 2:50 AM EDT 05/29/2025 3:18 AM EDT us Vane Corley MD LAB BLOOD ORDERABLES Final Re sult Performing Organization Address [facility]/ZIP Co de Phone Number [facility] [address] [phone] * Urea Nitrogen, random urine (05/28/2025 1:19 PM EDT) Urea Nitrogen, Ur 562 mg/dL 05/28/2025 1:45 PM EDT [facility] Comment: Reference Range not established Reference range not established Urine 05/28/2025 1:19 PM EDT 05/28/2025 1:21 PM EDT us Pa Santos MD URINE ORDERABLES Final Result Performing Organization Address [facility]/ZIP Co de Phone Number [facility] [address] [phone] * (ABNORMAL) Protein / creatinine ratio, urine (05/28/2025 1:19 PM EDT) Creatinine, Ur 39.00(L) 47.00 - 110.00 mg/dL 05/28/2025 1:45 PM EDT [facility] Protein Creatinine Ratio 1.95(H) <=0.20 05/28/2025 1:45 PM EDT [facility] Protein, Urine 76(H) 1 - 14 mg/dL 05/28/2025 1:45 PM EDT [facility] Urine 05/28/2025 1:19 PM EDT 05/28/2025 1:21 PM EDT Pa Santos MD URINE ORDERABLES Final Result Performing Organization Address [facility]/ZIP Co de Phone Number [facility] [address] [phone] * Sodium, random urine (05/28/2025 1:19 PM EDT) Sodium Urine 56 See Comment meq/L 05/28/2025 1:45 PM EDT [facility] Comment:Reference Range not established Urine 05/28/2025 1:19 PM EDT 05/28/2025 1:21 PM EDT Pa Santos MD URINE ORDERABLES Final Result Performing Organization Address [facility] Co de Phone Number [facility] [address] [phone] * (ABNORMAL) Urinalysis w/Microscopic (05/28/2025 1:19 PM EDT) Color, UA Light Yellow 05/28/2025 1:29 PM EDT [facility] Clarity, UA Clear Clear 05/28/2025 1:29 PM EDT [facility] Specific [place], UA 1.012 1.005 - 1.030 05/28/2025 1:29 PM EDT [facility] pH, UA 5.5(L) 6.0 - 8.0 05/28/2025 1:29 PM EDT [facility] Leukocytes, UA Negative Negative 05/28/2025 1:29 PM EDT [facility] Nitrite, UA Negative Negative 05/28/2025 1:29 PM EDT [facility] Protein, UA 1+(A) Negative 05/28/2025 1:29 PM EDT [facility] Glucose, UA 4+(A) Normal 05/28/2025 1:29 PM EDT [facility] Ketones, UA Negative Negative 05/28/2025 1:29 PM EDT [facility] Urobilinogen, UA Normal Normal 05/28/2025 1:29 PM EDT [facility] Bilirubin, UA Negative Negative 05/28/2025 1:29 PM EDT [facility] Blood, UA Negative Negative 05/28/2025 1:29 PM EDT [facility] RBC, UA 0-2(A) None Seen /HPF 05/28/2025 1:29 PM EDT [facility] WBC, UA 0-2(A) None Seen /HPF 05/28/2025 1:29 PM EDT [facility] Bacteria, UA None Seen None Seen, Trace 05/28/2025 1:29 PM EDT [facility] SQUAMOUS EPITHELIAL 0-2(A) None Seen /HPF 05/28/2025 1:29 PM EDT [facility] Specimen Source Urine, Sterile Collection 05/28/2025 1:29 PM EDT [facility] Urine STERILE URINE SPECIMEN CONTAINER / Unknown 05/28/2025 1:19 PM EDT 05/28/2025 1:24 PM EDT Pa Santos MD URINE ORDERABLES Final Result Performing Organization Address City/State/[facility] Co de Phone Number [facility] [address] [phone] * (ABNORMAL) CBC - Hemogram (SJ-BKR) (05/28/2025 6:26 AM EDT) WBC 7.8 4.0 - 10.0 K/ L 05/28/2025 6:43 AM EDT [facility] RBC 2.59(L) 3.93 - 5.22 M/ L 05/28/2025 6:43 AM EDT [facility] Hemoglobin 7.9(L) 11.2 - 15.7 GM/DL 05/28/2025 6:43 AM EDT [facility] Hematocrit 24.7(L) 34.1 - 44.9 % 05/28/2025 6:43 AM EDT [facility] MCV 95 79 - 95 fL 05/28/2025 6:43 AM EDT [facility] MCH 30.5 25.6 - 32.2 pg 05/28/2025 6:43 AM EDT [facility] MCHC 32.0(L) 32.2 - 35.5 GM/DL 05/28/2025 6:43 AM EDT [facility] RDW 18.3(H) 11.7 - 14.4 % 05/28/2025 6:43 AM EDT [facility] Platelets 193 140 - 375 K/CU MM 05/28/2025 6:43 AM EDT [facility] MPV 10.7 9.4 - 12.3 fL 05/28/2025 6:43 AM EDT [facility] Blood Venipuncture / Unknown 05/28/2025 6:26 AM EDT 05/28/2025 6:33 AM EDT us Vane Corley MD LAB BLOOD ORDERABLES Final Re sult Performing Organization Address City/[facility]/ZIP Co de Phone Number [facility] [address] [phone] * (ABNORMAL) Uric acid (05/28/2025 6:26 AM EDT) Uric Acid 6.7(H) 2.5 - 6.2 mg/dL 05/28/2025 12:09 PM EDT [facility] Blood Venipuncture / Unknown 05/28/2025 6:26 AM EDT 05/28/2025 6:33 AM EDT us Pa Santos MD LAB BLOOD ORDERABLES Final Resu lt [facility] [address] [phone] * Magnesium (05/28/2025 6:26 AM EDT) Magnesium 1.8 1.6 - 2.6 mg/dL 05/28/2025 6:38 PM EDT [facility] Blood Venipuncture / Unknown 05/28/2025 6:26 AM EDT 05/28/2025 6:33 AM EDT us Vane Corley MD LAB BLOOD ORDERABLES Final Re sult [facility] [address] [phone] * Lactate dehydrogenase (LDH) (05/28/2025 6:26 AM EDT) LDH 165 125 - 220 U/L 05/28/2025 12:09 PM EDT [facility] Blood Venipuncture / Unknown 05/28/2025 6:26 AM EDT 05/28/2025 6:33 AM EDT us Pa Santos MD LAB BLOOD ORDERABLES Final Resu lt Performing Organization Address [facility]/ZIP Co de Phone Number [facility] [address] [phone] * Creatine Kinase (CK) (05/28/2025 6:26 AM EDT) Total CK 41 29 - 168 U/L 05/28/2025 12:09 PM EDT [facility] Blood Venipuncture / Unknown 05/28/2025 6:26 AM EDT 05/28/2025 6:33 AM EDT us Pa Santos MD LAB BLOOD ORDERABLES Final Resu lt Performing Organization Address [facility] Co de Phone Number [facility] [address] [phone] * Transfuse RBC (05/28/2025 5:09 AM EDT) Only the most recent of2 resultswithin the time period is included. Karlo Hercules PA-C FS_MODEL_IP_BLOOD TRANSFUSION ORDERABLES Final Result * Prepare RBC: 1 Units (05/27/2025 10:54 PM EDT) Only the most recent of2 resultswithin the time period is included. Pathologist [facility] Issue Date/Time [id number] [facility] BLOOD [facility] [place] Product Identification Red Blood Cells [facility] [place]) Product Code [id number] [facility] [place] Status Information TRANSFUSED [facility] [place] Unit [place] [id number] [facility] BLOOD [facility] [place] Blood Type 5100 [facility] [place] Cross Match Results Compatible [facility] [place] Karlo Hercules PA-C FS_MODEL_IP_BLOOD BANK PRODUCT ORDERABLES Final Result Performing Organization Address City/[facility]/ZIP Co de Phone Number [facility] [place] [address] [phone] * (ABNORMAL) Hemoglobin and hematocrit (05/27/2025 10:34 PM EDT) [facility] Hemoglobin 6.4(LL) 11.2 - 15.7 GM/DL 05/27/2025 10:42 PM EDT [facility] Hematocrit 19.7(L) 34.1 - 44.9 % 05/27/2025 10:42 PM EDT [facility] Blood Venipuncture / Unknown 05/27/2025 10:34 PM EDT 05/27/2025 10:38 PM EDT Vane Corley MD LAB BLOOD ORDERABLES Final Re sult [facility] [address] [phone] * Type and Screen (05/27/2025 3:48 PM EDT) [facility] ABO/Rh O Positive 05/27/2025 3:54 PM EDT [facility] ([place]) Antibody Screen Negative 05/27/2025 3:54 PM EDT [facility] ([place] HISTCHK HIST CHECK PERFORMED 05/27/2025 3:54 PM EDT [facility] ([place] Blood Venipuncture / Unknown 05/27/2025 3:48 PM EDT 05/27/2025 3:54 PM EDT us Vane Corley MD [facility] BLOOD BANK TEST ORDERABLE S Final Result [facility] [place] [address] [place] [address], [facility] [phone] * (ABNORMAL) Iron and TIBC (05/27/2025 3:47 PM EDT) Iron 74 50 - 170 ug/dL 05/27/2025 4:30 PM EDT [facility] TIBC 203(L) 250 - 435 ug/dL 05/27/2025 4:30 PM EDT [facility] % Saturation 36 % 05/27/2025 4:30 PM EDT [facility] UIBC 129 05/27/2025 4:30 PM EDT [facility] Blood Venipuncture / Unknown 05/27/2025 3:47 PM EDT 05/27/2025 3:53 PM EDT us Vane Corley MD LAB BLOOD ORDERABLES Final Re sult [facility] 1 [place] [address], [facility] [phone] * Ferritin (05/27/2025 3:47 PM EDT) Ferritin 115.24 4.63 - 204.00 ng/mL 05/27/2025 4:30 PM EDT [facility] Blood Venipuncture / Unknown 05/27/2025 3:47 PM EDT 05/27/2025 3:53 PM EDT us Vane Corley MD LAB BLOOD ORDERABLES Final Re sult [facility] 1 [place] [address], [facility] [phone] from Last 3 Months Insurance [employer] MED[employer] PPO Advance Directives For more information, please contact: [phone] * Full Code (Latest Code Status on File) Date Activated Date Inactivated Comments 05/27/2025 2:15 PM 05/29/2025 5:45 PM * Full Code Date Activated Date Inactivated Comments 07/25/2023 6:51 AM 08/24/2023 6:19 PM Care Teams Clerk Carrier Relationship Specialty Start Date End Date [place] [address] PCP - General Family Medicine 07/29/23
--- OUTSIDE RECORDS SUMMARY | 2025-06-22 13:03 | XMS_ITS | Referral Summary ---
Author Organization [email or web address] ([place], [place], [place], [place]) Address [address] [place] [address] Care Team Providers Care Back Filler Operator Name Role Phone Anand Noble MD Primary Care Provider Encounters Date Type Department Care Team Description 05/27/2025 3:02 PM EDT - 05/29/2025 4:43 PM EDT Hospital Encounter [address] Medical Telemetry Unit 1 [place] [address] Alan Vargas DO Elsallabi, Osama, MD Discharge Disposition: Senior Living Facility 05/27/2025 Travel from Last 3 Months [...] Date Juan rded Speak language other than Belgian at home Not on file 09/01/2023 Want [...] - 110 mg/dL 05/29/2025 10:47 AM EDT [facility] Comment: In the event of poor peripheral blood flow, venous or arterial blood should be used due to the potential of erroneous results. Notified Nurse RBV Horticultural Services Supervisor [phone] 05/29/2025 10:47 AM EDT [facility] Blood WHOLE BLOOD / Unknown 05/29/2025 10:46 AM EDT 05/29/2025 10:47 AM EDT Narrative [facility] - 05/29/2025 10:47 AM EDT Horticultural Services Supervisor ID is - [id number] Vane Corley MD POINT OF CARE TEST ORDERABLES Final Result [facility] 1 [place], [place] [address] [phone] * (ABNORMAL) CBC with Automated Diff (05/29/2025 2:50 AM EDT) Only the most recent of2 resultswithin the time period is included. WBC 8.1 4.0 - 10.0 K/ L 05/29/2025 3:24 AM EDT [facility] RBC 2.66(L) 3.93 - 5.22 M/ L 05/29/2025 3:24 AM EDT [facility] Hemoglobin 8.0(L) 11.2 - 15.7 GM/DL 05/29/2025 3:24 AM EDT [facility] Hematocrit 25.6(L) 34.1 - 44.9 % 05/29/2025 3:24 AM EDT [facility] MCV 96(H) 79 - 95 fL 05/29/2025 3:24 AM EDT [facility] MCH 30.1 25.6 - 32.2 pg 05/29/2025 3:24 AM EDT [facility] MCHC 31.3(L) 32.2 - 35.5 GM/DL 05/29/2025 3:24 AM EDT [facility] RDW 18.7(H) 11.7 - 14.4 % 05/29/2025 3:24 AM EDT [facility] Platelets 215 140 - 375 K/CU MM 05/29/2025 3:24 AM EDT [facility] MPV 10.5 9.4 - 12.3 fL 05/29/2025 3:24 AM EDT [facility] % Neutros 71 34 - 71 % 05/29/2025 3:24 AM EDT [facility] % Lymphs 15(L) 19 - 52 % 05/29/2025 3:24 AM EDT [facility] % Monos 12 5 - 13 % 05/29/2025 3:24 AM EDT [facility] % Eos 2 1 - 6 % 05/29/2025 3:24 AM EDT [facility] % Baso 0 0 - 1 % 05/29/2025 3:24 AM EDT [facility] NRBC Absolute <0.01 0 - 0.012 K/ul 05/29/2025 3:24 AM EDT [facility] # Neutros 5.67 1.56 - 6.13 K/ L 05/29/2025 3:24 AM EDT [facility] # Lymphs 1.20 1.18 - 3.74 K/ L 05/29/2025 3:24 AM EDT [facility] # Monos 0.99(H) 0.24 - 0.86 K/ L 05/29/2025 3:24 AM EDT [facility] # Eos 0.13 0.04 - 0.36 K/ L 05/29/2025 3:24 AM EDT [facility] # Baso <0.03 0.01 - 0.08 K/ L 05/29/2025 3:24 AM EDT [facility] % Imm Grans 0.50(H) 0.01 - 0.43 % 05/29/2025 3:24 AM EDT [facility] # IG 0.04(H) 0.00 - 0.03 K/uL 05/29/2025 3:24 AM EDT [facility] Blood Venipuncture / Unknown 05/29/2025 2:50 AM EDT 05/29/2025 3:17 AM EDT Narrative [facility] - 05/29/2025 3:24 AM EDT When [...] MD LAB BLOOD ORDERABLES Final Re sult [facility] [address] [phone] * (ABNORMAL) Basic Metabolic Panel (05/29/2025 2:50 AM EDT) Only the most recent of3 resultswithin the time period is included. Sodium 143 136 - 145 meq/L 05/29/2025 3:48 AM EDT [facility] Potassium 4.6 3.4 - 5.1 meq/L 05/29/2025 3:48 AM EDT [facility] CO2 20(L) 22 - 29 meq/L 05/29/2025 3:48 AM EDT [facility] Chloride 113(H) 98 - 112 meq/L 05/29/2025 3:48 AM EDT [facility] Glucose 134(H) 82 - 115 mg/dL 05/29/2025 3:48 AM EDT [facility] BUN 83.4(H) 9.8 - 20.1 mg/dL 05/29/2025 3:48 AM EDT [facility] Creatinine 3.13(H) 0.57 - 1.11 mg/dL 05/29/2025 3:48 AM EDT [facility] BUN/Creatinine 27(H) 8 - 20 05/29/2025 3:48 AM EDT [facility] Calcium 8.7 8.4 - 10.2 mg/dL 05/29/2025 3:48 AM EDT [facility] Anion Gap 15(H) 4 - 12 05/29/2025 3:48 AM EDT [facility] eGFR (mL/min/1.73m2) 14(L) >=60 mL/min/1.7 3m2 05/29/2025 3:48 AM EDT [facility] Comment:ESTIMATED GFR IS NOT ACCURATE CREATININE CLEARANCE IN PREDICTING GLOMERULAR FILTRATION RATE. ESTIMATED GFR IS NOT APPLICABLE FOR DIALYSIS PATIENTS. Osmolality Calc 312.2 mOsm/kg 3:48 AM EDT [facility] Blood Venipuncture / Unknown 05/29/2025 2:50 AM EDT 05/29/2025 3:18 AM EDT us Vane Corley MD LAB BLOOD ORDERABLES Final Re sult [facility] [address] [place] [id number], [facility] [phone] * Urea Nitrogen, random urine (05/28/2025 1:19 PM EDT) Urea Nitrogen, Ur 562 mg/dL 05/28/2025 1:45 PM EDT [facility] Comment: Reference Range not established Reference range not established Urine 05/28/2025 1:19 PM EDT 05/28/2025 1:21 PM EDT us Pa Santos MD URINE ORDERABLES Final Result Performing Organization Address [facility]/ZIP Co de Phone Number [facility] [address] [phone] * (ABNORMAL) Protein / creatinine ratio, urine (05/28/2025 1:19 PM EDT) Creatinine, Ur 39.00(L) 47.00 - 110.00 mg/dL 05/28/2025 1:45 PM EDT [facility] Protein Creatinine Ratio 1.95(H) <=0.20 05/28/2025 1:45 PM EDT [facility] Protein, Urine 76(H) 1 - 14 mg/dL 05/28/2025 1:45 PM EDT [facility] Urine 05/28/2025 1:19 PM EDT 05/28/2025 1:21 PM EDT us Pa Santos MD URINE ORDERABLES Final Result Performing Organization Address [facility] Co de Phone Number [facility] [address] [phone] * Sodium, random urine (05/28/2025 1:19 PM EDT) Sodium Urine 56 See Comment meq/L 05/28/2025 1:45 PM EDT [facility] Comment:Reference Range not established Urine 05/28/2025 1:19 PM EDT 05/28/2025 1:21 PM EDT us Pa Santos MD URINE ORDERABLES Final Result Performing Organization Address City/[facility]/ZIP Co de Phone Number [facility] [address] [phone] * (ABNORMAL) Urinalysis w/Microscopic (05/28/2025 1:19 PM EDT) Color, UA Light Yellow 05/28/2025 1:29 PM EDT [facility] Clarity, UA Clear Clear 05/28/2025 1:29 PM EDT [facility] Specific [place], UA 1.012 1.005 - 1.030 05/28/2025 1:29 PM EDT [facility] pH, UA 5.5(L) 6.0 - 8.0 05/28/2025 1:29 PM EDT [facility] Leukocytes, UA Negative Negative 05/28/2025 1:29 PM EDT [facility] Nitrite, UA Negative Negative 05/28/2025 [facility] Protein, UA 1+(A) Negative 05/28/2025 1:29 PM EDT [facility] Glucose, UA 4+(A) Normal 05/28/2025 1:29 PM EDT [facility] Ketones, UA Negative Negative 05/28/2025 1:29 PM EDT [facility] Urobilinogen, UA Normal Normal 05/28/2025 1:29 PM EDT [facility] Bilirubin, UA Negative Negative 05/28/2025 1:29 PM EDT [facility] Blood, UA Negative Negative 05/28/2025 1:29 PM EDT [facility] RBC, UA 0-2(A) None Seen /HPF 05/28/2025 1:29 PM EDT [facility] WBC, UA 0-2(A) None Seen /HPF 05/28/2025 1:29 PM [facility] Bacteria, UA None Seen None Seen, Trace 05/28/2025 1:29 PM [facility] SQUAMOUS EPITHELIAL 0-2(A) None Seen /HPF 05/28/2025 1:29 PM [facility] Specimen Source Urine, Sterile Collection 05/28/2025 1:29 PM [facility] Urine STERILE URINE SPECIMEN CONTAINER / Unknown 05/28/2025 1:19 PM EDT 05/28/2025 1:24 PM EDT us Pa Santos MD URINE ORDERABLES Final Result [facility] [address] [phone] * (ABNORMAL) CBC - Hemogram (SJ-BKR) (05/28/2025 6:26 AM EDT) WBC 7.8 4.0 - 10.0 K/ L 05/28/2025 6:43 AM EDT [facility] RBC 2.59(L) 3.93 - 5.22 M/ L 05/28/2025 6:43 AM EDT [facility] Hemoglobin 7.9(L) 11.2 - 15.7 GM/DL 05/28/2025 6:43 AM EDT [facility] Hematocrit 24.7(L) 34.1 - 44.9 % 05/28/2025 6:43 AM EDT [facility] MCV 95 79 - 95 fL 05/28/2025 6:43 AM EDT [facility] MCH 30.5 25.6 - 32.2 pg 05/28/2025 6:43 AM EDT [facility] MCHC 32.0(L) 32.2 - 35.5 GM/DL 05/28/2025 6:43 AM EDT [facility] RDW 18.3(H) 11.7 - 14.4 % 05/28/2025 6:43 AM EDT [facility] Platelets 193 140 - 375 K/CU MM 05/28/2025 6:43 AM EDT [facility] MPV 10.7 9.4 - 12.3 fL 05/28/2025 6:43 AM EDT [facility] Blood Venipuncture / Unknown 05/28/2025 6:26 AM EDT 05/28/2025 6:33 AM EDT us Vane Corley MD LAB BLOOD ORDERABLES Final Re sult [facility] [address] [phone] * (ABNORMAL) Uric acid (05/28/2025 6:26 AM EDT) Uric Acid 6.7(H) 2.5 - 6.2 mg/dL 05/28/2025 12:09 PM EDT [facility] Blood Venipuncture / Unknown 05/28/2025 6:26 AM EDT 05/28/2025 6:33 AM EDT us Pa Santos MD LAB BLOOD ORDERABLES Final Resu lt Performing Organization Address [facility] Co de Phone Number [facility] [address] [phone] * Magnesium (05/28/2025 6:26 AM EDT) Magnesium 1.8 1.6 - 2.6 mg/dL 05/28/2025 6:38 PM EDT [facility] Blood Venipuncture / Unknown 05/28/2025 6:26 AM EDT 05/28/2025 6:33 AM EDT us Vane Corley MD LAB BLOOD ORDERABLES Final Re sult Performing Organization Address [facility]/ZIP Co de Phone Number [facility] [address] [phone] * Lactate dehydrogenase (LDH) (05/28/2025 6:26 AM EDT) LDH 165 125 - 220 U/L 05/28/2025 12:09 PM EDT [facility] Blood Venipuncture / Unknown 05/28/2025 6:26 AM EDT 05/28/2025 6:33 AM EDT us Pa Santos MD LAB BLOOD ORDERABLES Final Resu lt Performing Organization Address City/[facility]/ZIP Co de Phone Number [facility] [address] [phone] * Creatine Kinase (CK) (05/28/2025 6:26 AM EDT) Total CK 41 29 - 168 U/L 05/28/2025 12:09 PM EDT [facility] Blood Venipuncture / Unknown 05/28/2025 6:26 AM EDT 05/28/2025 6:33 AM EDT Pa Santos MD LAB BLOOD ORDERABLES Final Resu lt Performing Organization Address [facility] Co de Phone Number [facility] [address] [phone] * Transfuse RBC (05/28/2025 5:09 AM EDT) Only the most recent of2 resultswithin the time period is included. Karlo Hercules PA-C FS_MODEL_IP_BLOOD TRANSFUSION ORDERABLES Final Result * Prepare RBC: 1 Units (05/27/2025 10:54 PM EDT) Only the most recent of2 resultswithin the time period is included. Issue Date/Time [id number] [facility] ([place]) Product Identification Red Blood Cells [facility] ([place]) Product Code [id number] [facility] ([place]) Status Information TRANSFUSED [facility] ([place]) Unit Number [id number] [facility] ([place]) Blood Type 5100 [facility] ([place]) Cross Match Results Compatible [facility] ([place]) us Karlo Hercules PA-C FS_MODEL_IP_BLOOD BANK PRODUCT ORDERABLES Final Result Performing Organization Address [facility] Co de Phone Number [facility] ([place]) [address] [place] [address], [facility] [phone] * (ABNORMAL) Hemoglobin and hematocrit (05/27/2025 10:34 PM EDT) Hemoglobin 6.4(LL) 11.2 - 15.7 GM/DL 05/27/2025 10:42 PM EDT [facility] Hematocrit 19.7(L) 34.1 - 44.9 % 05/27/2025 10:42 PM EDT [facility] Blood Venipuncture / Unknown 05/27/2025 10:34 PM EDT 05/27/2025 10:38 PM EDT us Vane Corley MD LAB BLOOD ORDERABLES Final Re sult Performing Organization Address City/[facility]/ZIP Co de Phone Number [facility] [address] [phone] * Type and Screen (05/27/2025 3:48 PM EDT) ABO/Rh O Positive 05/27/2025 3:54 PM EDT [facility] ([place]) Antibody Screen Negative 05/27/2025 3:54 PM EDT [facility] ([place]) HISTCHK HIST CHECK PERFORMED 05/27/2025 3:54 PM EDT [facility] ([place]) Blood Venipuncture / Unknown 05/27/2025 3:48 PM EDT 05/27/2025 3:54 PM EDT us Vane Corley MD [facility] TEST ORDERABLE S Final Result [facility] ([place]) [address] [place] [address], [facility] [phone] * (ABNORMAL) Iron and TIBC (05/27/2025 3:47 PM EDT) Iron 74 50 - 170 ug/dL 05/27/2025 4:30 PM EDT [facility] TIBC 203(L) 250 - 435 ug/dL 05/27/2025 4:30 PM EDT [facility] % Saturation 36 % 05/27/2025 4:30 PM EDT [facility] UIBC 129 05/27/2025 4:30 PM EDT [facility] Blood Venipuncture / Unknown 05/27/2025 3:47 PM EDT 05/27/2025 3:53 PM EDT us Vane Corley MD LAB BLOOD ORDERABLES Final Re sult Performing Organization Address City/[facility]/ZIP Co de Phone Number [facility] [address] [phone] * Ferritin (05/27/2025 3:47 PM EDT) [facility] Signature Ferritin 115.24 4.63 - 204.00 ng/mL 05/27/2025 4:30 PM EDT [facility] Blood Venipuncture / Unknown 05/27/2025 3:47 PM EDT 05/27/2025 3:53 PM EDT us Vane Corley MD LAB BLOOD ORDERABLES Final Re sult Performing Organization Address City/[facility] Co de Phone Number [facility] [address] [phone] from Last 3 Months Insurance MEDICARE PPO Advance Directives For more information, please contact: [phone] * Full Code (Latest Code Status on File) Date Activated Date Inactivated Comments 05/27/2025 2:15 PM 05/29/2025 5:45 PM * Full Code Date Activated Date Inactivated Comments 07/25/2023 6:51 AM 08/24/2023 6:19 PM Care Teams Back Filler Operator Relationship Specialty Start Date End Date Anand Noble MD [address] [place] [phone] PCP - General Family Medicine 07/29/23
[2025-06-22 13:12] LABS: Hematocrit 24.5 % (37.0-47.0); Hemoglobin 7.4 g/dL (12.2-16.2)
[2025-06-22 13:17] LABS: Potassium 4.6 mmoL/L (3.5-5.1)
[2025-06-22] MEDS: EPOETIN 20,000 UNITS/ML MDV 20000 UNIT SUBCUT (13:40)
[2025-06-22 13:45] VITALS: BP 152/39; PULSE 63; RESP 18; TEMP 36.6; O2SAT 96
[2025-06-22 14:10] LABS: Creatinine Clearance Estimated 13 mL/min (50-200); Creatinine,Serum 3.40 mg/dl (0.52-1.04); Estimated Glomerular Filt Rate 13 ml/min (>60); GFR (African American) 16 ML/MIN (>60)
== END 2025-06-22 13:55 | disposition home or self-care (01) ==
LOC: INF 12:56
PROVIDERS: PCP Nurse Practitioner Family; Visit Provider Hospitalist
DX: N18.4 Chronic kidney disease, stage 4 (severe) (principal); D63.1 Anemia in chronic kidney disease
CPT/HCPCS: 82565; 84132; 85014; 85018; 96372; J0885

== ENCOUNTER 2025-07-06 13:14 | Outpatient (CLI) | payer MEDICARE, SELFPAY ==
--- OUTSIDE RECORDS SUMMARY | 2025-03-25 04:00 | XMS_ITS ---
Author Organization [facility] Address [address] [place] [address] Phone [phone] Care Team Providers Care Qm Nurse Name Role Phone Lyssa Trejo Unavailable [phone] Migration, Provider Unavailable Unavailable REASON FOR VISIT EMR-Steven Encounters Encounter Location Date Provider Diagnosis [facility] [address] [place] [address] 03/25/2025 Provider Migration Plan Of Treatment No Information Progress Notes * LYSSA SABADOB:[birth year] (84 yo F)Acc No.[id number]:03/25/2025 Patient: Lisa GREENELYSSA JACOBS :1940 A ge:84 Y S ex:Female [facility] [address] Subjective: * Chief Complaints: * E MR-Steven * * Date:
--- OUTSIDE RECORDS SUMMARY | 2025-03-26 04:00 | XMS_ITS ---
Author Organization [facility] bertha [facility] Address [address] [place] [address] Phone [phone] Care Team Providers Care Ski Top Trimmer Name Role Phone Lyssa Trejo Unavailable [phone] Migration, Provider Unavailable Unavailable REASON FOR VISIT EMR-Steven Medications Medication SIG (Take, Route, Frequency, Duration) Notes Start Date End Date Status Ferrous Sulfate 325 (65 Fe) MG Tablet Oral Active Ventolin HFA 108 (90 Base) MCG/ACT Aerosol Solution Inhalation Active FLUZONE HIGH-DOSE 2019-20 (PF) 180 MCG/0.5 ML INTRAMUSCULAR SYRINGE *Reorder from [employer] for eRx and Interaction Alerts* Active Nystatin 929238 UNIT/GM Powder External Active Nitroglycerin 0.4 MG Tablet Sublingual Sublingual Active ULTRA-FINE SHORT PEN NEEDLE 31 gauge x 5/16 NEEDLE, DISPOSABLE MISCELLANEOUS *Reorder from [employer] for eRx and Interaction Alerts* Active Cephalexin 500 MG Capsule Oral Active Atorvastatin Calcium 80 MG Tablet Oral Active Levothyroxine Sodium 75 MCG Tablet Oral Active NOVOLOG FLEXPEN U-100 INSULIN ASPART 100 UNIT/ML (3 ML) SUBCUTANEOUS *Reorder from [employer] for eRx and Interaction Alerts* Active Sodium Bicarbonate 650 MG Tablet Oral Active Lantus 100 UNIT/ML Solution Subcutaneous Active VITAMIN D2 1,250 MCG (50,000 UNIT) CAPSULE *Reorder from [employer] for eRx and Interaction Alerts* Active GaviLyte-G 236-22.74-6.74 -5.86 gram Solution Reconstituted Oral *Pick strength-form from [employer] for eRX* Active traZODone HCl 50 MG Tablet Oral Active DULoxetine HCl 30 MG Capsule Delayed Release Particles Oral Active Furosemide 80 MG Tablet Oral Active Fluconazole 100 MG Tablet Oral Active FLUTICASONE PROPIONATE 50 MCG/ACTUATION NASAL SPRAY,SUSPENSION *Reorder from [employer] for eRx and Interaction Alerts* Active Pantoprazole Sodium 40 MG Tablet Delayed Release Oral Active Amoxicillin-Pot Clavulanate 500-125 MG Tablet Oral Active Toujeo SoloStar 300 UNIT/ML Solution Pen-injector Subcutaneous Active Clopidogrel Bisulfate 75 MG Tablet Oral Active Anoro Ellipta 62.5-25 MCG/INH Aerosol Powder Breath Activated Inhalation *Pick strength-form from [employer] for eRX* Active Bystolic 5 MG Tablet Oral Active Social History Social History Additional Details Category Social Info Options Details Migrated Social History Migrated Social History Tobacco Years: Never smoker 06/26/2020 Encounters Encounter Location Date Provider Diagnosis [facility], [facility] [address] [place] [address] 03/26/2025 Provider Migration Plan Of Treatment No Information Progress Notes * KAISER JUDYMARIANELADOB:[birth year] (84 yo F)Acc No.[id number]:03/26/2025 Patient: LYSSA POLANCO :1940 A ge:84 Y S ex:Female Address:[address] [place] [address] Subjective: * Chief Complaints: * E MR-Steven * Social History: M igrated Social History: M igrated Social History: Tobacco Years: Never smoker 06/26/2020. * Medications: T akingBystolic 5 MG Tablet Oral Clopidogrel Bisulfate 75 MG Tablet Oral Pantoprazole Sodium 40 MG Tablet Delayed Release Oral FLUTICASONE PROPIONATE 50 MCG/ACTUATION NASAL SPRAY,SUSPENSION , Notes to Pharmacist: *Reorder from [employer] for eRx and Interaction Alerts*Cephalexin 500 MG Capsule Oral Levothyroxine Sodium 75 MCG Tablet Oral ULTRA-FINE SHORT PEN NEEDLE 31 gauge x 5/16 NEEDLE, DISPOSABLE MISCELLANEOUS , Notes to Pharmacist: *Reorder from [employer] for eRx and Interaction Alerts*Ferrous Sulfate 325 (65 Fe) MG Tablet Oral Atorvastatin Calcium 80 MG Tablet Oral Nitroglycerin 0.4 MG Tablet Sublingual Sublingual Nystatin 687345 UNIT/GM Powder External Ventolin HFA 108 (90 Base) MCG/ACT Aerosol Solution Inhalation Anoro Ellipta 62.5-25 MCG/INH Aerosol Powder Breath Activated Inhalation , Notes to Pharmacist: *Pick strength-form from [employer] for eRX*Lantus 100 UNIT/ML Solution Subcutaneous Sodium Bicarbonate 650 MG Tablet Oral traZODone HCl 50 MG Tablet Oral GaviLyte-G 236-22.74-6.74 -5.86 gram Solution Reconstituted Oral , Notes to Pharmacist: *Pick strength-form from [facility] for eRX*NOVOLOG FLEXPEN U-100 INSULIN ASPART 100 UNIT/ML (3 ML) SUBCUTANEOUS , Notes to Pharmacist: *Reorder from [facility] for eRx and Interaction Alerts*DULoxetine HCl 30 MG Capsule Delayed Release Particles Oral Fluconazole 100 MG Tablet Oral Furosemide 80 MG Tablet Oral VITAMIN D2 1,250 MCG (50,000 UNIT) CAPSULE , Notes to Pharmacist: *Reorder from [facility] for eRx and Interaction Alerts*Amoxicillin-Pot Clavulanate 500-125 MG Tablet Oral Toujeo SoloStar 300 UNIT/ML Solution Pen-injector Subcutaneous FLUZONE HIGH-DOSE 2019-20 (PF) 180 MCG/0.5 ML INTRAMUSCULAR SYRINGE , Notes to Pharmacist: *Reorder from [facility] for eRx and Interaction Alerts*Taking Bystolic 5 MG Tablet Oral Taking Clopidogrel Bisulfate 75 MG Tablet Oral Taking Pantoprazole Sodium 40 MG Tablet Delayed Release Oral Taking FLUTICASONE PROPIONATE 50 MCG/ACTUATION NASAL SPRAY,SUSPENSION , Notes to Pharmacist: *Reorder from [facility] for eRx and Interaction Alerts*Taking Cephalexin 500 MG Capsule Oral Taking Levothyroxine Sodium 75 MCG Tablet Oral Taking ULTRA- FINE SHORT PEN NEEDLE 31 gauge x 5/16 NEEDLE, DISPOSABLE MISCELLANEOUS , Notes to Pharmacist: *Reorder from [facility] for eRx and Interaction Alerts*Taking Ferrous Sulfate 325 (65 Fe) MG Tablet Oral Taking Atorvastatin Calcium 80 MG Tablet Oral Taking Nitroglycerin 0.4 MG Tablet Sublingual Sublingual Taking Nystatin 362544 UNIT/GM Powder External Taking Ventolin HFA 108 (90 Base) MCG/ACT Aerosol Solution Inhalation Taking Anoro Ellipta 62.5-25 MCG/INH Aerosol Powder Breath Activated Inhalation , Notes to Pharmacist: *Pick strength-form from [facility] for eRX*Taking Lantus 100 UNIT/ML Solution Subcutaneous Taking Sodium Bicarbonate 650 MG Tablet Oral Taking traZODone HCl 50 MG Tablet Oral Taking GaviLyte-G 236-22.74-6.74 -5.86 gram Solution Reconstituted Oral , Notes to Pharmacist: *Pick strength-form from [facility] for eRX*Taking NOVOLOG FLEXPEN U-100 INSULIN ASPART 100 UNIT/ML (3 ML) SUBCUTANEOUS , Notes to Pharmacist: *Reorder from [facility] for eRx and Interaction Alerts*Taking DULoxetine HCl 30 MG Capsule Delayed Release Particles Oral Taking Fluconazole 100 MG Tablet Oral Taking Furosemide 80 MG Tablet Oral Taking VITAMIN D2 1,250 MCG (50,000 UNIT) CAPSULE , Notes to Pharmacist: *Reorder from [facility] for eRx and Interaction Alerts*Taking Amoxicillin-Pot Clavulanate 500-125 MG Tablet Oral Taking Toujeo SoloStar 300 UNIT/ML Solution Pen-injector Subcutaneous Taking FLUZONE HIGH-DOSE 2018- (PF) 180 MCG/0.5 ML INTRAMUSCULAR SYRINGE , Notes to Pharmacist: *Reorder from [facility] for eRx and Interaction Alerts* * * Date:
--- OUTSIDE RECORDS SUMMARY | 2025-05-27 14:02 | XMS_ITS | Encounter Summary ---
Author Organization [employer] ([place], [place], [place], [place], [place]) Address [address] [place] [address] Care Team Providers Care Embroidery Operator Name Role Phone Anand Noble MD Primary Care Provider Reason for Visit * Auth/Cert (Routine) Specialty Diagnoses / Procedures Referred By Cooper nelson Referred To Contact Diagnoses GI bleeding GIB (GastroIntestinal Bleed) [address] Tele[address] [place] [address] Phone: tel: fax: [address] Medical Tele[address] [place] [address] Phone: tel: fax: Referral ID Status Reason Start Date Expiration Date Visits Re quested Visits Authorized [id number] 1 1 Encounter Details Date Type Department Care Team (Late st Contact Info) Description 05/27/2025 3:02 PM EDT - 05/29/2025 4:43 PM EDT Hospital Encounter [address] Medical Telemetry [address] [place] [address] Alan Vargas DO [address] [place] [address] Vane Corley MD [address] [place] [address] Discharge Disposition: Residential Facility Social History Tobacco Use Types Packs/Day Years Used Date Smoking Tobacco: Never Smokeless Tobacco: Never Alcohol Use Standard Drinks/Week Comments Never 0 (1 standard drink = 0.6 oz pur e alcohol) PRAPARE - Transportation Answer Date Re corded In the past 12 months, has l ack of transportation kept you from medical appointments or from getting medications? No 07/25/2023 Lack of Transportation (Non-Medical) Not on file 07/25/2023 Employment Answer Date Recorded Help finding and keeping a job Not on file 0 09/01/2023 Family and Community Support Answer Taj e Recorded Help with Day to Day Activities Not on file 09/01/2023 Feeling Lonely or Isolated Not on file 09/01 Educational Attainment Answer Date Juan rded Speak language other than Barbadian at home Not on file 09/01/2023 Want help with school or training Not on file 09/01/2023 Substance Use Answer Date Recorded Used prescription meds for non-medical reasons N ot on file 09/01/2023 Used illegal drugs past 12 months Not on file 09/01/2023 Comments Unknown Sex and Gender Information Value Date Recorded Sex Assigned at Not on file Legal Sex Female 6:34 PM CDT Gender Identity Not on file Sexual Orientation Not on file documented as of this encounter Last Filed Vital Signs Vital Sign Reading Time Taken Comments Blood Pressure 148/62 05/29/2025 11:55 AM EDT Pulse 80 05/29/2025 1:25 PM EDT Temperature 37 C (98.6 F) 05/29/2025 11:55 AM EDT Respiratory Rate 16 05/29/2025 11:5 5 AM EDT Oxygen Saturation 93% 05/29/2025 1:25 PM EDT Inhaled Oxygen Concentration - - Weight 70.7 kg (155 lb 14.4 oz) 05/27/2025 3:45 PM EDT Height 162.5 cm (5' 3.98 ) 05/27/2025 3:45 PM ED T Body Mass Index 26.78 05/27/2025 3:45 PM EDT documented in this encounter Discharge Summaries * Vane Corley MD - 05/29/2025 10:40 AM EDT Patient Name: Lyssa Higgins : 1940 Date of Admission: 05/27/2025 Date of Discharge: 05/29/2025 Primary Care Physician: Anand Noble MD, MD Consultations: Treatment Team: Consulting Physician: Ebony Gipson MD Consulting Physician: Pa Santos MD Discharge Diagnoses: Anemia likely due to GI bleeding Reason for Admission: Lyssa Higgins is a 84 y.o. female with PMH of GI bleeding, H/O aortic stenosis, COPD, CKD, HTN,DM. Anemia with baseline Hbg 7-8 on iron supplement Presented to Er worsening weakness and fatigue.She also Pale. Her labs Hbg 5.1, patient did not receive blood transfusion creatinine 3.6, BUN 105,Potassium 6.5, she was giving IV insulin.Ca Gluconate, IV protonex. Hospital Course: She was Admitted for further evaluation and treatment, received blood transfusion, was evaluated bygastroenterology, iron study normal ferritin and iron level, patient with anemia likely due to chronic disease, gastroenterology recommended an endoscopy at this time will be high risk due to her other comorbidities. No urgency to pursue endoscopy at this time. Recommendation to follow-up as an outpatient to consider endoscopy in near future when she is more stable. Her hemoglobin today discharge8, hematocrit 25.6 stable. Patient also with hyperkalemia chronic kidney disease, she received IV dextrose and insulin, started on Lokelma, she was evaluated by nephrology. Due to her low GFR her jard iance was stopped. Studies Performed: Procedures Performed: Discharge Medications: Your medication list CHANGE how you take these medications Instructions Comments Quantity Refills pantoprazole 40 MG tablet Commonly known as: PROTONIX What changed: when to take this Take 1 tablet (40 mg total) by mouth Daily (0600) for 30 days. 30 tablet 0 CONTINUE taking these medications Instructions Comments Quantity Refills acetaminophen 325 MG tablet Commonly known as: TYLENOL Take 2 tablets (650 mg total) by mouth daily. 0 albuterol 90 mcg/actuation inhaler Inhale 2 puffs by mouth every 4 (four) hours as needed for wheezing. 0 aspirin 81 MG chewable tablet Take 1 tablet (81 mg total) by mouth daily. 0 atorvastatin 80 MG tablet Commonly known as: LIPITOR Take 1 tablet (80 mg total) by mouth nightly. 0 budesonide-formoteroL 160-4.5 mcg/actuation inhaler Commonly known as: SYMBICORT Inhale 2 puffs by mouth 2 (two) times daily. 0 bumetanide 2 MG tablet Commonly known as: BUMEX Take 1 tablet (2 mg total) by mouth daily. 0 carvediloL 12.5 MG tablet Commonly known as: COREG Take 1 tablet (12.5 mg total) by mouth 2 (two) times daily with breakfast and dinner. 0 doxazosin 2 MG tablet Commonly known as: CARDURA Take 1 tablet (2 mg total) by mouth nightly. 0 DULoxetine 30 MG capsule Commonly known as: CYMBALTA Take 1 capsule (30 mg total) by mouth daily. 0 ferrous sulfate 325 (65 FE) MG EC tablet Take 1 tablet (325 mg total) by mouth daily with breakfast. 0 fluticasone propionate 50 mcg/actuation nasal spray Commonly known as: FLONASE Administer 1 spray into each nostril daily. 0 guaiFENesin 600 mg 12 hr tablet Commonly known as: mucINEX Take 1 tablet (600 mg total) by mouth 2 (two) times daily. 0 hydrALAZINE 50 MG tablet Commonly known as: APRESOLINE Take 1 tablet (50 mg total) by mouth 3 (three) times daily. 0 insulin aspart U-100 100 unit/mL (3 mL) Inpn Commonly known as: NovoLOG Inject subcutaneously 3 (three) times daily before meals Sliding Scale. Use as directed. 0 ipratropium-albuteroL 0.5 mg-3 mg(2.5 mg base)/3 mL nebulizer solution Commonly known as: DUO-NEB Inhale 3 mLs by nebulization every 4 (four) hours as needed for wheezing. 0 isosorbide mononitrate 60 MG 24 hr tablet Commonly known as: IMDUR Take 1 tablet (60 mg total) by mouth every morning before breakfast. 0 levothyroxine 75 MCG tablet Commonly known as: SYNTHROID Take 1 tablet (75 mcg total) by mouth Every morning on an empty stomach. 0 Lokelma 5 gram Pwpk packet Generic drug: sodium zirconium cyclosilicate Take 1 packet (5 g total) by mouth daily. 0 loratadine 10 mg tablet Commonly known as: CLARITIN Take 1 tablet (10 mg total) by mouth daily. 0 melatonin 5 mg tablet Take 1 tablet (5 mg total) by mouth nightly. 0 ondansetron 4 MG disintegrating tablet Commonly known as: ZOFRAN-ODT Take 1 tablet (4 mg total) by mouth every 6 (six) hours as needed for nausea or vomiting. 0 oxyCODONE 5 MG immediate release tablet Commonly known as: ROXICODONE Take 1 tablet (5 mg total) by mouth every 8 (eight) hours as needed for pain for up to 3 days. Max Daily Amount: 15 mg 9 tablet 0 polyethylene glycol 17 gram/dose powder Commonly known as: MIRALAX Take 17 g by mouth daily as needed (Constipation). 0 sennosides-docusate sodium 8.6-50 mg per tablet Take 1 tablet by mouth 2 (two) times daily as needed for constipation. 0 Systane Balance 0.6 % Drop Generic drug: propylene glycoL Administer 1 drop into both eyes 4 (four) times daily. 0 traZODone 50 MG tablet Commonly known as: DESYREL Take 1 tablet (50 mg total) by mouth nightly. 0 STOP taking these medications Jardiance 10 mg tablet Generic drug: empagliflozin Where to Get Your Medications These medications were sent to [facility] at [address] [facility] [address] [id number] oxyCODONE 5 MG immediate release tablet pantoprazole 40 MG tablet Physical Exam BP (!) 148/62 (BP Location: Right arm, Patient Position: Lying) Pulse 80 Temp 98.6 ??F (37 ??C)(Oral) Resp 16 Ht 1.625 m (5' 3.98 ) Wt 70.7 kg (155 lb 14.4 oz) SpO2 93% BMI 26.78 kg/m?? Discharge Instructions Discharge Diet: Discharge Activity: Discharge Follow UP: Contact information for follow-up Anand Noble MD, MD Specialty: Family Medicine, Sports Medicine Relationship: PCP - [place] [address] [place] [address] Next Steps: Follow up in 1 week(s) Ebony Gipson MD Specialty: Gastroenterology [address] [facility] [address] Next Steps: Follow up in 1 month(s) [facility] Specialty: Residential Facility [address] [facility] [address] [place] [id number] Next Steps: Follow up Time Spent: 33 min Electronically signed by Vane Corley MD, 05/29/25, 3:35 PM EDT documented in this encounter Discharge Instructions * Attachments The following attachments cannot be sent through Care Everywhere. * Blood Transfusion Adult (Barbadian) documented in this encounter Medications at Time of Discharge acetaminophen (TYLENOL) 325 MG tablet Take 2 tablets (650 mg total) by mouth daily. albuterol 90 mcg/actuation inhaler Inhale 2 puffs by mouth every 4 (four) hours as needed for wheezing. aspirin 81 MG chewable tablet Take 1 tablet (81 mg total) by mouth daily. atorvastatin (LIPITOR) 80 MG tablet Take 1 tablet (80 mg total) by mouth nightly. budesonide-formoter oL (SYMBICORT) 160-4.5 mcg/actuation inhaler Inhale 2 puffs by mouth 2 (two) times daily. bumetanide (BUMEX) 2 MG tablet Take 1 tablet (2 mg total) by mouth daily. carvediloL (COREG) 12.5 MG tablet Take 1 tablet (12.5 mg total) by mouth 2 (two) times daily with breakfast and dinner. doxazosin (CARDURA) 2 MG tablet Take 1 tablet (2 mg total) by mouth nightly. DULoxetine (CYMBALTA) 30 MG capsule Take 1 capsule (30 mg total) by mouth daily. ferrous sulfate 325 (65 FE) MG EC tablet Take 1 tablet (325 mg total) by mouth daily with breakfast. fluticasone propionate (FLONASE) 50 mcg/actuation nasal spray Administer 1 spray into each nostril daily. guaiFENesin (mucINEX) 600 mg 12 hr tablet Take 1 tablet (600 mg total) by mouth 2 (two) times daily. hydrALAZINE (APRESOLINE) 50 MG tablet Take 1 tablet (50 mg total) by mouth 3 (three) times daily. insulin aspart U-100 (NovoLOG) 100 unit/mL (3 mL) InPn Inject subcutaneously 3 (three) times daily before meals Sliding Scale. Use as directed. ipratropium-albuter oL (DUO-NEB) 0.5 mg-3 mg(2.5 mg base)/3 mL nebulizer solution Inhale 3 mLs by nebulization every 4 (four) hours as needed for wheezing. isosorbide mononitrate (IMDUR) 60 MG 24 hr tablet Take 1 tablet (60 mg total) by mouth every morning before breakfast. levothyroxine (SYNTHROID, LEVOTHROID) 75 MCG tablet Take 1 tablet (75 mcg total) by mouth Every morning on an empty stomach. loratadine (CLARITIN) 10 mg tablet Take 1 tablet (10 mg total) by mouth daily. melatonin 5 mg tablet Take 1 tablet (5 mg total) by mouth nightly. ondansetron (ZOFRAN-ODT) 4 MG disintegrating tablet Take 1 tablet (4 mg total) by mouth every 6 (six) hours as needed for nausea or vomiting. polyethylene glycol (MIRALAX) 17 gram/dose powder Take 17 g by mouth daily as needed (Constipation). propylene glycoL (Systane Balance) 0.6 % drop Administer 1 drop into both eyes 4 (four) times daily. sennosides-docusate sodium 8.6-50 mg per tablet Take 1 tablet by mouth 2 (two) times daily as needed for constipation. sodium zirconium cyclosilicate (Lokelma) 5 gram pwpk packet Take 1 packet (5 g total) by mouth daily. traZODone (DESYREL) 50 MG tablet Take 1 tablet (50 mg total) by mouth nightly. oxyCODONE (ROXICODONE) 5 MG immediate release tablet Take 1 tablet (5 mg total) by mouth every 8 (eight) hours as needed for pain for up to 3 days. Max Daily Amount: 15 mg 9 tablet 5 06/01/20 pantoprazole (PROTONIX) 40 MG tablet Take 1 tablet (40 mg total) by mouth Daily (0600) for 30 days. 30 tablet 5 06/28/20 25 documented as of this encounter Progress Notes * Reece Thompson RN - 05/29/2025 3:36 PM EDT Report called to Diann at [facility]. * Ravi Trent MD - 05/29/2025 1:30 PM EDT Subjective: Seen and examined at bedside for the first time during this admission. Patient reports feeling better. S/p 2 units of blood. Stable overnight. No new events. Objective: Blood pressure (!) 120/30, pulse 88, temperature 98.6 ??F (37 ??C), temperature source Oral, resp. rate 17, height 1.625 m (5' 3.98 ), weight 70.7 kg (155 lb 14.4 oz), SpO2 94%. Intake/Output Summary (Last 24 hours) at 05/29/2025 1330 Last data filed at 05/29/2025 0840 Gross per 24 hour Intake 220 ml Output 450 ml Net -230 ml 05/28 0700 - 05/29 0659 In: 129.2 [P.O.:100; I.V.:29.2] Out: 450 [Urine:450] Physical Exam: General Appearance: NAD Neuro: awake alert, no focal deficit noted Psych: Normal mood and affect, cooperative with exam Eyes: Pupils Equal, no conjunctivitis ENT: OMMM CV: RRR, No edema Lungs: respirations regular and unlabored, symmetrical chest expansion Abdomen: not distended, NTTP : No marcano, no palp bladder Skin: No rash, Warm and dry Labs: Recent Labs Lab(s) Units 05/29/25 0250 05/28/25 0626 10/12/164 05/27/25 1547 WBC K/??L 8.1 7.8 -- 10.4* HGB GM/DL 8.0* 7.9* 6.4* 5.3* PLT K/CU MM 215 193 -- 219 Recent Labs Lab(s) Units 05/29/25 0250 05/28/25 0626 05/27/25 1547 NA meq/L 143 142 141 K meq/L 4.6 5.3* 5.9* CL meq/L 113* 113* 112 CO2 meq/L 20* 18* 17* BUN mg/dL 83.4* 94.0* 103.5* CREATININE mg/dL 3.13* 3.48* 3.44* CALCIUM mg/dL 8.7 9.2 9.7 MG mg/dL -- 1.8 -- A/P: 1- FIDEL on CKD stage IV - Baseline Scr 2.8-2.9 range. Progression of disease vs FIDEL- 2- Hx of chronic pericardial effusion 3- Anemia 4- HTN 5- DM 6- Hyperkalemia 7- Metabolic acidosis 8- Plan: - Renal function slightly better today creatinine 3.13 mg/dL. Renal function close to baseline. - Monitor I/O - Avoid nephrotoxic agents. - Renal diet - Adjust meds per renal function - No emergent need of MEDIA PLANNER - Monitor H/H and transfuse for Hgb less than 7.0 - Low sodium diet and fluid restriction 1.5 lit/day Dispo: Patient to [facility] outpatient after discharge in 1 month. Ravi Trent MD 05/29/25 1:30 PM * Vane Corley MD - 05/28/2025 11:22 AM EDT Subjective Seen and examined. Today. Was evaluated by GI.Hgb up to 7.9 after blood transfusion. Review of Systems No abd pain Weakness No fever or chills Objective Last Recorded Vitals Blood pressure 135/43, pulse 72, temperature 97.7 ??F (36.5 ??C), temperature source Oral, resp. rate 16, height 1.625 m (5' 3.98 ), weight 70.7 kg (155 lb 14.4 oz), SpO2 94%. Physical Exam Head atraumatic, normocephalic Cardiovascular S1, S2, No MGR Labs: Results for orders placed or performed during the hospital encounter of 05/27/25 (from the past 24 hours) Prepare RBC: 1 Units Status: None Collection Time: 05/27/25 3:23 PM Result Value Ref Range Issue Date/Time [id number] Product Identification Red Blood Cells Product Code [id number] Status Information TRANSFUSED Unit Number [id number] Blood Type 5100 Cross Match Results Compatible CBC with automated diff Status: Abnormal Collection Time: 05/27/25 3:47 PM Result Value Ref Range WBC 10.4 (H) 4.0 - 10.0 K/??L RBC 1.65 (L) 3.93 - 5.22 M/??L Hemoglobin 5.3 (LL) 11.2 - 15.7 GM/DL Hematocrit 16.9 (L) 34.1 - 44.9 % MCV 102 (H) 79 - 95 fL MCH 32.1 25.6 - 32.2 pg MCHC 31.4 (L) 32.2 - 35.5 GM/DL RDW 17.2 (H) 11.7 - 14.4 % Platelets 219 140 - 375 K/CU MM MPV 10.6 9.4 - 12.3 fL % Neutros 72 (H) 34 - 71 % % Lymphs 15 (L) 19 - 52 % % Monos 12 5 - 13 % % Eos 0 (L) 1 - 6 % % Baso 0 0 - 1 % NRBC Absolute <0.01 0 - 0.012 K/ul # Neutros 7.49 (H) 1.56 - 6.13 K/??L # Lymphs 1.55 1.18 - 3.74 K/??L # Monos 1.19 (H) 0.24 - 0.86 K/??L # Eos 0.04 0.04 - 0.36 K/??L # Baso <0.03 0.01 - 0.08 K/ L Immature Granulocytes-Relative 0.80 (H) 0.01 - 0.43 % # IG 0.08 (H) 0.00 - 0.03 K/uL Basic Metabolic Panel Status: Abnormal Collection Time: 05/27/25 3:47 PM Result Value Ref Range Sodium 141 136 - 145 meq/L Potassium 5.9 (H) 3.4 - 5.1 meq/L CO2 17 (L) 22 - 29 meq/L Chloride 112 98 - 112 meq/L Glucose 123 (H) 82 - 115 mg/dL BUN 103.5 (H) 9.8 - 20.1 mg/dL Creatinine 3.44 (H) 0.57 - 1.11 mg/dL BUN/Creatinine 30 (H) 8 - 20 Calcium 9.7 8.4 - 10.2 mg/dL Anion Gap 18 (H) 4 - 12 eGFR (mL/min/1.73m2) 13 (L) >=60 mL/min/1.73m2 Osmolality Calc 315.1 mOsm/kg Iron and TIBC Status: Abnormal Collection Time: 05/27/25 3:47 PM Result Value Ref Range Iron 74 50 - 170 ug/dL TIBC 203 (L) 250 - 435 ug/dL % Saturation 36 % UIBC 129 Ferritin Status: Normal Collection Time: 05/27/25 3:47 PM Result Value Ref Range Ferritin 115.24 4.63 - 204.00 ng/mL Type and Screen Status: None Collection Time: 05/27/25 3:48 PM Result Value Ref Range ABO/Rh O Positive Antibody Screen Negative HISTCHK HIST CHECK PERFORMED Glucose, Nova Meter Status: None Collection Time: 05/27/25 5:01 PM Result Value Ref Range POC-GLUCOSE 110 70 - 110 mg/dL Housekeeping Cleaner [id number] Glucose, Nova Meter Status: Abnormal Collection Time: 05/27/25 5:42 PM Result Value Ref Range POC-GLUCOSE 161 (H) 70 - 110 mg/dL Housekeeping Cleaner [id number] Hemoglobin and hematocrit Status: Abnormal Collection Time: 05/27/25 10:34 PM Result Value Ref Range Hemoglobin 6.4 (LL) 11.2 - 15.7 GM/DL Hematocrit 19.7 (L) 34.1 - 44.9 % Prepare RBC: 1 Units Status: None Collection Time: 05/27/25 10:54 PM Result Value Ref Range Issue Date/Time [id number] Product Identification Red Blood Cells Product Code [id number] Status Information TRANSFUSED Unit Number [id number] Blood Type 5100 Cross Match Results Compatible Glucose, Nova Meter Status: None Collection Time: 05/28/25 12:09 AM Result Value Ref Range POC-GLUCOSE 92 70 - 110 mg/dL Housekeeping Cleaner [id number] Glucose, Nova Meter Status: None Collection Time: 05/28/25 6:03 AM Result Value Ref Range POC-GLUCOSE 105 70 - 110 mg/dL Housekeeping Cleaner [id number] CBC - Hemogram (SJ-BKR) Status: Abnormal Collection Time: 05/28/25 6:26 AM Result Value Ref Range WBC 7.8 4.0 - 10.0 K/??L RBC 2.59 (L) 3.93 - 5.22 M/??L Hemoglobin 7.9 (L) 11.2 - 15.7 GM/DL Hematocrit 24.7 (L) 34.1 - 44.9 % MCV 95 79 - 95 fL MCH 30.5 25.6 - 32.2 pg MCHC 32.0 (L) 32.2 - 35.5 GM/DL RDW 18.3 (H) 11.7 - 14.4 % Platelets 193 140 - 375 K/CU MM MPV 10.7 9.4 - 12.3 fL Basic Metabolic Panel Status: Abnormal Collection Time: 05/28/25 6:26 AM Result Value Ref Range Sodium 142 136 - 145 meq/L Potassium 5.3 (H) 3.4 - 5.1 meq/L CO2 18 (L) 22 - 29 meq/L Chloride 113 (H) 98 - 112 meq/L Glucose 106 82 - 115 mg/dL BUN 94.0 (H) 9.8 - 20.1 mg/dL Creatinine 3.48 (H) 0.57 - 1.11 mg/dL BUN/Creatinine 27 (H) 8 - 20 Calcium 9.2 8.4 - 10.2 mg/dL Anion Gap 16 (H) 4 - 12 eGFR (mL/min/1.73m2) 13 (L) >=60 mL/min/1.73m2 Osmolality Calc 312.6 mOsm/kg Glucose, Nova Meter Status: Abnormal Collection Time: 05/28/25 10:43 AM Result Value Ref Range POC-GLUCOSE 191 (H) 70 - 110 mg/dL Housekeeping Cleaner [id number] IR REQUEST - MISCELLANEOUS Narrative: TUNNELED CATHETER REMOVAL PHYSICIAN COMPLIANCE EXAMINER: Chris Tipton PA-C. RADIOLOGIST: Hussein Mast M.D. HISTORY: Tunneled dialysis catheter no longer needed, requests removal. PROCEDURE: After informed consent and a time-out were obtained, the patient was prepped and draped in the usual sterile fashion over the right anterior chest wall. 1% lidocaine was utilized for local anesthesia. The sutures were removed. Utilizing blunt dissection, the cuff of the catheter was dissected and removed. The catheter was withdrawn without complication. Hemostasis was obtained with manual compression over the venotomy site and over the chest wall access site. Impression: Status post implanted venous catheter removal, without complication. Images reviewed, interpreted, and dictated by Dr. Jamie Mast. Transcribed by Chris Tipton PA-C. Assessment and plan #Symptomatic Anemia Initial Hemoglobin 5.1 S/P blood transfusion iron study noted Patient on iron supplement at home Patient have history of GI bleeding IV pantoprazole Evaluated by Gastroenterology On CLD No plan for emergent procedure at this time # Hyperkalemia Initial Potassium 6.5, she was giving IV insulin.Ca Gluconate Potassium 5.3 this morning , will order Firm58 monitor #chronic Kidney disease Gentle IV hydration Monitor kidney function Consult nephrology Cr 3.48, BUN 94 #H/O aortic stenosis #COPD Stable # HTN Can use hydralazine PRN Monitor BP #DM Sliding scale Insulin Monitor blood sugar BG 106 # Hypothyroidism Continue with levothyroxine DVT prophylaxis CCD due to anemia GI prophylaxis pantoprazole CODE STATUS patient is full code Discharge Planning: Sever anemia, GI consulted. Will get her out of bed to chair. May discharge tomorrow * Tab Doyle, PT - 05/28/2025 10:33 AM EDT Images from the original note were not included. Inpatient Physical Therapy Initial Evaluation Patient Name: Lyssa Higgins Date of : 1940 Date of Evaluation: 05/28/25 In Time 10:05 Out Time 10:32 Session Duration 27 minutes Time spent for nursing collaboration, chart and systems review, and clinical reasoning. 10 minutes Total Time 37 minutes Pt is a 84 y.o. female admitted on 05/27/2025 with GI bleeding [K92.2]. No past medical history on file. No past surgical history on file. General Visit type: Initial Evaluation Approved by: Nursing Patient Disposition Upon Entry: Supine in bed, Call Light/Pull Cord in reach, All needs met and within reach, HOB >30 degrees, pure wick in place, . Patient Verified By: Name and Date of Co-treated by: OT Precautions No weight bearing restrictions with bilateral LE. Precautions: None Isolation Precautions: Standard Subjective Subjective: Patient agreeable to physical therapy evaluation and treatment. Patient goal: Patient wants to feel better and return to her intermediate. Pain No - Patient not reporting pain at this time Cognition Patient is alert and oriented x 4. Home Living Patient is a resident of the intermediate, receives assist with her functional activities and ambulates utilizing walker. Objective Vitals BP: 181/48, HR:71 and 02 sat : 98% Basic Strength Assessment Bilateral Lower extremity strength is grossly 3/5 and is WFL. Range of Motion Assessment Bilateral LE AROM is WFL, patient not able to full extend her bilateral knees after her knee surgery in the past and its chronic in nature. Sensation Sensation is intact and equal bilaterally. Coordination Not tested. Functional Mobility Bed Mobility Patient can roll and get supine to sit and sit to supine with CGA x 1 for safety. Transfers Patient can transfer CGA x1 for safety. Gait Patient can ambulate with walker with CGA x 1 for safety. Patient ambulated approx 40 feet and showed good endurance. Stair Management Not applicable Wheelchair Mobility Not applicable. Outcome Measures AM-PAC Basic Mobility Inpatient Short Form How much difficulty does the patient currently have: Turning over in bed (including adjusting bedclothes, sheets, and blankets)? (2) A lot (can do the activity without assistive devices or help from another person, but requires A LOT more effort and/ortime) Sitting down on and standing up from a chair with arms (e.g., wheelchair, bedside commode, etc.)? (2) A lot (can do the activity without assistive devices or help from another person, but requires A LOT more effort and/or time) Moving from lying on back to sitting on side of bed? (2) A lot (can do the activity without assistive devices or help from another person, but requires A LOT more effort and/or time) How much help from another person does the patient currently need: Moving to and from a bed to a chair (including a wheelchair)? (3) A little (Minimal/Contact guard/Supervision/Setup) Need to walk in hospital room? (3) A little (Minimal/Contact guard/Supervision/Setup) Climbing 3-5 steps with a railing? (3) A little (Minimal/Contact guard/Supervision/Setup) Score Raw score=15 t-Scale score=39.45 Standard error=2.93 CMS 0-100%=57.70% MDC=4.72 A raw score of >= 16 is significantly associated with increased odds of discharge to home in addition to consideration made for the patient's cognition and social determinants of health. A Balance Static/dynamic sitting and static/dynamic standing balance grades Balance Grade Sitting Static Normal - patient able to maintain steady balance without handhold support Sitting Dynamic Normal - patient accepts maximal challenge and can shift weight easily within full range in all directions Standing Static Good - patient able to maintain balance without handhold support, limited postural sway Standing Dynamic Good - patient accepts moderate challenge; able to maintain balance while picking object off floor Activity Tolerance Patient tolerated activity/intervention well with no complaints or adverse events. Treatment Patient ambulated with walker 40 feet with CGA x 1. Assessment Patient is currently at there prior level of functional abilities and no acute skilled PT is indicated at this time. Plan Treatment Plan: Not applicable PT Frequency/Duration: Not applicable. Recommendations Discharge recommendations: Patient return to her previous place of living. DME recommendations: No DME needs. Goal: Not applicable. Education Patient educated on safety and following, they were able to demonstrate understanding. No further questions or concerns stated. Interdisciplinary Communication Following treatment, therapist communicated with nursing by completing communication whiteboard in room. Patient Disposition Upon Leaving Supine in bed, Call Light/Pull Cord in reach, requested Nursing to replace her pure wick, and left as found. If this patient discharges prior to next therapy session, this note serves as the patient's discharge summary. Electronically signed by Tab Doyle, PT - 05/28/25 - 1:42 PM EDT PT Evaluation Completed * NAZANIN Menezes - 05/28/2025 10:32 AM EDT Images from the original note were not included. [address] TELEMETRY UNIT Inpatient Occupational Therapy Initial Evaluation Patient Name: Lyssa Higgins Date of : 1940 Date of Evaluation: 05/28/25 Start Time: 1001 Stop Time: 1032 Session Duration: 31 minutes Total time: 41 minutes spent, including 10 minutes for nursing collaboration, thorough chart and systems review, and clinical reasoning. This patient is a 84 y.o. female admitted on 05/27/2025 with GI bleeding [K92.2]. No past medical history on file. No past surgical history on file. General Visit type: Initial Evaluation Approved by: Nurse Caceres Patient disposition upon entry: Patient verified by name, Patient verified by medical record number, Supine in bed Co-treated by: PT Precautions Weightbearing status: No restrictions Precautions: Fall risk Isolation precautions: Standard Subjective Subjective: Pt agreeable Patient's stated goal: Return to previous living situation Pain No-patient has no complaints of pain Cognition Cognition: Overall cognitive status: Patient is awake and alert, attending to directions appropriately, demonstrating good problem solving skills, and aware of any deficits or impairments, if present. Orientation level: Oriented x4, Oriented to place, Oriented to time, Oriented to situation, Oriented to person Home Living Lives with: Alone, Caregivers at nursing facility Receives help from: Facility staff, receives PT a facility Type of home: SNF Home layout: One level, No stairs to enter Bathroom layout: Walk in shower Home equipment available: hospital bed, shower chair, walker, rolling Functional Mobility PLOF: Patient reports requiring assistance with ambulation and transfers prior to onset. Activities of Daily Living PLOF: Patient reports requiring assistance with dressing, bathing and set up for grooming prior to onset. Does the patient have a recent history of falls?: No Objective Vitals Heart rate: 70 beats per minute Blood pressure: 181/48 mmHg SpO2: 98% room air Range of Motion Assessment Normal: Patient is able to use bilateral upper extremities for reaching/grasping/holding objects inall planes, including above shoulder level Except Right shoulder OHF 100 degrees (hx of CVA), elbow wrist/hand WFL Strength Assessment Good: Patient is able to use arms to pull, push, and hold moderate to maximal resistance at shoulder, elbow, and wrist. Comment: see above for right shoulder Coordination/Sensation Coordination: The patient's fine motor coordination is intact. The patient has gross motor coordination as deficits noted by limited right shoulder AROM for abovehead tasks; functionally can bring hands to face. Bed Mobility Scooting: Total Assistance, 2 person assist Supine to sit: Minimal assistance, 1 person assist, Head of bed elevated, Use of bedrails Sit to supine: Modified independent Transfers Sit to stand:Minimal assistance, 1 person assist, Gait belt used, Rolling walker used Stand to sit:Contact guard, Gait belt used, Rolling walker used Functional mobility:Contact guard, Gait belt used, Rolling walker used ADLs Feeding:Independent Grooming:Setup Bathing:Moderate Assistance Upper body dressing:Independent Lower body dressing:Maximal Assistance Toileting:Minimal Assistance Outcome Measures [facility] Daily Living Functional Assessment How much help from another person does the patient currently need: Putting on and taking off regular lower body clothing? 2 Bathing, including washing, rinsing, and drying? 2 Toileting, including using toilet, bedpan or urinal? 3 Putting on and taking off regular upper body clothing? 4 Taking care of personal grooming such as brushing teeth? 4 Eating meals? 4 1=Total/Unable (Total assist/Dependent) 2=A lot (Maximal/Moderate assist) 3=A little (Minimal/Contact guard/Supervision/Setup) 4=None (Modified independent/Independent) The patient's [facility] raw score is 19. The patient currently has 42.80% functional impairment. Clinicians are most likely to recommend inpatient/SNF/assisted care for patients with scores between 6-17, home health for scores between 18-22, and routine discharge for scores above 22. Balance Static sitting balance:Normal: Patient able to maintain steady balance without handheld support Dynamic sitting balance:Normal: Patient accepts maximal challenge and shift weight easily within full range in all directions Static standing balance:Fair: Patient able to maintain balance with handheld support, may require occasional minimal assistance Dynamic standing balance:Fair: Patient accepts minimal challenge; able to maintain balance while turning head/trunk Activity Tolerance Patient tolerated activity/intervention well with no complaints or adverse events. Treatment Upon entering room, pt was supine in bed. Pt was able to transfer to seated at EOB with min A and use of bed features (pt has hospital bed at home). Pt was able to stand with min A and use of RW and ambulate with CGA and RW. Pt was was able to return to room and transfer to bed with CGA. Pt needed tot A x2 to scoot to HOB. Ensured all other needs met prior to exiting room. Assessment Assessment Prior to admission pt was resided in a nursing facility and staff assisted her with transfers, mobility and completing ADLs/IADLs. Pt is at baseline for functional mobility and ADL/IADL status. Further occupational therapy services are not needed at this time. The patient's current AMPAC score of 19 would indicate that the patient will likely be appropriate for inpatient rehab/SNF/ exterminator helper care post hospitalization. Plan Recommendations Discharge recommendations: Patient would benefit from 1-2 hours of multidisciplinary therapy per day upon discharge from acute care setting to assist with returning to prior level of functioning., Other: Prior living situation SNF DME recommendations: Patient has no adaptive/DME needs for discharge at this time. Treatment Plan: Defer at this time Education Patient educated on safety, role of occupational therapy, patient's plan of care, ADLs, adaptive equipment, functional mobility and following, they were able to verbalize understanding, return demonstration. Interdisciplinary Communication Following treatment, therapist communicated with nursing regarding patient's performance during therapy session, need for new purewick placement. Patient Disposition Upon Leaving Patient disposition upon leaving: Supine in bed, All needs met and within reach, Call light/pull cord in reach If this patient discharges prior to next therapy session, this note serves as the patient's discharge summary. Electronically signed by NAZANIN Menezes - 05/28/2025 - 1:27 PM EDT OT Evaluation Completed documented in this encounter H&P Notes * Vane Corley MD - 05/27/2025 3:15 PM EDT History of Present Illness History Of Present Illness Lyssa Higgins is a 84 y.o. female with PMH of GI bleeding, H/O aortic stenosis, COPD, CKD, HTN,DM. Anemia with baseline Hbg 7-8 on iron supplement Presented to Er worsening weakness and fatigue.She also Pale. Her labs Hbg 5.1, patient did not receive blood transfusion creatinine 3.6, BUN 105,Potassium 6.5, she was giving IV insulin.Ca Gluconate, IV protonex. Past Medical History She has no past medical history on file. Surgical History She has no past surgical history on file. Social History She reports that she has never smoked. She has never used smokeless tobacco. She reports that she does not drink alcohol and does not use drugs. Family History Her family history is not on file. Allergies Ciprofloxacin, Codeine, Doxycycline, Erythromycin, and Sulfa (Sulfonamide Antibiotics) Medications Current Outpatient Medications Medication Instructions atorvastatin (LIPITOR) 80 mg, oral, Every Night cholecalciferol (vitamin D3) 50,000 Units, oral, Weekly ferrous gluconate (FERGON) 324 mg, oral, Daily with breakfast fluticasone propion-salmeteroL (ADVAIR) 250-50 mcg/dose diskus inhaler 1 puff, inhalation, 2 times daily hydrOXYzine (ATARAX) 10 mg, oral, 3 times daily insulin aspart U-100 (NovoLOG) 100 unit/mL (3 mL) InPn subcutaneous, 3 times daily before meals, Sliding Scale. Use as directed ipratropium (ATROVENT) 21 mcg (0.03 %) 0.03% nasal spray 2 sprays, intraNASAL, 2 times daily, One spray each nare levothyroxine (SYNTHROID) 75 mcg, oral, Every morning on an empty stomach sodium bicarbonate 650 MG tablet 1 tablet, oral, 2 times daily traZODone (DESYREL) 50 mg, oral, Every Night, 1/2 tab (25 mg) every night Review of Systems Review of Systems As above Last Recorded Vitals There were no vitals taken for this visit. Physical Exam Head atraumatic normal cephalic Constitutional alert oriented not in acute distress or pain Cardiovascular S1-S2 no murmur gallops or rubs appreciated Respiratory clear to quotation bilaterally no crepitation wheeze Diagnostic Results No visits with results within 1 Day(s) from this visit. Latest known visit with results is: No results displayed because visit has over 200 results. IR REQUEST - MISCELLANEOUS Narrative: TUNNELED CATHETER REMOVAL PHYSICIAN COMPLIANCE EXAMINER: Chris Tipton PA-C. RADIOLOGIST: Hussein Mast M.D. HISTORY: Tunneled dialysis catheter no longer needed, requests removal. PROCEDURE: After informed consent and a time-out were obtained, the patient was prepped and draped in the usual sterile fashion over the right anterior chest wall. 1% lidocaine was utilized for local anesthesia. The sutures were removed. Utilizing blunt dissection, the cuff of the catheter was dissected and removed. The catheter was withdrawn without complication. Hemostasis was obtained with manual compression over the venotomy site and over the chest wall access site. Impression: Status post implanted venous catheter removal, without complication. Images reviewed, interpreted, and dictated by Dr. Jamie Mast. Transcribed by Chris Tipton PA-C. Assessment and plan #Symptomatic Anemia Hemoglobin 5.1 Recheck H&H, ordered blood transfusion Order iron study Patient on iron supplement at home Patient have history of GI bleeding Start IV pantoprazole Consult gastroenterology Will keep n.p.o. at this time # Hyperkalemia Potassium 6.5, she was giving IV insulin.Ca Gluconate Potassium 5.9, will order IV insulin and dextrose, start Lokelma #chronic Kidney disease Gentle IV hydration Check kidney function Consult nephrology #H/O aortic stenosis #COPD Stable # HTN Can use hydralazine PRN Monitor BP #DM Sliding scale Insulin Monitor blood sugar # Hypothyroidism Continue with levothyroxine PT prophylaxis CCD due to anemia GI prophylaxis pantoprazole CODE STATUS patient is full code After Discussion with ER provider decision was made for admission Patient will require inpatient admission for greater than 48 hours for work-up and stabilization oftheir condition Electronically signed by: Vane Corley MD, 05/27/2025 at 3:15 PM documented in this encounter Consult Notes * Pa Santos MD - 05/28/2025 10:11 AM EDT Consults History of Present Illness: Lyssa Higgins is a 84 y.o. female with past medical hx of hypertension, hyperlipidemia, CAD, DM2, COPD, CKD, heart failure preserved infection fraction, and anemia who presents with shortness ofbreath. She has been eating rossi and canned soup. No recent changes to her medication. Denies any fever, chills, rigors, rash, hematuria or hemoptysis. No family hx of kidney disease or autoimmune disease. Denies any recent hx of NSAID use or kidney stones. Neprhology service has been consulted for CKD management Past Medical History: She has no past medical history on file. Past Surgical History: She has no past surgical history on file. Social History: She reports that she has never smoked. She has never used smokeless tobacco. She reports that she does not drink alcohol and does not use drugs. Family History: Her family history is not on file. Allergies: Ciprofloxacin, Codeine, Doxycycline, Erythromycin, and Sulfa (Sulfonamide Antibiotics) Medications: Medications Prior to Admission Medication Sig Dispense Refill Last Dose/Taking atorvastatin (LIPITOR) 80 MG tablet Take 1 tablet (80 mg total) by mouth nightly. cholecalciferol, vitamin D3, 1,250 mcg (50,000 unit) Tab Take 1 tablet (50,000 Units total) by mouth once a week. ferrous gluconate (FERGON) 324 MG tablet Take 1 tablet (324 mg total) by mouth daily with breakfast. fluticasone propion-salmeteroL (ADVAIR) 250-50 mcg/dose diskus inhaler Inhale 1 puff by mouth via inhaler 2 (two) times daily. hydrOXYzine (ATARAX) 10 MG tablet Take 1 tablet (10 mg total) by mouth 3 (three) times daily. insulin aspart U-100 (NovoLOG) 100 unit/mL (3 mL) InPn Inject subcutaneously 3 (three) times daily before meals Sliding Scale. Use as directed. ipratropium (ATROVENT) 21 mcg (0.03 %) 0.03% nasal spray 2 sprays by Nasal route 2 (two) times daily One spray each nare. levothyroxine (SYNTHROID, LEVOTHROID) 75 MCG tablet Take 1 tablet (75 mcg total) by mouth Every morning on an empty stomach. sodium bicarbonate 650 MG tablet Take 1 tablet (650 mg total) by mouth 2 (two) times daily. traZODone (DESYREL) 50 MG tablet Take 1 tablet (50 mg total) by mouth nightly 1/2 tab (25 mg) everynight. Review of Systems Review of 14 system was done and found to be negative except as noted above in HPI Vitals: Blood pressure 135/43, pulse 72, temperature 97.7 ??F (36.5 ??C), temperature source Oral, resp. rate 16, height 1.625 m (5' 3.98 ), weight 70.7 kg (155 lb 14.4 oz), SpO2 94%. Physical Exam Gen: Alert, NAD HEENT: NC, AT,EOMI, PERRLA Neck: Supple, no JVD Lungs: CTA. Non labored, symetrical chest expansion CVS: SI/S2 audible. RRR, No M/G noted Abd: soft, NT, ND, BS + Ext: No Pedal edema , no cyanosis,PPP BRICK STACKER: Alert,Oriented. Cranial nerves intact, No focal deficit noted grossly. Psy: Cooperative,appropriate mood and affect Skin: Warm dry and pink Relevant Results: Results for orders placed or performed during the hospital encounter of 05/27/25 (from the past 24 hours) Prepare RBC: 1 Units Status: None Collection Time: 05/27/25 3:23 PM Result Value Ref Range Issue Date/Time [id number] Product Identification Red Blood Cells Product Code U6199D19 Status Information TRANSFUSED Unit Number [id number] Blood Type 5100 Cross Match Results Compatible CBC with automated diff Status: Abnormal Collection Time: 05/27/25 3:47 PM Result Value Ref Range WBC 10.4 (H) 4.0 - 10.0 K/??L RBC 1.65 (L) 3.93 - 5.22 M/??L Hemoglobin 5.3 (LL) 11.2 - 15.7 GM/DL Hematocrit 16.9 (L) 34.1 - 44.9 % MCV 102 (H) 79 - 95 fL MCH 32.1 25.6 - 32.2 pg MCHC 31.4 (L) 32.2 - 35.5 GM/DL RDW 17.2 (H) 11.7 - 14.4 % Platelets 219 140 - 375 K/CU MM MPV 10.6 9.4 - 12.3 fL % Neutros 72 (H) 34 - 71 % % Lymphs 15 (L) 19 - 52 % % Monos 12 5 - 13 % % Eos 0 (L) 1 - 6 % % Baso 0 0 - 1 % NRBC Absolute <0.01 0 - 0.012 K/ul # Neutros 7.49 (H) 1.56 - 6.13 K/??L # Lymphs 1.55 1.18 - 3.74 K/??L # Monos 1.19 (H) 0.24 - 0.86 K/??L # Eos 0.04 0.04 - 0.36 K/??L # Baso <0.03 0.01 - 0.08 K/ L Immature Granulocytes-Relative 0.80 (H) 0.01 - 0.43 % # IG 0.08 (H) 0.00 - 0.03 K/uL Basic Metabolic Panel Status: Abnormal Collection Time: 05/27/25 3:47 PM Result Value Ref Range Sodium 141 136 - 145 meq/L Potassium 5.9 (H) 3.4 - 5.1 meq/L CO2 17 (L) 22 - 29 meq/L Chloride 112 98 - 112 meq/L Glucose 123 (H) 82 - 115 mg/dL BUN 103.5 (H) 9.8 - 20.1 mg/dL Creatinine 3.44 (H) 0.57 - 1.11 mg/dL BUN/Creatinine 30 (H) 8 - 20 Calcium 9.7 8.4 - 10.2 mg/dL Anion Gap 18 (H) 4 - 12 eGFR (mL/min/1.73m2) 13 (L) >=60 mL/min/1.73m2 Osmolality Calc 315.1 mOsm/kg Iron and TIBC Status: Abnormal Collection Time: 05/27/25 3:47 PM Result Value Ref Range Iron 74 50 - 170 ug/dL TIBC 203 (L) 250 - 435 ug/dL % Saturation 36 % UIBC 129 Ferritin Status: Normal Collection Time: 05/27/25 3:47 PM Result Value Ref Range Ferritin 115.24 4.63 - 204.00 ng/mL Type and Screen Status: None Collection Time: 05/27/25 3:48 PM Result Value Ref Range ABO/Rh O Positive Antibody Screen Negative HISTCHK HIST CHECK PERFORMED Glucose, Nova Meter Status: None Collection Time: 05/27/25 5:01 PM Result Value Ref Range POC-GLUCOSE 110 70 - 110 mg/dL Housekeeping Cleaner [id number] Glucose, Nova Meter Status: Abnormal Collection Time: 05/27/25 5:42 PM Result Value Ref Range POC-GLUCOSE 161 (H) 70 - 110 mg/dL Housekeeping Cleaner [id number] Hemoglobin and hematocrit Status: Abnormal Collection Time: 05/27/25 10:34 PM Result Value Ref Range Hemoglobin 6.4 (LL) 11.2 - 15.7 GM/DL Hematocrit 19.7 (L) 34.1 - 44.9 % Prepare RBC: 1 Units Status: None Collection Time: 05/27/25 10:54 PM Result Value Ref Range Issue Date/Time [id number] Product Identification Red Blood Cells Product Code [id number] Status Information TRANSFUSED Unit Number [id number] Blood Type 5100 Cross Match Results Compatible Glucose, Nova Meter Status: None Collection Time: 05/28/25 12:09 AM Result Value Ref Range POC-GLUCOSE 92 70 - 110 mg/dL Housekeeping Cleaner [id number] Glucose, Nova Meter Status: None Collection Time: 05/28/25 6:03 AM Result Value Ref Range POC-GLUCOSE 105 70 - 110 mg/dL Housekeeping Cleaner [id number] CBC - Hemogram (-BKR) Status: Abnormal Collection Time: 05/28/25 6:26 AM Result Value Ref Range WBC 7.8 4.0 - 10.0 K/??L RBC 2.59 (L) 3.93 - 5.22 M/??L Hemoglobin 7.9 (L) 11.2 - 15.7 GM/DL Hematocrit 24.7 (L) 34.1 - 44.9 % MCV 95 79 - 95 fL MCH 30.5 25.6 - 32.2 pg MCHC 32.0 (L) 32.2 - 35.5 GM/DL RDW 18.3 (H) 11.7 - 14.4 % Platelets 193 140 - 375 K/CU MM MPV 10.7 9.4 - 12.3 fL Basic Metabolic Panel Status: Abnormal Collection Time: 05/28/25 6:26 AM Result Value Ref Range Sodium 142 136 - 145 meq/L Potassium 5.3 (H) 3.4 - 5.1 meq/L CO2 18 (L) 22 - 29 meq/L Chloride 113 (H) 98 - 112 meq/L Glucose 106 82 - 115 mg/dL BUN 94.0 (H) 9.8 - 20.1 mg/dL Creatinine 3.48 (H) 0.57 - 1.11 mg/dL BUN/Creatinine 27 (H) 8 - 20 Calcium 9.2 8.4 - 10.2 mg/dL Anion Gap 16 (H) 4 - 12 eGFR (mL/min/1.73m2) 13 (L) >=60 mL/min/1.73m2 Osmolality Calc 312.6 mOsm/kg Recent Labs Lab(s) Units 05/28/25 0626 05/28/25 0603 05/28/25 0009 05/27/252233 05/27/25 1742 05/27/25 1701 05/27/25 1547 NA meq/L 142 -- -- -- -- -- 141 K meq/L 5.3* -- -- -- -- -- 5.9* CL meq/L 113* -- -- -- -- -- 112 CO2 meq/L 18* -- -- -- -- -- 17* BUN mg/dL 94.0* -- -- -- -- -- 103.5* CREATININE mg/dL 3.48* -- -- -- -- -- 3.44* GLUCOSE mg/dL 106 105 92 -- 161* < > 123* CALCIUM mg/dL 9.2 -- -- -- -- -- 9.7 WBC K/??L 7.8 -- -- -- -- -- 10.4* PLT K/CU MM 193 -- -- -- -- -- 219 HGB GM/DL 7.9* -- -- 6.4* -- -- 5.3* < > = values in this interval not displayed. Intake/Output Summary (Last 24 hours) at 05/28/2025 1015 Last data filed at 05/28/2025 0500 Gross per 24 hour Intake 656.66 ml Output -- Net 656.66 ml Assessment & Plan Principal Problem: GI bleeding 1- FIDEL on CKD stage IV - Baseline Scr 2.8-2.9 range. Progression of disease vs FIDEL- 2- Hx of chronic pericardial effusion 3- Anemia 4- HTN 5- DM 6- Hyperkalemia 7- Metabolic acidosis 8- Plan: - Gentle hydration. - Monitor I/O - Avoid nephrotoxic agents. - Renal diet - Adjust meds per renal function - No emergent need of MEDIA PLANNER - Monitor H/H and transfuse for Hgb less than 7.0 - Low sodium diet and fluid restriction 1.5 lit/day Electronically signed by Pa Santos MD 05/28/2025 at 10:11 AM * Ebony Gipson MD - 05/27/2025 6:00 PM EDTAssociated Order(s): Inpatient Consult to Gastroenterology Inpatient Consult to Gastroenterology Consult performed by: Ebony Gipson MD Consult ordered by: Vane Corley MD History of Present Illness: Lyssa Higgins is a 84 y.o. female with a BMI of 27 and history of multiple medical problems, such as CHF, aortic stenosis, mitral valve stenosis, COPD diabetes CKD stage III hypothyroidism anxiety depression chronic anemia hospitalized for fatigue weakness due to hemoglobin 5.1 potassium 6.5 creatinine 3.6 BUN 105. Patient denies any melena or rectal bleeding. She was hospitalized at [facility] 3 months ago with similar issue. Endoscopies were declined at that time due to her severe comorbidity. Past Medical History: She has no past medical history on file. Past Surgical History: She has no past surgical history on file. Social History: She reports that she has never smoked. She has never used smokeless tobacco. She reports that she does not drink alcohol and does not use drugs. Family History: Her family history is not on file. Allergies: Ciprofloxacin, Codeine, Doxycycline, Erythromycin, and Sulfa (Sulfonamide Antibiotics) Medications: Medications Prior to Admission Medication Sig Dispense Refill Last Dose/Taking atorvastatin (LIPITOR) 80 MG tablet Take 1 tablet (80 mg total) by mouth nightly. cholecalciferol, vitamin D3, 1,250 mcg (50,000 unit) Tab Take 1 tablet (50,000 Units total) by mouth once a week. ferrous gluconate (FERGON) 324 MG tablet Take 1 tablet (324 mg total) by mouth daily with breakfast. fluticasone propion-salmeteroL (ADVAIR) 250-50 mcg/dose diskus inhaler Inhale 1 puff by mouth via inhaler 2 (two) times daily. hydrOXYzine (ATARAX) 10 MG tablet Take 1 tablet (10 mg total) by mouth 3 (three) times daily. insulin aspart U-100 (NovoLOG) 100 unit/mL (3 mL) InPn Inject subcutaneously 3 (three) times daily before meals Sliding Scale. Use as directed. ipratropium (ATROVENT) 21 mcg (0.03 %) 0.03% nasal spray 2 sprays by Nasal route 2 (two) times daily One spray each nare. levothyroxine (SYNTHROID, LEVOTHROID) 75 MCG tablet Take 1 tablet (75 mcg total) by mouth Every morning on an empty stomach. sodium bicarbonate 650 MG tablet Take 1 tablet (650 mg total) by mouth 2 (two) times daily. traZODone (DESYREL) 50 MG tablet Take 1 tablet (50 mg total) by mouth nightly 1/2 tab (25 mg) everynight. Review of Systems Constitutional: Positive for fatigue and unexpected weight change. Neurological: Positive for weakness. All other systems reviewed and are negative. Vitals: Blood pressure 107/40, pulse 84, temperature 97.5 ??F (36.4 ??C), resp. rate 18, height 1.625 m (5'3.98 ), weight 70.7 kg (155 lb 14.4 oz), SpO2 98%. Physical Exam Vitals and nursing note reviewed. Exam conducted with a proof operator present. Constitutional: General: She is not in acute distress. Appearance: She is normal weight. She is ill-appearing. She is not toxic- appearing or diaphoretic. Abdominal: General: There is no distension. Palpations: Abdomen is soft. Tenderness: There is no abdominal tenderness. Neurological: Mental Status: She is alert. Relevant Results: Results for orders placed or performed during the hospital encounter of 05/27/25 (from the past 24 hours) Prepare RBC: 1 Units Status: None Collection Time: 05/27/25 3:23 PM Result Value Ref Range Issue Date/Time [id number] Product Identification Red Blood Cells Product Code E6605S53 Status Information TRANSFUSED Unit Number [id number] Blood Type 5100 Cross Match Results Compatible CBC with automated diff Status: Abnormal Collection Time: 05/27/25 3:47 PM Result Value Ref Range WBC 10.4 (H) 4.0 - 10.0 K/??L RBC 1.65 (L) 3.93 - 5.22 M/??L Hemoglobin 5.3 (LL) 11.2 - 15.7 GM/DL Hematocrit 16.9 (L) 34.1 - 44.9 % MCV 102 (H) 79 - 95 fL MCH 32.1 25.6 - 32.2 pg MCHC 31.4 (L) 32.2 - 35.5 GM/DL RDW 17.2 (H) 11.7 - 14.4 % Platelets 219 140 - 375 K/CU MM MPV 10.6 9.4 - 12.3 fL % Neutros 72 (H) 34 - 71 % % Lymphs 15 (L) 19 - 52 % % Monos 12 5 - 13 % % Eos 0 (L) 1 - 6 % % Baso 0 0 - 1 % NRBC Absolute <0.01 0 - 0.012 K/ul # Neutros 7.49 (H) 1.56 - 6.13 K/??L # Lymphs 1.55 1.18 - 3.74 K/??L # Monos 1.19 (H) 0.24 - 0.86 K/??L # Eos 0.04 0.04 - 0.36 K/??L # Baso <0.03 0.01 - 0.08 K/ L Immature Granulocytes-Relative 0.80 (H) 0.01 - 0.43 % # IG 0.08 (H) 0.00 - 0.03 K/uL Basic Metabolic Panel Status: Abnormal Collection Time: 05/27/25 3:47 PM Result Value Ref Range Sodium 141 136 - 145 meq/L Potassium 5.9 (H) 3.4 - 5.1 meq/L CO2 17 (L) 22 - 29 meq/L Chloride 112 98 - 112 meq/L Glucose 123 (H) 82 - 115 mg/dL BUN 103.5 (H) 9.8 - 20.1 mg/dL Creatinine 3.44 (H) 0.57 - 1.11 mg/dL BUN/Creatinine 30 (H) 8 - 20 Calcium 9.7 8.4 - 10.2 mg/dL Anion Gap 18 (H) 4 - 12 eGFR (mL/min/1.73m2) 13 (L) >=60 mL/min/1.73m2 Osmolality Calc 315.1 mOsm/kg Iron and TIBC Status: Abnormal Collection Time: 05/27/25 3:47 PM Result Value Ref Range Iron 74 50 - 170 ug/dL TIBC 203 (L) 250 - 435 ug/dL % Saturation 36 % UIBC 129 Ferritin Status: Normal Collection Time: 05/27/25 3:47 PM Result Value Ref Range Ferritin 115.24 4.63 - 204.00 ng/mL Type and Screen Status: None Collection Time: 05/27/25 3:48 PM Result Value Ref Range ABO/Rh O Positive Antibody Screen Negative HISTCHK HIST CHECK PERFORMED Glucose, Nova Meter Status: None Collection Time: 05/27/25 5:01 PM Result Value Ref Range POC-GLUCOSE 110 70 - 110 mg/dL Housekeeping Cleaner [id number] Glucose, Nova Meter Status: Abnormal Collection Time: 05/27/25 5:42 PM Result Value Ref Range POC-GLUCOSE 161 (H) 70 - 110 mg/dL Housekeeping Cleaner [id number] Assessment & Plan Principal Problem: GI bleeding Her anemia is likely due to chronic diseases, evident by her normal ferritin and iron level. Any endoscopy at this time will be high risk due to her other severe comorbidity. There is no urgency to pursue endoscopy at this time. I asked the patient and her family to decide whether to consider endoscopy in the near future when she is more stable. Nonetheless, again any invasive procedure at this time will be risky due to her cardiac condition. All question answered. Electronically signed by Ebony Gipson MD 05/27/2025 at 6:00 PM documented in this encounter Miscellaneous Notes * Plan of Care - Charley Ibanez RN - 05/28/2025 8:11 PM EDT Problem: Compromised Skin Integrity Goal: LTG - Patient will be free from infection Outcome: Progressing Goal: LTG - Patient will maintain/improve skin integrity through proper skin care techniques Outcome: Progressing Goal: LTG - Patient will demonstrate appropriate pressure relief techniques Outcome: Progressing Goal: LTG - Patient will demonstrate appropriate skin care techniques Outcome: Progressing Goal: LTG - Patient will be free from infection Outcome: Progressing Goal: STG - Patient demonstrates skin care/treatment/dressing change Outcome: Progressing Goal: STG - Patient will maintain good skin integrity Outcome: Progressing Goal: STG - Patient exhibits signs of wound healing. Outcome: Progressing Goal: STG - Patient demonstrates pressure reduction techniques Outcome: Progressing Goal: STG - Patient demonstrates preventative skin care measures Outcome: Progressing Problem: HEMATOLOGIC Goal: Maintains hematologic stability Outcome: Progressing * Plan of Care - Nicki Morrison - 05/28/2025 1:28 PM EDT Problem: Compromised Skin Integrity Goal: LTG - Patient will be free from infection Outcome: Progressing Goal: LTG - Patient will maintain/improve skin integrity through proper skin care techniques Outcome: Progressing Goal: LTG - Patient will demonstrate appropriate pressure relief techniques Outcome: Progressing Goal: LTG - Patient will demonstrate appropriate skin care techniques Outcome: Progressing Goal: LTG - Patient will be free from infection Outcome: Progressing Goal: STG - Patient demonstrates skin care/treatment/dressing change Outcome: Progressing Goal: STG - Patient will maintain good skin integrity Outcome: Progressing Goal: STG - Patient exhibits signs of wound healing. Outcome: Progressing Goal: STG - Patient demonstrates pressure reduction techniques Outcome: Progressing Goal: STG - Patient demonstrates preventative skin care measures Outcome: Progressing Problem: HEMATOLOGIC Goal: Maintains hematologic stability Outcome: Progressing * Plan of Care - Viri Shin RN - 05/28/2025 1:00 AM EDT Problem: Compromised Skin Integrity Goal: LTG - Patient will be free from infection 05/28/2025 07 by Viri Shin RN Outcome: Progressing 05/27/20252006 by Viri Shin RN Outcome: Progressing Goal: LTG - Patient will maintain/improve skin integrity through proper skin care techniques 05/28/2025 07 by Viri Shin RN Outcome: Progressing 05/27/20252006 by Viri Shin RN Outcome: Progressing Goal: LTG - Patient will demonstrate appropriate pressure relief techniques 05/28/2025 07 by Viri Shin RN Outcome: Progressing 05/27/20252006 by Viri Shin RN Outcome: Progressing Goal: LTG - Patient will demonstrate appropriate skin care techniques 05/28/2025 07 by Viri Shin RN Outcome: Progressing 05/27/20252006 by Viri Shin RN Outcome: Progressing Goal: LTG - Patient will be free from infection 05/28/2025 07 by Viri Shin RN Outcome: Progressing 05/27/20252006 by Viri Shin RN Outcome: Progressing Goal: STG - Patient demonstrates skin care/treatment/dressing change 05/28/2025 07 by Viri Shin RN Outcome: Progressing 05/27/20252006 by Viri Shin RN Outcome: Progressing Goal: STG - Patient will maintain good skin integrity 05/28/2025 0704 by Viri Shin RN Outcome: Progressing 05/27/20252006 by Viri Shin RN Outcome: Progressing Goal: STG - Patient exhibits signs of wound healing. 05/28/2025 0704 by Viri Shin RN Outcome: Progressing 05/27/20252006 by Viri Shin RN Outcome: Progressing Goal: STG - Patient demonstrates pressure reduction techniques 05/28/2025 07 by Viri Shin RN Outcome: Progressing 05/27/20252006 by Viri Shin RN Outcome: Progressing Goal: STG - Patient demonstrates preventative skin care measures 05/28/2025 07 by Viri Shin RN Outcome: Progressing 05/27/20252006 by Viri Shin RN Outcome: Progressing Problem: HEMATOLOGIC Goal: Maintains hematologic stability Outcome: Progressing * Plan of Care - Viri Shin RN - 05/27/2025 8:07 PM EDT Problem: Compromised Skin Integrity Goal: LTG - Patient will be free from infection Outcome: Progressing Goal: LTG - Patient will maintain/improve skin integrity through proper skin care techniques Outcome: Progressing Goal: LTG - Patient will demonstrate appropriate pressure relief techniques Outcome: Progressing Goal: LTG - Patient will demonstrate appropriate skin care techniques Outcome: Progressing Goal: LTG - Patient will be free from infection Outcome: Progressing Goal: STG - Patient demonstrates skin care/treatment/dressing change Outcome: Progressing Goal: STG - Patient will maintain good skin integrity Outcome: Progressing Goal: STG - Patient exhibits signs of wound healing. Outcome: Progressing Goal: STG - Patient demonstrates pressure reduction techniques Outcome: Progressing Goal: STG - Patient demonstrates preventative skin care measures Outcome: Progressing * Plan of Care - Cyndi Mendez RN - 05/27/2025 4:46 PM EDT Problem: Compromised Skin Integrity Goal: LTG - Patient will be free from infection 05/27/2025 1646 by Cyndi Mendez RN Outcome: Progressing 05/27/2025 1539 by Cyndi Mendez RN Outcome: Progressing Goal: LTG - Patient will maintain/improve skin integrity through proper skin care techniques 05/27/2025 1646 by Cyndi Mendez RN Outcome: Progressing 05/27/2025 1539 by Cyndi Mendez RN Outcome: Progressing Goal: LTG - Patient will demonstrate appropriate pressure relief techniques 05/27/2025 1646 by Cyndi Mendez RN Outcome: Progressing 05/27/2025 1539 by Cyndi Mendez RN Outcome: Progressing Goal: LTG - Patient will demonstrate appropriate skin care techniques 05/27/2025 1646 by Cyndi Mendez RN Outcome: Progressing 05/27/2025 1539 by Cyndi Mendez RN Outcome: Progressing Goal: LTG - Patient will be free from infection 05/27/2025 1646 by Cyndi Mendez RN Outcome: Progressing 05/27/2025 1539 by Cyndi Mendez RN Outcome: Progressing Goal: STG - Patient demonstrates skin care/treatment/dressing change 05/27/2025 1646 by Cyndi Mendez RN Outcome: Progressing 05/27/2025 1539 by Cyndi Mendez RN Outcome: Progressing Goal: STG - Patient will maintain good skin integrity 05/27/2025 1646 by Cyndi Mendez RN Outcome: Progressing 05/27/2025 1539 by Cyndi Mendez RN Outcome: Progressing Goal: STG - Patient exhibits signs of wound healing. 05/27/2025 1646 by Cyndi Mendez RN Outcome: Progressing 05/27/2025 1539 by Cyndi Mendez RN Outcome: Progressing Goal: STG - Patient demonstrates pressure reduction techniques 05/27/2025 1646 by Cyndi Mendez RN Outcome: Progressing 05/27/2025 1539 by Cyndi Mendez RN Outcome: Progressing Goal: STG - Patient demonstrates preventative skin care measures 05/27/2025 1646 by Cyndi Mendez RN Outcome: Progressing 05/27/2025 1539 by Cyndi Mendez RN Outcome: Progressing * Plan of Care - Cyndi Mendez RN - 05/27/2025 3:39 PM EDT Problem: Compromised Skin Integrity Goal: LTG - Patient will be free from infection Outcome: Progressing Goal: LTG - Patient will maintain/improve skin integrity through proper skin care techniques Outcome: Progressing Goal: LTG - Patient will demonstrate appropriate pressure relief techniques Outcome: Progressing Goal: LTG - Patient will demonstrate appropriate skin care techniques Outcome: Progressing Goal: LTG - Patient will be free from infection Outcome: Progressing Goal: STG - Patient demonstrates skin care/treatment/dressing change Outcome: Progressing Goal: STG - Patient will maintain good skin integrity Outcome: Progressing Goal: STG - Patient exhibits signs of wound healing. Outcome: Progressing Goal: STG - Patient demonstrates pressure reduction techniques Outcome: Progressing Goal: STG - Patient demonstrates preventative skin care measures Outcome: Progressing documented in this encounter Plan of Treatment Not on file documented as of this encounter Procedures Procedure Name Priority Date/Time Associated Diagnosis Comments NOVA GLUCOSE POC Routine 05/29/2025 10:4 6 AM EDT NOVA GLUCOSE POC Routine 05/29/2025 4:53 AM EDT CBC W/ AUTO DIFF Routine 05/29/2025 2:50 AM EDT BASIC METABOLIC PANEL Routine 05/29/2025 2:50 AM EDT NOVA GLUCOSE POC Routine 05/28/2025 11:2 9 PM EDT NOVA GLUCOSE POC Routine 05/28/2025 7:4 1 PM EDT NOVA GLUCOSE POC Routine 05/28/2025 3:37 PM EDT UREA NITROGEN, RANDOM URINE Routine 05/28/2025 1:19 PM EDT PROTEIN / CREATININE RATIO, URINE Routine 05/28/2025 1:19 PM EDT SODIUM, RANDOM URINE Routine 05/28/2025 1:19 PM EDT URINALYSIS W/ MICROSCOPIC Routine 05/28/2025 1:19 PM EDT NOVA GLUCOSE POC Routine 05/28/2025 10:4 3 AM EDT CBC HEMOGRAM (SJ-BKR) Routine 05/28/2025 6:26 AM EDT URIC ACID Add-On 05/28/2025 6:26 AM EDT MAGNESIUM Add-On 05/28/2025 6:26 AM EDT LACTATE DEHYDROGENASE (LDH) Add-On 05/28/2025 6:26 AM EDT CREATINE KINASE (CK) Add-On 05/28/2025 6:26 AM EDT BASIC METABOLIC PANEL Routine 05/28/2025 6:26 AM EDT NOVA GLUCOSE POC Routine 05/28/2025 6:03 AM EDT FS_MODEL_IP_TRANSFUSE RED BLOOD CELLS Routine 05/28/2025 1:11 AM EDT NOVA GLUCOSE POC Routine 05/28/2025 12:0 9 AM EDT FS_MODEL_IP_PREPARE RBC Routine 05/27/2025 10:54 PM EDT HEMOGLOBIN AND HEMATOCRIT Routine 05/27/2025 10:34 PM EDT NOVA GLUCOSE POC Routine 05/27/2025 5:42 PM EDT FS_MODEL_IP_TRANSFUSE RED BLOOD CELLS Routine 05/27/2025 5:10 PM EDT NOVA GLUCOSE POC Routine 05/27/2025 5:01 PM EDT TYPE AND SCREEN ([place] BKR) Routine 05/27/2025 3:48 PM EDT CBC W/ AUTO DIFF Routine 05/27/2025 3:47 PM EDT IRON AND TIBC Routine 05/27/2025 3:47 PM EDT FERRITIN Routine 05/27/2025 3:47 PM EDT BASIC METABOLIC PANEL Routine 05/27/2025 3:47 PM EDT FS_MODEL_IP_PREPARE RBC Routine 05/27/2025 3:23 PM EDT documented in this encounter Results * (ABNORMAL) Glucose, Nova Meter (05/29/2025 10:46 AM EDT) POC-GLUCOSE 183(H) 70 - 110 mg/dL 05/29/2025 10:47 AM EDT [facility] Comment: In the event of poor peripheral blood flow, venous or arterial blood should be used due to the potential of erroneous results. Notified Nurse RBV Housekeeping Cleaner [id number] 05/29/2025 10:47 AM EDT [facility] Blood WHOLE BLOOD / Unknown 05/29/2025 10:46 AM EDT 05/29/2025 10:47 AM EDT Narrative [facility] - 05/29/2025 10:47 AM EDT Housekeeping Cleaner ID is - [id number] Vane Corley MD POINT OF CARE TEST ORDERABLES Final Result [facility] [address] [phone] * (ABNORMAL) Glucose, Nova Meter (05/29/2025 4:53 AM EDT) POC-GLUCOSE 141(H) 70 - 110 mg/dL 05/29/2025 4:54 AM EDT [facility] Comment: In the event of poor peripheral blood flow, venous or arterial blood should be used due to the potential of erroneous results. Protocols Followed Notified Nurse RBV Housekeeping Cleaner [id number] 05/29/2025 4:54 AM EDT [facility] Blood WHOLE BLOOD / Unknown 05/29/2025 4:53 AM EDT 05/29/2025 4:54 AM EDT Narrative [facility] - 05/29/2025 4:54 AM EDT Housekeeping Cleaner ID is - [id number] Vane Corley MD POINT OF CARE TEST ORDERABLES Final Result [facility] [address] [phone] * (ABNORMAL) Basic Metabolic Panel (05/29/2025 2:50 AM EDT) Sodium 143 136 - 145 meq/L 05/29/2025 3:48 AM EDT [facility] Potassium 4.6 3.4 - 5.1 meq/L 05/29/2025 3:48 AM EDT [facility] CO2 20(L) 22 - 29 meq/L 05/29/2025 3:48 AM EDT [facility] Chloride 113(H) 98 - 112 meq/L 05/29/2025 3:48 AM EDT [facility] Glucose 134(H) 82 - 115 mg/dL 05/29/2025 3:48 AM EDT [facility] BUN 83.4(H) 9.8 - 20.1 mg/dL 05/29/2025 3:48 AM EDT [facility] Creatinine 3.13(H) 0.57 - 1.11 mg/dL 05/29/2025 3:48 AM EDT [facility] BUN/Creatinine 27(H) 8 - 20 05/29/2025 3:48 AM EDT [facility] Calcium 8.7 8.4 - 10.2 mg/dL 05/29/2025 3:48 AM EDT [facility] Anion Gap 15(H) 4 - 12 05/29/2025 3:48 AM EDT [facility] eGFR (mL/min/1.73m2) 14(L) >=60 mL/min/1.7 3m2 05/29/2025 3:48 AM EDT [facility] Comment:ESTIMATED GFR IS NOT ACCURATE CREATININE CLEARANCE IN PREDICTING GLOMERULAR FILTRATION RATE. ESTIMATED GFR IS NOT APPLICABLE FOR DIALYSIS PATIENTS. Osmolality Calc 312.2 mOsm/kg 3:48 AM EDT [facility] Blood Venipuncture / Unknown 05/29/2025 2:50 AM EDT 05/29/2025 3:18 AM EDT us Vane Corley MD LAB BLOOD ORDERABLES Final Re sult [facility] [address] [phone] * (ABNORMAL) CBC with Automated Diff (05/29/2025 2:50 AM EDT) WBC 8.1 4.0 - 10.0 K/ L 05/29/2025 3:24 AM EDT [facility] RBC 2.66(L) 3.93 - 5.22 M/ L 05/29/2025 3:24 AM EDT [facility] Hemoglobin 8.0(L) 11.2 - 15.7 GM/DL 05/29/2025 3:24 AM EDT [facility] Hematocrit 25.6(L) 34.1 - 44.9 % 05/29/2025 3:24 AM EDT [facility] MCV 96(H) 79 - 95 fL 05/29/2025 3:24 AM EDT [facility] MCH 30.1 25.6 - 32.2 pg 05/29/2025 3:24 AM EDT [facility] MCHC 31.3(L) 32.2 - 35.5 GM/DL 05/29/2025 3:24 AM EDT [facility] RDW 18.7(H) 11.7 - 14.4 % 05/29/2025 3:24 AM EDT [facility] Platelets 215 140 - 375 K/CU MM 05/29/2025 3:24 AM EDT [facility] MPV 10.5 9.4 - 12.3 fL 05/29/2025 3:24 AM EDT [facility] % Neutros 71 34 - 71 % 05/29/2025 3:24 AM EDT [facility] % Lymphs 15(L) 19 - 52 % 05/29/2025 3:24 AM EDT [facility] % Monos 12 5 - 13 % 05/29/2025 3:24 AM EDT [facility] % Eos 2 1 - 6 % 05/29/2025 3:24 AM EDT [facility] % Baso 0 0 - 1 % 05/29/2025 3:24 AM EDT [facility] NRBC Absolute <0.01 0 - 0.012 K/ul 05/29/2025 3:24 AM EDT [facility] # Neutros 5.67 1.56 - 6.13 K/ L 05/29/2025 3:24 AM EDT [facility] # Lymphs 1.20 1.18 - 3.74 K/ L 05/29/2025 3:24 AM EDT [facility] # Monos 0.99(H) 0.24 - 0.86 K/ L 05/29/2025 3:24 AM EDT [facility] # Eos 0.13 0.04 - 0.36 K/ L 05/29/2025 3:24 AM EDT [facility] # Baso <0.03 0.01 - 0.08 K/ L 05/29/2025 3:24 AM EDT [facility] % Imm Grans 0.50(H) 0.01 - 0.43 % 05/29/2025 3:24 AM EDT [facility] # IG 0.04(H) 0.00 - 0.03 K/uL 05/29/2025 3:24 AM EDT [facility] Blood Venipuncture / Unknown 05/29/2025 2:50 AM EDT 05/29/2025 3:17 AM EDT Narrative [facility] - 05/29/2025 3:24 AM EDT When CBC w/ Auto Diff is ordered the lab will add a Manual Differential as a quality check at no additional charge if: Lymphocytes greater than seventy five percent with normal or increased WBC Monocytes greater than Fifteen percent Basophil greater than four percent Bands >10% or several immature myeloids are seen on scan Blast? Flag noted Atypical Lymph flag noted us Vane Corley MD LAB BLOOD ORDERABLES Final Re sult [facility] [address] [phone] * (ABNORMAL) Glucose, Nova Meter (05/28/2025 11:29 PM EDT) POC-GLUCOSE 156(H) 70 - 110 mg/dL 05/28/2025 11:30 PM EDT [facility] Comment: In the event of poor peripheral blood flow, venous or arterial blood should be used due to the potential of erroneous results. Protocols Followed Housekeeping Cleaner [id number] 05/28/2025 11:30 PM EDT [facility] Blood WHOLE BLOOD / Unknown 05/28/2025 11:29 PM EDT 05/28/2025 11:30 PM EDT [facility] - 05/28/2025 11:30 PM EDT Housekeeping Cleaner ID is - [id number] us Vane Corley MD POINT OF CARE TEST ORDERABLES Final Result [facility] [address] [phone] * (ABNORMAL) Glucose, Nova Meter (05/28/2025 7:41 PM EDT) POC-GLUCOSE 194(H) 70 - 110 mg/dL 05/28/2025 7:43 PM EDT [facility] Comment: In the event of poor peripheral blood flow, venous or arterial blood should be used due to the potential of erroneous results. Protocols Followed Notified Nurse RBV Housekeeping Cleaner [id number] 05/28/2025 7:43 PM EDT [facility] Blood WHOLE BLOOD / Unknown 05/28/2025 7:41 PM EDT 05/28/2025 7:43 PM EDT [facility] - 05/28/2025 7:43 PM EDT Housekeeping Cleaner ID is - [id number] Vane Corley MD POINT OF CARE TEST ORDERABLES Final Result [facility] [address] [phone] * Glucose, Nova Meter (05/28/2025 3:37 PM EDT) POC-GLUCOSE 99 70 - 110 mg/dL 05/28/2025 3:39 PM EDT [facility] Comment: In the event of poor peripheral blood flow, venous or arterial blood should be used due to the potential of erroneous results. Protocols Followed Housekeeping Cleaner [id number] 05/28/2025 3:39 PM EDT [facility] Blood WHOLE BLOOD / Unknown 05/28/2025 3:37 PM EDT 05/28/2025 3:39 PM EDT Narrative [facility] - 05/28/2025 3:39 PM EDT Housekeeping Cleaner ID is - [id number] Vane Corley MD POINT OF CARE TEST ORDERABLES Final Result Performing Organization Address [facility]/ZIP Co de Phone Number [facility] [address] [phone] * Urea Nitrogen, random urine (05/28/2025 1:19 PM EDT) Urea Nitrogen, Ur 562 mg/dL 05/28/2025 1:45 PM EDT [facility] Comment: Reference Range not established Reference range not established Urine 05/28/2025 1:19 PM EDT 05/28/2025 1:21 PM EDT Pa Santos MD URINE ORDERABLES Final Result Performing Organization Address [facility]/ZIP Co de Phone Number [facility] [address] [phone] * (ABNORMAL) Protein / creatinine ratio, urine (05/28/2025 1:19 PM EDT) Creatinine, Ur 39.00(L) 47.00 - 110.00 mg/dL 05/28/2025 1:45 PM EDT [facility] Protein Creatinine Ratio 1.95(H) <=0.20 05/28/2025 1:45 PM EDT [facility] Protein, Urine 76(H) 1 - 14 mg/dL 05/28/2025 1:45 PM EDT [facility] Urine 05/28/2025 1:19 PM EDT 05/28/2025 1:21 PM EDT us Pa Santos MD URINE ORDERABLES Final Result Performing Organization Address [facility]/ZIP Co co Phone Number [facility] [address] [phone] * Sodium, random urine (05/28/2025 1:19 PM EDT) Sodium Urine 56 See Comment meq/L 05/28/2025 1:45 PM EDT [facility] Comment:Reference Range not established Urine 05/28/2025 1:19 PM EDT 05/28/2025 1:21 PM EDT us Pa Santos MD URINE ORDERABLES Final Result Performing Organization Address City/[facility]/ZIP Co de Phone Number [facility] [address] [place] [address], [facility] [phone] * (ABNORMAL) Urinalysis w/Microscopic (05/28/2025 1:19 PM EDT) Color, UA Light Yellow 05/28/2025 1:29 PM EDT [facility] Clarity, UA Clear Clear 05/28/2025 1:29 PM EDT [facility] Specific [place], UA 1.012 1.005 - 1.030 05/28/2025 1:29 PM EDT [facility] pH, UA 5.5(L) 6.0 - 8.0 05/28/2025 1:29 PM EDT [facility] Leukocytes, UA Negative Negative 05/28/2025 1:29 PM EDT [facility] Nitrite, UA Negative Negative 05/28/2025 1:29 PM EDT [facility] Protein, UA 1+(A) Negative 05/28/2025 1:29 PM EDT [facility] Glucose, UA 4+(A) Normal 05/28/2025 1:29 PM EDT [facility] Ketones, UA Negative Negative 05/28/2025 1:29 PM EDT [facility] Urobilinogen, UA Normal Normal 05/28/2025 1:29 PM EDT [facility] Bilirubin, UA Negative Negative 05/28/2025 1:29 PM EDT [facility] Blood, UA Negative Negative 05/28/2025 1:29 PM EDT [facility] RBC, UA 0-2(A) None Seen /HPF 05/28/2025 1:29 PM EDT [facility] WBC, UA 0-2(A) None Seen /HPF 05/28/2025 1:29 PM EDT [facility] Bacteria, UA None Seen None Seen, Trace 05/28/2025 1:29 PM EDT [facility] SQUAMOUS EPITHELIAL 0-2(A) None Seen /HPF 05/28/2025 1:29 PM EDT [facility] Specimen Source Urine, Sterile Collection 05/28/2025 1:29 PM EDT [facility] Urine STERILE URINE SPECIMEN CONTAINER / Unknown 05/28/2025 1:19 PM EDT 05/28/2025 1:24 PM EDT Pa Snatos MD URINE ORDERABLES Final Result [facility] [address] [phone] * (ABNORMAL) Glucose, Nova Meter (05/28/2025 10:43 AM EDT) POC-GLUCOSE 191(H) 70 - 110 mg/dL 05/28/2025 10:47 AM EDT [facility] Comment: In the event of poor peripheral blood flow, venous or arterial blood should be used due to the potential of erroneous results. Notified Nurse RBV Housekeeping Cleaner [id number] 05/28/2025 10:47 AM EDT [facility] Blood WHOLE BLOOD / Unknown 05/28/2025 10:43 AM EDT 05/28/2025 10:47 AM EDT Narrative [facility] - 05/28/2025 10:47 AM EDT Housekeeping Cleaner ID is - [id number] us Vane Corley MD POINT OF CARE TEST ORDERABLES Final Result Performing Organization Address City/[facility]/ZIP Co de Phone Number [facility] [address] [phone] * Magnesium (05/28/2025 6:26 AM EDT) Magnesium 1.8 1.6 - 2.6 mg/dL 05/28/2025 6:38 PM EDT [facility] Blood Venipuncture / Unknown 05/28/2025 6:26 AM EDT 05/28/2025 6:33 AM EDT us Vane Corley MD LAB BLOOD ORDERABLES Final Re sult Performing Organization Address [facility]/ZIP Co de Phone Number [facility] [address] [phone] * Lactate dehydrogenase (LDH) (05/28/2025 6:26 AM EDT) LDH 165 125 - 220 U/L 05/28/2025 12:09 PM EDT [facility] Blood Venipuncture / Unknown 05/28/2025 6:26 AM EDT 05/28/2025 6:33 AM EDT us Pa Santos MD LAB BLOOD ORDERABLES Final Resu lt Performing Organization Address City/[facility]/ZIP Co de Phone Number [facility] [address] [phone] * Creatine Kinase (CK) (05/28/2025 6:26 AM EDT) Total CK 41 29 - 168 U/L 05/28/2025 12:09 PM EDT [facility] Blood Venipuncture / Unknown 05/28/2025 6:26 AM EDT 05/28/2025 6:33 AM EDT Pa Santos MD LAB BLOOD ORDERABLES Final Resu lt Performing Organization Address City/[facility]/ZIP Co de Phone Number [facility] [address] [phone] * (ABNORMAL) Uric acid (05/28/2025 6:26 AM EDT) Pathologist [facility] Uric Acid 6.7(H) 2.5 - 6.2 mg/dL 05/28/2025 12:09 PM EDT [facility] Blood Venipuncture / Unknown 05/28/2025 6:26 AM EDT 05/28/2025 6:33 AM EDT Pa Santos MD LAB BLOOD ORDERABLES Final Resu lt Performing Organization Address [facility] Co de Phone Number [facility] [address] [phone] * (ABNORMAL) Basic Metabolic Panel (05/28/2025 6:26 AM EDT) Pathologist [facility] Sodium 142 136 - 145 meq/L 05/28/2025 6:59 AM EDT [facility] Potassium 5.3(H) 3.4 - 5.1 meq/L 05/28/2025 6:59 AM EDT [facility] CO2 18(L) 22 - 29 meq/L 05/28/2025 6:59 AM EDT [facility] Chloride 113(H) 98 - 112 meq/L 05/28/2025 6:59 AM EDT [facility] Glucose 106 82 - 115 mg/dL 05/28/2025 6:59 AM EDT [facility] BUN 94.0(H) 9.8 - 20.1 mg/dL 05/28/2025 6:59 AM EDT [facility] Creatinine 3.48(H) 0.57 - 1.11 mg/dL 05/28/2025 6:59 AM EDT [facility] BUN/Creatinine 27(H) 8 - 20 05/28/2025 6:59 AM EDT [facility] Calcium 9.2 8.4 - 10.2 mg/dL 05/28/2025 6:59 AM EDT [facility] Anion Gap 16(H) 4 - 12 05/28/2025 6:59 AM EDT [facility] eGFR (mL/min/1.73m2) 13(L) >=60 mL/min/1.7 3m2 05/28/2025 6:59 AM EDT [facility] Comment:ESTIMATED GFR IS NOT ACCURATE CREATININE CLEARANCE IN PREDICTING GLOMERULAR FILTRATION RATE. ESTIMATED GFR IS NOT APPLICABLE FOR DIALYSIS PATIENTS. Osmolality Calc 312.6 mOsm/kg 6:59 AM EDT [facility] Blood Venipuncture / Unknown 05/28/2025 6:26 AM EDT 05/28/2025 6:33 AM EDT us Vane Corley MD LAB BLOOD ORDERABLES Final Re sult [facility] [address] [phone] * (ABNORMAL) CBC - Hemogram (SJ-BKR) (05/28/2025 6:26 AM EDT) WBC 7.8 4.0 - 10.0 K/ L 05/28/2025 6:43 AM EDT [facility] RBC 2.59(L) 3.93 - 5.22 M/ L 05/28/2025 6:43 AM EDT [facility] Hemoglobin 7.9(L) 11.2 - 15.7 GM/DL 05/28/2025 6:43 AM EDT [facility] Hematocrit 24.7(L) 34.1 - 44.9 % 05/28/2025 6:43 AM EDT [facility] MCV 95 79 - 95 fL 05/28/2025 6:43 AM EDT [facility] MCH 30.5 25.6 - 32.2 pg 05/28/2025 6:43 AM EDT [facility] MCHC 32.0(L) 32.2 - 35.5 GM/DL 05/28/2025 6:43 AM EDT [facility] RDW 18.3(H) 11.7 - 14.4 % 05/28/2025 6:43 AM EDT [facility] Platelets 193 140 - 375 K/CU MM 05/28/2025 6:43 AM EDT [facility] MPV 10.7 9.4 - 12.3 fL 05/28/2025 6:43 AM EDT [facility] Blood Venipuncture / Unknown 05/28/2025 6:26 AM EDT 05/28/2025 6:33 AM EDT Vane Corley MD LAB BLOOD ORDERABLES Final Re sult [facility] [address] [phone] * Glucose, Nova Meter (05/28/2025 6:03 AM EDT) POC-GLUCOSE 105 70 - 110 mg/dL 05/28/2025 6:04 AM EDT [facility] Comment: In the event of poor peripheral blood flow, venous or arterial blood should be used due to the potential of erroneous results. Notified Nurse RBV Housekeeping Cleaner [phone] 05/28/2025 6:04 AM EDT [facility] Blood WHOLE BLOOD / Unknown 05/28/2025 6:03 AM EDT 05/28/2025 6:04 AM EDT Narrative [facility] - 05/28/2025 6:04 AM EDT Housekeeping Cleaner ID is - [id number] Vane Corley MD POINT OF CARE TEST ORDERABLES Final Result [facility] [address] [phone] * Transfuse RBC (05/28/2025 5:09 AM EDT) Karlo Hercules PA-C FS_MODEL_IP_BLOOD TRANSFUSION ORDERABLES Final Result * Transfuse RBC: 1 Units (05/28/2025 5:09 AM EDT) us Karlo Hercules PA-C FS_MODEL_IP_BLOOD TRANSFUSION ORDERABLES Final Result * Glucose, Nova Meter (05/28/2025 12:09 AM EDT) Pathologist [facility] POC-GLUCOSE 92 70 - 110 mg/dL 05/28/2025 12:10 AM EDT [facility] Comment: In the event of poor peripheral blood flow, venous or arterial blood should be used due to the potential of erroneous results. Notified Nurse RBV Housekeeping Cleaner [phone] 05/28/2025 12:10 AM EDT [facility] Blood WHOLE BLOOD / Unknown 05/28/2025 12:09 AM EDT 05/28/2025 12:10 AM EDT Narrative [facility] - 05/28/2025 12:10 AM EDT Housekeeping Cleaner ID is - [id number] us Vane Corley MD POINT OF CARE TEST ORDERABLES Final Result [facility] [address] [phone] * Prepare RBC: 1 Units (05/27/2025 10:54 PM EDT) Pathologist [facility] Issue Date/Time [id number] [facility] ([place]) Product Identification Red Blood Cells [facility] (MD) Product Code [id number] [facility] ([place]) Status Information TRANSFUSED [facility] ([place]) Unit Number [id number] [facility] ([place]) Blood Type 5100 [facility] ([place]) Cross Match Results Compatible [facility] (MD) Karlo Hercules PA-C FS_MODEL_IP_BLOOD BANK PRODUCT ORDERABLES Final Result Performing Organization Address [facility]/ZIP Co de Phone Number [facility] (MD) [address] [place] [address], [facility] [phone] * (ABNORMAL) Hemoglobin and hematocrit (05/27/2025 10:34 PM EDT) Hemoglobin 6.4(LL) 11.2 - 15.7 GM/DL 05/27/2025 10:42 PM EDT [facility] Hematocrit 19.7(L) 34.1 - 44.9 % 05/27/2025 10:42 PM EDT [facility] Blood Venipuncture / Unknown 05/27/2025 10:34 PM EDT 05/27/2025 10:38 PM EDT Vane Corley MD LAB BLOOD ORDERABLES Final Re sult [facility] [address] [phone] * Transfuse RBC (05/27/2025 8:55 PM EDT) Vane Corley MD FS_MODEL_IP_BLOOD TRANSFUSION ORDERABLES Final Result * Transfuse RBC: 1 Units (05/27/2025 8:55 PM EDT) us Vane Corley MD FS_MODEL_IP_BLOOD TRANSFUSION ORDERABLES Final Result * (ABNORMAL) Glucose, Nova Meter (05/27/2025 5:42 PM EDT) POC-GLUCOSE 161(H) 70 - 110 mg/dL 05/27/2025 5:43 PM EDT [facility] Comment: In the event of poor peripheral blood flow, venous or arterial blood should be used due to the potential of erroneous results. Notified Nurse RBV Housekeeping Cleaner [phone] 05/27/2025 5:43 PM EDT [facility] Blood WHOLE BLOOD / Unknown 05/27/2025 5:42 PM EDT 05/27/2025 5:43 PM EDT Narrative [facility] - 05/27/2025 5:43 PM EDT Housekeeping Cleaner ID is - [id number] Vane Corley MD POINT OF CARE TEST ORDERABLES Final Result Performing Organization Address [facility]/ZIP Co de Phone Number [facility] [address] [place] [address], [facility] [phone] * Glucose, Nova Meter (05/27/2025 5:01 PM EDT) Pathologist [facility] POC-GLUCOSE 110 70 - 110 mg/dL 05/27/2025 5:02 PM EDT [facility] Comment: In the event of poor peripheral blood flow, venous or arterial blood should be used due to the potential of erroneous results. Protocols Followed Housekeeping Cleaner [id number] 05/27/2025 5:02 PM EDT [facility] Blood WHOLE BLOOD / Unknown 05/27/2025 5:01 PM EDT 05/27/2025 5:02 PM EDT Narrative [facility] - 05/27/2025 5:02 PM EDT Housekeeping Cleaner ID is - [id number] Vane Corley MD POINT OF CARE TEST ORDERABLES Final Result Performing Organization Address [facility] Co de Phone Number [facility] 1 [place] [address], [facility] [phone] * Type and Screen (05/27/2025 3:48 PM EDT) ABO/Rh O Positive 05/27/2025 3:54 PM EDT [facility] (MD) Antibody Screen Negative 05/27/2025 3:54 PM EDT [facility] (MD) HISTCHK HIST CHECK PERFORMED 05/27/2025 3:54 PM EDT [facility] ([place]) Blood Venipuncture / Unknown 05/27/2025 3:48 PM EDT 05/27/2025 3:54 PM EDT Result Igor Corley MD [facility] TEST ORDERABLE S Final Result Performing Organization Address [facility]/ZIP Co de Phone Number [facility] ([place]) [address] [phone] * Ferritin (05/27/2025 3:47 PM EDT) Ferritin 115.24 4.63 - 204.00 ng/mL 05/27/2025 4:30 PM EDT [facility] Blood Venipuncture / Unknown 05/27/2025 3:47 PM EDT 05/27/2025 3:53 PM EDT us Vane Corley MD LAB BLOOD ORDERABLES Final Re sult Performing Organization Address City/[facility]/ZIP Co de Phone Number [facility] [address] [phone] * (ABNORMAL) Iron and TIBC (05/27/2025 3:47 PM EDT) Iron 74 50 - 170 ug/dL 05/27/2025 4:30 PM EDT [facility] TIBC 203(L) 250 - 435 ug/dL 05/27/2025 4:30 PM EDT [facility] % Saturation 36 % 05/27/2025 4:30 PM EDT [facility] UIBC 129 05/27/2025 4:30 PM EDT [facility] Blood Venipuncture / Unknown 05/27/2025 3:47 PM EDT 05/27/2025 3:53 PM EDT us Vane Corley MD LAB BLOOD ORDERABLES Final Re sult Performing Organization Address City/[facility]/ZIP Co de Phone Number [facility] [address] [phone] * (ABNORMAL) Basic Metabolic Panel (05/27/2025 3:47 PM EDT) Sodium 141 136 - 145 meq/L 05/27/2025 4:30 PM EDT [facility] Potassium 5.9(H) 3.4 - 5.1 meq/L 05/27/2025 4:30 PM EDT [facility] CO2 17(L) 22 - 29 meq/L 05/27/2025 4:30 PM EDT [facility] Chloride 112 98 - 112 meq/L 05/27/2025 4:30 PM EDT [facility] Glucose 123(H) 82 - 115 mg/dL 05/27/2025 4:30 PM EDT [facility] BUN 103.5(H) 9.8 - 20.1 mg/dL 05/27/2025 4:30 PM EDT [facility] Creatinine 3.44(H) 0.57 - 1.11 mg/dL 05/27/2025 4:30 PM EDT [facility] BUN/Creatinine 30(H) 8 - 20 05/27/2025 4:30 PM EDT [facility] Calcium 9.7 8.4 - 10.2 mg/dL 05/27/2025 4:30 PM EDT [facility] Anion Gap 18(H) 4 - 12 05/27/2025 4:30 PM EDT [facility] eGFR (mL/min/1.73m2) 13(L) >=60 mL/min/1.7 3m2 05/27/2025 4:30 PM EDT [facility] Comment:ESTIMATED GFR IS NOT ACCURATE CREATININE CLEARANCE IN PREDICTING GLOMERULAR FILTRATION RATE. ESTIMATED GFR IS NOT APPLICABLE FOR DIALYSIS PATIENTS. Osmolality Calc 315.1 mOsm/kg 4:30 PM EDT [facility] Blood Venipuncture / Unknown 05/27/2025 3:47 PM EDT 05/27/2025 3:53 PM EDT us Vane Corley MD LAB BLOOD ORDERABLES Final Re sult [facility] [address] [phone] * (ABNORMAL) CBC with automated diff (05/27/2025 3:47 PM EDT) WBC 10.4(H) 4.0 - 10.0 K/ L 05/27/2025 3:57 PM EDT [facility] RBC 1.65(L) 3.93 - 5.22 M/ L 05/27/2025 3:57 PM EDT [facility] Hemoglobin 5.3(LL) 11.2 - 15.7 GM/DL 05/27/2025 3:57 PM EDT [facility] Hematocrit 16.9(L) 34.1 - 44.9 % 05/27/2025 3:57 PM EDT [facility] MCV 102(H) 79 - 95 fL 05/27/2025 3:57 PM EDT [facility] MCH 32.1 25.6 - 32.2 pg 05/27/2025 3:57 PM EDT [facility] MCHC 31.4(L) 32.2 - 35.5 GM/DL 05/27/2025 3:57 PM EDT [facility] RDW 17.2(H) 11.7 - 14.4 % 05/27/2025 3:57 PM EDT [facility] Platelets 219 140 - 375 K/CU MM 05/27/2025 3:57 PM EDT [facility] MPV 10.6 9.4 - 12.3 fL 05/27/2025 3:57 PM EDT [facility] % Neutros 72(H) 34 - 71 % 05/27/2025 3:57 PM EDT [facility] % Lymphs 15(L) 19 - 52 % 05/27/2025 3:57 PM EDT [facility] % Monos 12 5 - 13 % 05/27/2025 3:57 PM EDT [facility] % Eos 0(L) 1 - 6 % 05/27/2025 3:57 PM EDT [facility] % Baso 0 0 - 1 % 05/27/2025 3:57 PM EDT [facility] NRBC Absolute <0.01 0 - 0.012 K/ul 05/27/2025 3:57 PM EDT [facility] # Neutros 7.49(H) 1.56 - 6.13 K/ L 05/27/2025 3:57 PM EDT [facility] # Lymphs 1.55 1.18 - 3.74 K/ L 05/27/2025 3:57 PM EDT [facility] # Monos 1.19(H) 0.24 - 0.86 K/ L 05/27/2025 3:57 PM EDT [facility] # Eos 0.04 0.04 - 0.36 K/ L 05/27/2025 3:57 PM EDT [facility] # Baso <0.03 0.01 - 0.08 K/ L 05/27/2025 3:57 PM EDT [facility] % Imm Grans 0.80(H) 0.01 - 0.43 % 05/27/2025 3:57 PM EDT [facility] # IG 0.08(H) 0.00 - 0.03 K/uL 05/27/2025 3:57 PM EDT [facility] Blood Venipuncture / Unknown 05/27/2025 3:47 PM EDT 05/27/2025 3:53 PM EDT Narrative [facility] - 05/27/2025 3:57 PM EDT When CBC w/ Auto Diff is ordered the lab will add a Manual Differential as a quality check at no additional charge if: Lymphocytes greater than seventy five percent with normal or increased WBC Monocytes greater than Fifteen percent Basophil greater than four percent Bands >10% or several immature myeloids are seen on scan Blast? Flag noted Atypical Lymph flag noted us Vane Corley MD LAB BLOOD ORDERABLES Final Re sult [facility] 1 [place] [address], [facility] [phone] * Prepare RBC: 1 Units (05/27/2025 3:23 PM EDT) Issue Date/Time [id number] [facility] ([place]) Product Identification Red Blood Cells [facility] ([place]) Product Code [id number] [facility] ([place]) Status Information TRANSFUSED [facility] ([place]) Unit Number [id number] [facility] (MD) Blood Type 5100 [facility] ([place]) Cross Match Results Compatible [facility] ([place]) us Vane Corley MD FS_MODEL_IP_BLOOD BANK PRODUC T ORDERABLES Final Result [facility] ([place]) [address] [facility] [address] [place] [id number], [facility] [phone] documented in this encounter Visit Diagnoses Diagnosis GI bleeding- Primary Unspecified, hemorrhage of gastrointestinal tract documented in this encounter Admitting Diagnoses Diagnosis GI bleeding Unspecified, hemorrhage of gastrointestinal tract documented in this encounter Administered Medications Inactive Administered Medications - up to 3 most recent administrations Medication Order MAR Action Action Date Dose Rate Site acetaminophen (TYLENOL) tablet 1,000 mg 1,000 mg Every 6 hours PRN, oral, fever greater than or equal to 38C, Starting on 05/27/25 at 1514, Recommended maximum dose of acetaminophen is 4000 mg from all sources in 24 hours arformoteroL (BROVANA) nebulizer solution 15 mcg 15 mcg 2 times daily (RT), nebulization, First dose on 05/27/25 at 2000, Therapeutic Interchange for Formoterol component in [facility] RESPIRATORY THERAPY TREATMENT , What is the respiratory therapy Modality? Small volume Nebulization Given 05/28/2025 8:39 PM EDT 15 mcg Given 05/28/2025 7:49 AM EDT 15 mcg Given 05/27/2025 8:51 PM EDT 15 mcg atorvastatin (LIPITOR) tablet 80 mg 80 mg Every Night, oral, First dose on 05/27/25 at 2100 Given 05/28/2025 8:11 PM EDT 80 mg Given 05/27/2025 8:52 PM EDT 80 mg budesonide (PULMICORT) nebulizer suspension 0.5 mg 0.5 mg 2 times daily (RT), nebulization, First dose on 05/27/25 at 2000, Therapeutic Interchange for Mometasone component in [facility] *RESPIRATORY THERAPY TREATMENT*, What is the respiratory therapy Modality? Small volume Nebulization Given 05/28/2025 8:40 PM EDT 0.5 mg Given 05/28/2025 7:49 AM EDT 0.5 mg Given 05/27/2025 8:50 PM EDT 0.5 mg dextrose 5 % (D5W) 1,000 mL with sodium bicarbonate 125 mEq infusion at 50 mL/hr, intravenous, Continuous, Starting on 05/28/25 at 1200, For 20 hours, 1 lit only Rate/Dose Verify 05/28/2025 1:29 PM EDT 50 mL/hr New Bag 05/28/2025 12:54 PM EDT 50 mL/hr dextrose 50% (D50W) injection 25 g 25 g As needed, intravenous, low blood glucose (specify value in prn comments), less than 41 mg/dL or 41-69 mg/dL and unable to take PO, Starting on 05/27/25 at 1520, Repeat blood glucose every 15 minutes until blood glucose greater than 70 mg/dL. Call Provider if not resolved after 2 treatments Repeat BS in 1 hour, retime for 1 hour after blood sugar greater than 70 mg/dL If less than 41: Repeat Finger stick within 5 minutes with same machine Send serum glucose level: Do not wait on lab to treat dextrose 50% (D50W) injection 25 g 25 g Once (50 mL), intravenous, On 05/27/25 at 1730, For 1 dose Given 05/27/2025 4:57 PM EDT 25 g ferrous gluconate (FERGON) tablet 324 mg 324 mg Daily with breakfast, oral, First dose on 05/28/25 at 0800, * DO NOT CRUSH THIS DOSAGE FORM * Given 05/29/2025 8:42 AM EDT 324 mg Given 05/28/2025 9:50 AM EDT 324 mg glucagon injection 1 mg 1 mg As needed, intraMUSCULAR, low blood glucose (specify value in prn comments), For Patients without IV access and blood glucose 41-69 mg/dL AND unable to take PO OR Less than 41 mg/dL, Starting on 05/27/25 at 1521, Caution: glucagon . Roll patient on their side when administering to prevent aspiration. Call Provider if not resolved after 2 treatments Repeat BS in 1 hour, retime for 1 hour after blood sugar greater than 70 mg/dL glucose chew tab 16 g 16 g As needed, oral, low blood glucose (specify value in prn comments), 41-69 mg/dL, Starting on 05/27/25 at 1520, For Patients who can take oral AND blood glucose 41-69 mg/dL Give 4 Tabs every 15 minutes. Recheck blood glucose every 15 minutes and repeat 15 grams of carbohydrates until blood glucose is above 70 mg/dL. Give Meal or Snack Call Provider if not resolved after 3 treatments Repeat BS in 1 hour, retime for 1 hour after blood sugar greater than 70 mg/dL hydrALAZINE (APRESOLINE) injection 5 mg 5 mg Every 6 hours PRN, intravenous, hypertension (sbp greater than 160), Starting on 05/27/25 at 1515, Hold if SBP < 100 mmHg, DBP < 50 mmHg, or patient is on pressor. Look-alike/Sound-alike medication hydrOXYzine (ATARAX) tablet 10 mg 10 mg Daily, oral, First dose on 05/28/25 at 1030, Look-alike/Sound-alike medication Given 05/29/2025 8: 42 AM EDT 10 mg Given 05/28/2025 9:56 AM EDT 10 mg insulin regular (HUMULIN R,NOVOLIN R) injection 0-12 Units Every 6 hours scheduled, subcutaneous, First dose on 05/27/25 at 1800, Corrective Scale B 0 units for fingerstick blood glucose LESS than 140 mg/dL 2 units subcutaneously once for fingerstick blood glucose [140] - [180] mg/dL 4 units subcutaneously once for fingerstick blood glucose [181] - [220] mg/dL 6 units subcutaneously once for fingerstick blood glucose [221] - [260] mg/dL 8 units subcutaneously once for fingerstick blood glucose [261] - [300] mg/dL 10 units subcutaneously once for fingerstick blood glucose [301] - [350] mg/dL 12 units subcutaneously once for fingerstick blood glucose [351] - [400] mg/dL Notify provider of glucose levels LESS than [70] and GREATER than [400] Given 05/29/2025 11:56 AM EDT 3 Units Left Arm Given 05/29/2025 6:11 AM EDT 2 Units Le ft Arm Given 05/28/2025 12:55 PM EDT 4 Units A bdominal Tissue insulin regular (HUMULIN R,NOVOLIN R) injection 10 Units Once, intravenous, On 05/27/25 at 1730, For 1 dose, If blood sugar is less than 180 between 2980-6561, DO NOT give corrective insulin unless otherwise ordered. Given 05/27/2025 4:59 PM EDT 10 Units Other levothyroxine (SYNTHROID) tablet 75 mcg 75 mcg Every morning on an empty stomach, oral, First dose on 05/28/25 at 0630, ADMINISTER ON AN EMPTY STOMACH Given 05/29/2025 6:12 AM EDT 75 mcg Given 05/28/2025 6:13 AM EDT 75 mcg ondansetron (ZOFRAN) injection 4 mg 4 mg Every 8 hours PRN, intravenous, nausea, vomiting, Starting on 05/27/25 at 1514, Give IV if patient is unable to take orally. 1st line If inadequate response within 60 minutes, proceed to next-line agent for same PRN reason or contact provider if no further options ordered. For IV push, give over 2 - 5 minutes. Given 05/29/2025 2:35 PM EDT 4 mg ondansetron (ZOFRAN-ODT) disintegrating tablet 4 mg 4 mg Every 8 hours PRN, oral, nausea, vomiting, Starting on 05/27/25 at 1514, 1st line. If inadequate response within 60 minutes, proceed to next-line agent for same PRN reason or contact provider if no further options ordered. pantoprazole (PROTONIX) injection 40 mg 40 mg 2 times daily, intravenous, First dose on 05/27/25 at 2100, * DILUTE IN 10 ML NS AND GIVE IV SLOWLY OVER 3 MINUTES * Given 05/29/2025 8:42 AM EDT 40 mg Given 05/28/2025 8:11 PM EDT 40 mg Given 05/28/2025 9:50 AM EDT 40 mg sodium bicarbonate tablet 650 mg 650 mg 2 times daily, oral, First dose on 05/27/25 at 2100 Given 05/29/2025 8:42 AM EDT 650 mg Given 05/28/2025 8:11 PM EDT 650 mg Given 05/28/2025 9:50 AM EDT 650 mg sodium chloride 0.9 % infusion 50 mL/hr Continuous, intravenous, Starting on 05/27/25 at 1600 New Bag 05/27/2025 5:06 PM EDT 50 mL/hr 50 mL/hr sodium chloride 0.9 % infusion 20 mL/hr Once, intravenous, On 05/27/25 at 1600, For 1 dose, Used to prep and flush blood tubing before and in between units of blood. New Bag 05/27/2025 5:05 PM EDT 20 mL/hr 20 mL/hr sodium chloride 0.9 % infusion 20 mL/hr Once, intravenous, On 05/27/25 at 2330, For 1 dose, Used to prep and flush blood tubing before and in between units of blood. New Bag 05/27/2025 11:24 PM EDT 20 mL/hr 20 mL/hr sodium chloride flush 10 mL 10 mL As needed, intravenous, line care, Starting on 05/27/25 at 1512, Every 8 hours and PRN to flush sodium zirconium cyclosilicate (LOKELMA) packet 10 g 10 g Daily (0600), oral, First dose on 05/27/25 at 1730, For 3 days, Administer other oral meds 2 hrs before or 2 hrs after Lokelma. Empty entire contents of pkt(s) into a drinking glass containing about 3 tbsp of water or more, if desired. Stir well & drink immediately. If powder remains in drinking glass, add water, stir, & drink immediately. Repeat until no powder remains to ensure the entire dose is taken. Given 05/28/2025 5:06 AM EDT 10 g Given 05/27/2025 4:57 PM EDT 10 g traZODone (DESYREL) tablet 50 mg 50 mg Every Night, oral, First dose on 05/27/25 at 2100 Given 05/28/2025 9:52 PM EDT 50 mg Given 05/27/2025 8:52 PM EDT 50 mg documented in this encounter Active and Recently Administered Medications Times are shown in EDT. Scheduled Medication Order 05/27/2025 05/28/2025 05/29/2025 arformoteroL (BROVANA) nebulizer solution 15 mcg 15 mcg 2 times daily (RT), nebulization, First dose on 05/27/25 at 2000, Therapeutic Interchange for Formoterol component in [facility] RESPIRATORY THERAPY TREATMENT , What is the respiratory therapy Modality? Small volume Nebulization 2050 (Given - Provider: Geno Pablo) 0749 (Given - Provider: zIaiah Blandon RRT)2038 (Given - Provider: Vijaya Velasco RRT) 0821 (Not Given - Provider: Roxanne Ashley, ROHIT - Reason: Patient/family refused) atorvastatin (LIPITOR) tablet 80 mg 80 mg Every Night, oral, First dose on 05/27/25 at 2100 2051 (Given - Provider: Viri Shin RN) 2010 (Given - Provider: Charley Ibanez RN) budesonide (PULMICORT) nebulizer suspension 0.5 mg 0.5 mg 2 times daily (RT), nebulization, First dose on 05/27/25 at 2000, Therapeutic Interchange for Mometasone component in [facility] *RESPIRATORY THERAPY TREATMENT*, What is the respiratory therapy Modality? Small volume Nebulization 2049 (Given - Provider: Geno Pablo) 0749 (Given - Provider: Izaiah Blandon RRT)2039 (Given - Provider: Vijaya Velasco RRT) 0821 (Not Given - Provider: Roxanne Ashley, ROHIT - Reason: Patient/family refused) cholecalciferol (VITAMIN D3) tablet 50,000 Units 50,000 Units Weekly, oral, First dose on 05/27/25 at 1800 0029 (Not Given - Provider: Viri Shin RN - Reason: Pending Order Clarification) dextrose 50% (D50W) injection 25 g (COMPLETED) 25 g Once (50 mL), intravenous, On 05/27/25 at 1730, For 1 dose 1657 (Given - Provider: Cyndi Mendez RN) ferrous gluconate (FERGON) tablet 324 mg 324 mg Daily with breakfast, oral, First dose on 05/28/25 at 0800, * DO NOT CRUSH THIS DOSAGE FORM * 0950 (Given - Provider: Nicki Morrison) 0842 (Given - Provider: Reece Thompson RN) hydrOXYzine (ATARAX) tablet 10 mg 10 mg Daily, oral, First dose on 05/28/25 at 1030, Look-alike/Sound-alike medication 0956 (Given - Provider: Nicki Morrison) 0842 (Given - Provider: Reece Thompson RN) insulin regular (HUMULIN R,NOVOLIN R) injection 0-12 Units Every 6 hours scheduled, subcutaneous, First dose on 05/27/25 at 1800, Corrective Scale B 0 units for fingerstick blood glucose LESS than 140 mg/dL 2 units subcutaneously once for fingerstick blood glucose [140] - [180] mg/dL 4 units subcutaneously once for fingerstick blood glucose [181] - [220] mg/dL 6 units subcutaneously once for fingerstick blood glucose [221] - [260] mg/dL 8 units subcutaneously once for fingerstick blood glucose [261] - [300] mg/dL 10 units subcutaneously once for fingerstick blood glucose [301] - [350] mg/dL 12 units subcutaneously once for fingerstick blood glucose [351] - [400] mg/dL Notify provider of glucose levels LESS than [70] and GREATER than [400] 1705 (Not Given - Provider: Cyndi Mendez RN - Reason: Order parameters not met) 0028 (Not Given - Provider: Viri Shin RN - Reason: Order parameters not met)0613 (Not Given - Provider: Viri Shin RN - Reason: Order parameters not met)1255 (Given - Provider: Nicki Morrison)1852 (Not Given - Provider: Nicki Morrison - Reason: Order parameters not met)2332 (Not Given - Provider: Charley Ibanez RN - Reason: Order parameters not met) 0611 (Given - Provider: Charley Ibanez RN)1156 (Given - Provider: Bonita White, CHARISSE) insulin regular (HUMULIN R,NOVOLIN R) injection (COMPLETED) 10 Units Once, intravenous, On 05/27/25 at 1730, For 1 dose, If blood sugar is less than 180 between 9749-4878, DO NOT give corrective insulin unless otherwise ordered. 1659 (Given - Provider: Cyndi Mendez RN) levothyroxine (SYNTHROID) tablet 75 mcg 75 mcg Every morning on an empty stomach, oral, First dose on 05/28/25 at 0630, ADMINISTER ON AN EMPTY STOMACH 0613 (Given - Provider: Viri Shin RN) 0612 (Given - Provider: Charley Ibanez RN) pantoprazole (PROTONIX) injection 40 mg 40 mg 2 times daily, intravenous, First dose on 05/27/25 at 2100, * DILUTE IN 10 ML NS AND GIVE IV SLOWLY OVER 3 MINUTES * 2051 (Given - Provider: Viri Shin RN) 0950 (Given - Provider: Nicki Morrison)2010 (Given - Provider: Charley Ibanez RN) 0842 (Given - Provider: Reece Thompson, CHARISSE) sodium bicarbonate tablet 650 mg 650 mg 2 times daily, oral, First dose on 05/27/25 at 2100 2051 (Given - Provider: Viri Shin RN) 0950 (Given - Provider: Nicki Morrison)2010 (Given - Provider: Charley Ibanez RN) 0842 (Given - Provider: Reece Thompson, CHARISSE) sodium chloride 0.9 % infusion (COMPLETED)(Linked Group 1) 20 mL/hr Once, intravenous, On 05/27/25 at 1600, For 1 dose, Used to prep and flush blood tubing before and in between units of blood. 1705 (New Bag - Provider: Cyndi Mendez RN) sodium chloride 0.9 % infusion (COMPLETED)(Linked Group 2) 20 mL/hr Once, intravenous, On 05/27/25 at 2330, For 1 dose, Used to prep and flush blood tubing before and in between units of blood. 2324 (New Bag - Provider: Viri Shin RN) sodium zirconium cyclosilicate (LOKELMA) packet 10 g 10 g Daily (0600), oral, First dose on 05/27/25 at 1730, For 3 days, Administer other oral meds 2 hrs before or 2 hrs after Lokelma. Empty entire contents of pkt(s) into a drinking glass containing about 3 tbsp of water or more, if desired. Stir well & drink immediately. If powder remains in drinking glass, add water, stir, & drink immediately. Repeat until no powder remains to ensure the entire dose is taken. 1657 (Given - Provider: Cyndi Mendez RN) 0506 (Given - Provider: Viri Shin RN) 0707 (Not Given - Provider: Charley Ibanez RN - Reason: Other (with Comment) - Comment: potassium 4.6) traZODone (DESYREL) tablet 50 mg 50 mg Every Night, oral, First dose on 05/27/25 at 2100 205 (Given - Provider: Viri Shin RN) 215 (Given - Provider: Charley Ibanez RN) Continuous Medication Order 05/27/2025 05/28/2025 05/29/2025 dextrose 5 % (D5W) 1,000 mL with sodium bicarbonate 125 mEq infusion at 50 mL/hr, intravenous, Continuous, Starting on 05/28/25 at 1200, For 20 hours, 1 lit only 1254 (New Bag - Provider: Nicki Morrison)1329 (Rate/Dose Verify - Provider: Nicki Morrison) sodium chloride 0.9 % infusion (CANCELED) 50 mL/hr Continuous, intravenous, Starting on 05/27/25 at 1600 1706 (New Bag - Provider: Cyndi Mendez RN) PRN Medication Order 05/27/2025 05/28/2025 05/29/2025 acetaminophen (TYLENOL) tablet 1,000 mg 1,000 mg Every 6 hours PRN, oral, fever greater than or equal to 38C, Starting on 05/27/25 at 1514, Recommended maximum dose of acetaminophen is 4000 mg from all sources in 24 hours dextrose 50% (D50W) injection 25 g 25 g As needed, intravenous, low blood glucose (specify value in prn comments), less than 41 mg/dL or 41-69 mg/dL and unable to take PO, Starting on 05/27/25 at 1520, Repeat blood glucose every 15 minutes until blood glucose greater than 70 mg/dL. Call Provider if not resolved after 2 treatments Repeat BS in 1 hour, retime for 1 hour after blood sugar greater than 70 mg/dL If less than 41: Repeat Finger stick within 5 minutes with same machine Send serum glucose level: Do not wait on lab to treat glucagon injection 1 mg 1 mg As needed, intraMUSCULAR, low blood glucose (specify value in prn comments), For Patients without IV access and blood glucose 41-69 mg/dL AND unable to take PO OR Less than 41 mg/dL, Starting on 05/27/25 at 1521, Caution: glucagon . Roll patient on their side when administering to prevent aspiration. Call Provider if not resolved after 2 treatments Repeat BS in 1 hour, retime for 1 hour after blood sugar greater than 70 mg/dL glucose chew tab 16 g 16 g As needed, oral, low blood glucose (specify value in prn comments), 41-69 mg/dL, Starting on 05/27/25 at 1520, For Patients who can take oral AND blood glucose 41-69 mg/dL Give 4 Tabs every 15 minutes. Recheck blood glucose every 15 minutes and repeat 15 grams of carbohydrates until blood glucose is above 70 mg/dL. Give Meal or Snack Call Provider if not resolved after 3 treatments Repeat BS in 1 hour, retime for 1 hour after blood sugar greater than 70 mg/dL hydrALAZINE (APRESOLINE) injection 5 mg 5 mg Every 6 hours PRN, intravenous, hypertension (sbp greater than 160), Starting on 05/27/25 at 1515, Hold if SBP < 100 mmHg, DBP < 50 mmHg, or patient is on pressor. Look-alike/Sound-alike medication ondansetron (ZOFRAN) injection 4 mg(Linked Group 3) 4 mg Every 8 hours PRN, intravenous, nausea, vomiting, Starting on 05/27/25 at 1514, Give IV if patient is unable to take orally. 1st line If inadequate response within 60 minutes, proceed to next-line agent for same PRN reason or contact provider if no further options ordered. For IV push, give over 2 - 5 minutes. 1435 (Given - Provid er: Bonita White RN) ondansetron (ZOFRAN-ODT) disintegrating tablet 4 mg(Linked Group 3) 4 mg Every 8 hours PRN, oral, nausea, vomiting, Starting on 05/27/25 at 1514, 1st line. If inadequate response within 60 minutes, proceed to next-line agent for same PRN reason or contact provider if no further options ordered. 1435 (See Alternativ e - Provider: Bonita White RN) sodium chloride flush 10 mL(Linked Group 4) 10 mL As needed, intravenous, line care, Starting on 05/27/25 at 1512, Every 8 hours and PRN to flush Linked Groups Order Group 1: Prepare RBC: 1 Units (COMPLETED) Routine, Prepare 1 Units And Transfuse RBC: 1 Units (COMPLETED) Routine, Transfuse 1 Units And sodium chloride 0.9 % infusion (COMPLETED)Jump to med 20 mL/hr Once, intravenous, On 05/27/25 at 1600, For 1 dose, Used to prep and flush blood tubing before and in between units of blood. Group 2: Prepare RBC: 1 Units (COMPLETED) Routine, Prepare 1 Units And Transfuse RBC: 1 Units (COMPLETED) Routine, Transfuse 1 Units And sodium chloride 0.9 % infusion (COMPLETED)Jump to med 20 mL/hr Once, intravenous, On 05/27/25 at 2330, For 1 dose, Used to prep and flush blood tubing before and in between units of blood. Group 3: ondansetron (ZOFRAN-ODT) disintegrating tablet 4 mgJump to med 4 mg Every 8 hours PRN, oral, nausea, vomiting, Starting on 05/27/25 at 1514, 1st line. If inadequate response within 60 minutes, proceed to next-line agent for same PRN reason or contact provider if no further options ordered. Or ondansetron (ZOFRAN) injection 4 mgJump to med 4 mg Every 8 hours PRN, intravenous, nausea, vomiting, Starting on 05/27/25 at 1514, Give IV if patient is unable to take orally. 1st line If inadequate response within 60 minutes, proceed to next-line agent for same PRN reason or contact provider if no further options ordered. For IV push, give over 2 - 5 minutes. 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
--- OUTSIDE RECORDS SUMMARY | 2025-07-06 13:17 | XMS_ITS | Patient Health Record ---
Author Organization [email or web address] [facility] Sonia stone Address [address] [place] [address] Phone [phone] Care Team Providers Care Tabber Name Role Phone Josue Trejo Unavailable [phone] Migration, Provider Unavailable Unavailable Reason For Referral No Information Medications Medication SIG (Take, Route, Frequency, Duration) Notes Start Date End Date Status DULoxetine HCl 30 MG Capsule Delayed Release Particles Oral Active Amoxicillin-Pot Clavulanate 500-125 MG Tablet Oral Active Toujeo SoloStar 300 UNIT/ML Solution Pen-injector Subcutaneous Active FLUZONE HIGH-DOSE 2019-20 (PF) 180 MCG/0.5 ML INTRAMUSCULAR SYRINGE *Reorder from [email or web address] for eRx and Interaction Alerts* Active Anoro Ellipta 62.5-25 MCG/INH Aerosol Powder Breath Activated Inhalation *Pick strength-form from [email or web address] for eRX* Active Ventolin HFA 108 (90 Base) MCG/ACT Aerosol Solution Inhalation Active ULTRA-FINE SHORT PEN NEEDLE 31 gauge x 5/16 NEEDLE, DISPOSABLE MISCELLANEOUS *Reorder from [email or web address] for eRx and Interaction Alerts* Active Nystatin 441683 UNIT/GM Powder External Active Nitroglycerin 0.4 MG Tablet Sublingual Sublingual Active Cephalexin 500 MG Capsule Oral Active Atorvastatin Calcium 80 MG Tablet Oral Active Levothyroxine Sodium 75 MCG Tablet Oral Active NOVOLOG FLEXPEN U-100 INSULIN ASPART 100 UNIT/ML (3 ML) SUBCUTANEOUS *Reorder from [email or web address] for eRx and Interaction Alerts* Active GaviLyte-G 236-22.74-6.74 -5.86 gram Solution Reconstituted Oral *Pick strength-form from [email or web address] for eRX* Active traZODone HCl 50 MG [...] PROPIONATE 50 MCG/ACTUATION NASAL SPRAY,SUSPENSION *Reorder from [email or web address] for eRx and Interaction Alerts* Active Pantoprazole Sodium 40 MG Tablet Delayed Release Oral Active VITAMIN D2 1,250 MCG (50,000 UNIT) CAPSULE *Reorder from [employer] for eRx and Interaction Alerts* Active Social History Social History Additional Details Category Social Info Options Details Migrated Social History Migrated Social History Tobacco Years: Never smoker 06/26/2020 Problems Problem Type SNOMED Code ICD Code Onset Dates Problem Status W/U Status Risk Notes Problem History of suspected exposure to biological agent (29911126574971 ) Encounter for observation for suspected exposure to other biological agents ruled out (Z03.818) 0 Active confirmed Encounters Encounter Location Date Provider Diagnosis [facility] [address] [place] [address] 03/25/2025 Provider Migration [facility] [address] [place] [address] 03/26/2025 Provider Migration Plan Of Treatment No Information
--- OUTSIDE RECORDS SUMMARY | 2025-07-06 13:17 | XMS_ITS | Data Portability ---
Author Organization [place] - [facility], [facility], [facility], [facility] Address [address] [place] [address] Assessment No assessment recorded. Plan of Treatment Reminders Order Date Submit Date Provider Last Modified By Organization Details Last Modified Time Details Appointments None recorded. Lab SARS CoV 2 RNA (COVID-19), QL, financial associate-PCR, respiratory specimen 2019 020 [facility], [address] [place] [address], [phone], 1 05:02:24 Referral None recorded. Procedures None [...] Trejo NP, [facility], 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 Client has the potential of being [...] pain, or diarrhea. Lyssa Trejo, ANGELA, A [address] [place] [address], [phone], [facility] - [facility], [facility] 03/10/2020 16:30:59 OBGyn Episode No OBEpisode recorded.
--- OUTSIDE RECORDS SUMMARY | 2025-07-06 13:18 | XMS_ITS | Encounter Summary ---
Author Organization [employer] ([place], [place], [place], [place], [place]) Address [address] [place] [address] Care Team Providers Care Meter Reader Inspector Name Role Phone Anand Noble MD Primary [...] on filedocumented in this encounter Care Teams Meter Reader Inspector Relationship Specialty Start Date End Date Anand Noble MD [address] [facility] [place] [phone] PCP - General Family Medicine 07/29/23 documented as of this encounter
--- OUTSIDE RECORDS SUMMARY | 2025-07-06 13:18 | XMS_ITS | Patient Health Record ---
Author Organization [facility] Billing Info Address [address] [place] [id number] Support Name Relationship Address Phone Lyssa Higgins Guarantor Unknown [phone] Reason For Referral No Information Plan Of Treatment No Information Insurance Providers Payer Name Payer Address Payer Phone Subscriber Number Group Number Insured Name Patient Relationship to Insured Coverage Start Date Coverage End Date [employer] O MEDICARE [address] [address] [place], [place] [id number] Lyssa Higgins Self - patient is the insured 3
--- OUTSIDE RECORDS SUMMARY | 2025-07-06 13:18 | XMS_ITS | Referral Summary ---
Author Organization [employer] ([place], [place], [place], [place], [place]) Address [address] [place] [address] Care Team Providers Care Plant Attendant Name Role Phone Anand Noble MD Primary Care Provider Encounters Date Type Department Care Team Description 05/27/2025 3:02 PM EDT - 05/29/2025 4:43 PM EDT Hospital Encounter [address] Medical Telemetry Unit 1 [place] [address] Alan Vargas DO Elsallabi, Osama, MD Discharge Disposition: Retirement Facility 05/27/2025 Travel from Last 3 Months [...] meals Sliding Scale. Use as directed. Active acetaminophen (TYLENOL) 325 MG tablet Take 2 tablets (650 mg total) by mouth daily. Active albuterol 90 mcg/actuation inhaler Inhale 2 puffs by mouth every 4 (four) hours as needed for wheezing. Active aspirin 81 MG chewable tablet Take 1 tablet (81 mg total) by mouth daily. Active budesonide-formot [place] (SYMBICORT) 160-4.5 mcg/actuation inhaler Inhale 2 puffs [...] by mouth 3 (three) times daily. Active ipratropium-albut [place] (DUO-NEB) 0.5 mg-3 mg(2.5 mg base)/3 mL [...] by mouth daily as needed (Constipation). Active sennosides-docusa te sodium 8.6-50 mg per tablet Take 1 tablet by mouth 2 (two) times daily as needed for constipation. Active propylene glycoL (Systane Balance) 0.6 % drop Administer 1 drop into both eyes 4 (four) times daily. Active pantoprazole (PROTONIX) 40 MG tablet Take 1 tablet (40 mg total) by mouth Daily (0600) for 30 days. 30 tablet 05/29/20 25 025 Active Problems Problem Noted Date Diagnosed Date [...] Date Juan rded Speak language other than Ivorian at home Not on file 09/01/2023 Want [...] of10 resultswithin the time period is included. [facility] POC-GLUCOSE 183(H) 70 - 110 mg/dL 05/29/2025 10:47 AM EDT [facility] Comment: In the event of poor peripheral blood flow, venous or arterial blood should be used due to the potential of erroneous results. Notified Nurse RBV Web Application Tester [id number] 05/29/2025 10:47 AM EDT [facility] Blood WHOLE BLOOD / Unknown 05/29/2025 10:46 AM EDT 05/29/2025 10:47 AM EDT Narrative [facility] - 05/29/2025 10:47 AM EDT Web Application Tester ID is - [id number] Vane Corley MD POINT OF CARE TEST ORDERABLES Final Result [facility] 1 [place] [address], [facility] [phone] * (ABNORMAL) CBC with Automated Diff (05/29/2025 2:50 AM EDT) Only the most recent of2 resultswithin the time period is included. WBC 8.1 4.0 - 10.0 K/ L 05/29/2025 3:24 AM EDT [facility] RBC 2.66(L) 3.93 - 5.22 M/ L 05/29/2025 3:24 AM EDT [facility] Hemoglobin 8.0(L) 11.2 - 15.7 GM/DL 05/29/2025 3:24 AM EDT [facility] Hematocrit 25.6(L) 34.1 - 44.9 % 05/29/2025 3:24 AM EDT [facility] MCV 96(H) 79 - 95 fL 05/29/2025 3:24 AM EDT [facility] MCH 30.1 25.6 - 32.2 pg 05/29/2025 3:24 AM EDT [facility] MCHC 31.3(L) 32.2 - 35.5 GM/DL 05/29/2025 3:24 AM EDT [facility] RDW 18.7(H) 11.7 - 14.4 % 05/29/2025 3:24 AM EDT [facility] Platelets 215 140 - 375 K/CU MM 05/29/2025 3:24 AM EDT [facility] MPV 10.5 9.4 - 12.3 fL 05/29/2025 3:24 AM EDT [facility] % Neutros 71 34 - 71 % 05/29/2025 3:24 AM EDT [facility] % Lymphs 15(L) 19 - 52 % 05/29/2025 3:24 AM EDT [facility] % Monos 12 5 - 13 % 05/29/2025 3:24 AM EDT [facility] % Eos 2 1 - 6 % 05/29/2025 3:24 AM EDT [facility] % Baso 0 0 - 1 % 05/29/2025 3:24 AM EDT [facility] NRBC Absolute <0.01 0 - 0.012 K/ul 05/29/2025 3:24 AM EDT [facility] # Neutros 5.67 1.56 - 6.13 K/ L 05/29/2025 3:24 AM EDT [facility] # Lymphs 1.20 1.18 - 3.74 K/ L 05/29/2025 3:24 AM EDT [facility] # Monos 0.99(H) 0.24 - 0.86 K/ L 05/29/2025 3:24 AM EDT [facility] # Eos 0.13 0.04 - 0.36 K/ L 05/29/2025 3:24 AM EDT [facility] # Baso <0.03 0.01 - 0.08 K/ L 05/29/2025 3:24 AM EDT [facility] % Imm Grans 0.50(H) 0.01 - 0.43 % 05/29/2025 3:24 AM EDT [facility] # IG 0.04(H) 0.00 - 0.03 K/uL 05/29/2025 3:24 AM EDT [facility] Blood Venipuncture / Unknown 05/29/2025 2:50 AM EDT 05/29/2025 3:17 AM EDT Narrative [facility] - 05/29/2025 3:24 AM [...] MD LAB BLOOD ORDERABLES Final Re sult [facility] [address] [phone] * (ABNORMAL) Basic Metabolic Panel (05/29/2025 2:50 AM EDT) Only the most recent of3 resultswithin the time period is included. Sodium 143 136 - 145 meq/L 05/29/2025 3:48 AM EDT [facility] Potassium 4.6 3.4 - 5.1 meq/L 05/29/2025 3:48 AM EDT [facility] CO2 20(L) 22 - 29 meq/L 05/29/2025 3:48 AM EDT [facility] Chloride 113(H) 98 - 112 meq/L 05/29/2025 3:48 AM EDT [facility] Glucose 134(H) 82 - 115 mg/dL 05/29/2025 3:48 AM EDT [facility] BUN 83.4(H) 9.8 - 20.1 mg/dL 05/29/2025 3:48 AM EDT [facility] Creatinine 3.13(H) 0.57 - 1.11 mg/dL 05/29/2025 3:48 AM EDT [facility] BUN/Creatinine 27(H) 8 - 20 05/29/2025 3:48 AM EDT [facility] Calcium 8.7 8.4 - 10.2 mg/dL 05/29/2025 3:48 AM EDT [facility] Anion Gap 15(H) 4 - 12 05/29/2025 3:48 AM EDT [facility] eGFR (mL/min/1.73m2) 14(L) >=60 mL/min/1.7 3m2 05/29/2025 3:48 AM EDT [facility] Comment:ESTIMATED GFR IS NOT ACCURATE CREATININE CLEARANCE IN PREDICTING GLOMERULAR FILTRATION RATE. ESTIMATED GFR IS NOT APPLICABLE FOR DIALYSIS PATIENTS. Osmolality Calc 312.2 mOsm/kg 3:48 AM EDT [facility] Blood Venipuncture / Unknown 05/29/2025 2:50 AM EDT 05/29/2025 3:18 AM EDT us Vane Corley MD LAB BLOOD ORDERABLES Final Re sult [facility] [address] [phone] * Urea Nitrogen, random urine (05/28/2025 1:19 PM EDT) Urea Nitrogen, Ur 562 mg/dL 05/28/2025 1:45 PM EDT [facility] Comment: Reference Range not established Reference range not established Urine 05/28/2025 1:19 PM EDT 05/28/2025 1:21 PM EDT Pa Santos MD URINE ORDERABLES Final Result Performing Organization Address [facility] Co de Phone Number [facility] [address] [phone] * (ABNORMAL) Protein / creatinine ratio, urine (05/28/2025 1:19 PM EDT) Creatinine, Ur 39.00(L) 47.00 - 110.00 mg/dL 05/28/2025 1:45 PM EDT [facility] Protein Creatinine Ratio 1.95(H) <=0.20 05/28/2025 1:45 PM EDT [facility] Protein, Urine 76(H) 1 - 14 mg/dL 05/28/2025 1:45 PM EDT [facility] Urine 05/28/2025 1:19 PM EDT 05/28/2025 1:21 PM EDT Pa Santos MD URINE ORDERABLES Final Result [facility] [address] [phone] * Sodium, random urine (05/28/2025 1:19 PM EDT) Sodium Urine 56 See Comment meq/L 05/28/2025 1:45 PM EDT [facility] Comment:Reference Range not established Urine 05/28/2025 1:19 PM EDT 05/28/2025 1:21 PM EDT Pa Santos MD URINE ORDERABLES Final Result [facility] 1 [place] [address], [facility] [phone] * (ABNORMAL) Urinalysis w/Microscopic (05/28/2025 1:19 PM EDT) Color, UA Light Yellow 05/28/2025 1:29 PM EDT [facility] Clarity, UA Clear Clear 05/28/2025 1:29 PM EDT [facility] Specific Seymour, UA 1.012 1.005 - 1.030 05/28/2025 1:29 PM EDT [facility] pH, UA 5.5(L) 6.0 - 8.0 05/28/2025 1:29 PM EDT [facility] Leukocytes, UA Negative Negative 05/28/2025 1:29 PM EDT [facility] Nitrite, UA Negative Negative 05/28/2025 1:29 PM EDT [facility] Protein, UA 1+(A) Negative 05/28/2025 1:29 PM EDT [facility] Glucose, UA 4+(A) Normal 05/28/2025 1:29 PM EDT [facility] Ketones, UA Negative Negative 05/28/2025 1:29 PM EDT [facility] Urobilinogen, UA Normal Normal 05/28/2025 1:29 PM EDT [facility] Bilirubin, UA Negative Negative 05/28/2025 1:29 PM EDT [facility] Blood, UA Negative Negative 05/28/2025 1:29 PM EDT [facility] RBC, UA 0-2(A) None Seen /HPF 05/28/2025 1:29 PM EDT [facility] WBC, UA 0-2(A) None Seen /HPF 05/28/2025 1:29 PM EDT [facility] Bacteria, UA None Seen None Seen, Trace 05/28/2025 1:29 PM EDT [facility] SQUAMOUS EPITHELIAL 0-2(A) None Seen /HPF 05/28/2025 1:29 PM EDT [facility] Specimen Source Urine, Sterile Collection 05/28/2025 1:29 PM EDT [facility] Urine STERILE URINE SPECIMEN CONTAINER / Unknown 05/28/2025 1:19 PM EDT 05/28/2025 1:24 PM EDT Pa Santos MD URINE ORDERABLES Final Result [facility] [address] [phone] * (ABNORMAL) CBC - Hemogram (SJ-BKR) (05/28/2025 6:26 AM EDT) WBC 7.8 4.0 - 10.0 K/ L 05/28/2025 6:43 AM EDT [facility] RBC 2.59(L) 3.93 - 5.22 M/ L 05/28/2025 6:43 AM EDT [facility] Hemoglobin 7.9(L) 11.2 - 15.7 GM/DL 05/28/2025 6:43 AM EDT [facility] Hematocrit 24.7(L) 34.1 - 44.9 % 05/28/2025 6:43 AM EDT [facility] MCV 95 79 - 95 fL 05/28/2025 6:43 AM EDT [facility] MCH 30.5 25.6 - 32.2 pg 05/28/2025 6:43 AM EDT [facility] MCHC 32.0(L) 32.2 - 35.5 GM/DL 05/28/2025 6:43 AM EDT [facility] RDW 18.3(H) 11.7 - 14.4 % 05/28/2025 6:43 AM EDT [facility] Platelets 193 140 - 375 K/CU MM 05/28/2025 6:43 AM EDT [facility] MPV 10.7 9.4 - 12.3 fL 05/28/2025 6:43 AM EDT [facility] Blood Venipuncture / Unknown 05/28/2025 6:26 AM EDT 05/28/2025 6:33 AM EDT us Vane Corley MD LAB BLOOD ORDERABLES Final Re sult Performing Organization Address [facility] Co de Phone Number [facility] [address] [phone] * (ABNORMAL) Uric acid (05/28/2025 6:26 AM EDT) Uric Acid 6.7(H) 2.5 - 6.2 mg/dL 05/28/2025 12:09 PM EDT [facility] Blood Venipuncture / Unknown 05/28/2025 6:26 AM EDT 05/28/2025 6:33 AM EDT Pa Santos MD LAB BLOOD ORDERABLES Final Resu lt Performing Organization Address [facility] Co de Phone Number [facility] [address] [phone] * Magnesium (05/28/2025 6:26 AM EDT) Magnesium 1.8 1.6 - 2.6 mg/dL 05/28/2025 6:38 PM EDT [facility] Blood Venipuncture / Unknown 05/28/2025 6:26 AM EDT 05/28/2025 6:33 AM EDT us Vane Corley MD LAB BLOOD ORDERABLES Final Re sult Performing Organization Address [facility] Co de Phone Number [facility] [address] [phone] * Lactate dehydrogenase (LDH) (05/28/2025 6:26 AM EDT) LDH 165 125 - 220 U/L 05/28/2025 12:09 PM EDT [facility] Blood Venipuncture / Unknown 05/28/2025 6:26 AM EDT 05/28/2025 6:33 AM EDT Pa Santos MD LAB BLOOD ORDERABLES Final Resu lt Performing Organization Address [facility] Co de Phone Number [facility] [address] [phone] * Creatine Kinase (CK) (05/28/2025 6:26 AM EDT) Total CK 41 29 - 168 U/L 05/28/2025 12:09 PM EDT [facility] Blood Venipuncture / Unknown 05/28/2025 6:26 AM EDT 05/28/2025 6:33 AM EDT Pa Santos MD LAB BLOOD ORDERABLES Final Resu lt Performing Organization Address City/[facility] Co de Phone Number [facility] [address] [phone] * Transfuse RBC (05/28/2025 5:09 AM EDT) Only the most recent of2 resultswithin the time period is included. Result [facility] Karlo Hercules PA-C FS_MODEL_IP_BLOOD TRANSFUSION ORDERABLES Final Result * Prepare RBC: 1 Units (05/27/2025 10:54 PM EDT) Only the most recent of2 resultswithin the time period is included. Issue Date/Time [id number] [facility] ([place]) Product Identification Red Blood Cells [facility] ([place]) Product Code [id number] [facility] ([place]) Status Information TRANSFUSED [facility] ([place]) Unit Number [id number] [facility] ([place]) Blood Type 5100 [facility] ([place]) Cross Match Results Compatible [facility] ([place]) us Karlo Hercules PA-C FS_MODEL_IP_BLOOD BANK PRODUCT ORDERABLES Final Result Performing Organization Address [facility]/ZIP Co de Phone Number [facility] ([place]) [address] [place] [address], [facility] [phone] * (ABNORMAL) Hemoglobin and hematocrit (05/27/2025 10:34 PM EDT) Hemoglobin 6.4(LL) 11.2 - 15.7 GM/DL 05/27/2025 10:42 PM EDT [facility] Hematocrit 19.7(L) 34.1 - 44.9 % 05/27/2025 10:42 PM EDT [facility] Blood Venipuncture / Unknown 05/27/2025 10:34 PM EDT 05/27/2025 10:38 PM EDT us Vane Corley MD LAB BLOOD ORDERABLES Final Re sult Performing Organization Address [facility]/ZIP Co de Phone Number [facility] 1 [place] [address], [facility] [phone] * Type and Screen (05/27/2025 3:48 PM EDT) ABO/Rh O Positive 05/27/2025 3:54 PM EDT [facility] BLOOD [facility] ([place]) Antibody Screen Negative 05/27/2025 3:54 PM EDT [facility] ([place]) HISTCHK HIST CHECK PERFORMED 05/27/2025 3:54 PM EDT [facility] ([place]) Blood Venipuncture / Unknown 05/27/2025 3:48 PM EDT 05/27/2025 3:54 PM EDT us Vane Corley MD [facility] BLOOD BANK TEST ORDERABLE S Final Result Performing Organization Address [facility]/ZIP Co de Phone Number [facility] ([place]) [address] [place] [address], [facility] [phone] * (ABNORMAL) Iron and TIBC (05/27/2025 3:47 PM EDT) Iron 74 50 - 170 ug/dL 05/27/2025 4:30 PM EDT [facility] TIBC 203(L) 250 - 435 ug/dL 05/27/2025 4:30 PM EDT [facility] % Saturation 36 % 05/27/2025 4:30 PM EDT [facility] UIBC 129 05/27/2025 4:30 PM EDT [facility] Blood Venipuncture / Unknown 05/27/2025 3:47 PM EDT 05/27/2025 3:53 PM EDT Vane Corley MD LAB BLOOD ORDERABLES Final Re sult Performing Organization Address [facility]/ZIP Co de Phone Number [facility] [address] [phone] * Ferritin (05/27/2025 3:47 PM EDT) Ferritin 115.24 4.63 - 204.00 ng/mL 05/27/2025 4:30 PM EDT [facility] Blood Venipuncture / Unknown 05/27/2025 3:47 PM EDT 05/27/2025 3:53 PM EDT Vane Corley MD LAB BLOOD ORDERABLES Final Re sult [facility] [address] [phone] from Last 3 Months Insurance MEDICARE PPO Advance Directives For more information, please contact: [phone] * Full Code (Latest Code Status on File) Date Activated Date Inactivated Comments 05/27/2025 2:15 PM 05/29/2025 5:45 PM * Full Code Date Activated Date Inactivated Comments 07/25/2023 6:51 AM 08/24/2023 6:19 PM Care Teams Plant Attendant Relationship Specialty Start Date End Date Anand Noble MD [address] [place] [phone] PCP - General Family Medicine 07/29/23
--- OUTSIDE RECORDS SUMMARY | 2025-07-06 13:19 | XMS_ITS | Clinical Summary ---
Author Organization [employer] ([place], [place], [place], [place], [place]) Address [address] [place] [address] Care Team Providers Care Clay Artist Name Role Phone Anand Noble MD Primary [...] - 05/29/2025 4:43 PM EDT Hospital Encounter [address] Medical Telemetry Unit 1 [place] [address] Alan Vargas DO Elsallabi, Osama, MD Discharge Disposition: [facility] 05/27/2025 Travel from Last 3 Months [...] Additional history exists Influenza Vaccine (#1) 2025 3, 05/09/2022, 06/04/2021, Additional history exists Diabetic Kidney [...] PM EDT NOVA GLUCOSE POC Routine 05/28/2025 3:3 7 PM EDT UREA NITROGEN, RANDOM URINE Routine [...] of10 resultswithin the time period is included. [facility] POC-GLUCOSE 183(H) 70 - 110 mg/dL 05/29/2025 10:47 AM EDT [facility] Comment: In the event of poor peripheral blood flow, venous or arterial blood should be used due to the potential of erroneous results. Notified Nurse [facility] Public Util[employer] Sales Representative [phone] 05/29/2025 10:47 AM EDT [facility] Blood WHOLE BLOOD / Unknown 05/29/2025 10:46 AM EDT 05/29/2025 10:47 AM EDT Narrative [facility] - 05/29/2025 10:47 AM EDT Public Utilities Sales Representative ID is - [id number] Vane Corley MD POINT OF CARE TEST ORDERABLES Final Result [facility] [address] [phone] * (ABNORMAL) CBC with Automated Diff (05/29/2025 2:50 AM EDT) Only the most recent of2 resultswithin the time period is included. [facility] WBC 8.1 4.0 - 10.0 K/ L 05/29/2025 3:24 AM EDT [facility] RBC 2.66(L) 3.93 - 5.22 M/ L 05/29/2025 3:24 AM EDT [facility] Hemoglobin 8.0(L) 11.2 - 15.7 GM/DL 05/29/2025 3:24 AM EDT [facility] Hematocrit 25.6(L) 34.1 - 44.9 % 05/29/2025 3:24 AM EDT [facility] MCV 96(H) 79 - 95 fL 05/29/2025 3:24 AM EDT [facility] MCH 30.1 25.6 - 32.2 pg 05/29/2025 3:24 AM EDT [facility] MCHC 31.3(L) 32.2 - 35.5 GM/DL 05/29/2025 3:24 AM EDT [facility] RDW 18.7(H) 11.7 - 14.4 % 05/29/2025 3:24 AM EDT [facility] Platelets 215 140 - 375 K/CU MM 05/29/2025 3:24 AM EDT [facility] MPV 10.5 9.4 - 12.3 fL 05/29/2025 3:24 AM EDT [facility] % Neutros 71 34 - 71 % 05/29/2025 3:24 AM EDT [facility] % Lymphs 15(L) 19 - 52 % 05/29/2025 3:24 AM EDT [facility] % Monos 12 5 - 13 % 05/29/2025 3:24 AM EDT [facility] % Eos 2 1 - 6 % 05/29/2025 3:24 AM EDT [facility] % Baso 0 0 - 1 % 05/29/2025 3:24 AM EDT [facility] NRBC Absolute <0.01 0 - 0.012 K/ul 05/29/2025 3:24 AM EDT [facility] # Neutros 5.67 1.56 - 6.13 K/ L 05/29/2025 3:24 AM EDT [facility] # Lymphs 1.20 1.18 - 3.74 K/ L 05/29/2025 3:24 AM EDT [facility] # Monos 0.99(H) 0.24 - 0.86 K/ L 05/29/2025 3:24 AM EDT [facility] # Eos 0.13 0.04 - 0.36 K/ L 05/29/2025 3:24 AM EDT [facility] # Baso <0.03 0.01 - 0.08 K/ L 05/29/2025 3:24 AM EDT [facility] % Imm Grans 0.50(H) 0.01 - 0.43 % 05/29/2025 3:24 AM EDT [facility] # IG 0.04(H) 0.00 - 0.03 K/uL 05/29/2025 3:24 AM EDT [facility] Blood Venipuncture / Unknown 05/29/2025 2:50 AM EDT 05/29/2025 3:17 AM EDT Narrative [facility] - 05/29/2025 3:24 AM EDT [...] MD LAB BLOOD ORDERABLES Final Re sult [facility] [address] [phone] * (ABNORMAL) Basic Metabolic Panel (05/29/2025 2:50 AM EDT) Only the most recent of3 resultswithin the time period is included. Sodium 143 136 - 145 meq/L 05/29/2025 3:48 AM EDT [facility] Potassium 4.6 3.4 - 5.1 meq/L 05/29/2025 3:48 AM EDT [facility] CO2 20(L) 22 - 29 meq/L 05/29/2025 3:48 AM EDT [facility] Chloride 113(H) 98 - 112 meq/L 05/29/2025 3:48 AM EDT [facility] Glucose 134(H) 82 - 115 mg/dL 05/29/2025 3:48 AM EDT [facility] BUN 83.4(H) 9.8 - 20.1 mg/dL 05/29/2025 3:48 AM EDT [facility] Creatinine 3.13(H) 0.57 - 1.11 mg/dL 05/29/2025 3:48 AM EDT [facility] BUN/Creatinine 27(H) 8 - 20 05/29/2025 3:48 AM EDT [facility] Calcium 8.7 8.4 - 10.2 mg/dL 05/29/2025 3:48 AM EDT [facility] Anion Gap 15(H) 4 - 12 05/29/2025 3:48 AM EDT [facility] eGFR (mL/min/1.73m2) 14(L) >=60 mL/min/1.7 3m2 05/29/2025 3:48 AM EDT [facility] Comment:ESTIMATED GFR IS NOT ACCURATE CREATININE CLEARANCE IN PREDICTING GLOMERULAR FILTRATION RATE. ESTIMATED GFR IS NOT APPLICABLE FOR DIALYSIS PATIENTS. Osmolality Calc 312.2 mOsm/kg 3:48 AM EDT [facility] Blood Venipuncture / Unknown 05/29/2025 2:50 AM EDT 05/29/2025 3:18 AM EDT us Vane Corley MD LAB BLOOD ORDERABLES Final Re sult [facility] [address] [phone] * Urea Nitrogen, random urine (05/28/2025 1:19 PM EDT) Urea Nitrogen, Ur 562 mg/dL 05/28/2025 1:45 PM EDT [facility] Comment: Reference Range not established Reference range not established Urine 05/28/2025 1:19 PM EDT 05/28/2025 1:21 PM EDT us Pa Santos MD URINE ORDERABLES Final Result Performing Organization Address [facility]/ZIP Co de Phone Number [facility] [address] [phone] * (ABNORMAL) Protein / creatinine ratio, urine (05/28/2025 1:19 PM EDT) Creatinine, Ur 39.00(L) 47.00 - 110.00 mg/dL 05/28/2025 1:45 PM EDT [facility] Protein Creatinine Ratio 1.95(H) <=0.20 05/28/2025 1:45 PM EDT [facility] Protein, Urine 76(H) 1 - 14 mg/dL 05/28/2025 1:45 PM EDT [facility] Urine 05/28/2025 1:19 PM EDT 05/28/2025 1:21 PM EDT us Pa Santos MD URINE ORDERABLES Final Result Performing Organization Address [facility]/ZIP Co hi Phone Number [facility] [address] [phone] * Sodium, random urine (05/28/2025 1:19 PM EDT) Sodium Urine 56 See Comment meq/L 05/28/2025 1:45 PM EDT [facility] Comment:Reference Range not established Urine 05/28/2025 1:19 PM EDT 05/28/2025 1:21 PM EDT us Pa Santos MD URINE ORDERABLES Final Result Performing Organization Address [facility] Co hi Phone Number [facility] [address] [phone] * (ABNORMAL) Urinalysis w/Microscopic (05/28/2025 1:19 PM EDT) Color, UA Light Yellow 05/28/2025 1:29 PM EDT [facility] Clarity, UA Clear Clear 05/28/2025 1:29 PM EDT [facility] Specific [place], UA 1.012 1.005 - 1.030 05/28/2025 1:29 PM EDT [facility] pH, UA 5.5(L) 6.0 - 8.0 05/28/2025 1:29 PM EDT [facility] Leukocytes, UA Negative Negative 05/28/2025 1:29 PM EDT [facility] Nitrite, UA Negative Negative 05/28/2025 1:29 PM EDT [facility] Protein, UA 1+(A) Negative 05/28/2025 1:29 PM EDT [facility] Glucose, UA 4+(A) Normal 05/28/2025 1:29 PM EDT [facility] Ketones, UA Negative Negative 05/28/2025 1:29 PM EDT [facility] Urobilinogen, UA Normal Normal 05/28/2025 1:29 PM EDT [facility] Bilirubin, UA Negative Negative 05/28/2025 1:29 PM EDT [facility] Blood, UA Negative Negative 05/28/2025 1:29 PM EDT [facility] RBC, UA 0-2(A) None Seen /HPF 05/28/2025 1:29 PM EDT [facility] WBC, UA 0-2(A) None Seen /HPF 05/28/2025 1:29 PM EDT [facility] Bacteria, UA None Seen None Seen, Trace 05/28/2025 1:29 PM EDT [facility] SQUAMOUS EPITHELIAL 0-2(A) None Seen /HPF 05/28/2025 1:29 PM EDT [facility] Specimen Source Urine, Sterile Collection 05/28/2025 1:29 PM EDT [facility] Urine STERILE URINE SPECIMEN CONTAINER / Unknown 05/28/2025 1:19 PM EDT 05/28/2025 1:24 PM EDT us Pa Santos MD URINE ORDERABLES Final Result [facility] [address] [phone] * (ABNORMAL) CBC - Hemogram (SJ-BKR) (05/28/2025 6:26 AM EDT) WBC 7.8 4.0 - 10.0 K/ L 05/28/2025 6:43 AM EDT [facility] RBC 2.59(L) 3.93 - 5.22 M/ L 05/28/2025 6:43 AM EDT [facility] Hemoglobin 7.9(L) 11.2 - 15.7 GM/DL 05/28/2025 6:43 AM EDT [facility] Hematocrit 24.7(L) 34.1 - 44.9 % 05/28/2025 6:43 AM EDT [facility] MCV 95 79 - 95 fL 05/28/2025 6:43 AM EDT [facility] MCH 30.5 25.6 - 32.2 pg 05/28/2025 6:43 AM EDT [facility] MCHC 32.0(L) 32.2 - 35.5 GM/DL 05/28/2025 6:43 AM EDT [facility] RDW 18.3(H) 11.7 - 14.4 % 05/28/2025 6:43 AM EDT [facility] Platelets 193 140 - 375 K/CU MM 05/28/2025 6:43 AM EDT [facility] MPV 10.7 9.4 - 12.3 fL 05/28/2025 6:43 AM EDT [facility] Blood Venipuncture / Unknown 05/28/2025 6:26 AM EDT 05/28/2025 6:33 AM EDT Vane Corley MD LAB BLOOD ORDERABLES Final Re sult Performing Organization Address City/State/[facility] Co de Phone Number [facility] [address] [phone] * (ABNORMAL) Uric acid (05/28/2025 6:26 AM EDT) Uric Acid 6.7(H) 2.5 - 6.2 mg/dL 05/28/2025 12:09 PM EDT [facility] Blood Venipuncture / Unknown 05/28/2025 6:26 AM EDT 05/28/2025 6:33 AM EDT us Pa Santos MD LAB BLOOD ORDERABLES Final Resu lt [facility] [address] [phone] * Magnesium (05/28/2025 6:26 AM EDT) Magnesium 1.8 1.6 - 2.6 mg/dL 05/28/2025 6:38 PM EDT [facility] Blood Venipuncture / Unknown 05/28/2025 6:26 AM EDT 05/28/2025 6:33 AM EDT us Vane Corley MD LAB BLOOD ORDERABLES Final Re sult [facility] [address] [phone] * Lactate dehydrogenase (LDH) (05/28/2025 6:26 AM EDT) LDH 165 125 - 220 U/L 05/28/2025 12:09 PM EDT [facility] Blood Venipuncture / Unknown 05/28/2025 6:26 AM EDT 05/28/2025 6:33 AM EDT us Pa Santos MD LAB BLOOD ORDERABLES Final Resu lt [facility] [address] [phone] * Creatine Kinase (CK) (05/28/2025 6:26 AM EDT) Total CK 41 29 - 168 U/L 05/28/2025 12:09 PM EDT [facility] Blood Venipuncture / Unknown 05/28/2025 6:26 AM EDT 05/28/2025 6:33 AM EDT us Pa Santos MD LAB BLOOD ORDERABLES Final Resu lt [facility] [address] [phone] * Transfuse RBC (05/28/2025 5:09 AM EDT) Only the most recent of2 resultswithin the time period is included. Karlo Hercules PA-C FS_MODEL_IP_BLOOD TRANSFUSION ORDERABLES Final Result * Prepare RBC: 1 Units (05/27/2025 10:54 PM EDT) Only the most recent of2 resultswithin the time period is included. Issue Date/Time [facility] ([place] ([place] Product Identification Red Blood Cells [facility] ([place]) Product Code [id number] [facility] [place] Status Information TRANSFUSED [facility]) Unit Number [id number] [facility] [place]) Blood Type 5100 [facility] [place] Cross Match Results Compatible [facility] [place] Karlo Hercules PA-C FS_MODEL_IP_BLOOD BANK PRODUCT ORDERABLES Final Result [facility] ([place]) [address] [place] [address], [facility] [phone] * (ABNORMAL) Hemoglobin and hematocrit (05/27/2025 10:34 PM EDT) Hemoglobin 6.4(LL) 11.2 - 15.7 GM/DL 05/27/2025 10:42 PM EDT [facility] Hematocrit 19.7(L) 34.1 - 44.9 % 05/27/2025 10:42 PM EDT [facility] Blood Venipuncture / Unknown 05/27/2025 10:34 PM EDT 05/27/2025 10:38 PM EDT Vane Corley MD LAB BLOOD ORDERABLES Final Re sult Performing Organization Address [facility]/ZIP Co de Phone Number [facility] [address] [phone] * Type and Screen (05/27/2025 3:48 PM EDT) ABO/Rh O Positive 05/27/2025 3:[address] [facility] ([place] [place] BLOOD [facility] ([place]) Antibody Screen Negative 05/27/2025 3:54 PM EDT [facility] ([place] HISTCHK HIST CHECK PERFORMED 05/27/2025 3:54 PM EDT [facility] ([place] Blood Venipuncture / Unknown 05/27/2025 3:48 PM EDT 05/27/2025 3:54 PM EDT us Vane Corley MD [facility] BLOOD BANK TEST ORDERABLE S Final Result Performing Organization Address [facility]/ZIP Co de Phone Number [facility] ([place] [address] [phone] * (ABNORMAL) Iron and TIBC (05/27/2025 3:47 PM EDT) Iron 74 50 - 170 ug/dL 05/27/2025 4:30 PM EDT [facility] TIBC 203(L) 250 - 435 ug/dL 05/27/2025 4:30 PM EDT [facility] % Saturation 36 % 05/27/2025 4:30 PM EDT [facility] UIBC 129 05/27/2025 4:30 PM EDT [facility] Blood Venipuncture / Unknown 05/27/2025 3:47 PM EDT 05/27/2025 3:53 PM EDT Vane Corley MD LAB BLOOD ORDERABLES Final Re sult Performing Organization Address City/[facility]/ZIP Co de Phone Number [facility] [address] [phone] * Ferritin (05/27/2025 3:47 PM EDT) Ferritin 115.24 4.63 - 204.00 ng/mL 05/27/2025 4:30 PM EDT [facility] Blood Venipuncture / Unknown 05/27/2025 3:47 PM EDT 05/27/2025 3:53 PM EDT us Vane Corley MD LAB BLOOD ORDERABLES Final Re sult [facility] [address] [phone] from Last 3 Months Insurance [employer] MEDICARE PPO Advance Directives For more information, please contact: [phone] * Full Code (Latest Code Status on File) Date Activated Date Inactivated Comments 05/27/2025 2:15 PM 05/29/2025 5:45 PM * Full Code Date Activated Date Inactivated Comments 07/25/2023 6:51 AM 08/24/2023 6:19 PM Care Teams Clay Artist Relationship Specialty Start Date End Date Anand Noble MD [address] [place] [address] PCP - General Family Medicine 07/29/23
[2025-07-06 13:20] VITALS: BMI 25.2
[2025-07-06 13:50] LABS: Hematocrit 24.3 % (37.0-47.0); Hemoglobin 7.5 g/dL (12.2-16.2)
[2025-07-06 14:02] LABS: Blood Urea Nitrogen 52 mg/dl (7-17); Creatinine Clearance Estimated 16 mL/min (50-200); Creatinine,Serum 2.80 mg/dl (0.52-1.04); Estimated Glomerular Filt Rate 16 ml/min (>60); GFR (African American) 20 ML/MIN (>60); Iron 46 ug/dL (37-170); Potassium 4.3 mmoL/L (3.5-5.1)
[2025-07-06 14:03] VITALS: BP 163/52; PULSE 68; RESP 16; O2SAT 100
[2025-07-06] MEDS: EPOETIN 20,000 UNITS/ML MDV 20000 UNIT SUBCUT (14:03)
--- NOTE | 2025-07-06 14:11 | PC.NURSE ---
1322-Blood drawn using butterfly needle to check labs to determine if pt needs Procrit injection.
[2025-07-06 14:12] LABS: Total Iron Binding Capacity 399 ug/dL (265-497)
[2025-07-06 14:40] LABS: Ferritin 38.8 ng/ml (11.1-264)
== END 2025-07-06 23:59 | disposition home or self-care (01) ==
LOC: INF 13:15
PROVIDERS: PCP Nurse Practitioner Family; Visit Provider Hospitalist
DX: N18.4 Chronic kidney disease, stage 4 (severe) (principal); D63.1 Anemia in chronic kidney disease
CPT/HCPCS: 82565; 82728; 83540; 83550; 84132; 84520; 85014; 85018; 96372; J0885

== ENCOUNTER 2025-07-18 13:23 | Outpatient (CLI) | payer MEDICARE, SELFPAY ==
--- NOTE | 2025-07-18 13:26 | PC.NURSE ---
1326-collected labs via venipuncture stick in right ac with butterfly needle;will wait on results
--- OUTSIDE RECORDS SUMMARY | 2025-07-18 13:30 | XMS_ITS | Data Portability ---
Author Organization [place] - [facility], [facility], [facility], [facility] Address [address] [place] [address] Assessment No assessment recorded. Plan of Treatment Reminders Order Date Submit Date Provider Last Modified By Organization Details Last Modified Time Details Appointments None recorded. Lab SARS CoV 2 RNA (COVID-19), QL, meat slicer-PCR, respiratory specimen [address] [facility], [address] [place] [address], [id number], 1 05:02:24 Referral None recorded. Procedures None [...] History Nothing Reported. Medical History Condition Response Heart Problems Y Lung Disease Y Diabetes Y Arthritis Y Kidney Disease Y Gynecological HistoryNo gynecological history recorded. 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 Client has the potential of being [...] pain, or diarrhea. Lyssa Trejo, ANGELA, A [address] [place] [address], [id number], [facility] - [facility], [facility] 03/10/2020 16:30:59 OBGyn Episode No OBEpisode recorded.
[2025-07-18 13:32] LABS: Hematocrit 24.9 % (37.0-47.0); Hemoglobin 7.6 g/dL (12.2-16.2)
[2025-07-18 13:41] LABS: Potassium 4.0 mmoL/L (3.5-5.1)
[2025-07-18 13:44] LABS: Creatinine,Serum 3.10 mg/dl (0.52-1.04); Estimated Glomerular Filt Rate 14 ml/min (>60); GFR (African American) 17 ML/MIN (>60)
[2025-07-18] MEDS: EPOETIN 20,000 UNITS/ML MDV 20000 UNIT SUBCUT (13:51)
[2025-07-18 14:00] VITALS: BP 157/59; PULSE 86; RESP 18; O2SAT 97
== END 2025-07-18 23:59 | disposition home or self-care (01) ==
PROVIDERS: PCP Nurse Practitioner Family; Visit Provider Hospitalist
DX: N18.4 Chronic kidney disease, stage 4 (severe) (principal); D63.1 Anemia in chronic kidney disease
CPT/HCPCS: 82565; 84132; 85014; 85018; 96372; J0885

== ENCOUNTER 2025-08-01 12:20 | Emergency (ER) | payer MEDICARE, SELFPAY ==
[2025-08-01] VITALS (7 sets, daily range): BP systolic 177–204; BP diastolic 55–85; PULSE 68–87; RESP 15–20; TEMP 36.9; O2SAT 93–99; BMI 25.5
--- NOTE | 2025-08-01 | ECG_ITS ---
APPROVED REPORT Exam: Resting ECG HR:69 bpm ECG Measurements Heart Rate 69 AXES NE 197 P 60 QRSd 158 QRS 34 QT 439 T 45 QTc 458 Conclusion SINUS RHYTHM POSSIBLE LEFT ATRIAL ENLARGEMENT [-0.1mV P-WAVE IN V1/V2] LEFT BUNDLE BRANCH BLOCK [120+ ms QRS DURATION, 80+ ms Q/S IN V1/V2, 85+ ms R IN I/aVL/V5/V6] ABNORMAL ECG No STEMI Electronically signed by : KYLER TAYLOR, 08/03/2025 03:15:45
--- NOTE | 2025-08-01 12:21 | HMH.EDGENADL ---
Discharge Plan Disposition Patient Disposition: Home, Self-Care Condition: Fair Prescriptions Prescriptions: No Action levothyroxine 75 mcg tablet 75 mcg PO DAILY pantoprazole 40 mg tablet,delayed release (DR/EC) 40 mg PO DAILY Patient Comments: TAKE 1 TABLET BY MOUTH EVERY DAY duloxetine 30 mg capsule,delayed release(DR/EC) 30 mg PO DAILY atorvastatin 80 mg Tablet 80 mg PO HS ipratropium-albuterol 0.5 mg-3 mg(2.5 mg base)/3 mL Solution For Nebulization 3 ml INHALATION Q4HP PRN (Reason: Shortness Of Breath) ferrous sulfate 325 mg (65 mg iron) Tablet,Delayed Release (Dr/Ec) 325 mg PO DAILY fluticasone propionate 50 mcg/actuation [place],Suspension 1 spray INTRANASAL DAILY Rx Instructions: administer into each nostril insulin lispro [Humalog KwikPen Insulin] 100 unit/mL Insulin Pen See Protocol SQ ACHS Protocol: Insulin Corrective Low-Dose Regimen Condition: Fingerstick Blood Glucose Dose/Route: Insulin Units Condition: 151-200 mg/dl Dose/Route: 2 unit/SQ Condition: 201-250 mg/dl Dose/Route: 4 units/SQ Condition: 251-300 mg/dl Dose/Route: 6 units/SQ Condition: 301-350 mg/dl Dose/Route: 8 units/SQ Condition: 351-400 mg/dl Dose/Route: 10 units/SQ Condition: 401-450 mg/dl Dose/Route: 12 units/SQ Condition: > 450 mg/dl Dose/Route: CALL MD Protocol Text: Low Intensity Sliding Scale Insulin budesonide-formoterol 160-4.5 mcg/actuation Hfa Aerosol Inhaler 2 puff INHALATION BID insulin glargine U-300 conc [Toujeo SoloStar U-300 Insulin] 300 unit/mL (1.5 mL) Insulin Pen 5 unit SQ HS sennosides-docusate sodium 8.6-50 mg Capsule 1 tab PO BIDP PRN (Reason: Constipation) loratadine 10 mg Tablet 10 mg PO DAILY melatonin 5 mg Tablet 5 mg PO HS carvedilol 12.5 mg tablet 12.5 mg PO BID aspirin 81 mg tablet,delayed release (DR/EC) 81 mg PO DAILY trazodone 50 mg tablet 50 mg PO HS hydralazine 50 mg tablet 50 mg PO TID insulin lispro 100 unit/mL solution 3 unit SQ TID ondansetron 4 mg tablet,disintegrating 4 mg PO Q6HP PRN (Reason: Nausea And Vomiting) Systane Balance 0.6 % Drops 1 drp Eye-Both QID Jardiance 10 mg tablet 10 mg PO DAILY Lokelma 5 gram powder in packet 5 g PO DAILY acetaminophen 325 mg tablet 650 mg PO DAILY bumetanide 2 mg tablet 2 mg PO DAILY albuterol sulfate 90 mcg/actuation HFA aerosol inhaler 2 puff INHALATION Q4HP PRN (Reason: Shortness Of Breath) doxazosin 2 mg tablet 2 mg PO HS oxycodone 5 mg Tablet 5 mg PO Q8HP PRN (Reason: Moderate Pain (Scale Score 5-6)) isosorbide mononitrate 60 mg tablet extended release 24 hr 60 mg PO DAILY polyethylene glycol 3350 [Miralax] 17 gram/dose powder 17 g PO DAILYP PRN (Reason: Constipation) guaifenesin 600 mg Tablet Extended Release 600 mg PO BID ipratropium-albuterol 0.5 mg-3 mg(2.5 mg base)/3 mL Solution For Nebulization 3 ml INHALATION Q4H PRN (Reason: Breathing Problems) insulin aspart U-100 [Novolog U-100 Insulin aspart] 100 unit/mL Solution 3 unit SQ TID Rx Instructions: 3 units TID with meals insulin aspart U-100 [Novolog U-100 Insulin aspart] 100 unit/mL Solution See Protocol SQ TIDP PRN (Reason: Diabetes) Protocol: Insulin Corrective Low-Dose Regimen Condition: Fingerstick Blood Glucose Dose/Route: Insulin Units Condition: 151-200 mg/dl Dose/Route: 2 unit/SQ Condition: 201-250 mg/dl Dose/Route: 4 units/SQ Condition: 251-300 mg/dl Dose/Route: 6 units/SQ Condition: 301-350 mg/dl Dose/Route: 8 units/SQ Condition: 351-400 mg/dl Dose/Route: 10 units/SQ Condition: 401-450 mg/dl Dose/Route: 12 units/SQ Condition: > 450 mg/dl Dose/Route: CALL MD Protocol Text: Low Intensity Sliding Scale Insulin Rx Instructions: TID per sliding scale fluticasone propion-salmeterol 250-50 mcg/dose Blister With Device 1 inh INHALATION BID albuterol sulfate 90 mcg/actuation Hfa Aerosol Inhaler 2 puff INHALATION Q4HP PRN (Reason: Shortness Of Breath) cholecalciferol (vitamin D3) 1,250 mcg (50,000 unit) Tablet 1,250 mcg PO WEEKLY Referrals Follow up/Referrals: Nhung Lopez APRN [Primary Care Provider, Medical] - See instructions Jesus Morales PA [Physician Hair Machine Operator, Cardiology] - See instructions Activity Restrictions/Add. Instructions Additional Instructions/Restrictions: Follow-up with cardiology to address your chest pain. Return if any signs or symptoms of bleeding. Please follow up with your primary care provider in 2-3 days. Please return to ED if your symptoms worsen, change in location, change in severity, new symptoms develop or if you become concerned for your health. Clinical Impressions Clinical Impression: Anemia, Chest pain Print Language Print Language: French Discharge ED Provider: Neo Starr Adult HPI General Chief complaint: PAIN Stated complaint: abnormal labs Time Seen by Provider: 08/01/25 12:21 Related Data Home Medications ?Medication ?Instructions ?Recorded ?Confirmed duloxetine 30 mg capsule,delayed 30 mg PO DAILY 07/28/22 07/06/25 release levothyroxine 75 mcg tablet 75 mcg PO DAILY 07/28/22 07/06/25 pantoprazole 40 mg tablet,delayed 40 mg PO DAILY 07/28/22 07/06/25 release atorvastatin 80 mg tablet 80 mg PO HS 05/28/24 07/06/25 budesonide-formoterol HFA 160 2 puff inhalation BID 05/28/24 07/06/25 mcg-4.5 mcg/actuation aerosol inhaler ferrous sulfate 325 mg (65 mg 325 mg PO DAILY 05/28/24 07/06/25 iron) tablet,delayed release fluticasone propionate 50 1 spray intranasal DAILY 05/28/24 07/06/25 mcg/actuation nasal spray,suspension insulin glargine U-300 conc 300 5 unit SQ HS 05/28/24 07/06/25 unit/mL (1.5 mL) subcutaneous pen (Toujeo SoloStar U-300 Insulin) insulin lispro 100 unit/mL See Protocol SQ ACHS 05/28/24 07/06/25 subcutaneous pen (Humalog KwikPen (U-100) Insulin) ipratropium 0.5 mg-albuterol 3 mg 3 ml inhalation Q4HP PRN Shortness 05/28/24 07/06/25 (2.5 mg base)/3 mL nebulization Of Breath soln sennosides 8.6 mg-docusate sodium 1 tab PO BIDP PRN Constipation 05/28/24 07/06/25 50 mg capsule loratadine 10 mg tablet 10 mg PO DAILY 08/19/24 07/06/25 melatonin 5 mg tablet 5 mg PO HS 08/19/24 07/06/25 aspirin 81 mg tablet,delayed 81 mg PO DAILY 11/30/24 07/06/25 release Held on 03/24/25. Instructions: Follow-up with GI/cardiology carvedilol 12.5 mg tablet 12.5 mg PO BID 11/30/24 07/06/25 hydralazine 50 mg tablet 50 mg PO TID 11/30/24 07/06/25 insulin lispro 100 unit/mL 3 unit SQ TID 11/30/24 07/06/25 subcutaneous solution ondansetron 4 mg disintegrating 4 mg PO Q6HP PRN Nausea And 11/30/24 07/06/25 tablet Vomiting trazodone 50 mg tablet 50 mg PO HS 11/30/24 07/06/25 acetaminophen 325 mg tablet 650 mg PO DAILY 03/21/25 07/06/25 albuterol sulfate 90 mcg/actuation 2 puff inhalation Q4HP PRN 03/21/25 07/06/25 aerosol inhaler Shortness Of Breath bumetanide 2 mg tablet 2 mg PO DAILY 03/21/25 07/06/25 doxazosin 2 mg tablet 2 mg PO HS 03/21/25 07/06/25 empagliflozin 10 mg tablet 10 mg PO DAILY 03/21/25 07/06/25 (Jardiance) isosorbide mononitrate 60 mg 60 mg PO DAILY 03/21/25 07/06/25 tablet,extended release 24 hr oxycodone 5 mg tablet 5 mg PO Q8HP PRN Moderate Pain 03/21/25 07/06/25 (Scale Score 5-6) polyethylene glycol 3350 17 17 g PO DAILYP PRN Constipation 03/21/25 07/06/25 gram/dose oral powder (Miralax) propylene glycol 0.6 % eye drops 1 drp Eye-Both QID 03/21/25 07/06/25 (Systane Balance) sodium zirconium cyclosilicate 5 5 g PO DAILY 03/21/25 07/06/25 gram oral powder packet (Lokelma) albuterol sulfate 90 mcg/actuation 2 puff inhalation Q4HP PRN 06/08/25 07/06/25 aerosol inhaler Shortness Of Breath cholecalciferol (vitamin D3) 1,250 1,250 mcg PO WEEKLY 06/08/25 07/06/25 mcg (50,000 unit) tablet fluticasone 250 mcg-salmeterol 50 1 inh inhalation BID 06/08/25 07/06/25 mcg/dose blistr powdr for inhalation guaifenesin 600 mg tablet,extended 600 mg PO BID 06/08/25 07/06/25 release insulin aspart U-100 100 unit/mL 3 unit SQ TID Diabetes 06/08/25 07/06/25 subcutaneous solution (Novolog U-100 Insulin aspart) insulin aspart U-100 100 unit/mL See Protocol SQ TIDP PRN Diabetes 06/08/25 07/06/25 subcutaneous solution (Novolog U-100 Insulin aspart) ipratropium 0.5 mg-albuterol 3 mg 3 ml inhalation Q4H PRN Breathing 06/08/25 07/06/25 (2.5 mg base)/3 mL nebulization Problems soln Allergies Allergy/AdvReac Type Severity Reaction Status Date / Time adhesive tape Allergy Unknown Verified 06/08/25 14:12 allergy reaction ciprofloxacin Allergy Unknown Verified 06/08/25 14:12 allergy reaction codeine Allergy Unknown Verified 06/08/25 14:12 allergy reaction doxycycline Allergy Unknown Verified 06/08/25 14:12 allergy reaction erythromycin base Allergy Unknown Verified 06/08/25 14:12 allergy reaction latex Allergy Unknown Verified 06/08/25 14:12 allergy reaction Penicillins Allergy Unknown Verified 06/08/25 14:12 allergy reaction Sulfa (Sulfonamide Allergy Unknown Verified 06/08/25 14:12 Antibiotics) allergy reaction PFSH PFSH Disclaimer: The information contained in this section may have been updated after the patient was seen, as this information can be updated by other users. Medical History Hypothyroid Diabetes mellitus Anemia COPD (chronic obstructive pulmonary disease) Anxiety HLD (hyperlipidemia) CKD (chronic kidney disease) Heart failure Surgical History H/O tubal ligation H/O cataract removal with insertion of prosthetic lens H/O hand surgery History of appendectomy Family History Other No significant family history Social History Smoking Status: Never smoker alcohol intake: never current occupational status: retired Travel in the last 8 weeks?: None Have you lived/traveled outside [place] in past 30 days?: No Contact w/someone who lives/traveled outside [place] past 30 days?: No Exposure to someone with infectious disease in past 14 days?: No Do you have a fever (greater than 100.4 F or 38 C)?: No Have you tested positive for COVID-19?: No Exposed to someone with COVID-19 in past 14 days?: No Do you have a sore throat?: No Do you have a cough?: No Do you have any weakness?: No Do you have any diarrhea?: No Are you experiencing any unusual bleeding?: No Do you have any muscle aches/pain?: No Do you have any abdominal pain?: No Are you experiencing loss of taste or smell?: No Other Medical History Have you received the Flu Vaccine for this season: No Have you received the Pneumonia Vaccine: No ROS Obtained: Yes All systems reviewed & no additional complaints except as documented Physical Exam General General appearance: alert and in no apparent distress Head Head exam: atraumatic and normocephalic Eye Eye exam: Present PERRL and EOMI ENT ENT exam: Present normal oropharynx Neck Neck exam: Present full ROM and trachea midline Chest Chest inspection: Present symmetric chest wall rise and tenderness Respiratory Respiratory exam: Present normal lung sounds bilaterally; Absent stridor Cardiovascular Cardiovascular exam: Present regular rate and normal rhythm Abdominal Exam Abdominal exam: Present soft; Absent distention or tenderness Extremities Exam Extremities exam: Present full ROM Neurological Exam Neurological exam: Present alert and oriented X3 Psychiatric Psychiatric exam: Present normal mood Skin Skin exam: Present warm and dry Medical Decision Making Medical Records Screening: Per USPSTF and CDC recommendations, given the prevalence of disease in our region, it is our hospital?s policy to screen for HIV and viral Hepatitis for all patients aged 18 and over and those with ongoing risk factors. John Inquiry Pt receiving controlled substance: No Vital Signs: 08/01/25 12:24 08/01/25 12:28 08/01/25 12:31 Temperature 98.5 F Temperature Source Oral Pulse Rate 74 69 Pulse Rate [Right Radial] 74 Respiratory Rate 20 Blood Pressure 197/76 H 197/73 H Blood Pressure [Right Arm] 197/76 H Blood Pressure Mean [Right Arm] 116 Blood Pressure Source [Right Arm] Automatic Cuff Blood Pressure Position [Right Arm] Sitting 02 Sat by Pulse Oximetry 97 93 L 95 Oxygen Delivery Method Nasal Cannula Nasal Cannula Nasal Cannula Oxygen Flow Rate (LPM) 3 3 3 08/01/25 13:01 08/01/25 13:40 08/01/25 14:01 Temperature Temperature Source Pulse Rate 70 71 68 Pulse Rate [Right Radial] Respiratory Rate Blood Pressure 198/72 H 179/55 H 204/74 H Blood Pressure [Right Arm] Blood Pressure Mean [Right Arm] Blood Pressure Source [Right Arm] Blood Pressure Position [Right Arm] 02 Sat by Pulse Oximetry 98 96 96 Oxygen Delivery Method Nasal Cannula Nasal Cannula Nasal Cannula Oxygen Flow Rate (LPM) 3 3 3 Lab Data Lab Results 08/01/25 12:14: WBC 9.8, RBC 2.59 L, Hgb 7.6 L, Hct 25.3 L, MCV 97.7, MCH 29.3, MCHC 30.0 L, RDW 17.0, Plt Count 353, MPV 10.4, Neut % (Auto) 84.0 H, Lymph % (Auto) 7.3 L, [place] % (Auto) 7.1, Eos % (Auto) 0.9, Baso % (Auto) 0.3, Neut # (Auto) 8.2 H, Lymph # (Auto) 0.7, [place] # (Auto) 0.7, Eos # (Auto) 0.1, Baso # (Auto) 0.0, PT 11.3, INR 1.02, Sodium 140, Potassium 4.7, Chloride 106, Carbon Dioxide 22, Anion Gap 16.7 H, BUN 73 H, Creatinine 2.90 H, Estimated Creat Clear 17, Estimated GFR 15 L*, Est GFR ( Amer) 19 L*, Glucose 188 H, Calcium 9.2, Total Bilirubin 0.6, AST 32, ALT 20, Alkaline Phosphatase 84, Troponin I 0.01, Total Protein 7.4 D, Albumin 3.7, Globulin 3.7 H, Albumin/Globulin Ratio 1.0 L, Lipase 80 08/01/25 12:14 08/01/25 12:14 Orders (Tests/Meds): ORDERS Category Date Time Status Type and Screen Stat BBK 08/01/25 13:15 Received XR chest portable Stat Exams 08/01/25 12:59 Completed CBC w/Auto Diff [Complete Blood Count Auto Diff] Stat Lab 08/01/25 12:14 Completed CMP [Comprehensive Metabolic Panel] Stat Lab 08/01/25 12:14 Completed Lipase Stat Lab 08/01/25 12:14 Completed PT INR [Prothrombin Time INR] Stat Lab 08/01/25 12:14 Completed Trop I [Troponin I] Stat Lab 08/01/25 12:14 Completed Troponin I Q3H Lab 08/01/25 16:00 Ordered Troponin I Q3H Lab 08/01/25 19:00 Ordered ECG Data Tracing #1: Independently interpreted by myself demonstrate normal sinus rhythm with a left bundle branch block without obvious acute ischemic ST change when applying Sgarbossa criteria. RA enlargement HEART Score History (anamnesis): Slightly suspicious ECG: Normal Age: >65 years Risk factors: Atherosclerosis history Troponin: </= normal limit HEART Score: 4 Medical Decision Narrative: Patient is an 85-year-old female with a history of chronic kidney disease, anemia, heart failure, COPD, hypertension, diabetes. [facility]. Reportedly was anemic at home with a hemoglobin of 6.8 and so was sent here for further evaluation. She has had a history of GI bleeding previously. Per my review the OCT, back in February, she had clipping performed and was transfused 2 units of PRBC. She occasionally has to get transfused. On arrival here, she is afebrile hemodynamically stable and in no acute distress. On exam, she appears pale, but warm and well-perfused with full and equal pulses bilateral upper extremities. She does report that she has a bandlike chest pain across the anterior aspect of her chest that is worse with movement. She denies any significant shortness of breath. She is reproducibly tender along her chest specifically at the costochondral junction, most suspicious for costochondritis, however she does have an atherosclerosis history, therefore felt reasonable to proceed with ACS workup with troponins chest x-ray and EKG. Her EKG is not obviously ischemic. She does appear pale, but she is hemodynamically stable. Repeat hemoglobin here is normal at 7.6. She denies any history of bleeding to me she denies any melena hematochezia. Regarding her chest pain, it seems more likely costochondritis. Chest x-ray independently interpreted by myself demonstrate no acute cardiopulmonary abnormality. Labs reviewed demonstrate evidence of CKD with her creatinine at her baseline, no significant electrolyte derangement. Heart score 4. Will send with urgent cardiology follow-up. I suspect that this is not ACS in nature based on clinical examination. Given labs are at their baseline today, felt reasonable to discharge patient with outpatient follow-up. My clinical impression was discussed with the patient and all questions were answered. Return precautions were given, with verbalization of understanding and agreement of this plan. Any pending results are to be followed up online. Critical Care Critical Care Time Critical Care Time: No
--- NOTE | 2025-08-01 12:59 | XR_ITS ---
PROCEDURE INFORMATION: Exam: XR Chest Exam date and time: 08/01/2025 1:41 PM Age: 85 years old Clinical indication: Pain; Other: Cp TECHNIQUE: Imaging protocol: Radiologic exam of the chest. Views: 1 view. COMPARISON: CT CHEST WO CON 03/21/2025 1:53 PM FINDINGS: Lungs: Increased dependent left pleural effusion with increased compressive atelectasis of the lower left lung. Stable peripheral fibrosis of the lungs. Pleural spaces: See Lungs finding. Heart/Mediastinum: Unremarkable. No cardiomegaly. Bones/joints: Unremarkable. IMPRESSION: Increased left pleural effusion with increased compressive atelectasis of the lower left lung. Pneumonia is not excluded.
[2025-08-01 13:07] LABS: Hematocrit 25.3 % (37.0-47.0); Hemoglobin 7.6 g/dL (12.2-16.2); Immature Granulocytes % 0.4 %; Mean Corpuscular HGB Conc 30.0 g/dL (31.8-35.4); Mean Corpuscular Hemoglobin 29.3 pg (27.0-31.2); Mean Corpuscular Volume 97.7 fl (81-99); Nucleated Red Blood Cells % 0 %; Platelet Count 353 K/mm3 (142-424); Red Blood Count 2.59 M/mm3 (4.20-5.40); Red Cell Distribution Width-SD 59.9 fL; White Blood Count 9.8 K/mm3 (4.8-10.8)
[2025-08-01 13:12] LABS: Alanine Aminotransferase 20 U/L (12-78); Albumin Level 3.7 g/dl (3.5-5.0); Albumin/Globulin Ratio 1.0 (1.1-1.8); Alkaline Phosphatase 84 U/L (38-126); Anion Gap 16.7 mEq/L (5-15); Aspartate Amino Transferase 32 U/L (14-36); Bilirubin,Total 0.6 mg/dl (0.2-1.3); Blood Urea Nitrogen 73 mg/dl (7-17); Calcium 9.2 mg/dl (8.4-10.2); Carbon Dioxide 22 mmol/L (22.0-30.0); Chloride 106 mmol/L (98-107); Creatinine Clearance Estimated 17 mL/min (50-200); Creatinine,Serum 2.90 mg/dl (0.52-1.04); Estimated Glomerular Filt Rate 15 ml/min (>60); GFR (African American) 19 ML/MIN (>60); Globulin 3.7 g/dL (1.3-3.2); Glucose 188 mg/dl (74-100); Lipase 80 U/L (23-300); Potassium 4.7 mmoL/L (3.5-5.1); Sodium 140 mmol/L (136-145); Total Protein,Serum 7.4 g/dl (6.3-8.2)
[2025-08-01 13:25] LABS: INR 1.02 (0.9-1.1); Prothrombin Time 11.3 seconds (10.1-12.5)
[2025-08-01 13:34] LABS: Troponin I 0.01 ng/ml (0.00-0.034)
--- NOTE | 2025-08-01 14:59 | PC.NURSE ---
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
== END 2025-08-01 15:27 | disposition home or self-care (01) ==
PROVIDERS: Emergency Provider Emergency Medicine; PCP Nurse Practitioner Family
DX: R07.9 Chest pain, unspecified (principal); D64.9 Anemia, unspecified; I44.7 Left bundle-branch block, unspecified; E11.22 Type 2 diabetes mellitus with diabetic chronic kidney disease; N18.9 Chronic kidney disease, unspecified; I12.9 Hypertensive chronic kidney disease with stage 1 through stage 4 chronic kidney disease, or unspecified chronic kidney disease; I50.30 Unspecified diastolic (congestive) heart failure; I13.0 Hypertensive heart and chronic kidney disease with heart failure and stage 1 through stage 4 chronic kidney disease, or unspecified chronic kidney disease; Z79.4 Long term (current) use of insulin
CPT/HCPCS: 71045; 80053; 83690; 84484; 85025; 85610; 86850; 93005; 99284